=== PATIENT | female | born 1965 | race Caucasian/White ===

== ENCOUNTER → 2017-05-23 12:04 | Outpatient (CLI) | payer MEDICAID, SELFPAY ==
--- NOTE | 2017-05-23 12:07 | RAD_ITS ---
STUDY: X-RAY - RIGHT SHOULDER REASON FOR EXAM: Female, 52 years old. Right shoulder pain following a recent fall. TECHNIQUE: 4 view(s) of the shoulder. COMPARISON: None. FINDINGS: Normal glenohumeral articulation. Normal acromioclavicular joint. Normal acromion. Normal humeral head and visualized proximal humerus. The soft tissue structures are unremarkable. Normal visualized pulmonary apex. RAD/Shoulder min 2 Views IMPRESSION: Normal x-ray examination of the shoulder. Electronically Signed: Mauro Gannon MD at 11:01 EST Tel [phone], Service support ,
== END ==
PROVIDERS: Family Provider Family Medicine; PCP Family Medicine; Visit Provider Family Medicine
DX: M25.519 Pain in unspecified shoulder (principal)
CPT/HCPCS: 73030

== ENCOUNTER 2017-05-28 11:57 | Emergency (ER) | payer MEDICAID, SELFPAY ==
[2017-05-28 11:58] VITALS: BP 192/96; PULSE 94; RESP 16; TEMP 36.6; O2SAT 99; BMI 41.6
--- NOTE | 2017-05-28 12:11 | RAD_ITS ---
STUDY: X-RAY - RIGHT ELBOW REASON FOR EXAM: Female, 52 years old. fell, elbow pain. TECHNIQUE: 3 view(s) of the elbow. COMPARISON: None. FINDINGS: Normal visualized humerus, radius and ulna. Normal radiocapitellar and ulnotrochlear articulations. The soft tissue structures are unremarkable. RAD/Elbow min 3 Views IMPRESSION: Normal x-ray examination of the elbow. Electronically Signed: Ashwin Chen MD at 12:49 EST Tel , Service support ,
--- NOTE | 2017-05-28 12:15 | ED.VISSUMM ---
- ER Visit Summary Date of Service: 05/28/17 Chief Complaint: Right elbow pain History of Present Illness: The patient is a 52 F who states that one week ago she tripped and fell sustaining a FOOSH injury to her right shoulder she went through [facility]. She had x-rays of the shoulder that were negative. Over the past several days she has had pain in her right elbow right biceps. She states that she has tried to not use the arm very much keeping it in a 90? flexion at the elbow joint. She notes soreness with range of motion. Physical Examination: Febrile vital signs are stable Right upper extremity the shoulder joint appears normal. Patient is tenderness over the biceps muscle. I can fully flex and extend the elbow though the patient guards it. The biceps appears tense. Neurovascular she is intact distally. Test Results: Elbow x-rays were negative for fracture Emergency Department Course and Treatment: Patient will be encouraged to use the joint. I think that this is most likely muscle spasm of the biceps from her guarding and not using the arm. I think if she would increase range of motion and use utilize it more that will solve the problem. Impression: Good right biceps muscle spasm This note was generated with [employer] dictation software. It may contain incorrect words, spelling, and punctuation that were not noted in review of the chart prior to signing ED Disposition - Plan for ED Patient: Disposition: Home or Assisted Living Chief Complaint: Upper Extremity Injury Instructions: ED Spasm Muscle Referrals: John Castillo MD [Primary Care Provider] - (as needed) Additional Instructions: You need to start using the arm. This should loosen up her muscles and allow it to return to normal.
--- NOTE | 2017-05-28 12:26 | ED.DCSUM_ITS ---
- ER Visit Summary Date of Service: 05/28/17 Chief Complaint: Right elbow pain History of Present Illness: The patient is a 52 F who states that one week ago she tripped and fell sustaining a FOOSH injury to her right shoulder she went through [facility]. She had x-rays of the shoulder that were negative. Over the past several days she has had pain in her right elbow right biceps. She states that she has tried to not use the arm very much keeping it in a 90? flexion at the elbow joint. She notes soreness with range of motion. Physical Examination: Febrile vital signs are stable Right upper extremity the shoulder joint appears normal. Patient is tenderness over the biceps muscle. I can fully flex and extend the elbow though the patient guards it. The biceps appears tense. Neurovascular she is intact distally. Test Results: Elbow x-rays were negative for fracture Emergency Department Course and Treatment: Patient will be encouraged to use the joint. I think that this is most likely muscle spasm of the biceps from her guarding and not using the arm. I think if she would increase range of motion and use utilize it more that will solve the problem. Impression: Good right biceps muscle spasm This note was generated with [employer] dictation software. It may contain incorrect words, spelling, and punctuation that were not noted in review of the chart prior to signing ED Disposition - Plan for ED Patient: Disposition: Home or Assisted Living Chief Complaint: Upper Extremity Injury Instructions: ED Spasm Muscle Referrals: John Castillo MD [Primary Care Provider] - (as needed) Additional Instructions: You need to start using the arm. This should loosen up her muscles and allow it to return to normal.
[2017-05-28 12:33] VITALS: BP 127/82; PULSE 63; RESP 18; O2SAT 97
== END 2017-05-28 12:37 | disposition home or self-care (01) ==
LOC: ED 12:35
PROVIDERS: Emergency Provider Emergency Medicine; Family Provider Family Medicine; PCP Family Medicine
DX: M62.838 Other muscle spasm (principal); E11.9 Type 2 diabetes mellitus without complications; I10 Essential (primary) hypertension; K21.9 Gastro-esophageal reflux disease without esophagitis; G47.33 Obstructive sleep apnea (adult) (pediatric)
CPT/HCPCS: 73080; 99282

== ENCOUNTER → 2017-08-07 16:25 | Outpatient (CLI) | payer MEDICAID, SELFPAY ==
--- NOTE | 2017-08-07 16:30 | RAD_ITS ---
STUDY: X-RAY - ABDOMEN/PELVIS REASON FOR EXAM: Female, 52 years old. Abdominal bloating. TECHNIQUE: AP supine and upright views of the abdomen and pelvis. COMPARISON: None. FINDINGS: Normal visualized lung bases. There is a long amount colonic feces. There is no obvious obstruction. There is no small bowel dilatation. There is no demonstrated free abdominal air. The visualized liver, spleen and kidneys are grossly normal in size and morphology. Normal soft tissue structures. Normal visualized osseous structures. RAD/[employer] Decub and/or Erect IMPRESSION: Constipation without obstruction. Electronically Signed: Bryon Roman DO at 19:49 EDT Tel [phone], Service support ,
[2017-08-07 17:33] LABS: Absolute Lymphocyte Count 1.68 X10^3/ul (0.83-4.51); Absolute Neutrophil Count 5.7 X10^3/uL (2.0-7.7); Basophil# 0.04 X10^3/uL; Basophil% 0.5 % (0-1); Eosinophil# 0.28 X10^3/uL; Eosinophils% 3.4 % (0-5); Hematocrit 31.6 % (37-47); Hemoglobin 9.6 g/dl (12.0-15.0); Lymphocyte # 1.68 X10^3/ul (4.0); Lymphocyte % 20.2 % (19-41); Mean Corp Hgb Conc 30.4 g/gl (32-36); Mean Corpuscular Volume 88.8 fL (81-99); Mean Platelet Vol. 11.8 fl (6.2-12.0); Monocyte# 0.59 X10^3/uL; Monocyte% 7.1 % (0-10); Neutrophil # 5.71 X10^3/uL (2.7-7.7); Neutrophil % 68.6 % (47-70); Platelet Count 206 K/mm3 (150-450); RBC Distribution Width CV 14.7 % (11.6-14.6); RBC Distribution Width SD 47.1 fl (35.1-43.9); Red Blood Count 3.56 M/mm3 (4.2-5.4); White Blood Count 8.3 K/mm3 (4.4-11.0)
[2017-08-07 17:52] LABS: POSITIVE COUNT NO; POSITIVE DIFFERENTIAL NO; POSITIVE MORPHOLOGY NO
[2017-08-07 17:59] LABS: ALB/GLOB Ratio 0.7 RATIO (0.9-2.4); AST(SGOT) 19 U/L (15-37); Alanine Aminotransfer ALT/SGPT 16 U/L (13-56); Albumin, Serum 2.9 g/dL (3.2-5.0); Alkaline Phosphatase 101 U/L (45-117); Anion Gap 7 (5-15); BUN 25 mg/dL (7-18); BUN/Creat Ratio 23.6 RATIO (10-20); Calcium,Total 8.4 mg/dL (8.5-10.1); Chloride 109 mmol/L (98-107); Creatinine, Serum 1.06 mg/dL (0.55-1.02); EST Glomerular Filtration Rate 58 mL/min (>60); Est Glom Filt Rate - Afr Amer 70 mL/min (>60); Ferritin 144 ng/mL (8-252); Free T3 2.4 pg/mL (2.18-3.98); Globulin 3.9 g/dL (2.2-4.2); Glucose 95 mg/dL (74-106); Iron 38 ug/dL (50-170); Potassium 4.6 mmol/L (3.5-5.1); Protein, Total 6.8 g/dL (6.4-8.2); Sodium Level 144 mmol/L (136-145); T4 Free Direct 1.14 ng/dL (0.76-1.46); Thyroid Stim Hormone (TSH) 1.86 uIU/mL (0.358-3.74)
[2017-08-07 18:00] LABS: BNP,B-Type NATRIURETIC PEPTIDE 53.6 pg/mL (0-100)
== END ==
PROVIDERS: Family Provider Family Medicine; PCP Family Medicine; Visit Provider Family Medicine
DX: R14.0 Abdominal distension (gaseous) (principal); D50.9 Iron deficiency anemia, unspecified; R60.0 Localized edema; I10 Essential (primary) hypertension; E11.622 Type 2 diabetes mellitus with other skin ulcer
CPT/HCPCS: 74019; 80053; 82728; 83540; 83880; 84439; 84443; 84481; 85025

== ENCOUNTER → 2017-08-29 14:55 | Outpatient (CLI) | payer MEDICAID, SELFPAY ==
[2017-08-29 17:52] LABS: Anion Gap 9 (5-15); BUN 32 mg/dL (7-18); BUN/Creat Ratio 29.4 RATIO (10-20); Calcium,Total 8.6 mg/dL (8.5-10.1); Chloride 110 mmol/L (98-107); Creatinine, Serum 1.09 mg/dL (0.55-1.02); EST Glomerular Filtration Rate 56 mL/min (>60); Est Glom Filt Rate - Afr Amer 68 mL/min (>60); Glucose 127 mg/dL (74-106); Potassium 4.4 mmol/L (3.5-5.1); Sodium Level 145 mmol/L (136-145)
== END ==
PROVIDERS: Family Provider Family Medicine; PCP Family Medicine; Visit Provider Family Medicine
DX: I10 Essential (primary) hypertension (principal)
CPT/HCPCS: 36415; 80048

== ENCOUNTER → 2017-09-15 15:07 | Outpatient (CLI) | payer MEDICAID, SELFPAY ==
[2017-09-15 17:40] LABS: Amylase 42 U/L (25-115); Anion Gap 6 (5-15); BUN 29 mg/dL (7-18); BUN/Creat Ratio 23.8 RATIO (10-20); Calcium,Total 8.2 mg/dL (8.5-10.1); Chloride 113 mmol/L (98-107); Creatinine, Serum 1.22 mg/dL (0.55-1.02); EST Glomerular Filtration Rate 49 mL/min (>60); Est Glom Filt Rate - Afr Amer 60 mL/min (>60); Glucose 133 mg/dL (74-106); Lipase 227 U/L (73-393); Potassium 4.1 mmol/L (3.5-5.1); Sodium Level 146 mmol/L (136-145)
[2017-09-19 13:55] LABS: Vitamin D 1,25-Dihydroxy 25.8 pg/mL (19.9-79.3)
[2017-09-21 13:48] LABS: Vitamin A, Retinol 49.3 ug/dL (33.1-100.0)
== END ==
PROVIDERS: Family Provider Family Medicine; PCP Family Medicine; Visit Provider Family Medicine
DX: R19.7 Diarrhea, unspecified (principal); R60.0 Localized edema
CPT/HCPCS: 36415; 80048; 82150; 82652; 83690; 84590

== ENCOUNTER 2017-09-17 15:19 | Emergency (ER) | payer MEDICAID, SELFPAY ==
[2017-09-17 15:21] VITALS: BP 196/99; PULSE 87; RESP 18; TEMP 36.3; O2SAT 95; BMI 45.3
[2017-09-17 15:24] VITALS: BP 156/92; PULSE 87; RESP 16; O2SAT 97
--- NOTE | 2017-09-17 16:08 | ED.DCSUM_ITS ---
- ER Visit Summary Date of Service: 09/17/17 Chief Complaint: [] Bilateral leg edema History of Present Illness: The patient is a 52 F planing of the above. Is a chronic problem.. Worse for the last 2 weeks. She is on Lasix 30 mg twice a day. Took a second dose extra today at the request of her doctor. She is appointment with her family doctor tomorrow. She does wear tight compression socks. She has chronic lymphedema. She states she leg raises her legs up at night. She says she has some mild shortness of breath Physical Examination: [] Vital signs reviewed General: Well-nourished well-developed Head: Normocephalic atraumatic Eyes: Pupils equal round and reactive to light extraocular movements intact ENT: TMs clear no hemotympanum no trauma Neck: Nontender full range of motion Cardiovascular: Regular rate rhythm no murmurs normal S1-S2 Respiratory: No distress clear to auscultation bilaterally chest nontender Abdomen: Soft nontender nondistended normal bowel sounds no masses Back: Nontender no CVA tenderness Extremities: Lower extremity edema 1+ to the knees bilateral. No calf tenderness. Negative Homans sign. Normal pulses and temperature Neuro alert oriented cranial nerves II through XII intact normal strength sensation reflexes Test Results: [] Emergency Department Course and Treatment: [] This is a chronic edema issue for the patient. She does not have a DVT. We give her CHERRY wraps. She artery took a third dose of Lasix. She will elevate them and limit her water intake. She does not do this. She has an appointment tomorrow. I do not think she has a PE or DVT. Her lungs are completely normal Treatment Plan: [] Disposition: [] Impression: [] Chronic lower extremity edema This note was generated with [employer] software. It may contain incorrect words, spelling, and punctuation that were not noted in review of the chart prior to signing ED Disposition - Plan for ED Patient: Chief Complaint: Edema Referrals: John Castillo MD [Primary Care Provider] -
--- NOTE | 2017-09-17 16:08 | ED.DEP ---
ED Disposition - Plan for ED Patient: Disposition: Home or Assisted Living Chief Complaint: Edema Instructions: ED Lymphedema Referrals: John Castillo MD [Primary Care Provider] -
[2017-09-17 16:16] VITALS: BP 156/92; PULSE 87; RESP 16; O2SAT 97
--- NOTE | 2017-09-17 16:25 | ED.RN ---
PT C/O FEEL LIKE MY BLOOD SUGAR IS LOW ONE TOUCH COMPLETED AND RESULT 60. OJ AND PEANUT BUTTER CRACKERS GIVEN; DR. GASTON INFORMED OF SAME. WILL RECHECK BLOOD SUGAR THEN DISCHARGE PER DR. GASTON.
[2017-09-17 16:30] LABS: Bedside Glucose 60 mg/dL (70-110)
[2017-09-17 16:45] LABS: Bedside Glucose 71 mg/dL (70-110)
== END 2017-09-17 16:46 | disposition home or self-care (01) ==
LOC: ED 16:15
PROVIDERS: Emergency Provider Emergency Medicine; Family Provider Family Medicine; PCP Family Medicine
DX: R60.0 Localized edema (principal); E66.9 Obesity, unspecified; I89.0 Lymphedema, not elsewhere classified; E11.9 Type 2 diabetes mellitus without complications; G47.33 Obstructive sleep apnea (adult) (pediatric)
CPT/HCPCS: 82962; 99282

== ENCOUNTER 2017-10-29 07:50 | Emergency (ER) | payer MEDICAID, SELFPAY ==
[2017-10-29 07:51] VITALS: BP 177/100; PULSE 110; RESP 20; TEMP 36.4; O2SAT 96; BMI 41.4
--- NOTE | 2017-10-29 08:36 | ED.DCSUM_ITS ---
- ER Visit Summary Date of Service: 10/29/17 Chief Complaint: Fall History of Present Illness: The patient is a 52 F who fell in the bathtub this morning hit her lumbar region. No head injury no loss of consciousness due to the pain it was difficult for her to crawl out of the bathtub and reach her phone. She called the paramedics. She has no radiation of her pain. No bowel or bladder compromise. She has no neck pain. Physical Examination: She appears in slight distress. Moist mucous membranes, no obvious facial deformity No C-spine tenderness supple neck. Regular rate and rhythm without any obvious murmurs Clear lungs bilaterally speaking in full sentences without any obvious respiratory distress Abdomen soft and nontender no guarding or rebound Moves all extremities without any difficulty or pain. She has a missing left great toe due to her diabetes, she can initiate the dorsiflexion of her great toe on that side, dorsiflexion of the great toe on the right is normal. She has normal plantar flexion bilaterally. She has 1+ patellar reflexes and neurologically intact. She has tenderness over the L1 through S1 regions. Skin does not show any obvious rashes or lesions, no trauma. Alert oriented ?3 with no gross focal deficit Test Results: [Straight T-spine and LS-spine are unremarkable other than chronic DJD, patient significantly improved. She is ambulating and will be discharged in stable condition.] Impression: [] Mechanical fall Lumbar strain This note was generated with [employer] dictation software. It may contain incorrect words, spelling, and punctuation that were not noted in review of the chart prior to signing ED Disposition - Plan for ED Patient: Disposition: Home or Assisted Living Chief Complaint: Back Instructions: ED Sprain Strain Lumbar Prescriptions: Hydrocodone Bitart/Apap 5-325 [[place] 5/325] 1 - 2 tab PO Q4H PRN PRN 4 Days #12 tab PRN Reason: Pain Cyclobenzaprine [Flexeril] 10 mg PO TID PRN #20 tab PRN Reason: Muscle Spasm Referrals: John Castillo MD [Primary Care Provider] - 2 Days
--- NOTE | 2017-10-29 08:37 | RAD_ITS ---
STUDY: X-RAY - THORACIC SPINE REASON FOR EXAM: Female, 52 years old. fell this am, mid back pain TECHNIQUE: 3 view(s) of the thoracic spine were obtained. COMPARISON: None. FINDINGS: Normal kyphosis of the thoracic spine. There is no substantial scoliosis. There is demineralization of the thoracic spine with endplate spondylosis. There is multilevel disc space narrowing of the thoracic spine. The soft tissue structures are unremarkable. RAD/Thoracic Spine 2 Views IMPRESSION: There is demineralization of the thoracic spine with endplate spondylosis. There is multilevel disc space narrowing of the thoracic spine. Electronically Signed: Milton Walker MD at 9:50 EDT Tel , Service support ,
--- NOTE | 2017-10-29 08:37 | RAD_ITS ---
STUDY: X-RAY - LUMBAR SPINE REASON FOR EXAM: Female, 52 years old. Lower back pain TECHNIQUE: 3 view(s) of the lumbar spine were obtained. COMPARISON: None FINDINGS: Normal lumbar lordosis. There is no substantial scoliosis. There is a normal alignment of the vertebrae. There is multilevel endplate spondylosis of the lumbar vertebrae. There is multi-level degenerative disc disease with multi-level disc space narrowing. The soft tissue structures are unremarkable. RAD/Lumbar Spine 2 or 3 Views IMPRESSION: Degenerative changes of the spine, as detailed above. Electronically Signed: Milton Walker MD at 9:51 EDT Tel , Service support ,
[2017-10-29] MEDS: HYDROmorphone 1 MG/ML Syringe SC (09:59)
[2017-10-29 10:02] VITALS: PULSE 102; RESP 18; O2SAT 95
[2017-10-29 11:24] VITALS: BP 183/94; PULSE 87; RESP 18; O2SAT 99
== END 2017-10-29 11:25 | disposition home or self-care (01) ==
PROVIDERS: Emergency Provider Emergency Medicine; Family Provider Family Medicine; PCP Family Medicine
DX: S39.012A Strain of muscle, fascia and tendon of lower back, initial encounter (principal); W18.2XXA Fall in (into) shower or empty bathtub, initial encounter; Y93.E1 Activity, personal bathing and showering; Y92.002 Bathroom of unspecified non-institutional (private) residence as the place of occurrence of the external cause; Y99.9 Unspecified external cause status; E11.9 Type 2 diabetes mellitus without complications; G47.33 Obstructive sleep apnea (adult) (pediatric)
CPT/HCPCS: 72070; 72100; 96372; 99284

== ENCOUNTER 2017-11-01 21:05 | Emergency (ER) | payer MEDICAID, SELFPAY ==
[2017-11-01 21:06] VITALS: BP 207/93; PULSE 93; RESP 18; TEMP 36.6; O2SAT 97; BMI 40.4
--- NOTE | 2017-11-01 21:52 | ED.VISSUMM ---
- ER Visit Summary Date of Service: 11/01/17 Chief Complaint: Back pain History of Present Illness: The patient is a 52 F states she fell in her shower on Monday. Slipped on the water. Injuring her mid lower back. She was seen in the ER at that time she had plain x-rays of her thoracic and lumbar spine which showed significant arthritis and degenerative disease of the disc space but no acute fracture. She was diagnosed with a lumbar and thoracic drain. She is been using NSAIDs. She is complaining of continued pain. She denies any radiation into her legs. She denies any weakness or numbness to her legs. She denies any bowel or bladder retention or incontinence. She denies any fever. She denies abdominal pain. She denies any weakness of her upper or lower extremities. She is never had any back surgeries. She is on no blood thinners. She did not hit her head nor have any LOC when she initially fell. Physical Examination: Well-appearing middle-age female. Vital signs stable. Afebrile. H EENT exam unremarkable atraumatic. Pupils round reactive light. No signs of facial or scalp trauma. C-spine nontender. Trachea midline. Lungs clear to auscultation bilaterally. Heart regular rate and rhythm. Abdomen soft nontender. Normal bowel sounds no peritoneal signs. She is moving all 4 extremities. They are neurovascularly intact. No deformity. Normal range of motion. 5 out of 5 technology internship strength bilaterally. Dorsi plantar flexion intact. Back exam she has tenderness diffusely over the lumbar spine. There is no ecchymosis or bruising. There is no pinpoint tenderness. There is also javy-lumbar soft tissue tenderness. No redness or warmth. Cervical and thoracic spine are nontender to this time. Neurologic exam normal. She has no focal motor or sensory deficits in the upper or lower extremities. She has normal motor strength and range of motion of both upper and lower extremities. In the lower extremities dorsi plantar flexion intact. Negative straight leg raise bilaterally. No cauda equina. No saddle anesthesia. Test Results: None I did review her x-ray results from her last visit. They showed significant degenerative changes but no acute fracture as read by the radiologist and ER physician. Emergency Department Course and Treatment: Patient be discharged home with a [employer] home pack. Treatment Plan: Follow-up with your primary care physician. Disposition: Discharge Impression: Acute back pain status post fall several days ago. 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 It may contain incorrect words, spelling, and punctuation that were not noted in review of the chart prior to signing ED Disposition - Plan for ED Patient: Chief Complaint: Back Referrals: John Castillo MD [Primary Care Provider] -
--- NOTE | 2017-11-01 21:56 | ED.DCSUM_ITS ---
- ER Visit Summary Date of Service: 11/01/17 Chief Complaint: Back pain History of Present Illness: The patient is a 52 F states she fell in her shower on Monday. Slipped on the water. Injuring her mid lower back. She was seen in the ER at that time she had plain x-rays of her thoracic and lumbar spine which showed significant arthritis and degenerative disease of the disc space but no acute fracture. She was diagnosed with a lumbar and thoracic drain. She is been using NSAIDs. She is complaining of continued pain. She denies any radiation into her legs. She denies any weakness or numbness to her legs. She denies any bowel or bladder retention or incontinence. She denies any fever. She denies abdominal pain. She denies any weakness of her upper or lower extremities. She is never had any back surgeries. She is on no blood thinners. She did not hit her head nor have any LOC when she initially fell. Physical Examination: Well-appearing middle-age female. Vital signs stable. Afebrile. H EENT exam unremarkable atraumatic. Pupils round reactive light. No signs of facial or scalp trauma. C-spine nontender. Trachea midline. Lungs clear to auscultation bilaterally. Heart regular rate and rhythm. Abdomen soft nontender. Normal bowel sounds no peritoneal signs. She is moving all 4 extremities. They are neurovascularly intact. No deformity. Normal range of motion. 5 out of 5 complaint inspector strength bilaterally. Dorsi plantar flexion intact. Back exam she has tenderness diffusely over the lumbar spine. There is no ecchymosis or bruising. There is no pinpoint tenderness. There is also javy-lumbar soft tissue tenderness. No redness or warmth. Cervical and thoracic spine are nontender to this time. Neurologic exam normal. She has no focal motor or sensory deficits in the upper or lower extremities. She has normal motor strength and range of motion of both upper and lower extremities. In the lower extremities dorsi plantar flexion intact. Negative straight leg raise bilaterally. No cauda equina. No saddle anesthesia. Test Results: None I did review her x-ray results from her last visit. They showed significant degenerative changes but no acute fracture as read by the radiologist and ER physician. Emergency Department Course and Treatment: Patient be discharged home with a [employer] home pack. Treatment Plan: Follow-up with your primary care physician. Disposition: Discharge Impression: Acute back pain status post fall several days ago. 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 It may contain incorrect words, spelling, and punctuation that were not noted in review of the chart prior to signing ED Disposition - Plan for ED Patient: Chief Complaint: Back Referrals: John Castillo MD [Primary Care Provider] -
--- NOTE | 2017-11-01 21:56 | ED.DEP ---
ED Disposition - Plan for ED Patient: Disposition: Home or Assisted Living Chief Complaint: Back Instructions: ED Neck Back Pain General Referrals: John Castillo MD [Primary Care Provider] - As soon as possible Additional Instructions: [place] for more severe pain otherwise Tylenol and Motrin. Call and follow-up your primary care physician. Return if any bowel or bladder incontinence or leg weakness.
[2017-11-01] MEDS: HYDROcodone Bitartrate/Apap 5/325 Tablet PO (22:13)
[2017-11-01 22:14] VITALS: BP 160/82; PULSE 87; RESP 15; O2SAT 98
--- NOTE | 2017-11-01 22:15 | ED.RN ---
PT GIVEN WRITTEN AND VERTBAL INSTRUCTIONS AND EDUCATION ON HOME PACK. PT NOT TO DRIVE WHEN TAKING [place]. PT VERBALIZES UNDERSTANDING OF INSTRUCTIONS AND DENIES ANY FURTHER QUESTIONS. PT AMBULATES OUT OF DEPT.
== END 2017-11-01 22:16 | disposition home or self-care (01) ==
PROVIDERS: Emergency Provider Emergency Medicine; Family Provider Family Medicine; PCP Family Medicine
DX: M54.9 Dorsalgia, unspecified (principal); M51.36 Other intervertebral disc degeneration, lumbar region; M51.34 Other intervertebral disc degeneration, thoracic region; W18.2XXA Fall in (into) shower or empty bathtub, initial encounter; Y93.E1 Activity, personal bathing and showering; Y92.002 Bathroom of unspecified non-institutional (private) residence as the place of occurrence of the external cause; Y99.9 Unspecified external cause status; R19.7 Diarrhea, unspecified; E11.9 Type 2 diabetes mellitus without complications; I10 Essential (primary) hypertension
CPT/HCPCS: 99282

== ENCOUNTER → 2017-11-21 16:23 | Outpatient (CLI) | payer MEDICAID, SELFPAY ==
[2017-11-21 16:46] LABS: Bacteria 0 SEEN /hpf (None Seen); Mucous, Urine 0 SEEN /hpf (<or=2+)
[2017-11-21 18:12] LABS: Color, Urine Yellow (Yellow); Glucose, Dipstick Normal (Normal); Ketone-Dipstick Negative (Negative); Leukocyte Esterase-Dipstick 25 /ul (Negative); Nitrite-Dipstick Negative (Negative); Occult Blood-Urine 25 /ul (Negative); Protein-Dipstick 100 mg/dl (Negative); Specific Gravity, Urine 1.015 (1.002-1.030); Urine Bilirubin Dipstick Negative (Negative); Urine Clarity Sl. Cloudy (Clear); Urine Urobilinogen Normal (Normal)
[2017-11-21 18:41] LABS: Red Blood Cells-Urine 0-5 SEEN /hpf (0-5); Squamous Epithelial Cells - UA 0-5 SEEN /hpf (5-10); White Blood Cells 0-5 SEEN /hpf (0-5)
== END ==
PROVIDERS: Family Provider Family Medicine; PCP Family Medicine; Visit Provider Family Medicine
DX: R30.0 Dysuria (principal)
CPT/HCPCS: 81001; 87077; 87086; 87088

== ENCOUNTER → 2017-11-25 07:12 | Outpatient (CLI) | payer MEDICAID, SELFPAY ==
[2017-11-25 09:42] LABS: Anion Gap 6 (5-15); BUN 34 mg/dL (7-18); BUN/Creat Ratio 25.6 RATIO (10-20); Calcium,Total 8.7 mg/dL (8.5-10.1); Chloride 112 mmol/L (98-107); Cholesterol 146 mg/dL (200); Creatinine, Serum 1.33 mg/dL (0.55-1.02); EST Glomerular Filtration Rate 45 mL/min (>60); Est Glom Filt Rate - Afr Amer 54 mL/min (>60); Glucose 184 mg/dL (74-106); High Density Lipoprotein 41 mg/dL; Potassium 4.6 mmol/L (3.5-5.1); Sodium Level 145 mmol/L (136-145); Triglycerides 91 mg/dL; Very Low Density Lipoprotein 18 mg/dL (5-40)
== END ==
PROVIDERS: Family Provider Family Medicine; PCP Family Medicine; Visit Provider Family Medicine
DX: E11.622 Type 2 diabetes mellitus with other skin ulcer (principal)
CPT/HCPCS: 36415; 80048; 80061

== ENCOUNTER → 2018-02-15 16:29 | Outpatient (CLI) | payer OTHER, MEDICAID, SELFPAY ==
--- NOTE | 2018-02-15 16:42 | RAD_ITS ---
HISTORY: SOB AND COUGH EXAM: XR Chest 2 Views: COMPARISON: 03/20/2017 FINDINGS: No significant change. Normal heart size. No vascular congestion, pleural effusion, or acute pulmonary infiltration. No pneumothorax. RAD/Chest PA and Lateral IMPRESSION: No acute disease or significant change. at 0132 Reported and signed by: Horacio Pereyra MD Electronically Signed: Horacio Pereyra, at 1:30 EST Tel , Service support ,
--- NOTE | 2018-02-15 16:42 | RAD_ITS ---
HISTORY: PATIENT FELL. PAIN IN LEFT KNEE. COMPARISON: None FINDINGS: XR Knee Complete 4 Views Recent, minimally displaced fracture of the proximal shaft of the left fibula. No additional fractures. Joint spaces are preserved. No dislocation. No loose body or joint effusion. Minor spurring of the anterior-superior margin of the patella at quadriceps insertion. RAD/Knee 4 or More Views IMPRESSION: Recent, minimally displaced fracture of the left fibular proximal shaft. Otherwise negative left knee exam. at 0219 Reported and signed by: Horacio Pereyra MD Electronically Signed: Horacio Pereyra, at 2:19 EST Tel , Service support ,
[2018-02-15 18:24] LABS: Absolute Lymphocyte Count 1.79 X10^3/ul (0.83-4.51); Absolute Neutrophil Count 5.2 X10^3/uL (2.0-7.7); Basophil# 0.03 X10^3/uL; Basophil% 0.4 % (0-1); Eosinophils% 2.5 % (0-5); Hematocrit 34.3 % (37-47); Hemoglobin 10.4 g/dl (12.0-15.0); Lymphocyte # 1.79 X10^3/ul (4.0); Lymphocyte % 22.7 % (19-41); Mean Corp Hgb Conc 30.3 g/gl (32-36); Mean Corpuscular Hgb 27.7 pg (27.0-32.0); Mean Corpuscular Volume 91.5 fL (81-99); Mean Platelet Vol. 11.4 fl (6.2-12.0); Monocyte% 7.6 % (0-10); Neutrophil # 5.24 X10^3/uL (2.7-7.7); Neutrophil % 66.4 % (47-70); Platelet Count 240 K/mm3 (150-450); RBC Distribution Width CV 14.3 % (11.6-14.6); RBC Distribution Width SD 46.2 fl (35.1-43.9); Red Blood Count 3.75 M/mm3 (4.2-5.4); White Blood Count 7.9 K/mm3 (4.4-11.0)
[2018-02-15 18:27] LABS: POSITIVE COUNT NO; POSITIVE DIFFERENTIAL NO; POSITIVE MORPHOLOGY NO
[2018-02-15 18:35] LABS: Anion Gap 6 (5-15); BUN 32 mg/dL (7-18); BUN/Creat Ratio 24.1 RATIO (10-20); Calcium,Total 8.5 mg/dL (8.5-10.1); Chloride 112 mmol/L (98-107); Creatinine, Serum 1.33 mg/dL (0.55-1.02); EST Glomerular Filtration Rate 45 mL/min (>60); Est Glom Filt Rate - Afr Amer 54 mL/min (>60); Glucose 83 mg/dL (74-106); Iron 47 ug/dL (50-170); Potassium 4.6 mmol/L (3.5-5.1); Sodium Level 145 mmol/L (136-145)
== END ==
PROVIDERS: Family Provider Family Medicine; PCP Family Medicine; Referring Provider Family Medicine; Visit Provider Family Medicine
DX: M25.569 Pain in unspecified knee (principal); R06.02 Shortness of breath
CPT/HCPCS: 36415; 71046; 73564; 80048; 83540; 85025

== ENCOUNTER 2018-02-27 07:15 | Day surgery (SDC) | payer OTHER, MEDICAID, SELFPAY ==
[2017-12-14 12:57] VITALS: BMI 38.7
[2018-02-27] VITALS (8 sets, daily range): BP systolic 127–164; BP diastolic 68–87; PULSE 73–88; RESP 16; TEMP 36.2–36.6; O2SAT 94–98; BMI 40.6
[2018-02-27 08:06] LABS: Bedside Glucose 167 mg/dL (70-110)
[2018-02-27 09:30] LABS: Prothrombin Time (Protime)PT. 13.1 SECONDS (11.7-14.9)
[2018-02-27 09:31] LABS: Partial Thromboplast Time 27.5 Seconds (24.1-36.2)
--- NOTE | 2018-02-27 10:20 | RAD_ITS ---
STUDY: X-RAY - LEFT ANKLE REASON FOR EXAM: Female, 52 years old. Upper reduction internal fixation in the OR. TECHNIQUE: 3 view(s) of the ankle. COMPARISON: None. FINDINGS: Fluoroscopic imaging provided for open reduction internal fixation of the distal tibial fibular joint utilizing 2 screws fixation devices. Nondisplaced transverse fracture of the proximal fibula. RAD/Ankle min 3 Views IMPRESSION: Intraoperative imaging provided for fixation of the distal tibial fibular joint. Electronically Signed: Mauro Gannon MD at 14:29 EST Tel [phone], Service support ,
--- NOTE | 2018-02-27 11:10 | RAD_ITS ---
STUDY: X-RAY - LEFT TIBIA AND FIBULA REASON FOR EXAM: Female, 52 years old. Postoperative evaluation. TECHNIQUE: 3 view(s) of the tibia and fibula were obtained. COMPARISON: Comparison is made with prior examination done earlier today. FINDINGS: The patient is status post 2 screw fixation of the distal tibial fibular joint. Nondisplaced transverse fracture of the proximal fibular shaft. Postoperative soft tissue changes. RAD/Tibia & Fibula 2 Views IMPRESSION: Status post screw fixation of the distal tibiofibular joint. Nondisplaced fracture of the proximal fibular shaft. Electronically Signed: Mauro Gannon MD at 15:40 EST Tel [phone], Service support ,
--- NOTE | 2018-02-27 11:16 | PCM.IMDPSTOP ---
Immediate Post-Op Note Date of Procedure: 02/27/18 Primary Surgeon/Physician: Ashanti Sotomayor DPM operating cost clerk: Imani Salgado Pre-Operative Diagnosis: L maisonneuve fracture with syndesmotic instability Post-Operative Diagnosis: same Surgery/Procedure Performed:: ORIF left maisonneuve fracture and syndesmotic stabilization Description of Surgical Findings:: see dictation Estimated Blood Loss: minimal Specimen's removed: none Drains: none Type of Anesthesia:: Spinal/Supplemental - Admit VTE Documentation VTE Present on Admission: No VTE Mechan Device Prophylaxis: SCD's, Knee High CRUZ Hose VTE Pharm Prophylaxis ordered?: Yes
--- NOTE | 2018-02-27 11:19 | OP.PN_ITS ---
Immediate Post-Op Note Date of Procedure: 02/27/18 Primary Surgeon/Physician: Ashanti Sotomayor DPM general teller: Imani Salgado Pre-Operative Diagnosis: L maisonneuve fracture with syndesmotic instability Post-Operative Diagnosis: same Surgery/Procedure Performed:: ORIF left maisonneuve fracture and syndesmotic stabilization Description of Surgical Findings:: see dictation Estimated Blood Loss: minimal Specimen's removed: none Drains: none Type of Anesthesia:: Spinal/Supplemental - Admit VTE Documentation VTE Present on Admission: No VTE Mechan Device Prophylaxis: SCD's, Knee High CRUZ Hose VTE Pharm Prophylaxis ordered?: Yes
--- NOTE | 2018-02-27 11:19 | PCM.DC.ORTHO ---
Discharge Activity: May Not Drive, May not drive while taking narcotic pain medications., May Not Shower, Use Walker, Use Crutches Ice area for (Minutes): 20 - behind left knee 20 minutes of each hour while awake Weight Bearing Status: No weight bearing Keep extremity elevated above heart level: Operative Extremity Call your doctor if your incision/area has: Sudden Increased Bleeding Call your doctor if you observe: Fever of 101 or Higher, Shortness of breath, Chest pain, Increased palpitations (irregular heartbeat), Calf discomfort, Uncontrolled pain Cleanse incision/area with: Keep Dressing Clean & Dry Allergies/Adverse Reactions: Allergies Latex, Natural Rubber Allergy (Verified 02/21/18 10:53) Rash Penicillins Allergy (Verified 02/21/18 10:53) Swelling lactose Adverse Reaction (Verified 02/21/18 10:53) Diarrhea Medications to take at Discharge albuterol sulfate HFA 90 mcg/actuation aerosol inhaler 2 puff INHALATION Q4H PRN g 04/11/17 Alogliptin Benzoate [Alogliptin] 25 mg PO DAILY 05/28/17 Basaglar Kwikpen U-100 46 unit SQ QHS 05/28/17 Montelukast [Singulair] 10 mg PO QHS 05/28/17 Omeprazole 40 mg PO DAILY 05/28/17 Bifidobacterium infantis 4 mg capsule 4 mg PO DAILY 06/16/17 furosemide 20 mg tablet 40 mg PO BID tab 09/21/17 glipizide 5 mg tablet 10 mg PO DAILY tab 09/21/17 lisinopril 40 mg tablet 40 mg PO QDAY 09/21/17 loratadine 10 mg capsule 10 mg PO QDAY #30 cap 09/21/17 metoprolol tartrate 25 mg tablet 25 mg PO BID 09/21/17 fluticasone 100 mcg-vilanterol 25 mcg/dose powder for inhalation 1 inh INHALATION Q24H #60 ea 12/14/17 Ibuprofen 600 mg PO DAILY PRN 02/21/18 Lactobacillus Acidophilus [Acidophilus] 1 each PO DAILY 02/21/18 Doxycycline [Vibramycin] 100 mg PO BID 14 Days #28 cap 02/27/18 Hydrocodone Bitart/Apap 5-325 [Harwood 5MG-325MG] 1 tab PO Q4H PRN PRN 7 Days #28 tab 02/27/18 Primary Care Physician: John Castillo MD [Primary Care Provider] - Test Results: Test results from this visit will be discussed in further detail at your follow-up appointment, if applicable. Please Follow Up With: Ashanti Sotomayor DPM - F/u at previously scheduled post operative appointment Proposed Discharge Date: 02/27/18
--- NOTE | 2018-02-27 11:24 | DCINST_ITS ---
Discharge Activity: May Not Drive, May not drive while taking narcotic pain medications., May Not Shower, Use Walker, Use Crutches Ice area for (Minutes): 20 - behind left knee 20 minutes of each hour while awake Weight Bearing Status: No weight bearing Keep extremity elevated above heart level: Operative Extremity Call your doctor if your incision/area has: Sudden Increased Bleeding Call your doctor if you observe: Fever of 101 or Higher, Shortness of breath, Chest pain, Increased palpitations (irregular heartbeat), Calf discomfort, Uncontrolled pain Cleanse incision/area with: Keep Dressing Clean & Dry Allergies/Adverse Reactions: Allergies Latex, Natural Rubber Allergy (Verified 02/21/18 10:53) Rash Penicillins Allergy (Verified 02/21/18 10:53) Swelling lactose Adverse Reaction (Verified 02/21/18 10:53) Diarrhea Medications to take at Discharge albuterol sulfate HFA 90 mcg/actuation aerosol inhaler 2 puff INHALATION Q4H PRN g 04/11/17 Alogliptin Benzoate [Alogliptin] 25 mg PO DAILY 05/28/17 Basaglar Kwikpen U-100 46 unit SQ QHS 05/28/17 Montelukast [Singulair] 10 mg PO QHS 05/28/17 Omeprazole 40 mg PO DAILY 05/28/17 Bifidobacterium infantis 4 mg capsule 4 mg PO DAILY 06/16/17 furosemide 20 mg tablet 40 mg PO BID tab 09/21/17 glipizide 5 mg tablet 10 mg PO DAILY tab 09/21/17 lisinopril 40 mg tablet 40 mg PO QDAY 09/21/17 loratadine 10 mg capsule 10 mg PO QDAY #30 cap 09/21/17 metoprolol tartrate 25 mg tablet 25 mg PO BID 09/21/17 fluticasone 100 mcg-vilanterol 25 mcg/dose powder for inhalation 1 inh INHALATION Q24H #60 ea 12/14/17 Ibuprofen 600 mg PO DAILY PRN 02/21/18 Lactobacillus Acidophilus [Acidophilus] 1 each PO DAILY 02/21/18 Doxycycline [Vibramycin] 100 mg PO BID 14 Days #28 cap 02/27/18 Hydrocodone Bitart/Apap 5-325 [Loyal 5MG-325MG] 1 tab PO Q4H PRN PRN 7 Days #28 tab 02/27/18 Primary Care Physician: John Castillo MD [Primary Care Provider] - Test Results: Test results from this visit will be discussed in further detail at your follow- up appointment, if applicable. Please Follow Up With: Ashanti Sotomayor DPM - F/u at previously scheduled post operative appointment Proposed Discharge Date: 02/27/18
--- NOTE | 2018-02-27 11:40 | RAD_ITS ---
STUDY: X-RAY - LEFT ANKLE REASON FOR EXAM: Female, 52 years old. Postoperative evaluation. TECHNIQUE: 3 view(s) of the ankle. COMPARISON: Comparison is made with prior examination done earlier today. FINDINGS: Normal visualized distal tibia and fibula. Normal medial and lateral malleoli. Normal tibiotalar articulation and ankle mortise. 2 screws are seen at the distal tibial fibular joint. Normal visualized talus and calcaneus. The visualized subtalar, talonavicular, calcaneocuboid and tarsal articulations are normal. Postoperative soft tissue changes. RAD/Ankle min 3 Views IMPRESSION: Status post screw fixation of the distal tibial fibular joint. Electronically Signed: Mauro Gannon MD at 15:38 EST Tel [phone], Service support ,
[2018-02-27 18:50] LABS: Bedside Glucose 153 mg/dL (70-110)
--- NOTE | 2018-02-28 17:54 | PCM.OPRPT ---
Report of Operation Date of Procedure: 02/27/18 Pre-Operative Diagnosis: L maisonneuve fracture with syndesmotic instability Post-Operative Diagnosis: same Surgery/Procedure Performed:: ORIF left maisonneuve fracture and syndesmotic stabilization Description of Surgical Findings:: see dictation certified nurse aide: Imani Salgado Type of Anesthesia:: Spinal/Supplemental Specimen's removed: none Drains: none Estimated Blood Loss (mL): minimal Description of Procedure: Indications: Pt is a 52 yo F who sustained A left Maisonneuve fracture of her fibula with syndesmotic disruption when she fell at work on 02/09/2018. She presented to my office on 02/12/2018 after being seen in the ER for this injury. Radiographs revealed a PER 3 type fracture and surgical intervention was agreed upon. 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 All risks, complications, and alternatives were discussed with the patient, and the patient signed an informed consent. No guarantees were given. Procedure: On 02/28/2018 Lori Ashby was visually and verbally identified in the preoperative holding area. The consent form was again reviewed with the patient, as were all risks, complications, and alternatives and the patient wished to proceed with the proposed surgery. The Left lower leg was marked as the correct operative extremity. The patient was brought to the operating room and placed on the operating room table in the lazy lateral position. After anesthesia, a surgical time out was performed and all present were in agreement. a pneumatic thigh tourniquet was then placed. At this time the left lower extremity was prepped and draped in the usual sterile fashion. after exsanguination with an esmarch the tourniquet was inflated to 300 mmHg. At this time attention was directed to the Left lower leg, using intra operative fluoroscopy the proximal fibula fracture was again visualized and noted to be displaced. Using a #15 blade a linear incision was made over the distal fibula at the level of the tibiofibular joint. The incision was bluntly carried deep through the subcutaneous tissues with careful attention paid to all bleeders, which were clamped and tied or bovied as necessary. All vital neurovascular structures were retracted. Under intra operative fluoroscopy a 3.5mm cortical transyndesmotic screw with a washer was placed per AO technique parallel to the tibiotalar joint angled slightly from the lateral posterior fibula to the medial tibia. A second screw and washer were then placed 1cm distal to that screw and again parallel to the tibiotalar joint under intraoperative fluoroscopy. Syndesmotic stability was confirmed with the external rotation and hook tests. The medial clear space as maintained. The proximal fibular fracture was again visualized under intraoperative fluoroscopy and noted to be in appropriate alignment and position. The incision was flushed with copious amounts of normal sterile saline and closure was initiated. deep layers were closed with 2.0 vicryl, subcutaneous tissue was closed with 3.0 vicryl and 3.0 prolene was used for skin. Adaptic and dry sterile dressing were applied. A multilayer compressive dressing was applied with a well padded posterior splint. Total tourniquet time was 26 minutes. immediate capillary refill was noted to all digits upon deflation. Intra operative fluoroscopy was utilized throughout the case to aid in visualization and confirmation of fracture reduction and screw placement. Interpretation of the images was vital to my decision making process. The patient tolerated the procedure and anesthesia well. The patient was then transported to the postanesthesia care unit by a member of the anesthesia team and myself with all vital signs stable and neurovascular status of the left lower extremity equal to pre-operative levels. Anesthesia will administer a LLE lower sciatic block in PACU. At the end of the case all sponge, needle and instrument counts were found to be correct. Grafts/Implants Used: Danilo 3.5 cortical screws and washers x 2 - Complications none - Admit VTE Documentation VTE Present on Admission: No VTE Mechan Device Prophylaxis: Knee High CRUZ Hose VTE Pharm Prophylaxis ordered?: Yes
--- OUTSIDE RECORDS SUMMARY | 2018-04-10 19:57 | XMS RPT_ITS ---
:1965 Author Organization OHIP Support Name Relationship Address Phone [facility] Unavailable [address] + [place] [address] GRECIA EDWARD Unavailable Unavailable + NEIDA NAVARRO Unavailable Unavailable + [facility] Unavailable [address] + [place] [address] [facility] Unavailable [address] + [place] [address] WAGNER GRECIA Unavailable Unavailable + [facility] Unavailable [address] + [place] [address] WAGNERGROVERER Unavailable Unavailable + [facility] Unavailable [address] + [place] [address] WAGNERGROVERER Unavailable Unavailable + [facility] Unavailable [address] + [place] [address] [facility] Unavailable [address] + [place] [address] WAGNER GRECIA Unavailable Unavailable + [facility] Unavailable [address] + [place] [address] WAGNER GRECIA Unavailable Unavailable + [facility] Unavailable [address] + [place] [address] WAGNER GRECIA Unavailable [address] + [place] [address] [facility] Unavailable [address] + [place] [address] CHROSTOWSKI, GRECIA Unavailable Unavailable + [place] [facility] Unavailable [address] + [place] [address] CHROSTOWSKI, GRECIA Unavailable Unavailable + [place] [facility] Unavailable [address] + [place] [address] CHROSTOWSKI, GRECIA Unavailable Unavailable + [place] [facility] Unavailable [address] + [place] [address] CHROSTOWSKI, GRECIA Unavailable Unavailable + [place] [facility] Unavailable [address] + [place] [address] CHROSTOWSKI, GRECIA Unavailable . + [place], [place] . [facility] Unavailable [address] + [place] [address] CHROSTOWSKI, GRECIA Unavailable . + [place] . [facility] Unavailable [address] + [place] [address] CHROSTOWSKI, GRECIA Unavailable . + [place] . [facility] Unavailable [address] + [place] [address] CHROSTOWSKI, GRECIA Unavailable . + [place] . [facility] Unavailable [address] + [place] [address] CHROSTOWSKI, GRECIA Unavailable Unavailable + [place] [facility] Unavailable [address] + [place] [address] NEIDA NAVARRO Unavailable Unavailable [phone] [place] [address] [facility] Unavailable [address] + [place] [address] NEIDA NAVARRO Unavailable . [phone] [place] [address] [facility] Unavailable [address] + [place] [address] RAMON, NEIDA Unavailable . [phone] [place] [address] [facility] Unavailable [address] + [place] [address] RAMON, NEIDA Unavailable . [phone] [place] [address] [facility] Unavailable [address] + [place] [address] RAMON, NEIDA Unavailable . [phone] [place] [address] [facility] Unavailable [address] + [place] [address] RAMON, NEIDA Unavailable . [phone] [place] [address] [facility] Unavailable [address] + [place] [address] RAMON, NEIDA Unavailable . [phone] [place] [address] [facility] Unavailable [address] + [place] [address] RAMON, NEIDA Unavailable . [phone] [place] [address] Care Team Providers Name Role Phone GILBERTO KENDALLMARGOT Shaikh Attending Unavailable Osmin Castillo Attending Unavailable Ranney, Christopher Referring Unavailable Ranney, Christopher Primary Care Unavailable RanneyManoloer Attending Unavailable Ranney, Christopher Primary Care Unavailable RanOsmin poe Attending Unavailable Ranney, Christopher Primary Care Unavailable Dunia Hill Attending Unavailable Ranney, Christopher Referring Unavailable Ranney, Christopher Primary Care Unavailable Dunia Hill Attending Unavailable Ranney, Christopher Primary Care Unavailable RanneyManoloer Attending Unavailable Ranney, Christopher Referring Unavailable Ranney, Christopher Primary Care Unavailable Ranney, Christopher Primary Care Unavailable Reji Daly Attending Unavailable Dunia Hill Attending Unavailable Ranney, Christopher Referring Unavailable RanneyOsmin Attending Unavailable Ranney, Christopher Referring Unavailable Ranney, Christopher Primary Care Unavailable Osmin Castillo Attending Unavailable Ranney, Christopher Referring Unavailable Ranney, Christopher Primary Care Unavailable Ranney, Christopher Attending Unavailable Ranney, Christopher Referring Unavailable Ranney, Christopher Primary Care Unavailable Ranney, Christopher Primary Care Unavailable Yariel Kruse Attending Unavailable Hill, Dunia Attending Unavailable Ranney, Christopher Referring Unavailable Hill, Dunia Attending Unavailable Ranney, Christopher Referring Unavailable Ranney, Christopher Primary Care Unavailable Doe Panda Attending Unavailable Ranney, Christopher Primary Care Unavailable Demarco Gomez Attending Unavailable Ranney, Christluther Attending Unavailable Ranney, Christopher Referring Unavailable Ranney, Christopher Primary Care Unavailable Ranney, Christopher Attending Unavailable Ranney, Christopher Referring Unavailable Ranney, Christopher Primary Care Unavailable Onur Malave Attending Unavailable Ranney, Christopher Referring Unavailable Ranney, Christopher Attending Unavailable Ranney, Christopher Referring Unavailable Ranney, Christopher Primary Care Unavailable Ashanti Sotomayor Attending Unavailable Светлана, Ashanti Referring Unavailable Ranney, Christopher Primary Care Unavailable Ranney, Christopher Primary Care Unavailable Sementi, Berta Admitting Unavailable Maximus Foster Consulting Unavailable Terleviky, Lonnie Attending Unavailable Sementi, Berta Admitting Unavailable Sementi, Berta Attending Unavailable Ranney, Christopher Primary Care Unavailable Sementi, Berta Consulting Unavailable Sementi, Berta Admitting Unavailable Terleviky, Lonnie Attending Unavailable Ranney, Christopher Primary Care Unavailable Foster, Maximus Consulting Unavailable Tereletsky, Lonnie Consulting Unavailable PROBLEMS PROBLEMS DATE TYPE CONDITION / CODE ATTENDING STATUS SOURCE 03/15/2018 Unknown G89.18 - Other acute Ashanti Sotomayor Active [place] postprocedural pain [facility] / G89.18(ICD-10) Hospital Repository 02/15/2018 Unknown R06.02 - Shortness Ranlui, Active [place] of breath / [facility] R06.02(ICD-10) Hospital Repository 02/15/2018 Unknown M25.569 - Pain in Ranney, Active [place] unspecified knee / [facility] M25.569(ICD-10) Hospital Repository 10/29/2017 Unknown S30.810A - Abrasion Doe Panda Active [place] of lower back and Community pelvis, initial Hospital encounter / Repository S30.810A(ICD-10) 10/03/2017 Unknown R19.7 - Diarrhea, Ranney, Active [place] unspecified / [facility] R19.7(ICD-10) Hospital Repository 10/03/2017 Unknown 787.91 - Diarrhea / Anna, Active [place] 787.91(ICD-9) [facility] Repository 05/23/2017 Unknown M25.519 - Pain in Anna, Active [place] unspecified shoulder [facility] / M25.519(ICD-10) Hospital Repository 04/20/2017 Unknown G47.33 - Obstructive Hill, Active [place] sleep apnea (adult) [facility] (pediatric) / Hospital G47.33(ICD-10) Repository 04/12/2017 Unknown R93.8 - Abnormal Anna, Active [place] findings on [facility] diagnostic imaging Hospital of other specified Repository body structures / R93.8(ICD-10) PROCEDURES PROCEDURES No Procedure Records FoundRESULTS RESULTS CONSULTATION Observed: 03/20/2018 Status: F Source: [place] 1:04 [facility] REPOSITORY [facility] Medical Records Department [address] [place] [address] Consultation 03/07/18 1352 MR#: [id number] Acct: [id number] Name: LORI EDWARD Rep #: [id number] : 1965 52 From: Tom Gyale MD PCP: Osmin Castillo MD Status: DIS IN Y Location: [place] [id number] Problem List (1) Headache Status: Acute Qualifiers: Headache chronicity pattern: unspecified pattern Intractability: intractable (2) Hypertensive urgency Status: Acute Reason for Consult Date of Consultation: 03/07/18 Reason for Consultation: RENTERIA History of Present Illness: The patient is a 52 year old CF with PMH HTN, HLD, DM, DM Neuropathy, Diabetic foot, recent left tibia fracture s/p surgery, DARCY on CPAP, morbid obesity admitted with severe RENTERIA. Per patient she generally does not get any HAs at baseline but yesterday felt severe RENTERIA frontal, acute, without any photophobia, phonophobia, nausea or visual disturbances, has some slurred speech and confusion per ED documentation and per patient, denies any focal motor weakness or new onset focal sensory loss, on admission SBP was > [address] head was reported negative. MRI brain did not show anything acute, but associated probably small vessel disease in rosa maria, MRA head/neck reported no hemodynamically significant stenosis or occlusion. Per patient she denies any balance issues or falls, denies any dizziness, does not use cane or walker to ambulate at baseline. Per patient at present her RENTERIA is much better and is about 2 in intensity. [] Past Medical History Past Medical History (Chronic Problems): Chronic Problems (Last Reviewed 03/07/18 @ 01:15 by Jeovanny Nicolas DO) SOB (shortness of breath) on exertion (Chronic) DARCY (obstructive sleep apnea) (Chronic) CPAP 12 cm of water Iron deficiency anemia (Chronic) Gait instability (Chronic) Venous insufficiency (Chronic) History of amputation of hallux (Chronic) GERD (gastroesophageal reflux disease) (Chronic) Hypertension (Chronic) MRSA (methicillin resistant staph aureus) culture positive (Chronic) left great toe Diabetes mellitus with polyneuropathy (Chronic) Diabetic neuropathy (Chronic) Diabetes mellitus type 2, uncontrolled (Chronic) Medical History: Medical History (Last Reviewed 03/07/18 @ 01:15 by Jeovanny Nicolas DO) H/O: hysterectomy (Resolved) Z98.890, Z90.710 Iron deficiency anemia (Chronic) D50.9 Diarrhea in adult patient (Resolved) R19.7 chronic intermittent diarrhea-etiology unknown Gait instability (Chronic) R26.81 Diabetic foot ulcer (Resolved) E11.621, L97.509 Venous insufficiency (Chronic) History of amputation of hallux (Chronic) Z89.419 GERD (gastroesophageal reflux disease) (Chronic) K21.9 Hypertension (Chronic) I10 Delayed wound healing (Resolved) T14.8 Edema of left lower extremity (Resolved) R60.0 MRSA (methicillin resistant staph aureus) culture positive (Chronic) Z22.322 left great toe Chronic ulcer of left foot with necrosis of muscle (Resolved) L97.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) M86.9 left great toe Malnutrition (Resolved) E46 Diabetes mellitus with polyneuropathy (Chronic) E11.42 Vaginal candidiasis (Resolved) B37.3 Diabetic neuropathy (Chronic) E11.40 Diabetes mellitus type 2, uncontrolled (Chronic) E11.65 Chronic ulcer of right great toe with fat layer exposed (Resolved) L97.512 Diabetic ulcer of left great toe (Resolved) E11.621, L97.529 with osteomylitis of left great toe Puncture wound of toe of left foot (Resolved) S91.139A Cellulitis of toe of left foot (Resolved) L03.032 Allergies Latex, Natural Rubber Allergy (Verified 03/06/18 21:46) Rash Penicillins Allergy (Verified 03/06/18 21:46) Swelling lactose Adverse Reaction (Verified 03/06/18 21:46) Diarrhea Home Medications: Ambulatory Orders Medication Instructions Recorded albuterol sulfate HFA 90 2 puff INHALATION Q4H PRN g 04/11/17 mcg/actuation aerosol inhaler Alogliptin Benzoate [Alogliptin] 25 mg PO DAILY 05/28/17 Basaglar Kwikpen U-100 46 unit SQ QHS 05/28/17 Surgical History: Surgical History (Last Reviewed 03/07/18 @ 01:15 by Jeovanny Nicolas DO) Amputated toe (Resolved) Z89.429 Surgical History: hysterectomy, - - 2 c/s Psychiatric History: No pertinent psych hx 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 Lives: Alone Smoking Status: Never smoker Tobacco Use: Non-smoker Alcohol: Rare Drugs: None - *Family History Sibling History Items: Diabetes, Heart Disease, Hypertension Paternal History Items: Diabetes, Heart Disease, Hypertension Maternal History Items: Diabetes, Hypertension, - - Obesity Review of Systems Constitutional: Reports: - - complete ROS negative except as documented in HPI Patient Problems: Active and Suspected Problems (Last Reviewed 03/07/18 @ 01:15 by Jeovanny Nicolas DO) Hypertensive urgency (Acute) Dehydration (Acute) Headache (Acute) - Physical Exam General: Alert HEENT: Normocephalic Neck: Supple Lungs: Normal air movement Cardiovascular: Normal S1, Normal S2 Abdomen: Bowel Sounds Present Extremities: No cyanosis Neurological: - - consious, alert, CN 2-12 grossly intact, power 5/5 all 4 extremities, no sensory loss, no cerebellar signs, Reflexes + B/L B/S/T/K/A, gait deferred, no NR Psych/Mental Status: Normal Affect Vital Signs Temp Pulse Resp BP Pulse Ox 98.2 F 85 16 173/75 H 96 03/07/18 10:32 03/07/18 12:51 03/07/18 12:51 03/07/18 10:34 03/07/18 10:32 Oxygen Delivery Method Room Air Weight: 114.9 kg Body Mass Index (BMI) 41.5 Finger Stick Blood Glucose 156 Intake and Output for Last 24 Hours Intake Total 1747 / 1747 Balance 1747 / 1747 Laboratory Tests Past 24 Hrs WBC 9.0 RBC 3.92 L Hgb 10.8 L Hct 35.0 L MCV 89.3 MCH 27.6 MCHC 30.9 L RDW 14.0 WBC RBC Hgb Hct MCV MCH MCHC RDW RDW Differential Plt Count MPV POC Glucose POC Glucose 147 H 200 H 156 H Assessment/Plan All Active Problems (Last Reviewed 03/07/18 @ 01:15 by Jeovanny Nicolas DO) Hypertensive urgency (Acute) Dehydration (Acute) Headache (Acute) Amputated toe (Resolved) H/O: hysterectomy (Resolved) Diarrhea in adult patient (Resolved) Diabetic foot ulcer (Resolved) Delayed wound healing (Resolved) Edema of left lower extremity (Resolved) 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 Per patient she generally does not get any HAs at baseline but yesterday felt severe RENTERIA frontal, acute, without any photophobia, phonophobia, nausea or visual disturbances, has some slurred speech and confusion per ED documentation and per patient, denies any focal motor weakness or new onset focal sensory loss, on admission SBP was > [address] head was reported negative. MRI brain did not show anything acute, but associated probably small vessel disease in rosa maria, MRA head/neck reported no hemodynamically significant stenosis or occlusion. Per patient she denies any balance issues or falls, denies any dizziness, does not use cane or walker to ambulate at baseline. Per patient at present her RENTERIA is much better and is about 2 in intensity. Impression Hypertensive urgency RENTERIA-decreased in intensity with decrease in BP Plan -RENTERIA likely secondary to uncontrolled BP. -Better BP control, goal < 130/80 mmHg, will defer to hospitalist team -MRI brain and MRA head/neck reviewed -TTE-p -GI/DVT prophylaxis -Fall precautions -Further medical management per hospitalist team -Please call with questions if any -Thank you for allowing us to participate in patient's care and management Code Visit Inpatient E AND M: [id number] Init Hosp L3 03/20/18 1304 <Electronically signed by Tom Gayle MD> Date Tom Gayle MD Cosigner Signature (if applicable): Date CC: Osmin Castillo MD; Maximus Foster MD Signed CBC-COMPLETE BLOOD CNT Collected: 03/16/2018 Status: F Source: [place] NO DIFF 11:31 AM [facility] REPOSITORY TYPE CODE TESTS RESULT OUT OF RANGE REFERENCE UNITS LAB L100.1000 4.4-11.0 K/mm3 Normal WBC 8.6 LAB L100.1200 4.2-5.4 M/mm3 Low RBC 3.68 LAB L100.1300 12.0-15.0 g/dl Low HGB 10.1 LAB L100.1400 37-47 % Low HCT 33.7 LAB L100.1500 81-99 fL Normal MCV 91.6 LAB L100.1600 27.0-32.0 pg Normal MCH 27.4 LAB L100.1700 32-36 g/gl Low MCHC 30.0 LAB L100.1810 11.6-14.6 % Normal RDW CV 14.2 LAB L100.1820 35.1-43.9 fl High RDW SD 47.2 LAB L100.1900 150-450 K/mm3 Normal PLT 254 LAB L100.2000 6.2-12.0 fl Normal MPV 11.4 Performed By: #### L100.0500, L500.2500 #### [facility] [address] [place], [address] BASIC METABOLIC Collected: 03/16/2018 Status: F Source: [place] PROFILE (BMP) 11:31 AM [facility] REPOSITORY TYPE CODE TESTS RESULT OUT OF RANGE REFERENCE UNITS LAB L501.0100 74-106 mg/dL High GLU 134 Result Comment: Fasting Glucose result greater than or equal to 126 mg/dL suggests DIABETES MELLITUS per A.D.A. criteria. Please note revised GLUCOSE reference range effective 2017. LAB L501.1000 7-18 mg/dL High BUN 24 LAB L501.1100 0.55-1.02 mg/dL High CREAT,SERUM 1.30 Result Comment: The validity of the calculated GFR AND GFRAA in patients over 70 years has not been determined. Clinical correlation is essential. LAB L501.1110 >60 mL/min Low EST GFR 46 Result Comment: Non- GFR Calc LAB L501.1115 >60 mL/min Low EST GFR - AA 55 Result Comment: GFR Calc LAB L501.1300 10-20 RATIO Normal BUN/CRE 18.5 LAB L501.2200 8.5-10.1 mg/dL Low CA 8.3 LAB L501.5300 136-145 mmol/L NA Normal 144 LAB L501.5600 3.5-5.1 mmol/L K Normal 4.4 LAB L501.5900 98-107 mmol/L High CL 111 LAB L501.6100 21.0-32.0 mmol/L Normal CO2 26.0 LAB L501.6200 5-15 Normal GAP 7 Performed By: #### L100.0500, L500.2500 #### [facility] [address] [place], [address] 12 LEAD ELECTROCARDIOGRAM Observed: 03/09/2018 Status: F Source: [place] 2:29 PM [facility] REPOSITORY [facility] Cardiovascular Services [address] [place] [address] 12 Lead EKG 03/06/187 MR#: [id number] Acct: [id number] Name: WAGNERWAYNELORI M Rep #: [id number] : 1965 52 From: Jeff Smith MD Attending Dr: Lonnie Jimenez DO Status: DIS IN Ordering Dr: Haja Muñoz MD Date: 03/06/18 Location: [facility] Sex: F C Admitted: 03/06/18 Test Reason : HEADACHE/HTN Blood Pressure : / mmHG Vent. Rate : 092 BPM Atrial Rate : 092 BPM P-R Int : 172 ms QRS Dur : 084 ms QT Int : 374 ms P-R-T Axes : 051 -09 034 degrees QTc Int : 462 ms Normal sinus rhythm Normal ECG Confirmed by JEFF SMITH MD ([id number]), makeup editor TOOTIE CAGE ([id number]) on 03/09/2018 2:29:45 PM Referred By: OUSMANE Confirmed By:JEFF SMITH MD 03/09/18 1429 Date Jeff Smith MD CC: Osmin Castillo MD; Lonnie Jimenez DO; Haja Muñoz MD Signed DISCHARGE SUMMARY Observed: 03/09/2018 Status: F Source: [place] 9:19 AM [facility] REPOSITORY [facility] Medical Records Department [address] [place] [address] Discharge Summary 03/09/18 0903 MR#: [id number] Acct: [id number] Name: LORI EDWARD Rep #: [id number] : 1965 52 From: Lonnie Jimenez DO PCP: Osmin Castillo MD Status: DIS IN Y Location: [place] [address]-1 Discharge Date and Diagnosis Date of Admission: 03/07/18 Date of Discharge: 03/08/18 - Primary Discharge Diagnosis #1 hypertensive urgency #2 cephalgia secondary to hypertensive urgency #3 chronic kidney disease stage III secondary to type 2 diabetes - Secondary Discharge Diagnosis Chronic Problems (Last Reviewed 03/07/18 @ 01:15 by Jeovanny Nicolas DO) SOB (shortness of breath) on exertion (Chronic) DARCY (obstructive sleep apnea) (Chronic) CPAP 12 cm of water Iron deficiency anemia (Chronic) Gait instability (Chronic) Venous insufficiency (Chronic) History of amputation of hallux (Chronic) GERD (gastroesophageal reflux disease) (Chronic) Hypertension (Chronic) MRSA (methicillin resistant staph aureus) culture positive (Chronic) left great toe Diabetes mellitus with polyneuropathy (Chronic) Diabetic neuropathy (Chronic) Diabetes mellitus type 2, uncontrolled (Chronic) Hospital Course and Treatment Consultations 03/07/18 Consult: Onc/Wound/upper inspector Routine Comment: Reason for Consult:: recent L fibula fx surgery Comments:: patient refused to have drsg taken off to assess Operations: None Procedures: None Summary of Care Provided: The patient is a 52 year old F who was seen in the emergency room at [facility] with chief complaint severe cephalgia and elevated blood pressure with a systolic reading of 228. Workup in the emergency room included a CT of the head which was negative, portable chest x-ray was also negative, CBC showed a mild anemia. Glucose was elevated at 177, BUN and creatinine were elevated at 33 and 1.25. Patient received 10 mg of IV labetalol in the emergency room, she was admitted to PCU and NIH stroke scores were monitored, she had an MRI of the brain, MRI of the head and neck and was seen in consultation by neurology. Neurology felt that the patient's cephalgia was secondary to uncontrolled hypertension. Patient's blood pressure medications were adjusted while she was in the hospital, her imaging studies did not show any evidence of acute stroke. Physical exam: On examination she appeared in good health and spirits. Vital signs as documented. Skin warm and dry and without overt rashes. Neck without JVD. Lungs clear. Heart exam notable for regular rhythm, normal sounds and absence of murmurs, rubs or gallops. Abdomen unremarkable and without evidence of organomegaly, masses, or abdominal aortic enlargement. Extremities nonedematous, patient's left lower leg is covered with a surgery splint.. Neuro: Cranial nerves II through XII are grossly intact, no focal motor deficits were noted, sensation to light touch and pinprick is intact. Psych: Patient is alert and oriented x3, she does not appear anxious or depressed. On 03/08/18, patient was seen and examined felt to be in stable condition for discharge home - Physical Exam Vital Signs Temp Pulse Resp BP Pulse Ox 98.9 F 74 18 166/75 H 94 03/08/18 13:19 03/08/18 13:19 03/08/18 13:19 03/08/18 13:19 03/08/18 13:19 Oxygen Delivery Method Room Air Weight: 114.9 kg Body Mass Index (BMI) 41.5 Finger Stick Blood Glucose 156 Intake and Output for Last 24 Hours Intake Total 3516 / 3516 1602 / 1602 Balance 3516 / 3516 1602 / 1602 POC Glucose POC Glucose 165 H Discharge Activity: Return to Normal Activity Weight Bearing Status: Full weight bearing Home Medications: Medications to take at Discharge albuterol sulfate HFA 90 mcg/actuation aerosol inhaler 2 puff INHALATION Q4H PRN g 04/11/17 Alogliptin Benzoate [Alogliptin] 25 mg PO DAILY 05/28/17 Basaglar Kwikpen U-100 46 unit SQ QHS 05/28/17 Montelukast [Singulair] 10 mg PO QHS 05/28/17 Omeprazole 40 mg PO DAILY 05/28/17 Bifidobacterium infantis 4 mg capsule 4 mg PO DAILY 06/16/17 furosemide 20 mg tablet 40 mg PO BID tab 09/21/17 glipizide 5 mg tablet 10 mg PO DAILY tab 09/21/17 lisinopril 40 mg tablet 40 mg PO QDAY 09/21/17 metoprolol tartrate 25 mg tablet 25 mg PO BID 09/21/17 fluticasone 100 mcg-vilanterol 25 mcg/dose powder for inhalation 1 inh INHALATION Q24H #60 ea 12/14/17 Ibuprofen 600 mg PO DAILY PRN 02/21/18 Lactobacillus Acidophilus [Acidophilus] 1 each PO DAILY 02/21/18 Doxycycline [Vibramycin] 100 mg PO BID 14 Days #28 cap 02/27/18 Loperamide [Imodium] 2 mg PO BID PRN 03/07/18 Metoprolol Tartrate [Lopressor (beta nubia)] 50 mg PO BID #60 tab 03/08/18 loratadine 10 mg capsule 10 mg PO QDAY #30 cap 03/08/18 Following Prescrptions Were Given to Patient: Metoprolol Tartrate [Lopressor (beta nubia)] 50 mg PO BID #60 tab Primary Care Physician: John Castillo MD [Primary Care Provider] - Please follow up with your Primary Care Physician in: in 3 weeks Please Follow Up With: John Castillo MD Disposition: Home Minutes spent on discharge:: 32 Patient Condition:: Stable Medical Necessity - Tobacco Use Smoking Status: Never smoker Tobacco Use: Non-smoker Meaningful Use Info Meaningful Use Diagnoses (Choose all that apply): None applicable Code Visit Inpatient E AND M: 78040 Disch Hosp 03/09/18918 <Electronically signed by Lonnie Jimenez DO> Date Lonnie Jimenez DO Cosigner Signature (if applicable): Date CC: Osmin Castillo MD; Lonnie Jimenez DO Signed DISCHARGE INSTRUCTION Observed: 03/08/2018 Status: F Source: [place] 12:17 PM [facility] REPOSITORY [facility] Medical Records Department [address] [place] [address] Instructions for Home/Discharge Instructions 03/08/18 1214 MR#: [id number] Acct: [id number] Name: LORI EDWARD Rep #: [id number] : 1965 52 From: Lonnie Jimenez DO PCP: Osmin Castillo MD Status: ADM IN - Discharge Diagnoses Current Active Problems: Current Active and Chronic Problems (Last Reviewed 03/07/18 @ 01:15 by Jeovanny Nicolas DO) Hypertensive urgency (Acute) Dehydration (Acute) Headache (Acute) You will use the following diet at home:: Calorie/Carbohydrate Controlled (specify 1200, 1400, etc) - 1800 agnes Your food should be the consistency of: Regular Your liquids should be the consistency of: Regular/Thin Discharge Activity: Return to Normal Activity Weight Bearing Status: Full weight bearing Allergies/Adverse Reactions: Allergies Latex, Natural Rubber Allergy (Verified 03/06/18 21:46) Rash Penicillins Allergy (Verified 03/06/18 21:46) Swelling lactose Adverse Reaction (Verified 03/06/18 21:46) Diarrhea Medications to take at Discharge albuterol sulfate HFA 90 mcg/actuation aerosol inhaler 2 puff INHALATION Q4H PRN g 04/11/17 Alogliptin Benzoate [Alogliptin] 25 mg PO DAILY 05/28/17 Basaglar Gordonikpen U-100 46 unit SQ QHS 05/28/17 Montelukast [Singulair] 10 mg PO QHS 05/28/17 Omeprazole 40 mg PO DAILY 05/28/17 Bifidobacterium infantis 4 mg capsule 4 mg PO DAILY 06/16/17 furosemide 20 mg tablet 40 mg PO BID tab 09/21/17 glipizide 5 mg tablet 10 mg PO DAILY tab 09/21/17 lisinopril 40 mg tablet 40 mg PO QDAY 09/21/17 metoprolol tartrate 25 mg tablet 25 mg PO BID 09/21/17 fluticasone 100 mcg-vilanterol 25 mcg/dose powder for inhalation 1 inh INHALATION Q24H #60 ea 12/14/17 Ibuprofen 600 mg PO DAILY PRN 02/21/18 Lactobacillus Acidophilus [Acidophilus] 1 each PO DAILY 02/21/18 Doxycycline [Vibramycin] 100 mg PO BID 14 Days #28 cap 02/27/18 Loperamide [Imodium] 2 mg PO BID PRN 03/07/18 Metoprolol Tartrate [Lopressor (beta nubia)] 50 mg PO BID #60 tab 03/08/18 loratadine 10 mg capsule 10 mg PO QDAY #30 cap 03/08/18 The following prescriptions were given: Metoprolol Tartrate [Lopressor (beta nubia)] 50 mg PO BID #60 tab Primary Care Physician: John Castillo MD [Primary Care Provider] - Please follow up with your Primary Care Physician in: in 3 weeks Test Results: Test results from this visit will be discussed in further detail at your follow-up appointment, if applicable. 03/08/18 1217 <Electronically signed by Lonnie Jimenez DO> Date Lonnie Jimenez DO CC: Osmin Castillo MD; Maximus Foster MD BEDSIDE GLUCOSE Collected: 03/08/2018 Status: F Source: [place] 11:02 AM [facility] REPOSITORY TYPE CODE TESTS RESULT OUT OF REFERENCE UNITS RANGE LAB L501.080 70-110 mg/dL High BEDSIDE GLU 165 Result Comment: MANAGEMENT OF PATIENT CARE PER NURSING PROTOCOL Performed By: #### L501.080 #### [facility] Laboratory Point of Care [address] [facility] [place] [address] BEDSIDE GLUCOSE Collected: 03/08/2018 Status: F Source: [place] 6:56 AM [facility] REPOSITORY TYPE CODE TESTS RESULT OUT OF REFERENCE UNITS RANGE LAB L501.080 70-110 mg/dL High BEDSIDE GLU 126 Result Comment: MANAGEMENT OF PATIENT CARE PER NURSING PROTOCOL Performed By: #### L501.080 #### [facility] Laboratory Point of Care [address] [facility] [place] [address] URINALYSIS, COMPLETE Collected: 03/08/2018 Status: F Source: [place] 5:40 AM [facility] REPOSITORY Order Comment: How was Urine Obtained? CLEAN CATCH TYPE CODE TESTS RESULT OUT OF RANGE REFERENCE UNITS LAB L400.3000 Yellow COLOR Normal Yellow LAB L400.3050 Clear Normal CLARITY Cloudy LAB L400.3200 Normal mg/dl Normal GLUCOSE, UR Normal LAB L400.3300 Negative mg/dL Normal BILIRUBIN URINE Negative LAB L400.3400 Negative mg/dl Normal KETONE UR Negative LAB L400.3465 1.002-1.030 Normal SP.GR. DIPSTX 1.025 LAB L400.3550 5.0 - 8.0 pH UR Normal 5.0 LAB L400.3600 Negative mg/dl High PROT DIPSTX 100 LAB L400.3700 Normal mg/dl Normal UROBILI Normal LAB L400.3750 Negative Normal NITRITE UR Negative LAB L400.3780 Negative /ul High 25 OCCULT BLOOD-UR LAB L400.3800 Negative /ul High LEUK ESTERASE 100 LAB L400.4050 0-5 /hpf WBC Normal 5-10 SEEN LAB L400.4100 0-5 /hpf Normal RBC-UA 0-5 SEEN LAB L400.4150 5-10 /hpf SQUAM Normal EPI 5-10 SEEN LAB L400.4300 None Seen /hpf 2+ Normal BACTERIA LAB L400.4350 <or=2+ /hpf 0 Normal MUCUS, URINE SEEN LAB L400.5200 None Seen /hpf 3+ Normal YEAST-URINE Performed By: #### L400.0001 #### [facility] [address] [facility] [place], [place], [address] HH, HEMOGLOBIN AND Collected: 03/08/2018 Status: F Source: [place] HEMATOCRIT 5:05 AM [facility] REPOSITORY TYPE CODE TESTS RESULT OUT OF RANGE REFERENCE UNITS LAB L100.1300 12.0-15.0 g/dl Low HGB 8.5 LAB L100.1400 37-47 % Low HCT 28.1 Performed By: #### L100.0600 #### [facility] [address] [place], [place], [address] BASIC METABOLIC Collected: 03/08/2018 Status: F Source: [place] PROFILE (BMP) 5:05 AM [facility] REPOSITORY TYPE CODE TESTS RESULT OUT OF RANGE REFERENCE UNITS LAB L501.0100 74-106 mg/dL High GLU 140 Result Comment: Fasting Glucose result greater than or equal to 126 mg/dL suggests DIABETES MELLITUS per A.D.A. criteria. Please note revised GLUCOSE reference range effective 2017. LAB L501.1000 7-18 mg/dL High BUN 33 LAB L501.1100 0.55-1.02 mg/dL High CREAT,SERUM 1.27 Result Comment: The validity of the calculated GFR AND GFRAA in patients over 70 years has not been determined. Clinical correlation is essential. LAB L501.1110 >60 mL/min Low EST GFR 47 Result Comment: Non- GFR Calc LAB L501.1115 >60 mL/min Low EST GFR - AA 57 Result Comment: GFR Calc LAB L501.1255 ml/min Normal Estimated CRCL 47.16 LAB L501.1300 10-20 RATIO High BUN/CRE 26.0 LAB L501.2200 8.5-10 mg/dL Low .1 CA 7.9 LAB L501.5300 136-14 mmol/L Normal 5 NA 145 LAB L501.5600 3.5-5. mmol/L Normal 1 K 4.6 LAB L501.5900 98-107 mmol/L High CL 115 LAB L501.6100 21.0-3 mmol/L Normal 2.0 CO2 24.0 LAB L501.6200 5-15 Normal GAP 6 Performed By: #### L500.2500 #### [facility] [address] [place], [address] Observed: 03/08/2018 Status: F Source: [place] CULTURE, URINE 5:00 AM [facility] REPOSITORY Urine Culture #1 Below infection level. ORGANISM 1: Presumptive E. coli [place] Count <1000 MIX CULTURE Mixed contaminants. Submit a new specimen if indicated. ORGANISM 2: Mixed Gram Positive Organisms [place] Count >100,000 MIX CULTURE Mixed contaminants. Submit a new specimen if indicated. Performed By: #### M100.0650 #### [facility] Laboratory [address] [place], [address] BEDSIDE GLUCOSE Collected: 03/07/2018 Status: F Source: [place] 9:11 PM [facility] REPOSITORY TYPE CODE TESTS RESULT OUT OF REFERENCE UNITS RANGE LAB L501.080 70-110 mg/dL High BEDSIDE GLU 167 Result Comment: Insulin Given MANAGEMENT OF PATIENT CARE PER NURSING PROTOCOL Performed By: #### L501.080 #### [facility] Laboratory Point of Care [address] [place] [address] BEDSIDE GLUCOSE Collected: 03/07/2018 Status: F Source: [place] 4:47 PM [facility] REPOSITORY TYPE CODE TESTS RESULT OUT OF REFERENCE UNITS RANGE LAB L501.080 70-110 mg/dL High BEDSIDE GLU 139 Result Comment: MANAGEMENT OF PATIENT CARE PER NURSING PROTOCOL Performed By: #### L501.080 #### [facility] Laboratory Point of Care [address] [place] [address] ECHOCARDIOGRAM COMPLETE Observed: 03/07/2018 Status: F Source: [place] 3:12 PM [facility] REPOSITORY [facility] Cardiovascular Services [address] [place] [address] Echo Complete 03/07/18 1322 MR#: [id number] Acct: [id number] Name: WAGNERLORI M Rep #: [id number] : 1965 52 From: Reji Gu MD Attending Dr: Lonnie Jimenez DO Status: ADM IN Ordering Dr: Jeovanny Nicolas DO Date: 03/07/18 Location: PCU Sex: F C Admitted: 03/06/18 Reason For Study: TIA/CVA Procedure This was a 2D Doppler, Color Flow transthoracic echocardiogram. Exam performed portable in patient room. Left Ventricle Normal size and thickness. The estimated ejection fraction is 65 %. Stage 1 diastolic dysfunction. No regional wall motion abnormalities noted. Right Ventricle Mildly dilated right ventricle. Normal systolic function. Atria Normal left atrium. Normal right atrium. Normal atrial septum. Bubble contrast study negative for right to left interatrial shunt. Mitral Valve The mitral valve is structurally normal. No prolapse or stenosis seen. Trivial eccentric mitral valve insufficiency. Tricuspid Valve Normal tricuspid valve. Trivial tricuspid valve insufficiency. Right ventricular systolic pressure estimated to be 39 mmHg. Mild pulmonary hypertension. Aortic Valve Normal aortic valve. Trisinus/trileaflet aortic valve. Pulmonic Valve The pulmonic valve is not well visualized. Great Vessels Normal aortic root. Normal arch. Normal inferior vena cava. Inferior vena cava collapse with sniff. Pericardium/Pleural Trivial pericardial effusion. There are no echocardiographic indications of cardiac tamponade. Medication Performed a rapid injection of agitated mix of 9 cc saline and 1cc air to assess for atrial septal defect. MMode/2D Measurements AND Calculations LVIDd: 4.5 cm IVSd: 1.2 cm Ao root diam: 3.0 cm LVIDs: 2.7 cm LVPWd: 1.5 cm RVDd: 3.9 cm FS: 39.4 % LAV(MOD-bp): 50.5 ml EDV(MOD-sp4): 119.2 ml EDV(MOD-sp2): 108.3 ml LAV(MOD-bp) Indexed: 23.1 ml/m2 ESV(MOD-sp4): 41.9 ml EF(MOD-sp2): 55.8 % LAV(MOD-sp2): 48.7 ml EF(MOD-sp4): 64.8 % LAV(MOD-sp4): 51.9 ml SV(MOD-sp4): 77.3 ml SV(MOD-sp2): 60.4 ml LA A4 area: 19.2 cm2 LA dimension(2D): 4.4 cm RA A4 area: 19.1 cm2 Doppler Measurements AND Calculations MV E max nhi: 110.4 cm/sec Lat Peak E' Nhi: 7.5 cm/sec Med Peak E' Nhi: 5.0 cm/sec MV A max nhi: 132.1 cm/sec E/E' lat: 14.7 E/E' med: 21.9 MV E/A: 0.84 Ao V2 max: 158.4 cm/sec LV V1 max: 120.2 cm/sec PA V2 max: 104.7 cm/sec Ao max P.0 mmHg LV V1 max P.8 mmHg TR max nhi: 286.9 cm/sec TR max P.0 mmHg Interpretation Summary The estimated ejection fraction is 65 %. Stage 1 diastolic dysfunction. Mildly dilated right ventricle. Bubble contrast study negative for right to left interatrial shunt. Trivial eccentric mitral valve insufficiency. Trivial tricuspid valve insufficiency. Right ventricular systolic pressure estimated to be 39 mmHg. Trivial to smal posterior pericardial effusion. There are no echocardiographic indications of cardiac tamponade. Compared to echo report dated 03/17/2017, no appreciable changes noted. Small pericardial effusion noted at that time. Ordering Physician: Berta Nicolas Referring Physician: Osmin Castillo MD Performed By: Elizabeth Garber RDCS 03/07/18 1511 Date Reji Gu MD CC: Berta Nicolas; Osmin Castillo MD; Lonnie Jimenez DO Date Dictated: 03/07/18 1322 Date Transcribed: 03/07/18 1511 Hairmasters Manager: Signed BEDSIDE GLUCOSE Collected: 03/07/2018 Status: F Source: [place] 11:23 AM [facility] REPOSITORY TYPE CODE TESTS RESULT OUT OF REFERENCE UNITS RANGE LAB L501.080 70-110 mg/dL High BEDSIDE GLU 147 Result Comment: MANAGEMENT OF PATIENT CARE PER NURSING PROTOCOL Performed By: #### L501.080 #### [facility] Point of Care [address] [place] [address] BEDSIDE GLUCOSE Collected: 03/07/2018 Status: F Source: [place] 6:33 AM [facility] REPOSITORY TYPE CODE TESTS RESULT OUT OF REFERENCE UNITS RANGE LAB L501.080 70-110 mg/dL High BEDSIDE GLU 200 Result Comment: MANAGEMENT OF PATIENT CARE PER NURSING PROTOCOL Performed By: #### L501.080 #### [facility] Laboratory Point of Care [address] [place] [address] CBC W/DIFF, AUTOMATED Collected: 03/07/2018 Status: F Source: [place] 4:46 AM [facility] REPOSITORY TYPE CODE TESTS RESULT OUT OF RANGE REFERENCE UNITS LAB L100.1000 4.4-11.0 K/mm3 High WBC 11.9 LAB L100.1200 4.2-5.4 M/mm3 Low RBC 3.46 LAB L100.1300 12.0-15.0 g/dl Low HGB 9.8 LAB L100.1400 37-47 % Low HCT 31.7 LAB L100.1500 81-99 fL Normal MCV 91.6 LAB L100.1600 27.0-32.0 pg Normal MCH 28.3 LAB L100.1700 32-36 g/gl Low MCHC 30.9 LAB L100.1810 11.6-14.6 % Normal RDW CV 13.8 LAB L100.1820 35.1-43.9 fl High RDW SD 45.1 LAB L100.1900 150-450 K/mm3 Normal PLT 237 LAB L100.2000 6.2-12.0 fl Normal MPV 11.3 LAB L100.2100 47-70 % High NEUT% 83.9 LAB L100.2200 19-41 % Low LY% 11.7 LAB L100.2300 0-10 % Normal MONO% 3.6 LAB L100.2400 0-5 % Normal EO% 0.2 LAB L100.2500 0-1 % Normal BASO% 0.3 LAB L100.2550 0.0-0.9 % Normal IM GRAN % 0.300 Result Comment: IG% - Immature Granulocytes (promyelocytes, myelocytes and metamyelocytes) > 1% indicates that a LEFT SHIFT is Present. LAB L100.2620 2.0-7.7 X10 3/uL High Absolute Neut 10.0 LAB L100.2720 0.83-4.51 X10 3/ul Normal Absolute Lymph 1.39 Performed By: #### L100.0100 #### [facility] [address] [facility] [place], [place], [id number] COMPREHENSIVE METABOLIC Collected: 03/07/2018 Status: F Source: [place]AY 4:46 AM [facility] REPOSITORY Order Comment: 'TROP' Serial specimen #1, #2 or #3: 3 'TROP' Serial specimen #1, #2, #3, or #4: 3 TYPE CODE TESTS RESULT OUT OF RANGE REFERENCE UNITS LAB L501.0100 74-106 mg/dL High GLU 251 Result Comment: Glucose result greater than or equal to 200 mg/dL suggests DIABETES MELLITUS per A.D.A. criteria. Please note revised GLUCOSE reference range effective 2017. LAB L501.1000 7-18 mg/dL High BUN 38 LAB L501.1100 0.55-1.02 mg/dL High CREAT,SERUM 1.69 Result Comment: The validity of the calculated GFR AND GFRAA in patients over 70 years has not been determined. Clinical correlation is essential. LAB L501.1110 >60 mL/min Low EST GFR 34 Result Comment: Non- GFR Calc LAB L501.1115 >60 mL/min Low EST GFR - AA 41 Result Comment: GFR Calc LAB L501.1255 ml/min Normal Estimated CRCL 35.44 LAB L501.1300 10-20 RATIO High BUN/CRE 22.5 LAB L501.1500 6.4-8. g/dL Normal 2 T PROT 6.5 LAB L501.1800 3.2-5. g/dL Low 0 ALB 2.5 LAB L501.1950 2.2-4. g/dL Normal 2 GLOB 4.0 LAB L501.2000 0.9-2. RATIO Low 4 A/G 0.6 LAB L501.2200 8.5-10 mg/dL Low .1 CA 7.9 LAB L501.4100 15-37 U/L Normal AST 20 LAB L501.4305 45-117 U/L Normal ALK P 93 LAB L501.4405 13-56 U/L Normal ALT 17 LAB L501.4600 0.20-1 mg/dL Low .00 T BILI 0.10 LAB L501.5300 136-14 mmol/L Normal 5 NA 145 LAB L501.5600 3.5-5. mmol/L Normal 1 K 4.9 LAB L501.5900 98-107 mmol/L High CL 113 LAB L501.6100 21.0-3 mmol/L Normal 2.0 CO2 23.0 LAB L501.6200 5-15 Normal GAP 9 Performed By: #### L500.4050, L500.4100, L501.2300, L501.4010, L501.5200 #### [facility] [address] [place], [place], [id number] LIPID PROFILE Collected: 03/07/2018 Status: F Source: [place] 4:46 AM [facility] REPOSITORY Order Comment: 'TROP' Serial specimen #1, #2 or #3: 3 'TROP' Serial specimen #1, #2, #3, or #4: 3 TYPE CODE TESTS RESULT OUT OF RANGE REFERENCE UNITS LAB L501.4900 200 mg/dL Normal CHOL 148 Result Comment: <200 mg/dL Desirable 200-240 mg/dL Borderline >240 mg/dL High Risk LAB L501.5000 mg/dL Normal TRIG 77 Result Comment: The drugs N-Acetylcysteine and Metamizole may falsely depress this assay. Serum Triglycerides Reference Interval Normal <150 mg/dL Borderline high 150 - 199 mg/dL High 200 - 499 mg/dL Very High > or = 500 mg/dL LAB L501.6400 mg/dL Normal HDL 46 Result Comment: The drugs N-Acetylcysteine and Metamizole may falsely depress this assay. Reference Range HDL <40 mg/dL Low HDL Cholesterol HDL >or= 60 mg/dL High HDL Cholesterol LAB L501.6500 0-130 mg/dL Normal LDL 87 LAB L501.6600 5-40 mg/dL Normal VLDL 15 Performed By: #### L500.4050, L500.4100, L501.2300, L501.4010, L501.5200 #### [facility] [address] [place], [place], [id number] PHOSPHORUS Collected: 03/07/2018 Status: F Source: [place] 4:46 AM [facility] REPOSITORY Order Comment: 'TROP' Serial specimen #1, #2 or #3: 3 'TROP' Serial specimen #1, #2, #3, or #4: 3 TYPE CODE TESTS RESULT OUT OF RANGE REFERENCE UNITS LAB L501.2300 2.5-4.9 mg/dL Normal PHOS 4.4 Performed By: #### L500.4050, L500.4100, L501.2300, L501.4010, L501.5200 #### [facility] [address] [place], [place], [id number] TROPONIN-I Collected: 03/07/2018 Status: F Source: [place] 4:46 AM [facility] REPOSITORY Order Comment: 'TROP' Serial specimen #1, #2 or #3: 3 'TROP' Serial specimen #1, #2, #3, or #4: 3 TYPE CODE TESTS RESULT OUT OF RANGE REFERENCE UNITS LAB L501.4010 <0.045 ng/mL Normal < 0.015 TROPONIN-I Result Comment: TROPONIN-I EXPECTED VALUES <0.045 Negative 0.045 - 0.590 Consistent with Cardiac Damage > OR = 0.600 Critical Value Not every elevated troponin is indicative of ID. These values should be used with clinical judgement in examining the patient's clinical picture for diagnosis. To establish a diagnosis of ID versus myocardial injury, there must be a demonstrated rise and/or fall in the troponin values, in addition to ischemic symptoms, EKG changes, new regional wall motion abnormality, and/or angiographical evidence. PLEASE NOTE: REFERENCE RANGES EDITED 17 Performed By: #### L500.4050, L500.4100, L501.2300, L501.4010, L501.5200 #### [facility] [address] [place], [place], [id number] MAGNESIUM Collected: 03/07/2018 Status: F Source: [place] 4:46 AM [facility] REPOSITORY Order Comment: 'TROP' Serial specimen #1, #2 or #3: 3 'TROP' Serial specimen #1, #2, #3, or #4: 3 TYPE CODE TESTS RESULT OUT OF RANGE REFERENCE UNITS LAB L501.5200 1.6-2.6 mg/dL Normal MG 1.7 Performed By: #### L500.4050, L500.4100, L501.2300, L501.4010, L501.5200 #### [facility] [address] [place], [address] BRAIN WITHOUT Observed: 03/07/2018 Status: F Source: [place] CONTRAST 2:57 AM [facility] REPOSITORY [facility] Imaging [place] [address] Brain without Contrast MR#: [id number] Acct: [id number] Name: LORI EDWARD Rep #: [id number] : 1965 F 52 From: Landry Yoder MD PCP: Osmin Castillo MD Status: ADM IN Study: Brain without Contrast Date of Exam: 03/07/18 Exam# [id number] Ordering Dr: Jeovanny Nicolas DO STUDY: MRI BRAIN WITHOUT CONTRAST REASON FOR EXAM: Female, 52 years old. Headache, confusion, slurred speech since yesterday TECHNIQUE: Standardized multiplanar fat and water weighted pulse sequences were obtained. COMPARISON: CT 03/06/2018 FINDINGS: Normal size of the ventricles and extra-axial spaces for the patient's age. Normal white matter tracts of the supratentorial brain. Normal bilateral basal ganglia. Normal thalami. There is no extra-axial fluid accumulation. Normal flow voids within the major intracranial circulation suggesting patency by spin echo criteria. Normal sella turcica, pituitary gland, infundibular stalk, optic chiasm and hypothalamus. Normal tectal plate and pineal gland. A faint region of T2 hyperintensity is present in the central [place] without associated restricted diffusion or mass effect. This may be related to remote ischemia or microangiopathy. Nonacute central pontine myelinolysis is not entirely excluded. Normal cerebellum. Normal basal cisterns. Normal bilateral temporal bones. Normal bilateral internal auditory canals. No demonstrated orbital abnormality, within the constraints of a routine brain study. Normal visualized paranasal sinuses. Bilateral mastoid sinus disease. Normal visualized soft tissue structures. Normal visualized upper cervical spine. MRI/Brain without Contrast IMPRESSION: Abnormal signal in the [place] as described. Differential includes remote ischemia, sequelae of microangiopathy, and changes of nonacute central pontine myelinolysis. No evidence of acute infarct or hemorrhage. Electronically Signed: Landry Yoder MD at 10:26 EST Tel , Service support , CC: Berta Nicolas; Osmin Castillo MD [employer] Manager: Signed MRA NECK WITHOUT Observed: 03/07/2018 Status: F Source: [place] CONTRAST 2:57 AM [facility] REPOSITORY [facility] Imaging Services [address] [place] [address] MRA Neck without Contrast MR#: [id number] Acct: [id number] Name: LORI EDWARD Rep #: [id number] : 1965 F 52 From: Landry Yoder MD PCP: Omsin Castillo MD Status: ADM IN Study: MRA Neck without Contrast Date of Exam: 03/07/18 Exam# [id number] Ordering Dr: Jeovanny Nicolas DO STUDY: MRA NECK WITHOUT CONTRAST REASON FOR EXAM: Female, 52 years old. Headache, confusion, slurred speech since yesterday TECHNIQUE: Source images were obtained, MIPs were performed. The study was performed unenhanced. COMPARISON: None. FINDINGS: RIGHT CAROTID ARTERIES: Normal right common carotid artery (CCA). Normal right common carotid bulb. Normal origin of the right internal carotid (ICA) artery without a hemodynamically significant stenosis. Normal visualized cervical portion of the right internal carotid artery. Normal origin of the right external carotid artery (ECA). LEFT CAROTID ARTERIES: Normal left common carotid artery (CCA). Normal left common carotid bulb. Normal origin of the left internal carotid (ICA) artery without a hemodynamically significant stenosis. Normal visualized cervical portion of the left internal carotid artery. Normal origin of the left external carotid artery (ECA). VERTEBRAL ARTERIES: Normal antegrade flow within the bilateral vertebral artery without a hemodynamically significant stenosis. MRI/MRA Neck without Contrast IMPRESSION: Normal bilateral cervical carotid and vertebral arteries. Electronically Signed: Landry Yoder MD at 10:30 EST Tel , Service support , CC: Berta Nicolas; Osmin Castillo MD [employer] Manager: Signed MRA HEAD ONLY WITHOUT Observed: 03/07/2018 Status: F Source: [place] CONTRAST 2:57 AM [facility] REPOSITORY [facility] Imaging Services [address] [place] [address] MRA Head ONLY without Contrast MR#: [id number] Acct: [id number] Name: LORI EDWARD Rep #: [id number] : 1965 F 52 From: Crescencio Buenrostro MD PCP: Osmin Castillo MD Status: ADM IN Study: MRA Head ONLY without Contrast Date of Exam: 03/07/18 Exam# [id number] Ordering Dr: Jeovanny Nicolas DO STUDY: MRA OF THE HEAD WITHOUT CONTRAST REASON FOR EXAM: Female, 52 years old. Headache, confusion and slurred speech since yesterday. TECHNIQUE: 3-D rijd-ht-girakf (TOF) imaging was performed with MIPs. The study was performed unenhanced. COMPARISON: None. FINDINGS: Normal bilateral petrous carotid arteries. Normal right cavernous carotid artery with a normal supraclinoid bifurcation. Normal left cavernous carotid artery with a normal supraclinoid bifurcation. Normal right A1 segment of the anterior cerebral artery. Normal left A1 segment of the anterior cerebral artery. Normal intact anterior communicating artery (ACOM). Normal bilateral A2 segments of the anterior cerebral arteries. Normal right M1 and M2 segments of the middle cerebral arteries, with a normal M1 bifurcation. Normal left M1 and M2 segments of the middle cerebral arteries, with a normal M1 bifurcation. Normal right posterior communicating artery (PCOM). Normal left posterior communicating artery (PCOM). Normal bilateral vertebral arteries. Normal basilar artery with a normal basilar bifurcation. The visualized bilateral superior cerebellar (SCA) arteries are normal. Normal bilateral P1, P2 and visualized P3 segments of the posterior cerebral arteries. There is no demonstrated aneurysm of the [place]. There is no major vessel occlusion or hemodynamically significant stenosis. There is no demonstrated abnormality of the visualized brain. MRI/MRA Head ONLY without Contrast IMPRESSION: Normal MRA of the head Electronically Signed: Crescencio Buenrostro MD at 11:01 EST , Service support , CC: Berta Nicolas; Osmin Castillo MD [employer] Manager: Signed HISTORY AND PHYSICAL Observed: 03/07/2018 Status: F Source: [place] EXAM 2:56 AM [facility] REPOSITORY [facility] Medical Records Department [address] [place] [address] History and Physical 03/07/18 0108 MR#: [id number] Acct: [id number] Name: LORI EDWARD Jeovanny Rep #: [id number] : 1965 52 From: Jeovanny Nicolas DO PCP: Osmin Castillo MD Status: ADM IN Y Location: [place] [address] Problem List (1) Hypertensive urgency Status: Acute (2) Dehydration Status: Acute (3) SOB (shortness of breath) on exertion Status: Chronic (4) DARCY (obstructive sleep apnea) Status: Chronic Comment: CPAP 12 cm of water (5) Amputated toe Status: Resolved (6) H/O: hysterectomy Status: Resolved (7) Iron deficiency anemia Status: Chronic (8) Diarrhea in adult patient Status: Resolved Comment: chronic intermittent diarrhea- etiology unknown (9) Gait instability Status: Chronic (10) Diabetic foot ulcer Status: Resolved Qualifiers: Diabetes mellitus type: type 2 Laterality: left Qualified Code(s): E11.621 - Type 2 diabetes mellitus with foot ulcer; L97.529 - Non-pressure chronic ulcer of other part of left foot with unspecified severity (11) Venous insufficiency Status: Chronic (12) History of amputation of hallux Status: Chronic (13) GERD (gastroesophageal reflux disease) Status: Chronic Qualifiers: Esophagitis presence: esophagitis presence not specified Qualified Code(s): K21.9 - Gastro-esophageal reflux disease without esophagitis (14) Hypertension Status: Chronic Qualifiers: Hypertension type: essential hypertension Qualified Code(s): I10 - Essential (primary) hypertension (15) Delayed wound healing Status: Resolved (16) Edema of left lower extremity Status: Resolved (17) MRSA (methicillin resistant staph aureus) culture positive Status: Chronic Comment: left great toe (18) Chronic ulcer of left foot with necrosis of muscle Status: Resolved (19) Osteomyelitis of ankle or foot Status: Resolved Comment: left great toe (20) Malnutrition Status: Resolved (21) Diabetes mellitus with polyneuropathy Status: Chronic Qualifiers: Diabetes mellitus type: type 2 (22) Vaginal candidiasis Status: Resolved (23) Diabetes mellitus type 2, uncontrolled Status: Chronic (24) Chronic ulcer of right great toe with fat layer exposed Status: Resolved (25) Diabetic ulcer of left great toe Status: Resolved Comment: with osteomylitis of left great toe (26) Puncture wound of toe of left foot Status: Resolved Qualifiers: Encounter type: subsequent encounter Qualified Code(s): S91.139D - Puncture wound without foreign body of unspecified toe(s) without damage to nail, subsequent encounter (27) Cellulitis of toe of left foot Status: Resolved History of Present Illness Date of Admission: 03/07/18 Chief Complaint: RENTERIA The patient is a 52 year old F with a past medical history of GERD, diabetes mellitus type 2, hypertension, morbid obesity, diabetic peripheral polyneuropathy and multiple diabetic foot wounds who presented to the emergency department at [facility] on 03/06/2018 complaining of a severe headache. The headache was associated with nausea and started at approximately 3 PM. The RENTERIA started in the left eye and left face and did not generalize. She can not recall if she had any visual disturbances. She was noted to have slurred speech and confusion by the paramedics. She has recently had surgery on her left leg for a tibia fracture and is in a posterior splint. She denied fever, chills, chest pain, shortness of breath, vomiting, abdominal pain. There is mention in the ER physician's note of decreased sensation on the left side and some slurred speech. Vital signs at presentation to the emergency room were temp 97 F, pulse rate 97, blood pressure 196/117, respiratory rate 18 and she was 93-97% saturated on room air. White blood cell count was 9.0 with 75% neutrophils. Hemoglobin was 10.8 which is within her baseline. Platelets were normal. Electrolytes were unremarkable and the BUN was 33 with a creatinine of 1.25. Creatinine in May [address] of the head was normal. Chest x-ray showed no infiltrates, pulmonary vascular congestion or pleural effusions. She received 10 mg of IV labetalol in the emergency room and her blood pressure dropped to 141/79. She recently had surgery and her father . Admits to being under increased stress recently. She denies any hx of migraines - personal. Her dtr gets RENTERIA's with her periods. Past Medical History Past Medical History (Chronic Problems): Chronic Problems (Last Reviewed 03/07/18 @ 01:15 by Jeovanny Nicolas DO) SOB (shortness of breath) on exertion (Chronic) DARCY (obstructive sleep apnea) (Chronic) CPAP 12 cm of water Iron deficiency anemia (Chronic) Gait instability (Chronic) Venous insufficiency (Chronic) History of amputation of hallux (Chronic) GERD (gastroesophageal reflux disease) (Chronic) Hypertension (Chronic) MRSA (methicillin resistant staph aureus) culture positive (Chronic) left great toe Diabetes mellitus with polyneuropathy (Chronic) Diabetic neuropathy (Chronic) Diabetes mellitus type 2, uncontrolled (Chronic) Medical History: Medical History (Last Reviewed 03/07/18 @ 01:15 by Jeovanny Nicolas DO) H/O: hysterectomy (Resolved) Z98.890, Z90.710 Iron deficiency anemia (Acute) D50.9 Diarrhea in adult patient (Chronic) R19.7 chronic intermittent diarrhea-etiology unknown Gait instability (Acute) R26.81 Diabetic foot ulcer (Chronic) E11.621, L97.509 Venous insufficiency (Acute) History of amputation of hallux (Acute) Z89.419 GERD (gastroesophageal reflux disease) (Chronic) K21.9 Hypertension (Chronic) I10 Delayed wound healing (Acute) T14.8 Edema of left lower extremity (Chronic) R60.0 MRSA (methicillin resistant staph aureus) culture positive (Chronic) Z22.322 left great toe 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) L97.523 Osteomyelitis of ankle or foot (Chronic) M86.9 left great toe Malnutrition (Chronic) E46 Diabetes mellitus with polyneuropathy (Chronic) E11.42 Vaginal candidiasis (Acute) B37.3 Diabetic neuropathy (Chronic) E11.40 Diabetes mellitus type 2, uncontrolled (Chronic) E11.65 Chronic ulcer of right great toe with fat layer exposed (Chronic) L97.512 Diabetic ulcer of left great toe (Chronic) E11.621, L97.529 with osteomylitis of left great toe Puncture wound of toe of left foot (Chronic) S91.139A Cellulitis of toe of left foot (Acute) L03.032 Allergies Latex, Natural Rubber Allergy (Verified 03/06/18 21:46) Rash Penicillins Allergy (Verified 03/06/18 21:46) Swelling lactose Adverse Reaction (Verified 03/06/18 21:46) Diarrhea Home Medications: Ambulatory Orders Medication Instructions Recorded albuterol sulfate HFA 90 2 puff INHALATION Q4H PRN g 04/11/17 mcg/actuation aerosol inhaler Alogliptin Benzoate [Alogliptin] 25 mg PO DAILY 05/28/17 Basaglar Kwikpen U-100 46 unit SQ QHS 05/28/17 Surgical History: Surgical History (Last Reviewed 03/07/18 @ 01:15 by Jeovanny Nicolas DO) Amputated toe (Resolved) Z89.429 Surgical History: hysterectomy, - - 2 c/s Psychiatric History: No pertinent psych hx 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 Denies: Difficulty Hearing, Difficulty Swallowing, Head Aches, Sinus Congestion, Sinus Drainage, Sore Throat Cardiovascular: Denies: Chest Pain, Edema, Heaviness, Light Headedness, Palpitations Respiratory: Denies: Cough, Shortness of breath at rest, Sputum production Gastrointestinal: Reports: Nausea - with the RENTERIA. Denies: Abdominal Pain, Vomiting Genitourinary: Denies: Dysuria Gynecological: Denies: Breast symptoms, Vaginal discharge Musculoskeletal: Reports: Leg Pain - left. Denies: Joint Pain, Joint Tenderness Skin: Denies: Rash, Wounds Neurological: Denies: Numbness, Tingling, Focal weakness Psychiatric: Denies: Anxiety, Depression, Homicidal Ideations, Suicidal Ideations Hematologic/ Lymphatic: Denies: Easy Bruising, Easy Bleeding VTE Information - Inpt Only VTE Present on Admission: No VTE Mechan Device Prophylaxis: SCD's VTE Pharm Prophylaxis ordered?: Yes Patient Problems: Active and Suspected Problems (Last Reviewed 03/07/18 @ 01:15 by Jeovanny Nicolas DO) Hypertensive urgency (Acute) Dehydration (Acute) - Physical Exam General: Alert, Oriented x3, Cooperative, No apparent distress, Well developed, Well nourished HEENT: Atraumatic, PERRLA, EOMI, Normocephalic Oral: Dry Mucosa Neck: Supple, No JVD, Trachea Midline, Carotid Bruit, Right Lungs: Clear to auscultation, Normal air movement, No rhonchi, No wheeze, No rales Cardiovascular: Regular rate, Regular Rhythm, Normal S1, Normal S2, No murmurs, No Ectopic Activity, No rub noted, No Gallop Abdomen: Bowel Sounds Present, Soft, Non Tender Extremities: No clubbing, No cyanosis, No edema, No Calf Tenderness, - - the left leg is in a posterior splint and wrapped with CHERRY. she has intact sensation of the toes Skin: No rashes, No breakdown Musculoskeletal: No Muscle Wasting Neurological: Cranial nerves II-XII grossly intact, Neuro grossly intact, Motor Exam 5/5 strength throughout Psych/Mental Status: Normal Affect, Appropriate Vital Signs Temp Pulse Resp BP Pulse Ox 98.5 F 102 H 16 219/88 H 96 03/07/18 01:01 03/07/18 01:01 03/07/18 01:01 03/07/18 01:02 03/07/18 01:01 Oxygen Delivery Method Room Air Weight: 253 lb 4.978 oz Body Mass Index (BMI) 41.5 Finger Stick Blood Glucose 156 Laboratory Tests Past 24 Hrs WBC 9.0 RBC 3.92 L WBC RBC Hgb Hct MCV MCH MCHC RDW RDW Differential Plt Count MPV Immature Gran % (Auto) Neut % (Auto) POC Glucose POC Glucose 156 H Assessment/Plan All Active Problems (Last Reviewed 03/07/18 @ 01:15 by Jeovanny Nicolas DO) Hypertensive urgency (Acute) Dehydration (Acute) Amputated toe (Resolved) H/O: hysterectomy (Resolved) Diarrhea in adult patient (Resolved) Diabetic foot ulcer (Resolved) Delayed wound healing (Resolved) Edema of left lower extremity (Resolved) 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 Impressions 1. hypertensive urgency with cephalgia and altered mental status 2. DM II 3. HTN 4. dehydration 5. anemia 6. GERD 7. Asthma 8. R carotid bruit RENTERIA resolved after 0.5 mg Dilaudid Neuro exam is currently non-focal Will get an MRI in the AM and MRA of the head and neck Consult neurology in the AM Hydrate Recheck lab in the AM Check a HGBA1C - she usually only checks her BS in the AM stroke protocol initiated ASA 325 mg now and then 81 mg daily DVT prophylaxis with Lovenox and SCD's PT,OT and ST consults ordered Code Visit Inpatient E AND M: 10445 Init Hosp L3 03/07/18 0256 <Electronically signed by Jeovanny Nicolas DO> Date Jeovanny Nicolas DO Cosigner Signature: Date (if applicable) CC: Berta Nicolas; Osmin Castillo MD Signed TROPONIN-I Collected: 03/07/2018 Status: F Source: [place] 1:50 AM [facility] REPOSITORY Order Comment: 'TROP' Serial specimen #1, #2 or #3: 2 RESULT(S) PREVIOUSLY REPORTED ON MANUAL REQUISITION DURING DOWNTIME. TYPE CODE TESTS RESULT OUT OF RANGE REFERENCE UNITS LAB L501.4010 <0.045 ng/mL Normal < 0.015 TROPONIN-I Result Comment: TROPONIN-I EXPECTED VALUES <0.045 Negative 0.045 - 0.590 Consistent with Cardiac Damage > OR = 0.600 Critical Value Not every elevated troponin is indicative of ID. These values should be used with clinical judgement in examining the patient's clinical picture for diagnosis. To establish a diagnosis of ID versus myocardial injury, there must be a demonstrated rise and/or fall in the troponin values, in addition to ischemic symptoms, EKG changes, new regional wall motion abnormality, and/or angiographical evidence. PLEASE NOTE: REFERENCE RANGES EDITED 17 Performed By: #### L501.4010 #### [facility] Laboratory [address] [place], [address] EMERGENCY DEPARTMENT Observed: 03/06/2018 Status: F Source: [place] SUMMARY 10:54 PM [facility] REPOSITORY [facility] Medical Records Department [address] [place] [address] Emergency Department Summary 03/06/18 2233 MR#: [id number] Acct: [id number] Name: LORI EDWARD Rep #: [id number] : 1965 52 From: Haja Muñoz MD PCP: Osmin Castillo MD Status: REG ER - ER Visit Summary Date of Service: 03/06/18 Chief Complaint: Bad headache and high blood pressure History of Present Illness: The patient is a 52 F who arrived by ambulance because of severe headache, elevated blood pressure with systolic of 228, slurred speech. Onset is unknown. She does report history of diabetes and hypertension. She had recent surgery left tibia and is in a posterior splint. She does report trouble with vision. She denies ringing or ears or decreased hearing. She denies neck pain or neck stiffness. She denies chest pain, back pain shortness of breath, orthopnea or PND. She does report nausea without vomiting diarrhea. She denies dysuria, frequency, urgency hematuria. She denies tingling but reports that she has greater sensation on the right. Past medical history diabetes and hypertension. Arranging. Allergies noted. She apparently lives alone. Physical Examination: Initial blood pressure in the emergency room was 211/119. She is not alert. She stated the month was February. She reports altered sensation on the left and has inattention to the left. She also had difficulty recognizing objects and trouble with speech. She had trouble with both fluency and slurred speech. Pupils equal round reactive paradoxic muscle intact. Sclerae anicteric. TMs normal. Trachea midline. There is no carotid bruit. Heart is regular without murmur, gallop or rub. Lungs are clear to auscultation. Pulses are noted upper and lower extremity and symmetric. NIH is 7. There is no clonus or Babinski sign noted. Test Results: CT of the head interpreted by radiologist reviewed by me as negative. Portable chest x-ray interpreted by me as negative. CBC unremarkable mild anemia. Coags are not available because the hemolyzed. Basic metabolic panel reveals an elevated BUN/creatinine of 33 and 1.25. Glucose is 177. Emergency Department Course and Treatment: With abrupt onset of headache elevated blood pressure will need to obtain CAT scan to evaluate for intracranial bleed. This may represent a stroke. Since she is diabetic blood sugar was checked and is greater than 180. She acknowledged that she is compliant with her blood pressure meds. Appropriate blood work was obtained. The onset of her symptoms is unknown. She is not a thrombotic candidate because of the blood pressure and the fact that the onset of her symptoms is unknown. Treatment Plan: Most recent blood pressure is 184/119. She received 10 mg of labetalol. Disposition: Admit PCU Impression: 1. CVA 2. Hypertensive urgency 3. Hyperglycemia and diabetic This note was generated with alphacityguides dictation software. It may contain incorrect words, spelling, and punctuation that were not noted in review of the chart prior to signing ED Disposition - Plan for ED Patient: Chief Complaint: Neuro S/Sx Referrals: John Castillo MD [Primary Care Provider] - What to do if you have Problems For any increased pain, shortness of breath, bleeding, nausea or vomiting, chest pain, or any unexpected problems, contact your Primary Care Provider. Call [facility] ([phone]) or report to the closest Emergency Room. Call 911 if necessary. 03/06/18 5510 <Electronically signed by Haja Muñoz MD> Date Haja Villarrealignskinny Signature (If Indicated): Date CC: Osmin Castillo MD PROTHROMBIN TIME W/INR Collected: 03/06/2018 Status: F Source: [place] 10:35 PM [facility] REPOSITORY TYPE CODE TESTS RESULT OUT OF RANGE REFERENCE UNITS LAB L300.4150 11.7-14.9 SECONDS Normal PROTIME 12.9 LAB L300.4200 Normal INR 1.0 Performed By: #### L300.3900, L300.4310 #### [facility] Laboratory [address] [place], [place], [address] PARTIAL THROMBOPLAST Collected: 03/06/2018 Status: F Source: [place] TIME 10:35 PM [facility] REPOSITORY TYPE CODE TESTS RESULT OUT OF RANGE REFERENCE UNITS LAB L300.4310 24.1-36.2 Seconds Normal PTT 26.3 Performed By: #### L300.3900, L300.4310 #### [facility] Laboratory [address] [place], [place], [address] CBC W/DIFF, AUTOMATED Collected: 03/06/2018 Status: F Source: [place] 10:10 PM [facility] REPOSITORY TYPE CODE TESTS RESULT OUT OF RANGE REFERENCE UNITS LAB L100.1000 4.4-11.0 K/mm3 Normal WBC 9.0 LAB L100.1200 4.2-5.4 M/mm3 Low RBC 3.92 LAB L100.1300 12.0-15.0 g/dl Low HGB 10.8 LAB L100.1400 37-47 % Low HCT 35.0 LAB L100.1500 81-99 fL Normal MCV 89.3 LAB L100.1600 27.0-32.0 pg Normal MCH 27.6 LAB L100.1700 32-36 g/gl Low MCHC 30.9 LAB L100.1810 11.6-14.6 % Normal RDW CV 14.0 LAB L100.1820 35.1-43.9 fl High RDW SD 45.7 LAB L100.1900 150-450 K/mm3 Normal PLT 249 LAB L100.2000 6.2-12.0 fl Normal MPV 10.8 LAB L100.2100 47-70 % High NEUT% 74.8 LAB L100.2200 19-41 % Low LY% 16.5 LAB L100.2300 0-10 % Normal MONO% 5.9 LAB L100.2400 0-5 % Normal EO% 2.3 LAB L100.2500 0-1 % Normal BASO% 0.4 LAB L100.2550 0.0-0.9 % Normal IM GRAN % 0.100 Result Comment: IG% - Immature Granulocytes (promyelocytes, myelocytes and metamyelocytes) > 1% indicates that a LEFT SHIFT is Present. LAB L100.2620 2.0-7.7 X10 3/uL Normal Absolute Neut 6.7 LAB L100.2720 0.83-4.51 X10 3/ul Normal Absolute Lymph 1.48 Performed By: #### L100.0100 #### [facility] Laboratory [address] [place], [address] BASIC METABOLIC Collected: 03/06/2018 Status: F Source: [place] PROFILE (BMP) 10:10 PM [facility] REPOSITORY TYPE CODE TESTS RESULT OUT OF RANGE REFERENCE UNITS LAB L501.0100 74-106 mg/dL High GLU 177 Result Comment: Fasting Glucose result greater than or equal to 126 mg/dL suggests DIABETES MELLITUS per A.D.A. criteria. Please note revised GLUCOSE reference range effective 2017. LAB L501.1000 7-18 mg/dL High BUN 33 LAB L501.1100 0.55-1.02 mg/dL High CREAT,SERUM 1.25 Result Comment: The validity of the calculated GFR AND GFRAA in patients over 70 years has not been determined. Clinical correlation is essential. LAB L501.1110 >60 mL/min Low EST GFR 48 Result Comment: Non- GFR Calc LAB L501.1115 >60 mL/min Low EST GFR - AA 58 Result Comment: GFR Calc LAB L501.1255 ml/min Normal Estimated CRCL 47.91 LAB L501.1300 10-20 RATIO High BUN/CRE 26.4 LAB L501.2200 8.5-10 mg/dL Normal .1 CA 8.6 LAB L501.5300 136-14 mmol/L Normal 5 NA 143 LAB L501.5600 3.5-5. mmol/L Normal 1 K 4.6 LAB L501.5900 98-107 mmol/L High CL 111 LAB L501.6100 21.0-3 mmol/L Normal 2.0 CO2 25.0 LAB L501.6200 5-15 Normal GAP 7 Performed By: #### L500.2500, L501.4010 #### [facility] [address] [place], [address] TROPONIN-I Collected: 03/06/2018 Status: F Source: [place] 10:10 PM [facility] REPOSITORY TYPE CODE TESTS RESULT OUT OF RANGE REFERENCE UNITS LAB L501.4010 <0.045 ng/mL Normal < 0.015 TROPONIN-I Result Comment: TROPONIN-I EXPECTED VALUES <0.045 Negative 0.045 - 0.590 Consistent with Cardiac Damage > OR = 0.600 Critical Value Not every elevated troponin is indicative of ID. These values should be used with clinical judgement in examining the patient's clinical picture for diagnosis. To establish a diagnosis of ID versus myocardial injury, there must be a demonstrated rise and/or fall in the troponin values, in addition to ischemic symptoms, EKG changes, new regional wall motion abnormality, and/or angiographical evidence. PLEASE NOTE: REFERENCE RANGES EDITED 17 Performed By: #### L500.2500, L501.4010 #### [facility] Laboratory [address] [place], [address] THYROID STIM HORMONE Collected: 03/06/2018 Status: F Source: [place] (TSH) 10:10 PM [facility] REPOSITORY TYPE CODE TESTS RESULT OUT OF RANGE REFERENCE UNITS LAB L501.9520 0.358-3.74 uIU/mL Normal TSH 1.03 Performed By: #### L501.9520 #### [facility] Laboratory [address] [place], [address] HEMOGLOBIN A1C Collected: 03/06/2018 Status: F Source: [place] 10:10 PM [facility] REPOSITORY TYPE CODE TESTS RESULT OUT OF RANGE REFERENCE UNITS LAB L501.9985 4.2-6.3 % High HGB A1C 7.9 Performed By: #### L501.9985 #### [facility] Laboratory [address] [place], [address] BEDSIDE GLUCOSE Collected: 03/06/2018 Status: F Source: [place] 10:07 PM [facility] REPOSITORY TYPE CODE TESTS RESULT OUT OF REFERENCE UNITS RANGE LAB L501.080 70-110 mg/dL High BEDSIDE GLU 156 Result Comment: MANAGEMENT OF PATIENT CARE PER NURSING PROTOCOL Performed By: #### L501.080 #### [facility] Laboratory Point of Care [address] [place] [address] BRAIN/HEAD WITHOUT Observed: 03/06/2018 Status: F Source: [place] CONTRAST 9:48 PM [facility] REPOSITORY [facility] Imaging Services [address] [place] [address] Brain/Head without Contrast MR#: [id number] Acct: [id number] Name: SARITAWAYNE TINSLEYRA Up Rep #: [id number] : 1965 F 52 From: Flaco Almonte MD PCP: Osmin Castillo MD Status: PRE ER Study: Brain/Head without Contrast Date of Exam: 03/06/18 Exam# [id number] Ordering Dr: Haja Muñoz MD STUDY: CT BRAIN WITHOUT CONTRAST REASON FOR EXAM: Female, 52 years old. Slurred speech, sudden onset headache with nausea RADIATION DOSAGE (If Supplied By Facility): CTDIvol = ( 60.81 ) mGy, DLP = ( 1089.89 ) mGycm TECHNIQUE: Transaxial CT imaging of the brain was performed without administration of intravenous contrast material. Individualized dose optimization techniques were used for this CT. COMPARISON: None. FINDINGS: Normal soft tissue structures. Normal calvarium. Normal size ventricles and extra-axial spaces for the patient's age. Normal white matter tracts of the cerebral hemispheres. Normal basal ganglia and thalami. Normal brainstem. Normal cerebellum. There is no intracranial hemorrhage. There are no findings of an acute ischemic infarction. Normal visualized paranasal sinuses. CT/Brain/Head without Contrast IMPRESSION: Normal unenhanced CT scan of the brain. N.B. : The above information has been verbally conveyed by Flaco Almonte MD to Dr Ousmane MD, on 03/06/2018 22:13:53 (ET). Electronically Signed: Flaco Almonte MD at 22:14 EST , Service support , CC: Osmin Castillo MD; Haja Muñoz MD [employer] Manager: Signed CHEST 1 VIEW Observed: 03/06/2018 Status: F Source: [place] 9:48 PM [facility] REPOSITORY [facility] Imaging Services [address] [place] [address] Chest 1 View MR#: [id number] Acct: [id number] Name: LORI EDWARD Rep #: [id number] : 1965 F 52 From: Flaco Almonte MD PCP: Osmin Castillo MD Status: REG ER Study: Chest 1 View Date of Exam: 03/06/18 Exam# [id number] Ordering Dr: Haja Muñoz MD STUDY: X-RAY CHEST REASON FOR EXAM: Female, 52 years old. Headache, hypertension TECHNIQUE: Single AP portable view of the chest. COMPARISON: Previous study of 02/15/2018 FINDINGS: night monitor leads are present. The lungs are clear and expanded. There is no demonstrated pleural abnormality. There is mild cardiac enlargement. Normal mediastinum and libby. Normal visualized pulmonary arteries. Normal visualized aortic arch and descending thoracic aorta. Normal visualized thoracic spine. Normal visualized ribs, clavicles, and shoulders. There is no demonstrated abnormality of the visualized soft tissue structures of the upper abdomen. RAD/Chest 1 View IMPRESSION: Mild cardiomegaly. No acute cardiopulmonary disease process is seen. Electronically Signed: Flaco Almonte MD at 22:38 EST , Service support , CC: Osmin Castillo MD; Haja Muñoz MD Hairmasters Manager: Signed OPERATIVE REPORT Observed: 02/28/2018 Status: F Source: [place] 6:26 PM [facility] REPOSITORY [facility] Medical Records Department [address] [place] [address] Operative Report 02/28/18 1754 MR#: [id number] Acct: [id number] Name: LORI EDWARD Rep #: [id number] : 1965 52 From: Ashanti Sotomayor DPM PCP: Osmin Castillo MD Status: [facility] Y Location: [facility] Report of Operation Date of Procedure: 02/27/18 Pre-Operative Diagnosis: L maisonneuve fracture with syndesmotic instability Post-Operative Diagnosis: same Surgery/Procedure Performed:: ORIF left maisonneuve fracture and syndesmotic stabilization Description of Surgical Findings:: see dictation wet machine operator: Imani Salgado Type of Anesthesia:: Spinal/Supplemental Specimen's removed: none Drains: none Estimated Blood Loss (mL): minimal Description of Procedure: Indications: Pt is a 52 yo F who sustained A left Maisonneuve fracture of her fibula with syndesmotic disruption when she fell at work on 02/09/2018. She presented to my office on 02/12/2018 after being seen in the ER for this injury. Radiographs revealed a PER 3 type fracture and surgical intervention was agreed upon. 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 All risks, complications, and alternatives were discussed with the patient, and the patient signed an informed consent. No guarantees were given. Procedure: On 02/28/2018 Lori Edward was visually and verbally identified in the preoperative holding area. The consent form was again reviewed with the patient, as were all risks, complications, and alternatives and the patient wished to proceed with the proposed surgery. The Left lower leg was marked as the correct operative extremity. The patient was brought to the operating room and placed on the operating room table in the lazy lateral position. After anesthesia, a surgical time out was performed and all present were in agreement. a pneumatic thigh tourniquet was then placed. At this time the left lower extremity was prepped and draped in the usual sterile fashion. after exsanguination with an esmarch the tourniquet was inflated to 300 mmHg. At this time attention was directed to the Left lower leg, using intra operative fluoroscopy the proximal fibula fracture was again visualized and noted to be displaced. Using a #15 blade a linear incision was made over the distal fibula at the level of the tibiofibular joint. The incision was bluntly carried deep through the subcutaneous tissues with careful attention paid to all bleeders, which were clamped and tied or bovied as necessary. All vital neurovascular structures were retracted. Under intra operative fluoroscopy a 3.5mm cortical transyndesmotic screw with a washer was placed per AO technique parallel to the tibiotalar joint angled slightly from the lateral posterior fibula to the medial tibia. A second screw and washer were then placed 1cm distal to that screw and again parallel to the tibiotalar joint under intraoperative fluoroscopy. Syndesmotic stability was confirmed with the external rotation and hook tests. The medial clear space as maintained. The proximal fibular fracture was again visualized under intraoperative fluoroscopy and noted to be in appropriate alignment and position. The incision was flushed with copious amounts of normal sterile saline and closure was initiated. deep layers were closed with 2.0 vicryl, subcutaneous tissue was closed with 3.0 vicryl and 3.0 prolene was used for skin. Adaptic and dry sterile dressing were applied. A multilayer compressive dressing was applied with a well padded posterior splint. Total tourniquet time was 26 minutes. immediate capillary refill was noted to all digits upon deflation. Intra operative fluoroscopy was utilized throughout the case to aid in visualization and confirmation of fracture reduction and screw placement. Interpretation of the images was vital to my decision making process. The patient tolerated the procedure and anesthesia well. The patient was then transported to the postanesthesia care unit by a member of the anesthesia team and myself with all vital signs stable and neurovascular status of the left lower extremity equal to pre-operative levels. Anesthesia will administer a LLE lower sciatic block in PACU. At the end of the case all sponge, needle and instrument counts were found to be correct. Grafts/Implants Used: Andrew 3.5 cortical screws and washers x 2 - Complications none - Admit VTE Documentation VTE Present on Admission: No VTE Mechan Device Prophylaxis: Knee High CRUZ Hose VTE Pharm Prophylaxis ordered?: Yes 02/28/18 1826 <Electronically signed by Ashanti Sotomayor DPM> Date Ashanti Sotomayor DPM CC: SHERMAN Sotomayor; Osmin Castillo MD Signed BEDSIDE GLUCOSE Collected: 02/27/2018 Status: F Source: [place] 12:08 PM [facility] REPOSITORY TYPE CODE TESTS RESULT OUT OF REFERENCE UNITS RANGE LAB L501.080 70-110 mg/dL High BEDSIDE GLU 153 Result Comment: MANAGEMENT OF PATIENT CARE PER NURSING PROTOCOL Performed By: #### L501.080 #### [facility] Laboratory Point of Care [address] [facility] [place] [address] DISCHARGE INSTRUCTION Observed: 02/27/2018 Status: F Source: [place] 11:25 AM [facility] REPOSITORY [facility] Medical Records Department [address] [place] [address] Instructions for Home/Discharge Instructions 02/27/18 1119 MR#: [id number] Acct: [id number] Name: LORI EDWARD Rep #: [id number] : 1965 52 From: Ashanti Sotomayor DPM PCP: Osmin Castillo MD Status: REG [facility] Discharge Activity: May Not Drive, May not drive while taking narcotic pain medications., May Not Shower, Use Walker, Use Crutches Ice area for (Minutes): 20 - behind left knee 20 minutes of each hour while awake Weight Bearing Status: No weight bearing Keep extremity elevated above heart level: Operative Extremity Call your doctor if your incision/area has: Sudden Increased Bleeding Call your doctor if you observe: Fever of 101 or Higher, Shortness of breath, Chest pain, Increased palpitations (irregular heartbeat), Calf discomfort, Uncontrolled pain Cleanse incision/area with: Keep Dressing Clean AND Dry Allergies/Adverse Reactions: Allergies Latex, Natural Rubber Allergy (Verified 02/21/18 10:53) Rash Penicillins Allergy (Verified 02/21/18 10:53) Swelling lactose Adverse Reaction (Verified 02/21/18 10:53) Diarrhea Medications to take at Discharge albuterol sulfate HFA 90 mcg/actuation aerosol inhaler 2 puff INHALATION Q4H PRN g 04/11/17 Alogliptin Benzoate [Alogliptin] 25 mg PO DAILY 05/28/17 Basaglar Kwikpen U-100 46 unit SQ QHS 05/28/17 Montelukast [Singulair] 10 mg PO QHS 05/28/17 Omeprazole 40 mg PO DAILY 05/28/17 Bifidobacterium infantis 4 mg capsule 4 mg PO DAILY 06/16/17 furosemide 20 mg tablet 40 mg PO BID tab 09/21/17 glipizide 5 mg tablet 10 mg PO DAILY tab 09/21/17 lisinopril 40 mg tablet 40 mg PO QDAY 09/21/17 loratadine 10 mg capsule 10 mg PO QDAY #30 cap 09/21/17 metoprolol tartrate 25 mg tablet 25 mg PO BID 09/21/17 fluticasone 100 mcg-vilanterol 25 mcg/dose powder for inhalation 1 inh INHALATION Q24H #60 ea 12/14/17 Ibuprofen 600 mg PO DAILY PRN 02/21/18 Lactobacillus Acidophilus [Acidophilus] 1 each PO DAILY 02/21/18 Doxycycline [Vibramycin] 100 mg PO BID 14 Days #28 cap 02/27/18 Hydrocodone Bitart/Apap 5-325 [Grassflat 5MG-325MG] 1 tab PO Q4H PRN PRN 7 Days #28 tab 02/27/18 Primary Care Physician: John Castillo MD [Primary Care Provider] - Test Results: Test results from this visit will be discussed in further detail at your follow-up appointment, if applicable. Please Follow Up With: Ashanti Sotomayor DPM - F/u at previously scheduled post operative appointment Proposed Discharge Date: 02/27/18 02/27/18 5630 <Electronically signed by Ashanti Sotomayor DPM> Date Ashanti Sotomayor DPM CC: Osmin Castillo MD ANKLE MIN 3 VIEWS Observed: 02/27/2018 Status: F Source: [place] 11:11 AM [facility] REPOSITORY [facility] Imaging Services [address] [place] [address] Ankle min 3 Views MR#: [id number] Acct: [id number] Name: LORI EDWARD Rep #: [id number] : 1965 F 52 From: Mauro Gannon MD PCP: Osmin Castillo MD Status: [facility] Study: Ankle min 3 Views Date of Exam: 02/27/18 Exam# [id number] Ordering Dr: Ashanti Sotomayor DPM STUDY: X-RAY - LEFT ANKLE REASON FOR EXAM: Female, 52 years old. Postoperative evaluation. TECHNIQUE: 3 view(s) of the ankle. COMPARISON: Comparison is made with prior examination done earlier today. FINDINGS: Normal visualized distal tibia and fibula. Normal medial and lateral malleoli. Normal tibiotalar articulation and ankle mortise. 2 screws are seen at the distal tibial fibular joint. Normal visualized talus and calcaneus. The visualized subtalar, talonavicular, calcaneocuboid and tarsal articulations are normal. Postoperative soft tissue changes. RAD/Ankle min 3 Views IMPRESSION: Status post screw fixation of the distal tibial fibular joint. Electronically Signed: Mauro Gannon MD at 15:38 EST Tel [phone], Service support , CC: SHERMAN Castillo MD Hairmasters Manager: Signed TIBIA AND FIBULA Observed: 02/27/2018 Status: F Source: [place] 2 VIEWS 11:11 AM [facility] REPOSITORY [facility] Imaging Services [address] [place] [address] Tibia AND Fibula 2 Views MR#: [id number] Acct: [id number] Name: LORI EDWARD Rep #: [id number] : 1965 F 52 From: Mauro Gannon MD PCP: Osmin Castillo MD Status: [facility] Study: Tibia AND Fibula 2 Views Date of Exam: 02/27/18 Exam# [id number] Ordering Dr: Ashanti Sotomayor DPM STUDY: X-RAY - LEFT TIBIA AND FIBULA REASON FOR EXAM: Female, 52 years old. Postoperative evaluation. TECHNIQUE: 3 view(s) of the tibia and fibula were obtained. COMPARISON: Comparison is made with prior examination done earlier today. FINDINGS: The patient is status post 2 screw fixation of the distal tibial fibular joint. Nondisplaced transverse fracture of the proximal fibular shaft. Postoperative soft tissue changes. RAD/Tibia AND Fibula 2 Views IMPRESSION: Status post screw fixation of the distal tibiofibular joint. Nondisplaced fracture of the proximal fibular shaft. Electronically Signed: Mauro Gannon MD at 15:40 EST Tel [phone], Service support , CC: SHERMAN Castillo MD Hairmasters Manager: Signed BEDSIDE GLUCOSE Collected: 02/27/2018 Status: F Source: [place] 7:51 AM [facility] REPOSITORY TYPE CODE TESTS RESULT OUT OF REFERENCE UNITS RANGE LAB L501.080 70-110 mg/dL High BEDSIDE GLU 167 Result Comment: MANAGEMENT OF PATIENT CARE PER NURSING PROTOCOL Performed By: #### L501.080 #### [facility] Laboratory Point of Care [address] [place] [address] PROTHROMBIN TIME W/INR Collected: 02/27/2018 Status: F Source: [place] 7:40 AM [facility] REPOSITORY Order Comment: Reason for Laboratory Test PREOP TYPE CODE TESTS RESULT OUT OF RANGE REFERENCE UNITS LAB L300.4150 11.7-14.9 SECONDS Normal PROTIME 13.1 LAB L300.4200 Normal INR 1.0 Performed By: #### L300.3900, L300.4310 #### [facility] Laboratory [address] [place], [address] PARTIAL THROMBOPLAST Collected: 02/27/2018 Status: F Source: [place] TIME 7:40 AM [facility] REPOSITORY Order Comment: Reason for Laboratory Test PREOP TYPE CODE TESTS RESULT OUT OF RANGE REFERENCE UNITS LAB L300.4310 24.1-36.2 Seconds Normal PTT 27.5 Performed By: #### L300.3900, L300.4310 #### [facility] Laboratory [address] [place], [address] ANKLE MIN 3 VIEWS Observed: 02/27/2018 Status: F Source: [place] 12:08 AM [facility] REPOSITORY [facility] Imaging Services [address] [place] [address] Ankle min 3 Views MR#: [id number] Acct: [id number] Name: LORI EDWARD Rep #: [id number] : 1965 F 52 From: Mauro Gannon MD PCP: Osmin Castillo MD Status: [facility] Study: Ankle min 3 Views Date of Exam: 02/27/18 Exam# [id number] Ordering Dr: Ashanti Sotomayor DPM STUDY: X-RAY - LEFT ANKLE REASON FOR EXAM: Female, 52 years old. Upper reduction internal fixation in the OR. TECHNIQUE: 3 view(s) of the ankle. COMPARISON: None. FINDINGS: Fluoroscopic imaging provided for open reduction internal fixation of the distal tibial fibular joint utilizing 2 screws fixation devices. Nondisplaced transverse fracture of the proximal fibula. RAD/Ankle min 3 Views IMPRESSION: Intraoperative imaging provided for fixation of the distal tibial fibular joint. Electronically Signed: Mauro Gannon MD at 14:29 EST Tel [phone], Service support , CC: SHERMAN Sotomayor; Osmin Castillo MD Hairmasters Manager: Signed CHEST PA AND LATERAL Observed: 02/15/2018 Status: F Source: [place] 4:37 PM [facility] REPOSITORY [facility] Imaging Services [address] [place] [address] Chest PA and Lateral MR#: [id number] Acct: [id number] Name: LORI EDWARD Rep #: [id number] : 1965 F 52 From: Horacio Pereyra MD PCP: Osmin Castillo MD Status: REG CLI Study: Chest PA and Lateral Date of Exam: 02/15/18 Exam# [id number] Ordering Dr: John Castillo MD HISTORY: SOB AND COUGH EXAM: XR Chest 2 Views: COMPARISON: 03/20/2017 FINDINGS: No significant change. Normal heart size. No vascular congestion, pleural effusion, or acute pulmonary infiltration. No pneumothorax. RAD/Chest PA and Lateral IMPRESSION: No acute disease or significant change. at 0132 Reported and signed by: Horacio Pereyra MD Electronically Signed: Horacio Pereyra, at 1:30 EST Tel , Service support , CC: Osmin Castillo MD Hairmasters Manager: Signed KNEE 4 OR MORE Observed: 02/15/2018 Status: F Source: [place] VIEWS 4:37 PM [facility] REPOSITORY [facility] Imaging Services [address] [place] [address] Knee 4 or More Views MR#: [id number] Acct: [id number] Name: LORI EDWARD Rep #: [id number] : 1965 F 52 From: Horacio Pereyra MD PCP: Osmin Castillo MD Status: [facility] CLI Study: Knee 4 or More Views Date of Exam: 02/15/18 Exam# [id number] Ordering Dr: John Castillo MD HISTORY: PATIENT FELL. PAIN IN LEFT KNEE. COMPARISON: None FINDINGS: XR Knee Complete 4 Views Recent, minimally displaced fracture of the proximal shaft of the left fibula. No additional fractures. Joint spaces are preserved. No dislocation. No loose body or joint effusion. Minor spurring of the anterior-superior margin of the patella at quadriceps insertion. RAD/Knee 4 or More Views IMPRESSION: Recent, minimally displaced fracture of the left fibular proximal shaft. Otherwise negative left knee exam. at 0219 Reported and signed by: Horacio Pereyra MD Electronically Signed: Horacio Pereyra, at 2:19 EST Tel , Service support , CC: Omsin Castillo MD Hairmasters Manager: Signed CBC W/DIFF, AUTOMATED Collected: 02/15/2018 Status: F Source: [place] 4:36 PM [facility] REPOSITORY TYPE CODE TESTS RESULT OUT OF RANGE REFERENCE UNITS LAB L100.1000 4.4-11.0 K/mm3 Normal WBC 7.9 LAB L100.1200 4.2-5.4 M/mm3 Low RBC 3.75 LAB L100.1300 12.0-15.0 g/dl Low HGB 10.4 LAB L100.1400 37-47 % Low HCT 34.3 LAB L100.1500 81-99 fL Normal MCV 91.5 LAB L100.1600 27.0-32.0 pg Normal MCH 27.7 LAB L100.1700 32-36 g/gl Low MCHC 30.3 LAB L100.1810 11.6-14.6 % Normal RDW CV 14.3 LAB L100.1820 35.1-43.9 fl High RDW SD 46.2 LAB L100.1900 150-450 K/mm3 Normal PLT 240 LAB L100.2000 6.2-12.0 fl Normal MPV 11.4 LAB L100.2100 47-70 % Normal NEUT% 66.4 LAB L100.2200 19-41 % Normal LY% 22.7 LAB L100.2300 0-10 % Normal MONO% 7.6 LAB L100.2400 0-5 % Normal EO% 2.5 LAB L100.2500 0-1 % Normal BASO% 0.4 LAB L100.2550 0.0-0.9 % Normal IM GRAN % 0.400 Result Comment: IG% - Immature Granulocytes (promyelocytes, myelocytes and metamyelocytes) > 1% indicates that a LEFT SHIFT is Present. LAB L100.2620 2.0-7.7 X10 3/uL Normal Absolute Neut 5.2 LAB L100.2720 0.83-4.51 X10 3/ul Normal Absolute Lymph 1.79 Performed By: #### L100.0100 #### [facility] [address] [place], [place], [address] BASIC METABOLIC Collected: 02/15/2018 Status: F Source: [place] PROFILE ([facility]) 4:36 PM [facility] REPOSITORY TYPE CODE TESTS RESULT OUT OF RANGE REFERENCE UNITS LAB L501.0100 74-106 mg/dL Normal GLU 83 Result Comment: Please note revised GLUCOSE reference range effective 2017. LAB L501.1000 7-18 mg/dL High BUN 32 LAB L501.1100 0.55-1.02 mg/dL High CREAT,SERUM 1.33 Result Comment: The validity of the calculated GFR AND GFRAA in patients over 70 years has not been determined. Clinical correlation is essential. LAB L501.1110 >60 mL/min Low EST GFR 45 Result Comment: Non- GFR Calc LAB L501.1115 >60 mL/min Low EST GFR - AA 54 Result Comment: GFR Calc LAB L501.1300 10-20 RATIO High BUN/CRE 24.1 LAB L501.2200 8.5-10.1 mg/dL CA Normal 8.5 LAB L501.5300 136-145 mmol/L NA Normal 145 LAB L501.5600 3.5-5.1 mmol/L K Normal 4.6 LAB L501.5900 98-107 mmol/L High CL 112 LAB L501.6100 21.0-32.0 mmol/L Normal CO2 27.0 LAB L501.6200 5-15 Normal GAP 6 Performed By: #### L500.2500, L503.6150 #### [facility] [address] [place], [address] IRON Collected: 02/15/2018 Status: F Source: [place] 4:36 PM [facility] REPOSITORY TYPE CODE TESTS RESULT OUT OF RANGE REFERENCE UNITS LAB L503.6150 50-170 ug/dL Low IRON 47 Performed By: #### L500.2500, L503.6150 #### [facility] Laboratory [address] [place], [address] PULMONARY VISIT REPORT Observed: 12/14/2017 Status: F Source: [place] 2:29 PM [facility] REPOSITORY [facility] [address] [place] [address] OFFICE VISIT Date of Service: 12/14/17 MR#: [id number] Acct: [id number] Name: LORI EDWARD Rep #: [id number] : 1965 Provider: Onur Malave MD Age/Sex: 52/F Location: [facility] Status: Signed Assessment AND Plan 1. DARCY (obstructive sleep apnea) G47.33 Plan Patient is not being very compliant with DARCY therapy at this time. Did point out on patient's complaints report of a residual AHI of 0.6, so pressure appears to be appropriate. Okay with transition to nasal pillow interface, but patient would like to try a full facemask when last time. Did point out the patient's AHI severity and patient appeared to respond appropriately. Resume CPAP 12 cm water 2. SOB (shortness of breath) on exertion R06.02 Plan Long discussion with patient about the appropriate use of maintenance inhalers. Patient states that she cannot tolerate her Symbicort secondary to the taste. Patient was given Breo and personally instructed on the use of the Elipta inhaler. Patient reports subjective improvement. Possibly repeat pulmonary function tests in the future once patient is better compliant. Transition from Symbicort to Breo therapy. Recommend appropriate use of maintenance inhalers. Medications New: fluticasone-vilanterol 100-25 mcg/dose (Breo Ellipta) after inha1 inh Inhalation Q24H lation, rinse mouth with water and spit out; do not swallow Plan Detail Other Medications Discontinued: budesonide-formoterol 160-4.5 mcg/actuation (Symbicort) adminis2 puffs Inhalation BID ter with spacer, rinse mouth after each use Discontinued Reason : Order Changed HPI 3 M FU: Details: Patient is a 52-year-old female, currently under care of Dr. Castillo, who presents for evaluation secondary to productive cough. Since last visit, patient denies any ER visits, hospitalizations or prednisone burst. Patient subjectively feels she is worse compared to previous. Patient states she does have a cough productive of clear sputum. Patient reports that she has been using her Symbicort approximately twice per week, but Ventolin 2-3 times per day. Patient states that she does not care for the Symbicort secondary to a foul taste. Patient denies any thrush or sore throat. Patient does report a cough productive of clear sputum on a daily basis. This is not associated with fever, chills, nausea or vomiting. No hemoptysis is been reported. Patient states she has not used her CPAP machine over the last week. Patient states that she feels suffocated and is unable to tolerate it. Patient states that she has had some sinus congestion recently. Patient does state that one day that she was able to wear it for 7 hours she did feel significantly improved. Patient currently has a fullface interface, but is willing to change the nasal pillow. Patient has tried melatonin to help with her sleeping issues with modest effect. Documentation reviewed with the patient Compliance report (November 2017): Attempted use 93% of the time, but only able to get greater than 4 hours 27% of the time for an average of 3 hours 24 minutes. Patient currently on CPAP 12 cm water with a residual AHI of 0.6 and well-controlled leak. Intake Vital Signs09/13/18 Height 5 ft 6 in 12/14/17 Weight: 108.862 kg Intake Visit Reasons: 3 M FU Chief Complaint: DARCY Division Manager Required: No Is patient in pain?: No Allergies Latex, Natural Rubber Allergy (Verified 12/14/17 08:01) Rash Penicillins Allergy (Verified 12/14/17 08:01) Swelling lactose Adverse Reaction (Verified 12/14/17 08:01) Diarrhea Medications albuterol sulfate HFA 90 mcg/actuation aerosol inhaler 2 puff INHALATION Q4H PRN g 04/11/17 [History Confirmed 12/14/17] Alogliptin Benzoate [Alogliptin] 25 mg PO DAILY 05/28/17 [History Confirmed 12/14/17] Basaglar Kwikpen U-100 46 unit SQ QHS 05/28/17 [History Confirmed 12/14/17] Montelukast [Singulair] 10 mg PO DAILY 05/28/17 [History Confirmed 12/14/17] Omeprazole [Omeprazole] 40 mg PO DAILY 05/28/17 [History Confirmed 12/14/17] Bifidobacterium infantis 4 mg capsule 4 mg PO QHS 06/16/17 [History Confirmed 12/14/17] furosemide 20 mg tablet 40 mg PO BID tab 09/21/17 [History Confirmed 12/14/17] glipizide 5 mg tablet 10 mg PO DAILY tab 09/21/17 [History Confirmed 12/14/17] lisinopril 40 mg tablet 40 mg PO QDAY 09/21/17 [History Confirmed 12/14/17] loratadine 10 mg capsule 10 mg PO QDAY #30 cap 09/21/17 [Rx Confirmed 12/14/17] metoprolol tartrate 25 mg tablet 25 mg PO BID 09/21/17 [History Confirmed 12/14/17] Cyclobenzaprine [Flexeril] 10 mg PO TID PRN #20 tab 10/29/17 [Rx Confirmed 12/14/17] Hydrocodone Bitart/Apap 5-325 [Grassflat 5/325] 1 - 2 tab PO Q4H PRN PRN 4 Days #12 tab 10/29/17 [Rx Confirmed 12/14/17] fluticasone 100 mcg-vilanterol 25 mcg/dose powder for inhalation 1 inh INHALATION Q24H #60 ea 12/14/17 [Rx Confirmed 12/14/17] [facility] Medical History Iron deficiency anemia (Acute) Diarrhea in adult patient (Chronic) Gait instability (Acute) Diabetic foot ulcer (Chronic) Venous insufficiency (Acute) History of amputation of hallux (Acute) GERD (gastroesophageal reflux disease) (Chronic) Hypertension (Chronic) Delayed wound healing (Acute) Edema of left lower extremity (Chronic) MRSA (methicillin resistant staph aureus) culture positive (Chronic) 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) Malnutrition (Chronic) Diabetes mellitus with polyneuropathy (Chronic) Vaginal candidiasis (Acute) Diabetic neuropathy (Chronic) Diabetes mellitus type 2, uncontrolled (Chronic) Chronic ulcer of right great toe with fat layer exposed (Chronic) Diabetic ulcer of left great toe (Chronic) Puncture wound of toe of left foot (Chronic) Cellulitis of toe of left foot (Acute) Surgical History Amputated toe (Resolved) H/O: hysterectomy (Resolved) Social History Smoking Status: Unknown if ever smoked second hand exposure: Yes alcohol intake: never substance use type: does not use Review of Systems Const CONSTITUTIONAL: Positive fatigue; negative anorexia, body ache, chills, daytime sleepiness, fever(s), night sweats, oral thrush, stops breathing during sleep, weight loss, sleeping in chair, weight loss, weight gain, frequent colds, seasonal allergies, other, headache(s) or orthopnea EETM Ear Nose Throat Mouth: Positive hearing normal; negative hoarseness, dry mouth in morning, change in vision, itchy eyes, eye pain, swallowing Difficulty, ear pain, headache(s), mouth pain, nasal congestion, nasal discharge, sinus pain, sinus pressure, sore throat, other, hard of hearing, nose bleed or post nasal drip Cardio Cardiovascular: Negative chest pain, chest pain at rest, chest pain with activity, irregular heart rhythm, edema, shortness of breath when lying down, palpitations, other or murmur Resp Respiratory: Positive as per HPI and cough cough: Positive productive color: Positive clear; negative shortness of breath, pain with cough, wheezing, chest congestion, chest tightness, pain on inspiration, inhalers, increase use of rescue inhalers, snoring, apnea or other Gastro Gastrointestional: Negative bloody stools, change in appetite, difficulty swallowing, reflux, hematemesis, melena stool, loose stool, constipation or other Genitourinary: Negative blood in urine, nocturia, pain with urination or other Musc Musculoskeletal: Negative body pain, back pain, neck pain or other Skin/Breast Skin/Breast: Negative dry skin, itching, unusual bruising, breast lump, other or rash Neuro Neurological: Negative restless legs, confusion, weakness or other Psych Psychocological: Negative abnormal sleep pattern, anxiety, thoughts of hurting self/others, hopelessness or other Lymph Lymphatic: Negative easy bleeding, easy bruising, other or swollen lymph nodes Exam Const Constitutional: Positive conversant, cooperative, in no acute respiratory distress, healthy appearing, well developed, well nourished and appears older than stated age Head Head: Positive normocephalic and atraumatic; negative cyanosis of lips/distal nose, frontal sinus tenderness or maxillary sinus tenderness Eyes Eye: Positive clear conjunctiva; negative nystagmus, scleral abnormality or cataract present Ears Ear: Positive hearing normal and external ears normal; negative hard of hearing Nose Nose: Positive external nose normal, septum normal and clear nasal discharge; negative epistaxis or nasal polyp Mouth Mouth: Positive oral mucosae normal, no lesions and crowded posterior oropharynx; negative post nasal drip, malodorous breath or oral thrush present Mallampati Score: III: Mallampati Score Neck Neck: Positive normal visual inspection, full ROM, trachea midline, thick neck and female neck greater than 37 cm (15 in); negative lymphadenopathy or JVD Chest Wall Chest: Positive normal inspection of the chest and symmetric chest movement; negative crepitus or tenderness Resp lung sounds: Positive wheezes, wheeze present on forced exhalation and prolonged expiratory time; negative rhonchi, rales, use of accessory muscles or dullness to percussion Cardio Cardiac: Positive regular rate, regular rhythm, S1 normal and S2 normal; negative murmur, rub or gallop GI GI: Positive normal to inspection and normal bowel sounds; negative distended, ascites or epigastric tenderness Genitourinary: Positive deferred Musc Musculoskeletal: Positive steady gait; negative using an assistive device for ambulation, kyphosis or scoliosis Skin Pulmonary Skin Exam: Positive intact; negative rash, lesion, ulcers, erythema or dermal atrophy Multiple tattoos Pulses Pulse: Yes radial pulses present Extremities Extremities: Yes capillary refill normal, No clubbing, No cyanosis, Yes edema (Trace lower extremity) Neuro Neurologic: Yes conversant, Yes no focal neuro deficits, Yes cooperative, Yes normal cognition, Yes normal coordination, Yes normal concentration Lymph Lymphatic: No lymphadenopathy Psych Appearance: Positive grossly normal Mental Status: Positive mental status grossly normal Mood: Positive congruent mood Affect: Positive normal affect Office Procedures Inhaler Training Inhaler Training Procedure performed by: Onur Malave Inhaler Training: Yes personally trained on inhaler use, sample provided, first dose given in the office, expresses understanding, needs reinforcement and continue to monitor Coding Level of Care Code Off vis,est,level 4 Diagnoses DARCY (obstructive sleep apnea) G47.33 SOB (shortness of breath) on exertion R06.02 12/14/17 1429 <Electronically signed by Onur Malave MD> Date Onur Malave MD Cosigner Signature: Date (if applicable) CC: Osmin Castillo MD BASIC METABOLIC Collected: 11/25/2017 Status: F Source: [place] PROFILE (BMP) 7:36 AM [facility] REPOSITORY Order Comment: Order Date: 11/16/17 Order Info: 0667-1 - BMP Order Info: 85947-8 - LIPID TYPE CODE TESTS RESULT OUT OF RANGE REFERENCE UNITS LAB L501.0100 74-106 mg/dL High GLU 184 Result Comment: Fasting Glucose result greater than or equal to 126 mg/dL suggests DIABETES MELLITUS per A.D.A. criteria. Please note revised GLUCOSE reference range effective 2017. LAB L501.1000 7-18 mg/dL High BUN 34 LAB L501.1100 0.55-1.02 mg/dL High CREAT,SERUM 1.33 Result Comment: The validity of the calculated GFR AND GFRAA in patients over 70 years has not been determined. Clinical correlation is essential. LAB L501.1110 >60 mL/min Low EST GFR 45 Result Comment: Non- GFR Calc LAB L501.1115 >60 mL/min Low EST GFR - AA 54 Result Comment: GFR Calc LAB L501.1300 10-20 RATIO High BUN/CRE 25.6 LAB L501.2200 8.5-10.1 mg/dL CA Normal 8.7 LAB L501.5300 136-145 mmol/L NA Normal 145 LAB L501.5600 3.5-5.1 mmol/L K Normal 4.6 LAB L501.5900 98-107 mmol/L High CL 112 LAB L501.6100 21.0-32.0 mmol/L Normal CO2 27.0 LAB L501.6200 5-15 Normal GAP 6 Performed By: #### L500.2500 #### [facility] [address] [place], [place], [id number] LIPID PROFILE Collected: 11/25/2017 Status: F Source: [place] 7:36 AM [facility] REPOSITORY Order Comment: Order Date: 11/16/17 Order Info: 0667-1 - BMP Order Info: 45028-6 - LIPID TYPE CODE TESTS RESULT OUT OF RANGE REFERENCE UNITS LAB L501.4900 200 mg/dL Normal CHOL 146 Result Comment: <200 mg/dL Desirable 200-240 mg/dL Borderline >240 mg/dL High Risk LAB L501.5000 mg/dL Normal TRIG 91 Result Comment: The drugs N-Acetylcysteine and Metamizole may falsely depress this assay. Serum Triglycerides Reference Interval Normal <150 mg/dL Borderline high 150 - 199 mg/dL High 200 - 499 mg/dL Very High > or = 500 mg/dL LAB L501.6400 mg/dL Normal HDL 41 Result Comment: The drugs N-Acetylcysteine and Metamizole may falsely depress this assay. Reference Range HDL <40 mg/dL Low HDL Cholesterol HDL >or= 60 mg/dL High HDL Cholesterol LAB L501.6500 0-130 mg/dL Normal LDL 87 LAB L501.6600 5-40 mg/dL Normal VLDL 18 Performed By: #### L500.4100 #### [facility] [address] [place], [place], [id number] URINALYSIS, COMPLETE Collected: 11/21/2017 Status: F Source: [place] 4:45 PM [facility] REPOSITORY Order Comment: Order Date: 11/16/17 Order Info: 30965-9 - UAC How was Urine Obtained? DIRECTOR EDUCATION TO SPECIFY TYPE CODE TESTS RESULT OUT OF RANGE REFERENCE UNITS LAB L400.3000 Yellow COLOR Normal Yellow LAB L400.3050 Clear Normal CLARITY Sl. Cloudy LAB L400.3200 Normal mg/dl Normal GLUCOSE, UR Normal LAB L400.3300 Negative mg/dL Normal BILIRUBIN URINE Negative LAB L400.3400 Negative mg/dl Normal KETONE UR Negative LAB L400.3465 1.002-1.030 Normal SP.GR. DIPSTX 1.015 LAB L400.3550 5.0 - 8.0 pH UR Normal 5.0 LAB L400.3600 Negative mg/dl High PROT DIPSTX 100 LAB L400.3700 Normal mg/dl Normal UROBILI Normal LAB L400.3750 Negative Normal NITRITE UR Negative LAB L400.3780 Negative /ul High 25 OCCULT BLOOD-UR LAB L400.3800 Negative /ul High LEUK 25 ESTERASE LAB L400.4050 0-5 /hpf WBC Normal 0-5 SEEN LAB L400.4100 0-5 /hpf Normal RBC-UA 0-5 SEEN LAB L400.4150 5-10 /hpf SQUAM Normal EPI 0-5 SEEN LAB L400.4300 None Seen /hpf 0 Normal BACTERIA SEEN LAB L400.4350 <or=2+ /hpf 0 Normal MUCUS, URINE SEEN Performed By: #### L400.0001 #### [facility] [address] [place] [address], [id number] Observed: 11/21/2017 Status: F Source: [place] CULTURE, URINE 4:45 PM [facility] REPOSITORY Order Date: 11/16/17 Order Info: 630-4 - CUUR Urine Culture There are no CLSI standards for interpretation of this Drug/Organism combination. ORGANISM 1: Pediococcus pentosaceus [place] Count >100,000 Performed By: #### M100.0650 #### [facility] [address] [place] [address], [id number] EMERGENCY DEPARTMENT Observed: 11/01/2017 Status: F Source: [place] SUMMARY 11:34 PM [facility] REPOSITORY [facility] Medical Records Department [address] [place] [address] Emergency Department Summary 11/01/17 2152 MR#: [id number] Acct: [id number] Name: LORI EDWARD Rep #: [id number] : 1965 52 From: Demarco Gomez MD PCP: Osmin Castillo MD Status: DEP ER - ER Visit Summary Date of Service: 11/01/17 Chief Complaint: Back pain History of Present Illness: The patient is a 52 F states she fell in her shower on Monday. Slipped on the water. Injuring her mid lower back. She was seen in the ER at that time she had plain x-rays of her thoracic and lumbar spine which showed significant arthritis and degenerative disease of the disc space but no acute fracture. She was diagnosed with a lumbar and thoracic drain. She is been using NSAIDs. She is complaining of continued pain. She denies any radiation into her legs. She denies any weakness or numbness to her legs. She denies any bowel or bladder retention or incontinence. She denies any fever. She denies abdominal pain. She denies any weakness of her upper or lower extremities. She is never had any back surgeries. She is on no blood thinners. She did not hit her head nor have any LOC when she initially fell. Physical Examination: Well-appearing middle-age female. Vital signs stable. Afebrile. H EENT exam unremarkable atraumatic. Pupils round reactive light. No signs of facial or scalp trauma. C-spine nontender. Trachea midline. Lungs clear to auscultation bilaterally. Heart regular rate and rhythm. Abdomen soft nontender. Normal bowel sounds no peritoneal signs. She is moving all 4 extremities. They are neurovascularly intact. No deformity. Normal range of motion. 5 out of 5 action finisher strength bilaterally. Dorsi plantar flexion intact. Back exam she has tenderness diffusely over the lumbar spine. There is no ecchymosis or bruising. There is no pinpoint tenderness. There is also javy-lumbar soft tissue tenderness. No redness or warmth. Cervical and thoracic spine are nontender to this time. Neurologic exam normal. She has no focal motor or sensory deficits in the upper or lower extremities. She has normal motor strength and range of motion of both upper and lower extremities. In the lower extremities dorsi plantar flexion intact. Negative straight leg raise bilaterally. No cauda equina. No saddle anesthesia. Test Results: None I did review her x-ray results from her last visit. They showed significant degenerative changes but no acute fracture as read by the radiologist and ER physician. Emergency Department Course and Treatment: Patient be discharged home with a Grassflat home pack. Treatment Plan: Follow-up with your primary care physician. Disposition: Discharge Impression: Acute back pain status post fall several days ago. 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 It may contain incorrect words, spelling, and punctuation that were not noted in review of the chart prior to signing ED Disposition - Plan for ED Patient: Chief Complaint: Back Referrals: John Castillo MD [Primary Care Provider] - What to do if you have Problems For any increased pain, shortness of breath, bleeding, nausea or vomiting, chest pain, or any unexpected problems, contact your Primary Care Provider. Call [facility] ([phone]) or report to the closest Emergency Room. Call 911 if necessary. 11/01/17 2334 <Electronically signed by Demarco Gomez MD> Date Demarco Gomez MD Cosigner Signature (If Indicated): Date CC: Osmin Castillo MD DISCHARGE INSTRUCTION Observed: 11/01/2017 Status: F Source: [place] 11:34 PM [facility] REPOSITORY [facility] Medical Records Department [address] [place] [address] Discharge Instruction 11/01/17 2156 MR#: [id number] Acct: [id number] Name: WAGNERLORI M Rep #: [id number] : 1965 52 From: Demarco Gomez MD PCP: Osmin Castillo MD Status: [facility] ER ED Disposition - Plan for ED Patient: Disposition: Home or Assisted Living Chief Complaint: Back Instructions: ED Neck Back Pain General Referrals: John Castillo MD [Primary Care Provider] - As soon as possible Additional Instructions: Grassflat for more severe pain otherwise Tylenol and Motrin. Call and follow-up your primary care physician. Return if any bowel or bladder incontinence or leg weakness. What to do if you have Problems For any increased pain, shortness of breath, bleeding, nausea or vomiting, chest pain, or any unexpected problems, contact your Primary Care Provider. Call [facility] ([phone]) or report to the closest Emergency Room. Call 911 if necessary. 11/01/17 2334 <Electronically signed by Demarco Gomez MD> Date Demarco Gomez MD Cosigner Signature (If Indicated): Date CC: Osmin Castillo MD EMERGENCY DEPARTMENT Observed: 10/29/2017 Status: F Source: [place] SUMMARY 3:43 PM [facility] REPOSITORY [facility] Medical Records Department [address] [place] [address] Emergency Department Summary 10/29/17 0835 MR#: [id number] Acct: [id number] Name: LORI EDWARD Rep #: [id number] : 1965 52 From: Doe Panda MD PCP: Osmin Castillo MD Status: DEP ER - ER Visit Summary Date of Service: 10/29/17 Chief Complaint: Fall History of Present Illness: The patient is a 52 F who fell in the bathtub this morning hit her lumbar region. No head injury no loss of consciousness due to the pain it was difficult for her to crawl out of the bathtub and reach her phone. She called the paramedics. She has no radiation of her pain. No bowel or bladder compromise. She has no neck pain. Physical Examination: She appears in slight distress. Moist mucous membranes, no obvious facial deformity No C-spine tenderness supple neck. Regular rate and rhythm without any obvious murmurs Clear lungs bilaterally speaking in full sentences without any obvious respiratory distress Abdomen soft and nontender no guarding or rebound Moves all extremities without any difficulty or pain. She has a missing left great toe due to her diabetes, she can initiate the dorsiflexion of her great toe on that side, dorsiflexion of the great toe on the right is normal. She has normal plantar flexion bilaterally. She has 1+ patellar reflexes and neurologically intact. She has tenderness over the L1 through S1 regions. Skin does not show any obvious rashes or lesions, no trauma. Alert oriented 3 with no gross focal deficit Test Results: [Straight T-spine and LS-spine are unremarkable other than chronic DJD, patient significantly improved. She is ambulating and will be discharged in stable condition.] Impression: [] Mechanical fall Lumbar strain This note was generated with alphacityguides dictation software. It may contain incorrect words, spelling, and punctuation that were not noted in review of the chart prior to signing ED Disposition - Plan for ED Patient: Disposition: Home or Assisted Living Chief Complaint: Back Instructions: ED Sprain Strain Lumbar Prescriptions: Hydrocodone Bitart/Apap 5-325 [Grassflat 5/325] 1 - 2 tab PO Q4H PRN PRN 4 Days #12 tab PRN Reason: Pain Cyclobenzaprine [Flexeril] 10 mg PO TID PRN #20 tab PRN Reason: Muscle Spasm Referrals: John Castillo MD [Primary Care Provider] - 2 Days What to do if you have Problems For any increased pain, shortness of breath, bleeding, nausea or vomiting, chest pain, or any unexpected problems, contact your Primary Care Provider. Call [facility] ([phone]) or report to the closest Emergency Room. Call 911 if necessary. 10/29/17 154 <Electronically signed by Doe Panda MD> Date Doe Panda MD Cosigner Signature (If Indicated): Date CC: Osmin Castillo MD THORACIC SPINE 2 Observed: 10/29/2017 Status: F Source: [place] VIEWS 8:38 AM [facility] REPOSITORY [facility] Imaging Services [address] [place] [address] Thoracic Spine 2 Views MR#: [id number] Acct: [id number] Name: LORI EDWARD Rep #: [id number] : 1965 F 52 From: Milton Walker MD PCP: Osmin Castillo MD Status: REG ER Study: Thoracic Spine 2 Views Date of Exam: 10/29/17 Exam# [id number] Ordering Dr: Doe Panda MD STUDY: X-RAY - THORACIC SPINE REASON FOR EXAM: Female, 52 years old. fell this am, mid back pain TECHNIQUE: 3 view(s) of the thoracic spine were obtained. COMPARISON: None. FINDINGS: Normal kyphosis of the thoracic spine. There is no substantial scoliosis. There is demineralization of the thoracic spine with endplate spondylosis. There is multilevel disc space narrowing of the thoracic spine. The soft tissue structures are unremarkable. RAD/Thoracic Spine 2 Views IMPRESSION: There is demineralization of the thoracic spine with endplate spondylosis. There is multilevel disc space narrowing of the thoracic spine. Electronically Signed: Milton Walker MD at 9:50 EDT Tel , Service support , CC: Osmin Castillo MD; Doe Panda MD Hairmasters Manager: Signed LUMBAR SPINE 2 OR 3 Observed: 10/29/2017 Status: F Source: [place] VIEWS 8:38 AM [facility] REPOSITORY [facility] Imaging Services [address] [place] [address] Lumbar Spine 2 or 3 Views MR#: [id number] Acct: [id number] Name: LORI EDWARD Rep #: [id number] : 1965 F 52 From: Milton Walker MD PCP: Osmin Castillo MD Status: REG ER Study: Lumbar Spine 2 or 3 Views Date of Exam: 10/29/17 Exam# [id number] Ordering Dr: Doe Panda MD STUDY: X-RAY - LUMBAR SPINE REASON FOR EXAM: Female, 52 years old. Lower back pain TECHNIQUE: 3 view(s) of the lumbar spine were obtained. COMPARISON: None FINDINGS: Normal lumbar lordosis. There is no substantial scoliosis. There is a normal alignment of the vertebrae. There is multilevel endplate spondylosis of the lumbar vertebrae. There is multi-level degenerative disc disease with multi-level disc space narrowing. The soft tissue structures are unremarkable. RAD/Lumbar Spine 2 or 3 Views IMPRESSION: Degenerative changes of the spine, as detailed above. Electronically Signed: Milton Walker MD at 9:51 EDT Tel , Service support , CC: Osmin Castillo MD; Doe Panda MD Hairmasters Manager: Signed PULMONARY VISIT REPORT Observed: 10/26/2017 Status: F Source: [place] 2:58 PM [facility] Pulmonary Medicine [address] [place] [address] OFFICE VISIT Date of Service: 10/26/17 MR#: [id number] Acct: [id number] Name: OSIELWAYNE LARRYRA Up Rep #: [id number] : 1965 Provider: Dunia Hill Age/Sex: 52/F Location: [facility].PM[facility] Status: Signed Assessment AND Plan 1. DARCY (obstructive sleep apnea) G47.33 Plan Patient is using and benefiting from Pap therapy. No indication for titration study at this time. Add melatonin 3 mg 15 minutes prior to bedtime each night. She has been encouraged to contact the office and give us an update on how she has responded to this medication. Continue to encourage weight loss. Contact the office for any new or worsening symptoms in the meantime. Follow-up as previously scheduled on 12/14/17 with [facility]. HPI 1 M FU: Chief Complaint: Daytime hypersomnia HPI Comments Details: This is a 52 year old very pleasant f, here to follow up for sleep apnea. Current use of pressure support therapy is on average of 3.5 hours per night with current settings of 12 cmH2O. LORI denies any daytime somnolence, dry mouth in the morning, snoring through the mask, morning headaches or difficulty with mask leaks, but difficulty falling asleep and is experiencing 3-4 episodes of nocturia nightly. LORI reports feeling somewhat rested in the morning and is benefitting from current therapy.Compliance report was reviewed and shows 100% compliance, current AHI average is 0.3 events per hour, leaks appear to be a frequent issue. Currently she denies any lower extremity edema. She has been compliant with diuresis and is down significant amount of weight since her last office visit. She denies any shortness of breath during conversation, at rest or even on exertion. She denies any cough, sputum production or hemoptysis. She denies any wheezing, chest tightness, chest pain or palpitations. See complete review of systems Intake Vital Signs10/26/17 Height 5 ft 5 in 10/26/17 Weight: 258 lb Intake Visit Reasons: 1 M FU Chief Complaint: DARCY Division Manager Required: No DME Vendor: GM Accompanied by: Self Is patient in pain?: No Allergies Latex, Natural Rubber Allergy (Verified 10/26/17 14:32) Rash Penicillins Allergy (Verified 10/26/17 14:32) Swelling lactose Adverse Reaction (Verified 10/26/17 14:32) Diarrhea Medications Cetirizine HCl [Zyrtec] 10 mg PO DAILY PRN 10/28/15 [History Confirmed 09/21/17] albuterol sulfate HFA 90 mcg/actuation aerosol inhaler 2 puff INHALATION Q4H PRN g 04/11/17 [History Confirmed 09/21/17] budesonide-formoterol HFA 160 mcg-4.5 mcg/actuation aerosol inhaler 2 puff INHALATION BID #1 ea 04/11/17 [Rx Confirmed 09/21/17] Alogliptin Benzoate [Alogliptin] 25 mg PO DAILY 05/28/17 [History Confirmed 09/21/17] Basaglmarkel Mike[place] U-100 1 unit SQ QHS 05/28/17 [History Confirmed 09/21/17] Montelukast [Singulair] 10 mg PO DAILY 05/28/17 [History Confirmed 09/21/17] Omeprazole [Omeprazole] 40 mg PO DAILY 05/28/17 [History Confirmed 09/21/17] Bifidobacterium infantis 4 mg capsule 4 mg PO QHS 06/16/17 [History Confirmed 09/21/17] furosemide 20 mg tablet 40 mg PO BID tab 09/21/17 [History Confirmed 09/21/17] glipizide 5 mg tablet 10 mg PO DAILY tab 09/21/17 [History Confirmed 09/21/17] lactobacillus combination no.8 3 billion cell capsule 3,000 mmu cells PO QDAY 09/21/17 [History Confirmed 09/21/17] lisinopril 40 mg tablet 40 mg PO QDAY 09/21/17 [History Confirmed 09/21/17] loratadine 10 mg capsule 10 mg PO QDAY #30 cap 09/21/17 [Rx Confirmed 09/21/17] metoprolol tartrate 25 mg tablet 25 mg PO BID 09/21/17 [History Confirmed 09/21/17] [facility] Medical History Iron deficiency anemia (Acute) Diarrhea in adult patient (Chronic) Gait instability (Acute) Diabetic foot ulcer (Chronic) Venous insufficiency (Acute) History of amputation of hallux (Acute) GERD (gastroesophageal reflux disease) (Chronic) Hypertension (Chronic) Delayed wound healing (Acute) Edema of left lower extremity (Chronic) MRSA (methicillin resistant staph aureus) culture positive (Chronic) 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) Malnutrition (Chronic) Diabetes mellitus with polyneuropathy (Chronic) Vaginal candidiasis (Acute) Diabetic neuropathy (Chronic) Diabetes mellitus type 2, uncontrolled (Chronic) Chronic ulcer of right great toe with fat layer exposed (Chronic) Diabetic ulcer of left great toe (Chronic) Puncture wound of toe of left foot (Chronic) Cellulitis of toe of left foot (Acute) Surgical History Amputated toe (Resolved) H/O: hysterectomy (Resolved) Social History Smoking Status: Never smoker second hand exposure: Yes alcohol intake: never substance use type: does not use Review of Systems Const CONSTITUTIONAL: Negative anorexia, body ache, chills, daytime sleepiness, fever(s), night sweats, oral thrush, stops breathing during sleep, weight loss, sleeping in chair, fatigue, weight loss, weight gain, frequent colds, seasonal allergies, other, headache(s) or orthopnea EETM Ear Nose Throat Mouth: Positive hearing normal, nasal discharge and post nasal drip; negative hard of hearing, hoarseness, dry mouth in morning, change in vision, itchy eyes, eye pain, swallowing Difficulty, ear pain, nose bleed, headache(s), mouth pain, nasal congestion, sinus pain, sinus pressure, sore throat or other Cardio Cardiovascular: Positive edema Location: lower extremity; negative chest pain, chest pain at rest, chest pain with activity, irregular heart rhythm, shortness of breath when lying down, palpitations, murmur or other Resp Respiratory: Positive as per HPI; negative shortness of breath, pain with cough, wheezing, chest congestion, cough, chest tightness, pain on inspiration, inhalers, increase use of rescue inhalers, snoring, apnea or other Gastro Gastrointestional: Negative bloody stools, change in appetite, difficulty swallowing, reflux, hematemesis, melena stool, loose stool, constipation or other Genitourinary: Positive nocturia; negative blood in urine, pain with urination or other Musc Musculoskeletal: Negative body pain, back pain, neck pain or other Skin/Breast Skin/Breast: Negative dry skin, itching, rash, unusual bruising, breast lump or other Neuro Neurological: Negative restless legs, confusion, weakness or other Psych Psychocological: Negative abnormal sleep pattern, anxiety, thoughts of hurting self/others, hopelessness or other Lymph Lymphatic: Negative easy bleeding, easy bruising, swollen lymph nodes or other Exam Const Constitutional: Positive conversant, cooperative, in no acute respiratory distress, healthy appearing, well developed, well nourished, good hygiene and obese Head Head: Positive normocephalic and atraumatic; negative cyanosis of lips/distal nose Eyes Eye: Positive clear conjunctiva; negative nystagmus or scleral abnormality Ears Ear: Positive hearing normal and external ears normal; negative hard of hearing Nose Nose: Positive external nose normal and no nasal discharge; negative epistaxis Mouth Mouth: Positive post nasal drip, no lesions and crowded posterior oropharynx; negative malodorous breath or oral thrush present Mallampati Score: III: Mallampati Score Neck Neck: Positive normal visual inspection, full ROM, trachea midline, thick neck and female neck greater than 37 cm (15 in); negative lymphadenopathy, JVD or tender Chest Wall Chest: Positive normal inspection of the chest and symmetric chest movement; negative increased A/P diameter Resp lung sounds: Positive clear to auscultation, good air exchange, normal expiratory time and normal respiratory effort; negative diminished, wheezes, rhonchi, rales, dullness to percussion or wheeze present on forced exhalation Cardio Cardiac: Positive regular rate, regular rhythm, S1 normal and S2 normal; negative murmur GI GI: Positive normal to inspection, normal bowel sounds and obese; negative distended Genitourinary: Positive deferred Musc Musculoskeletal: Positive steady gait and ROM normal; negative kyphosis or scoliosis Skin Pulmonary Skin Exam: Positive intact; negative rash, lesion, ulcers, erythema, scaly or dermal atrophy Pulses Pulse: Yes pulses normal x4 extremities Extremities Extremities: Yes capillary refill normal, No clubbing, No cyanosis, Yes edema Location: lower extremity location: Bilateral pitting +2 Neuro Neurologic: Yes conversant, Yes no focal neuro deficits, Yes normal concentration, Yes understands questions, Yes cooperative, Yes normal cognition, Yes normal coordination Lymph Lymphatic: No lymphadenopathy, No tenderness, No cervical adenopathy, No axillary adenopathy Psych Appearance: Positive grossly normal, eye contact and well kempt Mental Status: Positive mental status grossly normal Mood: Positive congruent mood Affect: Positive normal affect Coding Level of Care Code Off vis,est,level 3 Diagnoses DARCY (obstructive sleep apnea) G47.33 10/26/17 7699 <Electronically signed by Dunia MOLINAC> Date Dunia MOLINAC Cosigner Signature: Date (if applicable) CC: Osmin Castillo MD EMERGENCY DEPARTMENT Observed: 10/10/2017 Status: F Source: [place] SUMMARY 7:20 AM [facility] REPOSITORY [facility] Medical Records Department [address] [place] [address] Emergency Department Summary 09/17/17 1606 MR#: [id number] Acct: [id number] Name: LORI EDWARD Rep #: [id number] : 1965 52 From: Yariel Kruse MD PCP: Osmin Castilol MD Status: DEP ER - ER Visit Summary Date of Service: 09/17/17 Chief Complaint: [] Bilateral leg edema History of Present Illness: The patient is a 52 F planing of the above. Is a chronic problem.. Worse for the last 2 weeks. She is on Lasix 30 mg twice a day. Took a second dose extra today at the request of her doctor. She is appointment with her family doctor tomorrow. She does wear tight compression socks. She has chronic lymphedema. She states she leg raises her legs up at night. She says she has some mild shortness of breath Physical Examination: [] Vital signs reviewed General: Well-nourished well-developed Head: Normocephalic atraumatic Eyes: Pupils equal round and reactive to light extraocular movements intact ENT: TMs clear no hemotympanum no trauma Neck: Nontender full range of motion Cardiovascular: Regular rate rhythm no murmurs normal S1-S2 Respiratory: No distress clear to auscultation bilaterally chest nontender Abdomen: Soft nontender nondistended normal bowel sounds no masses Back: Nontender no CVA tenderness Extremities: Lower extremity edema 1+ to the knees bilateral. No calf tenderness. Negative Homans sign. Normal pulses and temperature Neuro alert oriented cranial nerves II through XII intact normal strength sensation reflexes Test Results: [] Emergency Department Course and Treatment: [] This is a chronic edema issue for the patient. She does not have a DVT. We give her CHERRY wraps. She artery took a third dose of Lasix. She will elevate them and limit her water intake. She does not do this. She has an appointment tomorrow. I do not think she has a PE or DVT. Her lungs are completely normal Treatment Plan: [] Disposition: [] Impression: [] Chronic lower extremity edema This note was generated with GO-SIMation software. It may contain incorrect words, spelling, and punctuation that were not noted in review of the chart prior to signing ED Disposition - Plan for ED Patient: Chief Complaint: Edema Referrals: John Castillo MD [Primary Care Provider] - What to do if you have Problems For any increased pain, shortness of breath, bleeding, nausea or vomiting, chest pain, or any unexpected problems, contact your Primary Care Provider. Call [facility] ([phone]) or report to the closest Emergency Room. Call 911 if necessary. 10/10/17719 <Electronically signed by Yariel Kruse MD> Date Yariel Kruse MD Cosigner Signature (If Indicated): Date CC: Osmin Castillo MD DISCHARGE INSTRUCTION Observed: 10/10/2017 Status: F Source: [place] 7:20 AM [facility] REPOSITORY [facility] Medical Records Department [address] [place] [address] Discharge Instruction 09/17/17 1608 MR#: [id number] Acct: [id number] Name: LORI EDWARD Rep #: [id number] : 1965 52 From: Yariel Kruse MD PCP: Osmin Castillo MD Status: DEP ER ED Disposition - Plan for ED Patient: Disposition: Home or Assisted Living Chief Complaint: Edema Instructions: ED Lymphedema Referrals: John Castillo MD [Primary Care Provider] - What to do if you have Problems For any increased pain, shortness of breath, bleeding, nausea or vomiting, chest pain, or any unexpected problems, contact your Primary Care Provider. Call [facility] ([phone]) or report to the closest Emergency Room. Call 911 if necessary. 10/10/17 0720 <Electronically signed by Yariel Kruse MD> Date Yariel Kruse MD Cosigner Signature (If Indicated): Date CC: Osmin Castillo MD PULMONARY VISIT REPORT Observed: 09/22/2017 Status: F Source: [place] 9:58 AM [facility] REPOSITORY [facility] [address] [place] [address] OFFICE VISIT Date of Service: 09/21/17 MR#: [id number] Acct: [id number] Name: LORI EDWARD Rep #: [id number] : 1965 Provider: Dunia Hill Age/Sex: 52/F Location: [facility] Status: Signed Assessment AND Plan 1. DARCY (obstructive sleep apnea) G47.33 Status Chronic Plan She was previously treated with 11 cm of water, felt that this was not high enough pressure and was increased to 14 cm of water. She reports that at 14 continue to water she was feeling suffocated and was unable to tolerate the device more than 4 hours. At this time I will adjust her to 12 cm of water. Follow her up in 1 month. She has been notified that this will be the last adjustment I, if this is not successful in treating her comfortably and maintaining an AHI below 5 events per hour and she will be sent for titration study. We will have her follow-up with Dr. Malave in 3 months from now. She is using and benefiting from current CPAP settings, further adjustments are made only for comfort with hopes of gaining more than 4 hours of use nightly. Plan Detail Other Medications New: lactobacillus combination no.8 (Adult Probi3,000 mmu cells PO QDAY otic) Discontinued: HPI 6 M FU: Chief Complaint: Daytime hypersomnia HPI Comments Details: This patient presents to the office today to follow- up on her obstructive sleep apnea. She is ambulatory and currently on room air. She has not been seen in the ED urgent care for pain pump since last office visit. She is to follow closely with her primary care provider regarding bilateral lower extremity edema. She reports compliance with Lasix 60 mg twice daily. She continues to experience lower extremity edema. She reports that she has been compliant with a low- sodium diet. She denies adding any salt to any foods. Going over her meals for the last couple days she reports frequency and eating fresh fruits and vegetables. She continues to experience shortness of breath on exertion. She has occasional wheezing and chest tightness. She does have a Ventolin rescue inhaler which she has used 2 times today. She does report that in the hot humid weather she is more short of breath. The rescue inhaler does provide her with relief from her shortness of breath and wheezing. She does have a dry cough, denies any sputum production or hemoptysis. She reports a weight gain and swelling of her hands and abdomen is well. She has been compliant with her CPAP. She tries to wear it at least 4 hours nightly. She is feeling somewhat more rested. She has not currently napping. She is still having about 2 episodes of nocturia nightly. She denies falling asleep while watching TV. She denies any difficulty with dry mouth. She also denies frequent headaches. She is compliant with Symbicort 2 puffs twice daily. She denies any medication side effects such as sore throat or thrush. She has not added any [id number] medications for her symptoms. Complaints report for the past 30 days has been reviewed and shows that the patient is using the device 100% of the time. Average use is just under 4 hours. Current setting is 14 cm water which has been increased from 11 cm of water. The change was made 7 days ago. Current AHI is 0.4 events per hour. It is notable that after the increase to 14 cm of water and AHI is more controlled. Leaks do not appear to be an occasional problem, it does not appear that they are more frequent at the higher pressures. Intake Vital Signs09/21/17 Height 5 ft 5 in 09/21/17 Weight: 272 lb Intake Visit Reasons: 6 M FU Chief Complaint: DARCY Accompanied by: Self Is patient in pain?: Yes Allergies Latex, Natural Rubber Allergy (Verified 09/21/17 14:24) Rash Penicillins Allergy (Verified 09/21/17 14:24) Swelling lactose Adverse Reaction (Verified 09/21/17 14:24) Diarrhea Medications Cetirizine HCl [Zyrtec] 10 mg PO DAILY PRN 10/28/15 [History Confirmed 09/21/17] albuterol sulfate HFA 90 mcg/actuation aerosol inhaler 2 puff INHALATION Q4H PRN g 04/11/17 [History Confirmed 09/21/17] budesonide-formoterol HFA 160 mcg-4.5 mcg/actuation aerosol inhaler 2 puff INHALATION BID #1 ea 04/11/17 [Rx Confirmed 09/21/17] Alogliptin Benzoate [Alogliptin] 25 mg PO DAILY 05/28/17 [History Confirmed 09/21/17] Basaglar Kwikpen U-100 1 unit SQ QHS 05/28/17 [History Confirmed 09/21/17] Montelukast [Singulair] 10 mg PO DAILY 05/28/17 [History Confirmed 09/21/17] Omeprazole [Omeprazole] 40 mg PO DAILY 05/28/17 [History Confirmed 09/21/17] Bifidobacterium infantis 4 mg capsule 4 mg PO QHS 06/16/17 [History Confirmed 09/21/17] furosemide 20 mg tablet 40 mg PO BID tab 09/21/17 [History Confirmed 09/21/17] glipizide 5 mg tablet 10 mg PO DAILY tab 09/21/17 [History Confirmed 09/21/17] lactobacillus combination no.8 3 billion cell capsule 3,000 mmu cells PO QDAY 09/21/17 [History Confirmed 09/21/17] lisinopril 40 mg tablet 40 mg PO QDAY 09/21/17 [History Confirmed 09/21/17] loratadine 10 mg capsule 10 mg PO QDAY #30 cap 09/21/17 [Rx Confirmed 09/21/17] metoprolol tartrate 25 mg tablet 25 mg PO BID 09/21/17 [History Confirmed 09/21/17] [facility] Medical History Iron deficiency anemia (Acute) Diarrhea in adult patient (Chronic) Gait instability (Acute) Diabetic foot ulcer (Chronic) Venous insufficiency (Acute) History of amputation of hallux (Acute) GERD (gastroesophageal reflux disease) (Chronic) Hypertension (Chronic) Delayed wound healing (Acute) Edema of left lower extremity (Chronic) MRSA (methicillin resistant staph aureus) culture positive (Chronic) 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) Malnutrition (Chronic) Diabetes mellitus with polyneuropathy (Chronic) Vaginal candidiasis (Acute) Diabetic neuropathy (Chronic) Diabetes mellitus type 2, uncontrolled (Chronic) Chronic ulcer of right great toe with fat layer exposed (Chronic) Diabetic ulcer of left great toe (Chronic) Puncture wound of toe of left foot (Chronic) Cellulitis of toe of left foot (Acute) Surgical History Amputated toe (Resolved) H/O: hysterectomy (Resolved) Social History Smoking Status: Never smoker second hand exposure: Yes alcohol intake: never substance use type: does not use Review of Systems Const CONSTITUTIONAL: Positive fatigue; negative anorexia, body ache, chills, daytime sleepiness, fever(s), night sweats, oral thrush, stops breathing during sleep, weight loss, sleeping in chair, weight loss, weight gain, frequent colds, seasonal allergies, other, headache(s) or orthopnea EETM Ear Nose Throat Mouth: Positive hearing normal, nasal discharge, post nasal drip and sore throat; negative hard of hearing, hoarseness, dry mouth in morning, change in vision, itchy eyes, eye pain, swallowing Difficulty, ear pain, nose bleed, headache(s), mouth pain, nasal congestion, sinus pain, sinus pressure or other Cardio Cardiovascular: Positive edema Location: lower extremity; negative chest pain, chest pain at rest, chest pain with activity, irregular heart rhythm, shortness of breath when lying down, palpitations, murmur or other Resp Respiratory: Positive as per HPI, shortness of breath shortness of breath: Positive with activity, cough cough: Positive non-productive and inhalers; negative pain with cough, wheezing, chest congestion, chest tightness, pain on inspiration, increase use of rescue inhalers, snoring, apnea or other Gastro Gastrointestional: Negative bloody stools, change in appetite, difficulty swallowing, reflux, hematemesis, melena stool, loose stool, constipation or other Genitourinary: Positive nocturia; negative blood in urine, pain with urination or other Musc Musculoskeletal: Positive body pain; negative back pain, neck pain or other Skin/Breast Skin/Breast: Negative dry skin, itching, rash, unusual bruising, breast lump or other Neuro Neurological: Negative restless legs, confusion, weakness or other Psych Psychocological: Negative abnormal sleep pattern, anxiety, thoughts of hurting self/others, hopelessness or other Lymph Lymphatic: Negative easy bleeding, easy bruising, swollen lymph nodes or other Exam Const Constitutional: Positive conversant, cooperative, in no acute respiratory distress, healthy appearing, well developed, well nourished, good hygiene and obese Head Head: Positive normocephalic and atraumatic; negative cyanosis of lips/distal nose Eyes Eye: Positive clear conjunctiva and nystagmus; negative scleral abnormality Ears Ear: Positive hearing normal and external ears normal; negative hard of hearing Nose Nose: Positive external nose normal and no nasal discharge; negative epistaxis Mouth Mouth: Positive post nasal drip, oral mucosae normal, no lesions, dentures and posterior oropharynx is adequate; negative malodorous breath or oral thrush present Mallampati Score: II: Mallampati Score Neck Neck: Positive normal visual inspection, full ROM, trachea midline, thick neck and female neck greater than 37 cm (15 in); negative lymphadenopathy, JVD or tender Chest Wall Chest: Positive normal inspection of the chest and symmetric chest movement; negative increased A/P diameter Resp lung sounds: Positive clear to auscultation, good air exchange, normal expiratory time and normal respiratory effort; negative diminished, wheezes, rhonchi, rales, dullness to percussion or wheeze present on forced exhalation Cardio Cardiac: Positive regular rate, regular rhythm, S1 normal and S2 normal; negative murmur GI GI: Positive normal to inspection, normal bowel sounds and obese; negative distended Genitourinary: Positive deferred Musc Musculoskeletal: Positive steady gait and ROM normal; negative kyphosis or scoliosis Skin Pulmonary Skin Exam: Positive intact; negative rash, lesion, ulcers, erythema, scaly or dermal atrophy Pulses Pulse: Yes pulses normal x4 extremities Extremities Extremities: Yes edema Location: lower extremity location: Bilateral pitting +2, Yes capillary refill normal, No clubbing, No cyanosis Neuro Neurologic: Yes conversant, Yes no focal neuro deficits, Yes cooperative, Yes normal cognition, Yes normal coordination, Yes normal concentration, Yes understands questions Lymph Lymphatic: No lymphadenopathy, No tenderness, No cervical adenopathy, No axillary adenopathy Psych Appearance: Positive grossly normal, eye contact and well kempt Mental Status: Positive mental status grossly normal Mood: Positive congruent mood Affect: Positive normal affect Coding Level of Care Code Off vis,est,level 3 Diagnoses DARCY (obstructive sleep apnea) G47.33 09/22/17 0958 <Electronically signed by Dunia PYLE> Date Dunia PYLE Cosigner Signature: Date (if applicable) CC: Osmin Castillo MD BEDSIDE GLUCOSE Collected: 09/17/2017 Status: F Source: [place] 4:41 PM [facility] REPOSITORY TYPE CODE TESTS RESULT OUT OF RANGE REFERENCE UNITS LAB L501.080 70-110 mg/dL Normal BEDSIDE GLU 71 Result Comment: Snack Given MANAGEMENT OF PATIENT CARE PER NURSING PROTOCOL Performed By: #### L501.080 #### [facility] Laboratory Point of Care [address] [place], [place] [id number] BEDSIDE GLUCOSE Collected: 09/17/2017 Status: F Source: [place] 4:21 PM [facility] REPOSITORY TYPE CODE TESTS RESULT OUT OF REFERENCE UNITS RANGE LAB L501.080 70-110 mg/dL Low BEDSIDE GLU 60 Result Comment: MANAGEMENT OF PATIENT CARE PER NURSING PROTOCOL Performed By: #### L501.080 #### [facility] Laboratory Point of Care [address] [place] [address] MISCELLANEOUS LAB Collected: 09/15/2017 Status: F Source: [place] [facility]EDURE [facility] Order Comment: Comments: VITK [id number] FZ PROTECT FROM LIGHT Test(s) Ordered: VITK [id number] FZ PROTECT FROM LIGHT TYPE CODE TESTS RESULT OUT OF RANGE REFERENCE UNITS LAB L801.1541 Normal MISC LAB TEST Result Comment: TEST RESULT LIMITS Vitamin K1 0.21 ng/mL 0.13 - 1.88 TESTING PERFORMED AT [facility]. ORIGINAL REPORT ON FILE IN LAB CONTAINS ADDITIONAL TEST SITE INFORMATION. Performed By: #### L801.1541 #### [facility] Laboratory [facility] [place], [address] BASIC METABOLIC Collected: 09/15/2017 Status: F Source: [place] PROFILE (BMP) 3:14 PM [facility] REPOSITORY Order Comment: Order Date: 08/30/17 Order Info: 0667-1 - BMP Order Info: 1798-8 - ASHLEY Order Info: 3040-3 - LIPASE Comments: VITK [id number] FZ PROTECT FROM LIGHT TYPE CODE TESTS RESULT OUT OF RANGE REFERENCE UNITS LAB L501.0100 74-106 mg/dL High GLU 133 Result Comment: Fasting Glucose result greater than or equal to 126 mg/dL suggests DIABETES MELLITUS per A.D.A. criteria. Please note revised GLUCOSE reference range effective 2017. LAB L501.1000 7-18 mg/dL High BUN 29 LAB L501.1100 0.55-1.02 mg/dL High CREAT,SERUM 1.22 Result Comment: The validity of the calculated GFR AND GFRAA in patients over 70 years has not been determined. Clinical correlation is essential. LAB L501.1110 >60 mL/min Low EST GFR 49 Result Comment: Non- GFR Calc LAB L501.1115 >60 mL/min Normal EST GFR - AA 60 Result Comment: GFR Calc LAB L501.1300 10-20 RATIO High BUN/CRE 23.8 LAB L501.2200 8.5-10.1 mg/dL Low CA 8.2 LAB L501.5300 136-145 mmol/L High NA 146 LAB L501.5600 3.5-5.1 mmol/L K Normal 4.1 LAB L501.5900 98-107 mmol/L High CL 113 LAB L501.6100 21.0-32.0 mmol/L Normal CO2 27.0 LAB L501.6200 5-15 Normal GAP 6 Performed By: #### L500.2500, L501.2400, L501.2450 #### [facility] [address] [place], [place], [address] #### L3300.0960, L3400.0920 #### [facility] (refer to report for specific site) refer to report for address and phone number AMYLASE Collected: 09/15/2017 Status: F Source: [place] 3:14 PM [facility] REPOSITORY Order Comment: Order Date: 08/30/17 Order Info: 06- - BMP Order Info: 1797-11 - ASHLEY Order Info: 3040-3 - LIPASE Comments: VITK [id number] FZ PROTECT FROM LIGHT TYPE CODE TESTS RESULT OUT OF RANGE REFERENCE UNITS LAB L501.2400 25-115 U/L Normal ASHLEY 42 Performed By: #### L500.2500, L501.2400, L501.2450 #### [facility] [address] [place], [place], [address] #### L3300.0960, L3400.0920 #### [facility] (refer to report for specific site) refer to report for address and phone number LIPASE Collected: 09/15/2017 Status: F Source: [place] 3:14 PM [facility] REPOSITORY Order Comment: Order Date: 08/30/17 Order Info: 0667-1 - BMP Order Info: [id number] - ASHLEY Order Info: 3040-3 - LIPASE Comments: VITK [id number] FZ PROTECT FROM LIGHT TYPE CODE TESTS RESULT OUT OF RANGE REFERENCE UNITS LAB L501.2450 73-393 U/L Normal LIPASE 227 Performed By: #### L500.2500, L501.2400, L501.2450 #### [facility] [address] [place], [address] #### L3300.0960, L3400.0920 #### [facility] (refer to report for specific site) refer to report for address and phone number VITAMIN D 1,[id number]-DIHYDROXY Collected: 09/15/2017 Status: F Source: [place] 3:14 PM [facility] REPOSITORY Order Comment: Order Date: 08/30/17 Order Info: [id number] - [id number] TYPE CODE TESTS RESULT OUT OF RANGE REFERENCE UNITS LAB L3300.0960 19.9-79.3 pg/mL Normal VITD 1,25 25.8 32834 Result Comment: Performed at: [address] [id number] [employer] Machine Operator: Landry Dhaliwal MD, Phone: [phone] Performed By: #### L500.2500, L501.2400, L501.2450 #### [facility] [address] [facility] [place], [address] #### L3300.0960, L3400.0920 #### [facility] (refer to report for specific site) refer to report for address and phone number VITAMIN A, RETINOL Collected: 09/15/2017 Status: F Source: [place] 3:14 PM [facility] REPOSITORY Order Comment: Order Date: 08/30/17 Order Info: 2923-1 - JOHANN Comments: VITK [id number] FZ PROTECT FROM LIGHT TYPE CODE TESTS RESULT OUT OF RANGE REFERENCE UNITS LAB L3400.0920 33.1-100.0 ug/dL Normal VIT A, [id number] 49.3 Result Comment: Reference intervals for vitamin A determined from National Health and Nutrition Examination Survey, 9911-8873. Individuals with vitamin A less than 20 ug/dL are considered vitamin A deficient and those with serum concentrations less than 10 ug/dL are considered severely deficient. This test was developed and its performance characteristics determined by [employer]. It has not been cleared or approved by the Food and Drug Administration. Performed at: [address] [id number] Roll Or Tape Edge Machine Operator: Landry Dhaliwal MD, Phone: [phone] Performed By: #### L500.2500, L501.2400, L501.2450 #### [facility] [address] [place], [place], [id number] #### L3300.0960, L3400.0920 #### [facility] (refer to report for specific site) refer to report for address and phone number BASIC METABOLIC Collected: 08/29/2017 Status: F Source: [place] PROFILE (BMP) 3:01 PM [facility] REPOSITORY Order Comment: Order Date: 08/24/17 Order Info: 0667-1 - BMP TYPE CODE TESTS RESULT OUT OF RANGE REFERENCE UNITS LAB L501.0100 74-106 mg/dL High GLU 127 Result Comment: Fasting Glucose result greater than or equal to 126 mg/dL suggests DIABETES MELLITUS per A.D.A. criteria. Please note revised GLUCOSE reference range effective 2017. LAB L501.1000 7-18 mg/dL High BUN 32 LAB L501.1100 0.55-1.02 mg/dL High CREAT,SERUM 1.09 Result Comment: The validity of the calculated GFR AND GFRAA in patients over 70 years has not been determined. Clinical correlation is essential. LAB L501.1110 >60 mL/min Low EST GFR 56 Result Comment: Non- GFR Calc LAB L501.1115 >60 mL/min Normal EST GFR - AA 68 Result Comment: GFR Calc LAB L501.1300 10-20 RATIO High BUN/CRE 29.4 LAB L501.2200 8.5-10.1 mg/dL CA Normal 8.6 LAB L501.5300 136-145 mmol/L NA Normal 145 LAB L501.5600 3.5-5.1 mmol/L K Normal 4.4 LAB L501.5900 98-107 mmol/L High CL 110 LAB L501.6100 21.0-32.0 mmol/L Normal CO2 26.0 LAB L501.6200 5-15 Normal GAP 9 Performed By: #### L500.2500 #### [facility] [address] [place], [place], [id number] BNP,B-TYPE NATRIURETIC Collected: 08/07/2017 Status: F Source: [place] PEPTIDE 4:42 PM [facility] REPOSITORY TYPE CODE TESTS RESULT OUT OF RANGE REFERENCE UNITS LAB L503.6620 0-100 pg/mL Normal B-TYPE 53.6 PRINCESS PEP Performed By: #### L503.6620 #### [facility] [address] [place], [address] CBC W/DIFF, AUTOMATED Collected: 08/07/2017 Status: F Source: [place] 4:41 PM [facility] REPOSITORY Order Comment: Order Date: 08/07/17 Order Info: 0184-1 - CBCD TYPE CODE TESTS RESULT OUT OF RANGE REFERENCE UNITS LAB L100.1000 4.4-11.0 K/mm3 Normal WBC 8.3 LAB L100.1200 4.2-5.4 M/mm3 Low RBC 3.56 LAB L100.1300 12.0-15.0 g/dl Low HGB 9.6 LAB L100.1400 37-47 % Low HCT 31.6 LAB L100.1500 81-99 fL Normal MCV 88.8 LAB L100.1600 27.0-32.0 pg Normal MCH 27.0 LAB L100.1700 32-36 g/gl Low MCHC 30.4 LAB L100.1810 11.6-14.6 % High RDW CV 14.7 LAB L100.1820 35.1-43.9 fl High RDW SD 47.1 LAB L100.1900 150-450 K/mm3 Normal PLT 206 LAB L100.2000 6.2-12.0 fl Normal MPV 11.8 LAB L100.2100 47-70 % Normal NEUT% 68.6 LAB L100.2200 19-41 % Normal LY% 20.2 LAB L100.2300 0-10 % Normal MONO% 7.1 LAB L100.2400 0-5 % Normal EO% 3.4 LAB L100.2500 0-1 % Normal BASO% 0.5 LAB L100.2550 0.0-0.9 % Normal IM GRAN % 0.200 Result Comment: IG% - Immature Granulocytes (promyelocytes, myelocytes and metamyelocytes) > 1% indicates that a LEFT SHIFT is Present. LAB L100.2620 2.0-7.7 X10 3/uL Normal Absolute Neut 5.7 LAB L100.2720 0.83-4.51 X10 3/ul Normal Absolute Lymph 1.68 Performed By: #### L100.0100, L500.4050, L501.9520, L503.6150, L503.6550 #### [facility] [place], [address] COMPREHENSIVE METABOLIC Collected: 08/07/2017 Status: F Source: [place] MCKAY 4:41 PM [facility] REPOSITORY Order Comment: Order Date: 08/07/17 Order Info: 0786-1 - CMP Order Info: 3016-3 - TSH Order Info: 2498-4 - FE Order Info: 2276-4 - DOYLE TYPE CODE TESTS RESULT OUT OF RANGE REFERENCE UNITS LAB L501.0100 74-106 mg/dL Normal GLU 95 Result Comment: Please note revised GLUCOSE reference range effective 2017. LAB L501.1000 7-18 mg/dL High BUN 25 LAB L501.1100 0.55-1.02 mg/dL High CREAT,SERUM 1.06 Result Comment: The validity of the calculated GFR AND GFRAA in patients over 70 years has not been determined. Clinical correlation is essential. LAB L501.1110 >60 mL/min Low EST GFR 58 Result Comment: Non- GFR Calc LAB L501.1115 >60 mL/min Normal EST GFR - AA 70 Result Comment: GFR Calc LAB L501.1300 10-20 RATIO High BUN/CRE 23.6 LAB L501.1500 6.4-8.2 g/dL T Normal PROT 6.8 LAB L501.1800 3.2-5.0 g/dL Low ALB 2.9 LAB L501.1950 2.2-4.2 g/dL Normal GLOB 3.9 LAB L501.2000 0.9-2.4 RATIO Low A/G 0.7 LAB L501.2200 8.5-10.1 mg/dL Low CA 8.4 LAB L501.4100 15-37 U/L Normal AST 19 LAB L501.4305 45-117 U/L Normal ALK P 101 LAB L501.4405 13-56 U/L Normal ALT 16 LAB L501.4600 0.20-1.00 mg/dL T Normal BILI 0.20 LAB L501.5300 136-145 mmol/L NA Normal 144 LAB L501.5600 3.5-5.1 mmol/L K Normal 4.6 LAB L501.5900 98-107 mmol/L High CL 109 LAB L501.6100 21.0-32.0 mmol/L Normal CO2 28.0 LAB L501.6200 5-15 Normal GAP 7 Performed By: #### L100.0100, L500.4050, L501.9520, L503.6150, L503.6550 #### [facility] [address] [place], [place], [id number] THYROID STIM HORMONE Collected: 08/07/2017 Status: F Source: [place] (TSH) 4:41 PM [facility] REPOSITORY Order Comment: Order Date: 08/07/17 Order Info: 0786-1 - CMP Order Info: 3016-3 - TSH Order Info: 24984 - FE Order Info: 2276-4 - DOYLE TYPE CODE TESTS RESULT OUT OF RANGE REFERENCE UNITS LAB L501.9520 0.358-3.74 uIU/mL Normal TSH 1.86 Performed By: #### L100.0100, L500.4050, L501.9520, L503.6150, L503.6550 #### [facility] [address] [place], [place], [id number] IRON Collected: 08/07/2017 Status: F Source: [place] 4:41 PM [facility] REPOSITORY Order Comment: Order Date: 08/07/17 Order Info: 0786-1 - CMP Order Info: 3016-3 - TSH Order Info: 2498-4 - FE Order Info: 2276-4 - DOYLE TYPE CODE TESTS RESULT OUT OF RANGE REFERENCE UNITS LAB L503.6150 50-170 ug/dL Low IRON 38 Performed By: #### L100.0100, L500.4050, L501.9520, L503.6150, L503.6550 #### [facility] [address] [place], [place], [id number] FERRITIN Collected: 08/07/2017 Status: F Source: [place] 4:41 PM [facility] REPOSITORY Order Comment: Order Date: 08/07/17 Order Info: 0786-1 - CMP Order Info: 3016-3 - TSH Order Info: 2494 - FE Order Info: 227-4 - DOYLE TYPE CODE TESTS RESULT OUT OF RANGE REFERENCE UNITS LAB L503.6550 8-252 ng/mL Normal FERRITIN 144 Performed By: #### L100.0100, L500.4050, L501.9520, L503.6150, L503.6550 #### [facility] [address] [place], [address] FREE T3 Collected: 08/07/2017 Status: F Source: [place] 4:41 PM [facility] REPOSITORY Order Comment: Order Date: 08/07/17 Order Info: 0786-1 - CMP Order Info: 6-3 - TSH Order Info: 2494 - FE Order Info: 227-4 - DOYLE TYPE CODE TESTS RESULT OUT OF RANGE REFERENCE UNITS LAB L501.10448 2.18-3.98 pg/mL Normal FREE T3 2.4 Performed By: #### L501.74017, L506.0400 #### [facility] [address] [facility] [place], [address] T4 FREE DIRECT Collected: 08/07/2017 Status: F Source: [place] 4:41 PM [facility] REPOSITORY Order Comment: Order Date: 08/07/17 Order Info: 0786-1 - CMP Order Info: 3016-3 - TSH Order Info: 24984 - FE Order Info: 2276-4 - DOYLE TYPE CODE TESTS RESULT OUT OF RANGE REFERENCE UNITS LAB L506.0400 0.76-1.46 ng/dL Normal T4 FREE 1.14 DIRECT Performed By: #### L501.03402, L506.0400 #### [facility] [address] [facility] [place], [address] ABD INC DECUB Observed: 08/07/2017 Status: F Source: [place] AND/OR ERECT 4:31 PM [facility] REPOSITORY [facility] Imaging Services [address] [place] [address] Abd Inc Decub and/or Erect MR#: [id number] Acct: [id number] Name: OLRI EDWARD Rep #: [id number] : 1965 F 52 From: Bryon Roman DO PCP: Osmin Castillo MD Status: REG CLI Study: Abd Inc Decub and/or Erect Date of Exam: 08/07/17 Exam# [id number] Ordering Dr: John Castillo MD STUDY: X-RAY - ABDOMEN/PELVIS REASON FOR EXAM: Female, 52 years old. Abdominal bloating. TECHNIQUE: AP supine and upright views of the abdomen and pelvis. COMPARISON: None. FINDINGS: Normal visualized lung bases. There is a long amount colonic feces. There is no obvious obstruction. There is no small bowel dilatation. There is no demonstrated free abdominal air. The visualized liver, spleen and kidneys are grossly normal in size and morphology. Normal soft tissue structures. Normal visualized osseous structures. RAD/Abd Inc Decub and/or Erect IMPRESSION: Constipation without obstruction. Electronically Signed: Bryon Roman DO at 19:49 EDT Tel [phone], Service support , CC: Osmin Castillo MD Hairmasters Manager: Signed PULMONARY VISIT REPORT Observed: 06/16/2017 Status: F Source: [place] 12:43 PM [facility] REPOSITORY [facility] [address] [place] [address] OFFICE VISIT Date of Service: 06/16/17 MR#: [id number] Acct: [id number] Name: LORI EDWARD Rep #: [id number] : 1965 Provider: Dunia Hill Age/Sex: 52/F Location: [facility].PMW Status: Signed Assessment AND Plan 1. DARCY (obstructive sleep apnea) G47.33 Status Chronic Plan She is having some difficulties with continued air leaks and dry mouth. According to the sleep study for events were controlled even with a pressure as low as 11 cm of water. I will decrease her pressure from 15 down to 11 cm of water. He has an appointment coming up with Dr. Malave at which time he can evaluate her response to therapy and her symptoms. I will also transition her from a full facemask to nasal pillows. We discussed that she may possibly require the addition of a chinstrap if she sleeps with her mouth open. She is agreeable to these changes. She is noticing that the longer she wears the CPAP he more rested she feels the next morning. Currently, she is using and benefiting from therapy. 2. SOB (shortness of breath) on exertion R06.02 Status Chronic Plan Her weight continues to rise, I suspect in response to fluid retention. She is currently on Lasix 20 mg twice daily. She does not have an upcoming follow- up with her PCP. I will treat her temporarily with an increased dose of morning Lasix. He will use 40 mg in the morning and continue the 20 mg in the evening. After 4 days on the increased dose she will resume her chronic maintenance dose of 20 mg twice daily. She has been encouraged to avoid sodium intake. She has been encouraged to contact the office if she develops any new or worsening symptoms prior to her follow-up with Dr. Malave. Plan Detail Other Medications New: HPI 1 M FU: Chief Complaint: DARCY HPI Comments Details: Feels worse than her last visit. She was sleeping in the lobby when I called her back. States she wears her CPAP about half the time because when she moves it leaks. She feels better when she wears it.Patient has a dry cough and wheezing. Uses Ventolin PRN AND Symbicort. This is a 52 year old very pleasant F, currently under the care of Dr. Castillo at [facility], here to follow up for sleep apnea. Current use of pressure support therapy is on average of 4 hours per night with current settings of 15 cmH2O. Last sleep study was completed on April 20, 2017 . LORI reports a decrease daytime somnolence, she denies any nocturia, snoring through the mask, morning headaches or difficulty with mask leaks, but is experiencing dry mouth in the morning. LORI reports feeling rested in the morning and is benefitting from current therapy. Compliance report was reviewed and shows 100% compliance. Current AHI is 0.2 events per hour. Leaks are occasionally a problem but not consistently. Intake Vital Signs06/16/17 Height 5 ft 5 in 06/16/17 Weight: 261 lb Intake Visit Reasons: 1 M FU Allergies Latex, Natural Rubber Allergy (Verified 06/16/17 11:03) Rash Penicillins Allergy (Verified 06/16/17 11:03) Swelling lactose Adverse Reaction (Verified 06/16/17 11:03) Diarrhea Medications Cetirizine HCl [Zyrtec] 10 mg PO DAILY PRN 10/28/15 [History Confirmed 06/16/17] Lisinopril [Zestril] 20 mg PO DAILY 04/20/16 [History Confirmed 06/16/17] albuterol sulfate HFA 90 mcg/actuation aerosol inhaler 2 puff INHALATION Q4H PRN g 04/11/17 [History Confirmed 06/16/17] budesonide-formoterol HFA 160 mcg-4.5 mcg/actuation aerosol inhaler 2 puff INHALATION BID #1 ea 04/11/17 [Rx Confirmed 06/16/17] Alogliptin Benzoate [Alogliptin] 25 mg PO DAILY 05/28/17 [History Confirmed 06/16/17] Basaglar Kwikpen U-100 1 unit SQ QHS 05/28/17 [History Confirmed 06/16/17] Furosemide [Lasix] 20 mg PO BID 05/28/17 [History Confirmed 06/16/17] Glipizide [Glipizide] 5 mg PO DAILY 05/28/17 [History Confirmed 06/16/17] Montelukast [Singulair] 10 mg PO DAILY 05/28/17 [History Confirmed 06/16/17] Omeprazole [Omeprazole] 40 mg PO DAILY 05/28/17 [History Confirmed 06/16/17] Bifidobacterium infantis 4 mg capsule 4 mg PO QHS 06/16/17 [History Confirmed 06/16/17] furosemide 40 mg tablet 40 mg PO ONCE #4 tab 06/16/17 [Rx Confirmed 06/16/17] PFSH Medical History Iron deficiency anemia (Acute) Diarrhea in adult patient (Chronic) Gait instability (Acute) Diabetic foot ulcer (Chronic) Venous insufficiency (Acute) History of amputation of hallux (Acute) GERD (gastroesophageal reflux disease) (Chronic) Hypertension (Chronic) Delayed wound healing (Acute) Edema of left lower extremity (Chronic) MRSA (methicillin resistant staph aureus) culture positive (Chronic) 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) Malnutrition (Chronic) Diabetes mellitus with polyneuropathy (Chronic) Vaginal candidiasis (Acute) Diabetic neuropathy (Chronic) Diabetes mellitus type 2, uncontrolled (Chronic) Chronic ulcer of right great toe with fat layer exposed (Chronic) Diabetic ulcer of left great toe (Chronic) Puncture wound of toe of left foot (Chronic) Cellulitis of toe of left foot (Acute) Surgical History Amputated toe (Resolved) H/O: hysterectomy (Resolved) Social History Smoking Status: Never smoker second hand exposure: Yes alcohol intake: never substance use type: does not use Review of Systems Const CONSTITUTIONAL: Positive sleeping in chair and fatigue; negative anorexia, body ache, chills, daytime sleepiness, fever(s), night sweats, oral thrush, stops breathing during sleep, weight loss, weight loss, weight gain, frequent colds, seasonal allergies, other, headache(s) or orthopnea EETM Ear Nose Throat Mouth: Positive hearing normal, nasal discharge and sore throat; negative hard of hearing, hoarseness, dry mouth in morning, change in vision, itchy eyes, eye pain, swallowing Difficulty, ear pain, nose bleed, headache(s), mouth pain, nasal congestion, post nasal drip, sinus pain, sinus pressure or other Cardio Cardiovascular: Negative chest pain, chest pain at rest, chest pain with activity, irregular heart rhythm, edema, shortness of breath when lying down, palpitations, murmur or other Resp Respiratory: Positive as per HPI, wheezing and cough cough: Positive non-productive; negative shortness of breath, pain with cough, chest congestion, chest tightness, pain on inspiration, inhalers, increase use of rescue inhalers, snoring, apnea or other Gastro Gastrointestional: Negative bloody stools, change in appetite, difficulty swallowing, reflux, hematemesis, melena stool, loose stool, constipation or other Genitourinary: Negative blood in urine, nocturia, pain with urination or other Musc Musculoskeletal: Negative body pain, back pain, neck pain or other Skin/Breast Skin/Breast: Negative dry skin, itching, rash, unusual bruising, breast lump or other Neuro Neurological: Negative restless legs, confusion, weakness or other Psych Psychocological: Negative abnormal sleep pattern, anxiety, thoughts of hurting self/others, hopelessness or other Lymph Lymphatic: Negative easy bleeding, easy bruising, swollen lymph nodes or other Exam Const Constitutional: Positive conversant, cooperative, in no acute respiratory distress, well developed, well nourished, good hygiene and obese Head Head: Positive normocephalic and atraumatic; negative cyanosis of lips/distal nose Eyes Eye: Positive clear conjunctiva and nystagmus; negative scleral abnormality Ears Ear: Positive hearing normal and external ears normal; negative hard of hearing Nose Nose: Positive external nose normal and no nasal discharge; negative epistaxis Mouth Mouth: Positive oral mucosae normal, no lesions, good dentition and crowded posterior oropharynx; negative post nasal drip, malodorous breath or oral thrush present Mallampati Score: III: Mallampati Score Neck Neck: Positive normal visual inspection, full ROM, trachea midline, thick neck and female neck greater than 37 cm (15 in); negative lymphadenopathy, JVD or tender Chest Wall Chest: Positive normal inspection of the chest and symmetric chest movement; negative increased A/P diameter Resp lung sounds: Positive clear to auscultation, good air exchange, normal expiratory time and normal respiratory effort; negative diminished, wheezes, rhonchi, rales, dullness to percussion or wheeze present on forced exhalation Cardio Cardiac: Positive regular rate, regular rhythm, S1 normal and S2 normal; negative murmur GI GI: Positive normal to inspection, normal bowel sounds and obese; negative distended or ascites Genitourinary: Positive deferred Musc Musculoskeletal: Positive steady gait and ROM normal; negative kyphosis or scoliosis Skin Pulmonary Skin Exam: Positive intact; negative rash, lesion, ulcers, erythema, scaly or dermal atrophy Pulses Pulse: Yes pulses normal x4 extremities Extremities Extremities: Yes edema Location: lower extremity location: Bilateral pitting +2, Yes capillary refill normal, No clubbing, No cyanosis, No stasis dermatitis Neuro Neurologic: Yes conversant, Yes no focal neuro deficits, Yes cooperative, Yes normal cognition, Yes normal coordination, Yes normal concentration, Yes understands questions, No tremor Lymph Lymphatic: No lymphadenopathy, No tenderness, No cervical adenopathy, No axillary adenopathy Psych Appearance: Positive grossly normal, eye contact and well kempt Mental Status: Positive mental status grossly normal Mood: Positive congruent mood Affect: Positive normal affect Coding Level of Care Code Off vis,est,level 4 Diagnoses DARCY (obstructive sleep apnea) G47.33 SOB (shortness of breath) on exertion R06.02 06/16/17 1243 <Electronically signed by Dunia PYLE> Date Dunia PYLE Cosigner Signature: Date (if applicable) CC: Osmin Castillo MD EMERGENCY DEPARTMENT Observed: 05/29/2017 Status: F Source: [place] SUMMARY 7:03 AM [facility] Medical Records Department [address] [place] [address] Emergency Department Summary 05/28/17 1215 MR#: [id number] Acct: [id number] Name: LORI EDWARD Rep #: [id number] : 1965 52 From: Reji Daly DO PCP: Osmin Castillo MD Status: DEP ER - ER Visit Summary Date of Service: 05/28/17 Chief Complaint: Right elbow pain History of Present Illness: The patient is a 52 F who states that one week ago she tripped and fell sustaining a FOOSH injury to her right shoulder she went through drywall. She had x-rays of the shoulder that were negative. Over the past several days she has had pain in her right elbow right biceps. She states that she has tried to not use the arm very much keeping it in a 90 flexion at the elbow joint. She notes soreness with range of motion. Physical Examination: Febrile vital signs are stable Right upper extremity the shoulder joint appears normal. Patient is tenderness over the biceps muscle. I can fully flex and extend the elbow though the patient guards it. The biceps appears tense. Neurovascular she is intact distally. Test Results: Elbow x-rays were negative for fracture Emergency Department Course and Treatment: Patient will be encouraged to use the joint. I think that this is most likely muscle spasm of the biceps from her guarding and not using the arm. I think if she would increase range of motion and use utilize it more that will solve the problem. Impression: Good right biceps muscle spasm This note was generated with alphacityguides dictation software. It may contain incorrect words, spelling, and punctuation that were not noted in review of the chart prior to signing ED Disposition - Plan for ED Patient: Disposition: Home or Assisted Living Chief Complaint: Upper Extremity Injury Instructions: ED Spasm Muscle Referrals: John Castillo MD [Primary Care Provider] - (as needed) Additional Instructions: You need to start using the arm. This should loosen up her muscles and allow it to return to normal. What to do if you have Problems For any increased pain, shortness of breath, bleeding, nausea or vomiting, chest pain, or any unexpected problems, contact your Primary Care Provider. Call [facility] ([phone]) or report to the closest Emergency Room. Call 911 if necessary. 05/29/17 0703 <Electronically signed by Reji Daly DO> Date Reji Daly DO Cosigner Signature (If Indicated): Date CC: Osmin Castillo MD ELBOW MIN 3 VIEWS Observed: 05/28/2017 Status: F Source: [place] 12:11 PM [facility] REPOSITORY [facility] Imaging Services [facility] [address] Elbow min 3 Views MR#: [id number] Acct: [id number] Name: LORI EDWARD Rep #: [id number] : 1965 F 52 From: Ashwin Chen PCP: Osmin Castillo MD Status: DEP ER Study: Elbow min 3 Views Date of Exam: 05/28/17 Exam# [id number] Ordering Dr: Reji Daly DO STUDY: X-RAY - RIGHT ELBOW REASON FOR EXAM: Female, 52 years old. fell, elbow pain. TECHNIQUE: 3 view(s) of the elbow. COMPARISON: None. FINDINGS: Normal visualized humerus, radius and ulna. Normal radiocapitellar and ulnotrochlear articulations. The soft tissue structures are unremarkable. RAD/Elbow min 3 Views IMPRESSION: Normal x-ray examination of the elbow. Electronically Signed: Ashwin Chen MD at 12:49 EST Tel , Service support , CC: Osmin Castillo MD; Reji Daly DO Hairmasters Manager: Signed SHOULDER MIN 2 VIEWS Observed: 05/23/2017 Status: F Source: [place] 12:07 PM [facility] REPOSITORY [facility] Imaging Services [address] [place] [address] Shoulder min 2 Views MR#: [id number] Acct: [id number] Name: LORI EDWARD Rep #: [id number] : 1965 F 52 From: Mauro Gannon MD PCP: Osmin Castillo MD Status: REG CLI Study: Shoulder min 2 Views Date of Exam: 05/23/17 Exam# [id number] Ordering Dr: John Castillo MD STUDY: X-RAY - RIGHT SHOULDER REASON FOR EXAM: Female, 52 years old. Right shoulder pain following a recent fall. TECHNIQUE: 4 view(s) of the shoulder. COMPARISON: None. FINDINGS: Normal glenohumeral articulation. Normal acromioclavicular joint. Normal acromion. Normal humeral head and visualized proximal humerus. The soft tissue structures are unremarkable. Normal visualized pulmonary apex. RAD/Shoulder min 2 Views IMPRESSION: Normal x-ray examination of the shoulder. Electronically Signed: Mauro Gannon MD at 11:01 EST Tel [phone], Service support , CC: Osmin Castillo MD Hairmasters Manager: Signed PROGRESS Observed: 05/16/2017 Status: COMPLETED Source: [place] 4:39 PM [facility] REPOSITORY HNO ID: [id number] Author: Janice Jacob Service: (none) Author Type: Nurse Practitioner Type: Progress Notes Filed: 05/16/2017 4:46 PM Note Text: Patient is a 52 year old female presenting with ear problem. The history is provided by the patient. No sales representative advertising was used. Ear Pain Associated symptoms include congestion and coughing. Pertinent negatives include no chest pain, chills, fever, headaches, myalgias, rash or sore throat. CURTIS Edward is a 52 year old female who presents today for CC of left ear pain. This started 3-4 days ago She is also having neck and jaw pain and swollen glands all on left side Symptoms are worsened by chewing and swallowing. She has tried ibuprofen with slight relief. Risk factors none known. PMH AOM in the past. BP 160/88 Pulse 100 Temp 36.2 ?C (97.1 ?F) (Tympanic) Resp 18 Wt 115.7 kg (255 lb) BMI 41.16 kg/m2 ALLERGIES Allergen Reactions - Lactose Diarrhea - Latex Rash, Itching - Penicillins Swelling swollen lips ACTIVE PROBLEM LIST Achalasia Type II Or Unspecified Type Diabetes Mellitus Without Mention of Complication, Not Stated As Uncontrolled Obesity, Unspecified Htn (Hypertension) Asthma Gerd (Gastroesophageal Reflux Disease) Pain, Postoperative, Acute Family History Problem Relation Age of Onset - Diabetes Mother - Heart Mother - Heart Father Social History Marital status: Unknown Spouse name: Years of education: Number of children: 2 Social History Main Topics Smoking status: Never Smoker Smokeless status: Never Used Alcohol use: No Drug use: No Sexual activity: No Review of Systems Constitutional: Negative. Negative for chills, fever and malaise/fatigue. HENT: Positive for congestion and ear pain (left). Negative for sinus pain and sore throat. Left jaw neck pain Respiratory: Positive for cough. Negative for sputum production, shortness of breath and wheezing. Cardiovascular: Negative for chest pain. Musculoskeletal: Negative for myalgias. Skin: Negative for rash. Neurological: Negative for headaches. Physical Exam Constitutional: She is oriented to person, place, and time and well-developed, well-nourished, and in no distress. HENT: Head: Normocephalic and atraumatic. Right Ear: Tympanic membrane, external ear and ear canal normal. Tympanic membrane is not injected, not erythematous, not retracted and not bulging. No middle ear effusion. Left Ear: External ear and ear canal normal. Tympanic membrane is injected, erythematous and retracted. Tympanic membrane is not bulging. A middle ear effusion (suppurative) is present. Nose: Nose normal. Right sinus exhibits no maxillary sinus tenderness and no frontal sinus tenderness. Left sinus exhibits no maxillary sinus tenderness and no frontal sinus tenderness. Mouth/Throat: Uvula is midline, oropharynx is clear and moist and mucous membranes are normal. No oropharyngeal exudate, posterior oropharyngeal edema, posterior oropharyngeal erythema or tonsillar abscesses. Eyes: Conjunctivae and EOM are normal. Pupils are equal, round, and reactive to light. Neck: Normal range of motion. Neck supple. Pulmonary/Chest: Effort normal. Lymphadenopathy: Head (right side): No submental, no submandibular, no tonsillar, no preauricular and no posterior auricular adenopathy present. Head (left side): No submental, no submandibular, no tonsillar, no preauricular and no posterior auricular adenopathy present. She has cervical adenopathy. Right cervical: No superficial cervical adenopathy present. Left cervical: Superficial cervical adenopathy present. Right: No supraclavicular adenopathy present. Left: No supraclavicular adenopathy present. Neurological: She is alert and oriented to person, place, and time. Skin: Skin is warm and dry. Psychiatric: Affect normal. Nursing note and vitals reviewed. repeat BP: BP 138/90 Pulse 100 Temp 36.2 ?C (97.1 ?F) (Tympanic) Resp 18 Wt 115.7 kg (255 lb) BMI 41.16 kg/m2 ASSESSMENT/PLAN: 1. Left acute suppurative otitis media - ICD9: 382.00, ICD10: H66.002 - Will begin treatment with as per antibiotic as written, see orders - The patient should also be given warm salt water gargles, throat lozenges and/or OTC throat spray as needed for the first 5- 7 days of treatment. - Supportive care with plenty of fluids, rest, and analgesia prn. - Follow up in one week if symptoms persist or worsen. - GO TO THE ER IF: 1. You have a severe headache or pain around the ear. 2. You notice swelling around the ear. 3. You have a seizure (convulsion), twitching of the facial muscles, or passes out. 4. You are dizzy, have a stiff neck, or cannot walk or talk normally. * Seek medical care immediately, call 911, go to ER if you have chest pain, difficulty breathing, shortness of breath, inability to swallow. Follow up with Dr. Castillo for BP check - CEFDINIR 300 MG CAPSULE Diagnosis and treatment plan were discussed and questions were answered to the patient's satisfaction. Pt acknowledged understanding of concepts and follow up plan. Specific signs and symptoms that would indicate the need for higher level of care were discussed in detail warranting prompt ER evaluation. Janice Jacob CNP PROGRESS Observed: 05/16/2017 Status: COMPLETED Source: [place] 11:12 AM [facility] REPOSITORY O ID: [id number] Author: Dasha Kendall Service: (none) Author Type: Physician Type: Progress Notes Filed: 05/16/2017 11:17 AM Note Text: NAME: Lori Edward AGE: [age] year old Follow up visit for dysphagia/GERD and chronic diarrhea. Last seen: 2017 HISTORY Patients dysphagia is better after POEM in 02/2017. Has mild heartburn, controlled with omeprazole 40mg a day. -patient continues to have chronic diarrhea for several years. She gets about 3-5 times a day watery to frothy. Occasional accidents. Takes imodium with only partial relief. She has tried fiber in past and it made it worse. Had colonoscopy and egd for this 2014 and it was remarkable. She had c/diff in past (early 2016), but was treated successfully.diabetes is not very well controlled, hg A1c is over 8. Celiac screen in past negative. PERTINENT PRIOR DIAGNOSTIC TESTING MEDICATIONS Current Outpatient Prescriptions: budesonide-formoterol (SYMBICORT) 160-4.5 mcg/actuation inhaler Inhale 2 Puffs as instructed twice daily. Disp: Rfl: montelukast (SINGULAIR) 10 mg tablet Take 10 mg by mouth daily at bedtime. Disp: Rfl: furosemide (LASIX) 40 mg tablet Take 20 mg by mouth twice daily. Disp: Rfl: omeprazole (PRILOSEC) 20 mg capsule Take 2 capsules by mouth twice daily. Disp: Rfl: lisinopril 2.5 mg tablet Take by mouth once daily. Disp: Rfl: alogliptin (NESINA) 25 mg tab Take 25 mg by mouth once daily. Disp: Rfl: insulin glargine (BASAGLAR KWIKPEN) 100 unit/mL (3 mL) inpn Inject 45 Units subcutaneously once daily. Disp: Rfl: loperamide (IMODIUM) 2 mg cap(s) Take 1 capsule by mouth twice daily. Disp: 60 capsule Rfl: 11 glipiZIDE XL (GLUCOTROL XL) 5 mg 24 hr tablet Take 5 mg by mouth once daily. Disp: Rfl: CETIRIZINE HCL (ZYRTEC ORAL) Take by mouth. Disp: Rfl: ALBUTEROL SULFATE (VENTOLIN HFA INHALATION) Inhale as instructed once daily. Disp: Rfl: acetaminophen (TYLENOL) 325 mg tablet Take 650 mg by mouth every 6 hours as needed. Disp: Rfl: oxyCODONE (ROXICODONE) 5 mg/5 mL oral solution Take 5 mL by mouth every 6 hours as needed for Pain. Disp: 140 mL Rfl: 0 gabapentin (NEURONTIN) 600 mg tablet Take 600 mg by mouth daily at bedtime. taking 300 mg in the AM and 600 mg in the PM Disp: Rfl: No current facility-administered medications for this visit. ALLERGIES ALLERGIES Allergen Reactions - Lactose Diarrhea - Latex Rash, Itching - Penicillins Swelling swollen lips PAST MEDICAL HISTORY PAST MEDICAL HISTORY Diagnosis Date - Asthma - Diarrhea - GERD (gastroesophageal reflux disease) - HTN (hypertension) - Mitral valve disorders(424.0) - Obesity, unspecified - Sleep apnea in adult - Type II or unspecified type diabetes mellitus without mention of complication, not stated as uncontrolled dx 1987 PAST SURGICAL HISTORY PAST SURGICAL HISTORY Procedure Laterality Date - AMPUTATION TOE,I-P JT - SECTION HX 1988, 1990 - COLONOSCOP W/ OR W/O BRSH SPEC 01/30/2014 Colonoscopy - EGD W/O OR W/BRUSH/WASH 01/30/2014 EGD - HYSTERECTOMY HX 08/15/2010 - PAST SURGICAL HISTORY OF 02/10/2017 POEM GASTROINTESTINAL REVIEW OF SYSTEMS Difficulty swallowing / foods sticking in throat: No Heartburn: Yes, mild Chest Pain: No Filling up quickly at meals: No Loss of appetite: No Nausea: No Vomiting: No Abdominal pain: No Bloody or black, bowel movements: No Constipation: No Diarrhea: Yes Vomiting blood: No Recent change in weight: Yes REVIEW OF OTHER SYSTEMS GENERAL: No weight loss, malaise or fevers RESPIRATORY: Negative for cough, hemoptysis, wheezing, COPD, dyspnea or shortness of breath CARDIOVASCULAR: Negative for chest pain, leg swelling, hypertension, CHF or palpitations MUSCULOSKELETAL: Negative for joint pain or swelling, back pain or muscle pain SKIN: Negative for lesions, rash, and itching PSYCH: Negative for sleep disturbance, mood disorder and recent psychosocial stressors NEURO: No history of headaches, syncope, paralysis, seizures or tremors PHYSICAL EXAMINATION BP 156/87 Pulse 96 Temp (Src) 97.4 (Oral) Ht 5' 6 (1.68m) Wt 256 lb 12.8 oz (116.5kg) SpO2 95% BMI 41.47 kg/(m2). General appearance: cooperative, in no acute distress Neurological: alert and oriented x3, exam grossly non-focal, No Asterixis Eyes: conjunctivae/corneas clear Oropharynx: Lips, tongue and oral mucosa normal Lungs: Lungs clear to auscultation. No wheezing or ronchi. Heart: S1, S2 Normal Abdomen: Abdomen soft, non-tender, Bowel sounds normal, No masses, No organomegaly and no tenderness on palpation or percussion. Extremities: Extremities normal. No deformities, edema, or skin discoloration Skin:no rashes, lesions, or jaundice Lymph:No abnormal adenopathy Assessment IMPRESSION -Achalasia s/p POEM with resolution of dysphagia but has mild reflux controlled with omeprazole. -Chronic diarrhea, w/u unremarkable in past and with some incontinence PLAN -advised patient to have barium swallow and pH test scheduled -will stool studies (OANDP), probiotic pill once a day, will try cholestyramine twice daily for diarrhea. Continue imodium as needed. Kegels exercises encouraged. -diabetes - if above measures fail will try empiric rifaximin for possible SIBO RTC in 3 months Dasha Kendall MD May 16, 2017 10:56 AM PROGRESS Observed: 05/16/2017 Status: COMPLETED Source: [place] 8:41 AM [facility] REPOSITORY HNO ID: [id number] Author: Padmini Aleman Service: (none) Author Type: (none) Type: Progress Notes Filed: 05/16/2017 8:52 AM Note Text: NAME: Lori Edward AGE: [age] year old Follow up visit for dysphagia. Since last visit she has had an EGD dilation on 11/23/16. Patient has esophageal manometry ordered but does not have this scheduled. Last seen: 11/22/16 HISTORY PERTINENT PRIOR DIAGNOSTIC TESTING Luminal: - EGD 11/23/16-- Dilation in the proximal esophagus. ? - Resistence to passage of the scope at the gastroesophageal junction. Moderate, suggesting possible achalasia. ? - A medium amount of food (residue) in the stomach. ? - Normal examined duodenum. ? - No specimens collected. Extra Luminal: NA Labs: - CBC 02/11/17- HANDH 9.3 and 29.4 - CMP 02/11/17- Glucose 247 CHEST WITHOUT Observed: 04/12/2017 Status: F Source: [place] CONTRAST 5:48 PM [facility] REPOSITORY [facility] Imaging Services [address] [place] [address] Chest without Contrast MR#: [id number] Acct: [id number] Name: LORI EDWARD Rep #: [id number] : 1965 F 51 From: Norman Guerrier MD PCP: Osmin Castillo MD Status: REG CLI Study: Chest without Contrast Date of Exam: 04/12/17 Exam# [id number] Ordering Dr: John Castillo MD STUDY: CT CHEST WITHOUT CONTRAST REASON FOR EXAM: Female, 51 years old. Abnormal chest x-ray RADIATION DOSAGE (If Supplied By Facility): CTDIvol = ( 19.81 ) mGy, DLP = ( 682.97 ) mGycm TECHNIQUE: Transaxial imaging was performed without the administration of intravenous contrast material. Coronal and sagittal reformatted images were created. Individualized dose optimization techniques were used for this CT. COMPARISON: Chest x-ray dated 03/20/2017 FINDINGS: There are no pulmonary infiltrates or pleural effusions. There are no pulmonary nodules or masses. There is no pneumothorax. The heart is normal in size. There is a trace pericardial effusion. There is no thoracic lymphadenopathy. There are is a metallic density in the esophagus which likely represents surgical clips or a monitoring device. This is stable when compared with the prior radiograph. There is no evidence of thoracic aortic aneurysm. Images through the upper abdomen demonstrate no significant abnormality. There are no destructive osseous lesions. CT/Chest without Contrast IMPRESSION: Clear lungs. Trace pericardial effusion. Electronically Signed: Norman Guerrier, at 18:28 EST Tel , Service support , CC: Osmin Castillo MD [employer] Manager: Signed PULMONARY VISIT REPORT Observed: 04/11/2017 Status: F Source: [place] 3:40 PM [facility] REPOSITORY [facility] [address] [place] [address] OFFICE VISIT Date of Service: 04/11/17 MR#: [id number] Acct: [id number] Name: LORI EDWARD Rep #: [id number] : 1965 Provider: Dunia Hill Age/Sex: 51/F Location: [facility] Status: Signed Assessment AND Plan 1. DARCY (obstructive sleep apnea) G47.33 Status Chronic Plan Titration study scheduled. Patient to follow-up with Dr. Malave in 3 months, at which time we can evaluate the patient's response to pressure support therapy. Lengthy discussion on the pathophysiology of sleep apnea. Also discussed what to expect while acclimating to the pressure support device. Patient has been encouraged to contact the office with any troubles, concerns or questions. Orders Orders: 2. SOB (shortness of breath) on exertion R06.02 Status Chronic Plan The patient is self reportedly asthmatic. She is currently being treated with Symbicort, she found it to be very helpful to her shortness of breath. She has had spirometry in the past. Would consider doing a complete pulmonary function test in the future. Follow-up with Dr. Malave in 3 months. Continue Symbicort at this time. Prescription has been provided. Plan Detail Other Medications New: budesonide-formoterol 160-4.5 mcg/actuation (Symbicort) adminis2 puffs Inhalation BID ter with spacer, rinse mouth after each use Follow Up 3 Months ([facility]) HPI Sleep concern: Chief Complaint: day time hypersomnia HPI Comments Details: Patient reports to the office today for initial consultation regarding newly diagnosed obstructive sleep apnea. The patient is ambulatory and currently on room air. She reports that she has been experiencing daytime hypersomnia for many years. She is currently working as a healthcare aide and admits that sometimes when her client is sleeping she catches herself nodding off. She reports that she falls asleep easily when sitting still. She falls asleep easily while reading. She definitely falls asleep as a passenger in a car. She is not sure if she snores, as she sleeps alone. She does report having a dry mouth in the morning. She experiences 3-4 episodes nightly awakening, not necessarily for nocturia. She also reports that sometimes when she wakens in the morning it looks as though she has purple lipstick on. The patient recently underwent a polysomnogram which indicates that she has severe obstructive sleep apnea. The sleep study showed that her overall AASM apnea hypotony index was 27.6 events per hour. She has yet to undergo a titration study. The patient also reports that she has had asthma all of her life. She is currently being treated with a trial dose of Symbicort. She was under the impression that the Symbicort was to be used as a rescue inhaler. She has been educated that the Symbicort is designed as a maintenance medication and should be used 2 puffs twice daily. She is also been instructed to rinse her mouth out after each use. See complete review of systems. The patient reports that she has never been a smoker. Intake Vital Signs04/11/17 Height 5 ft 5 in 04/11/17 Weight: 248 lb Intake Visit Reasons: Sleep problems Accompanied by: Self Allergies Latex, Natural Rubber Allergy (Verified 04/11/17 08:34) Rash Penicillins Allergy (Verified 04/11/17 08:34) Swelling gluten Adverse Reaction (Verified 04/11/17 08:35) Nausea/Vom/Diarrhea Medications Insulin Glargine [Lantus SoloStar Pen] 45 units SC QHS 06/22/13 [History Confirmed 04/11/17] Cetirizine HCl [Zyrtec] 10 mg PO DAILY PRN 10/28/15 [History Confirmed 04/11/17] Gabapentin [Neurontin] 300 mg PO BREAKFAST 02/21/16 [History Confirmed 04/11/17] Gabapentin [Neurontin] 600 mg PO QHS 02/21/16 [History Confirmed 04/11/17] Meloxicam [Mobic] 15 mg PO DAILY 02/21/16 [History Confirmed 04/11/17] Escitalopram Oxalate [Lexapro] 10 mg PO DAILY 04/20/16 [History Confirmed 04/11/17] Lisinopril [Zestril] 2.5 mg PO DAILY 04/20/16 [History Confirmed 04/11/17] Sucralfate [Carafate] 1 gm PO 4X/DAY #60 tab 07/12/16 [Rx Confirmed 04/11/17] Zantac 1 tab PO DAILY 07/12/16 [History Confirmed 04/11/17] albuterol sulfate HFA 90 mcg/actuation aerosol inhaler 2 puff INHALATION Q4H PRN g 04/11/17 [History Confirmed 04/11/17] budesonide-formoterol HFA 160 mcg-4.5 mcg/actuation aerosol inhaler 2 puff INHALATION BID #1 ea 04/11/17 [Rx Confirmed 04/11/17] budesonide-formoterol HFA 160 mcg-4.5 mcg/actuation aerosol inhaler 2 puff INHALATION Q12H 04/11/17 [History Confirmed 04/11/17] Review of Systems Const CONSTITUTIONAL: Positive body ache, chills, daytime sleepiness and fatigue; negative anorexia, fever(s), night sweats, oral thrush, stops breathing during sleep, weight loss, sleeping in chair, weight loss, weight gain, frequent colds, seasonal allergies, other, headache(s) or orthopnea EETM Ear Nose Throat Mouth: Positive hearing normal, change in vision, itchy eyes, eye pain, swallowing Difficulty and nasal discharge; negative hard of hearing, hoarseness, dry mouth in morning, ear pain, nose bleed, headache(s), mouth pain, nasal congestion, post nasal drip, sinus pain, sinus pressure, sore throat or other Cardio Cardiovascular: Positive edema Location: lower extremity; negative chest pain, chest pain at rest, chest pain with activity, irregular heart rhythm, shortness of breath when lying down, palpitations, murmur or other Resp Respiratory: Positive as per HPI and cough; negative shortness of breath, pain with cough, wheezing, chest congestion, chest tightness, pain on inspiration, inhalers, increase use of rescue inhalers, snoring, apnea or other Gastro Gastrointestional: Negative bloody stools, change in appetite, difficulty swallowing, reflux, hematemesis, melena stool, loose stool, constipation or other Genitourinary: Negative blood in urine, nocturia, pain with urination or other Musc Musculoskeletal: Positive back pain; negative body pain, neck pain or other Skin/Breast Skin/Breast: Positive dry skin; negative itching, rash, unusual bruising, breast lump or other Neuro Neurological: Positive restless legs; negative confusion, weakness or other Psych Psychocological: Negative abnormal sleep pattern, anxiety, thoughts of hurting self/others, hopelessness or other Lymph Lymphatic: Negative easy bleeding, easy bruising, swollen lymph nodes or other Exam Const Constitutional: Positive conversant, cooperative, in no acute respiratory distress, healthy appearing, well developed, well nourished, good hygiene and obese Head Head: Positive normocephalic and atraumatic; negative cyanosis of lips/distal nose Eyes Eye: Positive clear conjunctiva and nystagmus; negative scleral abnormality Ears Ear: Positive hearing normal and external ears normal; negative hard of hearing Nose Nose: Positive external nose normal and no nasal discharge; negative epistaxis Mouth Mouth: Positive posterior oropharynx is adequate, oral mucosae normal, no lesions and good dentition; negative post nasal drip, oral thrush present or malodorous breath Mallampati Score: II: Mallampati Score Neck Neck: Positive normal visual inspection, full ROM and trachea midline; negative lymphadenopathy, JVD or tender Chest Wall Chest: Positive normal inspection of the chest and symmetric chest movement; negative increased A/P diameter Resp lung sounds: Positive good air exchange, clear to auscultation, normal expiratory time and normal respiratory effort; negative rhonchi, wheezes, rales, wheeze present on forced exhalation or dullness to percussion Cardio Cardiac: Positive regular rate, regular rhythm, S1 normal and S2 normal; negative murmur GI GI: Positive normal to inspection, normal bowel sounds and obese; negative distended Genitourinary: Positive deferred Musc Musculoskeletal: Positive steady gait and ROM normal; negative kyphosis or scoliosis Skin Pulmonary Skin Exam: Positive intact; negative rash, lesion, ulcers, erythema or scaly Pulses Pulse: Yes pulses normal x4 extremities Extremities Extremities: Yes edema Location: lower extremity location: Bilateral leg swelling: pitting pitting: +2, Yes capillary refill normal, No clubbing, No cyanosis, No stasis dermatitis Neuro Neurologic: Yes conversant, Yes no focal neuro deficits, Yes cooperative, Yes normal cognition, Yes normal coordination, Yes normal concentration, Yes understands questions Lymph Lymphatic: No lymphadenopathy, No tenderness, No cervical adenopathy, No axillary adenopathy Psych Appearance: Positive grossly normal, eye contact and well kempt Mental Status: Positive mental status grossly normal Mood: Positive congruent mood Affect: Positive normal affect 04/11/17 1540 <Electronically signed by Dunia Hill CONSULTANT [employer]. VICE PRESIDENT [employer] (EX )-C> Date Dunia Hill NP-C Cosigner Signature: Date (if applicable) CC: Osmin Castillo MD ALLERGIES ALLERGIES DATE TYPE / CODE NAME / CODE REACTION SEVERITY SOURCE 03/06/2018 Drug Penicillins/Q94655 Swelling Unknown [place] Allergy/416 0476(RXNORM) [facility] 427404(RUST ED CT) Repository 03/06/2018 Drug Latex, Natural Rash Unknown [place] Allergy/416 Rubber/[id number]( [facility] 798024([facility] Rep[facility] 03/06/2018 Drug lactose/[id number] Diarrhea Unknown [place] Allergy/416 (RXNORM) [facility] 418514(RUST ED CT) Repository 04/11/2017 Drug gluten/[id number]( Nausea/Vom/Diar Unknown [place] Allergy/416 RXNORM) marlon [facility] 307426(RUST ED CT) Repository 08/18/2016 DRUG LACTOSE DIARRHEA [facility] INGREDI/[address] [place] 682556(SNOM Repository ED CT) 06/24/2015 Drug PENICILLINS SWELLING [facility] Class/[address] [place] 1003(SNOMED Repository CT) 01/30/2014 DRUG LATEX RASH [facility] INGREDI/[address] [place] 690751(SNOM Repository ED CT) ENCOUNTERS ENCOUNTERS ADMIT/DISCHARGE ACCOUNT ADMITTING ENCOUNTER LOCATION SOURCE NUMBER CLASS 03/16/2018 [id number] Ambulatory [facility] ing:MTLAB Repository 03/06/2018/03/08/20 [id number] [facility] [facility] ing:PCURoom: Repository [id number]: 1 03/06/2018 [id number] [place]i, Ambulatory [facility] [place] [facility] Repository 03/06/2018 [id number] [place], Ambulatory BMSBuilding:[facility] [place] [facility] Repository 02/27/2018/02/28/20 [id number] Ambulatory [address] ing:SDCRoom: Repository AC18 02/15/2018 [id number] [facility] Repository 12/14/2017/12/15/19 [id number] Ambulatory BMSBuilding:B [place] [facility] Hospital Repository 11/25/2017 [id number] [facility]LAB Repository 11/21/2017 [id number] [facility] Repository 11/01/2017/11/02/19 [id number] Emergency [place] Fowler[address] [facility] Hospital ing:ED Repository 10/29/2017/10/30/19 [id number] Emergency Soraida Soraida [address] [facility] [place] [facility] ing:ED Repository 10/26/2017/10/27/19 [id number] Ambulatory BMSBuilding:B Soraida 18 [facility] Hospital Repository 09/21/2017/09/22/19 [id number] Ambulatory BMSBuilding:B S[place]ida 18 [facility] Hospital Repository 09/17/2017/09/18/19 [id number] Emergency Fowler Fowler [address] [facility] [place] [facility] ing:ED Repository 09/15/2017 [id number] [facility] Rep[facility] 08/29/2017 [id number] [facility] Repository 08/07/2017 [id number] [facility]MTRAD Repository 06/16/2017/06/17/19 [id number] Ambulatory BMSBuilding:B Fowler 18 MS.[facility] Hospital Repository 05/28/2017/05/28/19 [id number] Emergency Fowler Fowler 18 [facility] [place] [place] [facility] ing:ED Repository 05/23/2017 [id number] [facility] Repository 05/16/2017/05/16/19 [id number] Ambulatory [address] Repository 05/16/2017/05/16/19 [id number] Ambulatory [address] Repository 04/20/2017 [id number] Ambulatory [facility] ing:SL Repository 04/12/2017 [id number] Ambulatory [facility] ing:CT Repository 04/11/2017/04/11/19 [id number] Ambulatory BMSBuilding:B Soraida 19 [place] 04/06/2017 [id number] Ambulatory [facility] ing:BI Repository PAYERS PAYERS ENCOUNTER GUARANTOR PAYER SUBSCRIBER SOURCE 03/16/2018 LORI Up Primary LORI Quigley [id number] Insurance:CARESOURCEP CHROSTOWSKIDOB: Community BERNADINE LNAPT olicy Number: [id number], [place] [id number] Repository 38268Yhc: (330) Date:2018-03-16P O [phone] () [address]ATTN: [place] [address]DB: 03/16/2018 Secondary NOT GIVENUNK Fowler Insurance:SELF PAY [facility] Number: Effective Repository Date:2018-03-16 03/06/2018 LORI Up Primary LORI Quigley [id number] Insurance:CARESOURCEP CHROSTOWSKIDOB: Community BERNADINE LNAPT olicy Number: [id number], [place] [id number] Repository 624[address]Exf: (330) Date:2018-03-06P O [phone] () [address]ATTN: [place] [address]FK: 03/06/2018 Secondary NOT GIVENUNK Fowler Insurance:SELF PAY [facility] Number: Effective Repository Date:2018-03-06 03/06/2018 LORI Quigley [id number] Insurance:CARESOURCEP CHROSTOWSKIDOB: Community BERNADINE LNAPT olicy Number: [id number], [place] [id number] Repository 00834Moc: (330) Date:2018-03-06P O [phone] () [address]ATTN: [place] [address]TW: 03/06/2018 Secondary NOT GIVENUNK Fowler Insurance:SELF PAY [facility] Number: Effective Repository Date:2018-03-06 03/06/2018 LORI Up Primary LORI Up Fowler [id number] Insurance:CARESOURCEP CHROSTOWSKIDOB: Community BERNADINE LNAPT olicy Number: [id number], [place] [id number] Repository 24950Ftz: (330) Date:2018-03-06P O [phone] () [address]ATTN: [place] [address]GM: 03/06/2018 Secondary NOT GIVENUNK Soraida Insurance:SELF PAY [facility] Number: Effective Repository Date:2018-03-06 02/27/2018 LORI Up Primary LORI Up Fowler [id number] Insurance:SELF INS CHROSTOWSKIDOB: Community BERNADINE LNAPT [facility] [id number], [place] Number: Repository [phone]: [id number] [phone] (HP) Date:3318-36-89TETJUPMC [facility] [address]RENBFW[place], [place] [address]IW: 02/27/2018 Secondary LORI Up Fowler Insurance:CARESOURCEP CHROSTOWSKIDOB: Community olicy Number: [id number] [id number] Repository Date:2018-02-15P O [address]ATTN: [place] [address]MJ: 02/27/2018 Tertiary NOT GIVENUNK Fowler Insurance:SELF PAY [facility] Number: Effective Repository Date:2018-02-15 02/15/2018 LORI Up Primary LORI Up Fowler [id number] Insurance:SELF INS CHROSTOWSKIDOB: Community BERNADINE LNAPT [facility] [id number] [facility] BrooklynPolic Number: Repository [address]Wce: (250) [id number] [phone] (HP) Date:0099-12-22AHPPLSMINNEAPOLIS VA [facility] [address] [address]CGICXYONX, [place] [address]XJ: 02/15/2018 Secondary LORI Up Fowler Insurance:CARESOURCEP CHROSTOWSKIDOB: Community olicy Number: [id number] Hospital [id number] Repository Date:2018-02-15P O [address]ATTN: [place] [address]OZ: 02/15/2018 Tertiary NOT GIVENUNK Fowler Insurance:SELF PAY [facility] Number: Effective Repository Date:2018-02-15 12/14/2017 LORI Up Primary LORI Up Soraida [id number] Insurance:CARESOURCEP CHROSTOWSKIDOB: Community BERNADINE LNAPT oly Number: [id number], [place] [id number] Repository 13396Ivv: [phone]) Date:2017-09-21P O [phone] () [address]ATTN: [place] [address]KY: 12/14/2017 Secondary NOT GIVENUNK Soraida Insurance:SELF PAY [facility] Number: Effective Repository Date:2017-12-07 11/25/2017 LORI Up Primary LORI Up Soraida [id number] Insurance:CARESOURCEP CHROSTOWSKIDOB: Community BERNADINE LNAPT olicy Number: [id number], [place] [id number] Repository [address]Snq: ([phone]) Date:2017-11-25P O [phone] () [address]ATTN: [place] [address]XG: 11/25/2017 Secondary NOT GIVENUNK Soraida Insurance:SELF PAY [facility] Number: Effective Repository Date:2017-11-25 11/21/2017 LORI Up Primary LORI Up Soraida [id number] Insurance:CARESOURCEP CHROSTOWSKIDOB: Community BERNADINE LNAPT olicy Number: [id number], [place] [id number] Repository 14[address]Ybw: (330) Date:2017-11-21P O [phone] () [address]ATTN: [place] [address]LU: 11/21/2017 Secondary NOT GIVENUNK Soraida Insurance:SELF [facility]Y [facility] Number: Effective Repository Date:2017-11-21 11/01/2017 LORI Up [facility] LORI Up Soraida [id number] Insurance:CARESOURCEP CHROSTOWSKIDOB: Community BERNADINE LNAPT olicy Number: [id number], [place] [id number] Repository 575[address]Yhm: (330) Date:2017-11-01P O [phone] () [address]ATTN: [place] [address]EI: 11/01/2017 Secondary NOT GIVENUNK Fowler Insurance:SELF PAY [facility] Number: Effective Repository Date:2017-11-01 10/29/2017 LORI Up [facility] LORI Up Fowler [id number] Insurance:CARESOURCEP CHROSTOWSKIDOB: Community BERNADINE LNAPT olicy Number: [id number], [place] [id number] Repository [address]63[address]Vdc: (330) Date:2017-10-29P O [phone] () [address]ATTN: [place] [address]UN: 10/29/2017 Secondary NOT GIVENUNK Fowler Insurance:SELF PAY [facility] Number: Effective Repository Date:2017-10-29 10/26/2017 LORI Up [facility] LORI Vegaoster [id number] Insurance:CARESOURCEP CHROSTOWSKIDOB: Community BERNADINE LNAPT olicy Number: [id number], [place] [id number] Repository 16145Vaz: (330) Date:2017-09-21P O [phone] (HP) [address]ATTN: [place] [address]RW: 10/26/2017 Secondary NOT GIVENUNK Fowler Insurance:SELF PAY [facility] Number: Effective Repository Date:2017-10-19 09/21/2017 LORI Up [facility] LORI Up Soraida [id number] Insurance:CARESOURCEP CHROSTOWSKIDOB: Community BERNADINE LNAPT olicy Number: [id number], [place] [id number] Repository [address]2316Sky: (330) Date:2017-09-12 O [phone] (HP) [address]ATTN: [place] [address]JG: 09/21/2017 Secondary NOT GIVENUNK Fowler Insurance:SELF PAY [facility] Number: Effective Repository Date:2017-09-15 09/17/2017 LORI Up [facility] LORI Up Soraida [id number] Insurance:CARESOURCEP CHROSTOWSKIDOB: Community BERNADINE LNAPT olicy Number: [id number], [place] [id number] Repository [address]Yau: (330) Date:2017-09-17P O [phone] (HP) [address]ATTN: [place] [address]KX: 09/17/2017 Secondary NOT GIVENUNK Soraida Insurance:SELF PAY [facility] Number: Effective Repository Date:2017-09-17 09/15/2017 LORI Up [facility] LORI Up Fowler [id number] Insurance:CARESOURCEP CHROSTOWSKIDOB: Community BERNADINE LNAPT olicy Number: [id number], [place] [id number] Repository [address]Vvw: (330) Date:2017-09-15P O [phone] (HP) [address]ATTN: [place] [address]CE: 09/15/2017 Secondary NOT GIVENUNK Fowler Insurance:SELF PAY [facility] Number: Effective Repository Date:2017-09-15 08/29/2017 LORI Up [facility] LORI Up Soraida [id number] Insurance:CARESOURCEP CHROSTOWSKIDOB: Community BERNADINE LNAPT olicy Number: [id number], [place] [id number] Repository [address]Rio: (330) Date:2017-08-29P O [phone] (HP) [address]ATTN: [place] [address]RO: 08/29/2017 Secondary NOT GIVENUNK Soraida Insurance:SELF PAY [facility] Number: Effective Repository Date:2017-08-29 08/07/2017 LORI Up [facility] LORI Up Soraida [id number] Insurance:CARESOURCEP CHROSTOWSKIDOB: Community BERNADINE LNAPT olicy Number: [id number], [place] [id number] Repository [address]13[address]Syo: (330) Date:2017-08-07P O [phone] (HP) [address]ATTN: [place] [address]RH: 08/07/2017 Secondary NOT GIVENUNK Fowler Insurance:SELF PAY [facility] Number: Effective Repository Date:2017-08-07 06/16/2017 LORI Up [facility] LORI Up Fowler [id number] Insurance:CARESOURCEP CHROSTOWSKIDOB: Community BERNADINE LNAPT olicy Number: [id number], [place] [id number] Repository [address]Yng: (330) Date:2017-06-05P O [phone] (HP) [address]ATTN: [place] [address]FN: 06/16/2017 Secondary NOT GIVENUNK Fowler Insurance:SELF PAY [facility] Number: Effective Repository Date:2017-06-05 05/28/2017 LORI Up [facility] LORI Up Soraida [id number] Insurance:CARESOURCEP CHROSTOWSKIDOB: Community BERNADINE LNAPT olicy Number: [id number], [place] [id number] Repository 727[address]Ahn: (330) Date:2017-05-28P O [phone] (HP) [address]ATTN: [place] [address]PY: 05/28/2017 Secondary NOT GIVENUNK Soraida Insurance:SELF PAY [facility] Number: Effective Repository Date:2017-05-28 05/23/2017 LORI Up [facility] LORI Up Fowler [id number] Insurance:CARESOURCEP CHROSTOWSKIDOB: Community BERNADINE LNAPT olicy Number: [id number], [place] [id number] Repository [address]17[address]Hnr: (330) Date:2017-05-23P O [phone] (HP) [address]ATTN: [place] [address]AZ: 05/23/2017 Secondary NOT GIVENUNK Fowler Insurance:SELF PAY [facility] Number: Effective Repository Date:2017-05-23 04/20/2017 LORI Up [facility] LORI Up Soraida [id number] Insurance:CARESOURCEP CHROSTOWSKIDOB: Community BERNADINE LNAPT olicy Number: [id number], [place] [id number] Repository 98467Kpc: (330) Date:2017-04-11P O [phone] () [address]ATTN: [place] [address]RA: 04/20/2017 Secondary NOT GIVENUNK Sroaida Insurance:SELF PAY [facility] Number: Effective Repository Date:2017-04-11 04/12/2017 LORI Up [facility] LORI Up Fowler [id number] Insurance:CARESOURCEP CHROSTOWSKIDOB: Community BERNADINE LNAPT olicy Number: [id number], [place] [id number] Repository 29[address]Cbe: (330) Date:2017-04-06P O [phone] (HP) [address]ATTN: [place] [address]WM: 04/12/2017 Secondary NOT GIVENUNK Fowler Insurance:SELF PAY [facility] Number: Effective Repository Date:2017-04-06 04/11/2017 LORI Up Primary LORI Quigley [id number] Insurance:CARESOURCEP CHROSTOWSKIDOB: Community BERNADINE LNAPT olicy Number: [id number], [place] [id number] Repository 99[address]Cql: (330) Date:2017-03-29P O [phone] () [address]ATTN: [place] [address]WE: 04/11/2017 Secondary NOT GIVENUNK Fowler Insurance:SELF PAY [facility] Number: Effective Repository Date:2017-03-29 04/06/2017 Lori Up Primary LORI Quigley [id number] Insurance:CARESOURCEP CHROSTOWSKIDOB: Community [address] olicy Number: [id number] Christi, [place] [id number] Repository 577[address]Joj: (330) Date:2017-03-07P O [phone] () [address]ATTN: [place] [address]AZ: 04/06/2017 Secondary NOT GIVENUNK Soraida Insurance:SELF PAY [facility] Number: Effective Repository Date:2017-03-07
== END 2018-02-27 14:11 | disposition home or self-care (01) ==
LOC: SDC 07:22 → AC 07:23
PROVIDERS: Anesthesiology; Family Provider Family Medicine; PCP Family Medicine; Referring Provider Podiatrist Foot & Ankle Surgery; Visit Provider Podiatrist Foot & Ankle Surgery
DX: S82.862A Displaced Maisonneuve's fracture of left leg, initial encounter for closed fracture (principal); Z86.14 Personal history of Methicillin resistant Staphylococcus aureus infection; E11.9 Type 2 diabetes mellitus without complications; W18.30XA Fall on same level, unspecified, initial encounter; Y93.9 Activity, unspecified; Y92.89 Other specified places as the place of occurrence of the external cause; Y99.0 Civilian activity done for income or pay; K21.9 Gastro-esophageal reflux disease without esophagitis; I10 Essential (primary) hypertension; J45.909 Unspecified asthma, uncomplicated; I27.20 Pulmonary hypertension, unspecified; E11.622 Type 2 diabetes mellitus with other skin ulcer; E11.40 Type 2 diabetes mellitus with diabetic neuropathy, unspecified; D50.9 Iron deficiency anemia, unspecified; N28.9 Disorder of kidney and ureter, unspecified; R06.02 Shortness of breath; M25.569 Pain in unspecified knee
CPT/HCPCS: 01480; 27758; 73590; 73610; 76000; 82962; 85610; 85730; C1713; J7120

== ENCOUNTER 2018-03-06 21:42 | Inpatient (IN) | payer MEDICAID, SELFPAY ==
[2018-02-27 07:54] VITALS: BMI 40.6
[2018-03-06] VITALS (9 sets, daily range): BP systolic 141–211; BP diastolic 79–119; PULSE 88–105; RESP 16–18; TEMP 36.1; O2SAT 93–97; BMI 42.9
--- NOTE | 2018-03-06 21:46 | EKG12_ITS ---
Test Reason : HEADACHE/HTN Blood Pressure : / mmHG Vent. Rate : 092 BPM Atrial Rate : 092 BPM P-R Int : 172 ms QRS Dur : 084 ms QT Int : 374 ms P-R-T Axes : 051 -09 034 degrees QTc Int : 462 ms Normal sinus rhythm Normal ECG Confirmed by UMA HARO, SHEELA ([id number]), teacher theater arts TOOTIE CAGE ([id number]) on 03/09/2018 2:29:45 PM Referred By: OUSMANE Confirmed By:SHEELA EATON MD
--- NOTE | 2018-03-06 21:46 | CT_ITS ---
STUDY: CT BRAIN WITHOUT CONTRAST REASON FOR EXAM: Female, 52 years old. Slurred speech, sudden onset headache with nausea RADIATION DOSAGE (If Supplied By Facility): CTDIvol = ( 60.81 ) mGy, DLP = ( 1089.89 ) mGycm TECHNIQUE: Transaxial CT imaging of the brain was performed without administration of intravenous contrast material. Individualized dose optimization techniques were used for this CT. COMPARISON: None. FINDINGS: Normal soft tissue structures. Normal calvarium. Normal size ventricles and extra-axial spaces for the patient's age. Normal white matter tracts of the cerebral hemispheres. Normal basal ganglia and thalami. Normal brainstem. Normal cerebellum. There is no intracranial hemorrhage. There are no findings of an acute ischemic infarction. Normal visualized paranasal sinuses. CT/Brain/Head without Contrast IMPRESSION: Normal unenhanced CT scan of the brain. N.B. : The above information has been verbally conveyed by Flaco Almonte MD to Dr Toni MD, on 03/06/2018 22:13:53 (ET). Electronically Signed: Flaco Almonte MD at 22:14 EST , Service support ,
--- NOTE | 2018-03-06 21:55 | RAD_ITS ---
STUDY: X-RAY CHEST REASON FOR EXAM: Female, 52 years old. Headache, hypertension TECHNIQUE: Single AP portable view of the chest. 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 The lungs are clear and expanded. There is no demonstrated pleural abnormality. There is mild cardiac enlargement. Normal mediastinum and libby. Normal visualized pulmonary arteries. Normal visualized aortic arch and descending thoracic aorta. Normal visualized thoracic spine. Normal visualized ribs, clavicles, and shoulders. There is no demonstrated abnormality of the visualized soft tissue structures of the upper abdomen. RAD/Chest 1 View IMPRESSION: Mild cardiomegaly. No acute cardiopulmonary disease process is seen. Electronically Signed: Flaco Almonte MD at 22:38 EST , Service support ,
[2018-03-06 22:22] LABS: Absolute Lymphocyte Count 1.48 X10^3/ul (0.83-4.51); Absolute Neutrophil Count 6.7 X10^3/uL (2.0-7.7); Basophil# 0.04 X10^3/uL; Basophil% 0.4 % (0-1); Eosinophil# 0.21 X10^3/uL; Eosinophils% 2.3 % (0-5); Hemoglobin 10.8 g/dl (12.0-15.0); Lymphocyte # 1.48 X10^3/ul (4.0); Lymphocyte % 16.5 % (19-41); Mean Corp Hgb Conc 30.9 g/gl (32-36); Mean Corpuscular Hgb 27.6 pg (27.0-32.0); Mean Corpuscular Volume 89.3 fL (81-99); Mean Platelet Vol. 10.8 fl (6.2-12.0); Monocyte# 0.53 X10^3/uL; Monocyte% 5.9 % (0-10); Neutrophil # 6.68 X10^3/uL (2.7-7.7); Neutrophil % 74.8 % (47-70); Platelet Count 249 K/mm3 (150-450); RBC Distribution Width SD 45.7 fl (35.1-43.9); Red Blood Count 3.92 M/mm3 (4.2-5.4)
[2018-03-06 22:25] LABS: POSITIVE COUNT NO; POSITIVE DIFFERENTIAL NO; POSITIVE MORPHOLOGY NO
--- NOTE | 2018-03-06 22:38 | ED.DCSUM_ITS ---
- ER Visit Summary Date of Service: 03/06/18 Chief Complaint: Bad headache and high blood pressure History of Present Illness: The patient is a 52 F who arrived by ambulance because of severe headache, elevated blood pressure with systolic of 228, slurred speech. Onset is unknown. She does report history of diabetes and hypertension. She had recent surgery left tibia and is in a posterior splint. She does report trouble with vision. She denies ringing or ears or decreased hearing. She denies neck pain or neck stiffness. She denies chest pain, back pain shortness of breath, orthopnea or PND. She does report nausea without vomiting diarrhea. She denies dysuria, frequency, urgency hematuria. She denies tingling but reports that she has greater sensation on the right. Past medical history diabetes and hypertension. Arranging. Allergies noted. She apparently lives alone. Physical Examination: Initial blood pressure in the emergency room was 211/119. She is not alert. She stated the month was February. She reports altered sensation on the left and has inattention to the left. She also had difficulty recognizing objects and trouble with speech. She had trouble with both fluency and slurred speech. Pupils equal round reactive paradoxic muscle intact. Sclerae anicteric. TMs normal. Trachea midline. There is no carotid bruit. Heart is regular without murmur, gallop or rub. Lungs are clear to auscultation. Pulses are noted upper and lower extremity and symmetric. NIH is 7. There is no clonus or Babinski sign noted. Test Results: CT of the head interpreted by radiologist reviewed by me as negative. Portable chest x-ray interpreted by me as negative. CBC unremarkable mild anemia. Coags are not available because the hemolyzed. Basic metabolic panel reveals an elevated BUN/creatinine of 33 and 1.25. Glucose is 177. Emergency Department Course and Treatment: With abrupt onset of headache elevated blood pressure will need to obtain CAT scan to evaluate for intracranial bleed. This may represent a stroke. Since she is diabetic blood sugar was checked and is greater than 180. She acknowledged that she is compliant with her blood pressure meds. Appropriate blood work was obtained. The onset of her symptoms is unknown. She is not a thrombotic candidate because of the blood pressure and the fact that the onset of her symptoms is unknown. Treatment Plan: Most recent blood pressure is 184/119. She received 10 mg of labetalol. Disposition: Admit PCU Impression: 1. CVA 2. Hypertensive urgency 3. Hyperglycemia and diabetic This note was generated with [employer] dictation software. It may contain incorrect words, spelling, and punctuation that were not noted in review of the chart prior to signing ED Disposition - Plan for ED Patient: Chief Complaint: Neuro S/Sx Referrals: John Castillo MD [Primary Care Provider] -
[2018-03-06 22:42] LABS: Anion Gap 7 (5-15); BUN 33 mg/dL (7-18); BUN/Creat Ratio 26.4 RATIO (10-20); Calcium,Total 8.6 mg/dL (8.5-10.1); Chloride 111 mmol/L (98-107); Creatinine, Serum 1.25 mg/dL (0.55-1.02); EST Glomerular Filtration Rate 48 mL/min (>60); Est Glom Filt Rate - Afr Amer 58 mL/min (>60); Estimated Creatinine Clearance 47.91 ml/min; Glucose 177 mg/dL (74-106); Potassium 4.6 mmol/L (3.5-5.1); Sodium Level 143 mmol/L (136-145)
[2018-03-06 22:45] LABS: Bedside Glucose 156 mg/dL (70-110)
[2018-03-06] MEDS: Labetalol 20 MG/4 ML Vial 10 MG IV (22:45)
[2018-03-06 22:48] LABS: Prothrombin Time (Protime)PT. 12.9 SECONDS (11.7-14.9)
[2018-03-06 22:49] LABS: Partial Thromboplast Time 26.3 Seconds (24.1-36.2)
[2018-03-06] MEDS: Ondansetron 4 MG/2 ML Vial IV (23:21)
[2018-03-07] VITALS (19 sets, daily range): BP systolic 147–219; BP diastolic 58–98; PULSE 78–104; RESP 14–18; TEMP 36.7–37.1; O2SAT 94–96; BMI 41.5; BMI 42.9
[2018-03-07] MEDS: 0.9% Normal Saline 1,000 ML 100 ML IV ×2 (01:03→14:24)
[2018-03-07] MEDS: HYDROmorphone 0.5 MG/0.5 ML SYRINGE IV (01:06)
--- NOTE | 2018-03-07 01:08 | PCM.HP.STD ---
Problem List (1) Hypertensive urgency Status: Acute (2) Dehydration Status: Acute (3) SOB (shortness of breath) on exertion Status: Chronic (4) DARCY (obstructive sleep apnea) Status: Chronic Comment: CPAP 12 cm of water (5) Amputated toe Status: Resolved (6) H/O: hysterectomy Status: Resolved (7) Iron deficiency anemia Status: Chronic (8) Diarrhea in adult patient Status: Resolved Comment: chronic intermittent diarrhea-etiology unknown (9) Gait instability Status: Chronic (10) Diabetic foot ulcer Status: Resolved Qualifiers: Diabetes mellitus type: type 2 Laterality: left Qualified Code(s): E11.621 - Type 2 diabetes mellitus with foot ulcer; L97.529 - Non-pressure chronic ulcer of other part of left foot with unspecified severity (11) Venous insufficiency Status: Chronic (12) History of amputation of hallux Status: Chronic (13) GERD (gastroesophageal reflux disease) Status: Chronic Qualifiers: Esophagitis presence: esophagitis presence not specified Qualified Code(s): K21.9 - Gastro-esophageal reflux disease without esophagitis (14) Hypertension Status: Chronic Qualifiers: Hypertension type: essential hypertension Qualified Code(s): I10 - Essential (primary) hypertension (15) Delayed wound healing Status: Resolved (16) Edema of left lower extremity Status: Resolved (17) MRSA (methicillin resistant staph aureus) culture positive Status: Chronic Comment: left great toe (18) Chronic ulcer of left foot with necrosis of muscle Status: Resolved (19) Osteomyelitis of ankle or foot Status: Resolved Comment: left great toe (20) Malnutrition Status: Resolved (21) Diabetes mellitus with polyneuropathy Status: Chronic Qualifiers: Diabetes mellitus type: type 2 (22) Vaginal candidiasis Status: Resolved (23) Diabetes mellitus type 2, uncontrolled Status: Chronic (24) Chronic ulcer of right great toe with fat layer exposed Status: Resolved (25) Diabetic ulcer of left great toe Status: Resolved Comment: with osteomylitis of left great toe (26) Puncture wound of toe of left foot Status: Resolved Qualifiers: Encounter type: subsequent encounter Qualified Code(s): S91.139D - Puncture wound without foreign body of unspecified toe(s) without damage to nail, subsequent encounter (27) Cellulitis of toe of left foot Status: Resolved History of Present Illness Date of Admission: 03/07/18 Chief Complaint: RENTERIA The patient is a 52 year old F with a past medical history of GERD, diabetes mellitus type 2, hypertension, morbid obesity, diabetic peripheral polyneuropathy and multiple diabetic foot wounds who presented to the emergency department at [facility] on 03/06/2018 complaining of a severe headache. The headache was associated with nausea and started at approximately 3 PM. The RENTERIA started in the left eye and left face and did not generalize. She can not recall if she had any visual disturbances. She was noted to have slurred speech and confusion by the paramedics. She has recently had surgery on her left leg for a tibia fracture and is in a posterior splint. She denied fever, chills, chest pain, shortness of breath, vomiting, abdominal pain. There is mention in the ER physician's note of decreased sensation on the left side and some slurred speech. Vital signs at presentation to the emergency room were temp 97 ?F, pulse rate 97, blood pressure 196/117, respiratory rate 18 and she was 93-97% saturated on room air. White blood cell count was 9.0 with 75% neutrophils. Hemoglobin was 10.8 which is within her baseline. Platelets were normal. Electrolytes were unremarkable and the BUN was 33 with a creatinine of 1.25. Creatinine in May [address] of the head was normal. Chest x-ray showed no infiltrates, pulmonary vascular congestion or pleural effusions. She received 10 mg of IV labetalol in the emergency room and her blood pressure dropped to 141/79. She recently had surgery and her father . Admits to being under increased stress recently. She denies any hx of migraines - personal. Her dtr gets RENTERIA's with her periods. Past Medical History Past Medical History (Chronic Problems): Chronic Problems (Last Reviewed 03/07/18 @ 01:15 by Jeovanny Nicolas DO) SOB (shortness of breath) on exertion (Chronic) DARCY (obstructive sleep apnea) (Chronic) CPAP 12 cm of water Iron deficiency anemia (Chronic) Gait instability (Chronic) Venous insufficiency (Chronic) History of amputation of hallux (Chronic) GERD (gastroesophageal reflux disease) (Chronic) Hypertension (Chronic) MRSA (methicillin resistant staph aureus) culture positive (Chronic) left great toe Diabetes mellitus with polyneuropathy (Chronic) Diabetic neuropathy (Chronic) Diabetes mellitus type 2, uncontrolled (Chronic) Medical History: Medical History (Last Reviewed 03/07/18 @ 01:15 by Jeovanny Nicolas DO) H/O: hysterectomy (Resolved) Z98.890, Z90.710 Iron deficiency anemia (Acute) D50.9 Diarrhea in adult patient (Chronic) R19.7 chronic intermittent diarrhea-etiology unknown Gait instability (Acute) R26.81 Diabetic foot ulcer (Chronic) E11.621, L97.509 Venous insufficiency (Acute) History of amputation of hallux (Acute) Z89.419 GERD (gastroesophageal reflux disease) (Chronic) K21.9 Hypertension (Chronic) I10 Delayed wound healing (Acute) T14.8 Edema of left lower extremity (Chronic) R60.0 MRSA (methicillin resistant staph aureus) culture positive (Chronic) Z22.322 left great toe 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) L97.523 Osteomyelitis of ankle or foot (Chronic) M86.9 left great toe Malnutrition (Chronic) E46 Diabetes mellitus with polyneuropathy (Chronic) E11.42 Vaginal candidiasis (Acute) B37.3 Diabetic neuropathy (Chronic) E11.40 Diabetes mellitus type 2, uncontrolled (Chronic) E11.65 Chronic ulcer of right great toe with fat layer exposed (Chronic) L97.512 Diabetic ulcer of left great toe (Chronic) E11.621, L97.529 with osteomylitis of left great toe Puncture wound of toe of left foot (Chronic) S91.139A Cellulitis of toe of left foot (Acute) L03.032 Allergies Latex, Natural Rubber Allergy (Verified 03/06/18 21:46) Rash Penicillins Allergy (Verified 03/06/18 21:46) Swelling lactose Adverse Reaction (Verified 03/06/18 21:46) Diarrhea Home Medications: Ambulatory Orders Medication Instructions Recorded albuterol sulfate HFA 90 2 puff INHALATION Q4H PRN g 04/11/17 mcg/actuation aerosol inhaler Alogliptin Benzoate [Alogliptin] 25 mg PO DAILY 05/28/17 Basaglmarkel Mikepen U-100 46 unit SQ QHS 05/28/17 Montelukast [Singulair] 10 mg PO QHS 05/28/17 Omeprazole 40 mg PO DAILY 05/28/17 Bifidobacterium infantis 4 mg 4 mg PO DAILY 06/16/17 capsule furosemide 20 mg tablet 40 mg PO BID tab 06/21/18 glipizide 5 mg tablet 10 mg PO DAILY tab 09/21/17 lisinopril 40 mg tablet 40 mg PO QDAY 09/21/17 loratadine 10 mg capsule 10 mg PO QDAY #30 cap 09/21/17 metoprolol tartrate 25 mg tablet 25 mg PO BID 09/21/17 fluticasone 100 mcg-vilanterol 25 1 inh INHALATION Q24H #60 ea 12/14/17 mcg/dose powder for inhalation Ibuprofen 600 mg PO DAILY PRN 02/21/18 Lactobacillus Acidophilus 1 each PO DAILY 02/21/18 [Acidophilus] Doxycycline [Vibramycin] 100 mg PO BID 14 Days #28 cap 02/27/18 Loperamide [Imodium] 2 mg PO BID PRN 03/07/18 Surgical History: Surgical History (Last Reviewed 03/07/18 @ 01:15 by Jeovanny Nicolas DO) Amputated toe (Resolved) Z89.429 Surgical History: hysterectomy, - - 2 c/s Psychiatric History: No pertinent psych hx CORPORATE HEALTH CONSULTANT History: No pertinent CORPORATE HEALTH CONSULTANT history Lives: Alone Smoking Status: Never smoker Tobacco Use: Non-smoker Alcohol: Rare Drugs: None - *Family History Sibling History Items: Diabetes, Heart Disease, Hypertension Paternal History Items: Diabetes, Heart Disease, Hypertension Maternal History Items: Diabetes, Hypertension, - - Obesity Review of Systems Constitutional: Denies: Anorexia, Chills, Fever, Weakness, Weight Change Eyes: Reports: Blurred vision HEENT: Reports: Dysphasia. Denies: Difficulty Hearing, Difficulty Swallowing, Head Aches, Sinus Congestion, Sinus Drainage, Sore Throat Cardiovascular: Denies: Chest Pain, Edema, Heaviness, Light Headedness, Palpitations Respiratory: Denies: Cough, Shortness of breath at rest, Sputum production Gastrointestinal: Reports: Nausea - with the RENTERIA. Denies: Abdominal Pain, Vomiting Genitourinary: Denies: Dysuria Gynecological: Denies: Breast symptoms, Vaginal discharge Musculoskeletal: Reports: Leg Pain - left. Denies: Joint Pain, Joint Tenderness Skin: Denies: Rash, Wounds Neurological: Denies: Numbness, Tingling, Focal weakness Psychiatric: Denies: Anxiety, Depression, Homicidal Ideations, Suicidal Ideations Hematologic/ Lymphatic: Denies: Easy Bruising, Easy Bleeding VTE Information - Inpt Only VTE Present on Admission: No VTE Mechan Device Prophylaxis: SCD's VTE Pharm Prophylaxis ordered?: Yes Patient Problems: Active and Suspected Problems (Last Reviewed 03/07/18 @ 01:15 by Jeovanny Nicolas DO) Hypertensive urgency (Acute) Dehydration (Acute) - Physical Exam General: Alert, Oriented x3, Cooperative, No apparent distress, Well developed, Well nourished HEENT: Atraumatic, PERRLA, EOMI, Normocephalic Oral: Dry Mucosa Neck: Supple, No JVD, Trachea Midline, Carotid Bruit, Right Lungs: Clear to auscultation, Normal air movement, No rhonchi, No wheeze, No rales Cardiovascular: Regular rate, Regular Rhythm, Normal S1, Normal S2, No murmurs, No Ectopic Activity, No rub noted, No Gallop Abdomen: Bowel Sounds Present, Soft, Non Tender Extremities: No clubbing, No cyanosis, No edema, No Calf Tenderness, - - the left leg is in a posterior splint and wrapped with CHERRY. she has intact sensation of the toes Skin: No rashes, No breakdown Musculoskeletal: No Muscle Wasting Neurological: Cranial nerves II-XII grossly intact, Neuro grossly intact, Motor Exam 5/5 strength throughout Psych/Mental Status: Normal Affect, Appropriate Vital Signs Temp Pulse Resp BP Pulse Ox 98.5 F 102 H 16 219/88 H 96 03/07/18 01:01 03/07/18 01:01 03/07/18 01:01 03/07/18 01:02 03/07/18 01:01 Oxygen Delivery Method Room Air Weight: 253 lb 4.978 oz Body Mass Index (BMI) 41.5 Finger Stick Blood Glucose 156 Laboratory Tests Past 24 Hrs 03/06/18 03/06/18 03/06/18 22:10 22:10 22:10 WBC 9.0 RBC 3.92 L Hgb 10.8 L Hct 35.0 L MCV 89.3 MCH 27.6 MCHC 30.9 L RDW 14.0 RDW Differential 45.7 H Plt Count 249 MPV 10.8 Immature Gran % (Auto) 0.100 Neut % (Auto) 74.8 H Lymph % (Auto) 16.5 L Leslie % (Auto) 5.9 Eos % (Auto) 2.3 Baso % (Auto) 0.4 Absolute Neuts (auto) 6.7 Absolute Lymphs (auto) 1.48 Total Counted Not Reportable PT Cancelled INR Cancelled APTT Cancelled Sodium 143 Potassium 4.6 Chloride 111 H Carbon Dioxide 25.0 Anion Gap 7 BUN 33 H Creatinine 1.25 H Estim Creat Clear Calc 47.91 Est GFR (MDRD) Af Amer 58 L Est GFR (MDRD) Non-Af 48 L BUN/Creatinine Ratio 26.4 H Glucose 177 H Calcium 8.6 Troponin I < 0.015 03/06/18 22:35 WBC RBC Hgb Hct MCV MCH MCHC RDW RDW Differential Plt Count MPV Immature Gran % (Auto) Neut % (Auto) Lymph % (Auto) Leslie % (Auto) Eos % (Auto) Baso % (Auto) Absolute Neuts (auto) Absolute Lymphs (auto) Total Counted PT 12.9 INR 1.0 APTT 26.3 Sodium Potassium Chloride Carbon Dioxide Anion Gap BUN Creatinine Estim Creat Clear Calc Est GFR (MDRD) Af Amer Est GFR (MDRD) Non-Af BUN/Creatinine Ratio Glucose Calcium Troponin I POC Glucose 03/06/18 22:07 POC Glucose 156 H Assessment/Plan All Active Problems (Last Reviewed 03/07/18 @ 01:15 by Jeovanny Nicolas DO) Hypertensive urgency (Acute) Dehydration (Acute) Amputated toe (Resolved) H/O: hysterectomy (Resolved) Diarrhea in adult patient (Resolved) Diabetic foot ulcer (Resolved) Delayed wound healing (Resolved) Edema of left lower extremity (Resolved) 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 Impressions 1. hypertensive urgency with cephalgia and altered mental status 2. DM II 3. HTN 4. dehydration 5. anemia 6. GERD 7. Asthma 8. R carotid bruit RENTERIA resolved after 0.5 mg Dilaudid Neuro exam is currently non-focal Will get an MRI in the AM and MRA of the head and neck Consult neurology in the AM Hydrate Recheck lab in the AM Check a HGBA1C - she usually only checks her BS in the AM stroke protocol initiated ASA 325 mg now and then 81 mg daily DVT prophylaxis with Lovenox and SCD's PT,OT and ST consults ordered Code Visit Inpatient E&M: 98536 Init Hosp L3
[2018-03-07 04:44] LABS: Thyroid Stim Hormone (TSH) 1.03 uIU/mL (0.358-3.74)
[2018-03-07 04:53] LABS: Absolute Lymphocyte Count 1.39 X10^3/ul (0.83-4.51); Basophil# 0.04 X10^3/uL; Basophil% 0.3 % (0-1); Eosinophil# 0.02 X10^3/uL; Eosinophils% 0.2 % (0-5); Hematocrit 31.7 % (37-47); Hemoglobin 9.8 g/dl (12.0-15.0); Lymphocyte # 1.39 X10^3/ul (4.0); Lymphocyte % 11.7 % (19-41); Mean Corp Hgb Conc 30.9 g/gl (32-36); Mean Corpuscular Hgb 28.3 pg (27.0-32.0); Mean Corpuscular Volume 91.6 fL (81-99); Mean Platelet Vol. 11.3 fl (6.2-12.0); Monocyte# 0.43 X10^3/uL; Monocyte% 3.6 % (0-10); Neutrophil % 83.9 % (47-70); Platelet Count 237 K/mm3 (150-450); RBC Distribution Width CV 13.8 % (11.6-14.6); RBC Distribution Width SD 45.1 fl (35.1-43.9); Red Blood Count 3.46 M/mm3 (4.2-5.4); White Blood Count 11.9 K/mm3 (4.4-11.0)
[2018-03-07 04:54] LABS: POSITIVE COUNT NO; POSITIVE DIFFERENTIAL NO; POSITIVE MORPHOLOGY NO
[2018-03-07 05:12] LABS: ALB/GLOB Ratio 0.6 RATIO (0.9-2.4); AST(SGOT) 20 U/L (15-37); Alanine Aminotransfer ALT/SGPT 17 U/L (13-56); Albumin, Serum 2.5 g/dL (3.2-5.0); Alkaline Phosphatase 93 U/L (45-117); Anion Gap 9 (5-15); BUN 38 mg/dL (7-18); BUN/Creat Ratio 22.5 RATIO (10-20); Calcium,Total 7.9 mg/dL (8.5-10.1); Chloride 113 mmol/L (98-107); Cholesterol 148 mg/dL (200); Creatinine, Serum 1.69 mg/dL (0.55-1.02); EST Glomerular Filtration Rate 34 mL/min (>60); Est Glom Filt Rate - Afr Amer 41 mL/min (>60); Estimated Creatinine Clearance 35.44 ml/min; Glucose 251 mg/dL (74-106); High Density Lipoprotein 46 mg/dL; Magnesium 1.7 mg/dL (1.6-2.6); Phosphorus 4.4 mg/dL (2.5-4.9); Potassium 4.9 mmol/L (3.5-5.1); Protein, Total 6.5 g/dL (6.4-8.2); Sodium Level 145 mmol/L (136-145); Triglycerides 77 mg/dL; Very Low Density Lipoprotein 15 mg/dL (5-40)
[2018-03-07] MEDS: Enoxaparin 40 MG/0.4 ML Syringe SC (05:12)
[2018-03-07] MEDS: Aspirin 325 MG Tablet PO (05:12)
--- NOTE | 2018-03-07 05:55 | MRI_ITS ---
STUDY: MRA OF THE HEAD WITHOUT CONTRAST REASON FOR EXAM: Female, 52 years old. Headache, confusion and slurred speech since yesterday. TECHNIQUE: 3-D [id number] (TOF) imaging was performed with MIPs. The study was performed unenhanced. COMPARISON: None. FINDINGS: Normal bilateral petrous carotid arteries. Normal right cavernous carotid artery with a normal supraclinoid bifurcation. Normal left cavernous carotid artery with a normal supraclinoid bifurcation. Normal right A1 segment of the anterior cerebral artery. Normal left A1 segment of the anterior cerebral artery. Normal intact anterior communicating artery (ACOM). Normal bilateral A2 segments of the anterior cerebral arteries. Normal right M1 and M2 segments of the middle cerebral arteries, with a normal M1 bifurcation. Normal left M1 and M2 segments of the middle cerebral arteries, with a normal M1 bifurcation. Normal right posterior communicating artery (PCOM). Normal left posterior communicating artery (PCOM). Normal bilateral vertebral arteries. Normal basilar artery with a normal basilar bifurcation. The visualized bilateral superior cerebellar (SCA) arteries are normal. Normal bilateral P1, P2 and visualized P3 segments of the posterior cerebral arteries. There is no demonstrated aneurysm of the augustine of [place]. There is no major vessel occlusion or hemodynamically significant stenosis. There is no demonstrated abnormality of the visualized brain. MRI/MRA Head ONLY without Contrast IMPRESSION: Normal MRA of the head Electronically Signed: Crescencio Buenrostro MD at 11:01 EST , Service support ,
--- NOTE | 2018-03-07 05:55 | ECHOD_ITS ---
Reason For Study: TIA/CVA Procedure This was a 2D Doppler, Color Flow transthoracic echocardiogram. Exam performed portable in patient room. Left Ventricle Normal size and thickness. The estimated ejection fraction is 65 %. Stage 1 diastolic dysfunction. No regional wall motion abnormalities noted. Right Ventricle Mildly dilated right ventricle. Normal systolic function. Atria Normal left atrium. Normal right atrium. Normal atrial septum. Bubble contrast study negative for right to left interatrial shunt. Mitral Valve The mitral valve is structurally normal. No prolapse or stenosis seen. Trivial eccentric mitral valve insufficiency. Tricuspid Valve Normal tricuspid valve. Trivial tricuspid valve insufficiency. Right ventricular systolic pressure estimated to be 39 mmHg. Mild pulmonary hypertension. Aortic Valve Normal aortic valve. Trisinus/trileaflet aortic valve. Pulmonic Valve The pulmonic valve is not well visualized. Great Vessels Normal aortic root. Normal arch. Normal inferior vena cava. Inferior vena cava collapse with sniff. Pericardium/Pleural Trivial pericardial effusion. There are no echocardiographic indications of cardiac tamponade. Medication Performed a rapid injection of agitated mix of 9 cc saline and 1cc air to assess for atrial septal defect. MMode/2D Measurements & Calculations LVIDd: 4.5 cm IVSd: 1.2 cm Ao root diam: 3.0 cm LVIDs: 2.7 cm LVPWd: 1.5 cm RVDd: 3.9 cm FS: 39.4 % LAV(MOD-bp): 50.5 ml EDV(MOD-sp4): 119.2 ml EDV(MOD-sp2): 108.3 ml LAV(MOD-bp) Indexed: 23.1 ml/m2 ESV(MOD-sp4): 41.9 ml EF(MOD-sp2): 55.8 % LAV(MOD-sp2): 48.7 ml EF(MOD-sp4): 64.8 % LAV(MOD-sp4): 51.9 ml SV(MOD-sp4): 77.3 ml SV(MOD-sp2): 60.4 ml LA A4 area: 19.2 cm2 LA dimension(2D): 4.4 cm RA A4 area: 19.1 cm2 Doppler Measurements & Calculations MV E max ramirez: 110.4 cm/sec Lat Peak E' Ramirez: 7.5 cm/sec Med Peak E' Ramirez: 5.0 cm/sec MV A max ramirez: 132.1 cm/sec E/E' lat: 14.7 E/E' med: 21.9 MV E/A: 0.84 Ao V2 max: 158.4 cm/sec LV V1 max: 120.2 cm/sec PA V2 max: 104.7 cm/sec Ao max P.0 mmHg LV V1 max P.8 mmHg TR max ramirez: 286.9 cm/sec TR max P.0 mmHg Interpretation Summary The estimated ejection fraction is 65 %. Stage 1 diastolic dysfunction. Mildly dilated right ventricle. Bubble contrast study negative for right to left interatrial shunt. Trivial eccentric mitral valve insufficiency. Trivial tricuspid valve insufficiency. Right ventricular systolic pressure estimated to be 39 mmHg. Trivial to smal posterior pericardial effusion. There are no echocardiographic indications of cardiac tamponade. Compared to echo report dated 03/17/2017, no appreciable changes noted. Small pericardial effusion noted at that time. Ordering Physician: Berta Nicolas Referring Physician: Osmin Castillo MD Performed By: Elizabeth Garber RDCS
--- NOTE | 2018-03-07 05:55 | MRI_ITS ---
STUDY: MRA NECK WITHOUT CONTRAST REASON FOR EXAM: Female, 52 years old. Headache, confusion, slurred speech since yesterday TECHNIQUE: Source images were obtained, MIPs were performed. The study was performed unenhanced. COMPARISON: None. FINDINGS: RIGHT CAROTID ARTERIES: Normal right common carotid artery (CCA). Normal right common carotid bulb. Normal origin of the right internal carotid (ICA) artery without a hemodynamically significant stenosis. Normal visualized cervical portion of the right internal carotid artery. Normal origin of the right external carotid artery (ECA). LEFT CAROTID ARTERIES: Normal left common carotid artery (CCA). Normal left common carotid bulb. Normal origin of the left internal carotid (ICA) artery without a hemodynamically significant stenosis. Normal visualized cervical portion of the left internal carotid artery. Normal origin of the left external carotid artery (ECA). VERTEBRAL ARTERIES: Normal antegrade flow within the bilateral vertebral artery without a hemodynamically significant stenosis. MRI/MRA Neck without Contrast IMPRESSION: Normal bilateral cervical carotid and vertebral arteries. Electronically Signed: Landry Yoder MD at 10:30 EST Tel , Service support ,
--- NOTE | 2018-03-07 05:55 | MRI_ITS ---
STUDY: MRI BRAIN WITHOUT CONTRAST REASON FOR EXAM: Female, 52 years old. Headache, confusion, slurred speech since yesterday TECHNIQUE: Standardized multiplanar fat and water weighted pulse sequences were obtained. COMPARISON: CT 03/06/2018 FINDINGS: Normal size of the ventricles and extra-axial spaces for the patient's age. Normal white matter tracts of the supratentorial brain. Normal bilateral basal ganglia. Normal thalami. There is no extra-axial fluid accumulation. Normal flow voids within the major intracranial circulation suggesting patency by spin echo criteria. Normal sella turcica, pituitary gland, infundibular stalk, optic chiasm and hypothalamus. Normal tectal plate and pineal gland. A faint region of T2 hyperintensity is present in the central rosa maria without associated restricted diffusion or mass effect. This may be related to remote ischemia or microangiopathy. Nonacute central pontine myelinolysis is not entirely excluded. Normal cerebellum. Normal basal cisterns. Normal bilateral temporal bones. Normal bilateral internal auditory canals. No demonstrated orbital abnormality, within the constraints of a routine brain study. Normal visualized paranasal sinuses. Bilateral mastoid sinus disease. Normal visualized soft tissue structures. Normal visualized upper cervical spine. MRI/Brain without Contrast IMPRESSION: Abnormal signal in the rosa maria as described. Differential includes remote ischemia, sequelae of microangiopathy, and changes of nonacute central pontine myelinolysis. No evidence of acute infarct or hemorrhage. Electronically Signed: Landry Yoder MD at 10:26 EST Tel , Service support ,
[2018-03-07 06:36] LABS: Bedside Glucose 200 mg/dL (70-110)
[2018-03-07] MEDS: Budesonide Respules 0.5 MG/2 ML AMPUL.NEB. INHALATION ×2 (06:40→19:01)
[2018-03-07] MEDS: Albuterol 2.5 MG/3 ML VIAL.NEB. INHALATION ×3 (06:41→19:00)
[2018-03-07] MEDS: Insulin Lispro 100 UNIT/ML INSULN.PEN SC ×2 (08:14→21:19)
[2018-03-07 08:37] LABS: Hemoglobin A1c 7.9 % (4.2-6.3)
[2018-03-07] MEDS: Metoprolol Tartrate 25 MG Tablet PO (10:34)
[2018-03-07] MEDS: Lisinopril 20 MG Tablet PO (10:34)
[2018-03-07] MEDS: Doxycycline 100 MG CAPSULE PO ×2 (10:34→21:18)
[2018-03-07] MEDS: 0.9% NaCl Peripheral Flush Adult/Peds IV (10:34)
[2018-03-07 12:00] LABS: Bedside Glucose 147 mg/dL (70-110)
--- NOTE | 2018-03-07 13:30 | CASEMGMT ---
RN NANCY Face to Face with patient for initial transition planning/care coordination assessment. RN CM introduced self and role at [facility]. Patient lying in bed, alert and oriented. Patient willing to participate in assessment and is able to answer all questions appropriately. Care providers, pharmacy, and demographics verified. Patient wishes to discharge home and states that [facility] is working on getting her HHC next week. Patient states she has no further needs or concerns at this time. CM to follow for discharge planning needs that may arise. PCP: Anna Specialists: None Preferred Pharmacy: [facility] Insurance: [employer] Prescription Benefit: [employer] Living Will/HPOA: None LNOK: Son, currently in [place] [facility] Living Arrangements: Patient lives alone in 1st floor apt with ramp to enter home. Has brother that checks on her daily. Transportation: Patient states she uses a taxi to get to appts DME/HHC: Patient has Knee walker, cpap, and wheel chair at home. Disposition Plan: Patient to discharge home with follow-up plans in place. Alma Delia ARNDT, RN, CM
--- NOTE | 2018-03-07 13:57 | CON.PCM_ITS ---
Problem List (1) Headache Status: Acute Qualifiers: Headache chronicity pattern: unspecified pattern Intractability: intractable (2) Hypertensive urgency Status: Acute Reason for Consult Date of Consultation: 03/07/18 Reason for Consultation: RENTERIA History of Present Illness: The patient is a 52 year old CF with PMH HTN, HLD, DM, DM Neuropathy, Diabetic foot, recent left tibia fracture s/p surgery, DARCY on CPAP, morbid obesity admitted with severe RENTERIA. Per patient she generally does not get any HAs at baseline but yesterday felt severe RENTERIA frontal, acute, without any photophobia, phonophobia, nausea or visual disturbances, has some slurred speech and confusion per ED documentation and per patient, denies any focal motor weakness or new onset focal sensory loss, on admission SBP was > [address] head was reported negative. MRI brain did not show anything acute, but associated probably small vessel disease in rosa maria, MRA head/neck reported no hemodynamically significant stenosis or occlusion. Per patient she denies any balance issues or falls, denies any dizziness, does not use cane or walker to ambulate at baseline. Per patient at present her RENTERIA is much better and is about 2 in intensity. [] Past Medical History Past Medical History (Chronic Problems): Chronic Problems (Last Reviewed 03/07/18 @ 01:15 by Jeovanny Nicolas DO) SOB (shortness of breath) on exertion (Chronic) DARCY (obstructive sleep apnea) (Chronic) CPAP 12 cm of water Iron deficiency anemia (Chronic) Gait instability (Chronic) Venous insufficiency (Chronic) History of amputation of hallux (Chronic) GERD (gastroesophageal reflux disease) (Chronic) Hypertension (Chronic) MRSA (methicillin resistant staph aureus) culture positive (Chronic) left great toe Diabetes mellitus with polyneuropathy (Chronic) Diabetic neuropathy (Chronic) Diabetes mellitus type 2, uncontrolled (Chronic) Medical History: Medical History (Last Reviewed 03/07/18 @ 01:15 by Jeovanny Nicolas DO) H/O: hysterectomy (Resolved) Z98.890, Z90.710 Iron deficiency anemia (Chronic) D50.9 Diarrhea in adult patient (Resolved) R19.7 chronic intermittent diarrhea-etiology unknown Gait instability (Chronic) R26.81 Diabetic foot ulcer (Resolved) E11.621, L97.509 Venous insufficiency (Chronic) History of amputation of hallux (Chronic) Z89.419 GERD (gastroesophageal reflux disease) (Chronic) K21.9 Hypertension (Chronic) I10 Delayed wound healing (Resolved) T14.8 Edema of left lower extremity (Resolved) R60.0 MRSA (methicillin resistant staph aureus) culture positive (Chronic) Z22.322 left great toe Chronic ulcer of left foot with necrosis of muscle (Resolved) L97.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) M86.9 left great toe Malnutrition (Resolved) E46 Diabetes mellitus with polyneuropathy (Chronic) E11.42 Vaginal candidiasis (Resolved) B37.3 Diabetic neuropathy (Chronic) E11.40 Diabetes mellitus type 2, uncontrolled (Chronic) E11.65 Chronic ulcer of right great toe with fat layer exposed (Resolved) L97.512 Diabetic ulcer of left great toe (Resolved) E11.621, L97.529 with osteomylitis of left great toe Puncture wound of toe of left foot (Resolved) S91.139A Cellulitis of toe of left foot (Resolved) L03.032 Allergies Latex, Natural Rubber Allergy (Verified 03/06/18 21:46) Rash Penicillins Allergy (Verified 03/06/18 21:46) Swelling lactose Adverse Reaction (Verified 03/06/18 21:46) Diarrhea Home Medications: Ambulatory Orders Medication Instructions Recorded albuterol sulfate HFA 90 2 puff INHALATION Q4H PRN g 04/11/17 mcg/actuation aerosol inhaler Alogliptin Benzoate [Alogliptin] 25 mg PO DAILY 05/28/17 Basaglar Rashidpen U-100 46 unit SQ QHS 05/28/17 Montelukast [Singulair] 10 mg PO QHS 05/28/17 Omeprazole 40 mg PO DAILY 05/28/17 Bifidobacterium infantis 4 mg 4 mg PO DAILY 06/16/17 capsule furosemide 20 mg tablet 40 mg PO BID tab 09/21/17 glipizide 5 mg tablet 10 mg PO DAILY tab 09/21/17 lisinopril 40 mg tablet 40 mg PO QDAY 09/21/17 loratadine 10 mg capsule 10 mg PO QDAY #30 cap 09/21/17 metoprolol tartrate 25 mg tablet 25 mg PO BID 09/21/17 fluticasone 100 mcg-vilanterol 25 1 inh INHALATION Q24H #60 ea 12/14/17 mcg/dose powder for inhalation Ibuprofen 600 mg PO DAILY PRN 02/21/18 Lactobacillus Acidophilus 1 each PO DAILY 02/21/18 [Acidophilus] Doxycycline [Vibramycin] 100 mg PO BID 14 Days #28 cap 02/27/18 Loperamide [Imodium] 2 mg PO BID PRN 03/07/18 Surgical History: Surgical History (Last Reviewed 03/07/18 @ 01:15 by Jeovanny Nicolas DO) Amputated toe (Resolved) Z89.429 Surgical History: hysterectomy, - - 2 c/s Psychiatric History: No pertinent psych hx [employer]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 Lives: Alone Smoking Status: Never smoker Tobacco Use: Non-smoker Alcohol: Rare Drugs: None - *Family History Sibling History Items: Diabetes, Heart Disease, Hypertension Paternal History Items: Diabetes, Heart Disease, Hypertension Maternal History Items: Diabetes, Hypertension, - - Obesity Review of Systems Constitutional: Reports: - - complete ROS negative except as documented in HPI Patient Problems: Active and Suspected Problems (Last Reviewed 03/07/18 @ 01:15 by Jeovanny Nicolas DO) Hypertensive urgency (Acute) Dehydration (Acute) Headache (Acute) - Physical Exam General: Alert HEENT: Normocephalic Neck: Supple Lungs: Normal air movement Cardiovascular: Normal S1, Normal S2 Abdomen: Bowel Sounds Present Extremities: No cyanosis Neurological: - - consious, alert, CN 2-12 grossly intact, power 5/5 all 4 ext remities, no sensory loss, no cerebellar signs, Reflexes + B/L B/S/T/K/A, gait deferred, no NR Psych/Mental Status: Normal Affect Vital Signs Temp Pulse Resp BP Pulse Ox 98.2 F 85 16 173/75 H 96 03/07/18 10:32 03/07/18 12:51 03/07/18 12:51 03/07/18 10:34 03/07/18 10:32 Oxygen Delivery Method Room Air Weight: 114.9 kg Body Mass Index (BMI) 41.5 Finger Stick Blood Glucose 156 Intake and Output for Last 24 Hours 03/05/18 03/06/18 03/07/18 23:59 23:59 23:59 Intake Total 1747 / 1747 Balance 1747 / 1747 Laboratory Tests Past 24 Hrs 03/06/18 03/06/18 03/06/18 22:10 22:10 22:10 WBC 9.0 RBC 3.92 L Hgb 10.8 L Hct 35.0 L MCV 89.3 MCH 27.6 MCHC 30.9 L RDW 14.0 RDW Differential 45.7 H Plt Count 249 MPV 10.8 Immature Gran % (Auto) 0.100 Neut % (Auto) 74.8 H Lymph % (Auto) 16.5 L Garvin % (Auto) 5.9 Eos % (Auto) 2.3 Baso % (Auto) 0.4 Absolute Neuts (auto) 6.7 Absolute Lymphs (auto) 1.48 Total Counted Not Reportable PT Cancelled INR Cancelled APTT Cancelled Sodium 143 Potassium 4.6 Chloride 111 H Carbon Dioxide 25.0 Anion Gap 7 BUN 33 H Creatinine 1.25 H Estim Creat Clear Calc 47.91 Est GFR (MDRD) Af Amer 58 L Est GFR (MDRD) Non-Af 48 L BUN/Creatinine Ratio 26.4 H Glucose 177 H Hemoglobin A1c Calcium 8.6 Phosphorus Magnesium Total Bilirubin AST ALT Alkaline Phosphatase Troponin I < 0.015 Total Protein Albumin Globulin Albumin/Globulin Ratio Triglycerides Cholesterol LDL Cholesterol VLDL Cholesterol HDL Cholesterol TSH 03/06/18 03/06/18 03/06/18 22:10 22:10 22:35 WBC RBC Hgb Hct MCV MCH MCHC RDW RDW Differential Plt Count MPV Immature Gran % (Auto) Neut % (Auto) Lymph % (Auto) Garvin % (Auto) Eos % (Auto) Baso % (Auto) Absolute Neuts (auto) Absolute Lymphs (auto) Total Counted PT 12.9 INR 1.0 APTT 26.3 Sodium Potassium Chloride Carbon Dioxide Anion Gap BUN Creatinine Estim Creat Clear Calc Est GFR (MDRD) Af Amer Est GFR (MDRD) Non-Af BUN/Creatinine Ratio Glucose Hemoglobin A1c 7.9 H Calcium Phosphorus Magnesium Total Bilirubin AST ALT Alkaline Phosphatase Troponin I Total Protein Albumin Globulin Albumin/Globulin Ratio Triglycerides Cholesterol LDL Cholesterol VLDL Cholesterol HDL Cholesterol TSH 1.03 03/07/18 03/07/18 03/07/18 01:50 04:46 04:46 WBC 11.9 H RBC 3.46 L Hgb 9.8 L Hct 31.7 L MCV 91.6 MCH 28.3 MCHC 30.9 L RDW 13.8 RDW Differential 45.1 H Plt Count 237 MPV 11.3 Immature Gran % (Auto) 0.300 Neut % (Auto) 83.9 H Lymph % (Auto) 11.7 L Garvin % (Auto) 3.6 Eos % (Auto) 0.2 Baso % (Auto) 0.3 Absolute Neuts (auto) 10.0 H Absolute Lymphs (auto) 1.39 Total Counted Not Reportable PT INR APTT Sodium 145 Potassium 4.9 Chloride 113 H Carbon Dioxide 23.0 Anion Gap 9 BUN 38 H Creatinine 1.69 H Estim Creat Clear Calc 35.44 Est GFR (MDRD) Af Amer 41 L Est GFR (MDRD) Non-Af 34 L BUN/Creatinine Ratio 22.5 H Glucose 251 H Hemoglobin A1c Calcium 7.9 L Phosphorus 4.4 Magnesium 1.7 Total Bilirubin 0.10 L AST 20 ALT 17 Alkaline Phosphatase 93 Troponin I Pending < 0.015 Total Protein 6.5 Albumin 2.5 L Globulin 4.0 Albumin/Globulin Ratio 0.6 L Triglycerides 77 Cholesterol 148 LDL Cholesterol 87 VLDL Cholesterol 15 HDL Cholesterol 46 TSH POC Glucose 03/07/18 03/07/18 03/06/18 11:23 06:33 22:07 POC Glucose 147 H 200 H 156 H Assessment/Plan All Active Problems (Last Reviewed 03/07/18 @ 01:15 by Jeovanny Nicolas DO) Hypertensive urgency (Acute) Dehydration (Acute) Headache (Acute) Amputated toe (Resolved) H/O: hysterectomy (Resolved) Diarrhea in adult patient (Resolved) Diabetic foot ulcer (Resolved) Delayed wound healing (Resolved) Edema of left lower extremity (Resolved) 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 Per patient she generally does not get any HAs at baseline but yesterday felt severe RENTERIA frontal, acute, without any photophobia, phonophobia, nausea or visual disturbances, has some slurred speech and confusion per ED documentation and per patient, denies any focal motor weakness or new onset focal sensory loss, on admission SBP was > [address] head was reported negative. MRI brain did not show anything acute, but associated probably small vessel disease in rosa maria, MRA head/neck reported no hemodynamically significant stenosis or occlusion. Per patient she denies any balance issues or falls, denies any dizziness, does not use cane or walker to ambulate at baseline. Per patient at present her RENTERIA is much better and is about 2 in intensity. Impression Hypertensive urgency RENTERIA-decreased in intensity with decrease in BP Plan -RENTERIA likely secondary to uncontrolled BP. -Better BP control, goal < 130/80 mmHg, will defer to hospitalist team -MRI brain and MRA head/neck reviewed -TTE-p -GI/DVT prophylaxis -Fall precautions -Further medical management per hospitalist team -Please call with questions if any -Thank you for allowing us to participate in patient's care and management Code Visit Inpatient E&M: 36827 Init Hosp L3
[2018-03-07 16:56] LABS: Bedside Glucose 139 mg/dL (70-110)
--- NOTE | 2018-03-07 20:28 | PCM.HOSP.N ---
Hospitalist Note Patient was seen and examined briefly today, I talked with neurology today and they do not feel the patient has had a stroke. Patient's headache is gone at this time, her blood pressure though remains elevated. She will need her blood pressure medications adjusted, she also complained of some dysuria this evening and I ordered a UA. I will reevaluate the patient in the morning, patient will need repeat BMP in the morning as her creatinine has bumped up a little bit, she was on Lasix at home up until 3 days ago.
[2018-03-07] MEDS: Metoprolol Tartrate 50 MG Tablet PO (21:19)
[2018-03-07] MEDS: Montelukast 10 MG Tablet PO (21:19)
[2018-03-07 21:27] LABS: Bedside Glucose 167 mg/dL (70-110)
[2018-03-07] MEDS: Acetaminophen 325 MG Tablet 650 MG PO (21:40)
[2018-03-08] VITALS (10 sets, daily range): BP systolic 155–187; BP diastolic 73–84; PULSE 72–80; RESP 16–18; TEMP 36.6–37.2; O2SAT 94–97
[2018-03-08] MEDS: 0.9% Normal Saline 1,000 ML 100 ML IV ×2 (00:30→10:57)
[2018-03-08] MEDS: 0.9% NaCl Peripheral Flush Adult/Peds IV ×2 (00:38→01:51)
[2018-03-08] MEDS: Labetalol 20 MG/4 ML Vial 10 MG IV (00:38)
[2018-03-08] MEDS: HYDROmorphone 0.5 MG/0.5 ML SYRINGE IV (01:50)
[2018-03-08] MEDS: Enoxaparin 40 MG/0.4 ML Syringe SC (05:22)
[2018-03-08 05:38] LABS: Hematocrit 28.1 % (37-47); Hemoglobin 8.5 g/dl (12.0-15.0)
[2018-03-08 05:51] LABS: BUN 33 mg/dL (7-18); Creatinine, Serum 1.27 mg/dL (0.55-1.02); Estimated Creatinine Clearance 47.16 ml/min; Glucose 140 mg/dL (74-106)
[2018-03-08 05:52] LABS: Anion Gap 6 (5-15); Calcium,Total 7.9 mg/dL (8.5-10.1); Chloride 115 mmol/L (98-107); EST Glomerular Filtration Rate 47 mL/min (>60); Est Glom Filt Rate - Afr Amer 57 mL/min (>60); Potassium 4.6 mmol/L (3.5-5.1); Sodium Level 145 mmol/L (136-145)
[2018-03-08 06:02] LABS: Mucous, Urine 0 SEEN /hpf (<or=2+)
[2018-03-08 06:04] LABS: Color, Urine Yellow (Yellow); Glucose, Dipstick Normal (Normal); Ketone-Dipstick Negative (Negative); Leukocyte Esterase-Dipstick 100 /ul (Negative); Nitrite-Dipstick Negative (Negative); Occult Blood-Urine 25 /ul (Negative); Protein-Dipstick 100 mg/dl (Negative); Specific Gravity, Urine 1.025 (1.002-1.030); Urine Bilirubin Dipstick Negative (Negative); Urine Clarity Cloudy (Clear); Urine Urobilinogen Normal (Normal)
[2018-03-08 06:11] LABS: Bacteria 2+ /hpf (None Seen); Yeast-Urine 3+ /hpf (None Seen)
[2018-03-08 06:12] LABS: Red Blood Cells-Urine 0-5 SEEN /hpf (0-5); Squamous Epithelial Cells - UA 5-10 SEEN /hpf (5-10); White Blood Cells 5-10 SEEN /hpf (0-5)
[2018-03-08 07:01] LABS: Bedside Glucose 126 mg/dL (70-110)
[2018-03-08] MEDS: Aspirin 81 MG TAB.CHEW PO (08:15)
[2018-03-08] MEDS: Lisinopril 20 MG Tablet PO (10:03)
[2018-03-08] MEDS: Metoprolol Tartrate 50 MG Tablet PO (10:03)
[2018-03-08] MEDS: Doxycycline 100 MG CAPSULE PO (10:03)
[2018-03-08] MEDS: Insulin Lispro 100 UNIT/ML INSULN.PEN SC (11:24)
[2018-03-08 11:25] LABS: Bedside Glucose 165 mg/dL (70-110)
--- NOTE | 2018-03-08 11:50 | NURSING ---
wound photo: left distal lateral lower leg
--- NOTE | 2018-03-08 12:17 | DCINST_ITS ---
- Discharge Diagnoses Current Active Problems: Current Active and Chronic Problems (Last Reviewed 03/07/18 @ 01:15 by Jeovanny Nicolas DO) Hypertensive urgency (Acute) Dehydration (Acute) Headache (Acute) You will use the following diet at home:: Calorie/Carbohydrate Controlled (specify 1200, 1400, etc) - 1800 agnes Your food should be the consistency of: Regular Your liquids should be the consistency of: Regular/Thin Discharge Activity: Return to Normal Activity Weight Bearing Status: Full weight bearing Allergies/Adverse Reactions: Allergies Latex, Natural Rubber Allergy (Verified 03/06/18 21:46) Rash Penicillins Allergy (Verified 03/06/18 21:46) Swelling lactose Adverse Reaction (Verified 03/06/18 21:46) Diarrhea Medications to take at Discharge albuterol sulfate HFA 90 mcg/actuation aerosol inhaler 2 puff INHALATION Q4H PRN g 04/11/17 Alogliptin Benzoate [Alogliptin] 25 mg PO DAILY 05/28/17 Basaglar Kwikpen U-100 46 unit SQ QHS 05/28/17 Montelukast [Singulair] 10 mg PO QHS 05/28/17 Omeprazole 40 mg PO DAILY 05/28/17 Bifidobacterium infantis 4 mg capsule 4 mg PO DAILY 06/16/17 furosemide 20 mg tablet 40 mg PO BID tab 09/21/17 glipizide 5 mg tablet 10 mg PO DAILY tab 09/21/17 lisinopril 40 mg tablet 40 mg PO QDAY 09/21/17 metoprolol tartrate 25 mg tablet 25 mg PO BID 09/21/17 fluticasone 100 mcg-vilanterol 25 mcg/dose powder for inhalation 1 inh INHALATION Q24H #60 ea 12/14/17 Ibuprofen 600 mg PO DAILY PRN 02/21/18 Lactobacillus Acidophilus [Acidophilus] 1 each PO DAILY 02/21/18 Doxycycline [Vibramycin] 100 mg PO BID 14 Days #28 cap 02/27/18 Loperamide [Imodium] 2 mg PO BID PRN 03/07/18 Metoprolol Tartrate [Lopressor (beta nubia)] 50 mg PO BID #60 tab 03/08/18 loratadine 10 mg capsule 10 mg PO QDAY #30 cap 03/08/18 The following prescriptions were given: Metoprolol Tartrate [Lopressor (beta nubai)] 50 mg PO BID #60 tab Primary Care Physician: John Castillo MD [Primary Care Provider] - Please follow up with your Primary Care Physician in: in 3 weeks Test Results: Test results from this visit will be discussed in further detail at your follow- up appointment, if applicable.
--- NOTE | 2018-03-08 14:01 | NURSING ---
Student nurse charting reviewed and appropriate.
--- NOTE | 2018-03-08 14:19 | NURSING ---
Student nurse charting reviewed and appropriate.
--- NOTE | 2018-03-09 09:03 | PCM.DC.SUM ---
Discharge Date and Diagnosis Date of Admission: 03/07/18 Date of Discharge: 03/08/18 - Primary Discharge Diagnosis #1 hypertensive urgency #2 cephalgia secondary to hypertensive urgency #3 chronic kidney disease stage III secondary to type 2 diabetes - Secondary Discharge Diagnosis Chronic Problems (Last Reviewed 03/07/18 @ 01:15 by Jeovanny Nicolas DO) SOB (shortness of breath) on exertion (Chronic) DARCY (obstructive sleep apnea) (Chronic) CPAP 12 cm of water Iron deficiency anemia (Chronic) Gait instability (Chronic) Venous insufficiency (Chronic) History of amputation of hallux (Chronic) GERD (gastroesophageal reflux disease) (Chronic) Hypertension (Chronic) MRSA (methicillin resistant staph aureus) culture positive (Chronic) left great toe Diabetes mellitus with polyneuropathy (Chronic) Diabetic neuropathy (Chronic) Diabetes mellitus type 2, uncontrolled (Chronic) Hospital Course and Treatment Consultations 03/07/18 Consult: Onc/Wound/supervisor home economics Routine Comment: Reason for Consult:: recent L fibula fx surgery Comments:: patient refused to have drsg taken off to assess Operations: None Procedures: None Summary of Care Provided: The patient is a 52 year old F who was seen in the emergency room at [facility] with chief complaint severe cephalgia and elevated blood pressure with a systolic reading of 228. Workup in the emergency room included a CT of the head which was negative, portable chest x-ray was also negative, CBC showed a mild anemia. Glucose was elevated at 177, BUN and creatinine were elevated at 33 and 1.25. Patient received 10 mg of IV labetalol in the emergency room, she was admitted to PCU and NIH stroke scores were monitored, she had an MRI of the brain, MRI of the head and neck and was seen in consultation by neurology. Neurology felt that the patient's cephalgia was secondary to uncontrolled hypertension. Patient's blood pressure medications were adjusted while she was in the hospital, her imaging studies did not show any evidence of acute stroke. Physical exam: On examination she appeared in good health and spirits. Vital signs as documented. Skin warm and dry and without overt rashes. Neck without JVD. Lungs clear. Heart exam notable for regular rhythm, normal sounds and absence of murmurs, rubs or gallops. Abdomen unremarkable and without evidence of organomegaly, masses, or abdominal aortic enlargement. Extremities nonedematous, patient's left lower leg is covered with a surgery splint.. Neuro: Cranial nerves II through XII are grossly intact, no focal motor deficits were noted, sensation to light touch and pinprick is intact. Psych: Patient is alert and oriented x3, she does not appear anxious or depressed. On 03/08/18, patient was seen and examined felt to be in stable condition for discharge home - Physical Exam Vital Signs Temp Pulse Resp BP Pulse Ox 98.9 F 74 18 166/75 H 94 03/08/18 13:19 03/08/18 13:19 03/08/18 13:19 03/08/18 13:19 03/08/18 13:19 Oxygen Delivery Method Room Air Weight: 114.9 kg Body Mass Index (BMI) 41.5 Finger Stick Blood Glucose 156 Intake and Output for Last 24 Hours 03/07/18 03/08/18 03/09/18 23:59 23:59 23:59 Intake Total 3516 / 3516 1602 / 1602 Balance 3516 / 3516 1602 / 1602 POC Glucose 03/08/18 11:02 POC Glucose 165 H Discharge Activity: Return to Normal Activity Weight Bearing Status: Full weight bearing Home Medications: Medications to take at Discharge albuterol sulfate HFA 90 mcg/actuation aerosol inhaler 2 puff INHALATION Q4H PRN g 04/11/17 Alogliptin Benzoate [Alogliptin] 25 mg PO DAILY 05/28/17 Basaglar Kwikpen U-100 46 unit SQ QHS 05/28/17 Montelukast [Singulair] 10 mg PO QHS 05/28/17 Omeprazole 40 mg PO DAILY 05/28/17 Bifidobacterium infantis 4 mg capsule 4 mg PO DAILY 06/16/17 furosemide 20 mg tablet 40 mg PO BID tab 09/21/17 glipizide 5 mg tablet 10 mg PO DAILY tab 09/21/17 lisinopril 40 mg tablet 40 mg PO QDAY 09/21/17 metoprolol tartrate 25 mg tablet 25 mg PO BID 09/21/17 fluticasone 100 mcg-vilanterol 25 mcg/dose powder for inhalation 1 inh INHALATION Q24H #60 ea 12/14/17 Ibuprofen 600 mg PO DAILY PRN 02/21/18 Lactobacillus Acidophilus [Acidophilus] 1 each PO DAILY 02/21/18 Doxycycline [Vibramycin] 100 mg PO BID 14 Days #28 cap 02/27/18 Loperamide [Imodium] 2 mg PO BID PRN 03/07/18 Metoprolol Tartrate [Lopressor (beta nubia)] 50 mg PO BID #60 tab 03/08/18 loratadine 10 mg capsule 10 mg PO QDAY #30 cap 03/08/18 Following Prescrptions Were Given to Patient: Metoprolol Tartrate [Lopressor (beta nubia)] 50 mg PO BID #60 tab Primary Care Physician: John Castillo MD [Primary Care Provider] - Please follow up with your Primary Care Physician in: in 3 weeks Please Follow Up With: John Castillo MD Disposition: Home Minutes spent on discharge:: 32 Patient Condition:: Stable Medical Necessity - Tobacco Use Smoking Status: Never smoker Tobacco Use: Non-smoker Meaningful Use Info Meaningful Use Diagnoses (Choose all that apply): None applicable Code Visit Inpatient E&M: 61658 Disch Hosp
--- NOTE | 2018-03-09 16:01 | CASEMGMT ---
Addendum entered by Alma Delia Galdamez 03/09/18 16:15: This RN CM received call back from pt at this time. Pt states she has been doing 'ok' since discharge and states 'no headache or anything.' Pt states no questions regarding discharge instructions or medications at this time. Pt states has f/u appt on monday at 1030. Pt states no suggestions for [facility] at this time but does states that 'I really liked that nurse Yeimi, she really seemed to care, well they all did but she was just really nice.' Pt voices no further questions/concerns/needs at this time. Char FOURNIER CM Original Note: RN CM Discharge F/U Phone Call LACE: 13 Strata: 4 Discharge date: 03/08/18 Call date: 03/09/18 Call time: 1601 Attempted to reach pt without success at this time, message left for pt to call this RN CM back if able. Char FOURNIER CM Admission dx: Hypertensive urgency, suspected CVA
== END 2018-03-08 14:47 | disposition home or self-care (01) | DRG 199 ==
LOC: ED 22:20 → PCU 23:45
PROVIDERS: Admitting Provider Internal Medicine; Emergency Provider Emergency Medicine; Family Provider Family Medicine; PCP Family Medicine; Visit Provider Internal Medicine
DX: I16.0 Hypertensive urgency (principal); E11.22 Type 2 diabetes mellitus with diabetic chronic kidney disease; N18.3 Chronic kidney disease, stage 3 (moderate); E11.51 Type 2 diabetes mellitus with diabetic peripheral angiopathy without gangrene; G47.33 Obstructive sleep apnea (adult) (pediatric); D50.9 Iron deficiency anemia, unspecified; I87.2 Venous insufficiency (chronic) (peripheral); K21.9 Gastro-esophageal reflux disease without esophagitis; E11.42 Type 2 diabetes mellitus with diabetic polyneuropathy; Z86.14 Personal history of Methicillin resistant Staphylococcus aureus infection; E11.621 Type 2 diabetes mellitus with foot ulcer; L97.523 Non-pressure chronic ulcer of other part of left foot with necrosis of muscle; E66.01 Morbid (severe) obesity due to excess calories; Z89.419 Acquired absence of unspecified great toe; Z68.41 Body mass index [BMI] 40.0-44.9, adult; Z82.49 Family history of ischemic heart disease and other diseases of the circulatory system; Z83.3 Family history of diabetes mellitus; Z86.39 Personal history of other endocrine, nutritional and metabolic disease; Z90.710 Acquired absence of both cervix and uterus; E86.0 Dehydration; J45.909 Unspecified asthma, uncomplicated; R09.89 Other specified symptoms and signs involving the circulatory and respiratory systems; Z60.2 Problems related to living alone; I12.9 Hypertensive chronic kidney disease with stage 1 through stage 4 chronic kidney disease, or unspecified chronic kidney disease; E78.5 Hyperlipidemia, unspecified; E46 Unspecified protein-calorie malnutrition; L03.032 Cellulitis of left toe
CPT/HCPCS: 36415; 70450; 70544; 70547; 70551; 71045; 80048; 80053; 80061; 81001; 82962; 83036; 83735; 84100; 84443; 84484; 85014; 85018; 85025; 85610; 85730; 87086; 87088; 93005; 93306; 94640; 94660; 97161; 97165; 97802; 99285; J7030; A4216; J2405

== ENCOUNTER → 2018-03-16 11:27 | Outpatient (CLI) | payer MEDICAID, SELFPAY ==
[2018-03-07 08:05] VITALS: BMI 41.5
[2018-03-16 13:32] LABS: Hematocrit 33.7 % (37-47); Hemoglobin 10.1 g/dl (12.0-15.0); Mean Corpuscular Hgb 27.4 pg (27.0-32.0); Mean Corpuscular Volume 91.6 fL (81-99); Mean Platelet Vol. 11.4 fl (6.2-12.0); Platelet Count 254 K/mm3 (150-450); RBC Distribution Width CV 14.2 % (11.6-14.6); RBC Distribution Width SD 47.2 fl (35.1-43.9); Red Blood Count 3.68 M/mm3 (4.2-5.4); White Blood Count 8.6 K/mm3 (4.4-11.0)
[2018-03-16 13:35] LABS: Scan Indicated on CBC? Y/N NO
[2018-03-16 13:55] LABS: Anion Gap 7 (5-15); BUN 24 mg/dL (7-18); BUN/Creat Ratio 18.5 RATIO (10-20); Calcium,Total 8.3 mg/dL (8.5-10.1); Chloride 111 mmol/L (98-107); EST Glomerular Filtration Rate 46 mL/min (>60); Est Glom Filt Rate - Afr Amer 55 mL/min (>60); Glucose 134 mg/dL (74-106); Potassium 4.4 mmol/L (3.5-5.1); Sodium Level 144 mmol/L (136-145)
--- OUTSIDE RECORDS SUMMARY | 2018-05-02 04:51 | XMS RPT_ITS ---
:1965 Author Organization OHIP Support Name Relationship Address Phone [facility] Unavailable [address] + [place] [address] [facility] Unavailable [address] + [place] [address] NEIDA NAVARRO Unavailable Unavailable + [facility] Unavailable [address] + [place] [address] WAGNER GRECIA Unavailable Unavailable + NEIDA NAVARRO Unavailable Unavailable + [facility] Unavailable [address] + [place] [address] NEIDA NAVARRO Unavailable Unavailable + [facility] Unavailable [address] + [place] [address] [facility] Unavailable [address] + [place] [address] GRECIA EDWARD Unavailable Unavailable + [facility] Unavailable [address] + [place] [address] GRECIA EDWARD Unavailable Unavailable + [facility] Unavailable [address] + [place] [address] GRECIA EDWARD Unavailable Unavailable + [facility] Unavailable [address] + [place] [address] [facility] Unavailable [address] + [place] [address] GRECIA EDWARD Unavailable Unavailable + [facility] Unavailable [address] + [place] [address] CHROSTOWSKI, GRECIA Unavailable Unavailable + [facility] Unavailable [address] + [place] [address] CHROSTOWSKI, GRECIA Unavailable [address] + [place] [address] [facility] Unavailable [address] + [place] [address] CHROSTOWSKI, GRECIA Unavailable Unavailable + [place] [facility] Unavailable [address] + [place] [address] CHROSTOWSKI, GRECIA Unavailable Unavailable + [place] [facility] Unavailable [address] + [place] [address] CHROSTOWSKI, GRECIA Unavailable Unavailable + [place] [facility] Unavailable [address] + [place] [address] CHROSTOWSKI, GRECIA Unavailable Unavailable + [place] [facility] Unavailable [address] + [place] [address] CHROSTOWSKI, GRECIA Unavailable . + [place] . [facility] Unavailable [address] + [place] [address] CHROSTOWSKI, GRECIA Unavailable . + [place] . [facility] Unavailable [address] + [place] [address] CHROSTOWSKI, GRECIA Unavailable . + [place] . [facility] Unavailable [address] + [place] [address] CHROSTOWSKI, GRECIA Unavailable . + [place] . [facility] Unavailable [address] + [place] [address] CHROSTOWSKI, GRECIA Unavailable Unavailable + [place] [facility] Unavailable [address] + [place] [address] NEIDA NAVARRO Unavailable Unavailable [phone] [place] [address] [facility] Unavailable [address] + [place] [address] NEIDA NAVARRO Unavailable . [phone] [place] [address] [facility] Unavailable [address] + [place] [address] NEIDA NAVARRO Unavailable . [phone] [place] [address] [facility] Unavailable [address] + [place] [address] NEIDA NAVARRO Unavailable . [phone] [place] [address] Care Team Providers Name Role Phone DASHA KENDALL Attending Unavailable Osmin Castillo Attending Unavailable Ranney, Christopher Referring Unavailable Ranney, Christopher Primary Care Unavailable Ranney, Christopher Primary Care Unavailable Reji Daly Attending Unavailable Ranney, Christchaner Attending Unavailable Ranney, Christopher Referring Unavailable Ranney, Christopher Primary Care Unavailable Ranney, Christopher Primary Care Unavailable Reji Daly Attending Unavailable Dunia Hill Attending Unavailable Ranney, Christopher Referring Unavailable Reji Gu Attending Unavailable Lonnie Jimenez Referring Unavailable Ranney, Christchaner Attending Unavailable Ranney, Christopher Referring Unavailable Ranney, Christopher Primary Care Unavailable Ranney, Manoloer Attending Unavailable Ranney, Christopher Referring Unavailable Ranney, Christopher Primary Care Unavailable Ranney, Christchaner Attending Unavailable Ranney, Christopher Referring Unavailable Ranney, Christopher Primary Care Unavailable Ranney, Christopher Primary Care Unavailable Yariel Kruse Attending Unavailable Dunia Hill Attending Unavailable Ranney, Christopher Referring Unavailable Dunia Hill Attending Unavailable Ranney, Christopher Referring Unavailable Ranney, Christopher Primary Care Unavailable Doe Panda Attending Unavailable Ranney, Christopher Primary Care Unavailable Demarco Gomez Attending Unavailable Ranney, Manoloer Attending Unavailable Ranney, Christopher Referring Unavailable Ranney, Christopher Primary Care Unavailable Ranney, Manoloer Attending Unavailable Ranney, Christopher Referring Unavailable [facility], [facility] Unavailable Onur Malave Attending Unavailable Ranney, Christopher Referring Unavailable Ranney, Christopher Attending Unavailable Ranney, Christopher Referring Unavailable Ranney, [facility] Primary Care Unavailable MycAshanti yousif Attending Unavailable Mychak, Ashanti Referring Unavailable Ranney, Christopher Primary Care Unavailable Ranney, Christopher Primary Care Unavailable Sementi, Berta Admitting Unavailable Maximus Foster Consulting Unavailable Tereletsky, Lonnie Attending Unavailable Sementi, Berta Admitting Unavailable Sementi, Berta Attending Unavailable Ranney, Christopher Primary Care Unavailable Sementi, Berta Consulting Unavailable Sementi, Berta Admitting Unavailable Tereletsky, Lonnie Attending Unavailable Ranney, Christopher Primary Care Unavailable Foster, Maximus Consulting Unavailable Tereletsky, Lonnie Consulting Unavailable PROBLEMS PROBLEMS DATE TYPE CONDITION / CODE ATTENDING STATUS SOURCE 03/15/2018 Unknown G89.18 - Other acute Ashanti Sotomayor Active [place] [facility] / G89.18(ICD-10) Hospital Repository 02/15/2018 Unknown R06.02 - Shortness Anna, Active [place] of breath / [facility] R06.02(ICD-10) Hospital Repository 02/15/2018 Unknown M25.569 - Pain in Anna, Active [place] unspecified knee / [facility] M25.569(ICD-10) Hospital Repository 10/29/2017 Unknown S30.810A - Abrasion Cornpriscilla Doe Active [place] of lower back and [facility] pelvis, initial Hospital encounter / Repository S30.810A(ICD-10) 10/03/2017 Unknown R19.7 - Diarrhea, Anna, Active [place] unspecified / [facility] R19.7(ICD-10) Hospital Repository 10/03/2017 Unknown 787.91 - Diarrhea / Anna, Active [place] 787.91(ICD-9) [facility] Hospital Repository 05/23/2017 Unknown M25.519 - Pain in Anna, Active [place] unspecified shoulder [facility] / M25.519(ICD-10) Hospital Repository PROCEDURES PROCEDURES No Procedure Records FoundRESULTS RESULTS EMERGENCY DEPARTMENT Observed: 03/26/2018 Status: F Source: [place] SUMMARY 7:03 AM [facility] Medical Records Department [address] [place] [address] Emergency Department Summary 03/24/18 1438 MR#: [id number] Acct: [id number] Name: LORI EDWARD Rep #: [id number] : 1965 52 From: Reji Daly DO PCP: Osmin Castillo MD Status: DEP ER - ER Visit Summary Date of Service: 03/24/18 Chief Complaint: Left foot pain History of Present Illness: The patient is a 52 F who underwent a fibular surgery for a fracture on February 27 by was to orthopedics. She states she had her stitches taken out on Monday and had a new splint put on. She states that on Monday she began have pain on the top part of her foot described as sharp and stabbing. She states it has become significantly more painful and was having difficulty sleeping last night. Physical Examination: Afebrile vital signs stable Patient has a posterior Ortho-Glass splint on. This was taken down. In doing so went through 3 layers of cotton in 3 separate layers of Cherry wrap. When I took the splint off the patient stated that her pain was significant improved. The patient has a strong dorsalis pedis and posterior tibial pulse. Surgical and site is well-healing. I do not see any bruising on the foot or erythema. The patient has significant amount of loose skin associated with edematous tissue that has been compressed. Test Results: Foot films were negative for acute Emergency Department Course and Treatment: Splint was taken down and the patient feels significantly better. She still has had the occasional sharp pain at the distal end of the first metatarsal. I placed the patient back in a posterior Ortho-Glass splint. She also received a Valium which is helped. She will be discharged home to follow-up with her doctor. Impression: 1. Left foot pain 2. Splint by physician This note was generated with Anygma dictation software. It may contain incorrect words, spelling, and punctuation that were not noted in review of the chart prior to signing ED Disposition - Plan for ED Patient: Disposition: Home or Assisted Living Chief Complaint: Lower Extremity Injury Instructions: ED Splint Care Fiberglass Referrals: Ashanti Sotomayor DPM [STAFF PHYSICIAN] - Keep Jhonny appointment What to do if you have Problems For any increased pain, shortness of breath, bleeding, nausea or vomiting, chest pain, or any unexpected problems, contact your Primary Care Provider. Call [facility] ([phone]) or report to the closest Emergency Room. Call 911 if necessary. 03/26/18 0703 <Electronically signed by Reji Daly DO> Date Reji Daly DO Cosigner Signature (If Indicated): Date CC: Osmin Castillo MD FOOT MIN 3 VIEWS Observed: 03/24/2018 Status: F Source: [place] 1:24 PM [facility] [address] [place] [address] Foot min 3 Views MR#: [id number] Acct: [id number] Name: LORI EDWARD Rep #: [id number] : 1965 F 52 From: Christian Nino MD PCP: Osmin Castillo MD Status: REG ER Study: Foot min 3 Views Date of Exam: 03/24/18 Exam# [id number] Ordering Dr: Reji Daly DO STUDY: X-RAY - LEFT FOOT CLINICAL: Female, 52 years old. Diabetic. Amputation. TECHNIQUE: 3 view(s) of the foot. COMPARISON: 05/06/2016. FINDINGS: Stable appearance of an amputation of the first digit. Cannot exclude soft tissue infection. Cannot completely exclude soft tissue air. There is a small calcific density approximately 4 mm size distal to the tip of the first metatarsal of uncertain origin. Subluxation seen of the second metatarsophalangeal joint. Small plantar spur. 2. Screws through the distal tibia and fibula. RAD/Foot min 3 Views IMPRESSION: No gross focal destructive process of the bones. No definite osteomyelitis but cannot be excluded on radiographs alone. Cannot exclude soft tissue infection. Cannot completely exclude soft tissue gas. Electronically Signed: Christian Nino MD at 14:41 EST , Service support , CC: Osmin Castillo MD; Reji Daly DO International Student Counselor: Signed CONSULTATION Observed: 03/20/2018 Status: F Source: [place] 1:04 PM [facility] Medical Records Department [address] [place] [address] Consultation 03/07/18 1352 MR#: [id number] Acct: [id number] Name: LORI EDWARD Rep #: [id number] : 1965 52 From: Tom Gayle MD PCP: Osmin Castillo MD Status: DIS IN Y Location: [place] [address]1 Problem List (1) Headache Status: Acute Qualifiers: [...] Benzoate [Alogliptin] 25 mg PO DAILY 05/28/17 Marisela Zhang U-100 46 unit SQ QHS 05/28/17 Surgical History: Surgical History (Last Reviewed 03/07/18 @ 01:15 by Jeovanny Nicolas DO) Amputated toe (Resolved) Z89.429 Surgical History: hysterectomy, - - 2 c/s Psychiatric History: No pertinent psych hx CASE SUPERVISOR History: No pertinent CASE SUPERVISOR history Lives: Alone Smoking Status: Never smoker [...] management Code Visit Inpatient E AND M: 77727 Init Hosp L3 03/20/18 1304 <Electronically signed by Tom Gayle MD> Date Tom Gayle MD Cosigner Signature (if applicable): Date CC: Osmin Castillo MD; Maximus Foster MD Signed CBC-COMPLETE BLOOD CNT Collected: 03/16/2018 Status: F Source: [place] NO DIFF 11:31 AM [facility] TYPE CODE TESTS RESULT OUT OF [...] 11.4 Performed By: #### L100.0500, L500.2500 #### [facility] [address] [place], [place], [address] BASIC METABOLIC Collected: 03/16/2018 Status: F Source: [place] PROFILE (BMP) 11:31 AM [facility] TYPE CODE TESTS RESULT OUT OF [...] 7 Performed By: #### L100.0500, L500.2500 #### [facility] [address] [facility], [address] 12 LEAD ELECTROCARDIOGRAM Observed: 03/09/2018 Status: F Source: [place] 2:29 PM [facility] [address] [place] [address] 12 Lead EKG 03/06/18 2147 MR#: [id number] Acct: [id number] Name: LORI EDWARD Rep #: [id number] : 1965 52 From: Jeff Smith MD Attending Dr: Lonnie Jimenze DO Status: DIS IN Ordering Dr: Haja Muñoz MD Date: 03/06/18 Location: [facility] Sex: F C Admitted: 03/06/18 Test Reason : HEADACHE/HTN Blood Pressure : / mmHG Vent. Rate : 092 BPM Atrial Rate : 092 BPM P-R Int : 172 ms QRS Dur : 084 ms QT Int : 374 ms P-R-T Axes : 051 -09 034 degrees QTc Int : 462 ms Normal sinus rhythm Normal ECG Confirmed by JEFF SMITH MD ([id number]), newspaper editor managing TOOTIE CAGE ([id number]) on 03/09/2018 2:29:45 PM Referred By: OUSMANE Confirmed By:JEFF SMITH MD 03/09/18 1429 Date Jeff Smith MD CC: Osmin Castillo MD; Lonnie Jimenez DO; Haja Muñoz MD Signed DISCHARGE SUMMARY Observed: 03/09/2018 Status: F Source: [place] 9:19 AM [facility] Medical Records Department [address] [place] [address] Discharge Summary 03/09/18 0903 MR#: [id number] Acct: [id number] Name: SARITAWAYNE TINSLEYRA Up Rep #: [id number] : 1965 52 From: Lonnie Jimenez DO PCP: sOmin Castillo MD Status: DIS IN Y Location: [place] [address] Discharge Date and Diagnosis Date of Admission: [...] Hospital Course and Treatment Consultations 03/07/18 Consult: Onc/Wound/banana grader Routine Comment: Reason for Consult:: recent L fibula fx surgery Comments:: patient refused to have drsg taken off to assess Operations: None Procedures: None Summary of Care Provided: The patient is a 52 year old F who was seen in the emergency room at [facility] with chief complaint severe cephalgia and elevated [...] Benzoate [Alogliptin] 25 mg PO DAILY 05/28/17 Marisela Zhang U-100 46 unit SQ QHS 05/28/17 Montelukast [...] applicable Code Visit Inpatient E AND M: 71652 Disch Hosp 03/09/18918 <Electronically signed by Lonnie Jimenez DO> Date Lonnie Jimenez DO Cosigner Signature (if applicable): Date CC: Osmin Castillo MD; Lonnie Jimenez DO Signed DISCHARGE INSTRUCTION Observed: 03/08/2018 Status: F Source: [place] 12:17 PM [facility] Medical Records Department [address] [place] [address] Instructions for Home/Discharge Instructions 03/08/18 1214 MR#: [id number] Acct: [id number] Name: LORI EDWARD Rep #: [id number] : 1965 52 From: Lonnie Jimenez DO [...] 03/08/2018 Status: F Source: [place] 11:02 AM [facility] TYPE CODE TESTS RESULT OUT OF REFERENCE UNITS RANGE LAB L501.080 70-110 mg/dL High BEDSIDE GLU 165 Result Comment: MANAGEMENT OF PATIENT CARE PER NURSING PROTOCOL Performed By: #### L501.080 #### [facility] Point of Care [address] [place] [address] BEDSIDE GLUCOSE Collected: 03/08/2018 Status: F Source: [place] 6:56 AM [facility] TYPE CODE TESTS RESULT OUT OF REFERENCE UNITS RANGE LAB L501.080 70-110 mg/dL High BEDSIDE GLU 126 Result Comment: MANAGEMENT OF PATIENT CARE PER NURSING PROTOCOL Performed By: #### L501.080 #### [facility] Point of Care [address] [place] [address] URINALYSIS, COMPLETE Collected: 03/08/2018 Status: F Source: [place] 5:40 AM [facility] Order Comment: How was Urine Obtained? [...] Normal YEAST-URINE Performed By: #### L400.0001 #### [facility] [address] [place], [place], [address] HH, HEMOGLOBIN AND Collected: 03/08/2018 Status: F Source: [place] HEMATOCRIT 5:05 AM [facility] TYPE CODE TESTS RESULT OUT OF RANGE REFERENCE UNITS LAB L100.1300 12.0-15.0 g/dl Low HGB 8.5 LAB L100.1400 37-47 % Low HCT 28.1 Performed By: #### L100.0600 #### [facility] [address] [place], [address] BASIC METABOLIC Collected: 03/08/2018 Status: F Source: [place] PROFILE (BMP) 5:05 AM [facility] TYPE CODE TESTS RESULT OUT OF [...] GAP 6 Performed By: #### L500.2500 #### [facility] [address] [place], [address] Observed: 03/08/2018 Status: F Source: [place] CULTURE, URINE 5:00 AM [facility] Urine Culture #1 Below infection level. ORGANISM 1: Presumptive E. coli [place] Count <1000 MIX CULTURE Mixed contaminants. Submit a new specimen if indicated. ORGANISM 2: Mixed Gram Positive Organisms [place] Count >100,000 MIX CULTURE Mixed contaminants. Submit a new specimen if indicated. Performed By: #### M100.0650 #### [facility] [address] [place], [address] BEDSIDE GLUCOSE Collected: 03/07/2018 Status: F Source: [place] 9:11 PM [facility] TYPE CODE TESTS RESULT OUT OF REFERENCE UNITS RANGE LAB L501.080 70-110 mg/dL High BEDSIDE GLU 167 Result Comment: Insulin Given MANAGEMENT OF PATIENT CARE PER NURSING PROTOCOL Performed By: #### L501.080 #### [facility] Point of Care [address] [place] [address] BEDSIDE GLUCOSE Collected: 03/07/2018 Status: F Source: [place] 4:47 PM [facility] TYPE CODE TESTS RESULT OUT OF REFERENCE UNITS RANGE LAB L501.080 70-110 mg/dL High BEDSIDE GLU 139 Result Comment: MANAGEMENT OF PATIENT CARE PER NURSING PROTOCOL Performed By: #### L501.080 #### [facility] Point of Care [address] [place] [address] ECHOCARDIOGRAM COMPLETE Observed: 03/07/2018 Status: F Source: [place] 3:12 PM [facility] [address] [facility] [place] [address] Echo Complete 03/07/18 1322 MR#: [id number] Acct: [id number] Name: LORI EDWARD Jeovanny Rep #: [id number] : 1965 52 From: Reji Gu MD Attending Dr: Lonnie Jimenez DO Status: ADM IN Ordering Dr: Jeovanny Nicolas DO Date: 03/07/18 Location: U Sex: F C Admitted: 03/06/18 Reason For [...] Dictated: 03/07/18 1322 Date Transcribed: 03/07/18 1511 International Student Counselor: Signed BEDSIDE GLUCOSE Collected: 03/07/2018 Status: F Source: [place] 11:23 AM [facility] TYPE CODE TESTS RESULT OUT OF REFERENCE UNITS RANGE LAB L501.080 70-110 mg/dL High BEDSIDE GLU 147 Result Comment: MANAGEMENT OF PATIENT CARE PER NURSING PROTOCOL Performed By: #### L501.080 #### [facility] Point of Care [address] [place] [address] BEDSIDE GLUCOSE Collected: 03/07/2018 Status: F Source: [place] 6:33 AM [facility] TYPE CODE TESTS RESULT OUT OF REFERENCE UNITS RANGE LAB L501.080 70-110 mg/dL High BEDSIDE GLU 200 Result Comment: MANAGEMENT OF PATIENT CARE PER NURSING PROTOCOL Performed By: #### L501.080 #### [place] [facility] Point of Care [address] [place] [address] CBC W/DIFF, AUTOMATED Collected: 03/07/2018 Status: F Source: [place] 4:46 AM [facility] TYPE CODE TESTS RESULT OUT OF [...] Lymph 1.39 Performed By: #### L100.0100 #### [facility] [address] [place], [address] COMPREHENSIVE METABOLIC Collected: 03/07/2018 Status: F [facility] AM [facility] Order Comment: 'TROP' Serial specimen #1, [...] #### L500.4050, L500.4100, L501.2300, L501.4010, L501.5200 #### [facility] [address] [place], [place], [address] LIPID PROFILE Collected: 03/07/2018 Status: F Source: [place] 4:46 AM [facility] Order Comment: 'TROP' Serial specimen #1, [...] #### L500.4050, L500.4100, L501.2300, L501.4010, L501.5200 #### [facility] [address] [place], [place], [address] PHOSPHORUS Collected: 03/07/2018 Status: F Source: [place] 4:46 AM [facility] Order Comment: 'TROP' Serial specimen #1, #2 or #3: 3 'TROP' Serial specimen #1, #2, #3, or #4: 3 TYPE CODE TESTS RESULT OUT OF RANGE REFERENCE UNITS LAB L501.2300 2.5-4.9 mg/dL Normal PHOS 4.4 Performed By: #### L500.4050, L500.4100, L501.2300, L501.4010, L501.5200 #### [facility] [address] [place], [place], [address] TROPONIN-I Collected: 03/07/2018 Status: F Source: [place] 4:46 AM [facility] Order Comment: 'TROP' Serial specimen #1, [...] Not every elevated troponin is indicative of IA. These values should be used with clinical judgement in examining the patient's clinical picture for diagnosis. To establish a diagnosis of IA versus myocardial injury, there must be a demonstrated rise and/or fall in the troponin values, in addition to ischemic symptoms, EKG changes, new regional wall motion abnormality, and/or angiographical evidence. PLEASE NOTE: REFERENCE RANGES EDITED 17 Performed By: #### L500.4050, L500.4100, L501.2300, L501.4010, L501.5200 #### [facility] [address] [place], [address] MAGNESIUM Collected: 03/07/2018 Status: F Source: [place] 4:46 AM [facility] Order Comment: 'TROP' Serial specimen #1, #2 or #3: 3 'TROP' Serial specimen #1, #2, #3, or #4: 3 TYPE CODE TESTS RESULT OUT OF RANGE REFERENCE UNITS LAB L501.5200 1.6-2.6 mg/dL Normal MG 1.7 Performed By: #### L500.4050, L500.4100, L501.2300, L501.4010, L501.5200 #### [facility] [address] [place], [address] BRAIN WITHOUT Observed: 03/07/2018 Status: F Source: [place] CONTRAST 2:57 AM [facility] [address] [place] [address] Brain without Contrast MR#: [id number] Acct: [id number] Name: LORI EDWARD Rep #: [id number] : 1965 F 52 From: Landry Yoder MD PCP: Osmin Castillo MD Status: ADM IN Study: Brain without Contrast Date of Exam: 03/07/18 Exam# [id number] Ordering Dr: Jeovanny Nicolas DO STUDY: MRI [...] of acute infarct or hemorrhage. Electronically Signed: Lanrdy Yoder MD at 10:26 EST Tel , Service support , CC: Berta Nicolas; Osmin Castillo MD International Student Counselor: Signed MRA NECK WITHOUT Observed: 03/07/2018 Status: F Source: [place] CONTRAST 2:57 AM [facility] [place] [address] MRA Neck without Contrast MR#: [id number] Acct: [id number] Name: LORI EDWARD Rep #: [id number] : 1965 F 52 From: Landry Yoder MD PCP: Osmin Castillo MD Status: ADM IN Study: MRA Neck without Contrast Date of Exam: 03/07/18 Exam# [id number] Ordering Dr: Jeovanny Nicolas DO STUDY: MRA [...] , CC: Berta Nicolas; Osmin Castillo MD International Student Counselor: Signed MRA HEAD ONLY WITHOUT Observed: 03/07/2018 Status: F Source: [place] CONTRAST 2:57 AM [facility] [address] [place] [address] MRA Head ONLY without Contrast MR#: [id number] Acct: [id number] Name: LORI EDWARD Rep #: [id number] : 1965 F 52 From: Crescencio Buenrostro MD PCP: Osmin Castillo MD Status: ADM IN Study: MRA Head ONLY without Contrast Date of Exam: 03/07/18 Exam# [id number] Ordering Dr: Jeovanny Nicolas DO STUDY: MRA OF THE HEAD WITHOUT CONTRAST REASON FOR EXAM: Female, 52 years old. Headache, confusion and slurred speech since yesterday. TECHNIQUE: 3-D asia-dd-sryjgu (TOF) imaging was performed with MIPs. The [...] There is no demonstrated aneurysm of the [place]. There is no major vessel occlusion or hemodynamically significant stenosis. There is no demonstrated abnormality of the visualized brain. MRI/MRA Head ONLY without Contrast IMPRESSION: Normal MRA of the head Electronically Signed: Crescencio Buenrostro MD at 11:01 EST , Service support , CC: Berta Nicolas; Osmin Castillo MD International Student Counselor: Signed HISTORY AND PHYSICAL Observed: 03/07/2018 Status: F Source: [place] EXAM 2:56 AM [facility] Medical Records Department [address] [place] [address] History and Physical 03/07/18 0108 MR#: [id number] Acct: [id number] Name: LORI EDWARD Rep #: [id number] : 1965 52 From: Jeovanny Nicolas DO PCP: Osmin Castillo MD Status: ADM IN Location: [place] [address] Problem List (1) Hypertensive urgency Status: Acute [...] who presented to the emergency department at [facility] on 03/06/2018 complaining of a severe headache. [...] c/s Psychiatric History: No pertinent psych hx CASE SUPERVISOR History: No pertinent CASE SUPERVISOR history Lives: Alone Smoking Status: Never smoker [...] ordered Code Visit Inpatient E AND M: 89366 Init Hosp L3 03/07/18 0256 <Electronically signed by Jeovanny Nicolas DO> Date M Amanda Nicolas DO [facility] Signature: Date (if applicable) CC: Berta Nicolas; Osmin Castillo MD Signed TROPONIN-I Collected: 03/07/2018 Status: F Source: [place] 1:50 AM [facility] Order Comment: 'TROP' Serial specimen #1, #2 or #3: 2 RESULT(S) PREVIOUSLY REPORTED ON MANUAL REQUISITION DURING DOWNTIME. TYPE CODE TESTS RESULT OUT OF RANGE REFERENCE UNITS LAB L501.4010 <0.045 ng/mL Normal < 0.015 TROPONIN-I Result Comment: TROPONIN-I EXPECTED VALUES <0.045 Negative 0.045 - 0.590 Consistent with Cardiac Damage > OR = 0.600 Critical Value Not every elevated troponin is indicative of IA. These values should be used with clinical judgement in examining the patient's clinical picture for diagnosis. To establish a diagnosis of IA versus myocardial injury, there must be a demonstrated rise and/or fall in the troponin values, in addition to ischemic symptoms, EKG changes, new regional wall motion abnormality, and/or angiographical evidence. PLEASE NOTE: REFERENCE RANGES EDITED 17 Performed By: #### L501.4010 #### [facility] [address] [place], [address] EMERGENCY DEPARTMENT Observed: 03/06/2018 Status: F Source: [place] SUMMARY 10:54 PM [facility] Medical Records Department [address] [place] [address] Emergency Department Summary 03/06/18 2233 MR#: [id number] Acct: [id number] Name: LORI EDWARD Rep #: [id number] : 1965 52 From: Haja Muñoz MD [...] and diabetic This note was generated with Anygma dictation software. It may contain incorrect words, [...] your Primary Care Provider. Call [facility] ([phone]) or report to the closest Emergency Room. Call 911 if necessary. 03/06/18 9915 <Electronically signed by Haja Muñoz MD> Date Haja Muñoz MD Cosigner Signature (If Indicated): Date CC: Osmin Castillo MD PROTHROMBIN TIME W/INR Collected: 03/06/2018 Status: F Source: [place] 10:35 PM [facility] TYPE CODE TESTS RESULT OUT OF RANGE REFERENCE UNITS LAB L300.4150 11.7-14.9 SECONDS Normal PROTIME 12.9 LAB L300.4200 Normal INR 1.0 Performed By: #### L300.3900, L300.4310 #### [facility] [address] [place], [place], [address] PARTIAL THROMBOPLAST Collected: 03/06/2018 Status: F Source: [place] TIME 10:35 PM [facility] TYPE CODE TESTS RESULT OUT OF RANGE REFERENCE UNITS LAB L300.4310 24.1-36.2 Seconds Normal PTT 26.3 Performed By: #### L300.3900, L300.4310 #### [facility] [address] [place], [place], [address] CBC W/DIFF, AUTOMATED Collected: 03/06/2018 Status: F Source: [place] 10:10 PM [facility] TYPE CODE TESTS RESULT OUT OF [...] Lymph 1.48 Performed By: #### L100.0100 #### [facility] [address] [place], [place], [address] BASIC METABOLIC Collected: 03/06/2018 Status: F Source: [place] PROFILE (BMP) 10:10 PM [facility] TYPE CODE TESTS RESULT OUT OF [...] 7 Performed By: #### L500.2500, L501.4010 #### [facility] [address] [place], [address] TROPONIN-I Collected: 03/06/2018 Status: F Source: [place] 10:10 PM [facility] TYPE CODE TESTS RESULT OUT OF RANGE REFERENCE UNITS LAB L501.4010 <0.045 ng/mL Normal < 0.015 TROPONIN-I Result Comment: TROPONIN-I EXPECTED VALUES <0.045 Negative 0.045 - 0.590 Consistent with Cardiac Damage > OR = 0.600 Critical Value Not every elevated troponin is indicative of IA. These values should be used with clinical judgement in examining the patient's clinical picture for diagnosis. To establish a diagnosis of IA versus myocardial injury, there must be a demonstrated rise and/or fall in the troponin values, in addition to ischemic symptoms, EKG changes, new regional wall motion abnormality, and/or angiographical evidence. PLEASE NOTE: REFERENCE RANGES EDITED 17 Performed By: #### L500.2500, L501.4010 #### [facility] [address] [place], [address] THYROID STIM HORMONE Collected: 03/06/2018 Status: F Source: [place] (TSH) 10:10 PM [facility] TYPE CODE TESTS RESULT OUT OF RANGE REFERENCE UNITS LAB L501.9520 0.358-3.74 uIU/mL Normal TSH 1.03 Performed By: #### L501.9520 #### [facility] [address] [place], [address] HEMOGLOBIN A1C Collected: 03/06/2018 Status: F Source: [place] 10:10 PM [facility] TYPE CODE TESTS RESULT OUT OF RANGE REFERENCE UNITS LAB L501.9985 4.2-6.3 % High HGB A1C 7.9 Performed By: #### L501.9985 #### [facility] [address] [place], [address] BEDSIDE GLUCOSE Collected: 03/06/2018 Status: F Source: [place] 10:07 PM [facility] TYPE CODE TESTS RESULT OUT OF REFERENCE UNITS RANGE LAB L501.080 70-110 mg/dL High BEDSIDE GLU 156 Result Comment: MANAGEMENT OF PATIENT CARE PER NURSING PROTOCOL Performed By: #### L501.080 #### [facility] Point of Care [address] [place] [address] BRAIN/HEAD WITHOUT Observed: 03/06/2018 Status: F Source: [place] CONTRAST 9:48 PM [facility] [address] [place] [address] Brain/Head without Contrast MR#: [id number] Acct: [id number] Name: LORI EDWARD Rep #: [id number] : 1965 F 52 From: Flaco Almonte MD PCP: Osmin Castillo MD Status: PRE ER Study: Brain/Head without Contrast Date of Exam: 03/06/18 Exam# [id number] Ordering Dr: Haja Muñoz MD STUDY: CT [...] CC: Osmin Castillo MD; Haja Muñoz MD International Student Counselor: Signed CHEST 1 VIEW Observed: 03/06/2018 Status: F Source: [place] 9:48 PM [facility] [address] [place] [address] Chest 1 View MR#: [id number] Acct: [id number] Name: LORI EDWARD Rep #: [id number] : 1965 F 52 From: Flaco Almonte MD PCP: Osmin Castillo MD Status: REG ER Study: Chest 1 View Date of Exam: 03/06/18 Exam# [id number] Ordering Dr: Haja Muñoz MD STUDY: X-RAY CHEST REASON FOR EXAM: Female, 52 years old. Headache, hypertension TECHNIQUE: Single AP portable view of the chest. COMPARISON: Previous study of 02/15/2018 FINDINGS: screening nurse leads are present. The lungs are clear [...] CC: Osmin Castillo MD; Haja Muñoz MD International Student Counselor: Signed OPERATIVE REPORT Observed: 02/28/2018 Status: F Source: [place] 6:26 PM [facility] Medical Records Department [address] [place] [address] Operative Report 02/28/18 1754 MR#: [id number] Acct: [id number] Name: LORI EDWARD Rep #: [id number] : 1965 52 From: Ashanti Sotomyaor DPM PCP: Osmin Castillo MD Status: [place] [facility] [place] [facility] [place] of Operation Date of Procedure: 02/27/18 Pre-Operative Diagnosis: L maisonneuve fracture with syndesmotic instability Post-Operative Diagnosis: same Surgery/Procedure Performed:: ORIF left maisonneuve fracture and syndesmotic stabilization Description of Surgical Findings:: see dictation set up mechanic crown assembly machine: Imani Salgado Type of Anesthesia:: Spinal/Supplemental Specimen's [...] No guarantees were given. Procedure: On 02/28/2018 Lroi Edward was visually and verbally identified in [...] were found to be correct. Grafts/Implants Used: Danilo 3.5 cortical screws and washers x 2 - Complications none - Admit VTE Documentation VTE Present on Admission: No VTE Mechan Device Prophylaxis: Knee High CRUZ Hose VTE Pharm Prophylaxis ordered?: Yes 02/28/18 1826 <Electronically signed by Ashanti Sotomayor DPM> Date Ashanti Sotomayor DPM CC: SHERMAN Sotomayor; Osmin Castillo MD Signed BEDSIDE GLUCOSE Collected: 02/27/2018 Status: F Source: [place] 12:08 PM [facility] TYPE CODE TESTS RESULT OUT OF REFERENCE UNITS RANGE LAB L501.080 70-110 mg/dL High BEDSIDE GLU 153 Result Comment: MANAGEMENT OF PATIENT CARE PER NURSING PROTOCOL Performed By: #### L501.080 #### [facility] Point of Care [address] [facility] [place] [address] DISCHARGE INSTRUCTION Observed: 02/27/2018 Status: F Source: [place] 11:25 AM [facility] Medical Records Department [address] [place] [address] Instructions for Home/Discharge Instructions 02/27/18 1119 MR#: [id number] Acct: [id number] Name: LORI EDWARD Rep #: [id number] : 1965 52 From: Ashanti Sotomayor DPM PCP: Osmin Castillo MD Status: [place] [facility] Discharge Activity: May Not Drive, May not [...] Days #28 cap 02/27/18 Hydrocodone Bitart/Apap 5-325 [[place] 5MG-325MG] 1 tab PO Q4H PRN PRN 7 Days #28 tab 02/27/18 Primary Care Physician: John Castillo MD [Primary Care Provider] - Test Results: Test results from this visit will be discussed in further detail at your follow-up appointment, if applicable. Please Follow Up With: Ashanti Sotomayor DPM - F/u at previously scheduled post operative appointment Proposed Discharge Date: 02/27/18 02/27/18 1125 <Electronically signed by Ashanti Sotomayor DPM> Date Ashanti Sotomayor DPM CC: Osmin Castillo MD ANKLE MIN 3 VIEWS Observed: 02/27/2018 Status: F Source: [place] 11:11 AM [facility] [address] [place] [address] Ankle min 3 Views MR#: [id number] Acct: [id number] Name: LORI EDWARD Rep #: [id number] : 1965 F 52 From: Mauro Gannon MD PCP: Osmin Castillo MD Status: [facility] Study: Ankle min 3 Views Date of Exam: 02/27/18 Exam# [id number] Ordering Dr: Ashanti Sotomayor DPM STUDY: X-RAY [...] Mauro Gannon MD at 15:38 EST Tel [phone], Service support , CC: SHERMAN Sotomayor; Osmin Castillo MD International Student Counselor: Signed TIBIA AND FIBULA Observed: 02/27/2018 Status: F Source: [place] 2 VIEWS 11:11 AM [facility] REPOS[facility] [address] [place] [address] Tibia AND Fibula 2 Views MR#: [id number] Acct: [id number] Name: LORI EDWARD Rep #: [id number] : 1965 F 52 From: Mauro Gannon MD PCP: Osmin Castillo MD Status: [facility] Study: Tibia AND Fibula 2 Views Date of Exam: 02/27/18 Exam# [id number] Ordering Dr: Ashanti Sotomayor DPM STUDY: X-RAY [...] Mauro Gannon MD at 15:40 EST Tel [phone], Service support , CC: SHERMAN Sotomayor; Osmin Castillo MD International Student Counselor: Signed BEDSIDE GLUCOSE Collected: 02/27/2018 Status: F Source: [place] 7:51 AM [facility] TYPE CODE TESTS RESULT OUT OF REFERENCE UNITS RANGE LAB L501.080 70-110 mg/dL High BEDSIDE GLU 167 Result Comment: MANAGEMENT OF PATIENT CARE PER NURSING PROTOCOL Performed By: #### L501.080 #### [facility] Point of Care [address] [place] [address] PROTHROMBIN TIME W/INR Collected: 02/27/2018 Status: F Source: [place] 7:40 AM [facility] Order Comment: Reason for Laboratory Test PREOP TYPE CODE TESTS RESULT OUT OF RANGE REFERENCE UNITS LAB L300.4150 11.7-14.9 SECONDS Normal PROTIME 13.1 LAB L300.4200 Normal INR 1.0 Performed By: #### L300.3900, L300.4310 #### [facility] [address] [place], [address] PARTIAL THROMBOPLAST Collected: 02/27/2018 Status: F Source: [place] TIME 7:40 AM [facility] Order Comment: Reason for Laboratory Test PREOP TYPE CODE TESTS RESULT OUT OF RANGE REFERENCE UNITS LAB L300.4310 24.1-36.2 Seconds Normal PTT 27.5 Performed By: #### L300.3900, L300.4310 #### [facility] [address] [facility] [place], [address] ANKLE MIN 3 VIEWS Observed: 02/27/2018 Status: F Source: [place] 12:08 AM [facility] [address] [place] [address] Ankle min 3 Views MR#: [id number] Acct: [id number] Name: OSIELWAYNE LARRYRA Up Rep #: [id number] : 1965 F 52 From: Mauro Gannon MD PCP: Osmin Castillo MD Status: [facility] Study: Ankle min 3 Views Date of Exam: 02/27/18 Exam# [id number] Ordering Dr: Ashanti Sotomayor DPM STUDY: X-RAY [...] Mauro Gannon MD at 14:29 EST Tel [phone], Service support , CC: SHERMAN Sotomayor; Osmin Castillo MD International Student Counselor: Signed CHEST PA AND LATERAL Observed: 02/15/2018 Status: F Source: [place] 4:37 PM [facility] [address] [place] [address] Chest PA and Lateral MR#: [id number] Acct: [id number] Name: LORI EDWARD Rep #: [id number] : 1965 F 52 From: Horacio Pereyra MD PCP: sOmin Castillo MD Status: REG CLI Study: Chest PA and Lateral Date of Exam: 02/15/18 Exam# [id number] Ordering Dr: John Castillo MD HISTORY: SOB [...] Service support , CC: Osmin Castillo MD International Student Counselor: Signed KNEE 4 OR MORE Observed: 02/15/2018 Status: F Source: [place] VIEWS 4:37 PM [facility] [address] [place] [address] Knee 4 or More Views MR#: [id number] Acct: [id number] Name: LORI EDWARD Rep #: [id number] : 1965 F 52 From: Horacio Pereyra MD PCP: Osmin Castillo MD Status: REG CLI Study: Knee 4 or More Views Date of Exam: 02/15/18 Exam# [id number] Ordering Dr: John Castillo MD HISTORY: PATIENT [...] Service support , CC: Osmin Castillo MD International Student Counselor: Signed CBC W/DIFF, AUTOMATED Collected: 02/15/2018 Status: F Source: [place] 4:36 PM [facility] TYPE CODE TESTS RESULT OUT OF [...] Lymph 1.79 Performed By: #### L100.0100 #### [facility] [address] [place], [place], [address] BASIC METABOLIC Collected: 02/15/2018 Status: F Source: [place] PROFILE (BMP) 4:36 PM [facility] TYPE CODE TESTS RESULT OUT OF [...] 6 Performed By: #### L500.2500, L503.6150 #### [facility] [address] [place], [address] IRON Collected: 02/15/2018 Status: F Source: [place] 4:36 PM [facility] TYPE CODE TESTS RESULT OUT OF RANGE REFERENCE UNITS LAB L503.6150 50-170 ug/dL Low IRON 47 Performed By: #### L500.2500, L503.6150 #### [facility] [address] [place], [address] PULMONARY VISIT REPORT Observed: 12/14/2017 Status: F Source: [place] 2:29 PM [facility] [address] [place], [place] [address] OFFICE VISIT Date of Service: 12/14/17 MR#: [id number] Acct: [id number] Name: LORI EDWARD Rep #: [id number] : 1965 Provider: Onur Malave MD Age/Sex: 52/F Location: [facility] Status: Signed Assessment AND Plan 1. DARCY [...] of 0.6 and well-controlled leak. Intake Vital Signs12/14/17 Height 5 ft 6 in 12/14/17 Weight: 108.862 kg Intake Visit Reasons: 3 M FU Chief Complaint: DARCY Automatic Clipper Required: No Is patient in pain?: No Allergies Latex, Natural Rubber Allergy (Verified 12/14/17 08:01) Rash Penicillins Allergy (Verified 12/14/17 08:01) Swelling lactose Adverse Reaction (Verified 12/14/17 08:01) Diarrhea Medications albuterol sulfate HFA 90 mcg/actuation aerosol inhaler 2 puff INHALATION Q4H PRN g 04/11/17 [History Confirmed 12/14/17] Alogliptin Benzoate [Alogliptin] 25 mg PO DAILY 05/28/17 [History Confirmed 12/14/17] Basaglmarkel [place] U-100 46 unit SQ QHS 05/28/17 [History [...] 10/29/17 [Rx Confirmed 12/14/17] Hydrocodone Bitart/Apap 5-325 [[place] 5/325] 1 - 2 tab PO Q4H PRN PRN 4 Days #12 tab 10/29/17 [Rx Confirmed 12/14/17] fluticasone 100 mcg-vilanterol 25 mcg/dose powder for inhalation 1 inh INHALATION Q24H #60 ea 12/14/17 [Rx Confirmed 12/14/17] PFSH Medical History Iron deficiency anemia (Acute) [...] F Source: [place] PROFILE (BMP) 7:36 AM [facility] Order Comment: Order Date: 11/16/17 Order Info: 0667-1 - BMP Order Info: 73203-0 - LIPID TYPE CODE TESTS RESULT OUT [...] GAP 6 Performed By: #### L500.2500 #### [facility] [address] [place], [address] LIPID PROFILE Collected: 11/25/2017 Status: F Source: [place] 7:36 AM [facility] Order Comment: Order Date: 11/16/17 Order Info: 0667-1 - BMP Order Info: 22994-7 - LIPID TYPE CODE TESTS RESULT OUT [...] VLDL 18 Performed By: #### L500.4100 #### [facility] [address] [place], [address] URINALYSIS, COMPLETE Collected: 11/21/2017 Status: F Source: [place] 4:45 PM [facility] Order Comment: Order Date: 11/16/17 Order Info: 12685-9 - [facility] How was Urine Obtained? [employer] TO SPECIFY TYPE CODE TESTS RESULT OUT [...] URINE SEEN Performed By: #### L400.0001 #### [facility] [address] [place], [address] Observed: 11/21/2017 Status: F Source: [place] CULTURE, URINE 4:45 PM [facility] Order Date: 11/16/17 Order Info: 630-4 - [facility] Urine Culture There are no CLSI standards for interpretation of this Drug/Organism combination. ORGANISM 1: Pediococcus pentosaceus [place] Count >100,000 Performed By: #### M100.0650 #### [facility] [address] [place] [address], [address] EMERGENCY DEPARTMENT Observed: 11/01/2017 Status: F Source: [place] SUMMARY 11:34 PM [facility] Records Department [address] [place] [address] Emergency Department Summary 11/01/17 2152 MR#: [id number] Acct: [id number] Name: LORI EDWARD Rep #: [id number] : 1965 52 From: Demarco Gomez MD [...] range of motion. 5 out of 5 design drafter strength bilaterally. Dorsi plantar flexion intact. Back [...] Treatment: Patient be discharged home with a Sharelook home pack. Treatment Plan: Follow-up with your primary care physician. Disposition: Discharge Impression: Acute back pain status post fall several days ago. 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 It may contain incorrect words, [...] your Primary Care Provider. Call [facility] ([phone]) or report to the closest Emergency Room. Call 911 if necessary. 11/01/17 2334 <Electronically signed by Demarco Gomez MD> Date Demarco Gomez MD Cosigner Signature (If Indicated): Date CC: Osmin Castillo MD DISCHARGE INSTRUCTION Observed: 11/01/2017 Status: F Source: [place] 11:34 PM [facility] Department [address] [place] [address] Discharge Instruction 11/01/17 2156 MR#: [id number] Acct: [id number] Name: WAGNERLORI M Rep #: [id number] : 1965 52 From: Demarco Gomez MD PCP: Osmin Castillo MD Status: DEP ER ED Disposition - Plan for ED Patient: Disposition: Home or Assisted Living Chief Complaint: Back Instructions: ED Neck Back Pain General Referrals: John Castillo MD [Primary Care Provider] - As soon as possible Additional Instructions: [place] for more severe pain otherwise Tylenol and Motrin. Call and follow-up your primary care physician. Return if any bowel or bladder incontinence or leg weakness. What to do if you have Problems For any increased pain, shortness of breath, bleeding, nausea or vomiting, chest pain, or any unexpected problems, contact your Primary Care Provider. Call [facility] ([phone]) or report to the closest Emergency Room. Call 911 if necessary. 11/01/17 2334 <Electronically signed by Demarco Gomez MD> Date Demarco Gomez MD Cosigner Signature (If Indicated): Date CC: Osmin Castillo MD EMERGENCY DEPARTMENT Observed: 10/29/2017 Status: F Source: [place] SUMMARY 3:43 PM [facility] Department [address] [place] [address] Emergency Department Summary 10/29/17 0835 MR#: [id number] Acct: [id number] Name: LORI EDWARD Rep #: [id number] : 1965 52 From: Doe Panda MD [...] Lumbar strain This note was generated with Anygma dictation software. It may contain incorrect words, spelling, and punctuation that were not noted in review of the chart prior to signing ED Disposition - Plan for ED Patient: Disposition: Home or Assisted Living Chief Complaint: Back Instructions: ED Sprain Strain Lumbar Prescriptions: Hydrocodone Bitart/Apap 5-325 [[place] 5/325] 1 - 2 tab PO Q4H [...] your Primary Care Provider. Call [facility] ([phone]) or report to the closest Emergency Room. Call 911 if necessary. 10/29/17 1543 <Electronically signed by Doe Panda MD> Date Doe Panda MD Cosigner Signature (If Indicated): Date CC: Osmin Castillo MD THORACIC SPINE 2 Observed: 10/29/2017 Status: F Source: [place] ROCK 8:38 AM [facility] [address] [place] [address] Thoracic Spine 2 Views MR#: [id number] Acct: [id number] Name: LORI EDWARD Rep #: [id number] : 1965 F 52 From: Milton Walker MD PCP: Osmin Castillo MD Status: REG ER Study: Thoracic Spine 2 Views Date of Exam: 10/29/17 Exam# [id number] Ordering Dr: Doe Panda MD STUDY: X-RAY [...] CC: Osmin Castillo MD; Doe Panda MD International Student Counselor: Signed LUMBAR SPINE 2 OR 3 Observed: 10/29/2017 Status: F Source: [place] VIEWS 8:38 AM [facility] RE[facility] [address] [place] [address] Lumbar Spine 2 or 3 Views MR#: [id number] Acct: [id number] Name: LORI EDWARD Rep #: [id number] : 1965 F 52 From: Milton Walker MD PCP: Osmin Castillo MD Status: REG ER Study: Lumbar Spine 2 or 3 Views Date of Exam: 10/29/17 Exam# [id number] Ordering Dr: Doe Panda MD STUDY: X-RAY [...] CC: Osmin Castillo MD; Doe Panda MD International Student Counselor: Signed PULMONARY VISIT REPORT Observed: 10/26/2017 Status: F Source: [place] 2:58 PM [facility] [address] [place] [address] OFFICE VISIT Date of Service: 10/26/17 MR#: [id number] Acct: [id number] Name: LORI EDWARD Rep #: [id number] : 1965 Provider: Dunia Hill Age/Sex: 52/F [facility] Status: Signed Assessment AND Plan 1. DARCY [...] Follow-up as previously scheduled on 12/14/17 with [facility]. HPI 1 M FU: Chief Complaint: Daytime [...] Reasons: 1 M FU Chief Complaint: DARCY Automatic Clipper Required: No DME Vendor: [employer] Accompanied by: Self Is patient in pain?: [...] mg PO BID 09/21/17 [History Confirmed 09/21/17] [facility] Medical History Iron deficiency anemia (Acute) Diarrhea [...] Diagnoses DARCY (obstructive sleep apnea) G47.33 10/26/17 4703 <Electronically signed by Dunia PYLE> Date Dunia PYLE Cosigner Signature: Date (if applicable) CC: Osmin Castillo MD EMERGENCY DEPARTMENT Observed: 10/10/2017 Status: F Source: [place] SUMMARY 7:20 AM [facility] Medical Records Department [address] [place] [address] Emergency Department Summary 09/17/17 1606 MR#: [id number] Acct: [id number] Name: LORI EDWARD Rep #: [id number] : 1965 52 From: Yariel Kruse MD [...] extremity edema This note was generated with Olive Mediaation software. It may contain incorrect words, spelling, [...] your Primary Care Provider. Call [facility] ([phone]) or report to the closest Emergency Room. Call 911 if necessary. 10/10/17719 <Electronically signed by Yariel Kruse MD> Date Yariel Kruse MD Cosigner Signature (If Indicated): Date CC: Osmin Castillo MD DISCHARGE INSTRUCTION Observed: 10/10/2017 Status: F Source: S[place] 7:20 AM [facility] Medical Records Department [address] [place] [address] Discharge Instruction 09/17/17 1608 MR#: [id number] Acct: [id number] Name: LORI EDWARD Rep #: [id number] : 1965 52 From: Yariel Kruse MD [...] your Primary Care Provider. Call [facility] ([phone]) or report to the closest Emergency Room. Call 911 if necessary. 10/10/17719 <Electronically signed by Yariel Kruse MD> Date Yariel Lopez Signature (If Indicated): Date CC: Osmin Castillo MD PULMONARY VISIT REPORT Observed: 09/22/2017 Status: F Source: [place] 9:58 AM [facility] [place] [address] [place] [address] OFFICE VISIT Date of Service: 09/21/17 MR#: [id number] Acct: [id number] Name: LORI EDWARD Rep #: [id number] : 1965 Provider: Dunia Hill Age/Sex: 52/F Location: [facility]PM[facility] Status: Signed Assessment AND Plan 1. DARCY [...] or thrush. She has not added any rsrf-dvi-fhincvz medications for her symptoms. Complaints report for [...] mg PO BID 09/21/17 [History Confirmed 09/21/17] [facility] Medical History Iron deficiency anemia (Acute) Diarrhea [...] 09/17/2017 Status: F Source: S[place] 4:41 PM [facility] TYPE CODE TESTS RESULT OUT OF RANGE REFERENCE UNITS LAB L501.080 70-110 mg/dL Normal BEDSIDE GLU 71 Result Comment: Snack Given MANAGEMENT OF PATIENT CARE PER NURSING PROTOCOL Performed By: #### L501.080 #### [facility] [address] [facility] [place], [place] [address] BEDSIDE GLUCOSE Collected: 09/17/2017 Status: F Source: [place] 4:21 PM [facility] TYPE CODE TESTS RESULT OUT OF REFERENCE UNITS RANGE LAB L501.080 70-110 mg/dL Low BEDSIDE GLU 60 Result Comment: MANAGEMENT OF PATIENT CARE PER NURSING PROTOCOL Performed By: #### L501.080 #### [facility] Point of Care [address] [facility] [place] [address] MISCELLANEOUS LAB Collected: 09/15/2017 Status: F Source: [place] PROCEDURE 3:24 PM [facility] Order Comment: Comments: VITK [id number] FZ PROTECT FROM LIGHT Test(s) Ordered: VITK [id number] FZ PROTECT FROM LIGHT TYPE CODE TESTS RESULT OUT OF RANGE REFERENCE UNITS LAB L801.1541 Normal MISC LAB TEST Result Comment: TEST RESULT LIMITS Vitamin K1 0.21 ng/mL 0.13 - 1.88 TESTING PERFORMED AT [facility]. ORIGINAL REPORT ON FILE IN LAB CONTAINS ADDITIONAL TEST SITE INFORMATION. Performed By: #### L801.1541 #### [facility] [address] [place], [address] BASIC METABOLIC Collected: 09/15/2017 Status: F Source: [place] PROFILE (BMP) 3:14 PM [facility] Order Comment: Order Date: 08/30/17 Order Info: 0667-1 - BMP Order Info: 1798-8 - ASHLEY Order Info: 3040-3 - LIPASE Comments: VITK [id number] FZ PROTECT FROM LIGHT TYPE CODE TESTS [...] Performed By: #### L500.2500, L501.2400, L501.2450 #### [facility] [address] [place], [address] #### L3300.0960, L3400.0920 #### [facility] (refer to report for specific site) refer to report for address and phone number AMYLASE Collected: 09/15/2017 Status: F Source: [place] 3:14 PM [facility] Order Comment: Order Date: 08/30/17 Order Info: 666-04 - BMP Order Info: 1797-11 - ASHLEY Order Info: 3 - LIPASE Comments: VITK [id number] FZ PROTECT FROM LIGHT TYPE CODE TESTS RESULT OUT OF RANGE REFERENCE UNITS LAB L501.2400 25-115 U/L Normal ASHLEY 42 Performed By: #### L500.2500, L501.2400, L501.2450 #### [facility] [address] [place], [address] #### L3300.0960, L3400.0920 #### [facility] (refer to report for specific site) refer to report for address and phone number LIPASE Collected: 09/15/2017 Status: F Source: [place] 3:14 PM [facility] Order Comment: Order Date: 08/30/17 Order Info: 666-04 - BMP Order Info: 1797-11 - ASHLEY Order Info: 3 - LIPASE Comments: VITK [id number] FZ PROTECT FROM LIGHT TYPE CODE TESTS RESULT OUT OF RANGE REFERENCE UNITS LAB L501.2450 73-393 U/L Normal LIPASE 227 Performed By: #### L500.2500, L501.2400, L501.2450 #### [facility] [address] [place], [address] #### L3300.0960, L3400.0920 #### [facility] (refer to report for specific site) refer to report for address and phone number VITAMIN D 1,25-DIHYDROXY Collected: 09/15/2017 Status: F Source: S[place] 3:14 PM [facility] Order Comment: Order Date: 08/30/17 Order Info: 05696-5 - SNGT530 TYPE CODE TESTS RESULT OUT OF RANGE REFERENCE UNITS LAB L3300.0960 19.9-79.3 pg/mL Normal VITD 1,25 25.8 01611 Result Comment: Performed at: [address] [id number] Office Machine Servicer Apprentice: Landry Dhaliwal MD, Phone: [phone] Performed By: #### L500.2500, L501.2400, L501.2450 #### [facility] [address] [place], [address] #### L3300.0960, L3400.0920 #### [facility] (refer to report for specific site) refer to report for address and phone number VITAMIN A, RETINOL Collected: 09/15/2017 Status: F Source: [place] 3:14 PM [facility] Order Comment: Order Date: 08/30/17 Order Info: 2923-1 - JOHANN Comments: VITK [id number] FZ PROTECT FROM LIGHT TYPE CODE TESTS RESULT OUT OF RANGE REFERENCE UNITS LAB L3400.0920 33.1-100.0 ug/dL Normal VIT A, 390273 49.3 Result Comment: Reference intervals for vitamin A determined from National Health and Nutrition Examination Survey, 6815-0071. Individuals with vitamin A less than 20 ug/dL are considered vitamin A deficient and those with serum concentrations less than 10 ug/dL are considered severely deficient. This test was developed and its performance characteristics determined by [employer]. It has not been cleared or approved by the Food and Drug Administration. Performed at: [address] [id number] Office Machine Servicer Apprentice: Landry Dhaliwal MD, Phone: [phone] Performed By: #### L500.2500, L501.2400, L501.2450 #### [facility] [address] [place], [address] #### L3300.0960, L3400.0920 #### [facility] (refer to report for specific site) refer to report for address and phone number BASIC METABOLIC Collected: 08/29/2017 Status: F Source: [place] PROFILE (BMP) 3:01 PM [facility] Order Comment: Order Date: 08/24/17 Order [...] GAP 9 Performed By: #### L500.2500 #### [facility] [address] [place], [place], [address] BNP,B-TYPE NATRIURETIC Collected: 08/07/2017 Status: F Source: [place] PEPTIDE 4:42 PM [facility] TYPE CODE TESTS RESULT OUT OF RANGE REFERENCE UNITS LAB L503.6620 0-100 pg/mL Normal B-TYPE 53.6 PRINCESS PEP Performed By: #### L503.6620 #### [facility] [address] [place], [address] CBC W/DIFF, AUTOMATED Collected: 08/07/2017 Status: F Source: S[place] 4:41 PM [facility] Order Comment: Order Date: 08/07/17 Order [...] #### L100.0100, L500.4050, L501.9520, L503.6150, L503.6550 #### [facility] [address] [place], [address] COMPREHENSIVE METABOLIC Collected: 08/07/2017 Status: F Source: SORAIDA MCKAY 4:41 PM [facility] Order Comment: Order Date: 08/07/17 Order [...] #### L100.0100, L500.4050, L501.9520, L503.6150, L503.6550 #### [facility] [address] [place], [place], [address] THYROID STIM HORMONE Collected: 08/07/2017 Status: F Source: S[place]AIDA (TSH) 4:41 PM [facility] Order Comment: Order Date: 08/07/17 Order Info: 785-04 - CMP Order Info: 3015-06 - TSH Order Info: 24984 - FE Order Info: 4 - DOYLE TYPE CODE TESTS RESULT OUT OF RANGE REFERENCE UNITS LAB L501.9520 0.358-3.74 uIU/mL Normal TSH 1.86 Performed By: #### L100.0100, L500.4050, L501.9520, L503.6150, L503.6550 #### [facility] [address] [place], [place], [address] IRON Collected: 08/07/2017 Status: F Source: BR[place] 4:41 PM [facility] REPOSITORY Order Comment: Order Date: 08/07/17 Order Info: 785-04 - CMP Order Info: 3015-06 - TSH Order Info: 24984 - FE Order Info: 2275-4 - DOYLE TYPE CODE TESTS RESULT OUT OF RANGE REFERENCE UNITS LAB L503.6150 50-170 ug/dL Low IRON 38 Performed By: #### L100.0100, L500.4050, L501.9520, L503.6150, L503.6550 #### [facility] [address] [place], [place], [address] FERRITIN Collected: 08/07/2017 Status: F Source: [place] 4:41 PM [facility] REPOSITORY Order Comment: Order Date: 08/07/17 Order Info: 0786- - CMP Order Info: 3 - TSH Order Info: 24984 - FE Order Info: 2274 - DOYLE TYPE CODE TESTS RESULT OUT OF RANGE REFERENCE UNITS LAB L503.6550 8-252 ng/mL Normal FERRITIN 144 Performed By: #### L100.0100, L500.4050, L501.9520, L503.6150, L503.6550 #### [facility] [address] [place], [address] FREE T3 Collected: 08/07/2017 Status: F Source: [place] 4:41 PM [facility] Order Comment: Order Date: 08/07/17 Order Info: 0786-1 - CMP Order Info: 3016-3 - TSH Order Info: 2494 - FE Order Info: 2276-4 - DOYLE TYPE CODE TESTS RESULT OUT OF RANGE REFERENCE UNITS LAB L501.47102 2.18-3.98 pg/mL Normal FREE T3 2.4 Performed By: #### L501.32014, L506.0400 #### [facility] [address] [facility] [place], [address] T4 FREE DIRECT Collected: 08/07/2017 Status: F Source: [place] 4:41 PM [facility] Order Comment: Order Date: 08/07/17 Order Info: 0786-1 - CMP Order Info: 3016-3 - TSH Order Info: 24984 - FE Order Info: 2276-4 - DOYLE TYPE CODE TESTS RESULT OUT OF RANGE REFERENCE UNITS LAB L506.0400 0.76-1.46 ng/dL Normal T4 FREE 1.14 DIRECT Performed By: #### L501.77843, L506.0400 #### [facility] [address] [place], [address] ABD INC DECUB Observed: 08/07/2017 Status: F Source: SORAIDA AND/OR ERECT 4:31 PM [facility] Services [address] [place] [address] Abd Inc Decub and/or Erect MR#: [id number] Acct: [id number] Name: WAGNERLORI M Rep #: [id number] : 1965 F 52 From: Bryon Roman DO PCP: Osmin Castillo MD Status: REG CLI Study: Abd Inc Decub and/or Erect Date of Exam: 08/07/17 Exam# [id number] Ordering Dr: John Castillo MD STUDY: X-RAY [...] Bryon Roman DO at 19:49 EDT Tel [phone], Service support , CC: Osmin Castillo MD International Student Counselor: Signed PULMONARY VISIT REPORT Observed: 06/16/2017 Status: F Source: [place] 12:43 PM [facility] [address] [place] [id number] OFFICE VISIT Date of Service: 06/16/17 MR#: [id number] Acct: [id number] Name: LORI EDWARD Rep #: [id number] : 1965 Provider: Dunia Hill Age/Sex: 52/F Location: [facility]PM[facility] Status: Signed Assessment AND Plan 1. DARCY [...] under the care of Dr. Castillo at [facility], here to follow up for sleep apnea. [...] ONCE #4 tab 06/16/17 [Rx Confirmed 06/16/17] [facility] Medical History Iron deficiency anemia (Acute) Diarrhea [...] EMERGENCY DEPARTMENT Observed: 05/29/2017 Status: F Source: [place] SUMMARY 7:03 AM [facility] Medical Records Department [address] [place] [address] Emergency Department Summary 05/28/17 1215 MR#: [id number] Acct: [id number] Name: LORI EDWARD Rep #: [id number] : 1965 52 From: Reji Daly DO PCP: Osmin Castillo MD Status: DEP ER - ER Visit Summary Date of Service: 05/28/17 Chief Complaint: Right elbow pain History of Present Illness: The patient is a 52 F who states that one week ago she tripped and fell sustaining a FOOSH injury to her right shoulder she went through [facility]. She had x-rays of the shoulder that [...] muscle spasm This note was generated with Anygma dictation software. It may contain incorrect words, [...] your Primary Care Provider. Call [facility] ([phone]) or report to the closest Emergency Room. Call 911 if necessary. 05/29/17 0703 <Electronically signed by Reji Daly DO> Date Reji Hooper Signature (If Indicated): Date CC: Osmin Castillo MD ELBOW MIN 3 VIEWS Observed: 05/28/2017 Status: F Source: [place] 12:11 PM [facility] [address] [place] [address] Elbow min 3 Views MR#: [id number] Acct: [id number] Name: LORI EDWARD Rep #: [id number] : 1965 F 52 From: Ashwin Chen PCP: Osmin Castillo MD Status: DEP ER Study: Elbow min 3 Views Date of Exam: 05/28/17 Exam# [id number] Ordering Dr: Reji Daly DO STUDY: X-RAY [...] CC: Osmin Castillo MD; Reji Daly DO International Student Counselor: Signed SHOULDER MIN 2 VIEWS Observed: 05/23/2017 Status: F Source: [place] 12:07 PM [facility] [address] [place] [address] Shoulder min 2 Views MR#: [id number] Acct: [id number] Name: LORI EDWARD Rep #: [id number] : 1965 F 52 From: Mauro Gannon MD PCP: Osmin Castillo MD Status: REG CLI Study: Shoulder min 2 Views Date of Exam: 05/23/17 Exam# [id number] Ordering Dr: John Castillo MD STUDY: X-RAY [...] x-ray examination of the shoulder. Electronically Signed: Mauor Gannon MD at 11:01 EST Tel [phone], Service support , CC: Osmin Castillo MD International Student Counselor: Signed PROGRESS Observed: 05/16/2017 Status: COMPLETED Source: [place] 4:39 PM [facility] REPOSITORY HNO ID: [id number] Author: Janice Jacob Service: (none) Author Type: Nurse Practitioner Type: Progress Notes Filed: 05/16/2017 4:46 PM Note Text: Patient is a 52 year old female presenting with ear problem. The history is provided by the patient. No paraprofessional interpreter was used. Ear Pain Associated symptoms include [...] CNP PROGRESS Observed: 05/16/2017 Status: COMPLETED Source: [place] 11:12 AM [facility] REPOSITORY HNO ID: [id number] Author: Dasha Kendall Service: (none) Author Type: Physician Type: Progress Notes Filed: 05/16/2017 11:17 AM Note Text: NAME: Lori Edward AGE: [age] year old Follow up visit for dysphagia/GERD and chronic diarrhea. Last seen: 2016 HISTORY Patients dysphagia is better after POEM [...] remarkable. She had c/diff in past (early 2017), but was treated successfully.diabetes is not very [...] of complication, not stated as uncontrolled dx 1988 PAST SURGICAL HISTORY PAST SURGICAL HISTORY Procedure [...] AM PROGRESS Observed: 05/16/2017 Status: COMPLETED Source: [place] 8:41 AM [facility] REPOSITORY HNO ID: [id number] Author: Padmini Aleman Service: (none) Author Type: [...] and 29.4 - CMP 02/11/17- Glucose 247 ALLERGIES ALLERGIES DATE TYPE / CODE NAME / CODE REACTION SEVERITY SOURCE 03/24/2018 Drug Penicillins/P03937 Swelling Unknown [place] Allergy/416 0476(RXNORM) [facility] 526547([facility] ED CT) Repository 03/24/2018 Drug Latex, Natural Rash Unknown [place] Allergy/416 Rubber/S211190406( [facility] Repository 03/24/2018 Drug lactose/F206659766 Diarrhea Unknown [place] Allergy/416 (RXNORM) [facility] 104698([facility] ED CT) Repository 04/11/2017 Drug gluten/D195084800( Nausea/Vom/Diar Unknown [place] Allergy/416 RXNORM) [facility] 621526([facility] ED CT) Repository 08/18/2016 DRUG LACTOSE DIARRHEA [facility] INGREDI/419 [address] [place] 809061(SNOM Repository ED CT) 06/24/2015 Drug PENICILLINS SWELLING [facility] Class/85603 [address] [place] 1003(SNOMED Repository CT) 01/30/2014 DRUG LATEX RASH [facility] INGREDI/419 [address] [place] 733063(SNOM Repository ED CT) ENCOUNTERS ENCOUNTERS ADMIT/DISCHARGE ACCOUNT ADMITTING ENCOUNTER LOCATION SOURCE NUMBER CLASS 03/24/2018/03/24/20 [id number] Emergency [address] ing:ED Repository 03/16/2018 [id number] Ambulatory [facility] ing:MTLAB Repository 03/06/2018/03/08/20 [id number] Ambulatory BMSBuilding:W [place] 18 [facility] Repository 03/06/2018/03/08/20 [id number] [place] [address] [facility] ing:PCURoom: Repository [id number]: 1 03/06/2018 [id number] [place]i, Ambulatory BMSBuilding:Daksha [place] MS.[facility] Repository 03/06/2018 [id number] [place], Ambulatory BMSBuilding:Daksha [place] MS.[facility] Repository 02/27/2018/02/28/20 [id number] Ambulatory [address] ing:SDCRoom: Repository AC18 02/15/2018 [id number] Ambulatory [facility] ing:MTLAB Repository 12/14/2017/12/15/19 [id number] Ambulatory BMSBuilding:B [place] [facility] [place] [place] 11/25/2017 [id number] Ambulatory [facility] ing:LAB Repository 11/21/2017 [id number] Ambulatory [facility] ing:MTLAB Repository 11/01/2017/11/02/19 [id number] Emergency [address] ing:ED Repository 10/29/2017/10/30/19 [id number] Emergency [place] 18 [facility] ing:ED Repository 10/26/2017/10/27/19 [id number] Ambulatory BMSBuilding:B [place] 18 [place].[facility] Repository 09/21/2017/09/22/19 [id number] Ambulatory BMSBuilding:B [place] 18 [facility] Hospital Repository 09/17/2017/09/18/19 [id number] Emergency [place] 18 [facility] ing:ED Repository 09/15/2017 [id number] Ambulatory General acute hospital Hospital ing:MTLAB Repository 08/29/2017 [id number] Ambulatory General acute hospital Hospital ing:MTLAB Repository 08/07/2017 [id number] Ambulatory General acute hospital Hospital ing:MTRAD Repository 06/16/2017/06/17/19 [id number] Ambulatory BMSBuilding:B [place] [facility] [place] [place] 05/28/2017/05/28/19 [id number] Emergency [place] 18 [facility] ing:ED Repository 05/23/2017 [id number] Ambulatory General acute hospital Hospital ing:MTRAD Repository 05/16/2017/05/16/19 [id number] Ambulatory [address] Repository 05/16/2017/05/16/19 [id number] Ambulatory [address] Repository PAYERS PAYERS ENCOUNTER GUARANTOR PAYER SUBSCRIBER SOURCE 03/24/2018 LORI Up Primary LORI [place] [id number] Insurance:CARESOURCEP CHROSTOWSKIDOB: [facility] Number: [id number], [place] [id number] Repository [address]Gpe: ([phone]) Date:2018-03-24P O [phone] () [address]ATTN: [place] [address]CS: 03/24/2018 Secondary NOT GIVENUNK [place] Insurance:SELF PAY [facility] Number: Effective Repository Date:2018-03-24 03/16/2018 LORI Up Primary LORI Up [place] [id number] Insurance:CARESOURCEP CHROSTOWSKIDOB: Community MARIA ELENA LNAPT olicy Number: [id number], [place] [id number] Repository [address]Hsx: ([phone]) Date:2018-03-16P O [phone] (HP) [address]ATTN: [place] [address]VK: 03/16/2018 Secondary NOT GIVENUNK [place] Insurance:SELF PAY [facility]: Effective Repository Date:2018-03-16 03/06/2018 LORI Up Primary LORI Up [place] [id number] Insurance:CARESOURCEP CHROSTOWSKIDOB: Community MARIA ELENA LNAPT olicy Number: [id number], [place] [id number] Repository [address]Msl: ([phone]) Date:2018-03-06P O [phone] (HP) [address]ATTN: [place] [address]PS: 03/06/2018 Secondary NOT GIVENUNK [place] Insurance:SELF PAY [facility] Number: Effective Repository Date:2018-03-06 03/06/2018 LORI Up Primary LORI Up [place] [id number] Insurance:CARESOURCEP CHROSTOWSKIDOB: Community MARIA ELENA LNAPT olicy Number: [id number], [place] [id number] Repository [address]Uvw: ([phone]) Date:2018-03-06P O [phone] (HP) [address]ATTN: [place] [address]AH: 03/06/2018 Secondary NOT GIVENUNK [place] Insurance:SELF PAY [facility] Number: Effective Repository Date:2018-03-06 03/06/2018 LORI Up Primary LORI Up [place] [id number] Insurance:CARESOURCEP CHROSTOWSKIDOB: Community MARIA ELENA LNAPT olicy Number: [id number], [place] [id number] Repository [address]Omj: ([phone]) Date:2018-03-06P O [phone] () [address]ATTN: [place] [address]IV: 03/06/2018 Secondary NOT GIVENUNK [place] Insurance:SELF PAY [facility] Number: Effective Repository Date:2018-03-06 03/06/2018 LORI Up Primary LORI Up [place] [id number] Insurance:CARESOURCEP CHROSTOWSKIDOB: Community MARIA ELENA LNAPT olicy Number: [id number], [place] [id number] Repository [address]Ecb: ([phone]) Date:2018-03-06P O [phone] () [address]ATTN: [place] [address]HK: 03/06/2018 Secondary NOT GIVENUNK [place] Insurance:SELF PAY [facility] Number: Effective Repository Date:2018-03-06 02/27/2018 LORI Up Primary LORI Up [place] [id number] Insurance:SELF INS CHROSTOWSKIDOB: Community MARIA ELENA LNAPT [facility] GROUPPolicy [id number], [place] Number: Repository [address]Als: [phone] [phone] (HP) Date:9319-19-50ADQDHE[facility] 147289BPTZCGGZ, [place] [address]QE: 02/27/2018 Secondary LORI Up [place] Insurance:CARESOURCEP CHROSTOWSKIDOB: Community olicy Number: [id number] Hospital [id number] Repository Date:2018-02-15P O [address]ATTN: [place] [address]PR: 02/27/2018 Tertiary NOT GIVENUNK [place] Insurance:SELF PAY [facility] Number: Effective Repository Date:2018-02-15 02/15/2018 LORI Up Primary LORI Up [place] [id number] Insurance:SELF INS CHROSTOWSKIDOB: Community MARIA ELENA LNAPT [facility] [id number], [place] HLPolicy Number: Repository [address]Mxl: [phone] [id number] [phone] (HP) Date:[id number] [facility]OS[facility] [address] [address]EIOXCQYEA, [place] [address]ED: 02/15/2018 Secondary LORI Up [place] Insurance:CARESOURCEP CHROSTOWSKIDOB: Community olicy Number: [id number] Hospital [id number] Repository Date:2018-02-15P O [address]ATTN: [place] [address]JP: 02/15/2018 Tertiary NOT GIVENUNK [place] Insurance:SELF PAY [facility] Number: Effective Repository Date:2018-02-15 12/14/2017 LORI Primary LORI Up [place] [id number] Insurance:CARESOURCEP CHROSTOWSKIDOB: Community MARIA ELENA LNAPT olicy Number: [id number], [place] [id number] Repository [address]Foo: (330) Date:2017-09-21P O [phone] () [address]ATTN: [place] [address]UY: 12/14/2017 Secondary NOT GIVENUNK [place] Insurance:SELF [facility] Effective Repository Date:2017-12-07 11/25/2017 LORI Primary LORI Up [place] [id number] Insurance:CARESOURCEP CHROSTOWSKIDOB: Community MARIA ELENA LNAPT olicy Number: [id number], [place] [id number] Repository [address]Asb: (330) Date:2017-11-25P O [phone] () [address]ATTN: [place] [address]HD: 11/25/2017 Secondary NOT GIVENUNK [place] Insurance:SELF PAY [facility]: Effective Repository Date:2017-11-25 11/21/2017 LORI Up [facility] LORI Up [place] [id number] Insurance:CARESOURCEP CHROSTOWSKIDOB: Community MARIA ELENA LNAPT olicy Number: [id number], [place] [id number] Repository [address]Wom: (330) Date:2017-11-21P O [phone] () [address]ATTN: [place] [address]QI: 11/21/2017 Secondary NOT GIVENUNK [place] Insurance:SELF PAY [facility] Number: Effective Repository Date:2017-11-21 11/01/2017 LORI Up [facility] LORI Up [place] [id number] Insurance:CARESOURCEP CHROSTOWSKIDOB: Community MARIA ELENA LNAPT olicy Number: [id number], [place] [id number] Repository [address]Tzy: (330) Date:2017-11-01P O [phone] () [address]ATTN: [place] [address]BR: 11/01/2017 Secondary NOT GIVENUNK [place] Insurance:SELF PAY [facility] Number: Effective Repository Date:2017-11-01 10/29/2017 LORI Up [facility] LORI Up [place] [id number] Insurance:CARESOURCEP CHROSTOWSKIDOB: Community MARIA ELENA LNAPT olicy Number: [id number], [place] [id number] Repository [address]Nfm: (330) Date:2017-10-29P O [phone] (HP) [address]ATTN: [place] [address]VA: 10/29/2017 Secondary NOT GIVENUNK [place] Insurance:SELF PAY [facility] Number: Effective Repository Date:2017-10-29 10/26/2017 LORI Up [facility] LORI Up [place] [id number] Insurance:CARESOURCEP CHROSTOWSKIDOB: Community MARIA ELENA LNAPT olicy Number: [id number], [place] [id number] Repository [address]Rre: (330) Date:2017-09-21P O [phone] () [address]ATTN: [place] [address]AS: 10/26/2017 Secondary NOT GIVENUNK [place] Insurance:SELF PAY [facility]: Effective Repository Date:2017-10-19 09/21/2017 LORI Up Primary LORI Up [place] [id number] Insurance:CARESOURCEP CHROSTOWSKIDOB: Community MARIA ELENA LNAPT olicy Number: [id number], [place] [id number] Repository [address]Oki: (330) Date:2017-09-12 O [phone] () [address]ATTN: [place] [address]MK: 09/21/2017 Secondary NOT GIVENUNK [place] Insurance:SELF PAY [facility] Number: Effective Repository Date:2017-09-15 09/17/2017 LORI Up [facility] LORI Up [place] [id number] Insurance:CARESOURCEP CHROSTOWSKIDOB: Community MARIA ELENA LNAPT olicy Number: [id number], [place] [id number] Repository [address]Duy: (330) Date:2017-09-17P O [phone] () [address]ATTN: [place] [address]GR: 09/17/2017 Secondary NOT GIVENUNK [place] Insurance:SELF PAY [facility] Number: Effective Repository Date:2017-09-17 09/15/2017 LORI Up [facility] LORI [place] [id number] Insurance:CARESOURCEP CHROSTOWSKIDOB: Community MARIA ELENA LNAPT olicy Number: [id number], [place] [id number] Repository [address]Xdt: (330) Date:2017-09-15P O [phone] () [address]ATTN: [place] [address]XF: 09/15/2017 Secondary NOT GIVENUNK [place] Insurance:SELF PAY [facility] Number: Effective Repository Date:2017-09-15 08/29/2017 LORI Up [facility] LORI Up [place] [id number] Insurance:CARESOURCEP CHROSTOWSKIDOB: Community MARIA ELENA LNAPT olicy Number: [id number], [place] [id number] Repository [address]Qzr: (330) Date:2017-08-29P O [phone] (HP) [address]ATTN: [facility]S [facility] [place] [address]OS: 08/29/2017 Secondary NOT GIVENUNK [place] Insurance:SELF PAY [facility] Number: Effective Repository Date:2017-08-29 08/07/2017 LORI Up [facility] LORI Up [place] [id number] Insurance:CARESOURCEP CHROSTOWSKIDOB: Community MARIA ELENA LNAPT olicy Number: [id number], [place] [id number] Repository [address]Yhj: (330) Date:2017-08-07P O [phone] (HP) [address]ATTN: [place] [address]WS: 08/07/2017 Secondary NOT GIVENUNK [place] Insurance:SELF PAY [facility] Number: Effective Repository Date:2017-08-07 06/16/2017 LORI Up [facility] LORI Up [place] [id number] Insurance:CARESOURCEP CHROSTOWSKIDOB: Community MARIA ELENA LNAPT olicy Number: [id number], [place] [id number] Repository [address]Idc: (330) Date:2017-06-05P O [phone] (HP) [address]ATTN: [facility]S [facility] [place] [address]JB: 06/16/2017 Secondary NOT GIVENUNK [place] Insurance:SELF PAY [facility] Number: Effective Repository Date:2017-06-05 05/28/2017 LORI Up Primary LORI [place] [id number] Insurance:CARESOURCEP CHROSTOWSKIDOB: Community MARIA ELENA LNAPT olicy Number: [id number], [place] [id number] Repository [address]Qxa: (330) Date:2017-05-28P O [phone] () [address]ATTN: [place] [address]VO: 05/28/2017 Secondary NOT GIVENUNK [place] Insurance:SELF PAY [facility] Number: Effective Repository Date:2017-05-28 05/23/2017 LORI Up Primary LORI [place] [id number] Insurance:CARESOURCEP CHROSTOWSKIDOB: Community MARIA ELENA LNAPT olicy Number: [id number], [place] [id number] Repository [address]Doe: (330) Date:2017-05-23P O [phone] () [address]ATTN: [place] [address]MW: 05/23/2017 Secondary NOT GIVENUNK [place] Insurance:SELF PAY [facility] Number: Effective Repository Date:2017-05-23
== END ==
PROVIDERS: Family Provider Family Medicine; PCP Family Medicine; Referring Provider Family Medicine; Visit Provider Family Medicine
DX: D50.9 Iron deficiency anemia, unspecified (principal); I16.0 Hypertensive urgency
CPT/HCPCS: 36415; 80048; 85027

== ENCOUNTER 2018-03-24 12:18 | Emergency (ER) | payer MEDICAID, SELFPAY ==
[2018-03-07 08:05] VITALS: BMI 41.5
[2018-03-24 12:20] VITALS: BP 209/104; PULSE 93; RESP 18; TEMP 36.4; O2SAT 95; BMI 40.3
[2018-03-24 12:46] VITALS: BP 221/118; PULSE 92; RESP 17
--- NOTE | 2018-03-24 13:35 | RAD_ITS ---
STUDY: X-RAY - LEFT FOOT CLINICAL: Female, 52 years old. Diabetic. Amputation. TECHNIQUE: 3 view(s) of the foot. COMPARISON: 05/06/2016. FINDINGS: Stable appearance of an amputation of the first digit. Cannot exclude soft tissue infection. Cannot completely exclude soft tissue air. There is a small calcific density approximately 4 mm size distal to the tip of the first metatarsal of uncertain origin. Subluxation seen of the second metatarsophalangeal joint. Small plantar spur. 2. Screws through the distal tibia and fibula. RAD/Foot min 3 Views IMPRESSION: No gross focal destructive process of the bones. No definite osteomyelitis but cannot be excluded on radiographs alone. Cannot exclude soft tissue infection. Cannot completely exclude soft tissue gas. Electronically Signed: Christian Nino MD at 14:41 EST , Service support ,
[2018-03-24] MEDS: diazePAM 5 MG Tablet PO (13:41)
--- NOTE | 2018-03-24 14:37 | ED.RN ---
SHORT LEG SPLINT APPLIED TO LLE BY DR. IRENE.
--- NOTE | 2018-03-24 14:39 | ED.DCSUM_ITS ---
- ER Visit Summary Date of Service: 03/24/18 Chief Complaint: Left foot pain History of Present Illness: The patient is a 52 F who underwent a fibular surgery for a fracture on February 27 by was to orthopedics. She states she had her stitches taken out on Monday and had a new splint put on. She states that on Monday she began have pain on the top part of her foot described as sharp and stabbing. She states it has become significantly more painful and was having difficulty sleeping last night. Physical Examination: Afebrile vital signs stable Patient has a posterior Ortho-Glass splint on. This was taken down. In doing so went through 3 layers of cotton in 3 separate layers of Diego wrap. When I took the splint off the patient stated that her pain was significant improved. The patient has a strong dorsalis pedis and posterior tibial pulse. Surgical and site is well-healing. I do not see any bruising on the foot or erythema. The patient has significant amount of loose skin associated with edematous tissue that has been compressed. Test Results: Foot films were negative for acute Emergency Department Course and Treatment: Splint was taken down and the patient feels significantly better. She still has had the occasional sharp pain at the distal end of the first metatarsal. I placed the patient back in a posterior Ortho-Glass splint. She also received a Valium which is helped. She will be d ischarged home to follow-up with her doctor. Impression: 1. Left foot pain 2. Splint by physician This note was generated with [employer] dictation software. It may contain incorrect words, spelling, and punctuation that were not noted in review of the chart prior to signing ED Disposition - Plan for ED Patient: Disposition: Home or Assisted Living Chief Complaint: Lower Extremity Injury Instructions: ED Splint Care Fiberglass Referrals: Ashanti Sotomayor DPM [STAFF PHYSICIAN] - Keep Jhonny appointment
[2018-03-24 15:04] VITALS: BP 185/89; PULSE 91; RESP 17; O2SAT 95
--- NOTE | 2018-03-24 15:04 | ED.RN ---
DISCHARGE INSTRUCTIONS GIVEN TO AND REVIEWED WITH PATIENT, PATIENT DENIES QUESTIONS OR CONCERNS AND VOICES UNDERSTANDING OF DISCHARGE INSTRUCTIONS. PT TO PRIVATE VEHICLE VIA WHEELCHAIR.
== END 2018-03-24 15:05 | disposition home or self-care (01) ==
PROVIDERS: Emergency Provider Emergency Medicine; Family Provider Family Medicine; PCP Family Medicine
DX: M79.672 Pain in left foot (principal); E11.9 Type 2 diabetes mellitus without complications; I10 Essential (primary) hypertension
CPT/HCPCS: 29515; 73630; 99283

== ENCOUNTER → 2018-05-16 08:46 | Outpatient (CLI) | payer MEDICAID, SELFPAY ==
--- NOTE | 2018-05-16 08:51 | RAD_ITS ---
STUDY: X-RAY - ESOPHAGUS (BARIUM SWALLOW) WITH FLUOROSCOPY REASON FOR EXAM: Female, 53 years old. Dysphasia. Vomiting. TECHNIQUE: 13 view(s) of the esophagus were obtained following swallowing of barium. FLUOROSCOPY TIME (if supplied): (0:25) minutes/seconds COMPARISON: Comparison is made with prior study dated February 22, 2016. FINDINGS: There is no demonstrated esophageal foreign body. There is no demonstrated stricture or mucosal abnormality. Again, the esophagus is mildly distended and decreased peristaltic activity. Normal gastroesophageal junction, without a demonstrated hiatal hernia. The patient ingested a 12 mm tablet of barium without any difficulty. There is atherosclerotic tortuosity of the aortic arch and descending thoracic aorta. Normal visualized pulmonary parenchyma. Normal visualized osseous structures of the thorax. RAD/Esophagus Only IMPRESSION: Stable dilatation of the esophagus without evidence of obstruction or gastroesophageal reflux. Electronically Signed: Mauro Gannon MD at 8:55 EST , Service support ,
== END ==
PROVIDERS: Family Provider Family Medicine; PCP Family Medicine; Referring Provider Family Medicine; Visit Provider Family Medicine
DX: K21.9 Gastro-esophageal reflux disease without esophagitis (principal)
CPT/HCPCS: 74220

== ENCOUNTER → 2018-05-17 17:52 | Outpatient (CLI) | payer MEDICAID, SELFPAY | PROVIDERS: Family Provider Family Medicine; PCP Family Medicine; Referring Provider Family Medicine; Visit Provider Family Medicine | DX: N39.0 Urinary tract infection, site not specified (principal) | CPT/HCPCS: 87086; 87088 ==

== ENCOUNTER 2018-05-19 09:39 | Emergency (ER) | payer MEDICAID, SELFPAY ==
[2018-05-19 09:40] VITALS: BP 180/79; PULSE 87; RESP 18; TEMP 36.6; O2SAT 99; BMI 38.9
--- NOTE | 2018-05-19 10:46 | CT_ITS ---
STUDY: CT ABDOMEN AND PELVIS WITHOUT CONTRAST REASON FOR EXAM: Female, 53 years old. Right flank pain RADIATION DOSAGE (If Supplied By Facility): CTDIvol = ( 30.45 ) mGy, DLP = ( 1551.95 ) mGycm TECHNIQUE: Transaxial images were obtained from the dome of the diaphragm to the symphysis pubis without oral contrast, and without intravenous contrast. Sagittal and coronal images were reconstructed. Individualized dose optimization techniques were used for this CT. COMPARISON: None. FINDINGS: The visualized lung bases are unremarkable. The visualized portions of the heart are within normal limits. Normal liver. There are multiple gallstones. Normal spleen. Normal pancreas. Normal bilateral adrenal glands. Normal right kidney. Normal left kidney. There is a small hiatal hernia. Normal small intestine. There are multiple colonic diverticula consistent with diverticulosis. The appendix is visualized and appears normal. Normal abdominal aorta. Normal inferior vena cava. Normal retroperitoneum. There is mild circumferential bladder wall thickening. There is absence of the uterus consistent with a prior hysterectomy. Normal abdominal wall. There are diffuse degenerative changes of the visualized lumbar spine. CT/Abdomen/Pelvis without Cont IMPRESSION: Circumferential bladder wall thickening suggesting cystitis. No evidence of obstructing stones. No evidence of hydronephrosis or hydroureter. Electronically Signed: Davon Ervin DO at 13:05 EST Tel , Service support ,
[2018-05-19] MEDS: 0.9% Normal Saline 1,000 ML 250 ML IV (11:35)
[2018-05-19] MEDS: Ketorolac 30 MG/ML Syringe IV (11:35)
[2018-05-19 11:37] VITALS: TEMP 36.4
[2018-05-19 13:11] LABS: Color, Urine Yellow (Yellow); Glucose, Dipstick Normal (Normal); Ketone-Dipstick Negative (Negative); Leukocyte Esterase-Dipstick 500 /ul (Negative); Nitrite-Dipstick Negative (Negative); Occult Blood-Urine 25 /ul (Negative); Protein-Dipstick 100 mg/dl (Negative); Urine Bilirubin Dipstick Negative (Negative); Urine Clarity Cloudy (Clear); Urine Urobilinogen Normal (Normal)
[2018-05-19 13:18] LABS: Bacteria 3+ /hpf (None Seen); Mucous, Urine RARE /hpf (<or=2+); Red Blood Cells-Urine 0-5 SEEN /hpf (0-5); Squamous Epithelial Cells - UA 5-10 SEEN /hpf (5-10); White Blood Cells 25-50 SEEN /hpf (0-5); Yeast-Urine 2+ /hpf (None Seen)
--- NOTE | 2018-05-19 14:10 | ED.DCSUM_ITS ---
- ER Visit Summary Date of Service: 05/19/18 Chief Complaint: Right flank pain History of Present Illness: The patient is a 53 F who presents with right flank pain that has been getting worse. Patient states she was recently diagnosed with a urinary tract infection. Patient states she feels like this could be also from a kidney stone. Patient saw her primary care physician who put her on Bactrim for urinary tract infection. She also stated that she had blood in her urine at that time. Patient admits to some nausea and vomiting. Patient had 2 episodes of vomiting today. Patient also admits to some loose diarrhea. Patient admits to subjective fevers and chills but did not take her temperature. Physical Examination: Vital signs are stable except for an elevated blood pressure 180/79 patient is afebrile. Patient is in no acute distress. Oral mucosa is pink and moist. Neck is supple. Trachea is midline. There is no JVD noted. Heart was regular rate and rhythm. Lungs are clear and equal bilateral. Abdomen is soft. Bowel sounds are normal. There is some right CVA tenderness. There is also some right lower abdominal tenderness. There is no rebound or guarding noted. The remaining physical exam is within normal limits. Test Results: Urinalysis does show evidence of urinary tract infection. CT scan of the abdomen pelvis does not show any ureteral calculi or perinephric stranding. Emergency Department Course and Treatment: Patient was given IV fluids and Toradol here. Patient was given a prescription for Cipro to take instead of the Bactrim. Patient was instructed to follow-up with her primary care physician in 5-7 days. Patient understood and was agreeable with the plan. All questions were answered. Disposition: Discharge home Impression: Pyelonephritis This note was generated with [employer] dictation software. It may contain incorrect words, spelling, and punctuation that were not noted in review of the chart prior to signing ED Disposition - Plan for ED Patient: Disposition: Home or Assisted Living Diagnosis: Pyelonephritis Instructions: ED Kidney Infec Female Prescriptions: Ciprofloxacin [Cipro] 500 mg PO BID #14 tab Referrals: John Castillo MD [Primary Care Provider] -
[2018-05-19 14:27] VITALS: BP 134/67; PULSE 67; RESP 16; O2SAT 97
== END 2018-05-19 14:28 | disposition home or self-care (01) ==
PROVIDERS: Emergency Provider Emergency Medicine; Family Provider Family Medicine; PCP Family Medicine
DX: N12 Tubulo-interstitial nephritis, not specified as acute or chronic (principal)
CPT/HCPCS: 74176; 81001; 96361; 96374; 99285; J7030; A4216

== ENCOUNTER 2018-06-03 18:02 | Emergency (ER) | payer MEDICAID, SELFPAY ==
[2018-06-03 18:02] VITALS: BP 213/97; PULSE 98; RESP 18; TEMP 36.3; O2SAT 97; BMI 41.7
--- NOTE | 2018-06-03 19:09 | ED.VISSUMM ---
- ER Visit Summary Date of Service: 06/03/18 Chief Complaint: Right flank abdominal pain History of Present Illness: The patient is a 53 F history of prior C. difficile, insulin pen diabetes, hypertension, anemia and recent GI treated with Cipro. She states she took the antibiotic for 10 days. Patient complaining of right flank pain. Associated with nausea and vomiting. Diarrhea loose stools today. Has had a prior hysterectomy. Still has her gallbladder. Denies any fever. Is complaining of right back pain. Physical Examination: Middle-aged female no acute distress. Vital signs are stable. She is afebrile. She does not look septic or toxic. HEENT exam unremarkable neck nontender no lymphadenopathy. Lungs clear to auscultation bilaterally. Heart regular rate and rhythm no murmur. Abdomen is soft nondistended normal bowel sounds no peritoneal signs. Mild right upper quadrant tenderness. No Mancera sign. No McBurney's point tenderness. No signs of obstruction. Positive bowel sounds and soft extremities moves all 4. Neurovascular intact. Back mild right CVA tenderness. Neurologically she is awake alert with no focal motor deficits. Test Results: CBC shows a white count of 10. Hemoglobin 9.6 which is her baseline anemia. Electrolytes potassium 5.5 normal gap. Creatinine 1.3 which is her baseline. Liver enzymes normal. Lipase slightly elevated 455. Urinalysis normal no signs of infection Emergency Department Course and Treatment: Patient with flank and abdominal pain. Receive IV fluids. Repeat exam patient is doing well at 2030. Abdomen is benign. She and I discussed all of her test results. I also reviewed a recent CT abdomen pelvis that she had done which showed multiple gallstones and that may or may not be the cause of her pain. She will follow-up with a local general surgeon for further evaluation of gallstones and gallbladder disease. Treatment Plan: [place] diet. Tylenol for pain. Follow-up Disposition: Discharge Impression: Right flank pain and abdominal pain of uncertain etiology. (May be secondary to known history of gallstones) This note was generated with [employer] dictation software. It may contain incorrect words, spelling, and punctuation that were not noted in review of the chart prior to signing ED Disposition - Plan for ED Patient: Referrals: John Castillo MD [Primary Care Provider] -
[2018-06-03 19:22] LABS: Mucous, Urine 0 SEEN /hpf (<or=2+); Red Blood Cells-Urine 0 SEEN /hpf (0-5); Squamous Epithelial Cells - UA 0 SEEN /hpf (5-10)
[2018-06-03 19:41] LABS: Color, Urine Yellow (Yellow); Glucose, Dipstick 50 mg/dl (Normal); Ketone-Dipstick Negative (Negative); Leukocyte Esterase-Dipstick 25 /ul (Negative); Nitrite-Dipstick Negative (Negative); Occult Blood-Urine 50 /ul (Negative); Protein-Dipstick 100 mg/dl (Negative); Urine Bilirubin Dipstick Negative (Negative); Urine Clarity Sl. Cloudy (Clear); Urine Urobilinogen Normal (Normal)
[2018-06-03] MEDS: 0.9% Normal Saline 1,000 ML 1000 ML IV (19:41)
[2018-06-03] MEDS: Ceftriaxone 1 GM/50 ML BAG IV (19:41)
[2018-06-03 19:46] LABS: Absolute Lymphocyte Count 1.48 X10^3/ul (0.83-4.51); Absolute Neutrophil Count 8.2 X10^3/uL (2.0-7.7); Basophil# 0.05 X10^3/uL; Basophil% 0.5 % (0-1); Eosinophils% 1.9 % (0-5); Hematocrit 32.3 % (37-47); Hemoglobin 9.6 g/dl (12.0-15.0); Lymphocyte # 1.48 X10^3/ul (4.0); Lymphocyte % 14.2 % (19-41); Mean Corp Hgb Conc 29.7 g/gl (32-36); Mean Corpuscular Hgb 27.1 pg (27.0-32.0); Mean Corpuscular Volume 91.2 fL (81-99); Mean Platelet Vol. 10.8 fl (6.2-12.0); Monocyte# 0.48 X10^3/uL; Monocyte% 4.6 % (0-10); Neutrophil # 8.19 X10^3/uL (2.7-7.7); Neutrophil % 78.6 % (47-70); Platelet Count 238 K/mm3 (150-450); RBC Distribution Width CV 14.7 % (11.6-14.6); RBC Distribution Width SD 49.4 fl (35.1-43.9); Red Blood Count 3.54 M/mm3 (4.2-5.4); White Blood Count 10.4 K/mm3 (4.4-11.0)
[2018-06-03 19:47] LABS: POSITIVE COUNT NO; POSITIVE DIFFERENTIAL NO; POSITIVE MORPHOLOGY NO
[2018-06-03 19:49] LABS: White Blood Cells 0-5 SEEN /hpf (0-5); Yeast-Urine 2+ /hpf (None Seen)
[2018-06-03 19:50] LABS: Bacteria RARE /hpf (None Seen)
[2018-06-03 20:02] LABS: AST(SGOT) 17 U/L (15-37); Alanine Aminotransfer ALT/SGPT 16 U/L (13-56); Albumin, Serum 2.8 g/dL (3.2-5.0); Alkaline Phosphatase 95 U/L (45-117); Anion Gap 5 (5-15); BUN 39 mg/dL (7-18); BUN/Creat Ratio 29.8 RATIO (10-20); Bilirubin, Direct 0.07 mg/dL (0.00-0.30); Calcium,Total 8.2 mg/dL (8.5-10.1); Chloride 120 mmol/L (98-107); Creatinine, Serum 1.31 mg/dL (0.55-1.02); EST Glomerular Filtration Rate 45 mL/min (>60); Est Glom Filt Rate - Afr Amer 55 mL/min (>60); Globulin 4.2 g/dL (2.2-4.2); Glucose 113 mg/dL (74-106); Lipase 455 U/L (73-393); Potassium 5.5 mmol/L (3.5-5.1); Sodium Level 144 mmol/L (136-145)
[2018-06-03 20:18] VITALS: BP 172/127; PULSE 100; RESP 16; O2SAT 93
--- NOTE | 2018-06-03 20:39 | ED.DEP ---
ED Disposition - Plan for ED Patient: Disposition: Home or Assisted Living Instructions: ED Abdominal Pain Unkn Cause Referrals: Reji Lui MD [STAFF PHYSICIAN] - As soon as possible Additional Instructions: Your workup today was basically unremarkable however you have had a recent CAT scan that showed multiple gallstones which may or may not be the cause of your abdominal pain. Follow-up with 1 of the local general surgeons I referred you to Dr. Roberto Lui for evaluation for gallbladder disease and your gallstones. Return if increasing pain, fever or intractable vomiting.
== END 2018-06-03 20:48 | disposition home or self-care (01) ==
PROVIDERS: Emergency Provider Emergency Medicine; Family Provider Family Medicine; PCP Family Medicine
DX: R10.9 Unspecified abdominal pain (principal); R11.2 Nausea with vomiting, unspecified; R19.7 Diarrhea, unspecified; Z90.710 Acquired absence of both cervix and uterus; E11.9 Type 2 diabetes mellitus without complications; I10 Essential (primary) hypertension; D64.9 Anemia, unspecified; Z79.4 Long term (current) use of insulin; Z86.19 Personal history of other infectious and parasitic diseases; M54.9 Dorsalgia, unspecified
CPT/HCPCS: 80048; 80076; 81001; 83690; 85025; 96365; 99285; J7030; A4216

== ENCOUNTER 2018-06-06 13:02 | Day surgery (SDC) | payer MEDICAID, SELFPAY ==
[2018-06-05 14:58] VITALS: BMI 41.7
[2018-06-06] VITALS (14 sets, daily range): BP systolic 122–183; BP diastolic 0–93; PULSE 68–76; RESP 16–20; TEMP 35.3–37; O2SAT 85–100; BMI 42.2
--- NOTE | 2018-06-06 13:12 | EKG12_ITS ---
Test Reason : PRE-OP Blood Pressure : / mmHG Vent. Rate : 067 BPM Atrial Rate : 067 BPM P-R Int : 162 ms QRS Dur : 088 ms QT Int : 442 ms P-R-T Axes : 020 -09 023 degrees QTc Int : 467 ms Normal sinus rhythm Normal ECG When compared with ECG of 06-MAR-2018 21:47, No significant change was found Confirmed by UMA HARO, SHEELA ([id number]), acquisition editor TOOTIE CAGE ([id number]) on 06/08/2018 1:58:08 PM Referred By: Reji Lui Confirmed By:SHEELA EATON MD
[2018-06-06 13:41] LABS: Absolute Neutrophil Count 12.1 X10^3/uL (2.0-7.7); Basophil# 0.02 X10^3/uL; Basophil% 0.1 % (0-1); Eosinophil# 0.01 X10^3/uL; Eosinophils% 0.1 % (0-5); Hematocrit 33.7 % (37-47); Hemoglobin 10.1 g/dl (12.0-15.0); Lymphocyte % 6.7 % (19-41); Mean Corpuscular Hgb 27.4 pg (27.0-32.0); Mean Corpuscular Volume 91.6 fL (81-99); Mean Platelet Vol. 10.9 fl (6.2-12.0); Monocyte# 0.47 X10^3/uL; Monocyte% 3.5 % (0-10); Neutrophil % 89.5 % (47-70); POSITIVE COUNT NO; POSITIVE DIFFERENTIAL NO; POSITIVE MORPHOLOGY NO; Platelet Count 229 K/mm3 (150-450); RBC Distribution Width CV 14.8 % (11.6-14.6); RBC Distribution Width SD 49.8 fl (35.1-43.9); Red Blood Count 3.68 M/mm3 (4.2-5.4); White Blood Count 13.5 K/mm3 (4.4-11.0)
[2018-06-06 13:54] LABS: Anion Gap 7 (5-15); BUN 46 mg/dL (7-18); BUN/Creat Ratio 25.1 RATIO (10-20); Calcium,Total 8.2 mg/dL (8.5-10.1); Chloride 115 mmol/L (98-107); Creatinine, Serum 1.83 mg/dL (0.55-1.02); EST Glomerular Filtration Rate 31 mL/min (>60); Est Glom Filt Rate - Afr Amer 37 mL/min (>60); Estimated Creatinine Clearance 32.36 ml/min; Glucose 146 mg/dL (74-106); Potassium 5.9 mmol/L (3.5-5.1); Sodium Level 140 mmol/L (136-145)
[2018-06-06 13:55] LABS: Partial Thromboplast Time 27.8 Seconds (24.1-36.2); Prothrombin Time (Protime)PT. 12.9 SECONDS (11.7-14.9)
[2018-06-06 14:00] LABS: Bedside Glucose 141 mg/dL (70-110)
--- NOTE | 2018-06-06 15:00 | GALL_PTH ---
PATIENT: DORIS EDWARD LOC: [facility] U#:[id number] AGE/SX: 53/F ROOM: RE06/06/[address]: Dr. Reji Lui MD : 1965 BED: DIS: 06/07/2018 SPEC #: [id number] RECD: 06/06/18 16:18 STATUS: MAXIMUS ISABELLA #: [id number] ELY: 06/06/18 15:[address]: Reji Lui DEPT: SURGICAL PATHOLOGY RECD BY: Talha Fischer ENTERED: 06/07/18 07:13 SP TYPE: [place] DR: Dr. Osmin Castillo MD Tissues: Gallbladder, NOS Procedures: Surgery Specimen Level III HEADER OPERATION: Laparoscopic cholecystectomy PRE-OP DIAGNOSIS: Cholecystitis TISSUE SUBMITTED: Gallbladder and contents MICROSCOPIC DIAGNOSIS Gallbladder, cholecystectomy: Mild chronic cholecystitis and cholelithiasis. AM:quan 06/08/18 MICROSCOPIC DESCRIPTION Slides are reviewed. GROSS DESCRIPTION Received is one container labeled with the patient's name and designated gallbladder. The specimen consists of a gallbladder measuring 8.7 x 3.5 x 3.5 cm. The external surface is smooth and glistening. Focally, it is granular, hemorrhagic and contains cautery artifact. The lumen of the gallbladder contains yellow-green mucoid bile and multiple marie calculi ranging in size from <0.1 to 0.6 cm. The mucosa is bile-stained and without any mass lesions. The gallbladder wall averages 0.1 cm in thickness and is free of mass lesions. Data Steward sections of the gallbladder and the cystic duct are submitted in one cassette. / AM:quan 06/07/18 TC:3 CPT: 04797
--- NOTE | 2018-06-06 15:03 | OP.PCM_ITS ---
Problem List (1) Calculus of gallbladder with chronic cholecystitis without obstruction Status: Chronic Report of Operation Date of Procedure: 06/06/18 Pre-Operative Diagnosis: Calculus of the gallbladder with chronic cholecystitis without obstruction Post-Operative Diagnosis: Same Surgery/Procedure Performed:: Laparoscopic cholecystectomy Anesthesiologist: Derrick Duran Specimen's removed: Gallbladder Drains: None Estimated Blood Loss (mL): < 25 cc Fluids Replaced: 500 cc lr Description of Procedure: Patient was brought into the operating room placed in the supine position. Under excellent general trach intubation the abdomen was sterilely prepped drap ed in usual fashion. Local was injected above the umbilicus curvilinear incision was made dissection was carried down to the fascia the fascia grasped with a Carlo varies needle was placed inside the abdomen the abdomen was insufflated to 15 torr a 10/12 trocar was placed without difficulty. Patient was placed in the head up and rotated to the left position. A subxiphoid #5 trocar was placed, inferior to this another 5 trocar was placed, laterally a #5 trocar was placed. All of these under direct visualization without injury to underlying structures. Fundus of the gallbladder was grasped and retracted in a cephalad direction moderate amount of adhesions were taken down with electrocautery. I dissected out the cystic artery first place hemoclips proximally distally and ligated the artery identified the cystic duct dissected it free place hemoclips proximally distally and ligated the duct deliver the gallbladder from the gallbladder bed with use of electrocautery there is no spillage of bile or stones. Placed a specimen specimen bag delivered through the umbilical port without difficulty. Reinflated the abdomen inspected the right upper quadrant good hemostasis was noted. Remove the trochars under direct visualization good hemostasis was noted. Close the fascia the umbilical port figure 8 stitch of 0 Vicryl. Skin incisions were closed with a particular stitches of 4-0 Monocryl. Steri-Strips are applied sterile dressings were applied and the patient tolerated the procedure well. - Admit VTE Documentation VTE Present on Admission: No VTE Mechan Device Prophylaxis: SCD's VTE Pharm Prophylaxis ordered?: No Reason prophylaxis not ordered:: Treatment Not Indicated
--- NOTE | 2018-06-06 15:04 | DCINST_ITS ---
Discharge Diet: Light diet - advance as tolerated Discharge Activity: May Not Drive - for 2-3 days or while taking narcotic pain medications., - - Do not drive, work heavy equipment or sign legal documents for 24 hours. May shower in (days): 1 - with the bandage in place. Additional Activity Instructions:: Pain medication may cause nausea. You should typically eat light foods as you take your pain medications. Pain medication may also cause constipation. If this is a problem for you, please discuss with your doctor. Call your doctor if your incision/area has: Continuous Slow Oozing, Sudden Increased Bleeding, Increased Pain/ Swelling, Increased Redness, Foul Smelling Discharge Call your doctor if you observe: Fever of 101 or Higher Suture Line Care: Avoid Pulling/Pushing, Avoid Pinching/Bending Additional Dressing/Incision Instructions:: Leave operative bandaids on for 2 days. When you remove dressing, leave Steri-Strips on until your follow-up appointment, or until the Steri-Strips fall off on their own. Allergies/Adverse Reactions: Allergies Latex, Natural Rubber Allergy (Verified 06/05/18 15:51) Rash Penicillins Allergy (Verified 06/05/18 15:51) Swelling lactose Adverse Reaction (Verified 06/05/18 15:51) Diarrhea Medications to take at Discharge albuterol sulfate HFA 90 mcg/actuation aerosol inhaler 2 puff INHALATION Q4H PRN g 04/11/17 Alogliptin Benzoate [Alogliptin] 25 mg PO DAILY 05/28/17 Basaglar Kwikpen U-100 46 unit SQ QHS PRN 05/28/17 Montelukast [Singulair] 10 mg PO QHS 05/28/17 Omeprazole 40 mg PO DAILY 05/28/17 furosemide 20 mg tablet 40 mg PO BID tab 09/21/17 glipizide 5 mg tablet 10 mg PO DAILY tab 09/21/17 lisinopril 40 mg tablet 40 mg PO QDAY 09/21/17 Ibuprofen 600 mg PO DAILY PRN 02/21/18 Lactobacillus Acidophilus [Acidophilus] 1 ea PO DAILY 02/21/18 Loperamide [Imodium] 2 mg PO BID PRN 03/07/18 Metoprolol Tartrate [Lopressor (beta nubia)] 50 mg PO BID #60 tab 03/08/18 amlodipine 5 mg tablet 5 mg PO DAILY 06/05/18 fexofenadine 180 mg tablet 180 mg PO DAILY 06/05/18 fluticasone 100 mcg-vilanterol 25 mcg/dose powder for inhalation 1 inh INHALATION Q24H #60 ea 06/05/18 Primary Care Physician: John Castillo MD [Primary Care Provider] - Test Results: Test results from this visit will be discussed in further detail at your follow- up appointment, if applicable. Please Follow Up With: Reji Lui MD - Please call [phone] to schedule an appointment. When: 7 days after your surgery.
[2018-06-06] MEDS: Bupivacaine Mpf 0.5% 30 ML VIAL (15:44)
[2018-06-06 16:25] LABS: Bedside Glucose 142 mg/dL (70-110)
--- NOTE | 2018-06-06 19:30 | PCM.PN.HOSP ---
Subjective: Follow-up hyperkalemia Patient underwent a laparoscopic cholecystectomy today by Dr. Lui. She underwent a lap scopic cholecystectomy today by Dr. Lui that was unremarkable. The hospitalist service was contacted for medical management while patient was observed overnight. Patient denies any abdominal pain states that she is hungry, however. Did complain of lower extremity numbness after the procedure but that is actually gotten better since surgery. Vitals/I&O's: Vital Signs Temp Pulse Resp BP Pulse Ox 36.9 C 68 18 162/87 H 98 06/06/18 18:16 06/06/18 18:16 06/06/18 18:16 06/06/18 18:16 06/06/18 18:41 Oxygen Flow Rate (L/min) 2 Oxygen Delivery Method Nasal Cannula Weight: 116.8 kg Body Mass Index (BMI) 42.2 Finger Stick Blood Glucose 142 Intake and Output for Last 24 Hours 06/04/18 06/05/18 06/06/18 23:59 23:59 23:59 Intake Total 2600 / 2600 Balance 2600 / 2600 General: Alert, Cooperative, No apparent distress HEENT: Atraumatic, Normocephalic Neck: No Nodes, Thyroid Normal Size and Texture Lungs: Clear to auscultation, Normal air movement, No rhonchi, No wheeze Cardiovascular: Regular rate, Regular Rhythm, Normal S1, Normal S2, No murmurs Abdomen: Soft, Non Tender, Hypoactive Bowel Sounds, Obese Extremities: No edema, No Calf Tenderness Skin: No rashes, No breakdown Psych/Mental Status: Normal Affect, Appropriate Laboratory Results 06/06/18 13:28: POC Glucose 141 H 06/06/18 13:30: WBC 13.5 H, RBC 3.68 L, Hgb 10.1 L, Hct 33.7 L, MCV 91.6, MCH 27.4, MCHC 30.0 L, RDW 14.8 H, RDW Differential 49.8 H, Plt Count 229, MPV 10.9, Immature Gran % (Auto) 0.100, Neut % (Auto) 89.5 H, Lymph % (Auto) 6.7 L, [place] % (Auto) 3.5, Eos % (Auto) 0.1, Baso % (Auto) 0.1, Absolute Neuts (auto) 12.1 H, Absolute Lymphs (auto) 0.90, Total Counted Not Reportable 06/06/18 13:30: PT 12.9, INR 1.0, APTT 27.8 06/06/18 13:30: Sodium 140, Potassium 5.9 H, Chloride 115 H, Carbon Dioxide 18.0 L, Anion Gap 7, BUN 46 H, Creatinine 1.83 H, Estim Creat Clear Calc 32.36, Est GFR (MDRD) Af Amer 37 L, Est GFR (MDRD) Non-Af 31 L, BUN/Creatinine Ratio 25.1 H, Glucose 146 H, Calcium 8.2 L 06/06/18 13:30: Hemoglobin A1c 7.0 H 06/06/18 16:20: POC Glucose 142 H Current Medications Albuterol Sulfate (Ventolin Aerosols) 2.5 mg INHALATION Q4H PRN PRN Reason: SHORTNESS OF BREATH/WHEEZING Albuterol Sulfate (Ventolin Aerosols) 2.5 mg INHALATION Q6HWA.RT [facility] Amlodipine Besylate (Norvasc) 5 mg PO DAILY [facility] Budesonide (Pulmicort Aerosol) 0.5 mg INHALATION Q12H.RT [facility] Furosemide (Lasix) 40 mg PO BIDLX [facility] Glipizide (Glucotrol) 10 mg PO DAILYCM [facility] Lactated Ringer's () 1,000 mls @ 50 mls/hr IV .Q20H [facility] Last Admin: 06/06/18 19:06 Dose: Not Given Ibuprofen (Motrin) 600 mg PO DAILY PRN PRN Reason: PAIN Insulin Glargine (Lantus (Bkc)) 46 units SC QHS PRN PRN Reason: BLOOD GLUCOSE >160 Lactobacillus Acidophilus (Acidophilus) 1 tablet PO DAILY [facility] Linagliptin (Tradjenta) 5 mg PO DAILY [facility] Lisinopril (Zestril) 40 mg PO DAILY [facility] Loperamide HCl (Imodium) 2 mg PO BID PRN PRN Reason: Diarrhea Loratadine (Claritin) 10 mg PO DAILY [facility] Metoprolol Tartrate (Lopressor (Beta Raymon)) 50 mg PO BID [facility] Montelukast Sodium (Singulair) 10 mg PO QHS [facility] Ondansetron HCl (Zofran) 4 mg IV Q8H PRN PRN PRN Reason: NAUSEA Oxycodone HCl (Oxyir) 5 - 10 mg PO Q4H PRN PRN PRN Reason: SEVERE PAIN (-01/10) Pantoprazole Sodium (Protonix) 40 mg PO DAILY [facility] Medical Necessity - Tobacco Use Smoking Status: Never smoker Assessment/Plan All Active Problems (Last Reviewed 06/05/18 @ 16:04 by Reji Lui MD) Hypertensive urgency (Acute) Dehydration (Acute) Headache (Acute) Amputated toe (Resolved) H/O: hysterectomy (Resolved) Diarrhea in adult patient (Resolved ~02/2016) Diabetic foot ulcer (Resolved) Delayed wound healing (Resolved) Edema of left lower extremity (Resolved) 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 Hyperkalemia: Patient had high potassiums before on June 03 and now is 5.9. No evidence of hemolysis. Patient currently receiving IV fluids. Previous review of her potassium levels have not shown any hyperkalemia. Would monitor for now but if still remains high may consider discontinuing lisinopril. 2. Leukocytosis: No fever. Would monitor may be more reactive than anything. 3. Hypertension: Has been elevated since she has been here. Would monitor for now and continue with metoprolol, Lasix, lisinopril and amlodipine. 4. Diabetes mellitus type 2: On glipizide, Lantus, Tradjenta. Would monitor for now but check blood sugar with meals. 5. Status post lap scopic cholecystectomy: Management per surgery. 6. DVT prophylaxis with SCDs. Thank you for the consult. The hospital service will continue to follow along during the course of this patient's hospitalization. Code Visit Inpatient E&M: 67172 Subs Hosp L2
--- NOTE | 2018-06-06 19:38 | PN_ITS ---
Subjective: Follow-up hyperkalemia Patient underwent a laparoscopic cholecystectomy today by Dr. Lui. She underwent a lap scopic cholecystectomy today by Dr. Lui that was unremarkable. The hospitalist service was contacted for medical management while patient was observed overnight. Patient denies any abdominal pain states that she is hungry, however. Did complain of lower extremity numbness after the procedure but that is actually gotten better since surgery. Vitals/I&O's: Vital Signs Temp Pulse Resp BP Pulse Ox 36.9 C 68 18 162/87 H 98 06/06/18 18:16 06/06/18 18:16 06/06/18 18:16 06/06/18 18:16 06/06/18 18:41 Oxygen Flow Rate (L/min) 2 Oxygen Delivery Method Nasal Cannula Weight: 116.8 kg Body Mass Index (BMI) 42.2 Finger Stick Blood Glucose 142 Intake and Output for Last 24 Hours 06/04/18 06/05/18 06/06/18 23:59 23:59 23:59 Intake Total 2600 / 2600 Balance 2600 / 2600 General: Alert, Cooperative, No apparent distress HEENT: Atraumatic, Normocephalic Neck: No Nodes, Thyroid Normal Size and Texture Lungs: Clear to auscultation, Normal air movement, No rhonchi, No wheeze Cardiovascular: Regular rate, Regular Rhythm, Normal S1, Normal S2, No murmurs Abdomen: Soft, Non Tender, Hypoactive Bowel Sounds, Obese Extremities: No edema, No Calf Tenderness Skin: No rashes, No breakdown Psych/Mental Status: Normal Affect, Appropriate Laboratory Results 06/06/18 13:28: POC Glucose 141 H 06/06/18 13:30: WBC 13.5 H, RBC 3.68 L, Hgb 10.1 L, Hct 33.7 L, MCV 91.6, MCH 27.4, MCHC 30.0 L, RDW 14.8 H, RDW Differential 49.8 H, Plt Count 229, MPV 10.9, Immature Gran % (Auto) 0.100, Neut % (Auto) 89.5 H, Lymph % (Auto) 6.7 L, [place] % (Auto) 3.5, Eos % (Auto) 0.1, Baso % (Auto) 0.1, Absolute Neuts (auto) 12.1 H, Absolute Lymphs (auto) 0.90, Total Counted Not Reportable 06/06/18 13:30: PT 12.9, INR 1.0, APTT 27.8 06/06/18 13:30: Sodium 140, Potassium 5.9 H, Chloride 115 H, Carbon Dioxide 18.0 L, Anion Gap 7, BUN 46 H, Creatinine 1.83 H, Estim Creat Clear Calc 32.36, Est GFR (MDRD) Af Amer 37 L, Est GFR (MDRD) Non-Af 31 L, BUN/Creatinine Ratio 25.1 H , Glucose 146 H, Calcium 8.2 L 06/06/18 13:30: Hemoglobin A1c 7.0 H 06/06/18 16:20: POC Glucose 142 H Current Medications Albuterol Sulfate (Ventolin Aerosols) 2.5 mg INHALATION Q4H PRN PRN Reason: SHORTNESS OF BREATH/WHEEZING Albuterol Sulfate (Ventolin Aerosols) 2.5 mg INHALATION Q6HWA.RT [facility] Amlodipine Besylate (Norvasc) 5 mg PO DAILY [facility] Budesonide (Pulmicort Aerosol) 0.5 mg INHALATION Q12H.RT [facility] Furosemide (Lasix) 40 mg PO BIDLX [facility] Glipizide (Glucotrol) 10 mg PO DAILYCM [facility] Lactated Ringer's () 1,000 mls @ 50 mls/hr IV .Q20H [facility] Last Admin: 06/06/18 19:06 Dose: Not Given Ibuprofen (Motrin) 600 mg PO DAILY PRN PRN Reason: PAIN Insulin Glargine (Lantus (Bkc)) 46 units SC QHS PRN PRN Reason: BLOOD GLUCOSE >160 Lactobacillus Acidophilus (Acidophilus) 1 tablet PO DAILY [facility] Linagliptin (Tradjenta) 5 mg PO DAILY [facility] Lisinopril (Zestril) 40 mg PO DAILY [facility] Loperamide HCl (Imodium) 2 mg PO BID PRN PRN Reason: Diarrhea Loratadine (Claritin) 10 mg PO DAILY [facility] Metoprolol Tartrate (Lopressor (Beta Raymon)) 50 mg PO BID [facility] Montelukast Sodium (Singulair) 10 mg PO QHS [facility] Ondansetron HCl (Zofran) 4 mg IV Q8H PRN PRN PRN Reason: NAUSEA Oxycodone HCl (Oxyir) 5 - 10 mg PO Q4H PRN PRN PRN Reason: SEVERE PAIN (-01/10) Pantoprazole Sodium (Protonix) 40 mg PO DAILY [facility] Medical Necessity - Tobacco Use Smoking Status: Never smoker Assessment/Plan All Active Problems (Last Reviewed 06/05/18 @ 16:04 by Reji Lui MD) Hypertensive urgency (Acute) Dehydration (Acute) Headache (Acute) Amputated toe (Resolved) H/O: hysterectomy (Resolved) Diarrhea in adult patient (Resolved ~02/2016) Diabetic foot ulcer (Resolved) Delayed wound healing (Resolved) Edema of left lower extremity (Resolved) 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 Hyperkalemia: Patient had high potassiums before on June 03 and now is 5.9. No evidence of hemolysis. Patient currently receiving IV fluids. Previous review of her potassium levels have not shown any hyperkalemia. Would monitor for now but if still remains high may consider discontinuing lisinopril. 2. Leukocytosis: No fever. Would monitor may be more reactive than anything. 3. Hypertension: Has been elevated since she has been here. Would monitor for now and continue with metoprolol, Lasix, lisinopril and amlodipine. 4. Diabetes mellitus type 2: On glipizide, Lantus, Tradjenta. Would monitor for now but check blood sugar with meals. 5. Status post lap scopic cholecystectomy: Management per surgery. 6. DVT prophylaxis with SCDs. Thank you for the consult. The hospital service will continue to follow along during the course of this patient's hospitalization. Code Visit Inpatient E&M: 18502 Subs Hosp L2
[2018-06-06] MEDS: Albuterol 2.5 MG/3 ML VIAL.NEB. INHALATION (19:44)
[2018-06-06] MEDS: Budesonide Respules 0.5 MG/2 ML AMPUL.NEB. INHALATION (19:44)
[2018-06-06] MEDS: Metoprolol Tartrate 50 MG Tablet PO (20:04)
[2018-06-06] MEDS: Montelukast 10 MG Tablet PO (20:04)
[2018-06-07 02:31] VITALS: BP 136/73; PULSE 73; RESP 18; TEMP 36.7; O2SAT 100
[2018-06-07 07:10] VITALS: O2SAT 97
[2018-06-07 07:15] VITALS: O2SAT 96
[2018-06-07 07:39] VITALS: PULSE 75
[2018-06-07] MEDS: glipiZIDE 5 MG Tablet 10 MG PO (07:39)
[2018-06-07] MEDS: Pantoprazole Sodium 40 MG Tablet PO (07:39)
[2018-06-07] MEDS: Metoprolol Tartrate 50 MG Tablet PO (07:39)
[2018-06-07] MEDS: Lisinopril 40 MG Tablet PO (07:39)
[2018-06-07] MEDS: Furosemide 40 MG Tablet PO (07:40)
[2018-06-07] MEDS: Loratadine 10 MG Tablet PO (07:40)
[2018-06-07] MEDS: amLODIPine 5 MG Tablet PO (07:40)
[2018-06-07 07:41] LABS: Bedside Glucose 71 mg/dL (70-110)
[2018-06-07] MEDS: LINAGLIPTIN 5 MG TABLET PO (07:41)
[2018-06-07 07:42] VITALS: BP 150/72; PULSE 75; RESP 16; TEMP 36.7; O2SAT 96
[2018-06-07 07:47] VITALS: O2SAT 90
[2018-06-07 08:37] LABS: Anion Gap 6 (5-15); BUN 46 mg/dL (7-18); BUN/Creat Ratio 25.4 RATIO (10-20); Calcium,Total 7.8 mg/dL (8.5-10.1); Chloride 114 mmol/L (98-107); Creatinine, Serum 1.81 mg/dL (0.55-1.02); EST Glomerular Filtration Rate 31 mL/min (>60); Est Glom Filt Rate - Afr Amer 38 mL/min (>60); Estimated Creatinine Clearance 32.72 ml/min; Glucose 91 mg/dL (74-106); Potassium 5.5 mmol/L (3.5-5.1); Sodium Level 138 mmol/L (136-145)
--- NOTE | 2018-06-07 09:58 | PCM.PN.SRG ---
Subjective: Patient evaluated resting comfortably in bed. She notes minimal amount of abdominal discomfort. She denies nausea, vomiting. She is hungry. She ordered oatmeal for breakfast. - Physical Exam General: Alert, Oriented x3, Cooperative Abdomen: Soft, Non Tender, Hypoactive Bowel Sounds, Obese, - - Incisions c/d/i. No erythema or infection noted Vital Signs Temp Pulse Resp BP Pulse Ox 98.0 F 75 16 150/72 H 90 06/07/18 07:42 06/07/18 07:42 06/07/18 07:42 06/07/18 07:42 06/07/18 07:47 Oxygen Flow Rate (L/min) 2 Oxygen Delivery Method Room Air Weight: 257 lb 7.999 oz Body Mass Index (BMI) 42.2 Finger Stick Blood Glucose 142 Intake and Output for Last 24 Hours 06/05/18 06/06/18 06/07/18 23:59 23:59 23:59 Intake Total 2600 / 2600 594 / 594 Output Total 100 / 100 Balance 2600 / 2600 494 / 494 Laboratory Tests Past 24 Hrs 06/06/18 06/06/18 06/06/18 13:30 13:30 13:30 WBC 13.5 H RBC 3.68 L Hgb 10.1 L Hct 33.7 L MCV 91.6 MCH 27.4 MCHC 30.0 L RDW 14.8 H RDW Differential 49.8 H Plt Count 229 MPV 10.9 Immature Gran % (Auto) 0.100 Neut % (Auto) 89.5 H Lymph % (Auto) 6.7 L [place] % (Auto) 3.5 Eos % (Auto) 0.1 Baso % (Auto) 0.1 Absolute Neuts (auto) 12.1 H Absolute Lymphs (auto) 0.90 Total Counted Not Reportable PT 12.9 INR 1.0 APTT 27.8 Sodium 140 Potassium 5.9 H Chloride 115 H Carbon Dioxide 18.0 L Anion Gap 7 BUN 46 H Creatinine 1.83 H Estim Creat Clear Calc 32.36 Est GFR (MDRD) Af Amer 37 L Est GFR (MDRD) Non-Af 31 L BUN/Creatinine Ratio 25.1 H Glucose 146 H Hemoglobin A1c Calcium 8.2 L 06/06/18 06/07/18 13:30 08:10 WBC RBC Hgb Hct MCV MCH MCHC RDW RDW Differential Plt Count MPV Immature Gran % (Auto) Neut % (Auto) Lymph % (Auto) [place] % (Auto) Eos % (Auto) Baso % (Auto) Absolute Neuts (auto) Absolute Lymphs (auto) Total Counted PT INR APTT Sodium 138 Potassium 5.5 H Chloride 114 H Carbon Dioxide 18.0 L Anion Gap 6 BUN 46 H Creatinine 1.81 H Estim Creat Clear Calc 32.72 Est GFR (MDRD) Af Amer 38 L Est GFR (MDRD) Non-Af 31 L BUN/Creatinine Ratio 25.4 H Glucose 91 Hemoglobin A1c 7.0 H Calcium 7.8 L POC Glucose 06/07/18 06/06/18 06/06/18 07:35 16:20 13:28 POC Glucose 71 142 H 141 H Medical Necessity - Tobacco Use Smoking Status: Never smoker Assessment/Plan All Active Problems (Last Reviewed 06/05/18 @ 16:04 by Reji Lui MD) Hypertensive urgency (Acute) Dehydration (Acute) Headache (Acute) Amputated toe (Resolved) H/O: hysterectomy (Resolved) Diarrhea in adult patient (Resolved ~02/2016) Diabetic foot ulcer (Resolved) Delayed wound healing (Resolved) Edema of left lower extremity (Resolved) 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 Lui. S/p laparoscopic cholecystectomy Ready for discharge Code Visit Inpatient E&M: 78549 Subs Hosp L1 - Post-op
--- NOTE | 2018-06-07 10:09 | PCM.PN.HOSP ---
Subjective: Doing well after surgery, no shortness of breath or chest pain. She has slight right upper quadrant abdominal pain. Vitals/I&O's: Vital Signs Temp Pulse Resp BP Pulse Ox 98.0 F 75 16 150/72 H 90 06/07/18 07:42 06/07/18 07:42 06/07/18 07:42 06/07/18 07:42 06/07/18 07:47 Oxygen Flow Rate (L/min) 2 Oxygen Delivery Method Room Air Weight: 257 lb 7.999 oz Body Mass Index (BMI) 42.2 Finger Stick Blood Glucose 142 Intake and Output for Last 24 Hours 06/05/18 06/06/18 06/07/18 23:59 23:59 23:59 Intake Total 2600 / 2600 594 / 594 Output Total 100 / 100 Balance 2600 / 2600 494 / 494 General: Alert, Oriented x3, Cooperative, No apparent distress HEENT: Atraumatic, PERRLA, EOMI, Normocephalic Oral: Moist Mucosa Neck: Supple, No JVD, Trachea Midline Lungs: Clear to auscultation, Normal air movement, No rhonchi, No wheeze, No rales Cardiovascular: Regular rate, Regular Rhythm, Normal S1, Normal S2, No murmurs Abdomen: Soft, Non-Distended, No Hepato-splenomegaly, Tender - Mildly right upper quadrant Extremities: No edema, Capillary Refill Less than 3 Seconds Skin: Incision - Dressings are clean dry and intact Neurological: Neuro grossly intact, Sensory exam intact to light touch and pain Psych/Mental Status: Normal Affect, Appropriate Laboratory Results 06/06/18 13:28: POC Glucose 141 H 06/06/18 13:30: WBC 13.5 H, RBC 3.68 L, Hgb 10.1 L, Hct 33.7 L, MCV 91.6, MCH 27.4, MCHC 30.0 L, RDW 14.8 H, RDW Differential 49.8 H, Plt Count 229, MPV 10.9, Immature Gran % (Auto) 0.100, Neut % (Auto) 89.5 H, Lymph % (Auto) 6.7 L, [place] % (Auto) 3.5, Eos % (Auto) 0.1, Baso % (Auto) 0.1, Absolute Neuts (auto) 12.1 H, Absolute Lymphs (auto) 0.90, Total Counted Not Reportable 06/06/18 13:30: PT 12.9, INR 1.0, APTT 27.8 06/06/18 13:30: Sodium 140, Potassium 5.9 H, Chloride 115 H, Carbon Dioxide 18.0 L, Anion Gap 7, BUN 46 H, Creatinine 1.83 H, Estim Creat Clear Calc 32.36, Est GFR (MDRD) Af Amer 37 L, Est GFR (MDRD) Non-Af 31 L, BUN/Creatinine Ratio 25.1 H, Glucose 146 H, Calcium 8.2 L 06/06/18 13:30: Hemoglobin A1c 7.0 H 06/06/18 16:20: POC Glucose 142 H 06/07/18 07:35: POC Glucose 71 06/07/18 08:10: Sodium 138, Potassium 5.5 H, Chloride 114 H, Carbon Dioxide 18.0 L, Anion Gap 6, BUN 46 H, Creatinine 1.81 H, Estim Creat Clear Calc 32.72, Est GFR (MDRD) Af Amer 38 L, Est GFR (MDRD) Non-Af 31 L, BUN/Creatinine Ratio 25.4 H, Glucose 91, Calcium 7.8 L Current Medications Albuterol Sulfate (Ventolin Aerosols) 2.5 mg INHALATION Q4H PRN PRN Reason: SHORTNESS OF BREATH/WHEEZING Albuterol Sulfate (Ventolin Aerosols) 2.5 mg INHALATION Q6HWA.RT [facility] Last Admin: 06/07/18 07:10 Dose: Not Given Amlodipine Besylate (Norvasc) 5 mg PO DAILY [facility] Last Admin: 06/07/18 07:40 Dose: 5 mg Budesonide (Pulmicort Aerosol) 0.5 mg INHALATION Q12H.RT [facility] Last Admin: 06/07/18 07:10 Dose: Not Given Furosemide (Lasix) 40 mg PO BIDLX [facility] Last Admin: 06/07/18 07:40 Dose: 40 mg Glipizide (Glucotrol) 10 mg PO DAILYCM [facility] Last Admin: 06/07/18 07:39 Dose: 10 mg Lactated Ringer's () 1,000 mls @ 50 mls/hr IV .Q20H [facility] Last Admin: 06/06/18 19:06 Dose: Not Given Ibuprofen (Motrin) 600 mg PO DAILY PRN PRN Reason: PAIN Insulin Glargine (Lantus (Bkc)) 46 units SC QHS PRN PRN Reason: BLOOD GLUCOSE >160 Lactobacillus Acidophilus (Acidophilus) 1 tablet PO DAILY [facility] Last Admin: 06/07/18 07:40 Dose: 1 tablet Linagliptin (Tradjenta) 5 mg PO DAILY [facility] Last Admin: 06/07/18 07:41 Dose: 5 mg Lisinopril (Zestril) 40 mg PO DAILY [facility] Last Admin: 06/07/18 07:39 Dose: 40 mg Loperamide HCl (Imodium) 2 mg PO BID PRN PRN Reason: Diarrhea Loratadine (Claritin) 10 mg PO DAILY [facility] Last Admin: 06/07/18 07:40 Dose: 10 mg Metoprolol Tartrate (Lopressor (Beta Raymon)) 50 mg PO BID [facility] Last Admin: 06/07/18 07:39 Dose: 50 mg Montelukast Sodium (Singulair) 10 mg PO QHS [facility] Last Admin: 06/06/18 20:04 Dose: 10 mg Ondansetron HCl (Zofran) 4 mg IV Q8H PRN PRN PRN Reason: NAUSEA Oxycodone HCl (Oxyir) 5 - 10 mg PO Q4H PRN PRN PRN Reason: SEVERE PAIN (6-10/10) Pantoprazole Sodium (Protonix) 40 mg PO DAILY [facility] Last Admin: 06/07/18 07:39 Dose: 40 mg Sodium Chloride () 5 - 15 ml IV UD PRN PRN Reason: SALINE FLUSH Medical Necessity - Tobacco Use Smoking Status: Never smoker Assessment/Plan All Active Problems (Last Reviewed 06/05/18 @ 16:04 by Reji Lui MD) Hypertensive urgency (Acute) Dehydration (Acute) Headache (Acute) Amputated toe (Resolved) H/O: hysterectomy (Resolved) Diarrhea in adult patient (Resolved ~02/2016) Diabetic foot ulcer (Resolved) Delayed wound healing (Resolved) Edema of left lower extremity (Resolved) 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 Cholecystitis status post lap [place] postop day 1 -Doing well postoperatively continue with pain control per primary -Tolerating p.o. -She is ok for discharge I did recommend that she hold her Lasix and her lisinopril when she goes home given her acute kidney injury and her hyperkalemia which are both improving -IV fluids 2. DM 2 -Blood sugars are stable -A1c is 7 -Continue with her home glipizide, alogliptin, basaglar 3. HTN/hyperkalemia/acute kidney injury -Blood pressure systolics have been in the 150s -Would recommend holding lisinopril and Lasix for a day or so on discharge to allow correction of her potassium -Current creatinine is 1.81, her baseline creatinine seems to be around 1.3 4. GERD -Stable -Continue with PPI DVT: SCDs Code Visit Inpatient E&M: 68555 Subs Hosp L2
--- NOTE | 2018-06-07 10:32 | PN_ITS ---
Subjective: Doing well after surgery, no shortness of breath or chest pain. She has slight right upper quadrant abdominal pain. Vitals/I&O's: Vital Signs Temp Pulse Resp BP Pulse Ox 98.0 F 75 16 150/72 H 90 06/07/18 07:42 06/07/18 07:42 06/07/18 07:42 06/07/18 07:42 06/07/18 07:47 Oxygen Flow Rate (L/min) 2 Oxygen Delivery Method Room Air Weight: 257 lb 7.999 oz Body Mass Index (BMI) 42.2 Finger Stick Blood Glucose 142 Intake and Output for Last 24 Hours 06/05/18 06/06/18 06/07/18 23:59 23:59 23:59 Intake Total 2600 / 2600 594 / 594 Output Total 100 / 100 Balance 2600 / 2600 494 / 494 General: Alert, Oriented x3, Cooperative, No apparent distress HEENT: Atraumatic, PERRLA, EOMI, Normocephalic Oral: Moist Mucosa Neck: Supple, No JVD, Trachea Midline Lungs: Clear to auscultation, Normal air movement, No rhonchi, No wheeze, No rales Cardiovascular: Regular rate, Regular Rhythm, Normal S1, Normal S2, No murmurs Abdomen: Soft, Non-Distended, No Hepato-splenomegaly, Tender - Mildly right upper quadrant Extremities: No edema, Capillary Refill Less than 3 Seconds Skin: Incision - Dressings are clean dry and intact Neurological: Neuro grossly intact, Sensory exam intact to light touch and pain Psych/Mental Status: Normal Affect, Appropriate Laboratory Results 06/06/18 13:28: POC Glucose 141 H 06/06/18 13:30: WBC 13.5 H, RBC 3.68 L, Hgb 10.1 L, Hct 33.7 L, MCV 91.6, MCH 27.4, MCHC 30.0 L, RDW 14.8 H, RDW Differential 49.8 H, Plt Count 229, MPV 10.9, Immature Gran % (Auto) 0.100, Neut % (Auto) 89.5 H, Lymph % (Auto) 6.7 L, [place] % (Auto) 3.5, Eos % (Auto) 0.1, Baso % (Auto) 0.1, Absolute Neuts (auto) 12.1 H, Absolute Lymphs (auto) 0.90, Total Counted Not Reportable 06/06/18 13:30: PT 12.9, INR 1.0, APTT 27.8 06/06/18 13:30: Sodium 140, Potassium 5.9 H, Chloride 115 H, Carbon Dioxide 18.0 L, Anion Gap 7, BUN 46 H, Creatinine 1.83 H, Estim Creat Clear Calc 32.36, Est GFR (MDRD) Af Amer 37 L, Est GFR (MDRD) Non-Af 31 L, BUN/Creatinine Ratio 25.1 H , Glucose 146 H, Calcium 8.2 L 06/06/18 13:30: Hemoglobin A1c 7.0 H 06/06/18 16:20: POC Glucose 142 H 06/07/18 07:35: POC Glucose 71 06/07/18 08:10: Sodium 138, Potassium 5.5 H, Chloride 114 H, Carbon Dioxide 18.0 L, Anion Gap 6, BUN 46 H, Creatinine 1.81 H, Estim Creat Clear Calc 32.72, Est GFR (MDRD) Af Amer 38 L, Est GFR (MDRD) Non-Af 31 L, BUN/Creatinine Ratio 25.4 H , Glucose 91, Calcium 7.8 L Current Medications Albuterol Sulfate (Ventolin Aerosols) 2.5 mg INHALATION Q4H PRN PRN Reason: SHORTNESS OF BREATH/WHEEZING Albuterol Sulfate (Ventolin Aerosols) 2.5 mg INHALATION Q6HWA.RT [facility] Last Admin: 06/07/18 07:10 Dose: Not Given Amlodipine Besylate (Norvasc) 5 mg PO DAILY [facility] Last Admin: 06/07/18 07:40 Dose: 5 mg Budesonide (Pulmicort Aerosol) 0.5 mg INHALATION Q12H.RT [facility] Last Admin: 06/07/18 07:10 Dose: Not Given Furosemide (Lasix) 40 mg PO BIDLX [facility] Last Admin: 06/07/18 07:40 Dose: 40 mg Glipizide (Glucotrol) 10 mg PO DAILYCM [facility] Last Admin: 06/07/18 07:39 Dose: 10 mg Lactated Ringer's () 1,000 mls @ 50 mls/hr IV .Q20H [facility] Last Admin: 06/06/18 19:06 Dose: Not Given Ibuprofen (Motrin) 600 mg PO DAILY PRN PRN Reason: PAIN Insulin Glargine (Lantus (Bkc)) 46 units SC QHS PRN PRN Reason: BLOOD GLUCOSE >160 Lactobacillus Acidophilus (Acidophilus) 1 tablet PO DAILY [facility] Last Admin: 06/07/18 07:40 Dose: 1 tablet Linagliptin (Tradjenta) 5 mg PO DAILY [facility] Last Admin: 06/07/18 07:41 Dose: 5 mg Lisinopril (Zestril) 40 mg PO DAILY [facility] Last Admin: 06/07/18 07:39 Dose: 40 mg Loperamide HCl (Imodium) 2 mg PO BID PRN PRN Reason: Diarrhea Loratadine (Claritin) 10 mg PO DAILY [facility] Last Admin: 06/07/18 07:40 Dose: 10 mg Metoprolol Tartrate (Lopressor (Beta Raymon)) 50 mg PO BID [facility] Last Admin: 06/07/18 07:39 Dose: 50 mg Montelukast Sodium (Singulair) 10 mg PO QHS [facility] Last Admin: 06/06/18 20:04 Dose: 10 mg Ondansetron HCl (Zofran) 4 mg IV Q8H PRN PRN PRN Reason: NAUSEA Oxycodone HCl (Oxyir) 5 - 10 mg PO Q4H PRN PRN PRN Reason: SEVERE PAIN (6-10/10) Pantoprazole Sodium (Protonix) 40 mg PO DAILY [facility] Last Admin: 06/07/18 07:39 Dose: 40 mg Sodium Chloride () 5 - 15 ml IV UD PRN PRN Reason: SALINE FLUSH Medical Necessity - Tobacco Use Smoking Status: Never smoker Assessment/Plan All Active Problems (Last Reviewed 06/05/18 @ 16:04 by Reji Lui MD) Hypertensive urgency (Acute) Dehydration (Acute) Headache (Acute) Amputated toe (Resolved) H/O: hysterectomy (Resolved) Diarrhea in adult patient (Resolved ~02/2016) Diabetic foot ulcer (Resolved) Delayed wound healing (Resolved) Edema of left lower extremity (Resolved) 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 Cholecystitis status post lap malena postop day 1 -Doing well postoperatively continue with pain control per primary -Tolerating p.o. -She is ok for discharge I did recommend that she hold her Lasix and her lisinopril when she goes home given her acute kidney injury and her hyperkalemia which are both improving -IV fluids 2. DM 2 -Blood sugars are stable -A1c is 7 -Continue with her home glipizide, alogliptin, basaglar 3. HTN/hyperkalemia/acute kidney injury -Blood pressure systolics have been in the 150s -Would recommend holding lisinopril and Lasix for a day or so on discharge to allow correction of her potassium -Current creatinine is 1.81, her baseline creatinine seems to be around 1.3 4. GERD -Stable -Continue with PPI DVT: SCDs Code Visit Inpatient E&M: 41489 Subs Hosp L2
--- NOTE | 2018-06-07 11:20 | DCINST_ITS ---
Discharge Diet: Light diet - advance as tolerated Discharge Activity: May Not Drive - for 2-3 days or while taking narcotic pain medications., - - Do not drive, work heavy equipment or sign legal documents for 24 hours. May shower in (days): 1 - with the bandage in place. Call your doctor if your incision/area has: Continuous Slow Oozing, Sudden Increased Bleeding, Increased Pain/ Swelling, Increased Redness, Foul Smelling Discharge Call your doctor if you observe: Fever of 101 or Higher Suture Line Care: Avoid Pulling/Pushing, Avoid Pinching/Bending Additional Dressing/Incision Instructions:: Leave operative bandaids on for 2 days. When you remove dressing, leave Steri-Strips on until your follow-up appointment, or until the Steri-Strips fall off on their own. Allergies/Adverse Reactions: Allergies Latex, Natural Rubber Allergy (Verified 06/05/18 15:51) Rash Penicillins Allergy (Verified 06/05/18 15:51) Swelling lactose Adverse Reaction (Verified 06/05/18 15:51) Diarrhea Medications to take at Discharge albuterol sulfate HFA 90 mcg/actuation aerosol inhaler 2 puff INHALATION Q4H PRN g 04/11/17 Alogliptin Benzoate [Alogliptin] 25 mg PO DAILY 05/28/17 Basaglar Kwikpen U-100 46 unit SQ QHS PRN 05/28/17 Montelukast [Singulair] 10 mg PO QHS 05/28/17 Omeprazole 40 mg PO DAILY 05/28/17 furosemide 20 mg tablet 40 mg PO BID tab 09/21/17 glipizide 5 mg tablet 10 mg PO DAILY tab 09/21/17 lisinopril 40 mg tablet 40 mg PO QDAY 09/21/17 Ibuprofen 600 mg PO DAILY PRN 02/21/18 Lactobacillus Acidophilus [Acidophilus] 1 ea PO DAILY 02/21/18 Loperamide [Imodium] 2 mg PO BID PRN 03/07/18 Metoprolol Tartrate [Lopressor (beta nubia)] 50 mg PO BID #60 tab 03/08/18 amlodipine 5 mg tablet 5 mg PO DAILY 06/05/18 fexofenadine 180 mg tablet 180 mg PO DAILY 06/05/18 fluticasone 100 mcg-vilanterol 25 mcg/dose powder for inhalation 1 inh INHALATION Q24H #60 ea 06/05/18 Oxycodone HCl/Acetaminophen [Percocet 5/325] 1 - 2 tab PO Q4H PRN PRN 6 Days #30 tab 06/06/18 The following prescriptions were given: Oxycodone HCl/Acetaminophen [Percocet 5/325] 1 - 2 tab PO Q4H PRN PRN 6 Days #30 tab PRN Reason: Pain Primary Care Physician: John Castillo MD [Primary Care Provider] - Test Results: Test results from this visit will be discussed in further detail at your follow- up appointment, if applicable. Please Follow Up With: Pratima Patel PA-C - [phone] When: 7-10 days Proposed Discharge Date: 06/07/18
== END 2018-06-07 10:40 | disposition home or self-care (01) ==
LOC: SDC 13:03 → AC 13:05 → MS3 17:28
PROVIDERS: Anesthesiology; Family Medicine; Family Provider Family Medicine; PCP Family Medicine; Referring Provider Surgery; Visit Provider Surgery
PROC: (CPT 47562; principal; 2018-06-06 14:40)
DX: K80.10 Calculus of gallbladder with chronic cholecystitis without obstruction (principal); E87.5 Hyperkalemia; I10 Essential (primary) hypertension; K21.9 Gastro-esophageal reflux disease without esophagitis; N17.9 Acute kidney failure, unspecified; J45.909 Unspecified asthma, uncomplicated; D50.9 Iron deficiency anemia, unspecified; I87.2 Venous insufficiency (chronic) (peripheral); E11.42 Type 2 diabetes mellitus with diabetic polyneuropathy; Z89.429 Acquired absence of other toe(s), unspecified side; Z86.14 Personal history of Methicillin resistant Staphylococcus aureus infection
CPT/HCPCS: 00790; 47562; 36415; 80048; 82962; 83036; 85025; 85610; 85730; 88304; 93005; 94640; 94762; J7120; J2405

== ENCOUNTER → 2018-07-03 14:07 | Outpatient (CLI) | payer MEDICAID, SELFPAY ==
[2018-06-06 18:16] VITALS: BMI 42.2
--- NOTE | 2018-07-03 14:10 | RAD_ITS ---
STUDY: X-RAY CHEST REASON FOR EXAM: Female, 53 years old. Cough. History of asthma. TECHNIQUE: PA and lateral views of the chest. COMPARISON: Comparison is made with prior study dated March 06, 2018. FINDINGS: The lungs are clear and expanded. There is no demonstrated pleural abnormality. Normal size heart. Normal mediastinum and libby. Normal visualized pulmonary arteries. Normal visualized aortic arch and descending thoracic aorta. Normal visualized thoracic spine. Normal visualized ribs, clavicles, and shoulders. There is no demonstrated abnormality of the visualized soft tissue structures of the upper abdomen. RAD/Chest PA and Lateral IMPRESSION: Normal x-ray examination of the chest. Electronically Signed: Mauro Gannon, at 9:35 EDT , Service support ,
[2018-07-03 15:43] LABS: Anion Gap 7 (5-15); BUN 36 mg/dL (7-18); BUN/Creat Ratio 21.6 RATIO (10-20); Calcium,Total 8.3 mg/dL (8.5-10.1); Chloride 111 mmol/L (98-107); Creatinine, Serum 1.67 mg/dL (0.55-1.02); EST Glomerular Filtration Rate 34 mL/min (>60); Est Glom Filt Rate - Afr Amer 41 mL/min (>60); Glucose 73 mg/dL (74-106); Potassium 4.3 mmol/L (3.5-5.1); Sodium Level 142 mmol/L (136-145)
[2018-07-03 15:50] LABS: BNP,B-Type NATRIURETIC PEPTIDE 50.2 pg/mL (0-100)
== END ==
PROVIDERS: Family Provider Family Medicine; PCP Family Medicine; Referring Provider Family Medicine; Visit Provider Family Medicine
DX: R06.02 Shortness of breath (principal); R05 Cough; J45.909 Unspecified asthma, uncomplicated; E87.5 Hyperkalemia
CPT/HCPCS: 36415; 71046; 80048; 83880

== ENCOUNTER → 2018-07-06 14:54 | Outpatient (CLI) | payer MEDICAID, SELFPAY ==
[2018-06-06 18:16] VITALS: BMI 42.2
[2018-07-06 17:55] LABS: Anion Gap 9 (5-15); BUN 50 mg/dL (7-18); BUN/Creat Ratio 27.5 RATIO (10-20); Calcium,Total 8.2 mg/dL (8.5-10.1); Chloride 113 mmol/L (98-107); Creatinine, Serum 1.82 mg/dL (0.55-1.02); EST Glomerular Filtration Rate 31 mL/min (>60); Est Glom Filt Rate - Afr Amer 38 mL/min (>60); Glucose 125 mg/dL (74-106); Potassium 4.9 mmol/L (3.5-5.1); Sodium Level 144 mmol/L (136-145)
== END ==
PROVIDERS: Family Provider Family Medicine; PCP Family Medicine; Referring Provider Family Medicine; Visit Provider Family Medicine
DX: R06.00 Dyspnea, unspecified (principal)
CPT/HCPCS: 36415; 80048

== ENCOUNTER → 2018-07-13 14:17 | Outpatient (CLI) | payer MEDICAID, SELFPAY ==
[2018-06-06 18:16] VITALS: BMI 42.2
[2018-07-13 16:46] LABS: Anion Gap 6 (5-15); BUN 39 mg/dL (7-18); BUN/Creat Ratio 21.3 RATIO (10-20); Calcium,Total 8.3 mg/dL (8.5-10.1); Chloride 114 mmol/L (98-107); Creatinine, Serum 1.83 mg/dL (0.55-1.02); EST Glomerular Filtration Rate 31 mL/min (>60); Est Glom Filt Rate - Afr Amer 37 mL/min (>60); Glucose 103 mg/dL (74-106); Potassium 4.9 mmol/L (3.5-5.1); Sodium Level 143 mmol/L (136-145)
== END ==
PROVIDERS: Family Provider Family Medicine; PCP Family Medicine; Referring Provider Family Medicine; Visit Provider Family Medicine
DX: N18.3 Chronic kidney disease, stage 3 (moderate) (principal)
CPT/HCPCS: 36415; 80048

== ENCOUNTER → 2018-07-17 12:57 | Outpatient (CLI) | payer MEDICAID, SELFPAY ==
[2018-06-06 18:16] VITALS: BMI 42.2
[2018-07-17 13:01] LABS: Bacteria 0 SEEN /hpf (None Seen); Mucous, Urine 0 SEEN /hpf (<or=2+); Red Blood Cells-Urine 0 SEEN /hpf (0-5); White Blood Cells 0 SEEN /hpf (0-5)
[2018-07-17 13:51] LABS: Color, Urine Yellow (Yellow); Glucose, Dipstick Normal (Normal); Ketone-Dipstick Negative (Negative); Leukocyte Esterase-Dipstick 25 /ul (Negative); Nitrite-Dipstick Negative (Negative); Occult Blood-Urine 50 /ul (Negative); Protein-Dipstick 100 mg/dl (Negative); Urine Bilirubin Dipstick Negative (Negative); Urine Clarity Sl. Cloudy (Clear); Urine Urobilinogen Normal (Normal)
[2018-07-17 14:01] LABS: Squamous Epithelial Cells - UA 5-10 SEEN /hpf (5-10); Yeast-Urine 3+ /hpf (None Seen)
== END ==
PROVIDERS: Family Provider Family Medicine; PCP Family Medicine; Referring Provider Family Medicine; Visit Provider Family Medicine
DX: R30.0 Dysuria (principal)
CPT/HCPCS: 81001; 87086; 87088

== ENCOUNTER → 2018-07-18 14:45 | Outpatient (CLI) | payer MEDICAID, SELFPAY ==
[2018-07-18 14:06] VITALS: BMI 42.2
[2018-07-18 16:52] LABS: ALB/GLOB Ratio 0.8 RATIO (0.9-2.4); AST(SGOT) 18 U/L (15-37); Alanine Aminotransfer ALT/SGPT 16 U/L (13-56); Alkaline Phosphatase 105 U/L (45-117); Amylase 65 U/L (25-115); Anion Gap 7 (5-15); BUN 57 mg/dL (7-18); Calcium,Total 8.4 mg/dL (8.5-10.1); Chloride 111 mmol/L (98-107); EST Glomerular Filtration Rate 30 mL/min (>60); Est Glom Filt Rate - Afr Amer 36 mL/min (>60); Globulin 3.9 g/dL (2.2-4.2); Glucose 98 mg/dL (74-106); Lipase 343 U/L (73-393); Potassium 4.4 mmol/L (3.5-5.1); Protein, Total 6.9 g/dL (6.4-8.2); Sodium Level 141 mmol/L (136-145)
[2018-07-20 16:07] LABS: Endomysial Antibody IgA Negative (Negative)
[2018-07-23 12:05] LABS: Immunoglobulin A 449 mg/dL (87-352); t-Transglutaminase IgA <2 U/mL (0-3)
== END ==
PROVIDERS: Family Provider Family Medicine; PCP Family Medicine; Referring Provider Surgery; Visit Provider Surgery
DX: R19.7 Diarrhea, unspecified (principal)
CPT/HCPCS: 36415; 80053; 82150; 82784; 83516; 83690; 86255

== ENCOUNTER → 2018-07-20 20:16 | Outpatient (CLI) | payer MEDICAID, SELFPAY ==
[2018-07-18 14:06] VITALS: BMI 42.2
== END ==
PROVIDERS: Family Provider Family Medicine; PCP Family Medicine; Visit Provider Surgery
DX: R19.7 Diarrhea, unspecified (principal)
CPT/HCPCS: 87493

== ENCOUNTER → 2018-07-24 17:27 | Outpatient (CLI) | payer MEDICAID, SELFPAY ==
[2018-07-18 14:06] VITALS: BMI 42.2
[2018-07-24 18:40] LABS: Anion Gap 7 (5-15); BUN 48 mg/dL (7-18); BUN/Creat Ratio 21.3 RATIO (10-20); Calcium,Total 8.3 mg/dL (8.5-10.1); Chloride 115 mmol/L (98-107); Creatinine, Serum 2.25 mg/dL (0.55-1.02); EST Glomerular Filtration Rate 24 mL/min (>60); Est Glom Filt Rate - Afr Amer 29 mL/min (>60); Glucose 149 mg/dL (74-106); Potassium 5.2 mmol/L (3.5-5.1); Sodium Level 145 mmol/L (136-145)
== END ==
PROVIDERS: Family Medicine; Family Provider Family Medicine; PCP Family Medicine; Referring Provider Family Medicine; Visit Provider Family Medicine
DX: R94.4 Abnormal results of kidney function studies (principal)
CPT/HCPCS: 36415; 80048

== ENCOUNTER → 2018-07-27 15:17 | Outpatient (CLI) | payer MEDICAID, SELFPAY ==
[2018-07-18 14:06] VITALS: BMI 42.2
[2018-07-27 18:02] LABS: Anion Gap 7 (5-15); BUN 41 mg/dL (7-18); BUN/Creat Ratio 21.9 RATIO (10-20); Chloride 115 mmol/L (98-107); Creatinine, Serum 1.87 mg/dL (0.55-1.02); EST Glomerular Filtration Rate 30 mL/min (>60); Est Glom Filt Rate - Afr Amer 36 mL/min (>60); Glucose 172 mg/dL (74-106); Sodium Level 143 mmol/L (136-145)
== END ==
PROVIDERS: Family Provider Family Medicine; PCP Family Medicine; Referring Provider Family Medicine; Visit Provider Family Medicine
DX: N18.3 Chronic kidney disease, stage 3 (moderate) (principal)
CPT/HCPCS: 36415; 80048

== ENCOUNTER 2018-08-01 07:42 | Day surgery (SDC) | payer MEDICAID, SELFPAY ==
[2018-07-18 14:06] VITALS: BMI 42.2
--- NOTE | 2018-07-18 14:38 | HP_ITS ---
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 Is patient in pain?: No Allergies Latex, Natural Rubber Allergy (Verified 06/14/18 13:12) Rash Penicillins Allergy (Verified 06/14/18 13:12) Swelling lactose Adverse Reaction (Verified 06/14/18 13:12) Diarrhea Medications albuterol sulfate HFA 90 mcg/actuation aerosol inhaler 2 puff INHALATION Q4H PRN g 04/11/17 [History Confirmed 06/14/18] Alogliptin Benzoate [Alogliptin] 25 mg PO DAILY 05/28/17 [History Confirmed 06/14/18] Basaglar Kwikpen U-100 46 unit SQ QHS PRN 05/28/17 [History Confirmed 06/14/18] Montelukast [Singulair] 10 mg PO QHS 05/28/17 [History Confirmed 06/14/18] Omeprazole 40 mg PO DAILY 05/28/17 [History Confirmed 06/14/18] furosemide 20 mg tablet 40 mg PO BID tab 09/21/17 [History Confirmed 06/14/18] glipizide 5 mg tablet 10 mg PO DAILY tab 09/21/17 [History Confirmed 06/14/18] lisinopril 40 mg tablet 40 mg PO QDAY 09/21/17 [History Confirmed 06/14/18] Ibuprofen 600 mg PO DAILY PRN 02/21/18 [History Confirmed 06/14/18] Lactobacillus Acidophilus [Acidophilus] 1 ea PO DAILY 02/21/18 [History Confirmed 06/14/18] Loperamide [Imodium] 2 mg PO BID PRN 03/07/18 [History Confirmed 06/14/18] Metoprolol Tartrate [Lopressor (beta nubia)] 50 mg PO BID #60 tab 03/08/18 [Rx Confirmed 06/14/18] amlodipine 5 mg tablet 5 mg PO DAILY 06/05/18 [History Confirmed 06/14/18] fexofenadine 180 mg tablet 180 mg PO DAILY 06/05/18 [History Confirmed 06/14/18] fluticasone furoate 100 mcg-vilanterol 25 mcg/dose inhalation powder 1 inh INHALATION Q24H #60 ea 06/05/18 [Rx Confirmed 06/14/18] Is last menstrual period known: No Post menopausal: No Patient : No PFSH Medical History Iron deficiency anemia (Chronic) Diarrhea in adult patient (Resolved ~02/2016) Gait instability (Chronic) Diabetic foot ulcer (Resolved) Venous insufficiency (Chronic) History of amputation of hallux (Chronic) GERD (gastroesophageal reflux disease) (Chronic) Hypertension (Chronic) Delayed wound healing (Resolved) Edema of left lower extremity (Resolved) MRSA (methicillin resistant staph aureus) culture positive (Chronic) 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) Malnutrition (Resolved) Diabetes mellitus with polyneuropathy (Chronic) Vaginal candidiasis (Resolved) Diabetic neuropathy (Chronic) Diabetes mellitus type 2, uncontrolled (Chronic) Chronic ulcer of right great toe with fat layer exposed (Resolved) Diabetic ulcer of left great toe (Resolved) Puncture wound of toe of left foot (Resolved) Cellulitis of toe of left foot (Resolved) Surgical History Amputated toe (Resolved) H/O: hysterectomy (Resolved) History of section (Acute) History of colonoscopy (Acute ~02/2016) History of esophagogastroduodenoscopy (EGD) (Acute) S/P laparoscopic cholecystectomy (Acute ~06/2018) Family History Mother Diabetes Heart disease Hypertension Father Diabetes Brother Diabetes Social History Smoking Status: Never smoker second hand exposure: Yes alcohol intake: never substance use type: does not use HPI HPI HPI: DORIS EDWARD, is a 53 F who presents to the office today for HPI HPI Surgical H&P: Yes HPI: DORIS EDWARD, is a 53 F who presents to the office today for epigastric and right upper quadrant abdominal pain going into the back as well as diarrhea. When I initially saw her she had been having some significant right upper quadrant abdominal pain going into her back. She has had a CAT scan of her abdomen and pelvis which was done on May 19, 2018. This showed multiple gallstones workup in the emergency department showed that her liver function tests were normal as was her white count. She did have a shift and elevation in her neutrophils though. Her pain is increased when she is eating foods she is been having some diarrhea she is also been having some emesis and bloating at times. Patient does have a prior history of C. difficile hypertension anemia and was recently treated with Cipro. She has a history of achalasia and was treated with dilatation and on May 16 she underwent a barium swallow with fluoroscopy which showed stable dilatation of the esophagus without evidence of obstruction or gastroesophageal reflux disease. Finally the patient was seen in the emergency department on the 16 right flank plain and diagnosed with pyelonephritis she was given a prescription for Cipro instead of Bactrim Patient states that this pain she is experiencing now is different than what brought her to the emergency department. It is more associated with food intake. Pain is identical to the pain she had before her surgery. She has not been running any fevers. She has stopped taking her proton pump inhibitor and Imodium is not effective in controlling her diarrhea. Her last EGD was in 2015 just before she had her achalasia surgery done at the main campus. Exam Const General: no acute distress, well developed, well hydrated Orientation: oriented to person, oriented to place, oriented to time [facility] Head: normocephalic, atraumatic Ears: external ears normal Mouth: moist mucous membranes Eyes Sclera: sclerae normal Pupils: normal by confrontation Neck Neck: no lymphadenopathy noted Neck mass: No Thyroid: thyroid normal, symmetrical Chest Chest palpation & inspection: normal inspection of the chest Resp Effort & Inspection: normal respiratory effort Auscultation: clear to auscultation bilaterally Percussion: percussion normal Cardio Rate: regular rate Rhythm: regular rhythm GI Palpation: soft, no hepatosplenomegaly, no masses, tender Rectal Exam: other Other: Rectal exam deferred. Her abdomen is soft however she does have tenderness in the epigastric area she has no rebound guarding or peritoneal sign Extrem General: normal to inspection, no clubbing, cyanosis or edema Assessment & Plan Problems 1. Epigastric abdominal pain R10.13 2. Diarrhea, unspecified type R19.7 Plan I have discussed the above with the patient. I have offered the patient colonoscopy as well as an EGD with bx for evaluation. I have explained the risks/benefits of the procedure and described the procedure. I have discussed the risks with the patient, including but not limited to: infection, bleeding, perforation of the GI tract requiring emergency surgery, inability to complete the procedure, injury to any internal organs, complications of anesthesia, etc. - the patient understands and agrees to proceed. I have answered all the patient's questions to the patient's satisfaction and the patient has no further questions. The patient has been given instructions for the colon cleansing preparation. Complicated case. In addition to these 2 studies I am also going to obtain a celiac panel CBC with complete metabolic profile and amylase and lipase. Going to check her stool for C. difficile. And I am obtain a CAT scan of her abdomen and pelvis with p.o. contrast only. Orders Orders: Comprehensive Metabolic Profil Today R19.7 Celiac Disease Profile Today R19.7 Amylase Today R19.7 Lipase Today R19.7 Abdomen/Pel W ORAL Cont Only Today R19.7 CDIFF (Molecular) Today R19.7 Coding Level of Care Code Off vis,est,level 4 Diagnoses Epigastric abdominal pain R10.13 Diarrhea, unspecified type R19.7 ??Diarrhea type: unspecified type
[2018-07-31 14:20] VITALS: BMI 40.6
[2018-08-01] VITALS (8 sets, daily range): BP systolic 97–153; BP diastolic 66–83; PULSE 68–86; RESP 16–18; TEMP 36.1–37.1; O2SAT 92–99; BMI 40.1
[2018-08-01 08:31] LABS: Bedside Glucose 100 mg/dL (70-110)
--- NOTE | 2018-08-01 09:15 | EGD_PTH ---
PATIENT: DORIS EDWARD LOC: EN U#:[id number] AGE/SX: 53/F ROOM: RE08/01/[address]: Dr. Reji Lui MD : 1965 BED: DIS: 08/01/2018 SPEC #: [id number] RECD: 08/01/18 10:27 STATUS: MAXIMUS ISABELLA #: [id number] ELY: 08/01/18 09:[address]: Reji Lui DEPT: SURGICAL PATHOLOGY RECD BY: Bel Duvall ENTERED: 08/01/18 11:40 SP TYPE: EGD BIOPSY OT DR: Dr. Osmin Castillo MD Tissues: A - Gastric mucous membrane B - Esophageal mucous membrane C - Esophagus, NOS D - COLON BIOPSY Procedures: PAS Fungus (control) Special Stain Group II Special Stain Group I Surgery Specimen Level IV Alcian Blue/PAS (control) HEADER OPERATION: Colonoscopy, EGD ([place]) PRE-OP DIAGNOSIS: Epigastric abdominal pain, diarrhea TISSUE SUBMITTED: A. Antrum biopsy, histo and H. pylori, B. Esophageal biopsy, C. Mucosal abnormality esophagus biopsy, D. Random colon biopsy MICROSCOPIC DIAGNOSIS A. Antrum biopsy: Gastric mucosa with minimal superficial chronic inflammation. B. Esophageal biopsy: Squamogastric mucosa with moderate chronic inflammation, intraepithelial lymphocytes, basilar squamous hyperplasia, glandular villous transformation and epithelia atypia, favor reactive. See comment. PAS/Alcian blue stain with appropriate control is negativefor intestinal type goblet cell metaplasia. PAS stain with appropriate control is negative for organisms. C. Esophagus, mucosal abnormality, biopsy: Squamous mucosa with ulceration and acute inflammatory exudate. PAS stain with appropriate control is negative for fungal organisms. D. Colon, random biopsy: Colonic mucosa with mild lymphoid hyperplasia. Negative for active inflammation, intraepithelial inflammation and glandular atypia. CE:quan 08/02/18 COMMENT A. The results of immunohistochemistry for Helicobacter pylori will be reported separately ([id number]). B. Immunohistochemistry ([id number]) supports the above diagnosis. Case has been reviewed in consultation with Dr. Montez who concurs with the above diagnosis. IDC:[email or web address] MICROSCOPIC DESCRIPTION Slides are reviewed. GROSS DESCRIPTION A - Received in fixative is one container labeled with the patient's name and designated antrum biopsy, histo and H. pylori. The specimen consists of one irregular fragment of light marie soft tissue that measures 0.5 x 0.3 x 0.1 cm. The specimen is totally submitted in one cassette. B - Received in fixative is one container labeled with the patient's name and designated esophageal biopsy. The specimen consists of multiple irregular fragments of light marie soft tissue that in aggregate measure 1 x 0.3 x 0.1 cm. The specimen is totally submitted in one cassette. C - Received in fixative is one container labeled with the patient's name and designated mucosal esophagus. The specimen consists of two irregular fragments of light marie soft tissue that in aggregate measure 0.4 x 0.2 x 0.1 cm. The specimen is totally submitted in one cassette. D - Received in fixative is one container labeled with the patient's name and designated random colon biopsy. The specimen consists of multiple irregular fragments of light marie soft tissue that in aggregate measure 1.5 x 1 x 0.1 cm. The specimen is totally submitted in one cassette. / SJ:rg 08/01/18 TC:2 CPT: 61494 x4, 05456, 09804 x2
--- NOTE | 2018-08-01 09:15 | IMM_PTH ---
PATIENT: DORIS EDWARD LOC: EN U#:[id number] AGE/SX: 53/F ROOM: RE08/01/[address]: Dr. Reji Lui MD : 1965 BED: DIS: 08/01/2018 SPEC #: [id number] RECD: 08/01/18 15:07 STATUS: MAXIMUS REGe #: [id number] ELY: 08/01/18 09:[address]: Reji Lui DEPT: IMMUNOHISTOCHEMISTRY RECD BY: Germaine Thompson ENTERED: 08/01/18 15:08 SP TYPE: IMMUNO OTHR DR: Dr. Osmin Castillo MD Tissues: A - Stomach, NOS Procedures: H Pylori (initial) P53 (initial) PHYSICIAN & [place] [id number] SPECIMEN INFORMATION: Tissue Source: A - Antrum biopsy, B - Esophageal biopsy Clinical Info: Epigastric abdominal pain, diarrhea Specimen Number: [id number] A & B CPT code: 10299 x2 METHODOLOGY: Deparaffinized sections of prefer/formalin-fixed tissue or PAP/DQ stained slides are incubated with monoclonal/polyclonal antibodies/oligonucleotide probes. Localization is made via biotin free immunoperoxidase method. Appropriate controls are performed and reacted as expected. Results on target cell population are indicated in the following table: RESULTS: ANTIBODY / CLONE RESULT Block A H Pylori (polyclonal) negative Block B P53 (DO-7) negative These tests were developed and their performance characteristics determined by [facility]. They may not have been cleared or approved by the U.S. Food and Drug Administration. The FDA has determined that such clearance or approval is not necessary. INTERPRETATION: A. Antrum biopsy: Immunohistochemical stain with appropriate control is negative for Helicobacter organisms. CE:quan 08/02/18 ADDENDUM ADDENDUM ADDENDUM ADDENDUM ADDENDUM ADDENDUM 08/03/2018 12:46 ADDENDUM 08/03/2018 12:46 ADDENDUM 08/03/2018 12:46 ADDENDUM 08/03/2018 12:46 ADDENDUM 08/03/2018 12:46 B. Esophageal biopsy: Mild epithelial atypia, favor reactive. Clinical correlation is necessary. SJ:quan 08/03/18
--- NOTE | 2018-08-01 09:32 | PCM.HP.BLA ---
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 Is patient in pain?: No Allergies Latex, Natural Rubber Allergy (Verified 06/14/18 13:12) Rash Penicillins Allergy (Verified 06/14/18 13:12) Swelling lactose Adverse Reaction (Verified 06/14/18 13:12) Diarrhea Medications albuterol sulfate HFA 90 mcg/actuation aerosol inhaler 2 puff INHALATION Q4H PRN g 04/11/17 [History Confirmed 06/14/18] Alogliptin Benzoate [Alogliptin] 25 mg PO DAILY 05/28/17 [History Confirmed 06/14/18] Basaglar Kwikpen U-100 46 unit SQ QHS PRN 05/28/17 [History Confirmed 06/14/18] Montelukast [Singulair] 10 mg PO QHS 05/28/17 [History Confirmed 06/14/18] Omeprazole 40 mg PO DAILY 05/28/17 [History Confirmed 06/14/18] furosemide 20 mg tablet 40 mg PO BID tab 09/21/17 [History Confirmed 06/14/18] glipizide 5 mg tablet 10 mg PO DAILY tab 09/21/17 [History Confirmed 06/14/18] lisinopril 40 mg tablet 40 mg PO QDAY 09/21/17 [History Confirmed 06/14/18] Ibuprofen 600 mg PO DAILY PRN 02/21/18 [History Confirmed 06/14/18] Lactobacillus Acidophilus [Acidophilus] 1 ea PO DAILY 02/21/18 [History Confirmed 06/14/18] Loperamide [Imodium] 2 mg PO BID PRN 03/07/18 [History Confirmed 06/14/18] Metoprolol Tartrate [Lopressor (beta nubia)] 50 mg PO BID #60 tab 03/08/18 [Rx Confirmed 06/14/18] amlodipine 5 mg tablet 5 mg PO DAILY 06/05/18 [History Confirmed 06/14/18] fexofenadine 180 mg tablet 180 mg PO DAILY 06/05/18 [History Confirmed 06/14/18] fluticasone furoate 100 mcg-vilanterol 25 mcg/dose inhalation powder 1 inh INHALATION Q24H #60 ea 06/05/18 [Rx Confirmed 06/14/18] Is last menstrual period known: No Post menopausal: No Patient : No PFSH Medical History Iron deficiency anemia (Chronic) Diarrhea in adult patient (Resolved ~02/2016) Gait instability (Chronic) Diabetic foot ulcer (Resolved) Venous insufficiency (Chronic) History of amputation of hallux (Chronic) GERD (gastroesophageal reflux disease) (Chronic) Hypertension (Chronic) Delayed wound healing (Resolved) Edema of left lower extremity (Resolved) MRSA (methicillin resistant staph aureus) culture positive (Chronic) 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) Malnutrition (Resolved) Diabetes mellitus with polyneuropathy (Chronic) Vaginal candidiasis (Resolved) Diabetic neuropathy (Chronic) Diabetes mellitus type 2, uncontrolled (Chronic) Chronic ulcer of right great toe with fat layer exposed (Resolved) Diabetic ulcer of left great toe (Resolved) Puncture wound of toe of left foot (Resolved) Cellulitis of toe of left foot (Resolved) Surgical History Amputated toe (Resolved) H/O: hysterectomy (Resolved) History of section (Acute) History of colonoscopy (Acute ~02/2016) History of esophagogastroduodenoscopy (EGD) (Acute) S/P laparoscopic cholecystectomy (Acute ~06/2018) Family History Mother Diabetes Heart disease Hypertension Father Diabetes Brother Diabetes Social History Smoking Status: Never smoker second hand exposure: Yes alcohol intake: never substance use type: does not use HPI HPI HPI: DORIS WAGNER, is a 53 F who presents to the office today for HPI HPI Surgical H&P: Yes HPI: DORIS EDWARD, is a 53 F who presents to the office today for epigastric and right upper quadrant abdominal pain going into the back as well as diarrhea. When I initially saw her she had been having some significant right upper quadrant abdominal pain going into her back. She has had a CAT scan of her abdomen and pelvis which was done on May 19, 2018. This showed multiple gallstones workup in the emergency department showed that her liver function tests were normal as was her white count. She did have a shift and elevation in her neutrophils though. Her pain is increased when she is eating foods she is been having some diarrhea she is also been having some emesis and bloating at times. Patient does have a prior history of C. difficile hypertension anemia and was recently treated with Cipro. She has a history of achalasia and was treated with dilatation and on May 16 she underwent a barium swallow with fluoroscopy which showed stable dilatation of the esophagus without evidence of obstruction or gastroesophageal reflux disease. Finally the patient was seen in the emergency department on the right flank plain and diagnosed with pyelonephritis she was given a prescription for Cipro instead of Bactrim Patient states that this pain she is experiencing now is different than what brought her to the emergency department. It is more associated with food intake. Pain is identical to the pain she had before her surgery. She has not been running any fevers. She has stopped taking her proton pump inhibitor and Imodium is not effective in controlling her diarrhea. Her last EGD was in 2015 just before she had her achalasia surgery done at the main campus. Exam Const General: no acute distress, well developed, well hydrated Orientation: oriented to person, oriented to place, oriented to time [facility] Head: normocephalic, atraumatic Ears: external ears normal Mouth: moist mucous membranes Eyes Sclera: sclerae normal Pupils: normal by confrontation Neck Neck: no lymphadenopathy noted Neck mass: No Thyroid: thyroid normal, symmetrical Chest Chest palpation & inspection: normal inspection of the chest Resp Effort & Inspection: normal respiratory effort Auscultation: clear to auscultation bilaterally Percussion: percussion normal Cardio Rate: regular rate Rhythm: regular rhythm GI Palpation: soft, no hepatosplenomegaly, no masses, tender Rectal Exam: other Other: Rectal exam deferred. Her abdomen is soft however she does have tenderness in the epigastric area she has no rebound guarding or peritoneal sign Extrem General: normal to inspection, no clubbing, cyanosis or edema Assessment & Plan Problems 1. Epigastric abdominal pain R10.13 2. Diarrhea, unspecified type R19.7 Plan I have discussed the above with the patient. I have offered the patient colonoscopy as well as an EGD with bx for evaluation. I have explained the risks/benefits of the procedure and described the procedure. I have discussed the risks with the patient, including but not limited to: infection, bleeding, perforation of the GI tract requiring emergency surgery, inability to complete the procedure, injury to any internal organs, complications of anesthesia, etc. - the patient understands and agrees to proceed. I have answered all the patient's questions to the patient's satisfaction and the patient has no further questions. The patient has been given instructions for the colon cleansing preparation. Complicated case. In addition to these 2 studies I am also going to obtain a celiac panel CBC with complete metabolic profile and amylase and lipase. Going to check her stool for C. difficile. And I am obtain a CAT scan of her abdomen and pelvis with p.o. contrast only. Orders Orders: Comprehensive Metabolic Profil Today R19.7 Celiac Disease Profile Today R19.7 Amylase Today R19.7 Lipase Today R19.7 Abdomen/Pel W ORAL Cont Only Today R19.7 CDIFF (Molecular) Today R19.7 Coding Level of Care Code Off vis,est,level 4 Diagnoses Epigastric abdominal pain R10.13 Diarrhea, unspecified type R19.7 ??Diarrhea type: unspecified type 07/23/18 0602 <Electronically signed by Reji Lui MD> Date: Time: Reji Lui MD CC: Osmin Castillo MD; Reji Lui MD ~ Date Dictated: 07/18/18 1438 Date Transcribed: 07/19/18 0830 Formation Fracturing Operator: Signed ____ I have re-examined the patient. There are no clinical changes since date of exam. ____ See Progress Notes for Changes ____ Dictated on Admission Date: Time: Signature: I have re-examined the patient. There are no clinical changes since date of exam.
--- NOTE | 2018-08-01 10:20 | OP.ENDO_ITS ---
08/01/2018 John Castillo [address] [place] [address] Re : Upper GI endoscopy procedure for Lori Ashby Dear Dr. Castillo This procedure was performed on Wednesday, August 01, 2018. My impressions and recommendations are as follows: Impressions : - A previous surgical anastomosis was found, characterized by visible sutures. Biopsied. - Gastritis. Biopsied. - Normal examined duodenum. No specimens collected. - LA Grade A reflux esophagitis. Biopsied. Recommendations : - Await pathology results. - Repeat upper endoscopy at appointment to be scheduled for surveillance based on pathology results. - Return to my office in 1 week. - Continue present medications. My findings are described in the full procedure note, which is enclosed. If I can be of further assistance, please feel free to contact me at Doctor phone number(s): , Fax: [phone], Work: . Sincerely, MD Reji Faustin MD 08/01/2018 10:20:19 AM This report has been signed electronically.
--- NOTE | 2018-08-01 10:25 | OP.ENDO_ITS ---
08/01/2018 John Castillo [address] [place] [address] Re : Colonoscopy procedure for Lori Ashby Dear Dr. Castillo This procedure was performed on Wednesday, August 01, 2018. My impressions and recommendations are as follows: Impressions : - Preparation of the colon was inadequate. - Stool in the entire examined colon. She will need golytly for her next prep. - The entire examined colon is normal. Biopsied. - The examination was otherwise normal. Recommendations : - Discharge patient to home. - Resume previous diet. - Continue present medications. - Await pathology results. - Repeat colonoscopy in 3 years for surveillance. - Return to my office in 1 week. My findings are described in the full procedure note, which is enclosed. If I can be of further assistance, please feel free to contact me at Doctor phone number(s): , Fax: [phone], Work: . Sincerely, MD Reji Faustin MD 08/01/2018 10:24:48 AM This report has been signed electronically.
== END 2018-08-01 11:17 | disposition home or self-care (01) ==
LOC: EN 07:43 → AC 07:44
PROVIDERS: Family Provider Family Medicine; PCP Family Medicine; Referring Provider Family Medicine; Visit Provider Surgery
PROC: 0DJD8ZZ Inspection of Lower Intestinal Tract, Via Natural or Artificial Opening Endoscopic (ICD-10-PCS; CPT 45378; principal; 2018-08-01 09:10)
DX: R10.13 Epigastric pain (principal); R19.7 Diarrhea, unspecified; K29.70 Gastritis, unspecified, without bleeding; K21.0 Gastro-esophageal reflux disease with esophagitis; R14.0 Abdominal distension (gaseous); Z98.890 Other specified postprocedural states; E11.40 Type 2 diabetes mellitus with diabetic neuropathy, unspecified; I10 Essential (primary) hypertension; I87.2 Venous insufficiency (chronic) (peripheral); D50.9 Iron deficiency anemia, unspecified; J45.909 Unspecified asthma, uncomplicated; G47.30 Sleep apnea, unspecified
CPT/HCPCS: 43239; 45380; 82962; 88305; 88312; 88313; 88342; J7120; J2405

== ENCOUNTER → 2018-08-03 16:45 | Outpatient (CLI) | payer MEDICAID, SELFPAY ==
[2018-07-18 14:06] VITALS: BMI 42.2
[2018-08-01 08:03] VITALS: BMI 40.1
--- NOTE | 2018-08-03 16:51 | CT_ITS ---
HISTORY: DIARRHEA, RIGHT FLANK PAIN. HX OF IVANNA, SHANON/BSO, ESPOH CANCER EXAMINATION: CT Abdomen And Pelvis W/O Contrast TECHNIQUE: Helically acquired images were obtained of the abdomen and pelvis without oral or IV contrast as per renal stone protocol. A radiation dose optimization technique was used for this scan. IV Contrast dosage and agent: None. Oral contrast: None. COMPARISON: 05/19/2018 FINDINGS: Lower thorax: Mild cardiomegaly. Small pericardial effusion. Mild circumferential mural thickening of the distal esophagus. No pleural effusion. Cholecystectomy. No biliary dilatation. Limited non-infusion exam. Allowing for this, negative liver, spleen, and pancreas. Both kidneys are normal in position. No renal or ureteral calculi and no hydronephrosis or hydroureter. Adrenal glands are not enlarged. Abdominal aorta is normal in caliber. No ascites or retroperitoneal lymph node enlargement. GI tract: No obstruction. Normal appendix. No colitis or pericolonic inflammatory changes seen. Pelvis: Hysterectomy. Negative urinary bladder. No free fluid or lymph node enlargement. Bones: Chronic compression deformity of the T11 superior endplate. Transitional vertebra of the lumbosacral junction. No acute osseous abnormality. CT/Abdomen/Pel W ORAL Cont Only IMPRESSION: 1. No hydronephrosis, urolithiasis, or acute abdominal disease identified. 2. Mild circumferential mural thickening of the distal esophagus. 3. Mild cardiomegaly with small pericardial effusion. Individualized dose optimization techniques were used for this CT. at 0642 Reported and signed by: Horacio Pereyra MD Electronically Signed: Horacio Pereyra, at 6:41 EDT Tel , Service support ,
== END ==
PROVIDERS: Family Provider Family Medicine; PCP Family Medicine; Referring Provider Surgery; Visit Provider Surgery
DX: R19.7 Diarrhea, unspecified (principal)
CPT/HCPCS: 74176

== ENCOUNTER → 2018-08-06 16:14 | Outpatient (CLI) | payer MEDICAID, SELFPAY ==
[2018-08-01 08:03] VITALS: BMI 40.1
[2018-08-06 18:29] LABS: BUN 41 mg/dL (7-18); Creatinine, Serum 1.77 mg/dL (0.55-1.02); EST Glomerular Filtration Rate 32 mL/min (>60); Glucose 237 mg/dL (74-106)
[2018-08-06 18:30] LABS: Anion Gap 8 (5-15); BUN/Creat Ratio 23.2 RATIO (10-20); Calcium,Total 8.4 mg/dL (8.5-10.1); Chloride 115 mmol/L (98-107); Est Glom Filt Rate - Afr Amer 39 mL/min (>60); Potassium 5.5 mmol/L (3.5-5.1); Sodium Level 141 mmol/L (136-145)
== END ==
PROVIDERS: Family Provider Family Medicine; PCP Family Medicine; Referring Provider Family Medicine; Visit Provider Family Medicine
DX: N18.3 Chronic kidney disease, stage 3 (moderate) (principal)
CPT/HCPCS: 36415; 80048

== ENCOUNTER → 2018-08-14 12:33 | Outpatient (CLI) | payer MEDICAID, SELFPAY ==
[2018-07-31 14:20] VITALS: BMI 40.6
[2018-08-01 08:03] VITALS: BMI 40.1
== END ==
PROVIDERS: Family Provider Family Medicine; PCP Family Medicine; Referring Provider Nurse Practitioner Acute Care; Visit Provider Nurse Practitioner Acute Care
DX: G47.33 Obstructive sleep apnea (adult) (pediatric) (principal)
CPT/HCPCS: 98960; G0463

== ENCOUNTER → 2018-08-28 13:34 | Outpatient (CLI) | payer MEDICAID, SELFPAY ==
[2018-08-01 08:03] VITALS: BMI 40.1
[2018-08-28 15:55] LABS: Erythrocyte Sedimentation Rate 45 mm/hr (0-30)
[2018-08-28 16:01] LABS: Anion Gap 6 (5-15); BUN 37 mg/dL (7-18); BUN/Creat Ratio 20.1 RATIO (10-20); Calcium,Total 8.4 mg/dL (8.5-10.1); Chloride 114 mmol/L (98-107); Creatinine, Serum 1.84 mg/dL (0.55-1.02); EST Glomerular Filtration Rate 31 mL/min (>60); Est Glom Filt Rate - Afr Amer 37 mL/min (>60); Ferritin 167 ng/mL (8-252); Glucose 190 mg/dL (74-106); Iron 51 ug/dL (50-170); Potassium 5.6 mmol/L (3.5-5.1); Sodium Level 142 mmol/L (136-145); Vitamin B12 393 pg/mL (211-911); Vitamin D,25 Hydroxy 14.5 ng/mL (29.95-100.01)
== END ==
PROVIDERS: Family Provider Family Medicine; PCP Family Medicine; Referring Provider Family Medicine; Visit Provider Family Medicine
DX: L65.9 Nonscarring hair loss, unspecified (principal); N18.3 Chronic kidney disease, stage 3 (moderate)
CPT/HCPCS: 36415; 80048; 82306; 82607; 82728; 83540; 85652

== ENCOUNTER → 2018-08-29 12:53 | Outpatient (CLI) | payer MEDICAID, SELFPAY ==
[2018-08-01 08:03] VITALS: BMI 40.1
[2018-08-29 14:35] LABS: Cholesterol 144 mg/dL (200); High Density Lipoprotein 43 mg/dL; Triglycerides 113 mg/dL; Very Low Density Lipoprotein 23 mg/dL (5-40)
== END ==
PROVIDERS: Family Provider Family Medicine; PCP Family Medicine; Referring Provider Family Medicine; Visit Provider Family Medicine
DX: E11.622 Type 2 diabetes mellitus with other skin ulcer (principal)
CPT/HCPCS: 36415; 80061

== ENCOUNTER → 2018-09-25 15:59 | Outpatient (CLI) | payer MEDICAID, SELFPAY ==
[2018-08-01 08:03] VITALS: BMI 40.1
--- NOTE | 2018-09-25 16:03 | RAD_ITS ---
STUDY: X-RAY - THORACIC SPINE REASON FOR EXAM: Female, 53 years old. Thoracic back pain. TECHNIQUE: 3 view(s) of the thoracic spine were obtained. COMPARISON: Chest radiograph dated July 13, 2018 FINDINGS: There are degenerative changes of C6-C7. Normal kyphosis of the thoracic spine. There is no substantial scoliosis. There is multilevel endplate spondylosis of the thoracic vertebrae. There is a grossly stable T11 anterior compression deformity. Normal disc space heights. The soft tissue structures are unremarkable. RAD/Thoracic Spine 2 Views IMPRESSION: Degenerative changes. Stable T11 anterior compression deformity. Electronically Signed: Luba Weston MD at 16:24 EDT Tel , Service support ,
[2018-09-25 17:53] LABS: Anion Gap 9 (5-15); BUN 41 mg/dL (7-18); Calcium,Total 8.2 mg/dL (8.5-10.1); Chloride 112 mmol/L (98-107); Creatinine, Serum 1.86 mg/dL (0.55-1.02); EST Glomerular Filtration Rate 30 mL/min (>60); Est Glom Filt Rate - Afr Amer 37 mL/min (>60); Glucose 140 mg/dL (74-106); Potassium 5.2 mmol/L (3.5-5.1); Sodium Level 141 mmol/L (136-145)
[2018-09-27 16:07] LABS: Endomysial Antibody IgA Negative (Negative)
[2018-09-28 11:28] LABS: Deamidated Gliadin IgA 4 units (0-19); Deamidated Gliadin IgG 2 units (0-19); Immunoglobulin A 394 mg/dL (87-352); t-Transglutaminase IgA <2 U/mL (0-3)
[2018-09-30 06:16] LABS: Beef <0.10 kU/L (Class 0); Corn <0.10 kU/L (Class 0); Egg, Whole <0.10 kU/L (Class 0); Milk (Cow) <0.10 kU/L (Class 0); Peanut <0.10 kU/L (Class 0); Pork <0.10 kU/L (Class 0); Soybean <0.10 kU/L (Class 0); Wheat <0.10 kU/L (Class 0)
[2018-09-30 13:57] LABS: Chocolate <0.10 kU/L (Class 0)
== END ==
PROVIDERS: Family Provider Family Medicine; PCP Family Medicine; Referring Provider Family Medicine; Visit Provider Family Medicine
DX: R19.7 Diarrhea, unspecified (principal); E11.622 Type 2 diabetes mellitus with other skin ulcer; M54.6 Pain in thoracic spine
CPT/HCPCS: 36415; 72070; 80048; 82784; 83516; 86003; 86005; 86255

== ENCOUNTER → 2018-11-27 15:45 | Outpatient (CLI) | payer MEDICAID, SELFPAY ==
[2018-08-01 08:03] VITALS: BMI 40.1
--- NOTE | 2018-11-27 15:49 | RAD_ITS ---
STUDY: X-RAY - LUMBAR SPINE REASON FOR EXAM: Female, 53 years old. Back pain TECHNIQUE: 5 view(s) of the lumbar spine were obtained. COMPARISON: Previous study of 10/29/2017 FINDINGS: Normal lumbar lordosis. There is no substantial scoliosis. There is a normal alignment of the vertebrae. There is minimal multilevel endplate spondylosis. Normal disc space heights. There are degenerative facet changes bilaterally at the L4-5 and L5-S1 levels. The soft tissue structures are unremarkable. RAD/L/S Spine Min 4 Views IMPRESSION: Degenerative changes of the spine, as detailed above. Findings are stable in the interval. Electronically Signed: Flaco Almonte MD at 21:47 EDT , Service support ,
[2018-11-27 15:52] LABS: Mucous, Urine 0 SEEN /hpf (<or=2+)
[2018-11-27 17:39] LABS: Absolute Lymphocyte Count 1.52 X10^3/uL (0.83-4.51); Absolute Neutrophil Count 5.5 X10^3/uL (2.0-7.7); Basophil# 0.05 X10^3/uL; Basophil% 0.6 % (0-1); Eosinophil# 0.19 X10^3/uL; Eosinophils% 2.4 % (0-5); Hematocrit 31.2 % (37-47); Hemoglobin 9.4 g/dL (12.0-15.0); Lymphocyte # 1.52 X10^3/ul (4.0); Lymphocyte % 19.5 % (19-41); Mean Corp Hgb Conc 30.1 g/dL (32-36); Mean Corpuscular Hgb 27.8 pg (27.0-32.0); Mean Corpuscular Volume 92.3 fL (81-99); Mean Platelet Vol. 12.6 fl (6.2-12.0); Monocyte# 0.51 X10^3/uL; Monocyte% 6.6 % (0-10); NRBC Flagged by Analyzer 0 % (0-5); Neutrophil # 5.47 X10^3/uL (2.7-7.7); Neutrophil % 70.4 % (47-70); Platelet Count 191 K/mm3 (150-450); RBC Distribution Width CV 13.5 % (11.6-14.6); RBC Distribution Width SD 46.2 fl (35.1-43.9); Red Blood Count 3.38 M/mm3 (4.2-5.4); White Blood Count 7.8 K/mm3 (4.4-11.0)
[2018-11-27 17:47] LABS: Color, Urine Yellow (Yellow); Glucose, Dipstick Normal (Normal); Ketone-Dipstick Negative (Negative); Leukocyte Esterase-Dipstick 25 /ul (Negative); Nitrite-Dipstick Negative (Negative); Occult Blood-Urine 25 /ul (Negative); Protein-Dipstick 500 mg/dl (Negative); Urine Bilirubin Dipstick Negative (Negative); Urine Clarity Cloudy (Clear); Urine Urobilinogen Normal (Normal)
[2018-11-27 17:54] LABS: ALB/GLOB Ratio 0.8 RATIO (0.9-2.4); AST(SGOT) 22 U/L (15-37); Alanine Aminotransfer ALT/SGPT 20 U/L (13-56); Alkaline Phosphatase 99 U/L (45-117); Anion Gap 7 (5-15); BUN 46 mg/dL (7-18); BUN/Creat Ratio 23.1 RATIO (10-20); Calcium,Total 8.1 mg/dL (8.5-10.1); Chloride 116 mmol/L (98-107); Creatinine, Serum 1.99 mg/dL (0.55-1.02); EST Glomerular Filtration Rate 28 mL/min (>60); Est Glom Filt Rate - Afr Amer 34 mL/min (>60); Globulin 3.9 g/dL (2.2-4.2); Glucose 184 mg/dL (74-106); Potassium 5.1 mmol/L (3.5-5.1); Protein, Total 6.9 g/dL (6.4-8.2); Sodium Level 142 mmol/L (136-145)
[2018-11-27 18:00] LABS: Erythrocyte Sedimentation Rate 38 mm/hr (0-30)
[2018-11-27 18:14] LABS: Hyaline Cast 0-5 SEEN /lpf (0-5); Squamous Epithelial Cells - UA 0-5 SEEN /hpf (5-10)
[2018-11-27 18:15] LABS: Fine Granular Cast- Urine 0-5 SEEN /lpf (0-5); Yeast-Urine 4+ /hpf (None Seen)
[2018-11-27 18:18] LABS: Bacteria 1+ /hpf (None Seen); Red Blood Cells-Urine 0-5 SEEN /hpf (0-5)
[2018-11-27 18:19] LABS: Transitional Epithelial - Ur 0-5 SEEN /hpf (0-5); White Blood Cells 10-25 SEEN /hpf (0-5)
== END ==
PROVIDERS: Family Provider Family Medicine; PCP Family Medicine; Referring Provider Family Medicine; Visit Provider Family Medicine
DX: M54.9 Dorsalgia, unspecified (principal); N18.3 Chronic kidney disease, stage 3 (moderate); E11.622 Type 2 diabetes mellitus with other skin ulcer
CPT/HCPCS: 36415; 72110; 80053; 81001; 85025; 85652; 87086; 87088

== ENCOUNTER 2019-02-27 07:54 | Emergency (ER) | payer MEDICAID, SELFPAY ==
[2018-08-01 08:03] VITALS: BMI 40.1
[2019-02-27 07:56] VITALS: BP 214/94; PULSE 82; RESP 15; TEMP 36.5; O2SAT 99; BMI 39.9
--- NOTE | 2019-02-27 08:04 | CT_ITS ---
STUDY: CT BRAIN WITHOUT CONTRAST REASON FOR EXAM: Female, 53 years old. RADIATION DOSAGE (If Supplied By Facility): CTDIvol = ( 44.99 ) mGy, DLP = ( 829.85 ) mGycm TECHNIQUE: Transaxial CT imaging of the brain was performed without administration of intravenous contrast material. Individualized dose optimization techniques were used for this CT. COMPARISON: March 06, 2018. FINDINGS: Normal soft tissue structures. Normal calvarium. Normal size ventricles and extra-axial spaces for the patient's age. Normal white matter tracts of the cerebral hemispheres. Normal basal ganglia and thalami. Normal brainstem. Normal cerebellum. There is no intracranial hemorrhage. There are no findings of an acute ischemic infarction. Normal visualized paranasal sinuses. CT/Brain/Head without Contrast IMPRESSION: Normal unenhanced CT scan of the brain. Unchanged since March 06, 2018. Electronically Signed: Jc Ramirez, at 8:49 EST Tel , Service support ,
--- NOTE | 2019-02-27 08:05 | EKG12_ITS ---
Test Reason : HYPERTENSON Blood Pressure : / mmHG Vent. Rate : 083 BPM Atrial Rate : 083 BPM P-R Int : 170 ms QRS Dur : 084 ms QT Int : 370 ms P-R-T Axes : 021 -04 041 degrees QTc Int : 434 ms Normal sinus rhythm Normal ECG Confirmed by UMA HARO, SHEELA ([id number]), editor managing director TOOTIE CAGE ([id number]) on 03/01/2019 11:06:04 AM Referred By: OBDULIO Confirmed By:SHEELA EATON MD
--- NOTE | 2019-02-27 08:11 | ED.DCSUM_ITS ---
- ER Visit Summary Date of Service: 02/27/19 Chief Complaint: Headache History of Present Illness: The patient is a 53 F with a headache since yesterday afternoon. Pain is left frontal. She had this month ago, and it was associated with high blood sugar. She is also complaining of high blood pressure. She says she is compliant with her medications. Denies any other pain, symptoms, or neurologic issues. Physical Examination: Blood pressure 214/94. Otherwise vitals normal. Edison rologic exam is unremarkable. Heart regular. Lungs clear. Skin appears normal. Test Results: EKG, labs, imaging pending. Emergency Department Course and Treatment: Patient was placed on a monitor. Given her symptoms, she was treated with Zofran and labetalol. Will check EKG, labs, imaging. EKG showed sinus rhythm at a rate of 83. No sign of ischemia or infarction pattern. Chest x-ray was normal. CT brain normal. Hemoglobin stable at 9.7. Potassium 5.8. This is elevated for her. She typically runs in the fives, and has been as high as 5.9. Creatinine stable 2.06. Troponin normal. Repeat blood pressure after Zofran and labetalol was 187/82. She continued to have a headache and was treated with Compazine, Benadryl, and Toradol. Repeat blood pressure after that was 171/61. She was feeling better and requesting discharge. Patient was notified that her potassium was elevated, and that this could cause further complications for her. She would still like to go home. I spoke with Dr. Calix who is on-call for her PCP. We will stop her lisinopril, and start Lasix 40 mg daily. He will also increase her amlodipine and metoprolol. These new prescriptions were called into her pharmacy at [facility]. He also placed an order for a repeat metabolic panel. The patient should have this done on Monday. She may present to his office or the hospital for this. Patient was notified. If she has any new or worsening issues, she should return right away. Treatment Plan: As above Disposition: Discharge Impression: 1. Hypertension 2. Hyperkalemia 3. Headache This note was generated with Tempeestation software. It may contain incorrect words, spelling, and punctuation that were not noted in review of the chart prior to signing ED Disposition - Plan for ED Patient: Referrals: John Castillo MD [Primary Care Provider] -
[2019-02-27 08:23] LABS: Absolute Lymphocyte Count 1.67 X10^3/uL (0.83-4.51); Basophil# 0.07 X10^3/uL; Basophil% 0.9 % (0-1); Eosinophil# 0.27 X10^3/uL; Eosinophils% 3.6 % (0-5); Hematocrit 32.3 % (37-47); Hemoglobin 9.7 g/dL (12.0-15.0); Lymphocyte # 1.67 X10^3/ul (4.0); Mean Corpuscular Hgb 27.7 pg (27.0-32.0); Mean Corpuscular Volume 92.3 fL (81-99); Mean Platelet Vol. 11.5 fl (6.2-12.0); Monocyte# 0.54 X10^3/uL; Monocyte% 7.1 % (0-10); NRBC Flagged by Analyzer 0 % (0-5); Neutrophil % 65.9 % (47-70); Platelet Count 220 K/mm3 (150-450); RBC Distribution Width SD 47.3 fl (35.1-43.9); White Blood Count 7.6 K/mm3 (4.4-11.0)
[2019-02-27] MEDS: Ondansetron 4 MG/2 ML Vial IV (08:25)
[2019-02-27 08:28] VITALS: BP 219/90; PULSE 84; RESP 17; O2SAT 95
[2019-02-27 08:38] LABS: Anion Gap 6 (5-15); BUN 33 mg/dL (7-18); Calcium,Total 8.6 mg/dL (8.5-10.1); Chloride 121 mmol/L (98-107); Creatinine, Serum 2.06 mg/dL (0.55-1.02); EST Glomerular Filtration Rate 27 mL/min (>60); Est Glom Filt Rate - Afr Amer 32 mL/min (>60); Estimated Creatinine Clearance 28.75 ml/min; Glucose 78 mg/dL (74-106); Potassium 5.8 mmol/L (3.5-5.1); Sodium Level 146 mmol/L (136-145)
--- NOTE | 2019-02-27 08:39 | RAD_ITS ---
STUDY: X-RAY CHEST REASON FOR EXAM: Female, 53 years old. TECHNIQUE: 1 view COMPARISON: July 03, 2018 FINDINGS: The lungs are clear and expanded. There is no demonstrated pleural abnormality. Normal size heart. Normal mediastinum and libby. Normal visualized pulmonary arteries. Normal visualized aortic arch and descending thoracic aorta. Normal visualized thoracic spine. Normal visualized ribs, clavicles, and shoulders. There is no demonstrated abnormality of the visualized soft tissue structures of the upper abdomen. RAD/Chest 1 View (Portable) IMPRESSION: Normal x-ray examination of the chest unchanged since July 03, 2018. Electronically Signed: Jc Ramirez, at 9:15 EST Tel , Service support ,
[2019-02-27 08:57] VITALS: BP 187/82; PULSE 87; RESP 17; O2SAT 96
[2019-02-27] MEDS: proCHLORPERazine 10 MG/2 ML Vial IV (09:07)
[2019-02-27] MEDS: DiphenhydrAMINE 50 MG/ML Syringe 25 MG IV (09:08)
[2019-02-27] MEDS: Ketorolac 15 MG/ML Vial IV (09:09)
[2019-02-27 09:10] VITALS: BP 171/61; PULSE 88; RESP 17; O2SAT 94
--- NOTE | 2019-02-27 09:44 | ED.DEP ---
ED Disposition - Plan for ED Patient: Instructions: HYPERTENSION, Established Referrals: John Castillo MD [Primary Care Provider] - Additional Instructions: Stop taking lisinopril. You have new prescriptions at [facility] [place]: Start taking Lasix. You also have increased doses of amlodipine and metoprolol for your blood pressure. Follow-up with your doctors office on Monday to recheck your metabolic panel, specifically your potassium.
[2019-02-27 09:51] VITALS: BP 167/79; PULSE 72; RESP 15; O2SAT 95; O2SAT 96
== END 2019-02-27 09:52 | disposition home or self-care (01) ==
LOC: ED 08:27
PROVIDERS: Emergency Provider Emergency Medicine; Family Provider Family Medicine; PCP Family Medicine
DX: I10 Essential (primary) hypertension (principal); R51 Headache; E87.5 Hyperkalemia; E11.9 Type 2 diabetes mellitus without complications; K21.9 Gastro-esophageal reflux disease without esophagitis; G47.33 Obstructive sleep apnea (adult) (pediatric)
CPT/HCPCS: 70450; 71045; 80048; 84484; 85025; 93005; 96374; 96375; 99285; A4216; J2405

== ENCOUNTER → 2019-03-01 09:49 | Outpatient (CLI) | payer MEDICAID, SELFPAY ==
[2019-02-27 07:56] VITALS: BMI 39.9
[2019-03-01 13:36] LABS: Anion Gap 8 (5-15); BUN 42 mg/dL (7-18); BUN/Creat Ratio 17.3 RATIO (10-20); Calcium,Total 8.4 mg/dL (8.5-10.1); Chloride 118 mmol/L (98-107); Creatinine, Serum 2.43 mg/dL (0.55-1.02); EST Glomerular Filtration Rate 22 mL/min (>60); Est Glom Filt Rate - Afr Amer 27 mL/min (>60); Glucose 143 mg/dL (74-106); Potassium 6.3 mmol/L (3.5-5.1); Sodium Level 142 mmol/L (136-145)
== END ==
PROVIDERS: Family Provider Family Medicine; PCP Family Medicine; Referring Provider Family Medicine; Visit Provider Family Medicine
DX: N18.3 Chronic kidney disease, stage 3 (moderate) (principal)
CPT/HCPCS: 36415; 80048

== ENCOUNTER → 2019-03-04 10:24 | Outpatient (CLI) | payer MEDICAID, SELFPAY ==
[2019-02-27 07:56] VITALS: BMI 39.9
[2019-03-04 12:22] LABS: Anion Gap 7 (5-15); BUN 49 mg/dL (7-18); BUN/Creat Ratio 22.5 RATIO (10-20); Calcium,Total 8.5 mg/dL (8.5-10.1); Chloride 119 mmol/L (98-107); Creatinine, Serum 2.18 mg/dL (0.55-1.02); EST Glomerular Filtration Rate 25 mL/min (>60); Est Glom Filt Rate - Afr Amer 30 mL/min (>60); Glucose 140 mg/dL (74-106); Magnesium 1.5 mg/dL (1.6-2.6); Phosphorus 3.8 mg/dL (2.5-4.9); Potassium 5.5 mmol/L (3.5-5.1); Sodium Level 142 mmol/L (136-145)
[2019-03-04 12:37] LABS: Absolute Lymphocyte Count 1.67 X10^3/uL (0.83-4.51); Absolute Neutrophil Count 6.5 X10^3/uL (2.0-7.7); Basophil# 0.06 X10^3/uL; Basophil% 0.7 % (0-1); Eosinophils% 2.2 % (0-5); Hematocrit 32.9 % (37-47); Hemoglobin 9.7 g/dL (12.0-15.0); Lymphocyte # 1.67 X10^3/ul (4.0); Lymphocyte % 18.4 % (19-41); Mean Corp Hgb Conc 29.5 g/dL (32-36); Mean Corpuscular Hgb 27.9 pg (27.0-32.0); Mean Corpuscular Volume 94.5 fL (81-99); Mean Platelet Vol. 12.5 fl (6.2-12.0); Monocyte# 0.58 X10^3/uL; Monocyte% 6.4 % (0-10); NRBC Flagged by Analyzer 0 % (0-5); Neutrophil # 6.53 X10^3/uL (2.7-7.7); Platelet Count 245 K/mm3 (150-450); RBC Distribution Width CV 13.8 % (11.6-14.6); RBC Distribution Width SD 47.7 fl (35.1-43.9); Red Blood Count 3.48 M/mm3 (4.2-5.4); White Blood Count 9.1 K/mm3 (4.4-11.0)
== END ==
PROVIDERS: Family Provider Family Medicine; PCP Family Medicine; Referring Provider Family Medicine; Visit Provider Family Medicine
DX: R53.83 Other fatigue (principal); E87.5 Hyperkalemia
CPT/HCPCS: 36415; 80048; 83735; 84100; 85025

== ENCOUNTER → 2019-03-15 08:44 | Outpatient (CLI) | payer MEDICAID, SELFPAY ==
[2019-02-27 07:56] VITALS: BMI 39.9
--- NOTE | 2019-03-15 08:55 | RAD_ITS ---
STUDY: X-RAY CHEST REASON FOR EXAM: Female, 53 years old. Pain. TECHNIQUE: PA and lateral views of the chest. COMPARISON: None. FINDINGS: The lungs are clear and expanded. There is no demonstrated pleural abnormality. Normal size heart. Normal mediastinum and libby. Normal visualized pulmonary arteries. Normal visualized aortic arch and descending thoracic aorta. Normal visualized thoracic spine. Normal visualized ribs, clavicles, and shoulders. There is no demonstrated abnormality of the visualized soft tissue structures of the upper abdomen. RAD/Chest PA and Lateral IMPRESSION: Normal x-ray examination of the chest. Electronically Signed: Zohra Alonso MD at 1:32 EST , Service support ,
[2019-03-15 10:24] LABS: Absolute Lymphocyte Count 1.46 X10^3/uL (0.83-4.51); Basophil# 0.06 X10^3/uL; Basophil% 0.7 % (0-1); Eosinophil# 0.15 X10^3/uL; Eosinophils% 1.8 % (0-5); Hematocrit 33.1 % (37-47); Hemoglobin 10.3 g/dL (12.0-15.0); Lymphocyte # 1.46 X10^3/ul (4.0); Lymphocyte % 17.9 % (19-41); Mean Corp Hgb Conc 31.1 g/dL (32-36); Mean Corpuscular Volume 89.9 fL (81-99); Mean Platelet Vol. 12.5 fl (6.2-12.0); Monocyte# 0.48 X10^3/uL; Monocyte% 5.9 % (0-10); NRBC Flagged by Analyzer 0 % (0-5); Neutrophil # 5.96 X10^3/uL (2.7-7.7); Neutrophil % 73.2 % (47-70); Platelet Count 197 K/mm3 (150-450); RBC Distribution Width CV 13.9 % (11.6-14.6); RBC Distribution Width SD 46.1 fl (35.1-43.9); Red Blood Count 3.68 M/mm3 (4.2-5.4); White Blood Count 8.2 K/mm3 (4.4-11.0)
[2019-03-15 10:25] LABS: Erythrocyte Sedimentation Rate 31 mm/hr (0-30)
[2019-03-15 10:53] LABS: ALB/GLOB Ratio 0.8 RATIO (0.9-2.4); AST(SGOT) 18 U/L (15-37); Alanine Aminotransfer ALT/SGPT 17 U/L (13-56); Albumin, Serum 3.3 g/dL (3.2-5.0); Alkaline Phosphatase 102 U/L (45-117); Amylase 47 U/L (25-115); Anion Gap 6 (5-15); BUN 42 mg/dL (7-18); BUN/Creat Ratio 20.2 RATIO (10-20); CRP 3.17 mg/L (0.0-3.0); Calcium,Total 8.3 mg/dL (8.5-10.1); Chloride 112 mmol/L (98-107); Creatinine, Serum 2.08 mg/dL (0.55-1.02); EST Glomerular Filtration Rate 27 mL/min (>60); Est Glom Filt Rate - Afr Amer 32 mL/min (>60); Glucose 215 mg/dL (74-106); Lipase 250 U/L (73-393); Magnesium 1.7 mg/dL (1.6-2.6); Potassium 4.2 mmol/L (3.5-5.1); Protein, Total 7.3 g/dL (6.4-8.2); Sodium Level 139 mmol/L (136-145); Thyroid Stim Hormone (TSH) 1.05 uIU/mL (0.358-3.74)
[2019-03-17 11:30] LABS: H. Pylori Antibody (IgG) 0.37 (0.00-0.79)
== END ==
PROVIDERS: Family Provider Family Medicine; PCP Family Medicine; Referring Provider Family Medicine; Visit Provider Family Medicine
DX: E83.42 Hypomagnesemia (principal); R10.9 Unspecified abdominal pain; R11.2 Nausea with vomiting, unspecified
CPT/HCPCS: 36415; 71046; 80053; 82150; 83690; 83735; 84443; 85025; 85652; 86140; 86677

== ENCOUNTER → 2019-04-15 14:22 | Outpatient (CLI) | payer MEDICAID, SELFPAY ==
[2019-04-15 16:03] LABS: Anion Gap 4 (5-15); BUN 38 mg/dL (7-18); Calcium,Total 8.7 mg/dL (8.5-10.1); Chloride 116 mmol/L (98-107); Creatinine, Serum 2.53 mg/dL (0.55-1.02); EST Glomerular Filtration Rate 21 mL/min (>60); Est Glom Filt Rate - Afr Amer 26 mL/min (>60); Glucose 163 mg/dL (74-106); Potassium 4.9 mmol/L (3.5-5.1); Sodium Level 141 mmol/L (136-145)
== END ==
PROVIDERS: Family Provider Family Medicine; PCP Family Medicine; Referring Provider Nurse Practitioner Adult Health; Visit Provider Nurse Practitioner Adult Health
DX: E87.5 Hyperkalemia (principal)
CPT/HCPCS: 36415; 80048

== ENCOUNTER → 2019-04-18 15:23 | Outpatient (CLI) | payer MEDICAID, SELFPAY ==
[2019-04-18 18:12] LABS: Anion Gap 8 (5-15); BUN 42 mg/dL (7-18); BUN/Creat Ratio 19.5 RATIO (10-20); Calcium,Total 8.5 mg/dL (8.5-10.1); Chloride 115 mmol/L (98-107); Creatinine, Serum 2.15 mg/dL (0.55-1.02); EST Glomerular Filtration Rate 26 mL/min (>60); Est Glom Filt Rate - Afr Amer 31 mL/min (>60); Glucose 182 mg/dL (74-106); Potassium 4.5 mmol/L (3.5-5.1); Sodium Level 141 mmol/L (136-145)
== END ==
PROVIDERS: PCP Family Medicine; Referring Provider Family Medicine; Visit Provider Family Medicine
DX: N18.3 Chronic kidney disease, stage 3 (moderate) (principal)
CPT/HCPCS: 36415; 80048

== ENCOUNTER → 2019-06-27 16:39 | Outpatient (CLI) | payer MEDICAID, SELFPAY ==
[2019-06-27 17:46] LABS: Anion Gap 4 (5-15); BUN 42 mg/dL (7-18); BUN/Creat Ratio 18.7 RATIO (10-20); Calcium,Total 8.8 mg/dL (8.5-10.1); Chloride 116 mmol/L (98-107); Creatinine, Serum 2.25 mg/dL (0.55-1.02); EST Glomerular Filtration Rate 24 mL/min (>60); Est Glom Filt Rate - Afr Amer 29 mL/min (>60); Glucose 59 mg/dL (74-106); Potassium 6.2 mmol/L (3.5-5.1); Sodium Level 143 mmol/L (136-145)
== END ==
PROVIDERS: PCP Family Medicine; Referring Provider Family Medicine; Visit Provider Family Medicine
DX: N18.3 Chronic kidney disease, stage 3 (moderate) (principal)
CPT/HCPCS: 36415; 80048

== ENCOUNTER → 2019-07-01 12:31 | Outpatient (CLI) | payer MEDICAID, SELFPAY ==
[2019-07-01 14:53] LABS: Color, Urine Yellow (Yellow); Glucose, Dipstick Normal (Normal); Ketone-Dipstick Negative (Negative); Leukocyte Esterase-Dipstick 100 /ul (Negative); Nitrite-Dipstick Negative (Negative); Occult Blood-Urine 25 /ul (Negative); Protein-Dipstick 100 mg/dl (Negative); Urine Bilirubin Dipstick Negative (Negative); Urine Clarity Cloudy (Clear); Urine Urobilinogen Normal (Normal)
[2019-07-01 15:02] LABS: Anion Gap 8 (5-15); BUN 45 mg/dL (7-18); BUN/Creat Ratio 20.8 RATIO (10-20); Calcium,Total 8.3 mg/dL (8.5-10.1); Chloride 112 mmol/L (98-107); Creatinine, Serum 2.16 mg/dL (0.55-1.02); EST Glomerular Filtration Rate 25 mL/min (>60); Est Glom Filt Rate - Afr Amer 31 mL/min (>60); Glucose 72 mg/dL (74-106); Potassium 5.1 mmol/L (3.5-5.1); Sodium Level 141 mmol/L (136-145)
== END ==
PROVIDERS: Family Medicine; PCP Family Medicine; Referring Provider Family Medicine; Visit Provider Family Medicine
DX: R33.9 Retention of urine, unspecified (principal); N18.3 Chronic kidney disease, stage 3 (moderate); R34 Anuria and oliguria
CPT/HCPCS: 36415; 80048; 81002; 87077; 87086; 87088

== ENCOUNTER → 2019-08-01 15:05 | Outpatient (CLI) | payer MEDICAID, SELFPAY ==
[2019-08-01 17:49] LABS: Anion Gap 9 (5-15); BUN 43 mg/dL (7-18); BUN/Creat Ratio 17.1 RATIO (10-20); Calcium,Total 8.4 mg/dL (8.5-10.1); Chloride 115 mmol/L (98-107); Creatinine, Serum 2.51 mg/dL (0.55-1.02); EST Glomerular Filtration Rate 21 mL/min (>60); Est Glom Filt Rate - Afr Amer 26 mL/min (>60); Glucose 176 mg/dL (74-106); Potassium 4.8 mmol/L (3.5-5.1); Sodium Level 142 mmol/L (136-145)
[2019-08-05 12:07] LABS: Beef <0.10 kU/L (Class 0); Corn <0.10 kU/L (Class 0); Egg, Whole <0.10 kU/L (Class 0); Milk (Cow) <0.10 kU/L (Class 0); Peanut <0.10 kU/L (Class 0); Pork <0.10 kU/L (Class 0); Soybean <0.10 kU/L (Class 0); Wheat <0.10 kU/L (Class 0)
[2019-08-05 14:48] LABS: Chocolate <0.10 kU/L (Class 0)
== END ==
PROVIDERS: PCP Family Medicine; Referring Provider Family Medicine; Visit Provider Family Medicine
DX: E87.5 Hyperkalemia (principal); R19.7 Diarrhea, unspecified
CPT/HCPCS: 36415; 80048; 86003; 86005

== ENCOUNTER → 2019-08-13 14:46 | Outpatient (CLI) | payer MEDICAID, SELFPAY ==
[2019-08-13 17:42] LABS: Hemoglobin 9.4 g/dL (12.0-15.0); Mean Corp Hgb Conc 30.3 g/dL (32-36); Mean Corpuscular Hgb 27.3 pg (27.0-32.0); Mean Corpuscular Volume 90.1 fL (81-99); Mean Platelet Vol. 12.6 fl (6.2-12.0); Platelet Count 218 K/mm3 (150-450); RBC Distribution Width CV 14.1 % (11.6-14.6); Red Blood Count 3.44 M/mm3 (4.2-5.4); White Blood Count 9.3 K/mm3 (4.4-11.0)
[2019-08-13 18:07] LABS: ALB/GLOB Ratio 0.8 RATIO (0.9-2.4); AST(SGOT) 19 U/L (15-37); Alanine Aminotransfer ALT/SGPT 19 U/L (13-56); Albumin, Serum 3.1 g/dL (3.2-5.0); Alkaline Phosphatase 106 U/L (45-117); Anion Gap 9 (5-15); BUN 52 mg/dL (7-18); BUN/Creat Ratio 21.4 RATIO (10-20); Calcium,Total 8.4 mg/dL (8.5-10.1); Chloride 112 mmol/L (98-107); Creatinine, Serum 2.43 mg/dL (0.55-1.02); EST Glomerular Filtration Rate 22 mL/min (>60); Est Glom Filt Rate - Afr Amer 27 mL/min (>60); Glucose 125 mg/dL (74-106); Potassium 4.8 mmol/L (3.5-5.1); Protein, Total 7.1 g/dL (6.4-8.2); Sodium Level 141 mmol/L (136-145); Thyroid Stim Hormone (TSH) 1.24 uIU/mL (0.358-3.74)
== END ==
PROVIDERS: PCP Family Medicine; Visit Provider Family Medicine
DX: E11.622 Type 2 diabetes mellitus with other skin ulcer (principal); W19.XXXA Unspecified fall, initial encounter
CPT/HCPCS: 36415; 80053; 84443; 85027; 87086; 87088

== ENCOUNTER → 2019-08-19 16:55 | Outpatient (CLI) | payer MEDICAID, SELFPAY ==
--- NOTE | 2019-08-19 16:58 | RAD_ITS ---
STUDY: X-RAY - LUMBAR SPINE REASON FOR EXAM: Female, 54 years old. PAIN S/P FALLING IN SHOWER LAST NIGHT, BRUISING TO RIGHT LOWER BACK TECHNIQUE: 5 view(s) of the lumbar spine were obtained. COMPARISON: Prior study of 11/27/2018 FINDINGS: Normal lumbar lordosis. There is no substantial scoliosis. There is a normal alignment of the vertebrae. There is a transitional vertebrae of the lumbosacral junction. Normal vertebral bodies and endplates. There is narrowing of the L4-5 disc space, new from the previous study. There are bilateral degenerative facet changes at the L4-5 and L5-S1 levels. The soft tissue structures are unremarkable. RAD/L/S Spine Min 4 Views IMPRESSION: Transitional vertebrae of the lumbosacral junction. Mild narrowing of the L4-5 disc space, new in the interval. Bilateral degenerative facet changes at the L4-5 and L5-S1 levels. There is old compression deformity of T11, seen in retrospect on the previous study and unchanged in the interval. Electronically Signed: Flaco Almonte MD at 17:21 EDT , Service support ,
== END ==
PROVIDERS: PCP Family Medicine; Referring Provider Family Medicine; Visit Provider Family Medicine
DX: S20.221S Contusion of right back wall of thorax, sequela (principal)
CPT/HCPCS: 72110

== ENCOUNTER → 2019-08-22 11:39 | Outpatient (CLI) | payer MEDICAID, SELFPAY ==
[2019-08-22 13:03] LABS: Protein, Urine (Random) 138.8 mg/dL (<11.9); Protein:Creat Ratio 2009 mg/g CRE (0-200)
== END ==
LOC: POLAB3 11:40 → LABSPEC 11:41
PROVIDERS: PCP Family Medicine; Visit Provider Internal Medicine Nephrology
DX: E11.22 Type 2 diabetes mellitus with diabetic chronic kidney disease (principal); N18.9 Chronic kidney disease, unspecified
CPT/HCPCS: 82570; 84156

== ENCOUNTER → 2019-09-04 08:55 | Outpatient (CLI) | payer MEDICAID, SELFPAY ==
--- NOTE | 2019-09-04 08:59 | US_ITS ---
STUDY: RENAL ULTRASOUND - COMPLETE REASON FOR EXAM: Female, 54 years old. CKD 4 TECHNIQUE: Ultrasound evaluation of the kidneys was performed with real-time and static cosby-scale imaging. COMPARISON: None. FINDINGS: RIGHT KIDNEY: Normal location of the right kidney, which is normal in size. The right kidney measures 13.3 cm x 6.1 cm x 5.2 cm. There is a normal cortex of the right kidney. The renal cortex measures 1.8 cm. There is no right renal mass or cyst. There are no right renal calculi. There is no right hydronephrosis. DISTAL RIGHT URETER: There is non-visualization of the distal right ureter. There is no demonstrated right ureterovesical junction calculus. There is a visualized right ureteral jet. LEFT KIDNEY: Normal location of the left kidney, which is normal in size. The left kidney measures 13.9 cm x 5.4 cm x 5.7 cm. There is a normal cortex of the left kidney. The renal cortex measures 1.7 cm. There is no left renal mass or cyst. There are no left renal calculi. There is no left hydronephrosis. DISTAL LEFT URETER: There is non-visualization of the distal left ureter. There is no demonstrated left ureterovesical junction calculus. There is a visualized left ureteral jet. BLADDER: The distended urinary bladder has a volume of 251 ml. The empty urinary bladder has a volume of 77 ml. There is a normal wall thickness of the distended urinary bladder. There is no demonstrated mass within the urinary bladder. There are no demonstrated bladder calculi. US/Kidney and Bladder IMPRESSION: Normal ultrasound of the kidneys and urinary bladder. Electronically Signed: Mauro Gannon, at 15:35 EDT , Service support ,
== END ==
PROVIDERS: PCP Family Medicine; Referring Provider Internal Medicine Nephrology; Visit Provider Internal Medicine Nephrology
DX: N18.4 Chronic kidney disease, stage 4 (severe) (principal)
CPT/HCPCS: 76770

== ENCOUNTER 2019-09-11 13:30 | Outpatient (RCR) | payer MEDICAID, SELFPAY ==
--- NOTE | 2019-09-05 07:27 | HP.PTEVAL_ITS ---
Patient's Visit Information DORIS EDWARD is a 54 year old F referred to Physical Therapy by Dr. John Castillo MD with a diagnosis of Contusion of R posterior thoracic wall. Date of Evaluation: 08/28/19 Physical Therapist: Maicol Negrete DPT - Visit Plan Frequency: 2x /Week Duration: 4-6 Weeks Plan: Start with extension progression as tolerated. If symptoms continue to decrease progress with extension progression. Add in netural spine core stability exercises, hip strengthening of BLEs. May use modalities if needed. - Subjective Pt. is here today for her initial evaluation with diagnosis of chest wall contusion. Pt. reports falling at home onto the wall of her shower. Pt. is now complaining of icnreased pain at R side of lumbar thoracic spine. Pt. did have xrays showing DDD of lumbar spine. 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 Pt. reports no N/T, but has increased difficulty lifting her RLE. Pt. reprots increased difficulty with lifting her R leg, especially with getting in/out of her car. Pt. is hopeful to reduce her symptoms in order to get back to all work and recreational activities without limitations. - Pain R side of lumbar spine Pain Intensity (Out of 10): 3 Pain Intensity Range: 0, 6 - Objective POSTURE: Pt. had fwrd flexed posture. Pt. has slight increase in L lateral wt. shift. PALPATION: Pt. has increased tenderness at L2-S1 on R side erector spinea. NEURO: normal DTR and sensation of BLEs. ROM: Lumbar spine: flexion min/mod loss increase NW, exte- min loss mild decrease NW, SB min loss increase NW, rotation- min/mod loss increase NW. HS lenght- tight bilaterally, hip flexor length- tight bilaterally. MMT: LLE- ankle 5/5 throughout; knee- ext 5- /5, flexion 5-/5; hip- flexion 4+/5, abd 4/5, ext 4/5. RLE- ankle 5/5 throughout; knee- ext 4+/5, flexion 4+/5; hip- flexion 4/5, abd 4/5, ext 4/5. Core strength- poor. GAIT: Pt. walks without AD. Pt. has fwrd flexed posture, Pt. has no visible antalgic pattern, but is methodical about her movements. Decreased arm swing as well. STAIRS: Pt. is very careful on the stairs. Pt. has heavy use of railings. Pt. reports I just don't trust my legs.' - Special Tests Thoracic Sitting: Flexion - Mechanical Response: No effect Thoracic Sitting: Flexion - Symptoms During Testing: No effect Thoracic Sitting: Flexion - Symptoms After Testing: No effect Thoracic Sitting: Extension - Mechanical Response: No effect Thoracic Sitting: Extension - Symptoms During Testing: No effect Thoracic Sitting: Extension - Symptoms After Testing: No effect Thoracic Sitting: Right rotation - Mechanical Response: No effect Thoracic Sitting: Right Rotation - Symptoms During Testing: No effect Thoracic Sitting: Right Rotation - Symptoms After Testing: No effect Thoracic Sitting: Left rotation - Mechanical Response: No effect Thoracic Sitting: Left Rotation - Symptoms During Testing: No effect Thoracic Sitting: Left Rotation - Symptoms After Testing: No effect L/S Slump test left side: Negative L/S Slump test right side: Negative Lumbar Standing: Flexion - Mechanical Response: No effect Lumbar Standing: Flexion - Symptoms During Testing: Increases Lumbar Standing: Flexion - Symptoms After Testing: No worse Lumbar Standing: Extension - Mechanical Response: No effect Lumbar Standing: Extension - Symptoms During Testing: Decreases Lumbar Standing: Extension - Symptoms After Testing: No better Lumbar Standing: Right Side Glides - Mechanical Response: No effect Lumbar Standing: Right Side [place] - Symptoms During Testing: No effect Lumbar Standing: Right Side [place] - Symptoms After Testing: Better Lumbar Standing: Left Side [place] - Mechanical Response: No effect Lumbar Standing: Left Side [place] - Symptoms During Testing: No effect Lumbar Standing: Left Side [place] - Symptoms After Testing: No effect Lumbar Lying: Flexion - Mechanical Response: No effect Lumbar Lying: Flexion - Symptoms During Testing: No effect Lumbar Lying: Flexion - Symptoms After Testing: No effect Lumbar Lying: Extension - Mechanical Response: No effect Lumbar Lying: Extension - Symptoms During Testing: Decreases Lumbar Lying: Extension - Symptoms After Testing: No better R Hip Scour: Negative R Hip BARBRA - Intraarticular Pathology: Negative R Hip FADDIR - Labrum: Negative R Hip [place] - IT Band: Negative - Goals Goal 1:: LTG: Pt. to be I with HEP for core and BLE strengthening. Goal Time Frame: 4-6 Weeks Goal 2:: STG: Pt. to sleep throughout the night without increase in symptoms. Goal Time Frame: 2-4 Weeks Goal 3:: LTG: Pt. to have increased core and BLE strength increase by 1/2 grade of all effected musculature. Goal Time Frame: 4-6 Weeks Goal 4:: STG: Pt. to walk unlimited distances without increase in symptoms. Goal Time Frame: 2-4 Weeks Goal 5:: LTG: Pt. to have increased lumbar spine ROM by 25% in all directions without increase in symptoms. Goal Time Frame: 4-6 Weeks Goal 6:: LTG: Pt. to complete all of her work duties without increase in symptoms. Goal Time Frame: 4-6 Weeks - Rehabilitation Potential Physical Therapy Diagnosis: Pt. has signs and symptoms consistent with lumbar spine pain, on the right side. Pt. does not have any radicular signs down her legs, but does report RLE weakness and difficulty getting both legs into her car, difficulty lifting. Pt. does have marked weakness in both legs and limited core stability. Pt. would benefit from PT in order to decrease her symptoms, increased lumbar ROM, and progress strength in BLEs and her core. Rehabilitation Potential: Good - Anticipated Interventions Patient/Client Instruction: Educate patient on: Condition, Plan of Care, Risk Factors, Benefits of Fitness Program For the Purpose of:: To improve decision making, To facilitate caregiver knowledge, To improve self management, To prevent re-injury, To improve ability to perform tasks related to life management, To improve tolerance to ADL's Therapeutic Exercise to Include: Strength training, Power training, Endurance training, Balance training, Postural training, Flexibilty training, Gait and locomotor training, Passive ROM, Active ROM, Dynamic Lumbar Stabilization, [place] Exercises For the Purpose of:: To decrease pain, To decrease swelling/inflammation, To increase ROM, To improve nutrient delivery to tissue, To increase oxygenation perfusion, To improve muscle performance and motor function, To improve ability to perform ADL's, To improve ability of physical actions for home/community/work/leisure, To improve gait and locomotor functions, To improve health of tissue, To decrease soft tissue restriction, To increase flexibility/ROM Manual Therapy Techniques to Include: Mobilization, Functional dry needling, Soft tissue mobilization For the Purpose of:: To decrease pain, To increase ROM, To improve nutrient delivery to tissue, To increase oxygenation perfusion, To improve muscle performance and motor function IF ES: Yes Cryotherapy (ice pack, ice massage): Yes Thermo therapy (hot pack): Yes Ultrasound (thermal/non thermal): Yes For the Purpose of:: To decrease pain, To increase ROM, To improve nutrient delivery to tissue, To increase oxygenation perfusion, To improve muscle performance and motor function, To improve ability to perform ADL's Thank you for the opportunity to evaluate your patient. For Medicare and Medicare HMO plans, please review the plan of care and approve it. It will need to be FAXED BACK to us at [phone] for Medicare purposes. For Medicare only, by signing this I certify the plan of care. Please let me know if there are questions or concerns regarding this plan of care. Physician Signature: Date:
== END 2019-09-11 19:00 ==
LOC: PT 13:30
PROVIDERS: PCP Family Medicine; Referring Provider Family Medicine; Visit Provider Family Medicine
DX: S20.221D Contusion of right back wall of thorax, subsequent encounter (principal)
CPT/HCPCS: 97110; 97161

== ENCOUNTER → 2019-09-19 12:50 | Outpatient (CLI) | payer MEDICAID, SELFPAY ==
[2019-09-19 13:26] LABS: Mean Corpuscular Hgb 27.5 pg (27.0-32.0); Mean Corpuscular Volume 91.7 fL (81-99); Mean Platelet Vol. 11.1 fl (6.2-12.0); Platelet Count 205 K/mm3 (150-450); RBC Distribution Width CV 14.6 % (11.6-14.6); Red Blood Count 3.27 M/mm3 (4.2-5.4); White Blood Count 7.3 K/mm3 (4.4-11.0)
[2019-09-19 13:48] LABS: Vitamin D,25 Hydroxy 19.6 ng/mL
[2019-09-19 13:49] LABS: BUN 57 mg/dL (7-18); BUN/Creat Ratio 22.8 RATIO (10-20); Chloride 113 mmol/L (98-107); EST Glomerular Filtration Rate 21 mL/min (>60); Est Glom Filt Rate - Afr Amer 26 mL/min (>60); Ferritin 100 ng/mL (8-252); Glucose 178 mg/dL (74-106); Iron 53 ug/dL (50-170); Iron Binding Capacity,Total 256 ug/dL (250-450); PERCENT IRON SATURATION 20.7 % (15.0-55.0); Phosphorus 4.1 mg/dL (2.5-4.9); Potassium 4.7 mmol/L (3.5-5.1); Sodium Level 140 mmol/L (136-145)
== END ==
PROVIDERS: PCP Family Medicine; Visit Provider Internal Medicine Nephrology
DX: N18.4 Chronic kidney disease, stage 4 (severe) (principal); D63.1 Anemia in chronic kidney disease
CPT/HCPCS: 36415; 80069; 82306; 82728; 83540; 83550; 83970; 85027

== ENCOUNTER → 2019-11-19 11:40 | Outpatient (CLI) | payer MEDICAID, SELFPAY ==
[2019-11-19 12:33] LABS: Hematocrit 32.3 % (37-47); Hemoglobin 9.8 g/dL (12.0-15.0); Mean Corp Hgb Conc 30.3 g/dL (32-36); Mean Corpuscular Hgb 27.7 pg (27.0-32.0); Mean Corpuscular Volume 91.2 fL (81-99); Mean Platelet Vol. 11.8 fl (6.2-12.0); Platelet Count 203 K/mm3 (150-450); RBC Distribution Width CV 13.9 % (11.6-14.6); RBC Distribution Width SD 46.3 fl (35.1-43.9); Red Blood Count 3.54 M/mm3 (4.2-5.4); White Blood Count 8.2 K/mm3 (4.4-11.0)
[2019-11-19 13:18] LABS: Albumin, Serum 2.9 g/dL (3.2-5.0); BUN 51 mg/dL (7-18); BUN/Creat Ratio 20.1 RATIO (10-20); Calcium,Total 8.4 mg/dL (8.5-10.1); Chloride 113 mmol/L (98-107); Creatinine, Serum 2.54 mg/dL (0.55-1.02); EST Glomerular Filtration Rate 21 mL/min (>60); Est Glom Filt Rate - Afr Amer 25 mL/min (>60); Ferritin 114 ng/mL (8-252); Glucose 118 mg/dL (74-106); Iron 68 ug/dL (50-170); Iron Binding Capacity,Total 429 ug/dL (250-450); PERCENT IRON SATURATION 15.9 % (15.0-55.0); PTHIN 238.8 pg/mL (18.4-80.1); Phosphorus 4.1 mg/dL (2.5-4.9); Potassium 4.4 mmol/L (3.5-5.1); Sodium Level 140 mmol/L (136-145)
== END ==
PROVIDERS: PCP Family Medicine; Referring Provider Internal Medicine Nephrology; Visit Provider Internal Medicine Nephrology
DX: N18.4 Chronic kidney disease, stage 4 (severe) (principal); E11.22 Type 2 diabetes mellitus with diabetic chronic kidney disease; D50.9 Iron deficiency anemia, unspecified; N25.81 Secondary hyperparathyroidism of renal origin
CPT/HCPCS: 36415; 80069; 82570; 82728; 83540; 83550; 83970; 84156; 85027

== ENCOUNTER → 2019-12-21 07:46 | Outpatient (CLI) | payer MEDICAID, SELFPAY ==
--- NOTE | 2019-12-21 08:02 | MRI_ITS ---
STUDY: MRI LUMBAR SPINE WITHOUT CONTRAST REASON FOR EXAM: Female, 54 years old. back pain, right leg pain more than left TECHNIQUE: Standardized fat and water weighted pulse sequences were obtained in the sagittal and axial planes. COMPARISON: 08/19/2019 plain film FINDINGS: Note: There are demonstrated 4 nonrib-bearing lumbar vertebrae with S1 sacralization. T12-L1: Normal endplates. Normal disc height, hydration and morphology. Normal bilateral facet joints. Normal central canal and bilateral lateral recesses. Normal bilateral intervertebral neural foramina. Normal lumbar lordosis. There is no substantial scoliosis. Normal conus medullaris that terminates at the L1/2 level. L1-2: Normal endplates. Normal disc height, hydration and morphology. Normal bilateral facet joints. Normal central canal and bilateral lateral recesses. Normal bilateral intervertebral neural foramina. L2-3: Normal endplates. Normal disc height, hydration and morphology. Normal bilateral facet joints. Normal central canal and bilateral lateral recesses. Normal bilateral intervertebral neural foramina. L3-4: Normal endplates. Normal disc height, hydration and morphology. Normal bilateral facet joints. Normal central canal and bilateral lateral recesses. Normal bilateral intervertebral neural foramina. L4-5: Disc desiccation and mild broad-based disc bulge at this level is present there is compounding facet arthropathy resulting in mild bilateral foraminal narrowing. L5-S1: There is demonstrated L5 sacralization with assimilation of L5 within the sacrum. 4 nonrib-bearing vertebrae are noted on plain film. Normal visualized sacral ala. Normal visualized paraspinous soft tissue structures. MRI/Spine Lumbar (Routine) IMPRESSION: 1. Sacralization of L5 as above. 2. L4/5 broad-based disc bulge and mild bilateral foraminal narrowing. Electronically Signed: Oziel Castro DO at 10:37 EDT , Service support ,
== END ==
PROVIDERS: PCP Family Medicine; Referring Provider Family Medicine; Visit Provider Family Medicine
DX: M54.5 Low back pain (principal)
CPT/HCPCS: 72148

== ENCOUNTER → 2020-01-08 07:19 | Outpatient (CLI) | payer MEDICAID, SELFPAY ==
[2020-01-08 08:10] LABS: Albumin, Serum 2.8 g/dL (3.2-5.0); BUN 46 mg/dL (7-18); BUN/Creat Ratio 16.9 RATIO (10-20); Calcium,Total 8.4 mg/dL (8.5-10.1); Chloride 123 mmol/L (98-107); Creatinine, Serum 2.72 mg/dL (0.55-1.02); EST Glomerular Filtration Rate 19 mL/min (>60); Est Glom Filt Rate - Afr Amer 23 mL/min (>60); Glucose 133 mg/dL (74-106); Phosphorus 3.6 mg/dL (2.5-4.9); Potassium 5.1 mmol/L (3.5-5.1); Sodium Level 147 mmol/L (136-145)
[2020-01-08 08:25] LABS: PTHIN 197.4 pg/mL (18.4-80.1)
== END ==
PROVIDERS: PCP Family Medicine; Referring Provider Internal Medicine Nephrology; Visit Provider Internal Medicine Nephrology
DX: N18.4 Chronic kidney disease, stage 4 (severe) (principal); N25.81 Secondary hyperparathyroidism of renal origin; E55.9 Vitamin D deficiency, unspecified
CPT/HCPCS: 36415; 80069; 83970

== ENCOUNTER → 2020-01-09 13:40 | Outpatient (CLI) | payer MEDICAID, SELFPAY ==
--- NOTE | 2020-01-09 13:44 | MRI_ITS ---
HISTORY: Thoracic back pain, into legs, no known injury TECHNIQUE: Routine MRI of the thoracic spine was performed without IV contrast. COMPARISON: Thoracic spine radiographs 09/25/2018 FINDINGS: Number of images including paperwork: 164 ALIGNMENT: Unremarkable. VERTEBRAL BODIES: Mild to moderate anterior wedging at T11 with minimal retropulsion, unchanged. No acute fracture or suspicious bone lesion. INTERVERTEBRAL DISCS: Mild multilevel disc space narrowing and disc desiccation. No significant posterior disc bulge or protrusion. SPINAL CANAL AND FORAMINA: No critical canal stenosis. SPINAL CORD: Unremarkable. MRI/Spine Thoracic (Routine) IMPRESSION: No acute findings. Chronic T11 compression deformity. Mild multilevel thoracic spondylosis. at [id number] Reported and signed by: Cuca Spencer MD Electronically Signed: Cuca Spencer MD at 4:59 EDT Tel , Service support ,
== END ==
PROVIDERS: PCP Family Medicine; Referring Provider Family Medicine; Visit Provider Family Medicine
DX: M54.6 Pain in thoracic spine (principal)
CPT/HCPCS: 72146

== ENCOUNTER 2020-01-13 22:34 | Emergency (ER) | payer MEDICAID, SELFPAY ==
[2020-01-13 22:35] VITALS: BP 194/111; PULSE 95; RESP 20; TEMP 36.3; O2SAT 98; BMI 38.4
[2020-01-13 22:56] LABS: Absolute Lymphocyte Count 2.17 X10^3/uL (0.83-4.51); Absolute Neutrophil Count 4.9 X10^3/uL (2.0-7.7); Basophil# 0.05 X10^3/uL; Basophil% 0.6 % (0-1); Eosinophil# 0.21 X10^3/uL; Eosinophils% 2.6 % (0-5); Hematocrit 30.6 % (37-47); Hemoglobin 9.4 g/dL (12.0-15.0); Lymphocyte # 2.17 X10^3/ul (4.0); Mean Corp Hgb Conc 30.7 g/dL (32-36); Mean Corpuscular Hgb 27.9 pg (27.0-32.0); Mean Corpuscular Volume 90.8 fL (81-99); Mean Platelet Vol. 11.4 fl (6.2-12.0); Monocyte# 0.64 X10^3/uL; NRBC Flagged by Analyzer 0 % (0-5); Neutrophil # 4.94 X10^3/uL (2.7-7.7); Neutrophil % 61.6 % (47-70); Platelet Count 197 K/mm3 (150-450); RBC Distribution Width CV 13.7 % (11.6-14.6); RBC Distribution Width SD 45.8 fl (35.1-43.9); Red Blood Count 3.37 M/mm3 (4.2-5.4)
[2020-01-13] MEDS: proCHLORPERazine 10 MG/2 ML Vial IV (22:59)
[2020-01-13] MEDS: DiphenhydrAMINE 50 MG/ML Syringe 25 MG IV (22:59)
[2020-01-13 23:05] VITALS: BP 216/107
[2020-01-13 23:09] LABS: Anion Gap 5 (5-15); BUN 50 mg/dL (7-18); BUN/Creat Ratio 14.9 RATIO (10-20); Calcium,Total 8.4 mg/dL (8.5-10.1); Chloride 119 mmol/L (98-107); Creatinine, Serum 3.36 mg/dL (0.55-1.02); EST Glomerular Filtration Rate 15 mL/min (>60); Est Glom Filt Rate - Afr Amer 18 mL/min (>60); Estimated Creatinine Clearance 18.13 ml/min; Glucose 95 mg/dL (74-106); Potassium 5.3 mmol/L (3.5-5.1); Sodium Level 145 mmol/L (136-145)
[2020-01-13 23:19] VITALS: BP 193/93; PULSE 86; RESP 14; O2SAT 100
[2020-01-13] MEDS: Metoprolol Tartrate 5 MG/5 ML Vial IV (23:19)
[2020-01-13 23:33] VITALS: BP 199/89; PULSE 78; RESP 14; O2SAT 98
[2020-01-13 23:44] VITALS: BP 183/86
[2020-01-14] MEDS: HYDROcodone Bitartrate/Apap 5/325 Tablet PO (00:01)
[2020-01-14 00:05] VITALS: BP 152/61; PULSE 83; RESP 16; O2SAT 97
--- NOTE | 2020-01-14 00:35 | ED.DCSUM_ITS ---
History of Present Illness Chief Complaint: Headache Narrative: Patient presenting for evaluation secondary to headache. Patient tells me that she has a history of chronic kidney disease, and typically will get these headaches when her sodium is too low or her potassium is too high. She states that since yesterday she has had a gradual onset of a generalized throbbing headache associated with some mild photophobia no nausea no numbness or weakness or visual changes. Patient states that she has not been sick recently such as fever cough diarrhea abdominal pain skin rashes. Patient states that she is tried [id number] remedies at home which have not really alleviated this. Patient is noted to be hypertensive, but does tell me that she took her blood pressure medications today. She denies any presence of chest pain. Past Medical History - Allergies and Home Meds Allergies/Adverse Reactions: Allergies Latex, Natural Rubber Allergy (Verified 02/27/19 07:59) Rash Penicillins Allergy (Verified 02/27/19 07:59) Swelling lactose Adverse Reaction (Verified 02/27/19 07:59) Diarrhea Primary Care Physician: John Castillo MD [Primary Care Provider] - Prior records reviewed: Yes Past Medical History: - - Chronic kidney disease Surgical History: hysterectomy, - - 2 c/s Smoking Status: Never smoker Alcohol: None Drugs: None - Family History Sibling Family History: Family History (Last Reviewed 08/08/18 @ 12:58 by Ana Bernstein) Mother Diabetes Heart disease Hypertension Father Diabetes Brother Diabetes Family History: Reports: Diabetes, Heart Disease, Hypertension Paternal Family History: Family History (Last Reviewed 08/08/18 @ 12:58 by Ana Bernstein) Mother Diabetes Heart disease Hypertension Father Diabetes Brother Diabetes Family History: Reports: Diabetes, Heart Disease, Hypertension Maternal Family History: Family History (Last Reviewed 08/08/18 @ 12:58 by Ana Bernstein) Mother Diabetes Heart disease Hypertension Father Diabetes Brother Diabetes Family History: Reports: Diabetes, Hypertension, - - Obesity Review of Systems All systems negative except as indicated General: Denies: Chills, Fever, Sweats Eyes: Denies: Visual changes - bilaterally, Diplopia ENT: Denies: Rhinorrhea, Sore throat Cardiovascular: Denies: Chest pain, Palpitations Respiratory: Denies: Dyspnea, Cough, Dyspnea on exertion Gastrointestinal: Reports: Nausea Genitourinary: Denies: Dysuria, Hematuria, Frequency Musculoskeletal: Denies: Back pain, Extremity Pain Skin: Denies: Rash, Wounds Neurological: Reports: Headache Physical Exam Vital Signs/Narrative: Vital Signs Temp Pulse Resp BP Pulse Ox 01/14/20 00:05 83 16 152/61 H 97 01/13/20 23:44 183/86 H 01/13/20 23:33 78 14 199/89 H 98 01/13/20 23:19 86 14 193/93 H 100 01/13/20 23:05 216/107 H 01/13/20 22:35 97.4 F L 95 20 H 194/111 H 98 Inital Vital Signs reviewed: Yes General: Well nourished, Well developed Head: NC, AT. Negative for: Temporary Artery Tenderness Eyes: Perrl, EOMI ENT: Moist mucous membranes, No rhinorrhea Neck: Supple, No Lymphadenopathy, No JVD, Nontender, No Meningismus Cardiovascular: Regular rate, Regular rhythm, No murmurs Respiratory: No distress, CTA bilaterally, Chest nontender Abdomen: Soft, Nontender, Nondistended, Normal bowel sounds Back: Nontender, Normal Inspection Extremities: Nontender, No edema Skin: Normal color, No rash Neuro: Alert, Oriented x3, Cranial nerves II-XII grossly intact, Normal Strength, Normal Sensation, Normal Gait Diagnostic/Tx/Re-eval Laboratory Data 01/13/20 01/13/20 22:50 22:50 WBC 8.0 RBC 3.37 L Hgb 9.4 L Hct 30.6 L MCV 90.8 MCH 27.9 MCHC 30.7 L RDW Std Deviation 45.8 H RDW Coeff of Frank 13.7 Plt Count 197 MPV 11.4 Immature Gran % (Auto) 0.200 Neut % (Auto) 61.6 Lymph % (Auto) 27.0 [place] % (Auto) 8.0 Eos % (Auto) 2.6 Baso % (Auto) 0.6 Absolute Neuts (auto) 4.9 Absolute Lymphs (auto) 2.17 Nucleated RBC % 0 Sodium 145 Potassium 5.3 H Chloride 119 H Carbon Dioxide 21.0 Anion Gap 5 BUN 50 H Creatinine 3.36 H Estim Creat Clear Calc 18.13 Est GFR (MDRD) Af Amer 18 L Est GFR (MDRD) Non-Af 15 L BUN/Creatinine Ratio 14.9 Glucose 95 Calcium 8.4 L - Medical Decision Making Patient presented secondary to headache. She was hypertensive. Patient was initially given Compazine and Benadryl as well as fluids. She had modest improvement if that. Patient CBC demonstrates chronic anemia, patient does have very mild hyperkalemia but not to the point where I think that this would cause her to have symptomatology. Patient's creatinine appears to be creeping up, it is 3.3 today which is modestly higher than her most recent reading, but is also the highest reading she has had. Patient continued to have pain she was given a dose of [place] in the emergency department. This was found to help her pain. Patient was also given a dose of Lopressor with some improvement of her blood pressure. Patient does not seem to have evidence of hypertensive emergency at this point. She has improvement of her headache. She has modest DEN, but she is already under the care of nephrology for this. I do not really feel that she requires admission she was given a gentle fluid bolus. Patient was recommended that she needs to follow-up acutely with nephrology. She feels comfortable with this disposition she understands signs and symptoms which to return. Patient was discharged in stable condition. ED Disposition - Plan for ED Patient: Disposition: Home or Assisted Living Diagnosis: Hypertension, Headache, DEN (acute kidney injury), Chronic kidney disease Instructions: ED Headache Unspecified Referrals: Lilia Hook DO [STAFF PHYSICIAN] - As soon as possible
[2020-01-14 00:48] VITALS: BP 157/97; PULSE 86; RESP 16; O2SAT 98
== END 2020-01-14 00:50 | disposition home or self-care (01) ==
PROVIDERS: Emergency Provider Emergency Medicine; PCP Family Medicine
DX: I12.9 Hypertensive chronic kidney disease with stage 1 through stage 4 chronic kidney disease, or unspecified chronic kidney disease (principal); R51.9 Headache, unspecified; N17.9 Acute kidney failure, unspecified; N18.9 Chronic kidney disease, unspecified; Z82.49 Family history of ischemic heart disease and other diseases of the circulatory system; Z88.0 Allergy status to penicillin; Z90.710 Acquired absence of both cervix and uterus; Z91.040 Latex allergy status
CPT/HCPCS: 80048; 85025; 96361; 96374; 96375; 99281; 99284; J7040; A4216

== ENCOUNTER → 2020-01-30 16:02 | Outpatient (CLI) | payer MEDICAID, SELFPAY ==
[2020-01-13 22:35] VITALS: BMI 38.4
[2020-01-30 17:48] LABS: Absolute Neutrophil Count 9.3 X10^3/uL (2.0-7.7); Basophil# 0.07 X10^3/uL; Basophil% 0.6 % (0-1); Eosinophil# 0.15 X10^3/uL; Eosinophils% 1.2 % (0-5); Hematocrit 30.9 % (37-47); Hemoglobin 9.2 g/dL (12.0-15.0); Lymphocyte % 13.7 % (19-41); Mean Corp Hgb Conc 29.8 g/dL (32-36); Mean Corpuscular Hgb 27.7 pg (27.0-32.0); Mean Corpuscular Volume 93.1 fL (81-99); Mean Platelet Vol. 12.4 fl (6.2-12.0); Monocyte# 1.07 X10^3/uL; Monocyte% 8.6 % (0-10); NRBC Flagged by Analyzer 0 % (0-5); Neutrophil # 9.33 X10^3/uL (2.7-7.7); Neutrophil % 75.3 % (47-70); Platelet Count 229 K/mm3 (150-450); RBC Distribution Width CV 13.5 % (11.6-14.6); RBC Distribution Width SD 45.8 fl (35.1-43.9); Red Blood Count 3.32 M/mm3 (4.2-5.4); White Blood Count 12.4 K/mm3 (4.4-11.0)
[2020-01-30 18:27] LABS: Erythrocyte Sedimentation Rate 76 mm/hr (0-30)
== END ==
PROVIDERS: PCP Family Medicine; Referring Provider Family Medicine; Visit Provider Family Medicine
DX: L03.119 Cellulitis of unspecified part of limb (principal)
CPT/HCPCS: 36415; 85025; 85652; 86140

== ENCOUNTER → 2020-02-03 09:49 | Outpatient (CLI) | payer MEDICAID, SELFPAY ==
[2020-01-13 22:35] VITALS: BMI 38.4
--- NOTE | 2020-02-03 09:52 | VDLE_ITS ---
Reason For Study: Rt lower leg pain RIGHT GSV is normal. CFV is compressible, spontaneous, phasic, competent and demonstrates normal augmentation. FV is compressible, spontaneous, phasic, competent and demonstrates normal augmentation. POP V is compressible, spontaneous, phasic, competent and demonstrates normal augmentation. T/P Trunk is compressible. PTV is compressible. RT PerV is compressible. Procedure This is a venous duplex using B-mode, color flow and spectral Doppler. Exam performed in department. A preliminary report was called and/or faxed to [facility]. Interpretation Summary Deep veins of the right lower extremity are patent and compressible segmentally. There is no evidence of right lower extremity deep vein thrombosis. Valvular competence appears intact within the proximal deep venous system on the right . The right great saphenous vein appears patent and compressible segmentally. Ordering Physician: Fatemeh Woodruff Referring Physician: Osmin Castillo MD Performed By: Alma Delia Pennington RVT
== END ==
PROVIDERS: PCP Family Medicine; Referring Provider Podiatrist Foot & Ankle Surgery; Visit Provider Podiatrist Foot & Ankle Surgery
DX: M79.661 Pain in right lower leg (principal); R60.0 Localized edema
CPT/HCPCS: 93971

== ENCOUNTER → 2020-02-04 14:40 | Outpatient (CLI) | payer MEDICAID, SELFPAY ==
[2020-01-13 22:35] VITALS: BMI 38.4
[2020-02-04 17:30] LABS: Absolute Lymphocyte Count 1.89 X10^3/uL (0.83-4.51); Absolute Neutrophil Count 8.4 X10^3/uL (2.0-7.7); Basophil# 0.05 X10^3/uL; Basophil% 0.4 % (0-1); Eosinophil# 0.18 X10^3/uL; Eosinophils% 1.6 % (0-5); Hematocrit 30.3 % (37-47); Lymphocyte # 1.89 X10^3/ul (4.0); Lymphocyte % 16.8 % (19-41); Mean Corp Hgb Conc 29.7 g/dL (32-36); Mean Corpuscular Hgb 27.7 pg (27.0-32.0); Mean Corpuscular Volume 93.2 fL (81-99); Mean Platelet Vol. 11.4 fl (6.2-12.0); Monocyte# 0.69 X10^3/uL; Monocyte% 6.1 % (0-10); NRBC Flagged by Analyzer 0 % (0-5); Neutrophil # 8.35 X10^3/uL (2.7-7.7); Neutrophil % 74.2 % (47-70); Platelet Count 307 K/mm3 (150-450); RBC Distribution Width CV 13.5 % (11.6-14.6); RBC Distribution Width SD 45.8 fl (35.1-43.9); Red Blood Count 3.25 M/mm3 (4.2-5.4); White Blood Count 11.3 K/mm3 (4.4-11.0)
== END ==
PROVIDERS: PCP Family Medicine; Referring Provider Family Medicine; Visit Provider Family Medicine
DX: L03.119 Cellulitis of unspecified part of limb (principal)
CPT/HCPCS: 36415; 85025; 86140; 86141

== ENCOUNTER → 2020-02-05 14:01 | Outpatient (CLI) | payer MEDICAID, SELFPAY ==
[2020-01-13 22:35] VITALS: BMI 38.4
[2020-02-05 15:34] LABS: Absolute Lymphocyte Count 1.98 X10^3/uL (0.83-4.51); Absolute Neutrophil Count 8.1 X10^3/uL (2.0-7.7); Basophil# 0.06 X10^3/uL; Basophil% 0.5 % (0-1); Eosinophil# 0.22 X10^3/uL; Hematocrit 30.8 % (37-47); Hemoglobin 9.1 g/dL (12.0-15.0); Lymphocyte # 1.98 X10^3/ul (4.0); Lymphocyte % 17.8 % (19-41); Mean Corp Hgb Conc 29.5 g/dL (32-36); Mean Corpuscular Hgb 27.2 pg (27.0-32.0); Mean Corpuscular Volume 92.2 fL (81-99); Mean Platelet Vol. 11.3 fl (6.2-12.0); Monocyte# 0.68 X10^3/uL; Monocyte% 6.1 % (0-10); NRBC Flagged by Analyzer 0 % (0-5); Neutrophil # 8.11 X10^3/uL (2.7-7.7); Platelet Count 324 K/mm3 (150-450); RBC Distribution Width CV 13.5 % (11.6-14.6); RBC Distribution Width SD 46.1 fl (35.1-43.9); Red Blood Count 3.34 M/mm3 (4.2-5.4); White Blood Count 11.1 K/mm3 (4.4-11.0)
== END ==
PROVIDERS: PCP Family Medicine; Referring Provider Family Medicine; Visit Provider Family Medicine
DX: L03.119 Cellulitis of unspecified part of limb (principal)
CPT/HCPCS: 36415; 85025; 86140

== ENCOUNTER → 2020-02-12 10:59 | Outpatient (CLI) | payer MEDICAID, SELFPAY ==
[2020-01-13 22:35] VITALS: BMI 38.4
[2020-02-12 12:21] LABS: Absolute Lymphocyte Count 1.58 X10^3/uL (0.83-4.51); Absolute Neutrophil Count 8.1 X10^3/uL (2.0-7.7); Basophil# 0.07 X10^3/uL; Basophil% 0.7 % (0-1); Eosinophils% 1.9 % (0-5); Hemoglobin 9.6 g/dL (12.0-15.0); Lymphocyte # 1.58 X10^3/ul (4.0); Lymphocyte % 14.9 % (19-41); Mean Corpuscular Hgb 27.9 pg (27.0-32.0); Monocyte# 0.64 X10^3/uL; NRBC Flagged by Analyzer 0 % (0-5); Neutrophil # 8.08 X10^3/uL (2.7-7.7); Neutrophil % 75.9 % (47-70); Platelet Count 326 K/mm3 (150-450); RBC Distribution Width CV 13.7 % (11.6-14.6); RBC Distribution Width SD 46.5 fl (35.1-43.9); Red Blood Count 3.44 M/mm3 (4.2-5.4); White Blood Count 10.6 K/mm3 (4.4-11.0)
[2020-02-12 13:04] LABS: ALB/GLOB Ratio 0.6 RATIO (0.9-2.4); AST(SGOT) 13 U/L (15-37); Alanine Aminotransfer ALT/SGPT 13 U/L (13-56); Albumin, Serum 2.6 g/dL (3.2-5.0); Alkaline Phosphatase 88 U/L (45-117); Anion Gap 7 (5-15); BUN 52 mg/dL (7-18); BUN/Creat Ratio 17.1 RATIO (10-20); Calcium,Total 8.8 mg/dL (8.5-10.1); Chloride 115 mmol/L (98-107); Creatinine, Serum 3.04 mg/dL (0.55-1.02); EST Glomerular Filtration Rate 17 mL/min (>60); Est Glom Filt Rate - Afr Amer 21 mL/min (>60); Globulin 4.6 g/dL (2.2-4.2); Glucose 94 mg/dL (74-106); Potassium 4.5 mmol/L (3.5-5.1); Protein, Total 7.2 g/dL (6.4-8.2); Sodium Level 143 mmol/L (136-145)
== END ==
PROVIDERS: PCP Family Medicine; Referring Provider Family Medicine; Visit Provider Family Medicine
DX: Z20.828 Contact with and (suspected) exposure to other viral communicable diseases (principal); R11.0 Nausea; L03.119 Cellulitis of unspecified part of limb
CPT/HCPCS: 36415; 80053; 85025; 86140; 87635; U0003

== ENCOUNTER → 2020-02-26 08:12 | Outpatient (CLI) | payer MEDICAID, SELFPAY ==
[2020-02-26 09:13] LABS: Hematocrit 30.4 % (37-47); Mean Corp Hgb Conc 29.6 g/dL (32-36); Mean Corpuscular Hgb 27.7 pg (27.0-32.0); Mean Corpuscular Volume 93.5 fL (81-99); Mean Platelet Vol. 11.3 fl (6.2-12.0); Platelet Count 270 K/mm3 (150-450); RBC Distribution Width CV 14.5 % (11.6-14.6); RBC Distribution Width SD 49.7 fl (35.1-43.9); Red Blood Count 3.25 M/mm3 (4.2-5.4); White Blood Count 8.1 K/mm3 (4.4-11.0)
[2020-02-26 09:34] LABS: Albumin, Serum 2.7 g/dL (3.2-5.0); BUN 49 mg/dL (7-18); BUN/Creat Ratio 16.5 RATIO (10-20); Calcium,Total 7.9 mg/dL (8.5-10.1); Chloride 115 mmol/L (98-107); Creatinine, Serum 2.97 mg/dL (0.55-1.02); EST Glomerular Filtration Rate 18 mL/min (>60); Est Glom Filt Rate - Afr Amer 21 mL/min (>60); Glucose 155 mg/dL (74-106); Phosphorus 4.9 mg/dL (2.5-4.9); Sodium Level 142 mmol/L (136-145)
[2020-02-26 10:32] LABS: 24HR. UA Prot. Total Volume 1500 mL; Urine Protein (24 Hour) 88.2 mg/dL (<11.9)
[2020-02-26 10:37] LABS: Creat.Clear Total Volume 1500 mL; Creatinine Clearance 27 ml/min (100-200); Creatinine Urine 77.2 mg/dL (NO RANGE EST.); EST Glomerular Filtration Rate 18 mL/min (>60); Est Glom Filt Rate - Afr Amer 21 mL/min (>60)
[2020-02-28 14:36] LABS: Vitamin D,25 Hydroxy 15.5 ng/mL
== END ==
PROVIDERS: PCP Family Medicine; Referring Provider Internal Medicine Nephrology; Visit Provider Internal Medicine Nephrology
DX: N18.4 Chronic kidney disease, stage 4 (severe) (principal); N25.81 Secondary hyperparathyroidism of renal origin; E55.9 Vitamin D deficiency, unspecified
CPT/HCPCS: 36415; 80069; 81050; 82306; 82575; 84156; 85027; 86140

== ENCOUNTER → 2020-03-05 09:52 | Outpatient (CLI) | payer MEDICAID, SELFPAY ==
[2020-03-05 12:33] LABS: Anion Gap 6 (5-15); BUN 50 mg/dL (7-18); BUN/Creat Ratio 15.7 RATIO (10-20); CRP 6.92 mg/L (0.0-3.0); Calcium,Total 8.4 mg/dL (8.5-10.1); Chloride 115 mmol/L (98-107); Creatinine, Serum 3.19 mg/dL (0.55-1.02); EST Glomerular Filtration Rate 16 mL/min (>60); Est Glom Filt Rate - Afr Amer 20 mL/min (>60); Glucose 133 mg/dL (74-106); Potassium 4.1 mmol/L (3.5-5.1); Sodium Level 142 mmol/L (136-145)
== END ==
PROVIDERS: PCP Family Medicine; Visit Provider Family Medicine
DX: N18.30 Chronic kidney disease, stage 3 unspecified (principal); L03.119 Cellulitis of unspecified part of limb
CPT/HCPCS: 36415; 80048; 86140

== ENCOUNTER → 2020-03-13 08:31 | Outpatient (CLI) | payer MEDICAID, SELFPAY ==
[2020-03-10 09:34] VITALS: BMI 39.7
--- NOTE | 2020-03-13 08:36 | VDUE_ITS ---
Reason For Study: CKD Right Arm Left Arm Rt Brachial A: 0.43cm x 0.42cm, 98 cm/s Lt Brachial A: 0.41cm x 0.39cm, 108cm/s Rt Radial A: 0.21cm x 0.22cm, 109 cm/s. Lt Radial A: 0.19cm x 0.23cm, 106cm/s. Right Cephalic Vein at the wrist measures Left Cephalic Vein at the wrist measures 0.26cm x 0.26 cm. 0.28cm x 0.29 cm. Right Cephalic Vein in the forearm measures Left Cephalic Vein in the forearm measures 0.35cm x 0.35 cm. 0.27cm x 0.28 cm. Right Cephalic Vein below antecub measures Left Cephalic Vein below antecub measures 0.32cm x 0.29 cm. 0.28cm x 0.29 cm. Right Cephalic Vein above antecub measures Left Cephalic Vein above antecub measures 0.47cm x 0.47 cm. 0.54cm x 0.62 cm. Right Cephalic Vein mid bicep measures Left Cephalic Vein at mid bicep measures 0.36cm x 0.32 cm. 0.48cm x 0.44 cm. Right Cephalic Vein at the shoulder measures Left Cephalic Vein at the shoulder measures 0.35cm x 0.31 cm. 0.49cm x 0.43 cm. Right Basilic Vein at the origin measures Basilic vein at origin measures 0.30cm x 0.53cm x 0.53 cm. 0.25 cm. Right Basilic Vein mid bicep measures 0.50cm Basilic vein at bicep measures 0.37cm x 0.35 x 0.52 cm. cm. Right Basilic Vein above antecub measures Basilic vein above antecub measures 0.31cm x 0.39cm x 0.41 cm. 0.36 cm. Interpretation Summary Patent and compressible bilateral upper extremity cephalic and basilic veins with dimensions as noted. Normal anticipated bilateral radial and brachial artery diameter and flow Ordering Physician: Lilia Hook Referring Physician: Pop Castillo Performed By: Miya Conway RDCS, RVT ?
== END ==
PROVIDERS: PCP Family Medicine; Referring Provider Internal Medicine Nephrology; Visit Provider Internal Medicine Nephrology
DX: Z01.818 Encounter for other preprocedural examination (principal); N18.4 Chronic kidney disease, stage 4 (severe)
CPT/HCPCS: 93970

== ENCOUNTER → 2020-04-14 07:02 | Outpatient (CLI) | payer MEDICAID, SELFPAY ==
[2020-03-10 09:34] VITALS: BMI 39.7
[2020-04-09 14:22] VITALS: BMI 39.9
--- NOTE | 2020-04-14 07:04 | BI_ITS ---
MAMMOGRAPHY - BILATERAL SCREENING REASON FOR EXAM: Female, 54 years old. Routine annual screening examination. PERTINENT HISTORY: Non-contributory. TECHNIQUE: Digital bilateral breast carlos manuel (3D mammographic acquisition) in the CC and MLO projections. 2-D mediolateral oblique (MLO) and craniocaudad (CC) views of both breasts were obtained. CAD: Full Field Digital Mammography with Computer Added Detection was performed. COMPARISON: None. Baseline examination. FINDINGS: Breast Composition: There are scattered areas of fibroglandular density. There are no dominant masses or suspicious calcifications. No other significant abnormalities are identified. There has been no significant change since the prior study. BI/SCREEN MAMM (CAD) W/CARLOS MANUEL BILAT IMPRESSION: Stable bilateral screening mammogram. Yearly follow-up mammogram recommended. (A) ASSESSMENT CATEGORY: BIRADS Category 1: Negative. A letter regarding these results will be sent to the patient by the facility within 30 days. Approximately 10% of breast cancers are not detected by mammography. A normal mammogram should not delay biopsy of a clinically suspicious abnormality. [id number] Electronically Signed: Mauro Gannon, at 9:11 EST , Service support ,
== END ==
PROVIDERS: PCP Family Medicine; Referring Provider Internal Medicine Hematology & Oncology; Visit Provider Internal Medicine Hematology & Oncology
DX: Z12.31 Encounter for screening mammogram for malignant neoplasm of breast (principal)
CPT/HCPCS: 77063; 77067

== ENCOUNTER → 2020-04-29 08:28 | Outpatient (CLI) | payer MEDICAID, SELFPAY ==
[2020-04-23 12:58] VITALS: BMI 39.3
[2020-04-29 09:20] LABS: Hematocrit 34.9 % (37-47); Hemoglobin 10.5 g/dL (12.0-15.0); Mean Corp Hgb Conc 30.1 g/dL (32-36); Mean Corpuscular Hgb 27.9 pg (27.0-32.0); Mean Corpuscular Volume 92.8 fL (81-99); Mean Platelet Vol. 11.1 fl (6.2-12.0); Platelet Count 336 K/mm3 (150-450); RBC Distribution Width CV 15.3 % (11.6-14.6); RBC Distribution Width SD 50.7 fl (35.1-43.9); Red Blood Count 3.76 M/mm3 (4.2-5.4); White Blood Count 8.3 K/mm3 (4.4-11.0)
[2020-04-29 09:38] LABS: Protein, Urine (Random) 90.6 mg/dL (<11.9); Protein:Creat Ratio 1057 mg/g CRE (0-200)
[2020-04-29 09:48] LABS: PTHIN 142.2 pg/mL (18.4-80.1)
[2020-04-29 09:51] LABS: Albumin, Serum 3.3 g/dL (3.2-5.0); BUN 65 mg/dL (7-18); BUN/Creat Ratio 19.4 RATIO (10-20); Calcium,Total 8.6 mg/dL (8.5-10.1); Chloride 112 mmol/L (98-107); Creatinine, Serum 3.35 mg/dL (0.55-1.02); EST Glomerular Filtration Rate 15 mL/min (>60); Est Glom Filt Rate - Afr Amer 18 mL/min (>60); Glucose 105 mg/dL (74-106); Phosphorus 4.3 mg/dL (2.5-4.9); Potassium 4.1 mmol/L (3.5-5.1); Sodium Level 138 mmol/L (136-145)
== END ==
PROVIDERS: PCP Family Medicine; Referring Provider Internal Medicine Nephrology; Visit Provider Internal Medicine Nephrology
DX: N18.4 Chronic kidney disease, stage 4 (severe) (principal); E11.22 Type 2 diabetes mellitus with diabetic chronic kidney disease; D50.9 Iron deficiency anemia, unspecified
CPT/HCPCS: 36415; 80069; 82570; 83970; 84156; 85027

== ENCOUNTER → 2020-07-03 13:27 | Outpatient (CLI) | payer MEDICAID, SELFPAY ==
[2020-06-18 10:02] VITALS: BMI 40.1
== END ==
LOC: MFPLAB 13:28 → LABSPEC 13:28
PROVIDERS: PCP Family Medicine; Referring Provider Family Medicine; Visit Provider Family Medicine
DX: U07.1 COVID-19 (principal)
CPT/HCPCS: 87635; U0002

== ENCOUNTER 2020-07-07 15:06 | Outpatient (CLI) | payer MEDICAID, SELFPAY ==
[2020-07-07 15:33] VITALS: BP 152/76; PULSE 77; RESP 76; TEMP 36.2; O2SAT 94; BMI 39.2
[2020-07-07 16:26] VITALS: BP 152/80; PULSE 77; RESP 16; TEMP 36.1; O2SAT 96
[2020-07-07 16:55] VITALS: BP 143/91; PULSE 78; RESP 16; TEMP 36.2; O2SAT 95
[2020-07-07 17:30] VITALS: BP 156/80; PULSE 81; RESP 16; TEMP 36.8; O2SAT 96
[2020-07-07 17:58] VITALS: BP 156/79; PULSE 80; RESP 16; TEMP 36.9; O2SAT 97
== END 2020-07-07 18:00 | disposition home or self-care (01) ==
LOC: ICUOUT 15:07 → ICU 15:10
PROVIDERS: PCP Family Medicine; Visit Provider Nurse Practitioner Acute Care
DX: U07.1 COVID-19 (principal)
CPT/HCPCS: J7050; M0239; Q0240

== ENCOUNTER 2020-07-08 10:30 | Inpatient (IN) | payer MEDICAID, SELFPAY ==
[2020-07-07 15:33] VITALS: BMI 39.2
[2020-07-08] VITALS (7 sets, daily range): BP systolic 138–170; BP diastolic 58–75; PULSE 74–88; RESP 16–18; TEMP 36.7–36.8; O2SAT 92–96; BMI 37.0; BMI 38.5
--- NOTE | 2020-07-08 11:00 | RAD_ITS ---
STUDY: X-RAY CHEST REASON FOR EXAM: Female, 55 years old. cough -- + covid TECHNIQUE: Single AP portable view of the chest. COMPARISON: . FINDINGS: Cardiac silhouette unremarkable. Mild pulmonary congestion. Aorta unremarkable. Multifocal hazy bilateral airspace opacities. No pleural effusions. Upper abdomen unremarkable. Osseous structures intact. No pneumothorax. RAD/Chest 1 View (Portable) IMPRESSION: Multifocal hazy bilateral airspace opacities (statistically infection) Electronically Signed: Arjun Arevalo DO at 11:43 EDT Tel , Service support ,
[2020-07-08 11:19] LABS: Absolute Lymphocyte Count 1.14 X10^3/uL (0.83-4.51); Absolute Neutrophil Count 7.1 X10^3/uL (2.0-7.7); Basophil# 0.02 X10^3/uL; Basophil% 0.2 % (0-1); Hematocrit 38.9 % (37-47); Hemoglobin 11.9 g/dL (12.0-15.0); Lymphocyte # 1.14 X10^3/ul (4.0); Lymphocyte % 13.1 % (19-41); Mean Corp Hgb Conc 30.6 g/dL (32-36); Mean Corpuscular Hgb 27.9 pg (27.0-32.0); Mean Corpuscular Volume 91.3 fL (81-99); Mean Platelet Vol. 12.5 fl (6.2-12.0); Monocyte# 0.43 X10^3/uL; Monocyte% 4.9 % (0-10); NRBC Flagged by Analyzer 0 % (0-5); Neutrophil # 7.07 X10^3/uL (2.7-7.7); Neutrophil % 81.3 % (47-70); Platelet Count 122 K/mm3 (150-450); RBC Distribution Width CV 14.4 % (11.6-14.6); RBC Distribution Width SD 48.2 fl (35.1-43.9); Red Blood Count 4.26 M/mm3 (4.2-5.4); White Blood Count 8.7 K/mm3 (4.4-11.0)
--- NOTE | 2020-07-08 11:28 | NURSING ---
CHEMISTRIES HEMOLIZED
[2020-07-08] MEDS: Ondansetron 4 MG/2 ML Vial IV (11:29)
--- NOTE | 2020-07-08 11:34 | NURSING ---
ICU 1 YOON PNEUMONIA, RESP FAILURE, RENAL FAILURE, SBO
[2020-07-08 11:43] LABS: AST(SGOT) 33 U/L (15-37); Alanine Aminotransfer ALT/SGPT 26 U/L (13-56); Albumin, Serum 3.1 g/dL (3.2-5.0); Alkaline Phosphatase 87 U/L (45-117); Anion Gap 10 (5-15); BUN 64 mg/dL (7-18); BUN/Creat Ratio 13.9 RATIO (10-20); Bilirubin, Direct 0.09 mg/dL (0.00-0.30); Calcium,Total 7.8 mg/dL (8.5-10.1); Chloride 113 mmol/L (98-107); Creatinine, Serum 4.62 mg/dL (0.55-1.02); EST Glomerular Filtration Rate 11 mL/min (>60); Est Glom Filt Rate - Afr Amer 13 mL/min (>60); Estimated Creatinine Clearance 13.03 ml/min; Globulin 3.9 g/dL (2.2-4.2); Glucose 187 mg/dL (74-106); Lactic Acid 0.8 mmol/L (0.4-1.9); Potassium 4.3 mmol/L (3.5-5.1); Sodium Level 138 mmol/L (136-145)
--- NOTE | 2020-07-08 12:35 | NURSING ---
PER LAB, BLUE TOP HEMOLIZED
--- NOTE | 2020-07-08 13:09 | ED.VIS.GEN ---
History of Present Illness Chief Complaint: Nausea/Vomiting/Diarrhea Informant: Patient Onset: Days Context: Gradual Onset Current Severity: Moderate Maximum Severity: Moderate Narrative: Patient presents secondary to nausea, vomiting, and diarrhea. Patient is Covid positive. She has had 9 days of symptoms and tested positive on July 03. Patient complains of nausea, vomiting, and diarrhea. She feels that the emesis is very dark in color as well as the diarrhea. She does have some epigastric pain. She has noted some chills. Patient did receive monoclonal antibody treatment yesterday. - Past Medical History (1) Chronic renal failure, stage 3 (moderate) Status: Chronic (2) Diabetes mellitus with polyneuropathy Status: Chronic (3) GERD (gastroesophageal reflux disease) Status: Chronic (4) Hypertension Status: Chronic Past Medical History - Allergies and Home Meds Allergies/Adverse Reactions: Allergies Latex, Natural Rubber Allergy (Severe, Verified 07/08/20 10:32) Rash Penicillins Allergy (Severe, Verified 07/08/20 10:32) Swelling lips swelled lactose Adverse Reaction (Severe, Verified 07/08/20 10:32) Diarrhea Primary Care Physician: John Castillo MD [Primary Care Provider] - Prior records reviewed: Yes Surgical History: hysterectomy, - - 2 c/s Smoking Status: Former smoker - Family History Sibling Family History: Family History (Last Reviewed 07/06/20 @ 15:42 by Dunia Hill NP, TRANSMISSION INSPECTOR-C) Mother Diabetes Heart disease Hypertension Father Diabetes Heart disease Hypertension Brother Diabetes Hypertension Heart disease Family History: Reports: Diabetes, Heart Disease, Hypertension Paternal Family History: Family History (Last Reviewed 07/06/20 @ 15:42 by Dunia Hill NP, TRANSMISSION INSPECTOR-C) Mother Diabetes Heart disease Hypertension Father Diabetes Heart disease Hypertension Brother Diabetes Hypertension Heart disease Family History: Reports: Diabetes, Heart Disease, Hypertension Maternal Family History: Family History (Last Reviewed 07/06/20 @ 15:42 by Dunia Hill NP, TRANSMISSION INSPECTOR-C) Mother Diabetes Heart disease Hypertension Father Diabetes Heart disease Hypertension Brother Diabetes Hypertension Heart disease Family History: Reports: Diabetes, Hypertension, - - Obesity Review of Systems General: Reports: Chills Eyes: Denies: Visual changes - bilaterally ENT: Denies: Bilateral ear pain Cardiovascular: Denies: Chest pain Respiratory: Reports: Cough. Denies: Dyspnea, Sputum Gastrointestinal: Reports: Abdominal pain, Nausea, Vomiting, Diarrhea Genitourinary: Denies: Dysuria Musculoskeletal: Denies: Swelling, Extremity Pain Skin: Denies: Rash Neurological: Denies: Headache Hematologic: Denies: Easy bruising, Easy bleeding Allergy: Denies: Uticaria Physical Exam Vital Signs/Narrative: Vital Signs Temp Pulse Resp BP Pulse Ox 07/08/20 10:32 98.3 F 88 17 138/62 H 95 Inital Vital Signs reviewed: Yes General: Well nourished, Well developed Head: Normocephalic Neck: Supple Cardiovascular: Regular rate, Regular rhythm Respiratory: No distress, CTA bilaterally Abdomen: Soft, Tender - Focal tenderness in the epigastrium., Hypoactive bowel sounds. Negative for: Guarding, Rebound tenderness Extremities: Nontender Skin: Normal color Neurological: Alert, Oriented x3 Psychological: Normal affect Diagnostic/Tx/Re-eval Chest X-Ray - ED: 1 View, Read by ED Physician, - - Chronic changes with mild cephalization. Impressions Chest X-Ray 07/08/20 11:00 IMPRESSION: Multifocal hazy bilateral airspace opacities (statistically infection) Electronically Signed: Arjun Arevalo DO at 11:43 EDT Tel , Service support , 07/08/20 11:00 Chest 1 View (Portable) [RAD] Stat Laboratory Results 07/08/20 07/08/20 07/08/20 11:10 11:10 11:10 WBC 8.7 RBC 4.26 Hgb 11.9 L Hct 38.9 MCV 91.3 MCH 27.9 MCHC 30.6 L RDW Std Deviation 48.2 H RDW Coeff of Frank 14.4 Plt Count 122 L MPV 12.5 H Immature Gran % (Auto) 0.500 Neut % (Auto) 81.3 H Lymph % (Auto) 13.1 L [place] % (Auto) 4.9 Eos % (Auto) 0.0 Baso % (Auto) 0.2 Absolute Neuts (auto) 7.1 Absolute Lymphs (auto) 1.14 Nucleated RBC % 0 PT Cancelled INR Cancelled APTT Cancelled Sodium 138 Potassium 4.3 Chloride 113 H Carbon Dioxide 15.0 L Anion Gap 10 BUN 64 H Creatinine 4.62 H Estim Creat Clear Calc 13.03 Est GFR (MDRD) Af Amer 13 L Est GFR (MDRD) Non-Af 11 L BUN/Creatinine Ratio 13.9 Glucose 187 H Lactic Acid Calcium 7.8 L Total Bilirubin 0.20 Direct Bilirubin 0.09 AST 33 ALT 26 Alkaline Phosphatase 87 Total Protein 7.0 Albumin 3.1 L Globulin 3.9 07/08/20 07/08/20 11:10 12:08 WBC RBC Hgb Hct MCV MCH MCHC RDW Std Deviation RDW Coeff of Frank Plt Count MPV Immature Gran % (Auto) Neut % (Auto) Lymph % (Auto) [place] % (Auto) Eos % (Auto) Baso % (Auto) Absolute Neuts (auto) Absolute Lymphs (auto) Nucleated RBC % PT Cancelled INR Cancelled APTT Cancelled Sodium Potassium Chloride Carbon Dioxide Anion Gap BUN Creatinine Estim Creat Clear Calc Est GFR (MDRD) Af Amer Est GFR (MDRD) Non-Af BUN/Creatinine Ratio Glucose Lactic Acid 0.8 Calcium Total Bilirubin Direct Bilirubin AST ALT Alkaline Phosphatase Total Protein Albumin Globulin - Medical Decision Making Patient was given Zofran as well as a dose of Protonix. Patient did state that she had vomited in the room. Nursing staff did view the contents and stated it did not appear consistent with GI bleed. Hemoglobin is actually improved when compared to prior, however patient's renal function has worsened. Chest x-ray shows mild bilateral infiltrates. She is not currently hypoxic or complaining of dyspnea. Patient be given a liter of IV fluid. I do feel she will require observation for hydration and monitoring of her renal status. Patient will be discussed with the hospitalist. ED Disposition - Plan for ED Patient: Disposition: Home or Assisted Living Diagnosis: Acute on chronic renal failure, COVID-19 Referrals: John Castillo MD [Primary Care Provider] -
[2020-07-08] MEDS: 0.9% Normal Saline 1,000 ML 999 ML IV (13:22)
--- NOTE | 2020-07-08 13:36 | PCM.HP.STD ---
Problem List (1) Pneumonia due to COVID-19 virus Status: Acute (2) COVID-19 Status: Acute (3) Acute on chronic renal failure Status: Acute Qualifiers: Acute renal failure type: unspecified Chronic kidney disease stage: stage 4 (severe) Qualified Code(s): N17.9 - Acute kidney failure, unspecified; N18.4 - Chronic kidney disease, stage 4 (severe) (4) Anemia in chronic kidney disease (CKD) Status: Chronic Qualifiers: Chronic kidney disease stage: stage 4 (severe) Qualified Code(s): N18.4 - Chronic kidney disease, stage 4 (severe); D63.1 - Anemia in chronic kidney disease (5) DARCY (obstructive sleep apnea) Status: Chronic Comment: CPAP 12 cm of water (6) Iron deficiency anemia Status: Chronic Qualifiers: Iron deficiency anemia type: unspecified iron deficiency Qualified Code(s): D50.9 - Iron deficiency anemia, unspecified (7) Venous insufficiency Status: Chronic (8) GERD (gastroesophageal reflux disease) Status: Chronic Qualifiers: Esophagitis presence: esophagitis presence not specified Qualified Code(s): K21.9 - Gastro-esophageal reflux disease without esophagitis (9) Hypertension Status: Chronic Qualifiers: Hypertension type: essential hypertension Qualified Code(s): I10 - Essential (primary) hypertension (10) Diabetes mellitus with polyneuropathy Status: Chronic Qualifiers: Diabetes mellitus type: type 2 (11) Obesity (BMI 30-39.9) Status: Chronic History of Present Illness Date of Admission: 07/08/20 Chief Complaint: Recent + COVID 07/03/20, worsening symptoms, onset dark appearing emesis x 3 days. The patient is a 55 y/o F w/ PMHx: Obesity, Diabetes mellitus type II with neuropathy, Hx Diabetic foot wounds, PVD, HTN, HLD, Fe deficiency anemia, Chronic pain syndrome, GERD, CKD stage IV who presents to the [facility] ED on 07/08/20 with history of recent Covid diagnosis on 07/03/2020 with now 9 days of progressively worsening symptoms with fever, chills, nausea as well as emesis, mild abdominal cramping with loose stools intermittently, dry nonproductive cough, absence of taste, severe body aches, bilateral frontal headaches with no shortness of breath with 07/07/2020 monoclonal antibody administration however patient over the last 24 hours has had ongoing emesis which appeared very dark to her and was concerning for possible blood therefore she presented to the ED for evaluation. In the ED patient emesis with no obvious evidence of coffee-ground appearance with no appearance of any active bright red blood either. Guaiac of patient emesis was requested however she had emesis in her bedside commode which Ev had urine in it therefore this was unable to be sent. Patient does report that she believes she became ill secondary to someone also having Covid at synagogue. She has been going to synagogue at [employer] and notes that there have been no routine separation between people nor any routine mask wearing and singing has been a part of the services. Work-up in the ED included T 90.3, heart rate 88, BP 138/62, respiratory rate 17, 92 to 95% on room air, CBC with WC 8.7, hemoglobin 11.9, platelet 122 without marked shift with most recent hemoglobin on 06/19/2019 110.8 and baseline appears 10-11 primarily although prior to this baseline appears 9, pending coags upon requested evaluation, CMP with chloride 113, BUN/creatinine 64/4.62, glucose 27, lactic acid 0.8, chest x-ray multifocal hazy bilateral airspace opacities consistent with Covid pneumonia. In the ED patient ministered normal saline, Zofran and Protonix IV bolus. Past Medical History Past Medical History (Chronic Problems): Chronic Problems (Last Reviewed 07/06/20 @ 15:42 by Dunia Hill [employer]ACE [employer] MISSILE OPERATIONS SPACELIFT, SPACE AND MISSILE OPERATIONS SPACELIFT-C) Anemia in chronic kidney disease (CKD) (Chronic) Obesity (BMI 30-39.9) (Chronic) Chronic renal insufficiency, stage IV (severe) (Chronic) Anemia of chronic renal failure, stage 3 (moderate) (Chronic) Chronic renal failure, stage 3 (moderate) (Chronic) Calculus of gallbladder with chronic cholecystitis without obstruction (Chronic) SOB (shortness of breath) on exertion (Chronic) DARCY (obstructive sleep apnea) (Chronic) CPAP 12 cm of water Iron deficiency anemia (Chronic) Gait instability (Chronic) Venous insufficiency (Chronic) History of amputation of hallux (Chronic) GERD (gastroesophageal reflux disease) (Chronic) Hypertension (Chronic) MRSA (methicillin resistant staph aureus) culture positive (Chronic) left great toe Diabetes mellitus with polyneuropathy (Chronic) Diabetic neuropathy (Chronic) Diabetes mellitus type 2, uncontrolled (Chronic) Medical History: Medical History (Last Reviewed 07/06/20 @ 15:42 by Dunia Hill [employer] MISSILE [employer]PERATIONS SPACELIFT, SPACE AND MISSILE OPERATIONS SPACELIFT-C) Chronic renal insufficiency, stage IV (severe) (Chronic) N18.4 Iron deficiency anemia (Chronic) D50.9 Diarrhea in adult patient (Resolved) Onset Date: ~02/2016 R19.7 chronic intermittent diarrhea-etiology unknown Gait instability (Chronic) R26.81 Diabetic foot ulcer (Resolved) E11.621, L97.509 Venous insufficiency (Chronic) History of amputation of hallux (Chronic) Z89.419 GERD (gastroesophageal reflux disease) (Chronic) K21.9 Hypertension (Chronic) I10 Delayed wound healing (Resolved) T14.8 Edema of left lower extremity (Resolved) R60.0 MRSA (methicillin resistant staph aureus) culture positive (Chronic) Z22.322 left great toe Chronic ulcer of left foot with necrosis of muscle (Resolved) L97.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) M86.9 left great toe Malnutrition (Resolved) E46 Diabetes mellitus with polyneuropathy (Chronic) E11.42 Vaginal candidiasis (Resolved) B37.3 Diabetic neuropathy (Chronic) E11.40 Diabetes mellitus type 2, uncontrolled (Chronic) E11.65 Chronic ulcer of right great toe with fat layer exposed (Resolved) L97.512 Diabetic ulcer of left great toe (Resolved) E11.621, L97.529 with osteomylitis of left great toe Puncture wound of toe of left foot (Resolved) S91.139A Cellulitis of toe of left foot (Resolved) L03.032 Allergies Latex, Natural Rubber Allergy (Severe, Verified 07/08/20 10:32) Rash Penicillins Allergy (Severe, Verified 07/08/20 10:32) Swelling lips swelled lactose Adverse Reaction (Severe, Verified 07/08/20 10:32) Diarrhea Home Medications: Ambulatory Orders Medication Instructions Recorded glipizide 5 mg tablet 10 mg PO DAILY tab 09/21/17 Loperamide [Imodium] 2 mg PO BID PRN 03/07/18 Ergocalciferol [Vitamin D] 50,000 unit PO QWEEK 03/10/20 Ferrous Sulfate [Iron] 325 mg PO DAILY 03/10/20 Omeprazole [Prilosec] 40 mg PO DAILY 03/10/20 Calcitriol [Rocaltrol] 0.25 mcg PO DAILY 05/21/20 Carisoprodol [Soma] 350 mg PO DAILY 05/21/20 Dicyclomine HCl 20 mg PO TIDCM 05/21/20 Losartan Potassium [Cozaar] 50 mg PO DAILY 05/21/20 Multivitamins,Therapeutic 1 tab PO DAILY 05/21/20 [Multivitamin] Surgical History: Surgical History (Last Reviewed 07/06/20 @ 15:42 by Dunia Hill [employer]ACE [employer] MISSILE [employer]PERATIONS SPACELIFT, SPACE AND MISSILE OPERATIONS SPACELIFT-C) Hx of cardiac catheterization (Acute) Z98.890 History of section (Acute) Z98.891 History of esophagogastroduodenoscopy (EGD) (Acute) Z98.890 History of colonoscopy (Acute) Onset Date: ~02/2016 Z98.890 S/P laparoscopic cholecystectomy (Acute) Onset Date: ~06/2018 Z90.49 Amputated toe (Resolved) Z89.429 H/O: hysterectomy (Resolved) Z98.890, Z90.710 Surgical History: hysterectomy, - - x2, foot surgery with toe amputation, hysterectomy, cholecystectomy. 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 Lives: Alone Smoking Status: Never smoker Tobacco Use: Non-smoker Alcohol: None Drugs: None - *Family History Sibling Family History: Family History (Last Reviewed 07/06/20 @ 15:42 by Dunia Hill [employer] MISSILE [employer]PERATIONS SPACELIFT, SPACE AND MISSILE OPERATIONS SPACELIFT-C) Mother Diabetes Heart disease Hypertension Father Diabetes Heart disease Hypertension Brother Diabetes Hypertension Heart disease History Items: Diabetes, Heart Disease, Hypertension Paternal Family History: Family History (Last Reviewed 07/06/20 @ 15:42 by Dunia Hill [employer]ACE [employer] MISSILE [employer]PERATIONS SPACELIFT, SPACE AND MISSILE OPERATIONS SPACELIFT-C) Mother Diabetes Heart disease Hypertension Father Diabetes Heart disease Hypertension Brother Diabetes Hypertension Heart disease History Items: Diabetes, Heart Disease, Hypertension Maternal Family History: Family History (Last Reviewed 07/06/20 @ 15:42 by Dunia Hill NP, SPACE AND MISSILE OPERATIONS SPACELIFT-C) Mother Diabetes Heart disease Hypertension Father Diabetes Heart disease Hypertension Brother Diabetes Hypertension Heart disease History Items: Diabetes, Hypertension, - - Obesity Review of Systems Constitutional: Reports: Anorexia, Chills, Fever, Malaise, Weakness, Fatigue. Denies: Weight Change HEENT: Reports: Head Aches, Post Nasal Drip, Sinus Congestion, Sore Throat. Denies: Sinus Drainage Cardiovascular: Denies: Chest Pain, Palpitations Respiratory: Reports: Cough. Denies: Shortness of breath at rest, Shortness of breath upon exertion, Sputum production, Wheezing Gastrointestinal: Reports: Abdominal Pain, Diarrhea, Nausea, Vomiting, - - Notes dark emesis, ? coffee ground, does not appear this way during ED evaluation. Genitourinary: Denies: Dysuria Musculoskeletal: Reports: Back Pain, Joint Pain, Muscle pain. Denies: Joint Tenderness Skin: Denies: Rash, Wounds Neurological: Denies: Numbness, Tingling, Focal weakness Psychiatric: Denies: Anxiety, Depression, Homicidal Ideations, Suicidal Ideations Hematologic/ Lymphatic: Reports: Anemia. Denies: Easy Bruising, Easy Bleeding VTE Information - Inpt Only VTE Present on Admission: No VTE Mechan Device Prophylaxis: SCD's VTE Pharm Prophylaxis ordered?: No Reason prophylaxis not ordered:: Medical Contraindication - Hold until assure no active GI bleeding as noted. Patient Problems: Active and Suspected Problems (Last Reviewed 07/06/20 @ 15:42 by Dunia Hill [employer] MISSILE [employer]PERATIONS SPACELIFT, SPACE AND MISSILE OPERATIONS SPACELIFT-C) Acute on chronic renal failure (Acute) COVID-19 (Acute) Subjective: Patient seated upright in the ED bed, fatigued appearing, ill-appearing. Objective: Physical Examination: General: awake, alert, oriented x 3 and cooperative, seated upright in the ED bed, fatigued and ill-appearing. Skin: normal color, turgor, no icterus, cyanosis. HEENT: AT/NC, EOMI, PERRLA, dry MM, no carotid bruits or JVD noted. Lungs: Diffusely diminished breath sounds, greater bases, no obvious evidence of any distress, moderate effort, no rales, ronchi or wheezing. Heart: Regular rate and rhythm; no gallop, rub audible. Abdomen: soft, obese, NTTP, ND, moderately hyperactive BS, difficult to discern HSM secondary to habitus. Extremities: no cyanosis, clubbing, or edema. Neurological: patient awake, alert, oriented as noted; cognitive function intact; pupils equally reactive to light and accomodation; cranial nerves II-XII grossly normal, moving all 4 extremities, no focal deficits, strength moderately to severely global decrease secondary to acute presentation and complaints. Psychiatric: affect appears fatigued, flat, no acute evidence of depressive or anxiety feelings. - Physical Exam Vitals/I&O's: Vital Signs Temp Pulse Resp BP Pulse Ox 98.3 F 82 16 148/65 H 92 07/08/20 10:32 07/08/20 13:21 07/08/20 13:21 07/08/20 13:21 07/08/20 13:21 Oxygen Delivery Method Room Air Weight: 229 lb 11.547 oz Body Mass Index (BMI) 37.0 Finger Stick Blood Glucose 142 Intake and Output for Last 24 Hours 07/06/20 07/07/20 07/08/20 23:59 23:59 23:59 Intake Total 110 / 110 Balance 110 / 110 Laboratory Results 07/08/20 11:10: WBC 8.7, RBC 4.26, Hgb 11.9 L, Hct 38.9, MCV 91.3, MCH 27.9, MCHC 30.6 L, RDW Std Deviation 48.2 H, RDW Coeff of Frank 14.4, Plt Count 122 L, MPV 12.5 H, Immature Gran % (Auto) 0.500, Neut % (Auto) 81.3 H, Lymph % (Auto) 13.1 L, [place] % (Auto) 4.9, Eos % (Auto) 0.0, Baso % (Auto) 0.2, Absolute Neuts (auto) 7.1, Absolute Lymphs (auto) 1.14, Nucleated RBC % 0 07/08/20 11:10: PT Cancelled, INR Cancelled, APTT Cancelled 07/08/20 11:10: Sodium 138, Potassium 4.3, Chloride 113 H, Carbon Dioxide 15.0 L, Anion Gap 10, BUN 64 H, Creatinine 4.62 H, Estim Creat Clear Calc 13.03, Est GFR (MDRD) Af Amer 13 L, Est GFR (MDRD) Non-Af 11 L, BUN/Creatinine Ratio 13.9, Glucose 187 H, Calcium 7.8 L, Total Bilirubin 0.20, Direct Bilirubin 0.09, AST 33, ALT 26, Alkaline Phosphatase 87, Total Protein 7.0, Albumin 3.1 L, Globulin 3.9 07/08/20 11:10: Lactic Acid 0.8 07/08/20 12:08: PT Cancelled, INR Cancelled, APTT Cancelled 07/08/20 13:15: PT Pending, INR Pending, APTT Pending Assessment/Plan All Active Problems (Last Reviewed 07/06/20 @ 15:42 by Dunia Hill [employer]PERATIONS SPACELIFT, SPACE AND MISSILE OPERATIONS SPACELIFT-C) Acute on chronic renal failure (Acute) COVID-19 (Acute) Pneumonia due to COVID-19 virus (Acute) Hx of cardiac catheterization (Acute) History of section (Acute) History of esophagogastroduodenoscopy (EGD) (Acute) History of colonoscopy (Acute ~02/2016) S/P laparoscopic cholecystectomy (Acute ~06/2018) Hypertensive urgency (Acute) Dehydration (Acute) Headache (Acute) Amputated toe (Resolved) H/O: hysterectomy (Resolved) Diarrhea in adult patient (Resolved ~02/2016) Diabetic foot ulcer (Resolved) Delayed wound healing (Resolved) Edema of left lower extremity (Resolved) 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 The patient is a 55 y/o F w/ PMHx: Obesity, Diabetes mellitus type II with neuropathy, Hx Diabetic foot wounds, PVD, HTN, HLD, Fe deficiency anemia, Chronic pain syndrome, GERD, CKD stage IV who presents to the [facility] ED on 07/08/20 with history of recent Covid diagnosis on 07/03/2020 with now 9 days of progressively worsening symptoms with fever, chills, nausea as well as emesis, mild abdominal cramping with loose stools intermittently, dry nonproductive cough, absence of taste, severe body aches, bilateral frontal headaches with no shortness of breath with 07/07/2020 monoclonal antibody administration however patient over the last 24 hours has had ongoing emesis which appeared very dark to her and was concerning for possible blood therefore she presented to the ED for evaluation. 1. Acute Dyspnea, Cough, Mild Hypoxia with Bilateral Pneumonia secondary to Acute Viral Syndrome, COVID-19: Will admit to the COVID unit, will maintain on oxygen with wean as tolerated to room air, PRN albuterol, HOB, IS parameters w/ pending sputum cultures, respiratory viral panel and urine antigens, will obtain D-dimer, procalcitonin, CRP, CPK, Ferritin, LDH, trop and BNP, continue supportive care including q 2 hour turning including prone given no prone bed availability and judicious hydration, closely monitor for worsening status for ARDS and multiorgan failure, will consult Infectious disease, will initiate and continue IV decadron x 10 doses if guiac of emesis is negative given patient concerns for darkened appearance although no obvious concerns upon emesis witnessed in the ED, patient not candidate for remdesivir given DEN on CKD stage IV. 2. Questionable GI bleed, lower suspicion: Patient with questionable GI bleed upon presentation reporting very dark possibly coffee-ground emesis is at home however emesis witnessed in the ED with no obvious concerns but unable to obtain sample for guaiac secondary to being mixed with urine in her bedside commode, will guaiac to be cautious, will hold on steroid administration as noted above #1 pending guaiac and if negative will continue with this plan, will cycle H&H's to be cautious and maintain on IV PPI as well as limit diet to clears. If any concerns may then request surgery involvement. Given patient current positive Covid status would likely require intubation if immediate endoscopies were necessary. Given patient complained of some epigastric tenderness additionally obtain lipase and also initiate Carafate. 3. DEN on Chronic Kidney Disease Stage IV: Admission BUN/Cr 64/4.62, baseline renal function 2.5-3.3 primarily. Given COVID + status, will judiciously hydrate, hold nephrotoxic medications and repeat chemistry in AM. If no improvement would plan FeNa assessment. 4. Diabetes mellitus type II: Hold oral home regimen, as noted will maintain on clear liquids and advance to ADA once clinically appropriate, accu checks w/ ISS. 5. Chronic anemia, iron deficiency: Admission hemoglobin 11.9, baseline appears 10-11 more recently although in the past had been routinely 9, stable, trend. Continue iron supplementation. 6. Obesity: Weight loss and lifestyle changes encouraged. 7. Chronic pain syndrome: Given presentation will cautiously continue Soma however if renal function continues to worsen may require alteration of dosing. 8. Hypertension: Holding patient losartan given acute kidney injury, resume once appropriate, PRN hydralazine. 9. Hyperlipidemia: Not on statin, defer to outpatient. 10. GERD: Continued on IV PPI as noted above. 11. DVT prophylaxis: SCDs, defer chemoprophylaxis pending #2 evaluation, given #1 would desire to add chemoprophylaxis per Covid protocol if able. 12. CODE status: Patient does not have healthcare power of civil rights attorney nor living will set up. Given current Covid illness presentation, discussed CODE status at length including difference between FULL code, DNR-CCA and DNR-CC status. Following discussions about the differences in these status, requested Full Code status. Patient also amenable to high flow and BIPAP if necessary. Advanced Care Planning Face to Face Time: 16 minutes. Inpatient E&M: 47550 Init Hosp L3 Procedures: 08118 Advncd Care Plan 30 Min
[2020-07-08 13:40] LABS: Partial Thromboplast Time 29.3 Seconds (24.1-36.2); Prothrombin Time (Protime)PT. 12.9 SECONDS (11.7-14.9)
--- NOTE | 2020-07-08 13:54 | NURSING ---
ms2 covid covid, acute on chronic renal failure, pneumonia white
--- NOTE | 2020-07-08 13:55 | NURSING ---
PCU CP WHITE
--- NOTE | 2020-07-08 14:15 | NURSING ---
CV ICU 203
[2020-07-08 16:04] LABS: D-Dimer Quantitative (DVT/PE) 1.42 FEU/ug/m (0.27-0.49)
[2020-07-08 16:14] LABS: BNP,B-Type NATRIURETIC PEPTIDE 26.2 pg/mL (0-100)
[2020-07-08 16:18] LABS: Ferritin 253 ng/mL (8-252); LDH 355 U/L (84-246); Magnesium 1.8 mg/dL (1.6-2.6)
--- NOTE | 2020-07-08 16:24 | VDLE_ITS ---
Reason For Study: Pain RIGHT LEFT GSV is normal. GSV is normal. CFV, FV and PopV are compressible. CFV, FV and PopV are compressible. T/P Trunk is compressible. T/P Trunk is compressible. PTV is compressible. PTV is compressible. RT PerV is compressible. LT PerV is compressible. Procedure This is a venous duplex using B-mode, color flow and spectral Doppler. Exam performed portable in patient room. The exam was abbreviated due to the COVID 19 protocol. A preliminary report was called and/or faxed to RN. VL/Venous Duplex US - Yuri Extrem Interpretation Summary No evidence for acute deep venous thrombosis bilateral lower extremities with p atent and compressible bilateral great saphenous veins. Covid-19 protocol utilized Ordering Physician: Yary Bellamy Referring Physician: Osmin Castillo MD Performed By: Alma Delia Pennington RVT
[2020-07-08 17:36] LABS: Lipase 476 U/L (73-393)
[2020-07-08] MEDS: 0.9% Normal Saline 1,000 ML 125 ML IV (17:57)
[2020-07-08] MEDS: 0.9% Saline Lock 10 ML Syringe IV (17:57)
[2020-07-08 18:21] LABS: Hematocrit 35.3 % (37-47); Hemoglobin 10.7 g/dL (12.0-15.0)
[2020-07-08 19:15] LABS: Procalcitonin 0.28 ng/mL (0.00-0.09)
[2020-07-08 19:31] LABS: Bedside Glucose 188 mg/dL (70-110)
[2020-07-08] MEDS: Sucralfate 1 GM Tablet PO (23:02)
[2020-07-08 23:53] LABS: Hematocrit 32.1 % (37-47); Hemoglobin 9.8 g/dL (12.0-15.0)
[2020-07-09] VITALS (14 sets, daily range): BP systolic 132–171; BP diastolic 61–80; PULSE 66–79; RESP 18–19; TEMP 36.4–36.6; O2SAT 92–94; BMI 38.6
[2020-07-09 00:36] LABS: Bedside Glucose 130 mg/dL (70-110)
[2020-07-09] MEDS: 0.9% Normal Saline 1,000 ML 125 ML IV ×3 (01:59→20:58)
[2020-07-09 04:59] LABS: Absolute Lymphocyte Count 1.42 X10^3/uL (0.83-4.51); Absolute Neutrophil Count 2.9 X10^3/uL (2.0-7.7); Basophil# 0.02 X10^3/uL; Basophil% 0.4 % (0-1); Eosinophil# 0.01 X10^3/uL; Eosinophils% 0.2 % (0-5); Hematocrit 32.8 % (37-47); Hemoglobin 9.7 g/dL (12.0-15.0); Lymphocyte # 1.42 X10^3/ul (4.0); Lymphocyte % 30.1 % (19-41); Mean Corp Hgb Conc 29.6 g/dL (32-36); Mean Corpuscular Hgb 28.4 pg (27.0-32.0); Mean Corpuscular Volume 96.2 fL (81-99); Mean Platelet Vol. 12.1 fl (6.2-12.0); Monocyte# 0.36 X10^3/uL; Monocyte% 7.6 % (0-10); NRBC Flagged by Analyzer 0 % (0-5); Neutrophil % 61.5 % (47-70); Platelet Count 128 K/mm3 (150-450); RBC Distribution Width CV 14.6 % (11.6-14.6); RBC Distribution Width SD 50.9 fl (35.1-43.9); Red Blood Count 3.41 M/mm3 (4.2-5.4); White Blood Count 4.7 K/mm3 (4.4-11.0)
[2020-07-09 05:16] LABS: ALB/GLOB Ratio 0.7 RATIO (0.9-2.4); AST(SGOT) 22 U/L (15-37); Alanine Aminotransfer ALT/SGPT 17 U/L (13-56); Albumin, Serum 2.3 g/dL (3.2-5.0); Alkaline Phosphatase 64 U/L (45-117); Anion Gap 9 (5-15); BUN 57 mg/dL (7-18); BUN/Creat Ratio 15.1 RATIO (10-20); Calcium,Total 7.2 mg/dL (8.5-10.1); Chloride 119 mmol/L (98-107); Creatinine, Serum 3.78 mg/dL (0.55-1.02); EST Glomerular Filtration Rate 13 mL/min (>60); Est Glom Filt Rate - Afr Amer 16 mL/min (>60); Estimated Creatinine Clearance 15.31 ml/min; Globulin 3.4 g/dL (2.2-4.2); Glucose 92 mg/dL (74-106); Potassium 3.7 mmol/L (3.5-5.1); Protein, Total 5.7 g/dL (6.4-8.2); Sodium Level 142 mmol/L (136-145)
[2020-07-09 06:00] LABS: Bedside Glucose 84 mg/dL (70-110)
[2020-07-09] MEDS: 0.9% Saline Lock 10 ML Syringe IV (07:00)
[2020-07-09] MEDS: Sucralfate 1 GM Tablet PO ×4 (07:00→22:33)
[2020-07-09 07:15] LABS: Bedside Glucose 128 mg/dL (70-110)
--- NOTE | 2020-07-09 07:24 | PN_ITS ---
Patient Problems: Active and Suspected Problems (Last Reviewed 07/06/20 @ 15:42 by Dunia Hill ASSOCIATE DIRECTOR OF NURSING, ASSOCIATE DIRECTOR OF NURSING-C) Acute on chronic renal failure (Acute) COVID-19 (Acute) Pneumonia due to COVID-19 virus (Acute) Reason for Visit: Follow-up for COVID-19 pneumonia with GI bleed Objective: No fever, tachycardia, hypoxia. Recent GI bleed. Discussed with surgeon. Patient has history of achalasia cardia and had surgery with clippings in [facility] in 2017. She had dysphagia prior to that. She denies gastric or small bowel ulcer history although might have gastritis. No dysguesia or anosmia. Physical exam: General: Alert, Oriented x3, Cooperative HEENT: Atraumatic, PERRLA, EOMI, Normocephalic Oral: No Gingival or Mucosal Lesions/ Ulcerations Neck: Supple, No JVD, Negative Carotid Bruits Lungs: Air entry diminished in bilateral lung bases. No crepitation/rhonchi Cardiovascular: Regular rate, Regular Rhythm, Normal S1, Normal S2, No murmurs Abdomen: Bowel Sounds Present, Soft, Non Tender, Non-Distended : No renal angle tenderness. No suprapubic tenderness. Extremities: No edema, Capillary Refill Less than 3 Seconds Skin: No rashes, No breakdown Musculoskeletal: No Tenderness to Palpation of Joints or Extremities Neurological: Cranial nerves II-XII grossly intact, Deep Tendon Reflexes 2+/4 and Symmetrical, Neuro grossly intact Psych/Mental Status: Normal Affect, Appropriate. Vitals/I&O's: Vital Signs Temp Pulse Resp BP Pulse Ox 97.8 F 66 18 153/61 H 94 07/09/20 02:00 07/09/20 03:57 07/09/20 02:00 07/09/20 02:00 07/09/20 02:00 Oxygen Delivery Method Room Air Weight: 232 lb 5.875 oz Body Mass Index (BMI) 38.5 Finger Stick Blood Glucose 142 Intake and Output for Last 24 Hours 07/07/20 07/08/20 07/09/20 23:59 23:59 23:59 Intake Total 1220 / 1220 1000 / 1000 Output Total 150 / 150 500 / 500 Balance 1070 / 1070 500 / 500 Microbiology Past 72 Hours 07/08/20 22:00 Urine, Random Legionella Antigen - Final 07/08/20 22:00 Urine, Random Streptococcus pneumoniae Antigen (M - Final 07/08/20 17:35 Mucosa - Nose Respiratory Panel (PCR) - Final Laboratory Results 07/08/20 11:10: WBC 8.7, RBC 4.26, Hgb 11.9 L, Hct 38.9, MCV 91.3, MCH 27.9, MCHC 30.6 L, RDW Std Deviation 48.2 H, RDW Coeff of Frank 14.4, Plt Count 122 L, MPV 12.5 H, Immature Gran % (Auto) 0.500, Neut % (Auto) 81.3 H, Lymph % (Auto) 13.1 L, [place] % (Auto) 4.9, Eos % (Auto) 0.0, Baso % (Auto) 0.2, Absolute Neuts (auto) 7.1, Absolute Lymphs (auto) 1.14, Nucleated RBC % 0 07/08/20 11:10: PT Cancelled, INR Cancelled, APTT Cancelled 07/08/20 11:10: Sodium 138, Potassium 4.3, Chloride 113 H, Carbon Dioxide 15.0 L , Anion Gap 10, BUN 64 H, Creatinine 4.62 H, Estim Creat Clear Calc 13.03, Est GFR (MDRD) Af Amer 13 L, Est GFR (MDRD) Non-Af 11 L, BUN/Creatinine Ratio 13.9, Glucose 187 H, Calcium 7.8 L, Total Bilirubin 0.20, Direct Bilirubin 0.09, AST 33, ALT 26, Alkaline Phosphatase 87, Total Protein 7.0, Albumin 3.1 L, Globulin 3.9 07/08/20 11:10: Lactic Acid 0.8 07/08/20 12:08: PT Cancelled, INR Cancelled, APTT Cancelled 07/08/20 13:15: PT 12.9, INR 1.0, APTT 29.3 07/08/20 13:15: D-Dimer Quant (PE/DVT) 1.42 H* 07/08/20 13:15: Magnesium 1.8, Ferritin 253 H, Lactate Dehydrogenase 355 H, Troponin I < 0.015, C-React Prot Ext Range 72.30 H 07/08/20 13:15: B-Natriuretic Peptide 26.2 07/08/20 13:15: Lipase 476 H 07/08/20 17:55: Procalcitonin 0.28 H 07/08/20 17:55: Hgb 10.7 L, Hct 35.3 L 07/08/20 18:17: POC Glucose 188 H 07/08/20 22:57: POC Glucose 130 H 07/08/20 23:44: Hgb 9.8 L, Hct 32.1 L 07/09/20 04:50: WBC 4.7, RBC 3.41 L, Hgb 9.7 L, Hct 32.8 L, MCV 96.2 D, MCH 28.4, MCHC 29.6 L, RDW Std Deviation 50.9 H, RDW Coeff of Frank 14.6, Plt Count 128 L, MPV 12.1 H, Immature Gran % (Auto) 0.200, Neut % (Auto) 61.5, Lymph % (Auto) 30.1, [place] % (Auto) 7.6, Eos % (Auto) 0.2, Baso % (Auto) 0.4, Absolute Neuts (auto) 2.9, Absolute Lymphs (auto) 1.42, Nucleated RBC % 0 07/09/20 04:50: Sodium 142, Potassium 3.7, Chloride 119 H, Carbon Dioxide 14.0 L , Anion Gap 9, BUN 57 H, Creatinine 3.78 H, Estim Creat Clear Calc 15.31, Est GFR (MDRD) Af Amer 16 L, Est GFR (MDRD) Non-Af 13 L, BUN/Creatinine Ratio 15.1, Glucose 92, Calcium 7.2 L, Total Bilirubin 0.20, AST 22, ALT 17, Alkaline Phosphatase 64, Total Protein 5.7 L, Albumin 2.3 L, Globulin 3.4, Albumin/Globulin Ratio 0.7 L 07/09/20 05:50: POC Glucose 84 07/09/20 06:59: POC Glucose 128 H Current Medications Acetaminophen (Acetaminophen 325 Mg Tablet) 650 mg PO Q6H PRN PRN PRN Reason: Pain Score 1-10/Temp > 100.7 F Al Hydroxide/Mg Hydroxide (Mag Hydrox/Al Hydrox/Simeth 30 Ml Udc) 30 ml PO Q6H PRN PRN PRN Reason: Gastric Burning Albuterol Sulfate (Albuterol Sulfate 8 Gm Inhaler (60 Puffs)) 1 puff INHALATION Q4H PRN PRN PRN Reason: Dyspnea, wheezing Calcitriol (Calcitriol 0.25 Mcg Capsule) [facility] Dexamethasone Sodium Phosphate (Dexamethasone 10 Mg/Ml Vial) 6 mg IV DAILY [facility] Last Admin: 07/08/20 21:11 Dose: Not Given Documented by: Dicyclomine HCl (Dicyclomine 10 Mg Capsule) 20 mg PO TIDCM [facility] Last Admin: 07/08/20 18:00 Dose: Not Given Documented by: Ferrous Sulfate (Ferrous Sulfate 325 Mg Tablet) [facility] Guaifenesin (Guaifenesin 10 Ml Udc (200mg/10ml)) 20 ml PO Q4H PRN PRN PRN Reason: COUGH Hydralazine HCl (Hydralazine 20 Mg/Ml Vial) 10 mg IV Q4H PRN PRN PRN Reason: SBP > 160 Sodium Chloride () 1,000 mls @ 125 mls/hr IV .Q8H [facility] Last Admin: 07/09/20 01:59 Dose: 125 mls/hr Documented by: Pantoprazole Sodium 40 mg/ (Sodium Chloride) 110 mls @ 330 mls/hr IV Q12 [facility] Last Infusion: 07/08/20 23:22 Dose: Infused Documented by: Sodium Chloride () 250 mls @ 15 mls/hr IV .[id number] PRN PRN Reason: Saline Flush Sodium Chloride () 250 mls @ 15 mls/hr IV .[id number] PRN PRN Reason: Additional IVPB Infusion Insulin Human Lispro (Insulin Lispro 100 Unit/Ml Insuln.Pen) 0 unit SC [facility]; Protocol Last Admin: 07/09/20 07:00 Dose: Not Given Documented by: Loperamide HCl (Loperamide 2 Mg Capsule) 2 mg PO BID PRN PRN Reason: Diarrhea Melatonin (Melatonin 3 Mg Tablet) 3 mg PO QHS PRN PRN PRN Reason: INSOMNIA Nutritional Formula (Lactose Free) (Glucerna Shake 120 Ml Liquid) 120 ml PO TIDCM [facility] Last Admin: 07/08/20 19:34 Dose: Not Given Documented by: Ondansetron HCl (Ondansetron 4 Mg/2 Ml Vial) 4 mg IV Q8H PRN PRN PRN Reason: NAUSEA/VOMITING Prochlorperazine Edisylate (Prochlorperazine 10 Mg/2 Ml Vial) 5 mg IV Q4H PRN PRN PRN Reason: Breakthrough nausea/vomiting Sodium Chloride (0.9% Saline Lock 10 Ml Syringe) 10 - 40 ml IV UD PRN PRN Reason: SALINE FLUSH Last Admin: 07/09/20 07:00 Dose: 10 ml Documented by: Sucralfate (Sucralfate 1 Gm Tablet) 1 gm PO 1HR_ACHS [facility] Last Admin: 07/09/20 07:00 Dose: 1 gm Documented by: Throat Lozenges (Benzocaine/Menthol 1 Lozenge) 1 lozenge MUCOUS MEM Q2H PRN PRN PRN Reason: SORE THROAT STROKE Vital Signs/Narrative: Vital Signs Pulse 07/09/20 03:57 66 Medical Necessity - Tobacco Use Smoking Status: Never smoker Tobacco Use: Non-smoker Assessment/Plan All Active Problems (Last Reviewed 07/06/20 @ 15:42 by Dunia Hill ASSOCIATE DIRECTOR OF NURSING, ASSOCIATE DIRECTOR OF NURSING- C) Acute on chronic renal failure (Acute) COVID-19 (Acute) Pneumonia due to COVID-19 virus (Acute) Hx of cardiac catheterization (Acute) History of section (Acute) History of esophagogastroduodenoscopy (EGD) (Acute) History of colonoscopy (Acute ~02/2016) S/P laparoscopic cholecystectomy (Acute ~06/2018) Hypertensive urgency (Acute) Dehydration (Acute) Headache (Acute) Amputated toe (Resolved) H/O: hysterectomy (Resolved) Diarrhea in adult patient (Resolved ~02/2016) Diabetic foot ulcer (Resolved) Delayed wound healing (Resolved) Edema of left lower extremity (Resolved) 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 he patient is a 55 y/o F with multiple comorbidities is admitted with nausea, vomiting and diarrhea. Patient tested positive of Covid on July 03 and has 9 days of symptoms. Monoclonal antibody administration on 07/07/2020. 1. Bilateral COVID-19 pneumonia: Patient is admitted on Covid cohort floor. ID is consulted. Remdesivir not indicated because of DEN on CKD stage IV. Dexamethasone discontinued for concern of upper GI bleed with drop in H&H and patient has normal oxygenation, 94% on room air. Ferritin, LDH and CRP are elevated. Procalcitonin 0.28, elevated. Heart rate is controlled. 2. Acute GI bleed with coffee-ground emesis: Drop in hemoglobin from 11.9-9.7 but has been stable for last 2 H&H. IV PPI every 12 hourly and sucralfate. Stool for occult blood is positive. Ferritin elevated. Surgeon consulted. N.p.o. in case EGD is needed. 3. DEN on Chronic Kidney Disease Stage IV: Admission BUN/Cr 64/4.62, baseline renal function 2.5-3.3 primarily. Given COVID + status, will judiciously hydrate, hold nephrotoxic medications and repeat chemistry in AM. If no improvement would plan FeNa assessment. 4. Diabetes mellitus type II: Sliding scale insulin. Glucose is controlled 5. Acute anemia apparently due to upper GI bleed on chronic iron deficiency anemia: As mentioned above. Hold on dexamethasone. 6. Obesity, grade 2: Weight loss and lifestyle changes encouraged. 7. Chronic pain syndrome: 8. Hypertension: Losartan is on hold. Blood pressure is controlled. 9. Hyperlipidemia: Outpatient evaluation. 10. GERD: Continued on IV PPI as noted above. 11. DVT prophylaxis: SCDs, compartment lubricant trending secondary to GI bleed Clinical Impression(s) from Imaging Studies Chest X-Ray 07/08/20 11:00 IMPRESSION: Multifocal hazy bilateral airspace opacities (statistically infection) Microbiology Past 72 Hours 07/09/20 07:00 Stool Stool Occult Blood (MELVINA) - Final Occult Blood Positive 07/08/20 22:00 Urine, Random Legionella Antigen - Final 07/08/20 22:00 Urine, Random Streptococcus pneumoniae Antigen (M - Final 07/08/20 17:35 Mucosa - Nose Respiratory Panel (PCR) - Final Laboratory Results 07/08/20 13:15: D-Dimer Quant (PE/DVT) 1.42 H* 07/08/20 13:15: Magnesium 1.8, Ferritin 253 H, Lactate Dehydrogenase 355 H, Troponin I < 0.015, C-React Prot Ext Range 72.30 H 07/08/20 13:15: B-Natriuretic Peptide 26.2 07/08/20 13:15: Lipase 476 H 07/08/20 17:55: Procalcitonin 0.28 H 07/08/20 17:55: Hgb 10.7 L, Hct 35.3 L 07/08/20 18:17: POC Glucose 188 H 07/08/20 22:57: POC Glucose 130 H 07/08/20 23:44: Hgb 9.8 L, Hct 32.1 L 07/09/20 04:50: WBC 4.7, RBC 3.41 L, Hgb 9.7 L, Hct 32.8 L, MCV 96.2 D, MCH 28.4, MCHC 29.6 L, RDW Std Deviation 50.9 H, RDW Coeff of Farnk 14.6, Plt Count 128 L, MPV 12.1 H, Immature Gran % (Auto) 0.200, Neut % (Auto) 61.5, Lymph % (Auto) 30.1, [place] % (Auto) 7.6, Eos % (Auto) 0.2, Baso % (Auto) 0.4, Absolute Neuts (auto) 2.9, Absolute Lymphs (auto) 1.42, Nucleated RBC % 0 07/09/20 04:50: Sodium 142, Potassium 3.7, Chloride 119 H, Carbon Dioxide 14.0 L , Anion Gap 9, BUN 57 H, Creatinine 3.78 H, Estim Creat Clear Calc 15.31, Est GFR (MDRD) Af Amer 16 L, Est GFR (MDRD) Non-Af 13 L, BUN/Creatinine Ratio 15.1, Glucose 92, Calcium 7.2 L, Total Bilirubin 0.20, AST 22, ALT 17, Alkaline Phosphatase 64, Total Protein 5.7 L, Albumin 2.3 L, Globulin 3.4, Albumin/Globulin Ratio 0.7 L 07/09/20 05:50: POC Glucose 84 07/09/20 06:59: POC Glucose 128 H 07/09/20 12:50: Hgb 10.5 L, Hct 34.1 L Inpatient E&M: [id number] Subs Hosp L3
[2020-07-09] MEDS: Dicyclomine 10 MG Capsule 20 MG PO ×2 (08:31→17:01)
[2020-07-09] MEDS: Calcitriol 0.25 MCG Capsule PO (08:31)
[2020-07-09] MEDS: Ferrous Sulfate 325 MG Tablet PO (08:31)
[2020-07-09] MEDS: Sodium Ferric Gluconat 250 MG in 0.9% Normal Saline 250 ML 135 MG IV (10:17)
--- NOTE | 2020-07-09 11:45 | CASEMGMT ---
SHANTANU CRUZ called patient in for initial transition planning/care coordination assessment. SHANTANU CRUZ introduced self and role at [facility]. Patient is alert and oriented. Patient willing to participate in assessment and is able to answer all questions appropriately. Care providers, pharmacy, and demographics verified. Patient wishes to discharge home, denies need for home health at this time. Patient states she has no further needs or concerns at this time. CM to follow for discharge planning needs that may arise. PCP: Anna Specialists: Monster bezel cutter; [facility] transplant team; Valeria central supply aide Preferred Pharmacy: [facility], [facility] retail at discharge Insurance: [employer] Prescription Benefit: yes Living Will/HPOA: none LNOK: sister, brother Living Arrangements: Patient lives alone in a duplex with bed and bath on first floor. 2 steps and railing to enter the home. Patient states she is independent at home. Transportation: self/[employer] DME/HHC: Patient states she has shower chair and grab bars at home. Patient states she has plenty of groceries at home until she is out of quarantine. Patient is currently on room air, will monitor for need for home oxygen. Disposition Plan: Patient to discharge home with family support and follow-up plans in place. Alma Delia ARNDT, RN, CM
[2020-07-09 13:05] LABS: Hematocrit 34.1 % (37-47); Hemoglobin 10.5 g/dL (12.0-15.0)
--- NOTE | 2020-07-09 14:27 | PCM.HP.ID ---
Reason for Consult: COVID-19 Consulted by: Dr. Bellamy History of Present Illness: The patient is a 55 year old F [] 55-year-old white female with a past medical history of longstanding diabetes mellitus complicated by peripheral neuropathy and diabetic foot ulcers, chronic renal disease who was diagnosed with COVID-19 last week and presents with epigastric distress. Denies any respiratory symptomatology. No recent fever. Patient did lose her sense of taste and smell early prior last week. Patient did not receive the COVID-19 vaccine. Chest x-ray shows patchy infiltrates. Patient is currently comfortable on room air with adequate O2 saturations. Does have evidence of chronic renal disease. - Medical History Past Medical History (Chronic Problems): Chronic Problems (Last Reviewed 07/06/20 @ 15:42 by Dunia Hill [employer]SPORTATION DRIVER, [employer]SPORTATION DRIVER-C) Anemia in chronic kidney disease (CKD) (Chronic) Obesity (BMI 30-39.9) (Chronic) Chronic renal insufficiency, stage IV (severe) (Chronic) Anemia of chronic renal failure, stage 3 (moderate) (Chronic) Chronic renal failure, stage 3 (moderate) (Chronic) Calculus of gallbladder with chronic cholecystitis without obstruction (Chronic) SOB (shortness of breath) on exertion (Chronic) DARCY (obstructive sleep apnea) (Chronic) CPAP 12 cm of water Iron deficiency anemia (Chronic) Gait instability (Chronic) Venous insufficiency (Chronic) History of amputation of hallux (Chronic) GERD (gastroesophageal reflux disease) (Chronic) Hypertension (Chronic) MRSA (methicillin resistant staph aureus) culture positive (Chronic) left great toe Diabetes mellitus with polyneuropathy (Chronic) Diabetic neuropathy (Chronic) Diabetes mellitus type 2, uncontrolled (Chronic) Allergies/Adverse Reactions: Allergies Latex, Natural Rubber Allergy (Severe, Verified 07/08/20 10:32) Rash Penicillins Allergy (Severe, Verified 07/08/20 10:32) Swelling lips swelled lactose Adverse Reaction (Severe, Verified 07/08/20 10:32) Diarrhea Home Medications: Ambulatory Orders Medication Instructions Recorded glipizide 5 mg tablet 10 mg PO DAILY tab 09/21/17 Loperamide [Imodium] 2 mg PO BID PRN 03/07/18 Ergocalciferol [Vitamin D] 50,000 unit PO QWEEK 03/10/20 Ferrous Sulfate [Iron] 325 mg PO DAILY 03/10/20 Omeprazole [Prilosec] 40 mg PO DAILY 03/10/20 Calcitriol [Rocaltrol] 0.25 mcg PO DAILY 05/21/20 Carisoprodol [Soma] 350 mg PO DAILY 05/21/20 Dicyclomine HCl 20 mg PO TIDCM 05/21/20 Losartan Potassium [Cozaar] 50 mg PO DAILY 05/21/20 Multivitamins,Therapeutic 1 tab PO DAILY 05/21/20 [Multivitamin] Vital Signs Temp Pulse Resp BP Pulse Ox 97.5 F L 74 19 H 132/69 H 94 07/09/20 12:41 07/09/20 12:41 07/09/20 12:41 07/09/20 12:41 07/09/20 12:41 Oxygen Delivery Method Room Air Weight: 105.4 kg Body Mass Index (BMI) 38.5 Finger Stick Blood Glucose 142 Microbiology Past 72 Hours 07/09/20 07:00 Stool Occult Blood (MELVINA) - Final Stool Occult Blood Positive 07/08/20 22:00 Legionella Antigen - Final Urine, Random Streptococcus pneumoniae Antigen (M - Final 07/08/20 17:35 Respiratory Panel (PCR) - Final Mucosa - Nose Laboratory Tests Past 24 Hrs 07/08/20 07/08/20 07/08/20 13:15 13:15 13:15 WBC RBC Hgb Hct MCV MCH MCHC RDW Std Deviation RDW Coeff of Frank Plt Count MPV Immature Gran % (Auto) Neut % (Auto) Lymph % (Auto) [place] % (Auto) Eos % (Auto) Baso % (Auto) Absolute Neuts (auto) Absolute Lymphs (auto) Nucleated RBC % D-Dimer Quant (PE/DVT) 1.42 H* Sodium Potassium Chloride Carbon Dioxide Anion Gap BUN Creatinine Estim Creat Clear Calc Est GFR (MDRD) Af Amer Est GFR (MDRD) Non-Af BUN/Creatinine Ratio Glucose Calcium Magnesium 1.8 Ferritin 253 H Total Bilirubin AST ALT Alkaline Phosphatase Lactate Dehydrogenase 355 H Troponin I < 0.015 C-React Prot Ext Range 72.30 H B-Natriuretic Peptide 26.2 Total Protein Albumin Globulin Albumin/Globulin Ratio Lipase Procalcitonin 07/08/20 07/08/20 07/08/20 13:15 17:55 17:55 WBC RBC Hgb 10.7 L Hct 35.3 L MCV MCH MCHC RDW Std Deviation RDW Coeff of Frank Plt Count MPV Immature Gran % (Auto) Neut % (Auto) Lymph % (Auto) [place] % (Auto) Eos % (Auto) Baso % (Auto) Absolute Neuts (auto) Absolute Lymphs (auto) Nucleated RBC % D-Dimer Quant (PE/DVT) Sodium Potassium Chloride Carbon Dioxide Anion Gap BUN Creatinine Estim Creat Clear Calc Est GFR (MDRD) Af Amer Est GFR (MDRD) Non-Af BUN/Creatinine Ratio Glucose Calcium Magnesium Ferritin Total Bilirubin AST ALT Alkaline Phosphatase Lactate Dehydrogenase Troponin I C-React Prot Ext Range B-Natriuretic Peptide Total Protein Albumin Globulin Albumin/Globulin Ratio Lipase 476 H Procalcitonin 0.28 H 07/08/20 07/09/20 07/09/20 23:44 04:50 04:50 WBC 4.7 RBC 3.41 L Hgb 9.8 L 9.7 L Hct 32.1 L 32.8 L MCV 96.2 D MCH 28.4 MCHC 29.6 L RDW Std Deviation 50.9 H RDW Coeff of Frank 14.6 Plt Count 128 L MPV 12.1 H Immature Gran % (Auto) 0.200 Neut % (Auto) 61.5 Lymph % (Auto) 30.1 [place] % (Auto) 7.6 Eos % (Auto) 0.2 Baso % (Auto) 0.4 Absolute Neuts (auto) 2.9 Absolute Lymphs (auto) 1.42 Nucleated RBC % 0 D-Dimer Quant (PE/DVT) Sodium 142 Potassium 3.7 Chloride 119 H Carbon Dioxide 14.0 L Anion Gap 9 BUN 57 H Creatinine 3.78 H Estim Creat Clear Calc 15.31 Est GFR (MDRD) Af Amer 16 L Est GFR (MDRD) Non-Af 13 L BUN/Creatinine Ratio 15.1 Glucose 92 Calcium 7.2 L Magnesium Ferritin Total Bilirubin 0.20 AST 22 ALT 17 Alkaline Phosphatase 64 Lactate Dehydrogenase Troponin I C-React Prot Ext Range B-Natriuretic Peptide Total Protein 5.7 L Albumin 2.3 L Globulin 3.4 Albumin/Globulin Ratio 0.7 L Lipase Procalcitonin 07/09/20 12:50 WBC RBC Hgb 10.5 L Hct 34.1 L MCV MCH MCHC RDW Std Deviation RDW Coeff of Frank Plt Count MPV Immature Gran % (Auto) Neut % (Auto) Lymph % (Auto) [place] % (Auto) Eos % (Auto) Baso % (Auto) Absolute Neuts (auto) Absolute Lymphs (auto) Nucleated RBC % D-Dimer Quant (PE/DVT) Sodium Potassium Chloride Carbon Dioxide Anion Gap BUN Creatinine Estim Creat Clear Calc Est GFR (MDRD) Af Amer Est GFR (MDRD) Non-Af BUN/Creatinine Ratio Glucose Calcium Magnesium Ferritin Total Bilirubin AST ALT Alkaline Phosphatase Lactate Dehydrogenase Troponin I C-React Prot Ext Range B-Natriuretic Peptide Total Protein Albumin Globulin Albumin/Globulin Ratio Lipase Procalcitonin - Other Studies Radiology: [] Other Studies: [] Route of nutrition/ use of supplements: [] Nutritional Intake: [] IV Site: [] Pike Catheter: [] Alert and responsive does not appear toxic lungs are clear heart exam S1-S2 abdomen is obese but soft. - Assessment/Plan Antibiotics: [] Assessment/Plan: [] Active and Suspected Problems (Last Reviewed 07/06/20 @ 15:42 by Dunia Hill [employer] TRANSPORTATION DRIVER, [employer]SPORTATION DRIVER-C) Acute on chronic renal failure (Acute) COVID-19 (Acute) Pneumonia due to COVID-19 virus (Acute) COVID-19 in the patient with diabetes mellitus and renal disease. Patient has very minimal respiratory symptomatology and adequate O2 saturations on room air. I agree with holding off on remdesivir as well as low-dose dexamethasone given her clinical condition at this time. Continue supportive care.
--- NOTE | 2020-07-09 15:37 | PCM.NTREPORT ---
Nutrition Therapy Report - History Nutrition Services has been consulted to:: Manage nutrient details of diet order Current diet / nutrition support order:: NPO - Anthropometric Measurements Height:: 5 ft 5 in Weight:: 105.4 kg Body Mass Index (BMI):: 38.6 - Relevant Labs Relevant Labs:: RBC 3.41 M/mm3 (4.2-5.4) L 07/09/20 04:50 Hgb 10.5 g/dL (12.0-15.0) L 07/09/20 12:50 Hct 34.1 % (37-47) L 07/09/20 12:50 MCHC 29.6 g/dL (32-36) L 07/09/20 04:50 RDW Std Deviation 50.9 fl (35.1-43.9) H 07/09/20 04:50 Plt Count 128 K/mm3 (150-450) L 07/09/20 04:50 MPV 12.1 fl (6.2-12.0) H 07/09/20 04:50 Neut % (Auto) 81.3 % (47-70) H 07/08/20 11:10 Lymph % (Auto) 13.1 % (19-41) L 07/08/20 11:10 D-Dimer Quant (PE/DVT) 1.42 FEU/ug/m (0.27-0.49) H* 07/08/20 13:15 Chloride 119 mmol/L (98-107) H 07/09/20 04:50 Carbon Dioxide 14.0 mmol/L (21.0-32.0) L 07/09/20 04:50 BUN 57 mg/dL (7-18) H 07/09/20 04:50 Creatinine 3.78 mg/dL (0.55-1.02) H 07/09/20 04:50 Est GFR (MDRD) Af Amer 16 mL/min (>60) L 07/09/20 04:50 Est GFR (MDRD) Non-Af 13 mL/min (>60) L 07/09/20 04:50 Glucose 187 mg/dL (74-106) H 07/08/20 11:10 Calcium 7.2 mg/dL (8.5-10.1) L 07/09/20 04:50 Ferritin 253 ng/mL (8-252) H 07/08/20 13:15 Lactate Dehydrogenase 355 U/L (84-246) H 07/08/20 13:15 C-React Prot Ext Range 72.30 mg/L (0.0-3.0) H 07/08/20 13:15 Total Protein 5.7 g/dL (6.4-8.2) L 07/09/20 04:50 Albumin 2.3 g/dL (3.2-5.0) L 07/09/20 04:50 Albumin/Globulin Ratio 0.7 RATIO (0.9-2.4) L 07/09/20 04:50 Lipase 476 U/L (73-393) H 07/08/20 13:15 Procalcitonin 0.28 ng/mL (0.00-0.09) H 07/08/20 17:55 - Assessment Food / Nutrition-Related History:: Spoke w/ pt via room phone d/t COVID-19 isolation. 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 States she was eating very little, just fruit. Pt feels has lost ~10# during acute illness. UBW 240# and was 229.7# on ED standing scale- 10.3#/4.29% wt loss x 1 week is significant. No special diet at home. Reports gas below breast bone after eating d/t hx of achalasia. SMBG 2-4x/day. - Nutrition Diagnosis Problem / Etiology / Signs & Symptoms (PES):: acute, severe malnutrition r/t decreased appetite w/ inadequate energy intake during acute COVID-19 illness as evidenced by estimated PO intake meeting <50% of nutritional needs x 1 week, unintentional wt loss of 10.3#/4.29% x 1 week. Evidence of Malnutrition Exists:: Yes Severe PCM:: Acute Illness - Nutrition Intervention Nutrition Prescription:: 2846-1345 calories/day (1.3xRMR). 80-90 g protein/day (0.8g/kg). 2000mL fluid/day (1mL/calorie) - Food / Nutrient Delivery Interventions Summary of nutrition intervention:: Pt states she is feeling more hungry today; currently NPO pending surgery consult for possible GI bleed. No questions for RDN at this time. Nutrition support ordered as / adjusted to:: advance diet as tolerated to CHO controlled, sodium restricted. - MNT Monitoring Further MNT monitoring and evaluation required?: Yes MNT Follow-up in:: 3-5 days
[2020-07-09 17:15] LABS: Bedside Glucose 134 mg/dL (70-110)
[2020-07-09 18:30] LABS: Bedside Glucose 105 mg/dL (70-110)
[2020-07-09] MEDS: hydrALAZINE 20 MG/ML Vial 10 MG IV (22:44)
[2020-07-10] VITALS (8 sets, daily range): BP systolic 158–179; BP diastolic 57–71; PULSE 72–93; RESP 18; TEMP 36.5–36.7; O2SAT 93–97
[2020-07-10] MEDS: Ondansetron 4 MG/2 ML Vial IV (02:59)
[2020-07-10 05:03] LABS: Absolute Lymphocyte Count 0.85 X10^3/uL (0.83-4.51); Absolute Neutrophil Count 3.8 X10^3/uL (2.0-7.7); Basophil# 0.01 X10^3/uL; Basophil% 0.2 % (0-1); Eosinophil# 0.01 X10^3/uL; Eosinophils% 0.2 % (0-5); Hematocrit 32.6 % (37-47); Hemoglobin 9.9 g/dL (12.0-15.0); Lymphocyte # 0.85 X10^3/ul (4.0); Lymphocyte % 16.8 % (19-41); Mean Corp Hgb Conc 30.4 g/dL (32-36); Mean Corpuscular Hgb 28.1 pg (27.0-32.0); Mean Corpuscular Volume 92.6 fL (81-99); Mean Platelet Vol. 11.6 fl (6.2-12.0); Monocyte# 0.38 X10^3/uL; Monocyte% 7.5 % (0-10); NRBC Flagged by Analyzer 0 % (0-5); Neutrophil # 3.78 X10^3/uL (2.7-7.7); Neutrophil % 74.9 % (47-70); Platelet Count 142 K/mm3 (150-450); RBC Distribution Width CV 14.7 % (11.6-14.6); RBC Distribution Width SD 50.3 fl (35.1-43.9); Red Blood Count 3.52 M/mm3 (4.2-5.4); White Blood Count 5.1 K/mm3 (4.4-11.0)
[2020-07-10 05:19] LABS: ALB/GLOB Ratio 0.7 RATIO (0.9-2.4); AST(SGOT) 25 U/L (15-37); Alanine Aminotransfer ALT/SGPT 18 U/L (13-56); Albumin, Serum 2.4 g/dL (3.2-5.0); Alkaline Phosphatase 66 U/L (45-117); Anion Gap 8 (5-15); BUN 46 mg/dL (7-18); BUN/Creat Ratio 15.1 RATIO (10-20); Calcium,Total 7.6 mg/dL (8.5-10.1); Chloride 119 mmol/L (98-107); Creatinine, Serum 3.04 mg/dL (0.55-1.02); EST Glomerular Filtration Rate 17 mL/min (>60); Est Glom Filt Rate - Afr Amer 21 mL/min (>60); Estimated Creatinine Clearance 19.04 ml/min; Globulin 3.6 g/dL (2.2-4.2); Glucose 102 mg/dL (74-106); Potassium 3.8 mmol/L (3.5-5.1); Sodium Level 143 mmol/L (136-145)
[2020-07-10 05:21] LABS: Bedside Glucose 101 mg/dL (70-110)
[2020-07-10] MEDS: 0.9% Normal Saline 1,000 ML 125 ML IV (05:22)
[2020-07-10] MEDS: hydrALAZINE 20 MG/ML Vial 10 MG IV (06:35)
[2020-07-10] MEDS: Sucralfate 1 GM Tablet PO (06:35)
[2020-07-10 06:46] LABS: Bedside Glucose 97 mg/dL (70-110)
--- NOTE | 2020-07-10 07:19 | CON.PCM_ITS ---
Problem List (1) COVID-19 Status: Acute Reason for Consult Date of Consultation: 07/10/20 History of Present Illness: The patient is a 55 year old F who presents to the hospital with Covid symptoms and a positive Covid test. The patient reports that she had dark vomitus at home and it resembled coffee grounds. The patient has not had any coffee-ground emesis or bloody stools since admission. She denies any sharp abdominal pain but thinks that it is more hunger. She denies any nausea or vomiting overnight. She had 2 bowel movements which are nonbloody. Past Medical History Past Medical History (Chronic Problems): Chronic Problems (Last Reviewed 07/06/20 @ 15:42 by Dunia Hill [employer]ABLE [employer], [employer]) Anemia in chronic kidney disease (CKD) (Chronic) Obesity (BMI 30-39.9) (Chronic) Chronic renal insufficiency, stage IV (severe) (Chronic) Anemia of chronic renal failure, stage 3 (moderate) (Chronic) Chronic renal failure, stage 3 (moderate) (Chronic) Calculus of gallbladder with chronic cholecystitis without obstruction (Chronic) SOB (shortness of breath) on exertion (Chronic) DARCY (obstructive sleep apnea) (Chronic) CPAP 12 cm of water Iron deficiency anemia (Chronic) Gait instability (Chronic) Venous insufficiency (Chronic) History of amputation of hallux (Chronic) GERD (gastroesophageal reflux disease) (Chronic) Hypertension (Chronic) MRSA (methicillin resistant staph aureus) culture positive (Chronic) left great toe Diabetes mellitus with polyneuropathy (Chronic) Diabetic neuropathy (Chronic) Diabetes mellitus type 2, uncontrolled (Chronic) Medical History: Medical History (Last Reviewed 07/06/20 @ 15:42 by Dunia Hill [employer], [employer]) Chronic renal insufficiency, stage IV (severe) (Chronic) N18.4 Iron deficiency anemia (Chronic) D50.9 Diarrhea in adult patient (Resolved) Onset Date: ~02/2016 R19.7 chronic intermittent diarrhea-etiology unknown Gait instability (Chronic) R26.81 Diabetic foot ulcer (Resolved) E11.621, L97.509 Venous insufficiency (Chronic) History of amputation of hallux (Chronic) Z89.419 GERD (gastroesophageal reflux disease) (Chronic) K21.9 Hypertension (Chronic) I10 Delayed wound healing (Resolved) T14.8 Edema of left lower extremity (Resolved) R60.0 MRSA (methicillin resistant staph aureus) culture positive (Chronic) Z22.322 left great toe Chronic ulcer of left foot with necrosis of muscle (Resolved) L97.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) M86.9 left great toe Malnutrition (Resolved) E46 Diabetes mellitus with polyneuropathy (Chronic) E11.42 Vaginal candidiasis (Resolved) B37.3 Diabetic neuropathy (Chronic) E11.40 Diabetes mellitus type 2, uncontrolled (Chronic) E11.65 Chronic ulcer of right great toe with fat layer exposed (Resolved) L97.512 Diabetic ulcer of left great toe (Resolved) E11.621, L97.529 with osteomylitis of left great toe Puncture wound of toe of left foot (Resolved) S91.139A Cellulitis of toe of left foot (Resolved) L03.032 Allergies Latex, Natural Rubber Allergy (Severe, Verified 07/08/20 10:32) Rash Penicillins Allergy (Severe, Verified 07/08/20 10:32) Swelling lips swelled lactose Adverse Reaction (Severe, Verified 07/08/20 10:32) Diarrhea Home Medications: Ambulatory Orders Medication Instructions Recorded glipizide 5 mg tablet 10 mg PO DAILY tab 09/21/17 Loperamide [Imodium] 2 mg PO BID PRN 03/07/18 Ergocalciferol [Vitamin D] 50,000 unit PO QWEEK 03/10/20 Ferrous Sulfate [Iron] 325 mg PO DAILY 03/10/20 Omeprazole [Prilosec] 40 mg PO DAILY 03/10/20 Calcitriol [Rocaltrol] 0.25 mcg PO DAILY 05/21/20 Carisoprodol [Soma] 350 mg PO DAILY 05/21/20 Dicyclomine HCl 20 mg PO TIDCM 05/21/20 Losartan Potassium [Cozaar] 50 mg PO DAILY 05/21/20 Multivitamins,Therapeutic 1 tab PO DAILY 05/21/20 [Multivitamin] Surgical History: Surgical History (Last Reviewed 07/06/20 @ 15:42 by Dunia Hill [employer], [employer]) Hx of cardiac catheterization (Acute) Z98.890 History of section (Acute) Z98.891 History of esophagogastroduodenoscopy (EGD) (Acute) Z98.890 History of colonoscopy (Acute) Onset Date: ~02/2016 Z98.890 S/P laparoscopic cholecystectomy (Acute) Onset Date: ~06/2018 Z90.49 Amputated toe (Resolved) Z89.429 H/O: hysterectomy (Resolved) Z98.890, Z90.710 Surgical History: hysterectomy, - - x2, foot surgery with toe amputation, hysterectomy, cholecystectomy. 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 SERVICE OFFICER history Lives: Alone Smoking Status: Never smoker Tobacco Use: Non-smoker Alcohol: None Drugs: None - *Family History Sibling Family History: Family History (Last Reviewed 07/06/20 @ 15:42 by Dunia Hill [employer], [employer]) Mother Diabetes Heart disease Hypertension Father Diabetes Heart disease Hypertension Brother Diabetes Hypertension Heart disease History Items: Diabetes, Heart Disease, Hypertension Paternal Family History: Family History (Last Reviewed 07/06/20 @ 15:42 by Dunia Hill [employer], [employer]) Mother Diabetes Heart disease Hypertension Father Diabetes Heart disease Hypertension Brother Diabetes Hypertension Heart disease History Items: Diabetes, Heart Disease, Hypertension Maternal Family History: Family History (Last Reviewed 07/06/20 @ 15:42 by Dunia Hill NP, [employer]) Mother Diabetes Heart disease Hypertension Father Diabetes Heart disease Hypertension Brother Diabetes Hypertension Heart disease History Items: Diabetes, Hypertension, - - Obesity Review of Systems Constitutional: Denies: Anorexia, Fever HEENT: Denies: Difficulty Swallowing Cardiovascular: Denies: Chest Pain Respiratory: Reports: Cough, Shortness of Breath Gastrointestinal: Reports: Diarrhea, Nausea, Vomiting. Denies: Abdominal Pain Musculoskeletal: Denies: Joint Tenderness, Leg Pain Skin: Denies: Jaundice Hematologic/ Lymphatic: Denies: Anemia Patient Problems: Active and Suspected Problems (Last Reviewed 07/06/20 @ 15:42 by Dunia Hill NP, [employer]) Acute on chronic renal failure (Acute) COVID-19 (Acute) Pneumonia due to COVID-19 virus (Acute) - Physical Exam Vitals/I&O's: Vital Signs Temp Pulse Resp BP Pulse Ox 98.0 F 83 18 170/67 H 93 07/10/20 02:47 07/10/20 06:35 07/10/20 02:47 07/10/20 06:34 07/10/20 02:47 Oxygen Delivery Method Room Air Weight: 237 lb 14.06 oz Body Mass Index (BMI) 38.6 Finger Stick Blood Glucose 142 Intake and Output for Last 24 Hours 07/08/20 07/09/20 07/10/20 23:59 23:59 23:59 Intake Total 1220 / 1220 3440.00 / 3440.00 1000 / 1000 Output Total 150 / 150 500 / 500 Balance 1070 / 1070 2940.00 / 2940.00 1000 / 1000 General: Alert, Oriented x3 Neck: No JVD Lungs: Normal air movement Cardiovascular: Regular rate, Regular Rhythm Abdomen: Soft, Non Tender, Non-Distended Musculoskeletal: No Muscle Wasting Lymphatic: No Cervical, Supraclavicular, or Inguinal Adenopathy Neurological: Cranial nerves II-XII grossly intact Psych/Mental Status: Normal Affect Microbiology Past 72 Hours 07/09/20 22:55 Stool Stool Occult Blood (MELVINA) - Final 07/09/20 07:00 Stool Stool Occult Blood (MELVINA) - Final Occult Blood Positive 07/08/20 22:00 Urine, Random Legionella Antigen - Final 07/08/20 22:00 Urine, Random Streptococcus pneumoniae Antigen (M - Final 07/08/20 17:35 Mucosa - Nose Respiratory Panel (PCR) - Final Laboratory Results 07/09/20 12:23: POC Glucose 134 H 07/09/20 12:50: Hgb 10.5 L, Hct 34.1 L 07/09/20 16:50: POC Glucose 105 07/09/20 22:30: POC Glucose 101 07/10/20 04:55: WBC 5.1, RBC 3.52 L, Hgb 9.9 L, Hct 32.6 L, MCV 92.6, MCH 28.1, MCHC 30.4 L, RDW Std Deviation 50.3 H, RDW Coeff of Frank 14.7 H, Plt Count 142 L, MPV 11.6, Immature Gran % (Auto) 0.400, Neut % (Auto) 74.9 H, Lymph % (Auto) 16.8 L, [place] % (Auto) 7.5, Eos % (Auto) 0.2, Baso % (Auto) 0.2, Absolute Neuts (auto) 3.8, Absolute Lymphs (auto) 0.85, Nucleated RBC % 0 07/10/20 04:55: Sodium 143, Potassium 3.8, Chloride 119 H, Carbon Dioxide 16.0 L , Anion Gap 8, BUN 46 H, Creatinine 3.04 H, Estim Creat Clear Calc 19.04, Est GFR (MDRD) Af Amer 21 L, Est GFR (MDRD) Non-Af 17 L, BUN/Creatinine Ratio 15.1, Glucose 102, Calcium 7.6 L, Total Bilirubin 0.20, AST 25, ALT 18, Alkaline Phosphatase 66, Total Protein 6.0 L, Albumin 2.4 L, Globulin 3.6, Albumin/Globulin Ratio 0.7 L 07/10/20 06:31: POC Glucose 97 Clinical Impression(s) from Imaging Studies Chest X-Ray 07/08/20 11:00 IMPRESSION: Multifocal hazy bilateral airspace opacities (statistically infection) Electronically Signed: Arjun Arevalo DO at 11:43 EDT Tel , Service support , Venous Doppler Study 07/08/20 16:24 Interpretation Summary No evidence for acute deep venous thrombosis bilateral lower extremities with patent and compressible bilateral great saphenous veins. Covid-19 protocol utilized Ordering Physician: Yary Bellamy Referring Physician: Osmin Castillo MD Performed By: Alma Delia Pennington RVT Current Medications Acetaminophen (Acetaminophen 325 Mg Tablet) 650 mg PO Q6H PRN PRN PRN Reason: Pain Score 1-10/Temp > 100.7 F Al Hydroxide/Mg Hydroxide (Mag Hydrox/Al Hydrox/Simeth 30 Ml Udc) 30 ml PO Q6H PRN PRN PRN Reason: Gastric Burning Albuterol Sulfate (Albuterol Sulfate 8 Gm Inhaler (60 Puffs)) 1 puff INHALATION Q4H PRN PRN PRN Reason: Dyspnea, wheezing Calcitriol (Calcitriol 0.25 Mcg Capsule) [facility] Last Admin: 07/09/20 08:31 Dose: 0.25 mcg Documented by: Dicyclomine HCl (Dicyclomine 10 Mg Capsule) 20 mg PO TIDCM [facility] Last Admin: 07/09/20 17:01 Dose: 10 mg Documented by: Ferrous Sulfate (Ferrous Sulfate 325 Mg Tablet) [facility] Last Admin: 07/09/20 08:31 Dose: 325 mg Documented by: Guaifenesin (Guaifenesin 10 Ml Udc (200mg/10ml)) 20 ml PO Q4H PRN PRN PRN Reason: COUGH Hydralazine HCl (Hydralazine 20 Mg/Ml Vial) 10 mg IV Q4H PRN PRN PRN Reason: SBP > 160 Last Admin: 07/10/20 06:35 Dose: 10 mg Documented by: Sodium Chloride () 1,000 mls @ 125 mls/hr IV .Q8H [facility] Last Admin: 07/10/20 05:22 Dose: 125 mls/hr Documented by: Pantoprazole Sodium 40 mg/ (Sodium Chloride) 110 mls @ 330 mls/hr IV Q12 [facility] Last Infusion: 07/09/20 22:54 Dose: Infused Documented by: Sodium Chloride () 250 mls @ 15 mls/hr IV .[id number] PRN PRN Reason: Saline Flush Sodium Chloride () 250 mls @ 15 mls/hr IV .[id number] PRN PRN Reason: Additional IVPB Infusion Insulin Human Lispro (Insulin Lispro 100 Unit/Ml Insuln.Pen) [address] [facility]; Protocol Last Admin: 07/10/20 06:36 Dose: Not Given Documented by: Loperamide HCl (Loperamide 2 Mg Capsule) 2 mg PO BID PRN PRN Reason: Diarrhea Melatonin (Melatonin 3 Mg Tablet) 3 mg PO QHS PRN PRN PRN Reason: INSOMNIA Ondansetron HCl (Ondansetron 4 Mg/2 Ml Vial) 4 mg IV Q8H PRN PRN PRN Reason: NAUSEA/VOMITING Last Admin: 07/10/20 02:59 Dose: 4 mg Documented by: Prochlorperazine Edisylate (Prochlorperazine 10 Mg/2 Ml Vial) 5 mg IV Q4H PRN PRN PRN Reason: Breakthrough nausea/vomiting Sodium Chloride (0.9% Saline Lock 10 Ml Syringe) 10 - 40 ml IV UD PRN PRN Reason: SALINE FLUSH Last Admin: 07/09/20 07:00 Dose: 10 ml Documented by: Sucralfate (Sucralfate 1 Gm Tablet) 1 gm PO 1HR_ACHS [facility] Last Admin: 07/10/20 06:35 Dose: 1 gm Documented by: Throat Lozenges (Benzocaine/Menthol 1 Lozenge) 1 lozenge MUCOUS MEM Q2H PRN PRN PRN Reason: SORE THROAT Assessment/Plan All Active Problems (Last Reviewed 07/06/20 @ 15:42 by Dunia Hill [employer], [employer] C) Acute on chronic renal failure (Acute) COVID-19 (Acute) Pneumonia due to COVID-19 virus (Acute) Hx of cardiac catheterization (Acute) History of section (Acute) History of esophagogastroduodenoscopy (EGD) (Acute) History of colonoscopy (Acute ~02/2016) S/P laparoscopic cholecystectomy (Acute ~06/2018) Hypertensive urgency (Acute) Dehydration (Acute) Headache (Acute) Amputated toe (Resolved) H/O: hysterectomy (Resolved) Diarrhea in adult patient (Resolved ~02/2016) Diabetic foot ulcer (Resolved) Delayed wound healing (Resolved) Edema of left lower extremity (Resolved) 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 The patient was made n.p.o. yesterday with no nausea or vomiting or coffee- ground emesis or blood per stool. Her hemoglobin was stable. She is started on clears last night and tolerated this with no nausea or vomiting. She had 2 bowel movements overnight which were green and contain no blood or melena. I will advance her diet. I recommend that she continue Carafate and PPI on discharge and follow-up with me for elective EGD after Covid is resolved. At this time the patient does not appear to be active bleeding. Follow-up as needed. Sean Casillas MD Pager: [facility] [address] [place] [address] Office:
[2020-07-10] MEDS: Dicyclomine 10 MG Capsule 20 MG PO (08:38)
[2020-07-10] MEDS: Ferrous Sulfate 325 MG Tablet PO (08:38)
[2020-07-10] MEDS: Calcitriol 0.25 MCG Capsule PO (08:38)
[2020-07-10] MEDS: amLODIPine 10 MG Tablet PO (08:47)
--- NOTE | 2020-07-10 09:00 | PCM.PN.HOSP ---
Patient Problems: Active and Suspected Problems (Last Reviewed 07/06/20 @ 15:42 by Dunia Hill TRICOT KNITTER, TRICOT KNITTER-C) Acute on chronic renal failure (Acute) COVID-19 (Acute) Pneumonia due to COVID-19 virus (Acute) Vitals/I&O's: Vital Signs Temp Pulse Resp BP Pulse Ox 97.7 F L 93 18 158/62 H 97 07/10/20 08:45 07/10/20 08:45 07/10/20 08:45 07/10/20 08:45 07/10/20 08:45 Oxygen Delivery Method Room Air Weight: 237 lb 14.06 oz Body Mass Index (BMI) 38.6 Finger Stick Blood Glucose 142 Intake and Output for Last 24 Hours 07/08/20 07/09/20 07/10/20 23:59 23:59 23:59 Intake Total 1220 / 1220 3440.00 / 3440.00 1000 / 1000 Output Total 150 / 150 500 / 500 Balance 1070 / 1070 2940.00 / 2940.00 1000 / 1000 Microbiology Past 72 Hours 07/09/20 22:55 Stool Stool Occult Blood (MELVINA) - Final 07/09/20 07:00 Stool Stool Occult Blood (MELVINA) - Final Occult Blood Positive 07/08/20 22:00 Urine, Random Legionella Antigen - Final 07/08/20 22:00 Urine, Random Streptococcus pneumoniae Antigen (M - Final 07/08/20 17:35 Mucosa - Nose Respiratory Panel (PCR) - Final Laboratory Results 07/09/20 12:23: POC Glucose 134 H 07/09/20 12:50: Hgb 10.5 L, Hct 34.1 L 07/09/20 16:50: POC Glucose 105 07/09/20 22:30: POC Glucose 101 07/10/20 04:55: WBC 5.1, RBC 3.52 L, Hgb 9.9 L, Hct 32.6 L, MCV 92.6, MCH 28.1, MCHC 30.4 L, RDW Std Deviation 50.3 H, RDW Coeff of Frank 14.7 H, Plt Count 142 L, MPV 11.6, Immature Gran % (Auto) 0.400, Neut % (Auto) 74.9 H, Lymph % (Auto) 16.8 L, Saline % (Auto) 7.5, Eos % (Auto) 0.2, Baso % (Auto) 0.2, Absolute Neuts (auto) 3.8, Absolute Lymphs (auto) 0.85, Nucleated RBC % 0 07/10/20 04:55: Sodium 143, Potassium 3.8, Chloride 119 H, Carbon Dioxide 16.0 L, Anion Gap 8, BUN 46 H, Creatinine 3.04 H, Estim Creat Clear Calc 19.04, Est GFR (MDRD) Af Amer 21 L, Est GFR (MDRD) Non-Af 17 L, BUN/Creatinine Ratio 15.1, Glucose 102, Calcium 7.6 L, Total Bilirubin 0.20, AST 25, ALT 18, Alkaline Phosphatase 66, Total Protein 6.0 L, Albumin 2.4 L, Globulin 3.6, Albumin/Globulin Ratio 0.7 L 07/10/20 06:31: POC Glucose 97 Current Medications Acetaminophen (Acetaminophen 325 Mg Tablet) 650 mg PO Q6H PRN PRN PRN Reason: Pain Score 1-10/Temp > 100.7 F Al Hydroxide/Mg Hydroxide (Mag Hydrox/Al Hydrox/Simeth 30 Ml Udc) 30 ml PO Q6H PRN PRN PRN Reason: Gastric Burning Albuterol Sulfate (Albuterol Sulfate 8 Gm Inhaler (60 Puffs)) 1 puff INHALATION Q4H PRN PRN PRN Reason: Dyspnea, wheezing Amlodipine Besylate (Amlodipine 10 Mg Tablet) 10 mg PO DAILY [facility] Last Admin: 07/10/20 08:47 Dose: 10 mg Documented by: Calcitriol (Calcitriol 0.25 Mcg Capsule) [facility] Last Admin: 07/10/20 08:38 Dose: 0.25 mcg Documented by: Dicyclomine HCl (Dicyclomine 10 Mg Capsule) 20 mg PO TIDCM [facility] Last Admin: 07/10/20 08:38 Dose: 20 mg Documented by: Ferrous Sulfate (Ferrous Sulfate 325 Mg Tablet) [facility] Last Admin: 07/10/20 08:38 Dose: 325 mg Documented by: Guaifenesin (Guaifenesin 10 Ml Udc (200mg/10ml)) 20 ml PO Q4H PRN PRN PRN Reason: COUGH Hydralazine HCl (Hydralazine 20 Mg/Ml Vial) 10 mg IV Q4H PRN PRN PRN Reason: SBP > 180 Sodium Chloride () 1,000 mls @ 125 mls/hr IV .Q8H [facility] Last Admin: 07/10/20 05:22 Dose: 125 mls/hr Documented by: Pantoprazole Sodium 40 mg/ (Sodium Chloride) 110 mls @ 330 mls/hr IV Q12 [facility] Last Admin: 07/10/20 08:37 Dose: 330 mls/hr Documented by: Sodium Chloride () 250 mls @ 15 mls/hr IV .[id number] PRN PRN Reason: Saline Flush Sodium Chloride () 250 mls @ 15 mls/hr IV .[id number] PRN PRN Reason: Additional IVPB Infusion Insulin Human Lispro (Insulin Lispro 100 Unit/Ml Insuln.Pen) 0 unit SC [facility]; Protocol Last Admin: 07/10/20 06:36 Dose: Not Given Documented by: Loperamide HCl (Loperamide 2 Mg Capsule) 2 mg PO BID PRN PRN Reason: Diarrhea Melatonin (Melatonin 3 Mg Tablet) 3 mg PO QHS PRN PRN PRN Reason: INSOMNIA Ondansetron HCl (Ondansetron 4 Mg/2 Ml Vial) 4 mg IV Q8H PRN PRN PRN Reason: NAUSEA/VOMITING Last Admin: 07/10/20 02:59 Dose: 4 mg Documented by: Prochlorperazine Edisylate (Prochlorperazine 10 Mg/2 Ml Vial) 5 mg IV Q4H PRN PRN PRN Reason: Breakthrough nausea/vomiting Sodium Chloride (0.9% Saline Lock 10 Ml Syringe) 10 - 40 ml IV UD PRN PRN Reason: SALINE FLUSH Last Admin: 07/09/20 07:00 Dose: 10 ml Documented by: Sucralfate (Sucralfate 1 Gm Tablet) 1 gm PO 1HR_ACHS [facility] Last Admin: 07/10/20 06:35 Dose: 1 gm Documented by: Throat Lozenges (Benzocaine/Menthol 1 Lozenge) 1 lozenge MUCOUS MEM Q2H PRN PRN PRN Reason: SORE THROAT STROKE Vital Signs/Narrative: Vital Signs Temp Pulse Resp BP BP Pulse Ox 07/10/20 08:45 97.7 F L 93 18 158/62 H 97 04/09/21 06:35 83 07/10/20 06:34 170/67 H Medical Necessity - Tobacco Use Smoking Status: Never smoker Tobacco Use: Non-smoker Assessment/Plan All Active Problems (Last Reviewed 07/06/20 @ 15:42 by Dunia Hill TRICOT KNITTER, TRICOT KNITTER-C) Acute on chronic renal failure (Acute) COVID-19 (Acute) Pneumonia due to COVID-19 virus (Acute) Hx of cardiac catheterization (Acute) History of section (Acute) History of esophagogastroduodenoscopy (EGD) (Acute) History of colonoscopy (Acute ~02/2016) S/P laparoscopic cholecystectomy (Acute ~06/2018) Hypertensive urgency (Acute) Dehydration (Acute) Headache (Acute) Amputated toe (Resolved) H/O: hysterectomy (Resolved) Diarrhea in adult patient (Resolved ~02/2016) Diabetic foot ulcer (Resolved) Delayed wound healing (Resolved) Edema of left lower extremity (Resolved) 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
--- NOTE | 2020-07-10 09:34 | DCINST_ITS ---
- Discharge Diagnoses Current Active Problems: Current Active and Chronic Problems (Last Reviewed 07/06/20 @ 15:42 by Dunia Hill FROG OR OYSTER FARMWORKER, FROG OR OYSTER FARMWORKER-C) Anemia in chronic kidney disease (CKD) (Chronic) Acute on chronic renal failure (Acute) COVID-19 (Acute) Obesity (BMI 30-39.9) (Chronic) Pneumonia due to COVID-19 virus (Acute) Chronic renal failure, stage 3 (moderate) (Chronic) DARCY (obstructive sleep apnea) (Chronic) CPAP 12 cm of water Iron deficiency anemia (Chronic) Venous insufficiency (Chronic) GERD (gastroesophageal reflux disease) (Chronic) Hypertension (Chronic) Diabetes mellitus with polyneuropathy (Chronic) You will use the following diet at home:: Calorie/Carbohydrate Controlled (specify 1200, 1400, etc), Cardiac Your food should be the consistency of: Regular Discharge Activity: May Not Drive Call your doctor if you observe: Fever of 101 or Higher, Numbness or Tingling, Change in Color, Inability to urinate, Inability to have a bowel movement, Using more than one pad per hour, Shortness of breath, Dizziness, Fainting spells, Swelling in the ankles, Chest pain, Prolonged hiccoughing, Increased palpitations (irregular heartbeat), Calf discomfort, Uncontrolled pain Additional Instructions: Patient is on kidney transplant [facility] Advised to take glipizide 5 mg daily and hold it if fasting glucose is less than 130 mg/dL. Increase glipizide 10 mg daily if fasting glucose is more than 200 mg/dL Allergies/Adverse Reactions: Allergies Latex, Natural Rubber Allergy (Severe, Verified 07/08/20 10:32) Rash Penicillins Allergy (Severe, Verified 07/08/20 10:32) Swelling lips swelled lactose Adverse Reaction (Severe, Verified 07/08/20 10:32) Diarrhea Medications to take at Discharge Loperamide [Imodium] 2 mg PO BID PRN 03/07/18 Ergocalciferol [Vitamin D] 50,000 unit PO QWEEK 03/10/20 Ferrous Sulfate [Iron] 325 mg PO DAILY 03/10/20 Calcitriol [Rocaltrol] 0.25 mcg PO DAILY 05/21/20 Carisoprodol [Soma] 350 mg PO DAILY 05/21/20 Dicyclomine HCl 20 mg PO TIDCM 05/21/20 Losartan Potassium [Cozaar] 50 mg PO DAILY 05/21/20 Multivitamins,Therapeutic [Multivitamin] 1 tab PO DAILY 05/21/20 Amlodipine [Norvasc] 5 mg PO DAILY #30 tab 07/10/20 Glipizide 5 mg PO BREAKFAST #30 tablet 07/10/20 Pantoprazole Sodium [Protonix] 40 mg PO BID #60 tab 07/10/20 Sucralfate [Carafate] 1 gm PO 1HR_ACHS #120 tablet 07/10/20 The following prescriptions were given: Sucralfate [Carafate] 1 gm PO 1HR_ACHS #120 tablet Transmission Status: Pending to [facility] Glipizide 5 mg PO BREAKFAST #30 tablet Transmission Status: Pending to [facility] Amlodipine [Norvasc] 5 mg PO DAILY #30 tab Transmission Status: Pending to [facility] Pantoprazole Sodium [Protonix] 40 mg PO BID #60 tab Transmission Status: Pending to [facility] Primary Care Physician: John Castillo MD [Primary Care Provider] - Please follow up with your Primary Care Physician in: in 1-2 weeks Test Results: Test results from this visit will be discussed in further detail at your follow- up appointment, if applicable. Please Follow Up With: Lilia Hook DO When: in 2 weeks
--- NOTE | 2020-07-10 09:37 | DS.PCM_ITS ---
Discharge Date and Diagnosis - Problem List Patient Problems: Active and Suspected Problems (Last Reviewed 07/06/20 @ 15:42 by Dunia Hill PIANO ACCOMPANIST, PIANO ACCOMPANIST-C) Acute on chronic renal failure (Acute) COVID-19 (Acute) Pneumonia due to COVID-19 virus (Acute) Date of Admission: 07/08/20 Date of Discharge: 07/10/20 - Primary Discharge Diagnosis Acute Problems: Active Problems (Last Reviewed 07/06/20 @ 15:42 by Dunia Hill PIANO ACCOMPANIST, PIANO ACCOMPANIST-C) Acute on chronic renal failure (Acute) COVID-19 (Acute) Pneumonia due to COVID-19 virus (Acute) - Secondary Discharge Diagnosis Chronic Problems: Chronic Problems (Last Reviewed 07/06/20 @ 15:42 by Dunia Hill PIANO ACCOMPANIST, PIANO ACCOMPANIST-C) Anemia in chronic kidney disease (CKD) (Chronic) Obesity (BMI 30-39.9) (Chronic) Chronic renal insufficiency, stage IV (severe) (Chronic) Anemia of chronic renal failure, stage 3 (moderate) (Chronic) Chronic renal failure, stage 3 (moderate) (Chronic) Calculus of gallbladder with chronic cholecystitis without obstruction (Chronic) SOB (shortness of breath) on exertion (Chronic) DARCY (obstructive sleep apnea) (Chronic) CPAP 12 cm of water Iron deficiency anemia (Chronic) Gait instability (Chronic) Venous insufficiency (Chronic) History of amputation of hallux (Chronic) GERD (gastroesophageal reflux disease) (Chronic) Hypertension (Chronic) MRSA (methicillin resistant staph aureus) culture positive (Chronic) left great toe Diabetes mellitus with polyneuropathy (Chronic) Diabetic neuropathy (Chronic) Diabetes mellitus type 2, uncontrolled (Chronic) Hospital Course and Treatment Operations: None Summary of Care Provided: The patient is a 55 y/o F with multiple comorbidities is admitted with nausea, vomiting and diarrhea. Patient tested positive of Covid on July 03 and has 9 days of symptoms. Monoclonal antibody administration on 07/07/2020. 1. Bilateral COVID-19 pneumonia: Patient is admitted on Covid cohort floor. ID is consulted. Remdesivir not indicated because of DEN on CKD stage IV. Dexamethasone discontinued for concern of upper GI bleed with drop in H&H and patient has normal oxygenation, 94% on room air. Ferritin, LDH and CRP are elevated. Procalcitonin 0.28, elevated. Heart rate is controlled. Patient respiratory status is good with no hypoxia, tachypnea or shortness of breath. No leukocytosis. 2. Acute GI bleed with coffee-ground emesis: Drop in hemoglobin from 11.9-9.7, 10.5's, 9.9. H&H has been stable. Patient was treated with IV PPI every 12 hourly and sucralfate. Stool for occult blood positive. Ferritin elevated. Surgeon was consulted and discussed with him. Follow-up as an outpatient 2 weeks. Prescription given for sucralfate and Protonix 40 mg twice daily. 3. DEN on Chronic Kidney Disease Stage IV: Admission BUN/Cr 64/4.62, baseline renal function 2.5-3.3 primarily. Given COVID + status, will judiciously hydrate, hold nephrotoxic medications and repeat chemistry in AM. If no improve ment would plan FeNa assessment. Creatinine improved from 4.6-3.0. Discussed with the razor sharpener Dr. Hook. Losartan resumed. Amlodipine 5 mg added and patient is advised to take it if systolic blood pressure remains more than 130 even after taking losartan. 4. Diabetes mellitus type II: Sliding scale insulin. Glucose is controlled. Glipizide dose decreased to 5 mg daily as patient blood sugars have been in 100s. Advised to hold glipizide if fasting goes less than 130 or double to 10 mg if glucose goes more than 200 mg/dL. 5. Acute anemia apparently due to upper GI bleed on chronic iron deficiency anemia: As mentioned above. Steroid discontinued. 6. Obesity, grade 2: Weight loss and lifestyle changes encouraged. 7. Chronic pain syndrome: 8. Hypertension: Losartan is on hold. Blood pressure is controlled. 9. Hyperlipidemia: Outpatient evaluation. 10. GERD: Continued on IV PPI as noted above. 11. DVT prophylaxis: SCDs, compartment lubricant trending secondary to GI bleed Discharge medication reconciliation done. Discharge follow-up instructions completed. Discharge process discussed with the patient and all questions were answered to patient's satisfaction. Follow with PCP and Dr. Hook as mentioned in discharge instruction Total time spent, exact 35 minutes on discharge meds reconciliation, examination, coordination of care with nurses and ancillary staff, review of imaging and blood test and discussion with the patient on follow-up instructions Patient Problems: Active and Suspected Problems (Last Reviewed 07/06/20 @ 15:42 by Dunia Hill PIANO ACCOMPANIST, PIANO ACCOMPANIST-C) Acute on chronic renal failure (Acute) COVID-19 (Acute) Pneumonia due to COVID-19 virus (Acute) Objective: Patient does not have shortness of breath, tachypnea or hypoxia. No fever. No episode of GI bleed including hematemesis, hematochezia, or melena. H&H is stable Physical exam: General: Alert, Oriented x3, Cooperative HEENT: Atraumatic, PERRLA, EOMI, Normocephalic Oral: No Gingival or Mucosal Lesions/ Ulcerations Neck: Supple, No JVD, Negative Carotid Bruits Lungs: Air entry diminished in bilateral lung bases. No crepitation/rhonchi Cardiovascular: Regular rate, Regular Rhythm, Normal S1, Normal S2, No murmurs Abdomen: Bowel Sounds Present, Soft, Non Tender, Non-Distended : No renal angle tenderness. No suprapubic tenderness. Extremities: B/L mild ankle edema, Capillary Refill Less than 3 Seconds Skin: No rashes, No breakdown Musculoskeletal: No Tenderness to Palpation of Joints or Extremities Neurological: Cranial nerves II-XII grossly intact, Deep Tendon Reflexes 2+/4 and Symmetrical, Neuro grossly intact Psych/Mental Status: Normal Affect, Appropriate. - Physical Exam Vitals/I&O's: Vital Signs Temp Pulse Resp BP Pulse Ox 97.7 F L 93 18 158/62 H 97 07/10/20 08:45 07/10/20 08:45 07/10/20 08:45 07/10/20 08:45 07/10/20 08:45 Oxygen Delivery Method Room Air Weight: 237 lb 14.06 oz Body Mass Index (BMI) 38.6 Finger Stick Blood Glucose 142 Intake and Output for Last 24 Hours 07/08/20 07/09/20 07/10/20 23:59 23:59 23:59 Intake Total 1220 / 1220 3440.00 / 3440.00 1000 / 1000 Output Total 150 / 150 500 / 500 Balance 1070 / 1070 2940.00 / 2940.00 1000 / 1000 Microbiology Past 72 Hours 07/09/20 22:55 Stool Stool Occult Blood (MELVINA) - Final 07/09/20 07:00 Stool Stool Occult Blood (MELVINA) - Final Occult Blood Positive 07/08/20 22:00 Urine, Random Legionella Antigen - Final 07/08/20 22:00 Urine, Random Streptococcus pneumoniae Antigen (M - Final 07/08/20 17:35 Mucosa - Nose Respiratory Panel (PCR) - Final Laboratory Results 07/09/20 12:23: POC Glucose 134 H 07/09/20 12:50: Hgb 10.5 L, Hct 34.1 L 07/09/20 16:50: POC Glucose 105 07/09/20 22:30: POC Glucose 101 07/10/20 04:55: WBC 5.1, RBC 3.52 L, Hgb 9.9 L, Hct 32.6 L, MCV 92.6, MCH 28.1, MCHC 30.4 L, RDW Std Deviation 50.3 H, RDW Coeff of Frank 14.7 H, Plt Count 142 L, MPV 11.6, Immature Gran % (Auto) 0.400, Neut % (Auto) 74.9 H, Lymph % (Auto) 16.8 L, [place] % (Auto) 7.5, Eos % (Auto) 0.2, Baso % (Auto) 0.2, Absolute Neuts (auto) 3.8, Absolute Lymphs (auto) 0.85, Nucleated RBC % 0 07/10/20 04:55: Sodium 143, Potassium 3.8, Chloride 119 H, Carbon Dioxide 16.0 L , Anion Gap 8, BUN 46 H, Creatinine 3.04 H, Estim Creat Clear Calc 19.04, Est GFR (MDRD) Af Amer 21 L, Est GFR (MDRD) Non-Af 17 L, BUN/Creatinine Ratio 15.1, Glucose 102, Calcium 7.6 L, Total Bilirubin 0.20, AST 25, ALT 18, Alkaline Phosphatase 66, Total Protein 6.0 L, Albumin 2.4 L, Globulin 3.6, Albumin/Globulin Ratio 0.7 L 07/10/20 06:31: POC Glucose 97 Current Medications Acetaminophen (Acetaminophen 325 Mg Tablet) 650 mg PO Q6H PRN PRN PRN Reason: Pain Score 1-10/Temp > 100.7 F Al Hydroxide/Mg Hydroxide (Mag Hydrox/Al Hydrox/Simeth 30 Ml Udc) 30 ml PO Q6H PRN PRN PRN Reason: Gastric Burning Albuterol Sulfate (Albuterol Sulfate 8 Gm Inhaler (60 Puffs)) 1 puff INHALATION Q4H PRN PRN PRN Reason: Dyspnea, wheezing Amlodipine Besylate (Amlodipine 10 Mg Tablet) 10 mg PO DAILY [facility] Last Admin: 07/10/20 08:47 Dose: 10 mg Documented by: Calcitriol (Calcitriol 0.25 Mcg Capsule) [facility] Last Admin: 07/10/20 08:38 Dose: 0.25 mcg Documented by: Dicyclomine HCl (Dicyclomine 10 Mg Capsule) 20 mg PO TIDCM [facility] Last Admin: 07/10/20 08:38 Dose: 20 mg Documented by: Ferrous Sulfate (Ferrous Sulfate 325 Mg Tablet) [facility] Last Admin: 07/10/20 08:38 Dose: 325 mg Documented by: Guaifenesin (Guaifenesin 10 Ml Udc (200mg/10ml)) 20 ml PO Q4H PRN PRN PRN Reason: COUGH Hydralazine HCl (Hydralazine 20 Mg/Ml Vial) 10 mg IV Q4H PRN PRN PRN Reason: SBP > 180 Sodium Chloride () 1,000 mls @ 125 mls/hr IV .Q8H [facility] Last Admin: 07/10/20 05:22 Dose: 125 mls/hr Documented by: Pantoprazole Sodium 40 mg/ (Sodium Chloride) 110 mls @ 330 mls/hr IV Q12 [facility] Last Admin: 07/10/20 08:37 Dose: 330 mls/hr Documented by: Sodium Chloride () 250 mls @ 15 mls/hr IV .[id number] PRN PRN Reason: Saline Flush Sodium Chloride () 250 mls @ 15 mls/hr IV .[id number] PRN PRN Reason: Additional IVPB Infusion Insulin Human Lispro (Insulin Lispro 100 Unit/Ml Insuln.Pen) 0 unit [facility]; Protocol Last Admin: 07/10/20 06:36 Dose: Not Given Documented by: Loperamide HCl (Loperamide 2 Mg Capsule) 2 mg PO BID PRN PRN Reason: Diarrhea Melatonin (Melatonin 3 Mg Tablet) 3 mg PO QHS PRN PRN PRN Reason: INSOMNIA Ondansetron HCl (Ondansetron 4 Mg/2 Ml Vial) 4 mg IV Q8H PRN PRN PRN Reason: NAUSEA/VOMITING Last Admin: 07/10/20 02:59 Dose: 4 mg Documented by: Prochlorperazine Edisylate (Prochlorperazine 10 Mg/2 Ml Vial) 5 mg IV Q4H PRN PRN PRN Reason: Breakthrough nausea/vomiting Sodium Chloride (0.9% Saline Lock 10 Ml Syringe) 10 - 40 ml IV UD PRN PRN Reason: SALINE FLUSH Last Admin: 07/09/20 07:00 Dose: 10 ml Documented by: Sucralfate (Sucralfate 1 Gm Tablet) 1 gm PO 1HR_ACHS [facility] Last Admin: 07/10/20 06:35 Dose: 1 gm Documented by: Throat Lozenges (Benzocaine/Menthol 1 Lozenge) 1 lozenge MUCOUS MEM Q2H PRN PRN PRN Reason: SORE THROAT Discharge Activity: May Not Drive Call your doctor if you observe: Fever of 101 or Higher, Numbness or Tingling, Change in Color, Inability to urinate, Inability to have a bowel movement, Using more than one pad per hour, Shortness of breath, Dizziness, Fainting spells, Swelling in the ankles, Chest pain, Prolonged hiccoughing, Increased palpitations (irregular heartbeat), Calf discomfort, Uncontrolled pain Home Medications: Medications to take at Discharge Loperamide [Imodium] 2 mg PO BID PRN 03/07/18 Ergocalciferol [Vitamin D] 50,000 unit PO QWEEK 03/10/20 Ferrous Sulfate [Iron] 325 mg PO DAILY 03/10/20 Calcitriol [Rocaltrol] 0.25 mcg PO DAILY 05/21/20 Carisoprodol [Soma] 350 mg PO DAILY 05/21/20 Dicyclomine HCl 20 mg PO TIDCM 05/21/20 Multivitamins,Therapeutic [Multivitamin] 1 tab PO DAILY 05/21/20 Amlodipine [Norvasc] 5 mg PO DAILY #30 tab 07/10/20 Glipizide 5 mg PO BREAKFAST #30 tablet 07/10/20 Losartan Potassium [Cozaar] 50 mg PO DAILY #30 tablet 07/10/20 Pantoprazole Sodium [Protonix] 40 mg PO BID #60 tab 07/10/20 Sucralfate [Carafate] 1 gm PO 1HR_ACHS #120 tablet 07/10/20 Following Prescriptions Were Given to Patient: Sucralfate [Carafate] 1 gm PO 1HR_ACHS #120 tablet Transmission Status: Received by [facility] Losartan Potassium [Cozaar] 50 mg PO DAILY #30 tablet Transmission Status: Received by [facility] Glipizide 5 mg PO BREAKFAST #30 tablet Transmission Status: Received by [facility] Amlodipine [Norvasc] 5 mg PO DAILY #30 tab Transmission Status: Received by [facility] Pantoprazole Sodium [Protonix] 40 mg PO BID #60 tab Transmission Status: Received by [facility] Primary Care Physician: John Castillo MD [Primary Care Provider] - Please follow up with your Primary Care Physician in: in 1-2 weeks Please Follow Up With: Lilia Hook DO When: in 2 weeks Medical Necessity - Tobacco Use Smoking Status: Never smoker Tobacco Use: Non-smoker Meaningful Use Info Meaningful Use Diagnoses (Choose all that apply): None applicable Inpatient E&M: [id number] [facility]
--- NOTE | 2020-07-10 09:37 | CASEMGMT ---
Palliative screening tool completed for Lace/Strata 3. Patient meets criteria and hospitalist updated. Hospitalist spoke with patient and patient declined palliative referral. No referral at this time per hospitalist.
--- NOTE | 2020-07-13 15:19 | CASEMGMT ---
RN CM Discharge Follow-up Phone Call: JAMES: 11 Strata: 3 Call Date: 07/13/20 Discharge Date: 07/10/20 Time of Call: 1520 Duration: 1 min Admitting Diagnosis: Covid Pna, mild hypoxia RN CM attempted to complete follow-up phone call after recent hospitalization. No answer, voice message left with return contact information.
== END 2020-07-10 11:50 | disposition home or self-care (01) | DRG 137 ==
LOC: ED 13:13 → ICU 14:23
PROVIDERS: Admitting Provider Family Medicine; Emergency Provider Emergency Medicine; PCP Family Medicine; Visit Provider Internal Medicine
DX: U07.1 COVID-19 (principal); J12.82 Pneumonia due to coronavirus disease 2019; N17.9 Acute kidney failure, unspecified; D63.1 Anemia in chronic kidney disease; N18.4 Chronic kidney disease, stage 4 (severe); E11.22 Type 2 diabetes mellitus with diabetic chronic kidney disease; E11.42 Type 2 diabetes mellitus with diabetic polyneuropathy; E78.5 Hyperlipidemia, unspecified; E66.9 Obesity, unspecified; K21.9 Gastro-esophageal reflux disease without esophagitis; G89.4 Chronic pain syndrome; I12.9 Hypertensive chronic kidney disease with stage 1 through stage 4 chronic kidney disease, or unspecified chronic kidney disease; G47.33 Obstructive sleep apnea (adult) (pediatric); D50.9 Iron deficiency anemia, unspecified; I87.2 Venous insufficiency (chronic) (peripheral); Z86.14 Personal history of Methicillin resistant Staphylococcus aureus infection; K92.2 Gastrointestinal hemorrhage, unspecified; E43 Unspecified severe protein-calorie malnutrition; Z68.38 Body mass index [BMI] 38.0-38.9, adult
CPT/HCPCS: 71045; 80048; 80053; 80076; 82274; 82728; 82962; 83605; 83615; 83690; 83735; 83880; 84145; 84484; 85014; 85018; 85025; 85379; 85610; 85730; 86140; 87449; 87633; 93970; 97802; 99251; 99284; J7030; J7050; M0239; A4216; G0463; J2405; J2916; Q0240

== ENCOUNTER → 2020-10-23 10:02 | Outpatient (CLI) | payer MEDICARE, MEDICAID, SELFPAY ==
[2020-08-13 13:15] VITALS: BMI 39.4
--- NOTE | 2020-10-23 10:15 | RAD_ITS ---
STUDY: X-RAY - LUMBOSACRAL SPINE REASON FOR EXAM: Female, 55 years old. Back pain TECHNIQUE: 6 view(s) of the lumbosacral spine were obtained including flexion and extension and oblique views.. COMPARISON: Comparison is made with prior study dated 08/19/2019. FINDINGS: Normal lumbar lordosis. There is no substantial scoliosis. There is normal alignment of the vertebrae. Normal vertebral bodies and endplates. Mild degree of disc space narrowing at the L4-L5 level. There is partial sacralization of the L5 vertebrae. Facet joint osteoarthritis. Stable compression fracture of the T11 vertebrae. Normal bilateral sacral ala, sacroiliac joints, and visualized sacrum. Once again, surgical clips are seen in the right lower abdomen and right hemipelvis. RAD/L/S Spine w Bend Min 6 Vw IMPRESSION: Degenerative changes of the spine, as detailed above. Electronically Signed: Mauro Gannon MD at 15:07 EDT , Service support ,
== END ==
PROVIDERS: PCP Family Medicine; Referring Provider Family Medicine; Visit Provider Family Medicine
DX: M54.9 Dorsalgia, unspecified (principal)
CPT/HCPCS: 72114

== ENCOUNTER → 2020-11-09 20:00 | Outpatient (CLI) | payer MEDICARE, MEDICAID, SELFPAY ==
[2020-08-04 12:55] VITALS: BMI 39.4
== END ==
PROVIDERS: PCP Family Medicine; Visit Provider Internal Medicine Critical Care Medicine
DX: G47.33 Obstructive sleep apnea (adult) (pediatric) (principal)
CPT/HCPCS: 95811

== ENCOUNTER 2020-11-30 09:30 | Outpatient (RCR) | payer MEDICARE, MEDICAID, SELFPAY ==
[2020-08-13 13:15] VITALS: BMI 39.4
[2020-11-04 08:07] VITALS: BMI 37.2
--- NOTE | 2020-11-05 12:54 | HP.PTEVAL ---
Patient's Visit Information DORIS EDWARD is a 55 year old F referred to Physical Therapy by Dr. John Castillo MD with a diagnosis of LUMBAR DDD. Date of Evaluation: 11/05/20 Physical Therapist: Thuan Page, PT, Cert MDT, OCS - Visit Plan Frequency: 2x /Week Duration: 4 Weeks Plan: PRECAUTION: LATEX ALLERGY. PT INTERVETIONS DLS,POSTURAL EX'S ,LE FLEXABILITY ,STRENGTHNING AND MODALTIES - Subjective This 55 y/o female presents to physical therapy with lumbar pain. Patient has had lumbar pain several years. Patient had incident falling down hill fracture left fibula. Seen Dr Castillo x-rays DDD and MEDS Soma muscle relaxer. Location of pain right lumbar. Aggravating factors walking ,standing with cooking ,stairs ,bending and lifting. Alleviating factors hot shower. Coughing/sneezing-. Bowel/bladder -. Denies paresthesia/tingling. Patient pain affects QOL and function. Patient recently had kidney transplant My and DVT right leg.. Patient pain affects ability to perform housework tasks. AALERGEY: LATEX. SOCIAL: single. VOCATION: disablity - Pain Right Back Pain Intensity (Out of 10): 8 Pain Intensity Range: 10 - Objective POSTURE: mild forward posture. PALAPATION: tender right LS. NEURO: denies paresthesia/tingling, reflexes L3-4,L4-5,L5-S1 1/3. MMT: quads/hams 4/5,hip flexion 4-/5,hip abduction 3+/5 ,ankle 4/5. SYMMTRIES: align. LUMBAR ROM: flexion WFL ,extension min loss, side glides min loss - Special Tests L/S Slump test left side: Negative L/S Slump test right side: Negative L/S Left Straight Leg Raise: Negative L/S Right Straight Leg Raise: Negative - Balance/Special Test Scores Oswestry Low Back Score: 36 - Goals Goal 1:: I with HEP Goal Time Frame: 4-6 Weeks Goal 2:: Improve posture for ADL'S Goal Time Frame: 4-6 Weeks Goal 3:: lumbar pain by 50% or > to improve function Goal Time Frame: 4-6 Weeks Goal 4:: Patient to improve lumbar ROM for function of recovery Goal Time Frame: 4-6 Weeks Goal 5:: Patient to improve back owestry score by 5 points or > to improve QOL Goal Time Frame: 4-6 Weeks - Rehabilitation Potential Physical Therapy Diagnosis: This patient has right lumbar pain with decrease strength ,deconditioned pain with movement testing along with comorbities with kidney transplant thus benifit from skilled PT. Rehabilitation Potential: Good - Anticipated Interventions Patient/Client Instruction: Educate patient on: Condition, Plan of Care For the Purpose of:: To decrease pain, To increase ROM, To increase tolerance to activity/condition/position, To improve performance and independence with ADL's, To improve ability of physical actions for home/community/work/leisure, To improve health of tissue, To decrease soft tissue restriction, To increase flexibility/ROM, To reduce risk of recurrence, To improve ability to perform tasks related to life management Therapeutic Exercise to Include: Strength training, Body mechanics, Postural training, Active ROM For the Purpose of:: To decrease pain, To improve muscle performance and motor function, To improve ability to perform ADL's, To increase tolerance to activity/condition/position, To improve performance and independence with ADL's, To improve ability of physical actions for home/community/work/leisure, To improve health of tissue, To decrease soft tissue restriction, To increase flexibility/ROM, To reduce risk of recurrence, To improve ability to perform tasks related to life management TENS: Yes IF ES: Yes Cryotherapy (ice pack, ice massage): Yes Thermo therapy (hot pack): Yes Ultrasound (thermal/non thermal): Yes For the Purpose of:: To decrease pain, To increase ROM, To improve health of tissue, To decrease soft tissue restriction, To reduce risk of recurrence, To improve ability to perform tasks related to life management Thank you for the opportunity to evaluate your patient. For Medicare and Medicare HMO plans, please review the plan of care and approve it. It will need to be FAXED BACK to us at [phone] for Medicare purposes. For Medicare only, by signing this I certify the plan of care. Please let me know if there are questions or concerns regarding this plan of care. Physician Signature: Date:
--- NOTE | 2021-01-25 16:39 | HP.PT.NRP ---
DORIS EDWARD was seen in my office for initial evaluation on 11/05/20. The following Plan of Care was established for this patient: Initial Frequency: 2x /Week Initial Duration: 4 Weeks Patient/Client Instruction: Educate patient on: Condition, Plan of Care For the Purpose of:: To decrease pain, To increase ROM, To increase tolerance to activity/condition/position, To improve performance and independence with ADL's, To improve ability of physical actions for home/community/work/leisure, To improve health of tissue, To decrease soft tissue restriction, To increase flexibility/ROM, To reduce risk of recurrence, To improve ability to perform tasks related to life management Therapeutic Exercise to Include: Strength training, Body mechanics, Postural training, Active ROM For the Purpose of:: To decrease pain, To improve muscle performance and motor function, To improve ability to perform ADL's, To increase tolerance to activity/condition/position, To improve performance and independence with ADL's, To improve ability of physical actions for home/community/work/leisure, To improve health of tissue, To decrease soft tissue restriction, To increase flexibility/ROM, To reduce risk of recurrence, To improve ability to perform tasks related to life management TENS: Yes IF ES: Yes Cryotherapy (ice pack, ice massage): Yes Thermo therapy (hot pack): Yes Ultrasound (thermal/non thermal): Yes For the Purpose of:: To decrease pain, To increase ROM, To improve health of tissue, To decrease soft tissue restriction, To reduce risk of recurrence, To improve ability to perform tasks related to life management This patient was last seen in our office . Pertinent comments regarding their Physical therapy will appear below: Patient was seen for PT for back pain. Symptoms not getting better thus RTD At this point I will be discontinuing this patient from physical therapy. I would be happy to see this patient again in the future if found appropriate by the physician. Thank you! Thuan Page, PT, Cert MDT, OCS Balance/Gait/Functional tests - Balance/Special Test Scores Oswestry Low Back Score: 31
== END 2020-11-30 19:00 | disposition home or self-care (01) ==
LOC: PT 09:30
PROVIDERS: PCP Family Medicine; Visit Provider Family Medicine
DX: M51.36 Other intervertebral disc degeneration, lumbar region (principal)
CPT/HCPCS: 97035; 97110; 97162

== ENCOUNTER → 2021-02-02 09:08 | Outpatient (CLI) | payer MEDICARE, MEDICAID, SELFPAY ==
--- NOTE | 2021-02-03 14:28 | PFT ---
INTRODUCTION: The patient is a 55-year-old female that presents for pulmonary function studies secondary to a diagnosis of shortness of breath. Respiratory therapy reported good patient effort. Bronchodilators were used during testing. INTERPRETATION: Forced expiration spirometry demonstrates no evidence of a large airways obstructive ventilatory defect. There was no significant response to aerosolized bronchodilators. Spirograms are of good quality and plateau normally. Body plus tomography was performed and revealed a decreased TLC to 4.07 L, 78% of predicted, indicative of a mild restrictive ventilatory impairment. Diffusing capacity by single breath CO is at the lower limits of normal. IMPRESSION: Mild restrictive ventilatory impairment with diffusing capacity at the lower limits of normal.
== END ==
PROVIDERS: PCP Family Medicine; Referring Provider Nurse Practitioner Acute Care; Visit Provider Nurse Practitioner Acute Care
DX: R06.02 Shortness of breath (principal)
CPT/HCPCS: 94060; 94726; 94729

== ENCOUNTER → 2021-02-04 12:51 | Outpatient (CLI) | payer MEDICARE, MEDICAID, SELFPAY ==
[2021-02-04 13:27] VITALS: PULSE 101; PULSE 102; PULSE 78; PULSE 88; PULSE 93; PULSE 95; PULSE 98; O2SAT 90; O2SAT 91; O2SAT 92; O2SAT 93; O2SAT 95; O2SAT 96; O2SAT 97
--- NOTE | 2021-02-05 07:35 | WT_ITS ---
PSN 6 Minute Walk Test 6 Minute Walk Test 6 Minute Walk Test: 6 Minute Walk Test PSN:6-Minute Walk Test Start: 02/04/21 13:26 Freq: Status: Active Protocol: [id number] Document 02/04/21 13:27 [facility] (Rec: 02/04/21 13:31 [facility] [id number]) 6 Minute Walk Test Date Performed 02/04/21 Time Performed 13:00 Height 5 ft 5 in Weight: 98.883 kg Weight in Pounds 218.[address]: Skyla Assistive device used: None Pre-test Oxygen Delivery Method Room Air Pulse Ox (%) 96 Pulse Rate (60-100 beats/min) 78 Dyspnea Lori Scale (0-10) 0 Exertion Lori Scale (6-20) 6 1st minute Oxygen Delivery Method Room Air Pulse Ox (%) 95 Pulse Rate (60-100 beats/min) 95 2nd minute Oxygen Delivery Method Room Air Pulse Rate (60-100 beats/min) 93 Dyspnea Lori Scale (0-10) 90 3rd minute Oxygen Delivery Method Room Air Pulse Ox (%) 93 Pulse Rate (60-100 beats/min) 95 4th minute Oxygen Delivery Method Room Air Pulse Ox (%) 91 Pulse Rate (60-100 beats/min) 102 H 5th minute Oxygen Delivery Method Room Air Pulse Ox (%) 92 Pulse Rate (60-100 beats/min) 98 6th minute Oxygen Delivery Method Room Air Pulse Ox (%) 90 Pulse Rate (60-100 beats/min) 101 H Dyspnea Lori Scale (0-10) 0.5 Exertion Lori Scale (6-20) 8 Post-test Oxygen Delivery Method Room Air Pulse Ox (%) 97 Pulse Rate (60-100 beats/min) 88 Full Laps Walked 20 Partial Lap, Number of Tiles Walked 0 Total Distance Walked (ft) 1180 Interpretation Interpretation: The patient ambulated 1180 feet over the course of 6 minutes beginning on room air without assistive devices. Pretesting oxygen saturation was noted to be 96% on room air. With ambulation, the tutu oxygen saturation was 90%. This represents a significant exertional oxygen desaturation. Recommendations Recommendations: There is no indication for the use of supplemental oxygen at this time. However, close interval follow-up is recommended, given the degree of oxygen desaturation noted during the study.
== END ==
PROVIDERS: PCP Family Medicine; Referring Provider Nurse Practitioner Acute Care; Visit Provider Nurse Practitioner Acute Care
DX: R06.02 Shortness of breath (principal)
CPT/HCPCS: 94618

== ENCOUNTER → 2021-03-10 18:07 | Outpatient (CLI) | payer MEDICARE, MEDICAID, SELFPAY | PROVIDERS: PCP Family Medicine; Referring Provider Family Medicine; Visit Provider Family Medicine | DX: J31.0 Chronic rhinitis (principal) | CPT/HCPCS: 87635; U0005; U0003 ==

== ENCOUNTER 2021-04-15 12:39 | Outpatient (CLI) | payer MEDICARE, MEDICAID, SELFPAY ==
--- NOTE | 2021-04-15 12:45 | BI_ITS ---
MAMMOGRAPHY - BILATERAL SCREENING REASON FOR EXAM: Female, 55 years old. Routine annual screening examination. PERTINENT HISTORY: Non-contributory. TECHNIQUE: Digital bilateral breast carlos manuel (3D mammographic acquisition) in the CC and MLO projections. 2-D mediolateral oblique (MLO) and craniocaudad (CC) views of both breasts were obtained. CAD: Full Field Digital Mammography with Computer Added Detection was performed. COMPARISON: Comparison is made with prior study dated 04/14/2020. FINDINGS: Breast Composition: The breasts are almost entirely fatty. There are no dominant masses or suspicious calcifications. No other significant abnormalities are identified. There has been no significant change since the prior study. BI/SCRN MAMM (CAD)W/CARLOS MANUEL BILAT IMPRESSION: Stable bilateral screening mammogram. Yearly follow-up mammogram recommended. (A) ASSESSMENT CATEGORY: BIRADS Category 1: Negative. A letter regarding these results will be sent to the patient by the facility within 30 days. Approximately 10% of breast cancers are not detected by mammography. A normal mammogram should not delay biopsy of a clinically suspicious abnormality. [id number] Electronically Signed: Mauro Gannon MD at 13:42 EST , Service support ,
== END 2021-04-15 23:59 | disposition short-term general hospital (02) ==
LOC: OPBI 12:40
PROVIDERS: PCP Family Medicine; Referring Provider Family Medicine; Visit Provider Family Medicine
DX: Z12.31 Encounter for screening mammogram for malignant neoplasm of breast (principal)
CPT/HCPCS: 77063; 77067

== ENCOUNTER 2021-07-19 17:56 | Inpatient (IN) | payer MEDICARE, MEDICAID, SELFPAY ==
[2021-07-19] VITALS (8 sets, daily range): BP systolic 136–167; BP diastolic 75–92; PULSE 93–111; RESP 18–36; TEMP 36.2–37; O2SAT 77–102; BMI 37.0; BMI 38.1
--- NOTE | 2021-07-19 19:34 | RAD_ITS ---
STUDY: X-RAY CHEST REASON FOR EXAM: Female, 56 years old. CHEST PAIN sob TECHNIQUE: XR Chest 1 View COMPARISON: 4.7. FINDINGS: There is no demonstrated pleural abnormality. There is bilateral infiltrate. There is borderline cardiomegaly. Normal mediastinum and libby. Normal visualized pulmonary arteries. There is atherosclerotic calcification of the aortic arch with tortuosity. There are diffuse degenerative changes of the visualized thoracic spine. There is degenerative osteoarthritis of the bilateral shoulders. There is no demonstrated abnormality of the visualized soft tissue structures of the upper abdomen. RAD/Chest 1 View (Portable) IMPRESSION: There is bilateral infiltrate. Electronically Signed: Amilcar Isaac MD at 19:48 EDT ,
--- NOTE | 2021-07-19 19:36 | EKG12_ITS ---
Test Reason : DYSRHYTHMIA Blood Pressure : / mmHG Vent. Rate : 106 BPM Atrial Rate : 106 BPM P-R Int : 154 ms QRS Dur : 082 ms QT Int : 350 ms P-R-T Axes : 040 -01 065 degrees QTc Int : 464 ms Sinus tachycardia Low voltage QRS (Limb Leads) Nonspecific ST-segment abnormality Confirmed by MADAN HARO, ORVILLE ([id number]), film and video editor RIGO LEZAMA ([id number]) on 07/20/2021 9:00:51 AM Referred By: ALEX Confirmed By:ORVILLE HAGER MD
--- NOTE | 2021-07-19 19:38 | EX.ED.DYSGE1 ---
HPI History of Present Illness Chief Complaint: General Illness Narrative Narrative: 56-year-old female presenting with shortness of breath, body aches, chills. She states that start about a week and a half ago. She was seen by her primary care physician's partner who told her she was having muscle spasms. She presents today hypoxic. She has not lost her taste or smell but has a decreased appetite. She does not know if she had a fever. No nausea or vomiting. Patient states that she had COVID-19 last year in June and had a renal transplant in July. She had a right kidney transplanted. She is on tacrolimus, prednisone 5 mg daily, mycophenolate Mofetil.her renal transplant was at [facility]. She states she called them and they told her to come to [place] emergency department and stated that it probably was not due to her kidneys. Patient had a recent biopsy of her kidney which showed that it was doing well. [facility] Medical History Cellulitis of toe of left foot Chronic renal insufficiency, stage IV (severe) Chronic ulcer of left foot with necrosis of muscle Chronic ulcer of right great toe with fat layer exposed Delayed wound healing Diabetes mellitus type 2, uncontrolled Diabetes mellitus with polyneuropathy Diabetic foot ulcer Diabetic neuropathy Diabetic ulcer of left great toe Diarrhea in adult patient (~02/2016) Edema of left lower extremity Gait instability GERD (gastroesophageal reflux disease) History of amputation of hallux Hypertension Iron deficiency anemia Malnutrition MRSA (methicillin resistant staph aureus) culture positive Osteomyelitis of ankle or foot Puncture wound of toe of left foot Vaginal candidiasis Venous insufficiency Home Medications loperamide 2 mg PO BID PRN 03/07/18 [History Last Taken 07/06/20] ferrous sulfate 325 mg PO DAILY 03/10/20 [History Last Taken 07/07/20] carisoprodol 350 mg PO DAILY 05/21/20 [History Last Taken Unknown] multivitamin 1 tab PO DAILY 05/21/20 [History Last Taken Unknown] glipizide 5 mg PO BREAKFAST #30 tablet 07/10/20 [Rx Last Taken Unknown] loratadine 10 mg tablet 10 mg PO DAILY tab 08/13/20 [History Last Taken Unknown] amlodipine 5 mg tablet 5 mg PO DAILY tab 11/04/20 [History Last Taken Unknown] aspirin 81 mg tablet,delayed release 81 mg PO DAILY tab 11/04/20 [History Last Taken Unknown] calcitriol 0.25 mcg capsule 0.25 mcg PO TID cap 11/04/20 [History Last Taken Unknown] fluticasone propionate 220 mcg/actuation HFA aerosol inhaler 2 puff INHALATION BID #12 g 11/04/20 [Rx Last Taken Unknown] furosemide 40 mg tablet 40 mg PO DAILY tab 11/04/20 [History Last Taken Unknown] magnesium chloride 71.5 mg (magnesium chloride) tablet,delayed release 71.5 mg PO DAILY tab 11/04/20 [History Last Taken Unknown] mycophenolate mofetil 250 mg capsule 750 mg PO BID cap 11/04/20 [History Last Taken Unknown] omeprazole 20 mg capsule,delayed release 40 mg PO BID cap 11/04/20 [History Last Taken Unknown] prednisone 5 mg tablet 7.5 mg PO DAILY tab 11/04/20 [History Last Taken Unknown] semaglutide 0.25 mg SUBCUT QWEEK ml 11/04/20 [History Last Taken Unknown] sucralfate 1 gram tablet 1 g PO BID 11/04/20 [History Last Taken Unknown] tacrolimus 1 mg capsule, immediate-release 1 mg PO DAILY cap 11/04/20 [History Last Taken Unknown] biotin 10,000 mcg capsule 10,000 mcg PO DAILY cap 01/11/21 [History Last Taken Unknown] albuterol sulfate 90 mcg/actuation aerosol inhaler 2 puff INHALATION Q6H PRN #8.5 g 04/19/21 [Rx Last Taken Unknown] Allergy/AdvReac Type Severity Reaction Status Date / Time Latex, Natural Rubber Allergy Severe Rash Verified 07/19/21 17:58 Penicillins Allergy Severe Swelling Verified 07/19/21 17:58 lactose AdvReac Severe Diarrhea Verified 07/19/21 17:58 Family History Mother Diabetes Heart disease Hypertension Father Diabetes Heart disease Hypertension Brother Diabetes Hypertension Heart disease Surgical History Amputated toe H/O: hysterectomy History of section History of colonoscopy (~02/2016) History of esophagogastroduodenoscopy (EGD) Hx of cardiac catheterization Kidney transplant recipient S/P laparoscopic cholecystectomy (~06/2018) Social History Smoking Status: Never smoker second hand exposure: No alcohol intake: never substance use type: does not use caffeine: No what type of physical activity do you participate in: none frequency: does not exercise ROS ROS ED Constitutional Constitutional ED: Reports chills and subjective Eyes Eyes: Denies blurry vision or diplopia ENT ENT ED: Reports rhinorrhea Cardiovascular Cardiovascular: Reports chest pain Respiratory/Chest Respiratory/Chest: Reports cough, dyspnea and dyspnea on exertion Gastrointestinal Gastrointestinal: Reports nausea; Denies abdominal pain, diarrhea or vomiting Genitourinary Genitourinary ED: Denies dysuria or hematuria Musculoskeletal Musculoskeletal: Reports back pain and myalgias; Denies arthralgias or neck pain Integumentary Denies rash Neurologic Neurologic: Reports headache(s); Denies paresthesias or weakness EXAM Physical Exam Const Vital Signs: 07/19/21 17:57 07/19/21 18:50 07/19/21 18:59 Temperature 97.1 F L Temperature Source Temporal Pulse Rate 111 H Respiratory Rate 20 H 36 H Respiratory Effort Short of Breath Respiratory Depth Shallow Blood Pressure 167/79 H Blood Pressure Mean 108 Pulse Ox 86 77 Oxygen Delivery Method Room Air Room Air High Flow Oxygen Flow Rate (L/min) 12 10 07/19/21 19:38 07/19/21 20:49 07/19/21 21:35 Temperature Temperature Source Pulse Rate 104 H 93 Respiratory Rate 24 H 32 H Respiratory Effort Respiratory Depth Blood Pressure 137/75 H 160/86 H Blood Pressure Mean 95 110 Pulse Ox 94 95 102 Oxygen Delivery Method High Flow High Flow High Flow Oxygen Flow Rate (L/min) 10 10 10 Positive well nourished Constitutional Narrative: Speaking in full sentences. Noted to be on high flow oxygen. No respiratory distress. General Appearance ED: NAD; Negative for pallor HEENT Reports dry mucous membranes Negative for trauma Mouth ED: Yes dry mucous membranes Mouth: dry mucous membranes Eyes PERRL and EOMs intact bilaterally General Eye ED: Negative for pale conjunctiva or scleral icterus Neck no lymphadenopathy and supple Chest Wall inspection of chest normal Resp Auscultation: rales diffuse Cardio regular rhythm Rate: tachycardic GI normal to inspection, nondistended, normoactive bowel sounds Neuro oriented x3 and CN's II-XII intact bilaterally Sensorium / Orientation: alert Psych mental status grossly normal Skin no rashes or lesions noted General Skin Exam: Negative for jaundice or pallor MDM MDM MDM Narrative Medical decision making narrative: Patient presenting with hypoxia, chills, body aches. She reports this has been going on for about a week and a half. Patient does not usually require oxygen. She was initially put on 10 L and was weaned down to 8 L to maintain sats of 93%. Sepsis work-up was initiated. EKG shows sinus tachycardia with a ventricular rate of 106 bpm on my interpretation. Chest x-ray on my interpretation shows bilateral pneumonia. CBC shows a leukocytosis of 16.2. hemoglobin 9.7 however the patient has chronic kidney disease. Last comparison was from a year ago. No reported black or bloody stools. PT slightly prolonged at 50.8. INR 1.3. PTT 20.5. Creatinine actually is improved over her previous is now 1.29. Her GFR is actually improved as well is 46. Electrolytes within normal limits. Total bilirubin is normal. AST slightly elevated at 54 otherwise LFTs are normal lactic acid 2.0. High-sensitivity troponin is 8. Patient given IV fluids. With elevated white blood cell count, hypoxic respiratory failure, bilateral pneumonia patient treated with vancomycin, aztreonam, Levaquin after discussion with hospitalist. There was concern because she is immunocompromised. She states that her transplant team at [facility] told her she did not need to come to [facility]. ABG was drawn and patient was still slightly hypoxic on 8 L was turned up to 10. She does report that she uses CPAP at night. Patient transported to the floor in stable condition. Impression: 1. Hypoxic respiratory failure 2. Pneumonia 3. Leukocytosis 4. CKD 5. Anemia Lab Data Labs: Laboratory Results - last 24 hr 07/19/21 07/19/21 07/19/21 20:30 20:30 20:30 WBC 16.2 H RBC 3.78 L Hgb 9.7 L Hct 32.4 L MCV 85.7 MCH 25.7 L MCHC 29.9 L RDW Std Deviation 45.1 H RDW Coeff of Frank 14.5 Plt Count 319 MPV 11.2 Immature Gran % (Auto) 0.800 Neut % (Auto) 85.4 H Lymph % (Auto) 4.5 L Dillon % (Auto) 9.1 Eos % (Auto) 0.0 Baso % (Auto) 0.2 Absolute Neuts (auto) 13.9 H Absolute Lymphs (auto) 0.73 L Nucleated RBC % 0 PT 15.8 H INR 1.3 APTT 29.5 Sodium 135 L Potassium 4.0 Chloride 100 Carbon Dioxide 28.0 Anion Gap 7 BUN 20 H Creatinine 1.29 H Estim Creat Clear Calc 44.34 Est GFR (MDRD) Af Amer 55 L Est GFR (MDRD) Non-Af 46 L BUN/Creatinine Ratio 15.5 Glucose 301 H Lactic Acid Calcium 8.5 Total Bilirubin 0.60 AST 54 H ALT 44 Alkaline Phosphatase 73 Troponin I High Sens 8 Total Protein 6.6 Albumin 2.4 L Globulin 4.2 Albumin/Globulin Ratio 0.6 L 07/19/21 20:40 WBC RBC Hgb Hct MCV MCH MCHC RDW Std Deviation RDW Coeff of Frank Plt Count MPV Immature Gran % (Auto) Neut % (Auto) Lymph % (Auto) Dillon % (Auto) Eos % (Auto) Baso % (Auto) Absolute Neuts (auto) Absolute Lymphs (auto) Nucleated RBC % PT INR APTT Sodium Potassium Chloride Carbon Dioxide Anion Gap BUN Creatinine Estim Creat Clear Calc Est GFR (MDRD) Af Amer Est GFR (MDRD) Non-Af BUN/Creatinine Ratio Glucose Lactic Acid 2.0 Calcium Total Bilirubin AST ALT Alkaline Phosphatase Troponin I High Sens Total Protein Albumin Globulin Albumin/Globulin Ratio ABG Data ABG results: ABG 07/19/21 21:54 Specimen Type ART Sample Site L Radial pH 7.39 Bicarbonate Actual 26.4 H Total CO2 28 Base Excess 2 O2 Saturation 89 L ABG pCO2 43.3 ABG pO2 57 L Yao Test Positive O2 Delivery Device Cannula Liter Flow 8.0 Radiography Diagnostic Testing: Clinical Impression(s) from Imaging Studies Chest X-Ray 07/19/21 19:34 IMPRESSION: There is bilateral infiltrate. Electronically Signed: Amilcar Isaac MD at 19:48 EDT , Discharge Plan Triage Chief Complaint: General Illness ED Provider: Martín Rod Dx/Rx/DC Orders Prescriptions: No Action loratadine 10 mg tablet 10 mg PO DAILY RF: 0 mycophenolate mofetil 250 mg capsule 750 mg PO BID RF: 0 aspirin 81 mg tablet,delayed release (DR/EC) 81 mg PO DAILY RF: 0 amlodipine 5 mg tablet 5 mg PO DAILY RF: 0 furosemide 40 mg tablet 40 mg PO DAILY RF: 0 Slow-Mag 71.5 mg tablet,delayed release (DR/EC) 71.5 mg PO DAILY RF: 0 Ozempic 0.25 mg or 0.5 mg(2 mg/1.5 mL) pen injector 0.25 mg subcut QWEEK RF: 0 tacrolimus 1 mg capsule 1 mg PO DAILY RF: 0 prednisone 5 mg tablet 7.5 mg PO DAILY RF: 0 sucralfate [Carafate] 1 gram tablet 1 g PO BID RF: 0 Flovent HFA 220 mcg/actuation HFA aerosol inhaler 2 puff inhalation BID Qty: 12 RF: 6 biotin 10,000 mcg capsule 10,000 mcg PO DAILY RF: 0 loperamide 2 MG capsule 2 mg PO BID PRN (Reason: Diarrhea) RF: 0 ferrous sulfate 325 MG tablet 325 mg PO DAILY RF: 0 multivitamin 1 TABLET tablet 1 tab PO DAILY RF: 0 carisoprodol 350 MG tablet 350 mg PO DAILY RF: 0 omeprazole 20 mg capsule,delayed release(DR/EC) 40 mg PO BID RF: 0 calcitriol 0.25 mcg capsule 0.25 mcg PO TID RF: 0 glipizide 10 MG tablet 5 mg PO BREAKFAST Qty: 30 RF: 0 albuterol sulfate 90 mcg/actuation HFA aerosol inhaler 2 puff inhalation Q6H PRN (Reason: shortness of breath or wheezing) Qty: 8.5 RF: 6 Primary Care Provider: John Castillo
--- NOTE | 2021-07-19 19:51 | ED.RN ---
SPOKE WITH [facility] IN LAB. INFORMED THEM THAT PT. HAD MULTIPLE ATTEMPTS AT IV AND LAB DRAW, WHICH WAS UNSUCCESSFUL IN OBTAINING LAB WORK AN THAT THEY WOULD NEED TO COME UP AND DRAW LABS.
[2021-07-19] MEDS: Ondansetron 4 MG/2 ML Vial IV (20:48)
[2021-07-19 20:50] LABS: Absolute Lymphocyte Count 0.73 X10^3/uL (0.83-4.51); Absolute Neutrophil Count 13.9 X10^3/uL (2.0-7.7); Basophil# 0.03 X10^3/uL; Basophil% 0.2 % (0-1); Hematocrit 32.4 % (37-47); Hemoglobin 9.7 g/dL (12.0-15.0); Lymphocyte # 0.73 X10^3/ul (0.83-4.51); Lymphocyte % 4.5 % (19-41); Mean Corp Hgb Conc 29.9 g/dL (32-36); Mean Corpuscular Hgb 25.7 pg (27.0-32.0); Mean Corpuscular Volume 85.7 fL (81-99); Mean Platelet Vol. 11.2 fl (6.2-12.0); Monocyte# 1.48 X10^3/uL; Monocyte% 9.1 % (0-10); NRBC Flagged by Analyzer 0 % (0-5); Neutrophil # 13.87 X10^3/uL (2.7-7.7); Neutrophil % 85.4 % (47-70); Platelet Count 319 K/mm3 (150-450); RBC Distribution Width CV 14.5 % (11.6-14.6); RBC Distribution Width SD 45.1 fl (35.1-43.9); Red Blood Count 3.78 M/mm3 (4.2-5.4); White Blood Count 16.2 K/mm3 (4.4-11.0)
[2021-07-19 21:06] LABS: International Normalized Ratio 1.3; Prothrombin Time (Protime)PT. 15.8 SECONDS (11.7-14.9)
[2021-07-19 21:07] LABS: Partial Thromboplast Time 29.5 Seconds (24.1-36.2)
[2021-07-19 21:09] LABS: ALB/GLOB Ratio 0.6 RATIO (0.9-2.4); AST(SGOT) 54 U/L (15-37); Alanine Aminotransfer ALT/SGPT 44 U/L (13-56); Albumin, Serum 2.4 g/dL (3.2-5.0); Alkaline Phosphatase 73 U/L (45-117); Anion Gap 7 (5-15); BUN 20 mg/dL (7-18); BUN/Creat Ratio 15.5 RATIO (10-20); Calcium,Total 8.5 mg/dL (8.5-10.1); Chloride 100 mmol/L (98-107); Creatinine, Serum 1.29 mg/dL (0.55-1.02); EST Glomerular Filtration Rate 46 mL/min (>60); Est Glom Filt Rate - Afr Amer 55 mL/min (>60); Estimated Creatinine Clearance 44.34 ml/min; Globulin 4.2 g/dL (2.2-4.2); Glucose 301 mg/dL (74-106); Protein, Total 6.6 g/dL (6.4-8.2); Sodium Level 135 mmol/L (136-145); Troponin-I HS 8 pg/mL (3.0-54.0)
[2021-07-19 22:01] LABS: Allen Test Positive; Base Excess 2 mmol/L (-2 to +2); Bicarbonate 26.4 mmol/L (22-26); Blood Gas Specimen Type ART; O2 Delivery Device Cannula; PO2 57 mmHG (75-100); SITE L Radial; SO2 89 % (95-99); Total Carbon Dioxide 28 mmol/L; pCO2 43.3 mmHg (35-45); pH 7.39 (7.35-7.45)
[2021-07-19] MEDS: levoFLOXacin IV 750 MG/150 ML BAG 100 MG IV (22:08)
--- NOTE | 2021-07-19 22:22 | PCM.HP.STD ---
[facility] - General General Date of Admission: 07/19/21 HPI Narrative DORIS EDWARD, is a 56 F with a significant history of right kidney transplants secondary to kidney failure from diabetes mellitus; IB and on transplant rejection medications; obstructive sleep apnea but noncompliant with home CPAP who presents to the emergency department with a 1-1/2-week history of progressively worsening malaise. Associated with her symptoms is anorexia, decreased p.o. intake; diarrhea; lethargy; shortness of breath; and dry cough. Because she has pain with coughing; she tries not to cough. She denies fever. She reports chills. Night before presentation her blood glucose was 515. She called the on-call center team leader for her PCP and she was instructed to take 40 units of her Lantus insulin to 20 units that she takes every night. She is concerned that even though she has not been eating for a couple of days her blood glucose has been high. She reports fatigue. She denies orthopnea; or proximal nocturnal dyspnea She reports neck pain and upper back pain going to her chest. She saw an on-call center team leader for his PCP who told her (patient) that she has muscle spasms so she went for a massage. In regards to her diarrhea she report that she has IBS but her diarrhea was worse a day before presentation. Her diarrhea is back to her baseline. She reports nausea and vomiting on the day of presentation [facility] Medical History Cellulitis of toe of left foot Chronic renal insufficiency, stage IV (severe) Chronic ulcer of left foot with necrosis of muscle Chronic ulcer of right great toe with fat layer exposed Delayed wound healing Diabetes mellitus type 2, uncontrolled Diabetes mellitus with polyneuropathy Diabetic foot ulcer Diabetic neuropathy Diabetic ulcer of left great toe Diarrhea in adult patient (~02/2016) Edema of left lower extremity Gait instability GERD (gastroesophageal reflux disease) History of amputation of hallux Hypertension Iron deficiency anemia Malnutrition MRSA (methicillin resistant staph aureus) culture positive Osteomyelitis of ankle or foot Puncture wound of toe of left foot Vaginal candidiasis Venous insufficiency Home Medications loperamide 2 mg PO BID PRN 03/07/18 [History Last Taken 07/06/20] ferrous sulfate 325 mg PO DAILY 03/10/20 [History Last Taken 07/07/20] carisoprodol 350 mg PO DAILY 05/21/20 [History Last Taken Unknown] multivitamin 1 tab PO DAILY 05/21/20 [History Last Taken Unknown] glipizide 5 mg PO BREAKFAST #30 tablet 07/10/20 [Rx Last Taken Unknown] loratadine 10 mg tablet 10 mg PO DAILY tab 08/13/20 [History Last Taken Unknown] amlodipine 5 mg tablet 5 mg PO DAILY tab 11/04/20 [History Last Taken Unknown] aspirin 81 mg tablet,delayed release 81 mg PO DAILY tab 11/04/20 [History Last Taken Unknown] fluticasone propionate 220 mcg/actuation HFA aerosol inhaler 2 puff INHALATION BID #12 g 11/04/20 [Rx Last Taken Unknown] furosemide 40 mg tablet 40 mg PO DAILY tab 11/04/20 [History Last Taken Unknown] magnesium chloride 71.5 mg (magnesium chloride) tablet,delayed release 71.5 mg PO DAILY tab 11/04/20 [History Last Taken Unknown] mycophenolate mofetil 250 mg capsule 750 mg PO BID cap 11/04/20 [History Last Taken Unknown] omeprazole 20 mg capsule,delayed release 40 mg PO BID cap 11/04/20 [History Last Taken Unknown] prednisone 5 mg tablet 7.5 mg PO DAILY tab 11/04/20 [History Last Taken Unknown] semaglutide 0.25 mg SUBCUT QWEEK ml 11/04/20 [History Last Taken Unknown] sucralfate 1 gram tablet 1 g PO BID 11/04/20 [History Last Taken Unknown] tacrolimus 1 mg capsule, immediate-release 1 mg PO DAILY cap 11/04/20 [History Last Taken Unknown] biotin 10,000 mcg capsule 10,000 mcg PO DAILY cap 01/11/21 [History Last Taken Unknown] albuterol sulfate 90 mcg/actuation aerosol inhaler 2 puff INHALATION Q6H PRN #8.5 g 04/19/21 [Rx Last Taken Unknown] gabapentin 07/19/21 [History Last Taken Unknown] insulin glargine [Lantus Solostar U-100 Insulin] 10 unit SUBCUT 07/19/21 [History Last Taken Unknown] Allergy/AdvReac Type Severity Reaction Status Date / Time Latex, Natural Rubber Allergy Severe Rash Verified 07/19/21 17:58 Penicillins Allergy Severe Swelling Verified 07/19/21 17:58 lactose AdvReac Severe Diarrhea Verified 07/19/21 17:58 Family History Mother Diabetes Heart disease Hypertension Father Diabetes Heart disease Hypertension Brother Diabetes Hypertension Heart disease Surgical History Amputated toe H/O: hysterectomy History of section History of colonoscopy (~02/2016) History of esophagogastroduodenoscopy (EGD) Hx of cardiac catheterization Kidney transplant recipient S/P laparoscopic cholecystectomy (~06/2018) Social History Smoking Status: Never smoker second hand exposure: No alcohol intake: never substance use type: does not use caffeine: No what type of physical activity do you participate in: none frequency: does not exercise ROS ROS Narrative Pertinent positives and pertinent negatives as noted in HPI. All other systems were reviewed and are negative. Vital Signs Vital Signs Vital Signs: 07/19/21 17:57 07/19/21 18:50 07/19/21 18:59 Temperature 97.1 F L Temperature Source Temporal Pulse Rate 111 H Respiratory Rate 20 H 36 H Respiratory Effort Short of Breath Respiratory Depth Shallow Blood Pressure 167/79 H Blood Pressure Mean 108 Pulse Ox 86 77 Oxygen Delivery Method Room Air Room Air High Flow Oxygen Flow Rate (L/min) 12 10 07/19/21 19:38 07/19/21 20:49 07/19/21 21:35 Temperature Temperature Source Pulse Rate 104 H 93 Respiratory Rate 24 H 32 H Respiratory Effort Respiratory Depth Blood Pressure 137/75 H 160/86 H Blood Pressure Mean 95 110 Pulse Ox 94 95 102 Oxygen Delivery Method High Flow High Flow High Flow Oxygen Flow Rate (L/min) 10 10 10 Weight Weight: 101 kg Body Mass Index (BMI) 37.0 Physical Exam Narrative Physical exam: General: Well-nourished, well-developed. Head: Normocephalic, atraumatic, no tenderness Eyes: Vision is grossly intact. EOMI ENT, no trauma, moist mucous membranes, no rhinorrhea Neck: Nontender, full range of motion, no spinal tenderness, deformities, step-off CVS: Tachycardia; S1-S2 present. No murmur, gallop or rub. Respiratory : Tachypnea; rales bilateral, chest wall nontender, no wheezing Abdomen: Soft, nontender, nondistended, normal bowel sounds, no masses : Deferred Back: Nontender, no CVA tenderness, no midline spinal tenderness, deformities, step-offs Extremities: Nontender full range of motion, no trauma Skin: Normal color, no trauma, abrasions Neuro: Alert, oriented, cranial nerves II through XII grossly intact. Psychiatry: Normal mood. Normal affect. Not depressed. Not anxious. Results Lab / Micro Data Result Diagrams: 07/19/21 20:30 07/19/21 20:30 Labs: Laboratory Results - last 24 hr 07/19/21 20:30: Sodium 135 L, Potassium 4.0, Chloride 100, Carbon Dioxide 28.0, Anion Gap 7, BUN 20 H, Creatinine 1.29 H, Estim Creat Clear Calc 44.34, Est GFR (MDRD) Af Amer 55 L, Est GFR (MDRD) Non-Af 46 L, BUN/Creatinine Ratio 15.5, Glucose 301 H, Calcium 8.5, Total Bilirubin 0.60, AST 54 H, ALT 44, Alkaline Phosphatase 73, Troponin I High Sens 8, Total Protein 6.6, Albumin 2.4 L, Globulin 4.2, Albumin/Globulin Ratio 0.6 L 07/19/21 20:30: WBC 16.2 H, RBC 3.78 L, Hgb 9.7 L, Hct 32.4 L, MCV 85.7, MCH 25.7 L, MCHC 29.9 L, RDW Std Deviation 45.1 H, RDW Coeff of Frank 14.5, Plt Count 319, MPV 11.2, Immature Gran % (Auto) 0.800, Neut % (Auto) 85.4 H, Lymph % (Auto) 4.5 L, [place] % (Auto) 9.1, Eos % (Auto) 0.0, Baso % (Auto) 0.2, Absolute Neuts (auto) 13.9 H, Absolute Lymphs (auto) 0.73 L, Nucleated RBC % 0 07/19/21 20:30: PT 15.8 H, INR 1.3, APTT 29.5 07/19/21 20:40: Lactic Acid 2.0 Micro: Microbiology 07/19/21 19:50 Mucosa - Nasopharyngeal Influenza Types A,B Direct FA (MELVINA) - Final ABG Data ABG results: ABG 07/19/21 21:54 Specimen Type ART Sample Site L Radial pH 7.39 Bicarbonate Actual 26.4 H Total CO2 28 Base Excess 2 O2 Saturation 89 L ABG pCO2 43.3 ABG pO2 57 L Yao Test Positive O2 Delivery Device Cannula Liter Flow 8.0 Radiology Impression Chest X-Ray 07/19/21 19:34 IMPRESSION: There is bilateral infiltrate. Electronically Signed: Amilcar Isaac MD at 19:48 EDT Reading Location ID and State: [facility] / [place] , Service support , Assessment & Plan Assessment/Plan (1) Sepsis: QUALIFIERS: Acute respiratory failure type: with hypoxia Sepsis acute organ dysfunction status: with acute organ dysfunction Sepsis type: sepsis due to unspecified organism Severe sepsis acute organ dysfunction type: acute respiratory failure Severe sepsis shock status: without septic shock Qualified Code(s): A41.9 - Sepsis, unspecified organism; R65.20 - Severe sepsis without septic shock; J96.01 - Acute respiratory failure with hypoxia (2) Pneumonia: QUALIFIERS: Laterality: bilateral Lung location: unspecified part of lung Pneumonia type: due to unspecified organism Qualified Code(s): J18.9 - Pneumonia, unspecified organism PLAN: Sepsis secondary to pneumonia with acute hypoxemic respiratory failure Patient meets SIRS criteria with respiratory rate of more than 20; heart rate of more than 90; and WBC of more than 12. qSOFA score is 1 (respiratory rate of more equal to 22) Sofa score is 2 calculator with ABG showing PO2 of 56.5 on 8 liters of nasal cannula oxygen (about 49% FiO2). While at the emergency department her high flow nasal cannula oxygen was increased from 8 L to 10 L Chest x-ray was visualized and independently interpreted. Chest x-ray with bilateral infiltrate; I agree with radiologist interpretation PCR COVID is negative Rapid Influenza A&B is negative. Lactic acid:2.0 Albuterol as needed Legionella antigen screen and Strep antigen ordered Patient has angioedema with penicillins. Discussed with ED doctor who started patient on vancomycin; Aztreonam and Levaquin. Aztreonam and Levaquin will be continued. Tessalon perles ordered. Continue oxygen supplementation. PRN albuterol ordered Diabetes mellitus Patient with hyperglycemia on presentation Escalate home basal insulin. Continue glipizide. Accu-Chek QA [facility] with correction scale insulin ordered. Hypertension Blood pressure is not within goal Amlodipine continued. As needed hydralazine ordered. Trend blood pressure and adjust blood pressure medications. Obstructive sleep apnea CPAP with bleed oxygen in order nightly and as needed. DVT Prophylaxis: Subcutaneous lovenox ordered. Charges/Coding Visit Charges Inpatient E&M: 38879 Init Hosp L3
[2021-07-20] VITALS (16 sets, daily range): BP systolic 106–138; BP diastolic 72–86; PULSE 89–101; RESP 16–24; TEMP 36.7–37; O2SAT 90–96
[2021-07-20] MEDS: Tacrolimus Anhydrous 1 MG Capsule PO ×2 (00:17→21:32)
[2021-07-20] MEDS: Mycophenolate Mofetil 250 MG Capsule 750 MG PO ×3 (00:18→22:20)
[2021-07-20] MEDS: Insulin Glargine-YFGN 100 UNIT/ML Pen 25 UNIT SC ×2 (00:27→21:30)
[2021-07-20 00:35] LABS: Bedside Glucose 293 mg/dL (74-106)
[2021-07-20 00:46] LABS: Reflex Lactate? Y
[2021-07-20 01:19] LABS: Lactic Acid 1.5 mmol/L (0.4-1.9)
[2021-07-20 02:07] LABS: M R Staph aureus DNA By PCR Negative (Negative); Probe Check PASS; Specimen Processing Control PASS
[2021-07-20 02:35] LABS: Mucous, Urine 0 SEEN /hpf (<or=2+); Red Blood Cells-Urine 0 SEEN /hpf (0-5)
[2021-07-20 02:36] LABS: Color, Urine Yellow (Yellow); Glucose, Dipstick 250 mg/dl (Normal); Ketone-Dipstick 5 mg/dl (Negative); Leukocyte Esterase-Dipstick 100 /ul (Negative); Nitrite-Dipstick Negative (Negative); Occult Blood-Urine Negative /ul (Negative); Protein-Dipstick 100 mg/dl (Negative); Specific Gravity, Urine 1.025 (1.002-1.030); Urine Bilirubin Dipstick Negative (Negative); Urine Clarity Clear (Clear); Urine Urobilinogen Normal (Normal)
[2021-07-20 02:47] LABS: Bacteria 4+ /hpf (None Seen); Coarse Granular Cast 0-5 SEEN /lpf (0-5 /lpf); Squamous Epithelial Cells - UA 0-5 SEEN /hpf (5-10); White Blood Cells 5-10 SEEN /hpf (0-5)
[2021-07-20 02:48] LABS: Hyaline Cast 0-5 SEEN /lpf (0-5)
[2021-07-20 06:10] LABS: Absolute Lymphocyte Count 0.47 X10^3/uL (0.83-4.51); Absolute Neutrophil Count 10.4 X10^3/uL (2.0-7.7); Basophil# 0.03 X10^3/uL; Basophil% 0.2 % (0-1); Eosinophil# 0.02 X10^3/uL; Eosinophils% 0.2 % (0-5); Hemoglobin 9.2 g/dL (12.0-15.0); Lymphocyte # 0.47 X10^3/ul (0.83-4.51); Lymphocyte % 3.8 % (19-41); Mean Corp Hgb Conc 30.7 g/dL (32-36); Mean Corpuscular Hgb 25.6 pg (27.0-32.0); Mean Corpuscular Volume 83.6 fL (81-99); Mean Platelet Vol. 11.3 fl (6.2-12.0); Monocyte# 1.27 X10^3/uL; Monocyte% 10.3 % (0-10); NRBC Flagged by Analyzer 0 % (0-5); Neutrophil % 84.7 % (47-70); POSITIVE DIFFERENTIAL YES; Platelet Count 328 K/mm3 (150-450); RBC Distribution Width CV 14.4 % (11.6-14.6); RBC Distribution Width SD 43.8 fl (35.1-43.9); Red Blood Count 3.59 M/mm3 (4.2-5.4); White Blood Count 12.3 K/mm3 (4.4-11.0)
[2021-07-20 06:20] LABS: Differential Indicated SCAN CRITERIA MET
[2021-07-20 06:42] LABS: Differential Comment SCANNED
[2021-07-20 06:45] LABS: Bedside Glucose 267 mg/dL (74-106)
[2021-07-20 06:49] LABS: Anion Gap 6 (5-15); BUN 16 mg/dL (7-18); BUN/Creat Ratio 16.3 RATIO (10-20); Chloride 102 mmol/L (98-107); Creatinine, Serum 0.98 mg/dL (0.55-1.02); EST Glomerular Filtration Rate 63 mL/min (>60); Est Glom Filt Rate - Afr Amer 76 mL/min (>60); Estimated Creatinine Clearance 58.37 ml/min; Glucose 267 mg/dL (74-106); Potassium 3.9 mmol/L (3.5-5.1); Sodium Level 136 mmol/L (136-145)
[2021-07-20] MEDS: Gabapentin 300 MG Capsule PO ×2 (06:49→21:32)
[2021-07-20] MEDS: Insulin Lispro 100 UNIT/ML INSULN.PEN SC ×4 (06:49→21:27)
[2021-07-20] MEDS: Aspirin E.C. 81 MG Tablet PO (08:00)
[2021-07-20] MEDS: Ferrous Sulfate 325 MG Tablet PO (08:00)
[2021-07-20] MEDS: glipiZIDE 10 MG Tablet PO (08:01)
[2021-07-20] MEDS: Multivitamins,Therapeutic Tablet 1 TABLET PO (08:01)
[2021-07-20] MEDS: predniSONE 5 MG Tablet PO (08:01)
[2021-07-20] MEDS: Acetaminophen 325 MG Tablet 650 MG PO (08:04)
--- NOTE | 2021-07-20 08:07 | CPS ---
patient is not compliant with home cpap, and does refuses cpap while at hospital as well
--- NOTE | 2021-07-20 08:14 | CT_ITS ---
EXAM: CT ANGIOGRAPHY CHEST WITHOUT AND WITH INTRAVENOUS CONTRAST CLINICAL INDICATION: hypoxia TECHNIQUE: Helically acquired angiography images were obtained of the chest without and with intravenous contrast. This CT exam was performed using one or more of the following dose reduction techniques: automated exposure control, adjustment of the mA and/or kV according to patient size, and/or use of iterative reconstruction technique. This report was created using [employer] report generation technology. MIP reconstructed images were created and reviewed. CONTRAST: IV 100mL Isovue-370 RADIATION DOSE: CTDIvol = 13.65 mGy, DLP = 447.78 mGy-cm COMPARISON: CT chest without contrast 04/12/2017. FINDINGS: PULMONARY ARTERIES: Unremarkable. Normal in caliber. No evidence of pulmonary embolism. AORTA: Unremarkable. Normal in caliber. No evidence of dissection. GREAT VESSELS OF AORTIC ARCH: Unremarkable. Normal in caliber. No evidence of dissection. LUNGS AND PLEURAL SPACES: Atelectases with air bronchograms in the right posterior lower lobe. Subsegmental atelectases in the left lower lobe, left upper lobe, the right middle lobe, right upper lobe and right anterior lung base. Moderate bilateral posterior pleural fluid, right more than left. No mass. HEART: 2.2 cm thick right pericardial fluid and 1.9 cm thick left posterior pericardial fluid. These account for the enlarged cardiac silhouette. MEDIASTINUM: Unremarkable. No mediastinal or hilar adenopathy. Esophagus is unremarkable. No hiatal hernia. THYROID: Unremarkable. No thyroid lesions. BONES/JOINTS: Mild old compression fracture of the T11 superior endplate. No suspicious lytic or blastic abnormality. CT/CTA Chest W/WO Contrast IMPRESSION: 1. No CTA evidence of pulmonary thromboemboli, thoracic aortic aneurysm or dissection. 2. Right posterior lower lobe atelectases with air bronchograms. 3. Multiple subsegmental atelectatic changes in the left lower lobe, left upper lobe, right middle lobe, right upper lobe and right anterior lung base. 4. Moderate bilateral posterior pleural fluid, right more than left. 5. 2.2 cm thick right pericardial fluid and 1.9 cm thick left posterior pericardial fluid accounting for enlarged cardiac silhouette. 6. Minimal old central compression fracture of the T11 superior endplate. 7. The above are all new findings when compared to CT chest without contrast 04/12/2017. Electronically Signed: Crescencio Buenrostro MD at 9:42 EDT ,
[2021-07-20] MEDS: Pantoprazole Sodium 40 MG Tablet PO ×2 (09:48→21:32)
[2021-07-20] MEDS: Magnesium Chloride 64 MG Delay Rel.Tablet 128 MG PO (09:48)
[2021-07-20] MEDS: Loratadine 10 MG Tablet PO (09:48)
[2021-07-20] MEDS: Tacrolimus Anhydrous 1 MG Capsule 2 MG PO (09:49)
[2021-07-20] MEDS: amLODIPine 5 MG Tablet PO (09:49)
[2021-07-20] MEDS: Enoxaparin 40 MG/0.4 ML Syringe SC (09:50)
--- NOTE | 2021-07-20 09:58 | NURSING ---
pt up in chair and poor appetite continues. spo2 92% on 6l after return from ct scan. pt denies any dyspnea at this time and will monitor and continue to wean as able
--- NOTE | 2021-07-20 10:40 | CASEMGMT ---
According to insurance website the following facilities are in network: [facility], [facility], [facility], [facility] [place], [facility], and [facility]. [place]
--- NOTE | 2021-07-20 10:50 | CASEMGMT ---
SHANTANU CRUZ assessment: Face to Face with patient for initial transition planning/care coordination assessment. SHANTANU CRUZ introduced self and role at [facility], pt voices understanding and consents to assessment. Pt is sitting up in chair on 6L nc with some tachypnea. Pt is A/Ox4 and answers all questions appropriately. Care providers, pharmacy, and demographics verified. Presentation: Pt states SOB, cough, loss of taste, body aches, RENTERIA for 1 week-86% on RA Admitting dx: Sepsis secondary to pna PCP: Anna Specialists: [facility] kidney transplant team [facility]acy[facility] Insurance: [employer]SC/CRSC Prescription Benefit: MyCareCRSC/CRSC Living Will/HPOA: Pt states does not have LW/HPOA and declines AD info. LNOK: Tyesha Posey, sister; Silvano Ashby, brother Living Arrangements: Pt lives alone in apt with laundry in basement and states no concerns at home. Pt is independent with ADL's. Transportation: Pt drives self and states no transportation concerns. DME/HHC: Pt has a cane, walker, and shower chair. Pt states no need for any further DME. Pt states no hx of HHC but has been to [place] in past. Pt states no concerns with going home at time of discharge. Pt is on disability. Pt does not smoke cigarettes or drink ETOH. Pt states no further concerns/needs. CM to follow for any further discharge planning/needs. Advised pt to ask for CM if any further questions/concerns/needs arise, voices understanding. Pt Goal: Home Plan[place] SHANTANU CRUZ
--- NOTE | 2021-07-20 10:56 | ECHOD_ITS ---
Reason For Study: pericrdial effusion Procedure This was a 2D Doppler, Color Flow transthoracic echocardiogram. The exam was of adequate technical quality. Exam performed portable in patient room. Left Ventricle Normal LV size. Left ventricular systolic function is normal. The estimated ejection fraction is 70 %. Unable to assess diastolic dysfunction. No regional wall motion abnormalities noted. Right Ventricle Mildly dilated right ventricle. Normal systolic function. Atria Normal left atrium. Normal right atrium. No doppler evidence for ASD. Mitral Valve There is mild mitral annular calcification. Extension of the mitral annular calcification onto the base of the posterior mitral valve leaflet. Mild (1+) mitral valve insufficiency. Tricuspid Valve Normal tricuspid valve. Mild to moderate (1-2+) tricuspid valve insufficiency. Right ventricular systolic pressure estimated to be 42 mmHg. Aortic Valve Trisinus/trileaflet aortic valve. Normal aortic valve. Pulmonic Valve The pulmonic valve is not well visualized. Great Vessels Normal sized aortic root. Pericardium/Pleural Small pericardial effusion. There are no echocardiographic indications of cardiac tamponade. MMode/2D Measurements & Calculations LVIDd: 3.6 cm IVSd: 1.2 cm Ao root diam: 3.0 cm LVIDs: 2.7 cm LVPWd: 1.1 cm RVDd: 3.2 cm FS: 24.1 % LAV(MOD-bp): 61.6 ml LA A4 area: 19.7 cm2 LA dimension(2D): 3.1 cm LAV(MOD-bp) Indexed: 29.1 ml/m2 LAV(MOD-sp2): 66.9 ml LAV(MOD-sp4): 53.9 ml RA A4 area: 18.8 cm2 Doppler Measurements & Calculations Ao V2 max: 115.8 cm/sec LV V1 max: 90.3 cm/sec PA V2 max: 107.2 cm/sec Ao max P.4 mmHg LV V1 max P.3 mmHg TR max nhi: 294.5 cm/sec TR max P.7 mmHg ECHO/Echo Complete Interpretation Summary Left ventricular systolic function is normal. The estimated ejection fraction is 70 %. Mildly dilated right ventricle. There is mild mitral annular calcification. Extension of the mitral annular calcification onto the base of the posterior mi tral valve leaflet. Mild (1+) mitral valve insufficiency. Mild to moderate (1-2+) tricuspid valve insufficiency. Small pericardial effusion. There are no echocardiographic indications of cardiac tamponade. Right ventricular systolic pressure estimated to be 42 mmHg. Unable to assess diastolic dysfunction. Comment: a) of note: The previous transthoracic echocardiogram from 03-07-2018 demonstrat ed a bubble contrast study considered negative for right to left interatrial shunt b) compared to the previous transthoracic echocardiogram from 03-07-2018 and , with respect to the concern of pericardial effusion, there appear to be similar type finding s Ordering Physician: Chloe Robison Referring Physician: Osmin Castillo Performed By: Yesica Serrano, KAYLA, RVT
[2021-07-20 12:31] LABS: Bedside Glucose 244 mg/dL (74-106)
--- NOTE | 2021-07-20 12:53 | EX.PCM.CONCC ---
Assessment & Plan Assessment/Plan (1) Acute hypoxemic respiratory failure: PLAN: RECOMMENDATIONS: 1. Wean supplemental oxygen to maintain saturations at or above 90%. 2. Broaden antimicrobials to include meropenem and vancomycin. 3. Await results of echocardiogram. 4. Aggressive bronchopulmonary hygiene. Continue incentive spirometry and start PEP therapy. 5. Obtain and send sputum for culture. 6. Continue bronchodilator therapy. IMPRESSIONS: 1. Acute hypoxemic respiratory failure Most likely secondary to an occult pulmonary infectious process leading to an exacerbation of her asthma. The patient does not typically utilize supplemental oxygen at her baseline. Given her immunosuppressed state, I would recommend that we broaden her antimicrobials to include meropenem and vancomycin. She will be continued on bronchodilator therapy. Aggressive bronchopulmonary hygiene will be employed. Continue to wean supplemental oxygen as tolerated for saturations greater than 90%. Obtain and send sputum for culture. Check respiratory viral panel as well. Echocardiogram is pending, given pericardial effusion noted on CT imaging. If the patient does not improve from an oxygenation perspective over the next 24 hours, will consider bronchoscopy. 2. History of kidney transplantation/chronic immunosuppressed state Continue outpatient medication regimen. 3. Hypertension/neuropathy/diabetes mellitus/GERD Complicates care, management, recovery and prognosis. Continue home medications as indicated. This note was generated with [employer] dictation software. It may contain incorrect words, spelling, and punctuation that were not noted in checking the note before signing. HPI Consult Data Date of Consult: 07/21/21 HPI Narrative Reason for Consultation: Respiratory failure HPI Narrative: The patient is a 56-year-old female, with a history as outlined below, who presented to the emergency department on July 19 with generalized malaise, shortness of breath, chest tightness and hypoxemia. The patient has a known history of asthma and obstructive sleep apnea, for which she is noncompliant with the use of PAP therapy. The patient is status post kidney transplantation on chronic immunosuppressive therapy. She is followed by transplant team at the [facility]. The patient does not utilize supplemental oxygen at her baseline. She has been compliant with her Flovent and as needed albuterol. She has noted increased use of her rescue inhaler over the last several days. On presentation to the emergency department, the patient was noted to be afebrile but was tachycardic and tachypneic. She was otherwise hemodynamically stable. Laboratory evaluation revealed an elevated white blood cell count to 16,000. Arterial blood gas obtained on 8 L/min revealed a pH of 7.39 with a PCO2 of 43 and PO2 of 57. Chemistry profile was notable for a creatinine of 1.29. Lactate was within normal limits. Urinalysis was positive for leukocyte esterase and 4+ urine bacteria. A CTA chest was ultimately obtained which failed to demonstrate evidence of pulmonary embolism. There was however evidence of bilateral subsegmental atelectasis and right lower lobe consolidation with air bronchograms. Bilateral pleural effusions and pericardial effusion were also noted. The patient was placed on antimicrobials and aerosol treatments. She was admitted to the progressive care unit for further management. [facility] Medical History (Updated 07/20/21 @ 16:[address] Doe Wilson MD) Cellulitis of toe of left foot Chronic renal insufficiency, stage IV (severe) Chronic ulcer of left foot with necrosis of muscle Chronic ulcer of right great toe with fat layer exposed Delayed wound healing Diabetes mellitus type 2, uncontrolled Diabetes mellitus with polyneuropathy Diabetic foot ulcer Diabetic neuropathy Diabetic ulcer of left great toe Diarrhea in adult patient (~02/2016) Edema of left lower extremity Gait instability GERD (gastroesophageal reflux disease) History of amputation of hallux Hypertension Iron deficiency anemia Malnutrition MRSA (methicillin resistant staph aureus) culture positive Osteomyelitis of ankle or foot Pericardial effusion Puncture wound of toe of left foot Vaginal candidiasis Venous insufficiency Home Medications loperamide 2 mg PO BID PRN 03/07/18 [History Last Taken 07/06/20] ferrous sulfate 325 mg PO DAILY 03/10/20 [History Last Taken 07/07/20] carisoprodol 350 mg PO DAILY 05/21/20 [History Last Taken Unknown] multivitamin 1 tab PO DAILY 05/21/20 [History Last Taken Unknown] glipizide 5 mg PO BREAKFAST #30 tablet 07/10/20 [Rx Last Taken Unknown] loratadine 10 mg tablet 10 mg PO DAILY tab 08/13/20 [History Last Taken Unknown] amlodipine 5 mg tablet 5 mg PO DAILY tab 11/04/20 [History Last Taken Unknown] aspirin 81 mg tablet,delayed release 81 mg PO DAILY tab 11/04/20 [History Last Taken Unknown] fluticasone propionate 220 mcg/actuation HFA aerosol inhaler 2 puff INHALATION BID #12 g 11/04/20 [Rx Last Taken Unknown] furosemide 40 mg tablet 40 mg PO DAILY PRN tab 11/04/20 [History Last Taken Unknown] magnesium chloride 71.5 mg (magnesium chloride) tablet,delayed release 71.5 mg PO DAILY tab 11/04/20 [History Last Taken Unknown] mycophenolate mofetil 250 mg capsule 750 mg PO BID cap 11/04/20 [History Last Taken Unknown] omeprazole 20 mg capsule,delayed release 40 mg PO BID cap 11/04/20 [History Last Taken Unknown] prednisone 5 mg tablet 5 mg PO DAILY tab 11/04/20 [History Last Taken Unknown] semaglutide 0.25 mg SUBCUT QWEEK ml 11/04/20 [History Last Taken Unknown] tacrolimus 1 mg capsule, immediate-release 1 mg PO DAILY cap 11/04/20 [History Last Taken Unknown] biotin 10,000 mcg capsule 10,000 mcg PO DAILY cap 01/11/21 [History Last Taken Unknown] albuterol sulfate 90 mcg/actuation aerosol inhaler 2 puff INHALATION Q6H PRN #8.5 g 04/19/21 [Rx Last Taken Unknown] dicyclomine 10 mg PO TID 07/19/21 [History Last Taken Unknown] gabapentin 300 mg TID 07/19/21 [History Last Taken Unknown] insulin glargine [Lantus Solostar U-100 Insulin] 10 unit SUBCUT QHS 07/19/21 [History Last Taken Unknown] Allergy/AdvReac Type Severity Reaction Status Date / Time Latex, Natural Rubber Allergy Severe Rash Verified 07/19/21 17:58 Penicillins Allergy Severe Swelling Verified 07/19/21 17:58 lactose AdvReac Severe Diarrhea Verified 07/19/21 17:58 Family History Mother Diabetes Heart disease Hypertension Father Diabetes Heart disease Hypertension Brother Diabetes Hypertension Heart disease Surgical History Amputated toe H/O: hysterectomy History of section History of colonoscopy (~02/2016) History of esophagogastroduodenoscopy (EGD) Hx of cardiac catheterization Kidney transplant recipient S/P laparoscopic cholecystectomy (~06/2018) Social History Smoking Status: Never smoker second hand exposure: No alcohol intake: never substance use type: does not use caffeine: No what type of physical activity do you participate in: none frequency: does not exercise ROS Constitutional Constitutional: Reports chills, fatigue and malaise Eyes Eyes: Denies blurry vision or change in vision ENT HEENT: Denies dizziness, dysphagia, epistaxis or headache(s) Cardiovascular Cardiovascular: Reports dyspnea Respiratory/Chest Respiratory/Chest: Reports chest tightness, cough and dyspnea Gastrointestinal Gastrointestinal: Denies abdominal pain, diarrhea, nausea or vomiting Genitourinary Genitourinary: Denies difficulty urinating Musculoskeletal Musculoskeletal: Denies arthralgias, back pain or joint pain Integumentary Integumentary: Denies lesions, rash or skin ulcer Neurologic Neurologic: Denies abnormal gait or abnormal speech Psychiatric Psychiatric: Denies anxiety or depression Endocrine Endocrinology: Reports fatigue Hematologic/Lymphatic Hematologic/Lymphatic: Denies easy bleeding or easy bruising Physical Exam Const alert and no apparent distress Constitutional Narrative: Sitting in bedside recliner. General Appearance: cooperative Nutritional Appearance: obese HEENT normocephalic, head/scalp atraumatic and moist oral mucous membranes Eyes PERRL, EOMs intact bilaterally and conjunctivae normal Neck supple General: trachea midline Chest inspection of chest normal Resp no use of accessory muscles Resp Narrative: Bibasilar rales present. Effort and Inspection: able to speak in complete sentences Cardio regular rate and regular rhythm GI normal to inspection, nondistended, normoactive bowel sounds Extremity no clubbing, cyanosis or edema Skin no rashes or lesions noted Neuro CN's II-XII intact bilaterally, moves all extremities and no focal motor deficits Psych cooperative and affect normal Lab / Micro Data Result Diagrams: 07/21/21 05:20 07/20/21 05:20 Labs: Laboratory Results - last 24 hr 07/19/21 19:50: COVID-19 (PILAR) Negative 07/19/21 20:30: Sodium 135 L, Potassium 4.0, Chloride 100, Carbon Dioxide 28.0, Anion Gap 7, BUN 20 H, Creatinine 1.29 H, Estim Creat Clear Calc 44.34, Est GFR (MDRD) Af Amer 55 L, Est GFR (MDRD) Non-Af 46 L, BUN/Creatinine Ratio 15.5, Glucose 301 H, Calcium 8.5, Total Bilirubin 0.60, AST 54 H, ALT 44, Alkaline Phosphatase 73, Troponin I High Sens 8, Total Protein 6.6, Albumin 2.4 L, Globulin 4.2, Albumin/Globulin Ratio 0.6 L 07/19/21 20:30: WBC 16.2 H, RBC 3.78 L, Hgb 9.7 L, Hct 32.4 L, MCV 85.7, MCH 25.7 L, MCHC 29.9 L, RDW Std Deviation 45.1 H, RDW Coeff of Frank 14.5, Plt Count 319, MPV 11.2, Immature Gran % (Auto) 0.800, Neut % (Auto) 85.4 H, Lymph % (Auto) 4.5 L, [place] % (Auto) 9.1, Eos % (Auto) 0.0, Baso % (Auto) 0.2, Absolute Neuts (auto) 13.9 H, Absolute Lymphs (auto) 0.73 L, Nucleated RBC % 0 07/19/21 20:30: PT 15.8 H, INR 1.3, APTT 29.5 07/19/21 20:40: Lactic Acid 2.0 07/20/21 00:20: MRSA (PCR) Negative 07/20/21 00:26: POC Glucose 293 H 07/20/21 00:43: Lactic Acid 1.5 07/20/21 02:15: Urine Color Yellow, Urine Clarity Clear, Urine pH 6.0, Ur Specific [place] 1.025, Urine Protein 100 H, Urine Glucose (UA) 250 H, Urine Ketones 5 H, Urine Occult Blood Negative, Urine Nitrite Negative, Urine Bilirubin Negative, Urine Urobilinogen Normal, Ur Leukocyte Esterase 100 H, Urine RBC 0 SEEN, Urine WBC 5-10 SEEN, Ur Squamous Epith Cells 0-5 SEEN, Urine Bacteria 4+, Hyaline Casts 0-5 SEEN, Coarse Granular Casts 0-5 SEEN, Urine Mucus 0 SEEN 07/20/21 05:20: WBC 12.3 H, RBC 3.59 L, Hgb 9.2 L, Hct 30.0 L, MCV 83.6, MCH 25.6 L, MCHC 30.7 L, RDW Std Deviation 43.8, RDW Coeff of Frank 14.4, Plt Count 328, MPV 11.3, Immature Gran % (Auto) 0.800, Neut % (Auto) 84.7 H, Lymph % (Auto) 3.8 L, [place] % (Auto) 10.3 H, Eos % (Auto) 0.2, Baso % (Auto) 0.2, Absolute Neuts (auto) 10.4 H, Absolute Lymphs (auto) 0.47 L, Nucleated RBC % 0, Differential Comment SCANNED 07/20/21 05:20: Sodium 136, Potassium 3.9, Chloride 102, Carbon Dioxide 28.0, Anion Gap 6, BUN 16, Creatinine 0.98, Estim Creat Clear Calc 58.37, Est GFR (MDRD) Af Amer 76, Est GFR (MDRD) Non-Af 63, BUN/Creatinine Ratio 16.3, Glucose 267 H, Calcium 8.0 L 07/20/21 06:39: POC Glucose 267 H 07/20/21 11:42: POC Glucose 244 H Micro: Microbiology 07/20/21 02:55 Urine, Random Legionella Antigen - Final 07/20/21 02:55 Urine, Random Streptococcus pneumoniae Antigen (M - Final 07/19/21 19:50 Mucosa - Nasopharyngeal Influenza Types A,B Direct FA (MELVINA) - Final ABG Data ABG results: ABG 07/19/21 21:54 Specimen Type ART Sample Site L Radial pH 7.39 Bicarbonate Actual 26.4 H Total CO2 28 Base Excess 2 O2 Saturation 89 L ABG pCO2 43.3 ABG pO2 57 L Yao Test Positive O2 Delivery Device Cannula Liter Flow 8.0 Radiology Impression Chest X-Ray 07/19/21 19:34 IMPRESSION: There is bilateral infiltrate. Electronically Signed: Amilcar Isaac MD at 19:48 EDT Reading Location ID and State: [facility] / [place] , Service support , Chest CTA 07/20/21 08:14 IMPRESSION: 1. No CTA evidence of pulmonary thromboemboli, thoracic aortic aneurysm or dissection. 2. Right posterior lower lobe atelectases with air bronchograms. 3. Multiple subsegmental atelectatic changes in the left lower lobe, left upper lobe, right middle lobe, right upper lobe and right anterior lung base. 4. Moderate bilateral posterior pleural fluid, right more than left. 5. 2.2 cm thick right pericardial fluid and 1.9 cm thick left posterior pericardial fluid accounting for enlarged cardiac silhouette. 6. Minimal old central compression fracture of the T11 superior endplate. 7. The above are all new findings when compared to CT chest without contrast 04/12/2017. Electronically Signed: Crescencio Buenrostro MD at 9:42 EDT , Charges/Coding Visit Charges Inpatient E&M: 84447 Init Hosp L3
--- NOTE | 2021-07-20 13:47 | PN.HOSP_ITS ---
Subjective Subjective Patient seen and examined. Still complaining of shortness of breath. She denied any cough no chest pain, nausea or vomiting. She does complain of some mild chest pressure. Review of systems otherwise negative. She remained on 10 L of oxygen at time of review. Objective Data Objective Data Vital Signs: Vital Signs Temp Pulse Resp BP Pulse Ox 98.1 F 97 18 137/76 H 96 07/20/21 08:40 07/20/21 08:40 07/20/21 08:40 07/20/21 08:40 07/20/21 13:16 Oxygen Flow Rate (L/min) 10 Oxygen Delivery Method High Flow Weight: 232 lb 9.403 oz Body Mass Index (BMI) 38.1 Intake & Output: Intake and Output for Last 24 Hours 07/18/21 07/19/21 07/20/21 23:59 23:59 23:59 Intake Total 500 / 500 1080 / 1080 Output Total 750 / 750 Balance 500 / 500 330 / 330 Lab / Micro Data Result Diagrams: 07/20/21 05:20 07/20/21 05:20 Labs: Laboratory Results - last 24 hr 07/19/21 19:50: COVID-19 (PILAR) Negative 07/19/21 20:30: Sodium 135 L, Potassium 4.0, Chloride 100, Carbon Dioxide 28.0, Anion Gap 7, BUN 20 H, Creatinine 1.29 H, Estim Creat Clear Calc 44.34, Est GFR (MDRD) Af Amer 55 L, Est GFR (MDRD) Non-Af 46 L, BUN/Creatinine Ratio 15.5, Glucose 301 H, Calcium 8.5, Total Bilirubin 0.60, AST 54 H, ALT 44, Alkaline Phosphatase 73, Troponin I High Sens 8, Total Protein 6.6, Albumin 2.4 L, Globulin 4.2, Albumin/Globulin Ratio 0.6 L 07/19/21 20:30: WBC 16.2 H, RBC 3.78 L, Hgb 9.7 L, Hct 32.4 L, MCV 85.7, MCH 25.7 L, MCHC 29.9 L, RDW Std Deviation 45.1 H, RDW Coeff of Frank 14.5, Plt Count 319, MPV 11.2, Immature Gran % (Auto) 0.800, Neut % (Auto) 85.4 H, Lymph % (Auto) 4.5 L, [place] % (Auto) 9.1, Eos % (Auto) 0.0, Baso % (Auto) 0.2, Absolute Neuts (auto) 13.9 H, Absolute Lymphs (auto) 0.73 L, Nucleated RBC % 0 07/19/21 20:30: PT 15.8 H, INR 1.3, APTT 29.5 07/19/21 20:40: Lactic Acid 2.0 07/20/21 00:20: MRSA (PCR) Negative 07/20/21 00:26: POC Glucose 293 H 07/20/21 00:43: Lactic Acid 1.5 07/20/21 02:15: Urine Color Yellow, Urine Clarity Clear, Urine pH 6.0, Ur Specific [place] 1.025, Urine Protein 100 H, Urine Glucose (UA) 250 H, Urine Ketones 5 H, Urine Occult Blood Negative, Urine Nitrite Negative, Urine Bilirubin Negative, Urine Urobilinogen Normal, Ur Leukocyte Esterase 100 H, Urine RBC 0 SEEN, Urine WBC 5-10 SEEN, Ur Squamous Epith Cells 0-5 SEEN, Urine Bacteria 4+, Hyaline Casts 0-5 SEEN, Coarse Granular Casts 0-5 SEEN, Urine Mucus 0 SEEN 07/20/21 05:20: WBC 12.3 H, RBC 3.59 L, Hgb 9.2 L, Hct 30.0 L, MCV 83.6, MCH 25.6 L, MCHC 30.7 L, RDW Std Deviation 43.8, RDW Coeff of Frank 14.4, Plt Count 328, MPV 11.3, Immature Gran % (Auto) 0.800, Neut % (Auto) 84.7 H, Lymph % (Auto) 3.8 L, [place] % (Auto) 10.3 H, Eos % (Auto) 0.2, Baso % (Auto) 0.2, Absolute Neuts (auto) 10.4 H, Absolute Lymphs (auto) 0.47 L, Nucleated RBC % 0, Differential Comment SCANNED 07/20/21 05:20: Sodium 136, Potassium 3.9, Chloride 102, Carbon Dioxide 28.0, Anion Gap 6, BUN 16, Creatinine 0.98, Estim Creat Clear Calc 58.37, Est GFR (M DRD) Af Amer 76, Est GFR (MDRD) Non-Af 63, BUN/Creatinine Ratio 16.3, Glucose 267 H, Calcium 8.0 L 07/20/21 06:39: POC Glucose 267 H 07/20/21 11:42: POC Glucose 244 H Micro: Microbiology 07/20/21 02:55 Urine, Random Legionella Antigen - Final 07/20/21 02:55 Urine, Random Streptococcus pneumoniae Antigen (M - Final 07/19/21 19:50 Mucosa - Nasopharyngeal Influenza Types A,B Direct FA (MELVINA) - Final ABG Data ABG results: ABG 07/19/21 21:54 Specimen Type ART Sample Site L Radial pH 7.39 Bicarbonate Actual 26.4 H Total CO2 28 Base Excess 2 O2 Saturation 89 L ABG pCO2 43.3 ABG pO2 57 L Yao Test Positive O2 Delivery Device Cannula Liter Flow 8.0 Radiography Diagnostic Testing: Radiology Impression Chest X-Ray 07/19/21 19:34 IMPRESSION: There is bilateral infiltrate. Electronically Signed: Amilcar Isaac MD at 19:48 EDT , Chest CTA 07/20/21 08:14 IMPRESSION: 1. No CTA evidence of pulmonary thromboemboli, thoracic aortic aneurysm or dissection. 2. Right posterior lower lobe atelectases with air bronchograms. 3. Multiple subsegmental atelectatic changes in the left lower lobe, left upper lobe, right middle lobe, right upper lobe and right anterior lung base. 4. Moderate bilateral posterior pleural fluid, right more than left. 5. 2.2 cm thick right pericardial fluid and 1.9 cm thick left posterior pericardial fluid accounting for enlarged cardiac silhouette. 6. Minimal old central compression fracture of the T11 superior endplate. 7. The above are all new findings when compared to CT chest without contrast 04/12/2017. Electronically Signed: Crescencio Buenrostro MD at 9:42 EDT , Echocardiogram 07/20/21 10:56 Interpretation Summary Left ventricular systolic function is normal. The estimated ejection fraction is 70 %. Mildly dilated right ventricle. There is mild mitral annular calcification. Extension of the mitral annular calcification onto the base of the posterior mitral valve leaflet. Mild (1+) mitral valve insufficiency. Mild to moderate (1-2+) tricuspid valve insufficiency. Small pericardial effusion. There are no echocardiographic indications of cardiac tamponade. Right ventricular systolic pressure estimated to be 42 mmHg. Unable to assess diastolic dysfunction. Comment: a) of note: The previous transthoracic echocardiogram from 03-07-2018 demonstrated a bubble contrast study considered negative for right to left interatrial shunt b) compared to the previous transthoracic echocardiogram from 03-07-2018 and 03/17/2017, with respect to the concern of pericardial effusion, there appear to be similar type findings Ordering Physician: Chloe Robison Referring Physician: Osmin Castillo Performed By: Yesica Serrano, KAYLA, RVT Physical Exam Const alert, oriented x3 and no apparent distress Exam Limitations: no limitations HEENT head/scalp atraumatic and moist oral mucous membranes Head and Scalp: normocephalic Eyes PERRL, EOMs intact bilaterally and conjunctivae normal Neck no lymphadenopathy, supple and no JVD Resp Resp Narrative: diminished breath sounds bibasally, mild wheezing and crackles. on 10L of oxygen by nasal canula Cardio regular rate, regular rhythm, S1 normal heart sound, S2 normal heart sound and no murmurs GI normal to inspection, nondistended, normoactive bowel sounds, soft to palpation, non-tender and non-distended Extremity normal to inspection, full ROM and no clubbing, cyanosis or edema Peripheral Pulses: Yes pulses 2+ throughout Skin no rashes or lesions noted Neuro oriented x3, CN's II-XII intact bilaterally and moves all extremities Sensorium / Orientation: awake and alert Psych affect normal Assessment & Plan Assessment/Plan (1) Acute hypoxemic respiratory failure: PLAN: #Acute hypoxic respiratory failure due to pneumonia and pericardial effusion as well as pleural effusion * On 10 L of oxygen today. On IV ceftriaxone and azithromycin. * Patient shares that she had a history of blood clots with CTA was obtained which was negative for blood clots but showed bilateral posterior pleural fluid and right posterior lobe atelectasis as well as multiple segmental atel ectatic changes in the left lower lobe, left upper lobe and right middle as well as right upper lobe. She also had a 2.2 cm thick right pericardial fluid and 1.9 cm thick left posterior pericardial fluid. * Cardiology and pulmonology consulted. Continue IV antibiotics; these have been broadened to IV vancomycin and meropenem * 2D echo ordered which showed EF of 70% with normal left ventricular systolic function and mildly dilated right ventricle and small pericardial effusion with no echocardiographic indication of cardiac tamponade and RVSP of 42 mmHg. * Breathing treatments of bronchodilators. Titrate oxygen to maintain saturation above 90%. * Will diurese with IV Lasix as well. * Sputum culture ordered. * #History of ESRD with kidney transplant * Stable. * #Type 2 diabetes mellitus: On basal insulin. On glipizide. Insulin sliding scale. Checks AC at bedtime. #Hypertension: On amlodipine IV hydralazine as needed #Obstructive sleep apnea: On CPAP nightly DVT prophylaxis: Lovenox Charges/Coding Visit Charges Inpatient E&M: 36[address] [facility] L3
--- NOTE | 2021-07-20 16:16 | PCM.CONS.C ---
Assessment & Plan Assessment/Plan (1) Pericardial effusion: PLAN: The patient does have a small pericardial effusion with no obvious evidence of cardiac tamponade physiology based upon her transthoracic echocardiogram. It is noted that she has had similar findings reported back in 2017 and 2018. Thus, this appears to be a chronic finding for her versus an acute finding. The etiology appears to be somewhat unclear at this time with respect to this chronic finding. It is unclear as to whether this is related to her chronic noncardiovascular disease process. If the patient were to pursue further diagnostic evaluation then this may involve a tertiary care center evaluation for further noninvasive or potentially invasive studies such as a pericardiocentesis or pericardial window to assist with diagnosis, etc. At the moment she will continue her noncardiac evaluation and care of her acute noncardiac condition. (2) Pneumonia: QUALIFIERS: Pneumonia type: due to unspecified organism Laterality: bilateral Lung location: unspecified part of lung Qualified Code(s): J18.9 - Pneumonia, unspecified organism PLAN: Does appear there are concerns of an underlying acute respiratory related condition/pneumonia. She has been evaluated by internal medicine and pulmonology. She is being treated medically. (3) Acute hypoxemic respiratory failure: PLAN: She did have acute hypoxic respiratory failure thought related to the underlying pulmonary disease process. It does not appear this is related to an acute cardiac process at this time. She will continue evaluation care per internal medicine and pulmonology. (4) Hypertension: QUALIFIERS: Hypertension type: essential hypertension Qualified Code(s): I10 - Essential (primary) hypertension PLAN: She does need to NU medical management with adjustment of her blood pressures taking into consideration her renal function, etc.,. (5) S/P kidney transplant: PLAN: She is status post renal transplant. She states she recently had a renal biopsy that demonstrated no evidence of rejection. She should continue to follow with her transplant physicians for this issue. Addt'l Comments The patient's case was discussed and reviewed with the patient and Dr. Robison. This note was generated using a voice recognition system and there may be incorrect words, spelling or punctuation that were not noted when reviewing the office note prior to saving. HPI Consult Data Date of Consult: 07/20/21 HPI Narrative HPI Narrative: DORIS EDWARD, is a 56 year old white female who presents for cardiovascular consultation based upon concerns of a pericardial effusion superimposed upon a history of diabetes mellitus, chronic renal insufficiency, status post renal transplant (approximately 1 year ago according to the patient), irritable bowel syndrome, and DARCY who presented for concerns of progressive feeling rough , malaise, progressive shortness of breath, diminished appetite, and increased frequency of loose bowel movements. She was evaluated in the emergency department and subsequently brought into the PCU for further evaluation and care. In the emergency department she had a high sensitive troponin I level which was reported negative. She had an ECG that demonstrated sinus tachycardia with low voltage QRS in the limb leads and a nonspecific ST segment abnormality. She underwent radiologic evaluation with chest x-ray and chest CT. The results are noted below. Based upon the results of the CT scan there was concerns of a pericardial effusion. Thus a transthoracic echocardiogram was requested and performed. The results are noted below. It was noted the patient did have a small pericardial effusion with no obvious tamponade physiology. It was also noted that similar type findings were noted on previous transthoracic echocardiograms from 2017 and 2018. The patient appeared to deny any symptoms of classic angina pectoris. She had no evidence of acute CHF with acute orthopnea or PND. She has had no ongoing peripheral pitting edema. She denies any near-syncope or syncope. She was noted to be hypoxic. This was thought to be based upon her underlying pulmonary disease findings. She has been treated with O2 nasal cannula. The patient has undergone previous diagnostic cardiac catheterization in the past at [facility]. The report is noted below. [facility] Medical History (Updated 07/20/21 @ 16:[address] Doe Wilson MD) Cellulitis of toe of left foot Chronic renal insufficiency, stage IV (severe) Chronic ulcer of left foot with necrosis of muscle Chronic ulcer of right great toe with fat layer exposed Delayed wound healing Diabetes mellitus type 2, uncontrolled Diabetes mellitus with polyneuropathy Diabetic foot ulcer Diabetic neuropathy Diabetic ulcer of left great toe Diarrhea in adult patient (~02/2016) Edema of left lower extremity Gait instability GERD (gastroesophageal reflux disease) History of amputation of hallux Hypertension Iron deficiency anemia Malnutrition MRSA (methicillin resistant staph aureus) culture positive Osteomyelitis of ankle or foot Pericardial effusion Puncture wound of toe of left foot Vaginal candidiasis Venous insufficiency Home Medications loperamide 2 mg PO BID PRN 03/07/18 [History Last Taken 07/06/20] ferrous sulfate 325 mg PO DAILY 03/10/20 [History Last Taken 07/07/20] carisoprodol 350 mg PO DAILY 05/21/20 [History Last Taken Unknown] multivitamin 1 tab PO DAILY 05/21/20 [History Last Taken Unknown] glipizide 5 mg PO BREAKFAST #30 tablet 07/10/20 [Rx Last Taken Unknown] loratadine 10 mg tablet 10 mg PO DAILY tab 08/13/20 [History Last Taken Unknown] amlodipine 5 mg tablet 5 mg PO DAILY tab 11/04/20 [History Last Taken Unknown] aspirin 81 mg tablet,delayed release 81 mg PO DAILY tab 11/04/20 [History Last Taken Unknown] fluticasone propionate 220 mcg/actuation HFA aerosol inhaler 2 puff INHALATION BID #12 g 11/04/20 [Rx Last Taken Unknown] furosemide 40 mg tablet 40 mg PO DAILY PRN tab 11/04/20 [History Last Taken Unknown] magnesium chloride 71.5 mg (magnesium chloride) tablet,delayed release 71.5 mg PO DAILY tab 11/04/20 [History Last Taken Unknown] mycophenolate mofetil 250 mg capsule 750 mg PO BID cap 11/04/20 [History Last Taken Unknown] omeprazole 20 mg capsule,delayed release 40 mg PO BID cap 11/04/20 [History Last Taken Unknown] prednisone 5 mg tablet 5 mg PO DAILY tab 11/04/20 [History Last Taken Unknown] semaglutide 0.25 mg SUBCUT QWEEK ml 11/04/20 [History Last Taken Unknown] tacrolimus 1 mg capsule, immediate-release 1 mg PO DAILY cap 11/04/20 [History Last Taken Unknown] biotin 10,000 mcg capsule 10,000 mcg PO DAILY cap 01/11/21 [History Last Taken Unknown] albuterol sulfate 90 mcg/actuation aerosol inhaler 2 puff INHALATION Q6H PRN #8.5 g 04/19/21 [Rx Last Taken Unknown] dicyclomine 10 mg PO TID 07/19/21 [History Last Taken Unknown] gabapentin 300 mg TID 07/19/21 [History Last Taken Unknown] insulin glargine [Lantus Solostar U-100 Insulin] 10 unit SUBCUT QHS 07/19/21 [History Last Taken Unknown] Allergy/AdvReac Type Severity Reaction Status Date / Time Latex, Natural Rubber Allergy Severe Rash Verified 07/19/21 17:58 Penicillins Allergy Severe Swelling Verified 07/19/21 17:58 lactose AdvReac Severe Diarrhea Verified 07/19/21 17:58 Family History Mother Diabetes Heart disease Hypertension Father Diabetes Heart disease Hypertension Brother Diabetes Hypertension Heart disease Surgical History Amputated toe H/O: hysterectomy History of section History of colonoscopy (~02/2016) History of esophagogastroduodenoscopy (EGD) Hx of cardiac catheterization Kidney transplant recipient S/P laparoscopic cholecystectomy (~06/2018) Social History Smoking Status: Never smoker second hand exposure: No alcohol intake: never substance use type: does not use caffeine: No what type of physical activity do you participate in: none frequency: does not exercise ROS Constitutional Constitutional: Reports malaise and poor appetite Eyes Eyes: Reports as per HPI ENT HEENT: Reports as per HPI Cardiovascular Cardiovascular: Reports dyspnea Respiratory/Chest Respiratory/Chest: Reports dyspnea Gastrointestinal Gastrointestinal: Reports diarrhea Genitourinary Genitourinary: Reports as per HPI Musculoskeletal Musculoskeletal: Reports as per HPI Integumentary Integumentary: Reports as per HPI Neurologic Neurologic: Reports as per HPI Psychiatric Psychiatric: Reports as per HPI Physical Exam Const alert, oriented x3 and no apparent distress Orientation / Consciousness: awake HEENT normocephalic, head/scalp atraumatic and hearing grossly normal bilaterally Eyes PERRL, EOMs intact bilaterally and conjunctivae normal Neck full ROM, supple and no JVD Resp Auscultation: rhonchi throughout Cardio regular rate, regular rhythm, S1 normal heart sound and S2 normal heart sound GI normal to inspection, nondistended, normoactive bowel sounds Extremity no pedal edema Skin no rashes or lesions noted Neuro oriented x3, moves all extremities, no focal motor deficits and no sensory deficits noted Psych mental status grossly normal Risk Stratification Risk Stratification Applicable: No Procedure Criteria Type of Procedure Procedure Type: Elective Elective Risks - COVID COVID Risk Discussion: The surgeon/proceduralist and patient have discussed in detail the risk of exposure to and/or potential harm posed by the COVID-19 virus with having a surgery/procedure at this time versus the risk of delaying the surgery/procedure. It is not possible to know either the risk of delaying the surgery or procedure or chance of getting an infection with perfect accuracy, but a joint decision was made between the patient and the surgeon/proceduralist to proceed at this time with the scheduled surgery/procedure as indicated on the consent form. Objective Data Vital Signs: Vital Signs Temp Pulse Resp BP Pulse Ox 98.1 F 97 18 137/76 H 96 07/20/21 08:40 07/20/21 08:40 07/20/21 08:40 07/20/21 08:40 07/20/21 13:16 Oxygen Flow Rate (L/min) 10 Oxygen Delivery Method High Flow Weight: 232 lb 9.403 oz Body Mass Index (BMI) 38.1 Intake & Output: Intake and Output for Last 24 Hours 07/18/21 07/19/21 07/20/21 23:59 23:59 23:59 Intake Total 500 / 500 1080 / 1080 Output Total 750 / 750 Balance 500 / 500 330 / 330 Lab / Micro Data Result Diagrams: 07/20/21 05:20 07/20/21 05:20 Labs: Laboratory Results - last 24 hr 07/19/21 19:50: COVID-19 (PILAR) Negative 07/19/21 20:30: Sodium 135 L, Potassium 4.0, Chloride 100, Carbon Dioxide 28.0, Anion Gap 7, BUN 20 H, Creatinine 1.29 H, Estim Creat Clear Calc 44.34, Est GFR (MDRD) Af Amer 55 L, Est GFR (MDRD) Non-Af 46 L, BUN/Creatinine Ratio 15.5, Glucose 301 H, Calcium 8.5, Total Bilirubin 0.60, AST 54 H, ALT 44, Alkaline Phosphatase 73, Troponin I High Sens 8, Total Protein 6.6, Albumin 2.4 L, Globulin 4.2, Albumin/Globulin Ratio 0.6 L 07/19/21 20:30: WBC 16.2 H, RBC 3.78 L, Hgb 9.7 L, Hct 32.4 L, MCV 85.7, MCH 25.7 L, MCHC 29.9 L, RDW Std Deviation 45.1 H, RDW Coeff of Frank 14.5, Plt Count 319, MPV 11.2, Immature Gran % (Auto) 0.800, Neut % (Auto) 85.4 H, Lymph % (Auto) 4.5 L, [place] % (Auto) 9.1, Eos % (Auto) 0.0, Baso % (Auto) 0.2, Absolute Neuts (auto) 13.9 H, Absolute Lymphs (auto) 0.73 L, Nucleated RBC % 0 07/19/21 20:30: PT 15.8 H, INR 1.3, APTT 29.5 07/19/21 20:40: Lactic Acid 2.0 07/20/21 00:20: MRSA (PCR) Negative 07/20/21 00:26: POC Glucose 293 H 07/20/21 00:43: Lactic Acid 1.5 07/20/21 02:15: Urine Color Yellow, Urine Clarity Clear, Urine pH 6.0, Ur Specific [place] 1.025, Urine Protein 100 H, Urine Glucose (UA) 250 H, Urine Ketones 5 H, Urine Occult Blood Negative, Urine Nitrite Negative, Urine Bilirubin Negative, Urine Urobilinogen Normal, Ur Leukocyte Esterase 100 H, Urine RBC 0 SEEN, Urine WBC 5-10 SEEN, Ur Squamous Epith Cells 0-5 SEEN, Urine Bacteria 4+, Hyaline Casts 0-5 SEEN, Coarse Granular Casts 0-5 SEEN, Urine Mucus 0 SEEN 07/20/21 05:20: WBC 12.3 H, RBC 3.59 L, Hgb 9.2 L, Hct 30.0 L, MCV 83.6, MCH 25.6 L, MCHC 30.7 L, RDW Std Deviation 43.8, RDW Coeff of Frank 14.4, Plt Count 328, MPV 11.3, Immature Gran % (Auto) 0.800, Neut % (Auto) 84.7 H, Lymph % (Auto) 3.8 L, [place] % (Auto) 10.3 H, Eos % (Auto) 0.2, Baso % (Auto) 0.2, Absolute Neuts (auto) 10.4 H, Absolute Lymphs (auto) 0.47 L, Nucleated RBC % 0, Differential Comment SCANNED 07/20/21 05:20: Sodium 136, Potassium 3.9, Chloride 102, Carbon Dioxide 28.0, Anion Gap 6, BUN 16, Creatinine 0.98, Estim Creat Clear Calc 58.37, Est GFR (MDRD) Af Amer 76, Est GFR (MDRD) Non-Af 63, BUN/Creatinine Ratio 16.3, Glucose 267 H, Calcium 8.0 L 07/20/21 06:39: POC Glucose 267 H 07/20/21 11:42: POC Glucose 244 H Micro: Microbiology 07/20/21 13:16 Mucosa - Nasopharyngeal Respiratory Panel (PCR) - Final 07/20/21 02:55 Urine, Random Legionella Antigen - Final 07/20/21 02:55 Urine, Random Streptococcus pneumoniae Antigen (M - Final 07/19/21 19:50 Mucosa - Nasopharyngeal Influenza Types A,B Direct FA (MELVINA) - Final ABG Data ABG results: ABG 07/19/21 21:54 Specimen Type ART Sample Site L Radial pH 7.39 Bicarbonate Actual 26.4 H Total CO2 28 Base Excess 2 O2 Saturation 89 L ABG pCO2 43.3 ABG pO2 57 L Yao Test Positive O2 Delivery Device Cannula Liter Flow 8.0 Cardiology Labs/Tests 07/19/21 20:30: Sodium 135 L, Potassium 4.0, Chloride 100, Carbon Dioxide 28.0, Anion Gap 7, BUN 20 H, Creatinine 1.29 H, Est GFR (MDRD) Af Amer 55 L, Est GFR (MDRD) Non-Af 46 L, BUN/Creatinine Ratio 15.5, Glucose 301 H, Calcium 8.5, Total Bilirubin 0.60 07/19/21 20:30: WBC 16.2 H, RBC 3.78 L, Hgb 9.7 L, Hct 32.4 L, MCV 85.7, MCH 25.7 L, MCHC 29.9 L, Plt Count 319, MPV 11.2, Immature Gran % (Auto) 0.800, Neut % (Auto) 85.4 H, Lymph % (Auto) 4.5 L, [place] % (Auto) 9.1, Eos % (Auto) 0.0, Baso % (Auto) 0.2, Absolute Neuts (auto) 13.9 H, Nucleated RBC % 0 07/19/21 20:30: PT 15.8 H, INR 1.3, APTT 29.5 07/19/21 20:40: Lactic Acid 2.0 07/19/21 21:54: pH 7.39, Bicarbonate Actual 26.4 H, Base Excess 2, O2 Saturation 89 L, ABG pCO2 43.3, ABG pO2 57 L, Yao Test Positive 07/20/21 00:43: Lactic Acid 1.5 07/20/21 02:15: Urine Color Yellow, Urine Clarity Clear, Urine pH 6.0, Ur Specific [place] 1.025, Urine Protein 100 H, Urine Glucose (UA) 250 H, Urine Ketones 5 H, Urine Occult Blood Negative, Urine Nitrite Negative, Urine Bilirubin Negative, Urine Urobilinogen Normal, Ur Leukocyte Esterase 100 H, Urine RBC 0 SEEN, Urine WBC 5-10 SEEN 07/20/21 05:20: WBC 12.3 H, RBC 3.59 L, Hgb 9.2 L, Hct 30.0 L, MCV 83.6, MCH 25.6 L, MCHC 30.7 L, Plt Count 328, MPV 11.3, Immature Gran % (Auto) 0.800, Neut % (Auto) 84.7 H, Lymph % (Auto) 3.8 L, [place] % (Auto) 10.3 H, Eos % (Auto) 0.2, Baso % (Auto) 0.2, Absolute Neuts (auto) 10.4 H, Nucleated RBC % 0 07/20/21 05:20: Sodium 136, Potassium 3.9, Chloride 102, Carbon Dioxide 28.0, Anion Gap 6, BUN 16, Creatinine 0.98, Est GFR (MDRD) Af Amer 76, Est GFR (MDRD) Non-Af 63, BUN/Creatinine Ratio 16.3, Glucose 267 H, Calcium 8.0 L Rhythm: Sinus rhythm EKG: As noted above ECHO: Echocardiogram 07/20/21 10:56 Interpretation Summary Left ventricular systolic function is normal. The estimated ejection fraction is 70 %. Mildly dilated right ventricle. There is mild mitral annular calcification. Extension of the mitral annular calcification onto the base of the posterior mitral valve leaflet. Mild (1+) mitral valve insufficiency. Mild to moderate (1-2+) tricuspid valve insufficiency. Small pericardial effusion. There are no echocardiographic indications of cardiac tamponade. Right ventricular systolic pressure estimated to be 42 mmHg. Unable to assess diastolic dysfunction. Comment: a) of note: The previous transthoracic echocardiogram from 03-07-2018 demonstrated a bubble contrast study considered negative for right to left interatrial shunt b) compared to the previous transthoracic echocardiogram from 03-07-2018 and 03/17/2017, with respect to the concern of pericardial effusion, there appear to be similar type findings Cardiac Cath: Operative Report (Blank) Date of Procedure: 06/24/13 - Ene Mejia [facility] Procedure: Left heart catheterization, left ventricular gram, coronary arteriography Indications: Chest discomfort/angina pectoris Consent: Per patient Premedications: Versed 1 mg IV push x1 Procedure: He patient was brought to the cardiac catheterization laboratory laid supine on the cardiac catheterization table. The right inguinal area was prepped and draped in the standard sterile fashion. 2% Xylocaine was used for local anesthesia. Using the modified Seldinger technique the right femoral artery was cannulated and a #5 Maltese sheath was placed. A #5 Maltese JL4 Michele left coronary artery catheter was then advanced under fluoroscopic guidance to the level the central aorta where central aortic pressure was noted. It was then used to engage the left coronary ostium where selective left coronary arteriography in multiple views. This catheter was then exchanged over a J-tipped guidewire for a #5 Maltese JR 4 Michele right coronary artery catheter. This catheter was then advanced under fluoroscopic guide to the level the central aorta were central aortic pressure was noted. Was then used to engage the right coronary ostium where selective right coronary arteriography was performed in multiple views. This catheter was then exchanged over a J-tipped guidewire for a #5 Maltese pigtail catheter. This catheter was advanced to the level of the central aorta and with the assistance of the J-tipped guidewire prolapsed across the aortic valve into the left ventricle. Left ventricular pressures measure coronary. A single plane DICKSON left ventriculogram was performed using 36 mL of Isovue at 12 mL per second. Left ventricular pressures were measured and recorded. The left heart pullback procedure was performed. All catheters and sheaths were eventually removed. Direct pressure was held for adequate hemostasis was achieved. There was no apparent bleeding, hematoma, or constipation otherwise prior to leaving the cardiac catheterization laboratory. Findings: Hemodynamics: Pre-angiographic dye load: Central pressure: 95/62 mmHg Mean central pressure: 77 mmHg Left ventricular pressure: 108/15 mmHg Post-angiographic dye load: Central pressure: 111/63 mmHg Mean central pressure: 84 mmHg Left ventricular pressure: 117/21 mmHg Left ventricle: Normal left ventricular size, wall motion, and systolic function. The estimated LVEF is 65%. Left main coronary artery: This is a large vessel giving rise to the left anterior descending and left circumflex coronary arteries. It appears to be angiographically normal. Left anterior descending coronary artery: This is a large vessel which as noted to course around the LV apex and give rise to a small septal refrigeration unit repairer as well as a small first and second diagonal branching system. The LAD demonstrates proximal 10% tubular type stenosis. Left circumflex coronary artery: This is a large vessel which gives rise to a small to moderate first OM and small second OM and large third OM. The LCx system appears to be angiographically normal. Right coronary artery: This is a large dominant vessel giving rise to a small right PDA, small right AV segment, and small right posterior lateral system. The RCA system also gives rise to a high RV marginal branch. The RCA system appears to be angiographically normal. Aortic valve annulus: Normal Aortic valve: Normal Aortic root: Normal Mitral valve annulus: Normal Mitral valve: Mitral valve prolapse without obvious mitral valve regurgitation Discussion: The cardiac catheterization reveals relatively normal resting left ventricular end-diastolic pressure. The left ventriculogram demonstrates preserved left ventricular size, wall motion, and systolic function. Coronary arteriography does not demonstrate any angiographically significant appearing CAD. Valvular interrogation suggests mitral valve prolapse without obvious mitral valve regurgitation. The patient should continue risk factor evaluation and medical therapy as deemed appropriate. She should be considered for further non-CAD evaluation of her chest discomfort. Final impression: 1. Relatively normal left ventricular end-diastolic pressure at rest. 2. Left ventricle: A. Normal left ventricular size, wall motion, and systolic function D. Estimated LVEF is 65% 3. Left main coronary artery: A. She graphically normal 4. Left anterior descending coronary: A. Proximal 10% tubular type stenosis 5. Left circumflex coronary artery: A. Angiographically normal 6. Right coronary artery: A. Large dominant vessel B. Angiographically normal 7. Mitral valve: A. Mitral valve prolapse without obvious mitral valve regurgitant Radiography Diagnostic Testing: Radiology Impression Chest X-Ray 07/19/21 19:34 IMPRESSION: There is bilateral infiltrate. Electronically Signed: Amilcar Isaac MD at 19:48 EDT Reading Location ID and State: [facility] / [place] , Service support , Chest CTA 07/20/21 08:14 IMPRESSION: 1. No CTA evidence of pulmonary thromboemboli, thoracic aortic aneurysm or dissection. 2. Right posterior lower lobe atelectases with air bronchograms. 3. Multiple subsegmental atelectatic changes in the left lower lobe, left upper lobe, right middle lobe, right upper lobe and right anterior lung base. 4. Moderate bilateral posterior pleural fluid, right more than left. 5. 2.2 cm thick right pericardial fluid and 1.9 cm thick left posterior pericardial fluid accounting for enlarged cardiac silhouette. 6. Minimal old central compression fracture of the T11 superior endplate. 7. The above are all new findings when compared to CT chest without contrast 04/12/2017. Electronically Signed: Crescencio Buenrostro MD at 9:42 EDT , Echocardiogram 07/20/21 10:56 Interpretation Summary Left ventricular systolic function is normal. The estimated ejection fraction is 70 %. Mildly dilated right ventricle. There is mild mitral annular calcification. Extension of the mitral annular calcification onto the base of the posterior mitral valve leaflet. Mild (1+) mitral valve insufficiency. Mild to moderate (1-2+) tricuspid valve insufficiency. Small pericardial effusion. There are no echocardiographic indications of cardiac tamponade. Right ventricular systolic pressure estimated to be 42 mmHg. Unable to assess diastolic dysfunction. Comment: a) of note: The previous transthoracic echocardiogram from 03-07-2018 demonstrated a bubble contrast study considered negative for right to left interatrial shunt b) compared to the previous transthoracic echocardiogram from 03-07-2018 and 03/17/2017, with respect to the concern of pericardial effusion, there appear to be similar type findings Ordering Physician: Chloe Robison Referring Physician: Osmin Castillo Performed By: Yesica Serrano, RDCS, RVT
--- NOTE | 2021-07-20 16:20 | PHA.PHARE_ITS ---
Consult Pharmacy has been consulted to manage selected antiobiotic: Vancomycin Type of Consult: New start Prior Doses of Antibiotics Received/Current Regimen: received vanc 1500mg IV x1 in E.R. at 00:53 early this morning Labs: Sodium 136 mmol/L (136-145) 07/20/21 05:20 Potassium 3.9 mmol/L (3.5-5.1) 07/20/21 05:20 Chloride 102 mmol/L (98-107) 07/20/21 05:20 Carbon Dioxide 28.0 mmol/L (21.0-32.0) 07/20/21 05:20 Anion Gap 6 (5-15) 07/20/21 05:20 BUN 16 mg/dL (7-18) 07/20/21 05:20 Creatinine 0.98 mg/dL (0.55-1.02) 07/20/21 05:20 Est GFR (MDRD) Af Amer 76 mL/min (>60) 07/20/21 05:20 Est GFR (MDRD) Non-Af 63 mL/min (>60) 07/20/21 05:20 BUN/Creatinine Ratio 16.3 RATIO (10-20) 07/20/21 05:20 Glucose 267 mg/dL (74-106) H 07/20/21 05:20 Microbiology: Microbiology 07/20/21 13:16 Mucosa - Nasopharyngeal Respiratory Panel (PCR) - Final 07/20/21 02:55 Urine, Random Legionella Antigen - Final 07/20/21 02:55 Urine, Random Streptococcus pneumoniae Antigen (M - Final 07/19/21 19:50 Mucosa - Nasopharyngeal Influenza Types A,B Direct FA (MELVINA) - Final Weight used for dosin.5 kg Estimated Creatinine Clearance: 78.9ml/min Goal Trough: 15-20 mcg/mL Pharmacy Plan for Drug Dosing: The patient received a dose in E.R. early this morning so will not load again. Will continue with 1500mg IV q12h per [facility] protocol based on the patient's weight and CrCl. The patient's CrCl of 78.9ml/min was calculated using an adjusted body weight of 77.1kg. Nursing is having trouble getting IV access this afternoon but will start the next dose as soon as possible. Will check a trough level before the 4th total dose tomorrow evening. Pharmacy Service will continue to monitor and adjust dosing as required. Follow-Up Labs: Trough Vancomycin Labs to be done on [date and time ordered]: 07/21/21 before PM dose
[2021-07-20 17:15] LABS: Bedside Glucose 229 mg/dL (74-106)
[2021-07-20] MEDS: Budesonide Respules 0.5 MG/2 ML AMPUL.NEB. INHALATION (19:43)
[2021-07-20 21:25] LABS: Bedside Glucose 284 mg/dL (74-106)
--- NOTE | 2021-07-20 23:23 | NURSING ---
Pt SPO2 sitting between 89-90 with pulse of 113, repository putting 50% 12 L ventimask
--- NOTE | 2021-07-20 23:50 | NURSING ---
Wearing Ventimask stating at 93% on 50% 12L.
[2021-07-21] VITALS (15 sets, daily range): BP systolic 100–135; BP diastolic 67–78; PULSE 81–97; RESP 12–32; TEMP 36.5–37; O2SAT 92–97
[2021-07-21] MEDS: Acetaminophen 325 MG Tablet 650 MG PO (01:48)
--- NOTE | 2021-07-21 02:55 | CPS ---
Patient placed on 50% Venti mask at this time for mouth breathing and desaturation while sleeping; Patient is supposed to wear a CPAP machine as she has one at home, but states she has been noncompliant with that for the last four months. When the patient is asked by RT if she would like to use one of our machines for nocturnal use while she is here she states that she does not because our machines are loud and uncomfortable.
--- NOTE | 2021-07-21 02:58 | CPS ---
RT placed patient on BIPAP at this time per request of RN. RN at bedside called RT for patient desat and complaints of nosebleed on venti mask. The patient states shes is now willing to wear the BIPAP since the Venti mask is not working to keep her sats up while she sleeps and she feels it is drying out her sinuses. RT has patient on 14/11 R12 50% FiO2 via the V60 BIPAP at this time. RN aware of settings. Patient's now satting 92% on these settings.
[2021-07-21 06:01] LABS: Absolute Lymphocyte Count 0.46 X10^3/uL (0.83-4.51); Absolute Neutrophil Count 8.7 X10^3/uL (2.0-7.7); Basophil# 0.03 X10^3/uL; Basophil% 0.3 % (0-1); Eosinophil# 0.08 X10^3/uL; Eosinophils% 0.8 % (0-5); Hematocrit 29.9 % (37-47); Hemoglobin 9.1 g/dL (12.0-15.0); Lymphocyte # 0.46 X10^3/ul (0.83-4.51); Lymphocyte % 4.4 % (19-41); Mean Corp Hgb Conc 30.4 g/dL (32-36); Mean Corpuscular Hgb 25.6 pg (27.0-32.0); Mean Corpuscular Volume 84.2 fL (81-99); Mean Platelet Vol. 11.1 fl (6.2-12.0); Monocyte# 1.04 X10^3/uL; NRBC Flagged by Analyzer 0 % (0-5); Neutrophil # 8.68 X10^3/uL (2.7-7.7); Neutrophil % 83.8 % (47-70); POSITIVE DIFFERENTIAL YES; Platelet Count 366 K/mm3 (150-450); RBC Distribution Width CV 14.5 % (11.6-14.6); RBC Distribution Width SD 44.5 fl (35.1-43.9); Red Blood Count 3.55 M/mm3 (4.2-5.4); White Blood Count 10.4 K/mm3 (4.4-11.0)
[2021-07-21 06:08] LABS: Differential Indicated SCAN CRITERIA MET
[2021-07-21 06:19] LABS: Differential Comment SCANNED; Hypochromasia 1+; Polychromasia RARE
--- NOTE | 2021-07-21 06:24 | PN.CC_ITS ---
Assessment & Plan Assessment/Plan (1) Acute hypoxemic respiratory failure: PLAN: RECOMMENDATIONS: 1. Wean supplemental oxygen to maintain saturations at or above 90%. 2. Continue broad-spectrum antimicrobial coverage. 3. Aggressive bronchopulmonary hygiene. Continue incentive spirometry and start PEP therapy. 4. Obtain and send sputum for culture. 5. Continue bronchodilator therapy. IMPRESSIONS: 1. Acute hypoxemic respiratory failure Most likely secondary to an occult pulmonary infectious process leading to an exacerbation of her asthma. The patient does not typically utilize supplemental oxygen at her baseline. Given her immunosuppressed state, I would recommend that we continue broadened antimicrobial coverage. She will be continued on bronchodilator therapy. Aggressive bronchopulmonary hygiene will be employed. Continue to wean supplemental oxygen as tolerated for saturations greater than 90%. Obtain and send sputum for culture. If the patient does not continue to improve from an oxygenation perspective bronchoscopy can be considered. 2. History of kidney transplantation/chronic immunosuppressed state Continue outpatient medication regimen. 3. Hypertension/neuropathy/diabetes mellitus/GERD Complicates care, management, recovery and prognosis. Continue home medications as indicated. This note was generated with [employer] dictation software. It may contain incorrect words, spelling, and punctuation that were not noted in checking the note before signing. Subjective Subjective The patient was seen and examined at the bedside this morning. Events from the last 24 hours have been reviewed. The patient is currently afebrile, hemodynamically stable and maintaining appropriate oxygen saturations on 4 L/min via nasal cannula. The patient is currently documented to be overall net +1.5 L for the hospitalization. The patient is sitting in her bedside recliner this morning and does report feeling improved from a breathing perspective. Objective Data Objective Data The patient's most recent lab work, culture data and imaging studies have all been personally reviewed. Surface echocardiogram demonstrated normal LV size and function with an ejection fraction of 70%. Right ventricular systolic pressure was estimated to be 42 mmHg. Small pericardial effusion was noted without any evidence of cardiac tamponade. Blood and urine cultures are pending. Strep and urine Legionella antigens were negative. Respiratory viral panel was negative. COVID PCR was negative. Vital Signs: Vital Signs Temp Pulse Resp BP Pulse Ox 98.2 F 96 16 122/69 H 92 07/21/21 03:09 07/21/21 03:17 07/21/21 03:09 07/21/21 03:09 07/21/21 03:09 Oxygen Flow Rate (L/min) 12 Oxygen Delivery Method Bi-pap Weight: 105.5 kg Body Mass Index (BMI) 38.1 Intake & Output: Intake and Output for Last 24 Hours 07/19/21 07/20/21 07/21/21 23:59 23:59 23:59 Intake Total 500 / 500 1970 / 1970 120 / 120 Output Total 750 / 750 350 / 350 Balance 500 / 500 1220 / 1220 -230 / -230 Lab / Micro Data Attestation: I reviewed the patient's lab results. Result Diagrams: 07/21/21 05:20 07/21/21 05:20 Labs: Laboratory Results - last 24 hr 07/20/21 05:20: Differential Comment SCANNED 07/20/21 05:20: Sodium 136, Potassium 3.9, Chloride 102, Carbon Dioxide 28.0, Anion Gap 6, BUN 16, Creatinine 0.98, Estim Creat Clear Calc 58.37, Est GFR (MDRD) Af Amer 76, Est GFR (MDRD) Non-Af 63, BUN/Creatinine Ratio 16.3, Glucose 267 H, Calcium 8.0 L 07/20/21 06:39: POC Glucose 267 H 07/20/21 11:42: POC Glucose 244 H 07/20/21 17:06: POC Glucose 229 H 07/20/21 20:58: POC Glucose 284 H 07/21/21 05:20: WBC 10.4, RBC 3.55 L, Hgb 9.1 L, Hct 29.9 L, MCV 84.2, MCH 25.6 L, MCHC 30.4 L, RDW Std Deviation 44.5 H, RDW Coeff of Frank 14.5, Plt Count 366, MPV 11.1, Immature Gran % (Auto) 0.700, Neut % (Auto) 83.8 H, Lymph % (Auto) 4.4 L, [place] % (Auto) 10.0, Eos % (Auto) 0.8, Baso % (Auto) 0.3, Absolute Neuts (auto) 8.7 H, Absolute Lymphs (auto) 0.46 L, Nucleated RBC % 0, Differential Comment SCANNED, Polychromasia RARE, Hypochromasia 1+ Micro: Microbiology 07/20/21 13:16 Mucosa - Nasopharyngeal Respiratory Panel (PCR) - Final 07/20/21 02:55 Urine, Random Legionella Antigen - Final 07/20/21 02:55 Urine, Random Streptococcus pneumoniae Antigen (M - Final 07/19/21 19:50 Mucosa - Nasopharyngeal Influenza Types A,B Direct FA (MELVINA) - Final Radiography Diagnostic Testing: Radiology Impression Chest CTA 07/20/21 08:14 IMPRESSION: 1. No CTA evidence of pulmonary thromboemboli, thoracic aortic aneurysm or dissection. 2. Right posterior lower lobe atelectases with air bronchograms. 3. Multiple subsegmental atelectatic changes in the left lower lobe, left upper lobe, right middle lobe, right upper lobe and right anterior lung base. 4. Moderate bilateral posterior pleural fluid, right more than left. 5. 2.2 cm thick right pericardial fluid and 1.9 cm thick left posterior pericardial fluid accounting for enlarged cardiac silhouette. 6. Minimal old central compression fracture of the T11 superior endplate. 7. The above are all new findings when compared to CT chest without contrast 04/12/2017. Electronically Signed: Crescencio Buenrostro MD at 9:42 EDT , Echocardiogram 07/20/21 10:56 Interpretation Summary Left ventricular systolic function is normal. The estimated ejection fraction is 70 %. Mildly dilated right ventricle. There is mild mitral annular calcification. Extension of the mitral annular calcification onto the base of the posterior mitral valve leaflet. Mild (1+) mitral valve insufficiency. Mild to moderate (1-2+) tricuspid valve insufficiency. Small pericardial effusion. There are no echocardiographic indications of cardiac tamponade. Right ventricular systolic pressure estimated to be 42 mmHg. Unable to assess diastolic dysfunction. Comment: a) of note: The previous transthoracic echocardiogram from 03-07-2018 demonstrated a bubble contrast study considered negative for right to left interatrial shunt b) compared to the previous transthoracic echocardiogram from 03-07-2018 and 03/17/2017, with respect to the concern of pericardial effusion, there appear to be similar type findings Ordering Physician: Chloe Robison Referring Physician: Osmin Castillo Performed By: Yesica Serrano, KAYLA, RVT Physical Exam Const alert and no apparent distress Constitutional Narrative: Sitting in bedside recliner. General Appearance: cooperative Nutritional Appearance: obese HEENT normocephalic, head/scalp atraumatic and moist oral mucous membranes Eyes PERRL, EOMs intact bilaterally and conjunctivae normal Neck supple General: trachea midline Chest inspection of chest normal Resp no use of accessory muscles Effort and Inspection: able to speak in complete sentences Auscultation: rales Cardio regular rate and regular rhythm GI normal to inspection, nondistended, normoactive bowel sounds Extremity no clubbing, cyanosis or edema Skin no rashes or lesions noted Neuro CN's II-XII intact bilaterally, moves all extremities and no focal motor deficits Psych cooperative and affect normal Charges/Coding Visit Charges Inpatient E&M: 84239 Subs Hosp L2
[2021-07-21] MEDS: Gabapentin 300 MG Capsule PO ×3 (06:29→21:49)
[2021-07-21 06:31] LABS: Bedside Glucose 167 mg/dL (74-106)
[2021-07-21 06:42] LABS: Anion Gap 7 (5-15); BUN 19 mg/dL (7-18); BUN/Creat Ratio 17.4 RATIO (10-20); Calcium,Total 8.4 mg/dL (8.5-10.1); Chloride 103 mmol/L (98-107); Creatinine, Serum 1.09 mg/dL (0.55-1.02); EST Glomerular Filtration Rate 55 mL/min (>60); Est Glom Filt Rate - Afr Amer 67 mL/min (>60); Estimated Creatinine Clearance 52.48 ml/min; Glucose 163 mg/dL (74-106); Potassium 3.8 mmol/L (3.5-5.1); Sodium Level 139 mmol/L (136-145)
[2021-07-21] MEDS: Insulin Lispro 100 UNIT/ML INSULN.PEN SC ×4 (06:58→21:55)
--- NOTE | 2021-07-21 07:23 | CPS ---
MOUTH RINSED POST TREATMENT.
--- NOTE | 2021-07-21 07:25 | CPS ---
PATIENT WEANED TO 6 LPM NC WITH HUMIDITY.
[2021-07-21] MEDS: Budesonide Respules 0.5 MG/2 ML AMPUL.NEB. INHALATION (07:30)
--- NOTE | 2021-07-21 09:01 | CPS ---
PATIENT WEANED TO 4 LPM.
--- NOTE | 2021-07-21 09:20 | PN.HOSP_ITS ---
Subjective Subjective Patient seen and examined. She says she feels much better today. She had an uneventful night. She is now down to 4L of oxygen. She also otherwise remained hemodynamically stable. CT of the chest done yesterday was negative for PE but did show a pericardial effusion as well as bilateral small pleural effusions sammie ateral atelectasis and infiltrates. Cardiology and pulmonology were consulted. She had an echo done which showed that her pericardial effusion was chronic. Objective Data Objective Data Vital Signs: Vital Signs Temp Pulse Resp BP Pulse Ox 97.7 F L 89 16 116/67 96 07/21/21 09:12 07/21/21 09:12 07/21/21 09:12 07/21/21 09:12 07/21/21 09:12 Oxygen Flow Rate (L/min) 3 Oxygen Delivery Method Nasal Cannula Weight: 232 lb 9.403 oz Body Mass Index (BMI) 38.1 Intake & Output: Intake and Output for Last 24 Hours 07/19/21 07/20/21 07/21/21 23:59 23:59 23:59 Intake Total 500 / 500 1970 / 1970 650 / 650 Output Total 750 / 750 550 / 550 Balance 500 / 500 1220 / 1220 100 / 100 Lab / Micro Data Result Diagrams: 07/21/21 05:20 07/21/21 05:20 Labs: Laboratory Results - last 24 hr 07/20/21 11:42: POC Glucose 244 H 07/20/21 17:06: POC Glucose 229 H 07/20/21 20:58: POC Glucose 284 H 07/21/21 05:20: WBC 10.4, RBC 3.55 L, Hgb 9.1 L, Hct 29.9 L, MCV 84.2, MCH 25.6 L, MCHC 30.4 L, RDW Std Deviation 44.5 H, RDW Coeff of Frank 14.5, Plt Count 366, MPV 11.1, Immature Gran % (Auto) 0.700, Neut % (Auto) 83.8 H, Lymph % (Auto) 4.4 L, [place] % (Auto) 10.0, Eos % (Auto) 0.8, Baso % (Auto) 0.3, Absolute Neuts (auto) 8.7 H, Absolute Lymphs (auto) 0.46 L, Nucleated RBC % 0, Differential Comment SCANNED, Polychromasia RARE, Hypochromasia 1+ 07/21/21 05:20: Sodium 139, Potassium 3.8, Chloride 103, Carbon Dioxide 29.0, Anion Gap 7, BUN 19 H, Creatinine 1.09 H, Estim Creat Clear Calc 52.48, Est GFR (MDRD) Af Amer 67, Est GFR (MDRD) Non-Af 55 L, BUN/Creatinine Ratio 17.4, Glucose 163 H, Calcium 8.4 L 07/21/21 06:26: POC Glucose 167 H Micro: Microbiology 07/20/21 13:16 Mucosa - Nasopharyngeal Respiratory Panel (PCR) - Final 07/20/21 02:55 Urine, Random Legionella Antigen - Final 07/20/21 02:55 Urine, Random Streptococcus pneumoniae Antigen (M - Final 07/19/21 19:50 Mucosa - Nasopharyngeal Influenza Types A,B Direct FA (MELVINA) - Final Radiography Diagnostic Testing: Radiology Impression Chest CTA 07/20/21 08:14 IMPRESSION: 1. No CTA evidence of pulmonary thromboemboli, thoracic aortic aneurysm or dissection. 2. Right posterior lower lobe atelectases with air bronchograms. 3. Multiple subsegmental atelectatic changes in the left lower lobe, left upper lobe, right middle lobe, right upper lobe and right anterior lung base. 4. Moderate bilateral posterior pleural fluid, right more than left. 5. 2.2 cm thick right pericardial fluid and 1.9 cm thick left posterior pericardial fluid accounting for enlarged cardiac silhouette. 6. Minimal old central compression fracture of the T11 superior endplate. 7. The above are all new findings when compared to CT chest without contrast 04/12/2017. Electronically Signed: Crescencio Buenrostro MD at 9:42 EDT , Echocardiogram 07/20/21 10:56 Interpretation Summary Left ventricular systolic function is normal. The estimated ejection fraction is 70 %. Mildly dilated right ventricle. There is mild mitral annular calcification. Extension of the mitral annular calcification onto the base of the posterior mitral valve leaflet. Mild (1+) mitral valve insufficiency. Mild to moderate (1-2+) tricuspid valve insufficiency. Small pericardial effusion. There are no echocardiographic indications of cardiac tamponade. Right ventricular systolic pressure estimated to be 42 mmHg. Unable to assess diastolic dysfunction. Comment: a) of note: The previous transthoracic echocardiogram from 03-07-2018 demonstrated a bubble contrast study considered negative for right to left interatrial shunt b) compared to the previous transthoracic echocardiogram from 03-07-2018 and 03/17/2017, with respect to the concern of pericardial effusion, there appear to be similar type findings Ordering Physician: Chloe Robison Referring Physician: Osmin Castillo Performed By: Yesica Serrano, KAYLA, RVT Physical Exam Const alert, oriented x3 and no apparent distress Exam Limitations: no limitations HEENT head/scalp atraumatic and moist oral mucous membranes Head and Scalp: normocephalic Eyes PERRL, EOMs intact bilaterally and conjunctivae normal Neck no lymphadenopathy, supple and no JVD Resp Resp Narrative: diminished breath sounds bibasally, mild wheezing and crackles. on 4L of oxygen by nasal canula Cardio regular rate, regular rhythm, S1 normal heart sound, S2 normal heart sound and no murmurs GI normal to inspection, nondistended, normoactive bowel sounds, soft to palpation, non-tender and non-distended Extremity normal to inspection, full ROM and no clubbing, cyanosis or edema Peripheral Pulses: Yes pulses 2+ throughout Skin no rashes or lesions noted Neuro oriented x3, CN's II-XII intact bilaterally and moves all extremities Sensorium / Orientation: awake and alert Psych affect normal Assessment & Plan Assessment/Plan (1) Acute hypoxemic respiratory failure: PLAN: #Acute hypoxic respiratory failure due to pneumonia and pericardial effusion as well as pleural effusion * now down to 4L of oxygen by nasal canula * antibiotics broadened to IV vancomycin and meropenem * CTA was obtained which was negative for blood clots but showed bilateral posterior pleural fluid and right posterior lobe atelectasis as well as multiple segmental atelectatic changes in the left lower lobe, left upper lobe and right middle as well as right upper lobe. She also had a 2.2 cm thick right pericardial fluid and 1.9 cm thick left posterior pericardial fluid. * Cardiology and pulmonology on board * 2D echo showed EF of 70% with normal left ventricular systolic function and mildly dilated right ventricle and small pericardial effusion with no echocardiographic indication of cardiac tamponade and RVSP of 42 mmHg. * Breathing treatments of bronchodilators. Titrate oxygen to maintain satu ration above 90%. * Sputum culture ordered and pending. * per cardiology, review of previous imaging showed that the pericardial effusion is chronic. * #History of ESRD with kidney transplant * Stable. Creatinine is 1.09. Will monitor * #Type 2 diabetes mellitus: On basal insulin. On glipizide. Insulin sliding scale. Checks AC at bedtime. #Hypertension: On amlodipine IV hydralazine as needed #Obstructive sleep apnea: On CPAP nightly DVT prophylaxis: Lovenox Charges/Coding Visit Charges Inpatient E&M: 50899 Subs Hosp L2
[2021-07-21] MEDS: Mycophenolate Mofetil 250 MG Capsule 750 MG PO ×2 (09:28→21:48)
[2021-07-21] MEDS: Magnesium Chloride 64 MG Delay Rel.Tablet 128 MG PO ×2 (09:28→21:49)
[2021-07-21] MEDS: glipiZIDE 10 MG Tablet PO (09:28)
[2021-07-21] MEDS: amLODIPine 5 MG Tablet PO (09:28)
[2021-07-21] MEDS: Aspirin E.C. 81 MG Tablet PO (09:29)
[2021-07-21] MEDS: Loratadine 10 MG Tablet PO (09:29)
[2021-07-21] MEDS: Enoxaparin 40 MG/0.4 ML Syringe SC (09:29)
[2021-07-21] MEDS: Multivitamins,Therapeutic Tablet 1 TABLET PO (09:29)
[2021-07-21] MEDS: predniSONE 5 MG Tablet PO (09:29)
[2021-07-21] MEDS: Tacrolimus Anhydrous 1 MG Capsule 2 MG PO (09:30)
[2021-07-21 13:00] LABS: Bedside Glucose 189 mg/dL (74-106)
--- NOTE | 2021-07-21 13:41 | CON.PCM.ID_ITS ---
Assessment & Plan Assessment/Plan (1) Pericardial effusion: (2) Acute hypoxemic respiratory failure: (3) Pneumonia: QUALIFIERS: Pneumonia type: due to unspecified organism Laterality: bilateral Lung location: unspecified part of lung Qualified Code(s): J18.9 - Pneumonia, unspecified organism PLAN: Rapidly improved. Cxs neg so far, UAg neg, covid neg, resp pcr panel neg. MRSA pcr was neg, will stop vanc. Not producing sputum. Reports oral swelling with PCN, but thinks has taken amoxicillin without issue. Will narrow meropenem to ceftriaxone and monitor. On bactrim SS daily for prophylaxis, will need restart at discharge. Will follow, thank you (4) S/P kidney transplant: HPI Consult Data Date of Consult: 07/21/21 HPI Narrative HPI Narrative: DORIS EDWARD, is a 56 F with h/o donor kidney transplant in 08/2020 at [facility]. No issues with rejection or infection. No recent changes in immunosuppression. Is on bactrim SS daily for prophylaxis. Reports about 1.5 weeks of severe fatigue, increased dyspnea, dry cough, sore throat, not feeling well. Covid vaccine x1. No sick contacts. No change in taste or smell. No aches except in shoulder/chest from coughing. Had diarrhea x3 prior to admission on 07/19. Admitted on levaquin/aztreo, changed to vanc/ernie. Feeling dramatically better today. Reports oral swelling with PCN, but thinks has taken amoxicillin without issue. Full ROS performed and neg except as noted above. [facility] Medical History (Updated 07/20/21 @ 16:[address] Doe Wilson MD) Cellulitis of toe of left foot Chronic renal insufficiency, stage IV (severe) Chronic ulcer of left foot with necrosis of muscle Chronic ulcer of right great toe with fat layer exposed Delayed wound healing Diabetes mellitus type 2, uncontrolled Diabetes mellitus with polyneuropathy Diabetic foot ulcer Diabetic neuropathy Diabetic ulcer of left great toe Diarrhea in adult patient (~02/2016) Edema of left lower extremity Gait instability GERD (gastroesophageal reflux disease) History of amputation of hallux Hypertension Iron deficiency anemia Malnutrition MRSA (methicillin resistant staph aureus) culture positive Osteomyelitis of ankle or foot Pericardial effusion Puncture wound of toe of left foot Vaginal candidiasis Venous insufficiency Home Medications loperamide 2 mg PO BID PRN 03/07/18 [History Last Taken 07/06/20] ferrous sulfate 325 mg PO DAILY 03/10/20 [History Last Taken 07/07/20] carisoprodol 350 mg PO DAILY 05/21/20 [History Last Taken Unknown] multivitamin 1 tab PO DAILY 05/21/20 [History Last Taken Unknown] glipizide 5 mg PO BREAKFAST #30 tablet 07/10/20 [Rx Last Taken Unknown] loratadine 10 mg tablet 10 mg PO DAILY tab 08/13/20 [History Last Taken Unknow n] amlodipine 5 mg tablet 5 mg PO DAILY tab 11/04/20 [History Last Taken Unknown] aspirin 81 mg tablet,delayed release 81 mg PO DAILY tab 11/04/20 [History Last Taken Unknown] fluticasone propionate 220 mcg/actuation HFA aerosol inhaler 2 puff INHALATION BID #12 g 11/04/20 [Rx Last Taken Unknown] furosemide 40 mg tablet 40 mg PO DAILY PRN tab 11/04/20 [History Last Taken Unknown] magnesium chloride 71.5 mg (magnesium chloride) tablet,delayed release 71.5 mg PO DAILY tab 11/04/20 [History Last Taken Unknown] mycophenolate mofetil 250 mg capsule 750 mg PO BID cap 11/04/20 [History Last Taken Unknown] omeprazole 20 mg capsule,delayed release 40 mg PO BID cap 11/04/20 [History Last Taken Unknown] prednisone 5 mg tablet 5 mg PO DAILY tab 11/04/20 [History Last Taken Unknown] semaglutide 0.25 mg SUBCUT QWEEK ml 11/04/20 [History Last Taken Unknown] tacrolimus 1 mg capsule, immediate-release 1 mg PO DAILY cap 11/04/20 [History Last Taken Unknown] biotin 10,000 mcg capsule 10,000 mcg PO DAILY cap 01/11/21 [History Last Taken Unknown] albuterol sulfate 90 mcg/actuation aerosol inhaler 2 puff INHALATION Q6H PRN #8.5 g 04/19/21 [Rx Last Taken Unknown] dicyclomine 10 mg PO TID 07/19/21 [History Last Taken Unknown] gabapentin 300 mg TID 07/19/21 [History Last Taken Unknown] insulin glargine [Lantus Solostar U-100 Insulin] 10 unit SUBCUT QHS 07/19/21 [History Last Taken Unknown] Allergy/AdvReac Type Severity Reaction Status Date / Time Latex, Natural Rubber Allergy Severe Rash Verified 07/19/21 17:58 Penicillins Allergy Severe Swelling Verified 07/19/21 17:58 lactose AdvReac Severe Diarrhea Verified 07/19/21 17:58 Family History Mother Diabetes Heart disease Hypertension Father Diabetes Heart disease Hypertension Brother Diabetes Hypertension Heart disease Surgical History Amputated toe H/O: hysterectomy History of section History of colonoscopy (~02/2016) History of esophagogastroduodenoscopy (EGD) Hx of cardiac catheterization Kidney transplant recipient S/P laparoscopic cholecystectomy (~06/2018) Social History Smoking Status: Never smoker second hand exposure: No alcohol intake: never substance use type: does not use caffeine: No what type of physical activity do you participate in: none frequency: does not exercise Physical Exam Const alert, oriented x3 and no apparent distress General Appearance: cooperative Exam Limitations: no limitations HEENT normocephalic and head/scalp atraumatic Eyes PERRL and EOMs intact bilaterally Neck supple and No nodes Resp normal air movement and clear to auscultation bilaterally Auscultation: diminished lung sounds Cardio regular rate and regular rhythm GI soft to palpation, non-tender and non-distended Extremity no clubbing, cyanosis or edema Skin no rashes or lesions noted Neuro CN's II-XII intact bilaterally Lab / Micro Data Result Diagrams: 07/21/21 05:20 07/21/21 05:20 Labs: Laboratory Results - last 24 hr 07/20/21 17:06: POC Glucose 229 H 07/20/21 20:58: POC Glucose 284 H 07/21/21 05:20: WBC 10.4, RBC 3.55 L, Hgb 9.1 L, Hct 29.9 L, MCV 84.2, MCH 25.6 L, MCHC 30.4 L, RDW Std Deviation 44.5 H, RDW Coeff of Frank 14.5, Plt Count 366, MPV 11.1, Immature Gran % (Auto) 0.700, Neut % (Auto) 83.8 H, Lymph % (Auto) 4.4 L, [place] % (Auto) 10.0, Eos % (Auto) 0.8, Baso % (Auto) 0.3, Absolute Neuts (auto) 8.7 H, Absolute Lymphs (auto) 0.46 L, Nucleated RBC % 0, Differential Comment SCANNED, Polychromasia RARE, Hypochromasia 1+ 07/21/21 05:20: Sodium 139, Potassium 3.8, Chloride 103, Carbon Dioxide 29.0, Anion Gap 7, BUN 19 H, Creatinine 1.09 H, Estim Creat Clear Calc 52.48, Est GFR (MDRD) Af Amer 67, Est GFR (MDRD) Non-Af 55 L, BUN/Creatinine Ratio 17.4, Glucose 163 H, Calcium 8.4 L 07/21/21 06:26: POC Glucose 167 H 07/21/21 12:55: POC Glucose 189 H Micro: Microbiology 07/20/21 13:16 Mucosa - Nasopharyngeal Respiratory Panel (PCR) - Final 07/20/21 02:55 Urine, Random Legionella Antigen - Final 07/20/21 02:55 Urine, Random Streptococcus pneumoniae Antigen (M - Final
[2021-07-21] MEDS: 0.9% Saline Lock 10 ML Syringe IV (16:46)
[2021-07-21 16:55] LABS: Bedside Glucose 202 mg/dL (74-106)
[2021-07-21 20:50] LABS: Bedside Glucose 214 mg/dL (74-106)
[2021-07-21] MEDS: Tacrolimus Anhydrous 1 MG Capsule PO (21:49)
[2021-07-21] MEDS: Insulin Glargine-YFGN 100 UNIT/ML Pen 25 UNIT SC (21:54)
[2021-07-21] MEDS: Pantoprazole Sodium 40 MG Tablet PO (22:06)
[2021-07-22] VITALS (15 sets, daily range): BP systolic 120–148; BP diastolic 67–94; PULSE 86–114; RESP 16–20; TEMP 36.2–36.8; O2SAT 88–98
[2021-07-22] MEDS: Acetaminophen 325 MG Tablet 650 MG PO (03:03)
[2021-07-22 06:10] LABS: Absolute Lymphocyte Count 0.55 X10^3/uL (0.83-4.51); Absolute Neutrophil Count 7.5 X10^3/uL (2.0-7.7); Basophil# 0.03 X10^3/uL; Basophil% 0.3 % (0-1); Eosinophil# 0.15 X10^3/uL; Eosinophils% 1.7 % (0-5); Hematocrit 31.6 % (37-47); Hemoglobin 9.5 g/dL (12.0-15.0); Lymphocyte # 0.55 X10^3/ul (0.83-4.51); Lymphocyte % 6.1 % (19-41); Mean Corp Hgb Conc 30.1 g/dL (32-36); Mean Corpuscular Hgb 25.7 pg (27.0-32.0); Mean Corpuscular Volume 85.6 fL (81-99); Monocyte# 0.77 X10^3/uL; Monocyte% 8.5 % (0-10); NRBC Flagged by Analyzer 0 % (0-5); Neutrophil # 7.51 X10^3/uL (2.7-7.7); Neutrophil % 82.7 % (47-70); POSITIVE DIFFERENTIAL YES; Platelet Count 420 K/mm3 (150-450); RBC Distribution Width CV 14.6 % (11.6-14.6); RBC Distribution Width SD 44.9 fl (35.1-43.9); Red Blood Count 3.69 M/mm3 (4.2-5.4); White Blood Count 9.1 K/mm3 (4.4-11.0)
[2021-07-22 06:17] LABS: Differential Indicated SCAN CRITERIA MET
[2021-07-22] MEDS: Gabapentin 300 MG Capsule PO ×2 (06:29→20:23)
[2021-07-22] MEDS: Insulin Lispro 100 UNIT/ML INSULN.PEN SC ×4 (06:33→20:22)
[2021-07-22 06:35] LABS: Anion Gap 5 (5-15); BUN 22 mg/dL (7-18); BUN/Creat Ratio 20.8 RATIO (10-20); Calcium,Total 8.3 mg/dL (8.5-10.1); Chloride 105 mmol/L (98-107); Creatinine, Serum 1.06 mg/dL (0.55-1.02); EST Glomerular Filtration Rate 57 mL/min (>60); Est Glom Filt Rate - Afr Amer 69 mL/min (>60); Estimated Creatinine Clearance 53.96 ml/min; Glucose 157 mg/dL (74-106); Potassium 3.8 mmol/L (3.5-5.1); Sodium Level 139 mmol/L (136-145)
[2021-07-22 06:39] LABS: Differential Comment SCANNED
[2021-07-22 06:41] LABS: Bedside Glucose 153 mg/dL (74-106)
[2021-07-22] MEDS: Budesonide Respules 0.5 MG/2 ML AMPUL.NEB. INHALATION ×2 (07:19→18:48)
[2021-07-22] MEDS: Enoxaparin 40 MG/0.4 ML Syringe SC (09:44)
[2021-07-22] MEDS: Tacrolimus Anhydrous 1 MG Capsule 2 MG PO (09:44)
[2021-07-22] MEDS: Mycophenolate Mofetil 250 MG Capsule 750 MG PO ×2 (09:44→20:23)
[2021-07-22] MEDS: Pantoprazole Sodium 40 MG Tablet PO (09:45)
[2021-07-22] MEDS: amLODIPine 5 MG Tablet PO (09:45)
[2021-07-22] MEDS: Aspirin E.C. 81 MG Tablet PO (09:45)
[2021-07-22] MEDS: Loratadine 10 MG Tablet PO (09:45)
[2021-07-22] MEDS: Multivitamins,Therapeutic Tablet 1 TABLET PO (09:45)
[2021-07-22] MEDS: predniSONE 5 MG Tablet PO (09:45)
[2021-07-22] MEDS: glipiZIDE 10 MG Tablet PO (09:45)
--- NOTE | 2021-07-22 10:16 | PN.HOSP_ITS ---
Subjective Subjective Patient seen and examined. She said she felt much better today. Her breathing has improved markedly. She is still coughing and she says it is still productive, but it is much better. Review of systems is otherwise negative. Objective Data Objective Data Vital Signs: Vital Signs Temp Pulse Resp BP Pulse Ox 98.3 F 93 19 H 132/72 H 91 07/22/21 02:56 07/22/21 07:20 07/22/21 07:20 07/22/21 02:56 07/22/21 07:20 Oxygen Flow Rate (L/min) 3 Oxygen Delivery Method Nasal Cannula Weight: 232 lb 9.403 oz Body Mass Index (BMI) 38.1 Intake & Output: Intake and Output for Last 24 Hours 07/20/21 07/21/21 07/22/21 23:59 23:59 23:59 Intake Total 1970 / 1970 1900 / 1900 Output Total 750 / 750 550 / 550 Balance 1220 / 1220 1350 / 1350 Lab / Micro Data Result Diagrams: 07/22/21 05:35 07/22/21 05:35 Labs: Laboratory Results - last 24 hr 07/21/21 12:55: POC Glucose 189 H 07/21/21 16:45: POC Glucose 202 H 07/21/21 20:43: POC Glucose 214 H 07/22/21 05:35: WBC 9.1, RBC 3.69 L, Hgb 9.5 L, Hct 31.6 L, MCV 85.6, MCH 25.7 L , MCHC 30.1 L, RDW Std Deviation 44.9 H, RDW Coeff of Frank 14.6, Plt Count 420, MPV 11.0, Immature Gran % (Auto) 0.700, Neut % (Auto) 82.7 H, Lymph % (Auto) 6.1 L, [place] % (Auto) 8.5, Eos % (Auto) 1.7, Baso % (Auto) 0.3, Absolute Neuts (auto) 7.5, Absolute Lymphs (auto) 0.55 L, Nucleated RBC % 0, Differential Comment SCANNED 07/22/21 05:35: Sodium 139, Potassium 3.8, Chloride 105, Carbon Dioxide 29.0, Anion Gap 5, BUN 22 H, Creatinine 1.06 H, Estim Creat Clear Calc 53.96, Est GFR (MDRD) Af Amer 69, Est GFR (MDRD) Non-Af 57 L, BUN/Creatinine Ratio 20.8 H, Glucose 157 H, Calcium 8.3 L 07/22/21 06:32: POC Glucose 153 H Micro: Microbiology 07/20/21 02:15 Urine, Clean Catch Urine Culture - Final Presumptive Lactobacillus sp. Mixed Gram Positive Organisms 07/20/21 13:16 Mucosa - Nasopharyngeal Respiratory Panel (PCR) - Final 07/20/21 02:55 Urine, Random Legionella Antigen - Final 07/20/21 02:55 Urine, Random Streptococcus pneumoniae Antigen (M - Final 07/19/21 19:50 Mucosa - Nasopharyngeal Influenza Types A,B Direct FA (MELVINA) - Final Physical Exam Const alert, oriented x3 and no apparent distress Exam Limitations: no limitations HEENT head/scalp atraumatic and moist oral mucous membranes Head and Scalp: normocephalic Eyes PERRL, EOMs intact bilaterally and conjunctivae normal Neck no lymphadenopathy, supple and no JVD Resp Resp Narrative: diminished breath sounds bibasally, mild wheezing and crackles. on 2L of oxygen by nasal canula Cardio regular rate, regular rhythm, S1 normal heart sound, S2 normal heart sound and no murmurs GI normal to inspection, nondistended, normoactive bowel sounds, soft to palpation, non-tender and non-distended Extremity normal to inspection, full ROM and no clubbing, cyanosis or edema Peripheral Pulses: Yes pulses 2+ throughout Skin no rashes or lesions noted Neuro oriented x3, CN's II-XII intact bilaterally and moves all extremities Sensorium / Orientation: awake and alert Psych affect normal Assessment & Plan Assessment/Plan (1) Acute hypoxemic respiratory failure: PLAN: #Acute hypoxic respiratory failure due to pneumonia and pericardial effusion as well as pleural effusion * now down to 2L of oxygen by nasal canula * CTA was obtained which was negative for blood clots but showed bilateral posterior pleural fluid and right posterior lobe atelectasis as well as multiple segmental atelectatic changes in the left lower lobe, left upper lobe and right middle as well as right upper lobe. She also had a 2.2 cm thick right pericardial fluid and 1.9 cm thick left posterior pericardial fluid. * Cardiology and pulmonology on board * 2D echo showed EF of 70% with normal left ventricular systolic function and mildly dilated right ventricle and small pericardial effusion with no echocardiographic indication of cardiac tamponade and RVSP of 42 mmHg. * Breathing treatments of bronchodilators. Titrate oxygen to maintain saturation above 90%. * ID on board: stopped vancomycin and meropenem changed to IV ceftriaxone * Sputum culture negative. * per cardiology, review of previous imaging showed that the pericardial effusion is chronic. * titrate oxygen to maintain sats >905 * #History of ESRD with kidney transplant * Stable. Creatinine is 1.06. Will monitor * on bactrim for prophylaxis; which will need to be resumed upon discharge. * #Type 2 diabetes mellitus: On basal insulin. On glipizide. Insulin sliding scale. Checks AC at bedtime. #Hypertension: On amlodipine IV hydralazine as needed #Obstructive sleep apnea: On CPAP nightly DVT prophylaxis: Lovenox Charges/Coding Visit Charges Inpatient E&M: 65218 Subs Hosp L2
[2021-07-22 11:40] LABS: Bedside Glucose 186 mg/dL (74-106)
--- NOTE | 2021-07-22 12:02 | PCM.PN.INT ---
Assessment & Plan Assessment/Plan (1) Acute hypoxemic respiratory failure: PLAN: RECOMMENDATIONS: 1. Wean supplemental oxygen to maintain saturations at or above 90%. 2. Continue antimicrobials per ID recommendations. 3. Aggressive bronchopulmonary hygiene. Continue incentive spirometry and PEP therapy. 4. Continue bronchodilator therapy. IMPRESSIONS: 1. Acute hypoxemic respiratory failure Most likely secondary to an occult pulmonary infectious process leading to an exacerbation of her asthma. The patient does not typically utilize supplemental oxygen at her baseline. Given her immunosuppressed state, will continue antimicrobial coverage per ID recommendations. She will be continued on bronchodilator therapy. Aggressive bronchopulmonary hygiene will be employed. Continue to wean supplemental oxygen as tolerated for saturations greater than 90%. 2. History of kidney transplantation/chronic immunosuppressed state Continue outpatient medication regimen. 3. Hypertension/neuropathy/diabetes mellitus/GERD Complicates care, management, recovery and prognosis. Continue home medications as indicated. This note was generated with [employer] dictation software. It may contain incorrect words, spelling, and punctuation that were not noted in checking the note before signing. Subjective Subjective The patient was seen and examined at the bedside this morning. Events from the last 24 hours have been reviewed. The patient is currently afebrile, hemodynamically stable and maintaining appropriate oxygen saturations on 3 L/min via nasal cannula. The patient is currently documented to be overall net +3 L for the hospitalization. The patient still has a residual cough. Objective Data Objective Data The patient's most recent lab work, culture data and imaging studies have all been personally reviewed. Surface echocardiogram demonstrated normal LV size and function with an ejection fraction of 70%. Right ventricular systolic pressure was estimated to be 42 mmHg. Small pericardial effusion was noted without any evidence of cardiac tamponade. Blood and urine cultures are pending. Strep and urine Legionella antigens were negative. Respiratory viral panel was negative. COVID PCR was negative. Vital Signs: Vital Signs Temp Pulse Resp BP Pulse Ox 97.9 F 93 18 120/67 95 07/22/21 09:00 07/22/21 09:00 07/22/21 09:00 07/22/21 09:00 07/22/21 09:00 Oxygen Flow Rate (L/min) 3 Oxygen Delivery Method Nasal Cannula Weight: 105.5 kg Body Mass Index (BMI) 38.1 Intake & Output: Intake and Output for Last 24 Hours 04/07/21/21 07/22/21 23:59 23:59 23:59 Intake Total 1969 / 1969 1900 / 1900 50 / 50 Output Total 750 / 750 550 / 550 Balance 1220 / 1220 1350 / 1350 50 / 50 Lab / Micro Data Attestation: I reviewed the patient's lab results. Result Diagrams: 07/22/21 05:35 07/22/21 05:35 Labs: Laboratory Results - last 24 hr 07/21/21 12:55: POC Glucose 189 H 07/21/21 16:45: POC Glucose 202 H 07/21/21 20:43: POC Glucose 214 H 07/22/21 05:35: WBC 9.1, RBC 3.69 L, Hgb 9.5 L, Hct 31.6 L, MCV 85.6, MCH 25.7 L, MCHC 30.1 L, RDW Std Deviation 44.9 H, RDW Coeff of Frank 14.6, Plt Count 420, MPV 11.0, Immature Gran % (Auto) 0.700, Neut % (Auto) 82.7 H, Lymph % (Auto) 6.1 L, [place] % (Auto) 8.5, Eos % (Auto) 1.7, Baso % (Auto) 0.3, Absolute Neuts (auto) 7.5, Absolute Lymphs (auto) 0.55 L, Nucleated RBC % 0, Differential Comment SCANNED 07/22/21 05:35: Sodium 139, Potassium 3.8, Chloride 105, Carbon Dioxide 29.0, Anion Gap 5, BUN 22 H, Creatinine 1.06 H, Estim Creat Clear Calc 53.96, Est GFR (MDRD) Af Amer 69, Est GFR (MDRD) Non-Af 57 L, BUN/Creatinine Ratio 20.8 H, Glucose 157 H, Calcium 8.3 L 07/22/21 06:32: POC Glucose 153 H 07/22/21 11:31: POC Glucose 186 H Micro: Microbiology 07/19/21 20:40 Blood Culture (Wb) - Right Hand Blood Culture - Preliminary No growth in 48 hours. 07/19/21 20:30 Blood Culture (Wb) - Anticubital Right Blood Culture - Preliminary No growth in 48 hours. 07/20/21 02:15 Urine, Clean Catch Urine Culture - Final Presumptive Lactobacillus sp. Mixed Gram Positive Organisms 07/20/21 13:16 Mucosa - Nasopharyngeal Respiratory Panel (PCR) - Final 07/20/21 02:55 Urine, Random Legionella Antigen - Final 07/20/21 02:55 Urine, Random Streptococcus pneumoniae Antigen (M - Final 07/19/21 19:50 Mucosa - Nasopharyngeal Influenza Types A,B Direct FA (MELVINA) - Final Physical Exam Const alert and no apparent distress Constitutional Narrative: Sitting in bedside recliner. General Appearance: cooperative Nutritional Appearance: obese HEENT normocephalic, head/scalp atraumatic and moist oral mucous membranes Eyes PERRL, EOMs intact bilaterally and conjunctivae normal Neck supple General: trachea midline Chest inspection of chest normal Resp normal respiratory effort and no use of accessory muscles Effort and Inspection: able to speak in complete sentences Auscultation: rales and wheezes Cardio regular rate and regular rhythm GI normal to inspection, nondistended, normoactive bowel sounds Extremity no clubbing, cyanosis or edema Skin no rashes or lesions noted Neuro CN's II-XII intact bilaterally, moves all extremities and no focal motor deficits Psych cooperative and affect normal Charges/Coding Visit Charges Inpatient E&M: 42395 Subs Hosp L2
--- NOTE | 2021-07-22 13:18 | CASEMGMT ---
Pt is down to 2L nc at rest. This RN CM to room and pt states no preference for DME company at discharge, if pt qualifies. S[place]en RN CM
--- NOTE | 2021-07-22 14:47 | PCM.PN.ID ---
Physical Exam Narrative Feeling much better. No fever, O2 improved, no rash, no n/v/d. Const alert and no apparent distress General Appearance: cooperative Resp normal air movement and clear to auscultation bilaterally Cardio regular rate and regular rhythm GI soft to palpation, non-tender and non-distended Extremity no clubbing, cyanosis or edema Skin no rashes or lesions noted ID ID: Route of nutrition/ use of supplements: [] Nutritional Intake: [] IV Site: [] Pike Catheter: [] Assessment & Plan Assessment/Plan (1) Pericardial effusion: (2) Acute hypoxemic respiratory failure: (3) Pneumonia: QUALIFIERS: Pneumonia type: due to unspecified organism Laterality: bilateral Lung location: unspecified part of lung Qualified Code(s): J18.9 - Pneumonia, unspecified organism PLAN: Rapidly improved. Cxs neg so far, UAg neg, covid neg, resp pcr panel neg. MRSA pcr was neg. Reports oral swelling with PCN, but thinks has taken amoxicillin without issue. Tolerating ceftriaxone well. On bactrim SS daily for prophylaxis, will need restart at discharge. Plan on d/c home with po cefdinir 300mg bid for 3 more days. Will follow (4) S/P kidney transplant:
[2021-07-22 17:15] LABS: Bedside Glucose 249 mg/dL (74-106)
[2021-07-22] MEDS: Loperamide 2 MG Capsule PO (17:46)
--- NOTE | 2021-07-22 18:43 | NURSING ---
Reviewed charting with Truman Salazar RN
[2021-07-22] MEDS: Tacrolimus Anhydrous 1 MG Capsule PO (20:26)
[2021-07-22] MEDS: Insulin Glargine-YFGN 100 UNIT/ML Pen 25 UNIT SC (20:30)
[2021-07-22 20:35] LABS: Bedside Glucose 264 mg/dL (74-106)
--- NOTE | 2021-07-22 22:00 | CPS ---
pt refusing bipap currently
[2021-07-23] VITALS (7 sets, daily range): BP systolic 125–140; BP diastolic 67–74; PULSE 89–110; RESP 16–20; TEMP 36.6–36.9; O2SAT 84–95
[2021-07-23] MEDS: Gabapentin 300 MG Capsule PO (05:39)
[2021-07-23 05:45] LABS: Absolute Neutrophil Count 6.8 X10^3/uL (2.0-7.7); Basophil# 0.04 X10^3/uL; Basophil% 0.5 % (0-1); Eosinophil# 0.17 X10^3/uL; Eosinophils% 2.1 % (0-5); Hemoglobin 9.4 g/dL (12.0-15.0); Lymphocyte % 6.1 % (19-41); Mean Corp Hgb Conc 29.4 g/dL (32-36); Mean Corpuscular Volume 85.1 fL (81-99); Mean Platelet Vol. 10.5 fl (6.2-12.0); Monocyte# 0.61 X10^3/uL; Monocyte% 7.4 % (0-10); NRBC Flagged by Analyzer 0 % (0-5); Neutrophil # 6.84 X10^3/uL (2.7-7.7); Neutrophil % 83.2 % (47-70); POSITIVE DIFFERENTIAL YES; Platelet Count 427 K/mm3 (150-450); RBC Distribution Width CV 14.6 % (11.6-14.6); RBC Distribution Width SD 45.1 fl (35.1-43.9); Red Blood Count 3.76 M/mm3 (4.2-5.4); White Blood Count 8.2 K/mm3 (4.4-11.0)
[2021-07-23 05:49] LABS: Differential Indicated SCAN CRITERIA MET
[2021-07-23 06:18] LABS: Anion Gap 5 (5-15); BUN 22 mg/dL (7-18); BUN/Creat Ratio 21.6 RATIO (10-20); Calcium,Total 8.4 mg/dL (8.5-10.1); Chloride 105 mmol/L (98-107); Creatinine, Serum 1.02 mg/dL (0.55-1.02); EST Glomerular Filtration Rate 60 mL/min (>60); Est Glom Filt Rate - Afr Amer 72 mL/min (>60); Estimated Creatinine Clearance 56.08 ml/min; Glucose 164 mg/dL (74-106); Potassium 3.9 mmol/L (3.5-5.1); Sodium Level 139 mmol/L (136-145)
[2021-07-23 06:30] LABS: Differential Comment SCANNED
--- NOTE | 2021-07-23 06:55 | PN.CC_ITS ---
Assessment & Plan Assessment/Plan (1) Acute hypoxemic respiratory failure: PLAN: RECOMMENDATIONS: 1. Wean supplemental oxygen to maintain saturations at or above 90%. 2. Continue antimicrobials per ID recommendations. 3. Aggressive bronchopulmonary hygiene. Continue incentive spirometry and PEP therapy. 4. Continue bronchodilator therapy. 5. Perform walking oximetry prior to consideration for discharge home. 6. The patient should follow-up in the pulmonary medicine clinic within 2 weeks of discharge home. IMPRESSIONS: 1. Acute hypoxemic respiratory failure Most likely secondary to an occult pulmonary infectious process leading to an exacerbation of her asthma. The patient does not typically utilize supplemental oxygen at her baseline. Given her immunosuppressed state, will continue antimicrobial coverage per ID recommendations. She will be continued on bronchodilator therapy. Aggressive bronchopulmonary hygiene will be employed. Continue to wean supplemental oxygen as tolerated for saturations greater than 90%. 2. History of kidney transplantation/chronic immunosuppressed state Continue outpatient medication regimen. 3. Hypertension/neuropathy/diabetes mellitus/GERD Complicates care, management, recovery and prognosis. Continue home medications as indicated. This note was generated with [employer] dictation software. It may contain incorrect words, spelling, and punctuation that were not noted in checking the note before signing. Subjective Subjective The patient was seen and examined at the bedside this morning. Events from the last 24 hours have been reviewed. The patient is currently afebrile, hemodynamically stable and maintaining appropriate oxygen saturations on 2 L/min via nasal cannula. Objective Data Objective Data The patient's most recent lab work, culture data and imaging studies have all been personally reviewed. Surface echocardiogram demonstrated normal LV size and function with an ejection fraction of 70%. Right ventricular systolic pressure was estimated to be 42 mmHg. Small pericardial effusion was noted without any evidence of cardiac tamponade. Blood and urine cultures are pending. Strep and urine Legionella antigens were negative. Respiratory viral panel was negative. COVID PCR was negative. Vital Signs: Vital Signs Temp Pulse Resp BP Pulse Ox 97.8 F 89 18 140/67 H 93 07/23/21 02:00 07/23/21 03:00 07/23/21 02:00 07/23/21 02:00 07/23/21 02:00 Oxygen Flow Rate (L/min) 2 Oxygen Delivery Method Nasal Cannula Weight: 105.5 kg Body Mass Index (BMI) 38.1 Intake & Output: Intake and Output for Last 24 Hours 07/21/21 07/22/21 07/23/21 23:59 23:59 23:59 Intake Total 1900 / 1900 1250 / 1250 120 / 120 Output Total 550 / 550 Balance 1350 / 1350 1250 / 1250 120 / 120 Lab / Micro Data Attestation: I reviewed the patient's lab results. Result Diagrams: 07/23/21 05:37 07/23/21 05:37 Labs: Laboratory Results - last 24 hr 07/22/21 11:31: POC Glucose 186 H 07/22/21 17:07: POC Glucose 249 H 07/22/21 20:19: POC Glucose 264 H 07/23/21 05:37: WBC 8.2, RBC 3.76 L, Hgb 9.4 L, Hct 32.0 L, MCV 85.1, MCH 25.0 L , MCHC 29.4 L, RDW Std Deviation 45.1 H, RDW Coeff of Frank 14.6, Plt Count 427, MPV 10.5, Immature Gran % (Auto) 0.700, Neut % (Auto) 83.2 H, Lymph % (Auto) 6.1 L, [place] % (Auto) 7.4, Eos % (Auto) 2.1, Baso % (Auto) 0.5, Absolute Neuts (auto) 6.8, Absolute Lymphs (auto) 0.50 L, Nucleated RBC % 0, Differential Comment SCANNED 07/23/21 05:37: Sodium 139, Potassium 3.9, Chloride 105, Carbon Dioxide 29.0, Anion Gap 5, BUN 22 H, Creatinine 1.02, Estim Creat Clear Calc 56.08, Est GFR (MDRD) Af Amer 72, Est GFR (MDRD) Non-Af 60, BUN/Creatinine Ratio 21.6 H, Glucose 164 H, Calcium 8.4 L Micro: Microbiology 07/19/21 20:40 Blood Culture (Wb) - Right Hand Blood Culture - Preliminary No growth in 48 hours. 07/19/21 20:30 Blood Culture (Wb) - Anticubital Right Blood Culture - Preliminary No growth in 48 hours. 07/20/21 02:15 Urine, Clean Catch Urine Culture - Final Presumptive Lactobacillus sp. Mixed Gram Positive Organisms 07/20/21 13:16 Mucosa - Nasopharyngeal Respiratory Panel (PCR) - Final 07/20/21 02:55 Urine, Random Legionella Antigen - Final 07/20/21 02:55 Urine, Random Streptococcus pneumoniae Antigen (M - Final 07/19/21 19:50 Mucosa - Nasopharyngeal Influenza Types A,B Direct FA (MELVINA) - Final Physical Exam Const alert and no apparent distress Constitutional Narrative: Sitting in bedside recliner. General Appearance: cooperative Nutritional Appearance: obese HEENT normocephalic, head/scalp atraumatic and moist oral mucous membranes Eyes PERRL, EOMs intact bilaterally and conjunctivae normal Neck supple General: trachea midline Chest inspection of chest normal Resp normal respiratory effort and no use of accessory muscles Effort and Inspection: able to speak in complete sentences Auscultation: wheezes; Negative for rales or rhonchi Cardio regular rate and regular rhythm GI normal to inspection, nondistended, normoactive bowel sounds Extremity no clubbing, cyanosis or edema Skin no rashes or lesions noted Neuro CN's II-XII intact bilaterally, moves all extremities and no focal motor deficits Psych cooperative and affect normal Charges/Coding Visit Charges Inpatient E&M: 29228 Subs Hosp L2
[2021-07-23] MEDS: Budesonide Respules 0.5 MG/2 ML AMPUL.NEB. INHALATION (07:00)
[2021-07-23] MEDS: Insulin Lispro 100 UNIT/ML INSULN.PEN SC ×2 (07:26→11:44)
[2021-07-23 07:31] LABS: Bedside Glucose 188 mg/dL (74-106)
[2021-07-23] MEDS: predniSONE 5 MG Tablet PO (08:46)
[2021-07-23] MEDS: Multivitamins,Therapeutic Tablet 1 TABLET PO (08:46)
[2021-07-23] MEDS: amLODIPine 5 MG Tablet PO (08:46)
[2021-07-23] MEDS: Loratadine 10 MG Tablet PO (08:46)
[2021-07-23] MEDS: glipiZIDE 10 MG Tablet PO (08:46)
[2021-07-23] MEDS: Enoxaparin 40 MG/0.4 ML Syringe SC (08:46)
[2021-07-23] MEDS: Aspirin E.C. 81 MG Tablet PO (08:46)
[2021-07-23] MEDS: Mycophenolate Mofetil 250 MG Capsule 750 MG PO (08:47)
[2021-07-23] MEDS: Tacrolimus Anhydrous 1 MG Capsule 2 MG PO (08:47)
[2021-07-23 11:06] LABS: Bedside Glucose 215 mg/dL (74-106)
[2021-07-23] MEDS: Cefdinir 300 MG Capsule PO (11:48)
--- NOTE | 2021-07-23 11:54 | PCM.DC.SUM ---
Providers Date of Admission: 07/19/21 Primary Care Physician: Dr. 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 Routine Consulting Provider: Pulmonary Medicine [facility] Reason for Consult: acute hypoxic respiratory failure EMERGENT Consult: No Notified: Yes Date Notified: 07/20/21 Time Notified: 10:58 Method of Notification: Text 07/21/21 06:26 Consult: Infectious Disease Routine Consulting Provider: Brandon Collazo Reason for Consult: Sepsis, Respiratory Failure, Immunosuppressed 2/2 kidney transplant EMERGENT Consult: No Notified: Yes Date Notified: 07/21/21 Time Notified: 06:27 Method of Notification: Answering Service Reason For Visit: sepsis secondary to pneumonia Diagnosis Discharge Diagnosis (1) Acute hypoxemic respiratory failure: Status: Acute Code(s): J96.01 - Acute respiratory failure with hypoxia Medications at Discharge Home Medications loperamide 2 mg PO BID PRN 03/07/18 ferrous sulfate 325 mg PO DAILY 03/10/20 carisoprodol 350 mg PO DAILY 05/21/20 multivitamin 1 tab PO DAILY 05/21/20 glipizide 5 mg PO BREAKFAST #30 tablet 07/10/20 loratadine 10 mg tablet 10 mg PO DAILY tab 08/13/20 amlodipine 5 mg tablet 5 mg PO DAILY tab 11/04/20 aspirin 81 mg tablet,delayed release 81 mg PO DAILY tab 11/04/20 fluticasone propionate 220 mcg/actuation HFA aerosol inhaler 2 puff INHALATION BID #12 g 11/04/20 furosemide 40 mg tablet 40 mg PO DAILY PRN tab 11/04/20 magnesium chloride 71.5 mg (magnesium chloride) tablet,delayed release 71.5 mg PO DAILY tab 11/04/20 mycophenolate mofetil 250 mg capsule 750 mg PO BID cap 11/04/20 omeprazole 20 mg capsule,delayed release 40 mg PO BID cap 11/04/20 prednisone 5 mg tablet 5 mg PO DAILY tab 11/04/20 semaglutide 0.25 mg SUBCUT QWEEK ml 11/04/20 tacrolimus 1 mg capsule, immediate-release 1 mg PO DAILY cap 11/04/20 biotin 10,000 mcg capsule 10,000 mcg PO DAILY cap 01/11/21 albuterol sulfate 90 mcg/actuation aerosol inhaler 2 puff INHALATION Q6H PRN #8.5 g 04/19/21 Lantus Solostar U-100 Insulin 10 unit SUBCUT QHS 07/19/21 dicyclomine 10 mg PO TID 07/19/21 gabapentin 300 mg TID 07/19/21 cefdinir 300 mg PO Q12 #6 cap 07/23/21 sulfamethoxazole-trimethoprim [Bactrim] 1 tab PO DAILY #30 tab 07/23/21 Hospital Course Operations None Procedures None and 2-D Echocardiogram Summary of Care Provided Minutes Spent on Discharge: 45 Hospital Course: Patient is a 56-year-old female with past medical history as outlined which includes history of right kidney transplant due to ESRD from type 2 diabetes mellitus, DARCY and irritable bowel syndrome. She was admitted through the ED on 07/19/2021 with a complaint of progressively worsening malaise with associated anorexia and shortness of breath as well as a dry cough. She denied a fever but admitted to associated chills. She also said her blood sugar was elevated in the night before her admission with a blood sugar being 515. Imaging done showed bilateral infiltrates and she was also found to be hypoxic on admission. She was admitted and managed for sepsis due to pneumonia as well as acute hypoxic respiratory failure due to pneumonia. Chest x-ray showed bilateral infiltrates as mentioned. COVID test was negative and influenza screen was also negative. She was started on IV vancomycin, aztreonam and Levaquin. Patient's oxygen requirements went up to 10 L of oxygen. Pulmonology was consulted. CTA of the chest done was negative for PE but showed evidence of pericardial effusion. Cardiology was also consulted. He had a 2D echo done which showed EF of 70% with normal left ventricular systolic function and mildly dilated right ventricle and a small pericardial effusion which had been present on previous imaging. Pulmonology broaden antibiotics to vancomycin and meropenem. She was also diuresed with Lasix. ID was consulted. ID narrowed antibiotics down to ceftriaxone as MRSA PCR was negative. Patient had reported oral swelling with penicillins but had taken amoxicillin without issue. She was weaned down to 2 L of oxygen and felt much much better. She was discharged home on 07/23/2021. She had a walking pulse ox on the day of discharge which showed that she required 4 L of oxygen. She was discharged on 4 L of oxygen and. ID recommendations was discharged on p.o. cefdinir 300 mg twice daily for 3 days. She is to follow-up with her primary care doctor and to follow-up with pulmonology on outpatient basis. Patient was seen and examined prior to discharge. She felt much better and had no active complaints. She had an uneventful night and review of systems otherwise negative. Labs and vitals reviewed. Medication reviewed and reconciled. Physical Exam Const alert, oriented x3 and no apparent distress General Appearance: cooperative, comfortable and well kempt Exam Limitations: no limitations HEENT normocephalic, head/scalp atraumatic, hearing grossly normal bilaterally and moist oral mucous membranes Eyes PERRL, EOMs intact bilaterally and conjunctivae normal Neck no lymphadenopathy, supple and no JVD Resp Resp Narrative: diminished breath sounds bibasally, mild wheezing and crackles. on 2L of oxygen by nasal canula Cardio regular rate, regular rhythm, S1 normal heart sound, S2 normal heart sound and no murmurs GI normal to inspection, nondistended, normoactive bowel sounds, soft to palpation, non-tender and non-distended Extremity normal to inspection, full ROM and no clubbing, cyanosis or edema Skin no rashes or lesions noted Neuro oriented x3, CN's II-XII intact bilaterally and moves all extremities Sensorium / Orientation: awake and alert Psych affect normal Weight / BMI Weight Weight: 232 lb 9.403 oz Body Mass Index (BMI) 38.1 ABG / Lab / Microbiology Data Result Diagrams: 07/23/21 05:37 07/23/21 05:37 Laboratory: Laboratory Results - last 24 hr 07/22/21 17:07: POC Glucose 249 H 07/22/21 20:19: POC Glucose 264 H 07/23/21 05:37: WBC 8.2, RBC 3.76 L, Hgb 9.4 L, Hct 32.0 L, MCV 85.1, MCH 25.0 L, MCHC 29.4 L, RDW Std Deviation 45.1 H, RDW Coeff of Frank 14.6, Plt Count 427, MPV 10.5, Immature Gran % (Auto) 0.700, Neut % (Auto) 83.2 H, Lymph % (Auto) 6.1 L, Wilcox % (Auto) 7.4, Eos % (Auto) 2.1, Baso % (Auto) 0.5, Absolute Neuts (auto) 6.8, Absolute Lymphs (auto) 0.50 L, Nucleated RBC % 0, Differential Comment SCANNED 07/23/21 05:37: Sodium 139, Potassium 3.9, Chloride 105, Carbon Dioxide 29.0, Anion Gap 5, BUN 22 H, Creatinine 1.02, Estim Creat Clear Calc 56.08, Est GFR (MDRD) Af Amer 72, Est GFR (MDRD) Non-Af 60, BUN/Creatinine Ratio 21.6 H, Glucose 164 H, Calcium 8.4 L 07/23/21 07:24: POC Glucose 188 H 07/23/21 11:02: POC Glucose 215 H Microbiology: Microbiology 07/19/21 20:40 Blood Culture (Wb) - Right Hand Blood Culture - Preliminary No growth in 48 hours. 07/19/21 20:30 Blood Culture (Wb) - Anticubital Right Blood Culture - Preliminary No growth in 48 hours. 07/20/21 02:15 Urine, Clean Catch Urine Culture - Final Presumptive Lactobacillus sp. Mixed Gram Positive Organisms 07/20/21 13:16 Mucosa - Nasopharyngeal Respiratory Panel (PCR) - Final 07/20/21 02:55 Urine, Random Legionella Antigen - Final 07/20/21 02:55 Urine, Random Streptococcus pneumoniae Antigen (M - Final 07/19/21 19:50 Mucosa - Nasopharyngeal Influenza Types A,B Direct FA (MELVINA) - Final D/C Instructions Discharge Diet: Low fat / Low cholesterol and 1800 Calorie Control Diet Discharge Activity: Return to Normal Activity Weight Bearing Status: Weight bearing as tolerated Call your doctor if you observe: Fever of 101 or Higher, Shortness of breath, Dizziness, Swelling in the ankles and Chest pain Meaningful Use Info Meaningful Use Diagnoses (Choose all that apply): None applicable Discharge Plan Admission Admit Date/Time: 07/19/21 22:11 Primary Reason for Your Visit: sepsis and acute hypoxic respiratory failure due to pneumonia Attending Provider: Chloe Robison Primary Care Provider: John Castillo Consulting Providers: Doe Wilson ; Onur Malave ; Eb Lee ; Dunia Hill NP ; Brandon Collazo Instructions Patient Instructions: ED Pneumonia (Adult) Additional Instructions / Restrictions: use oxygen 4L for shortness of breath as needed Discharge Orders/Prescriptions Prescriptions: New cefdinir 300 mg Capsule 300 mg PO Q12 Qty: 6 RF: 0 sulfamethoxazole-trimethoprim [Bactrim] 400-80 mg tablet 1 tab PO DAILY Qty: 30 RF: 1 Continued loratadine 10 mg tablet 10 mg PO DAILY RF: 0 mycophenolate mofetil 250 mg capsule 750 mg PO BID RF: 0 aspirin 81 mg tablet,delayed release (DR/EC) 81 mg PO DAILY RF: 0 amlodipine 5 mg tablet 5 mg PO DAILY RF: 0 furosemide 40 mg tablet 40 mg PO DAILY PRN (Reason: Water retention) RF: 0 magnesium chloride 71.5 mg tablet,delayed release (DR/EC) 71.5 mg PO DAILY RF: 0 semaglutide 0.25 mg or 0.5 mg(2 mg/1.5 mL) pen injector 0.25 mg subcut QWEEK RF: 0 tacrolimus 1 mg capsule 1 mg PO DAILY RF: 0 prednisone 5 mg tablet 5 mg PO DAILY RF: 0 Flovent HFA 220 mcg/actuation HFA aerosol inhaler 2 puff inhalation BID Qty: 12 RF: 6 biotin 10,000 mcg capsule 10,000 mcg PO DAILY RF: 0 loperamide 2 MG capsule 2 mg PO BID PRN (Reason: Diarrhea) RF: 0 ferrous sulfate 325 MG tablet 325 mg PO DAILY RF: 0 multivitamin 1 TABLET tablet 1 tab PO DAILY RF: 0 carisoprodol 350 MG tablet 350 mg PO DAILY RF: 0 omeprazole 20 mg capsule,delayed release(DR/EC) 40 mg PO BID RF: 0 glipizide 10 MG tablet 5 mg PO BREAKFAST Qty: 30 RF: 0 gabapentin 300 mg capsule 300 mg TID RF: 0 Lantus Solostar U-100 Insulin 100 unit/mL (3 mL) insulin pen 10 unit SUBCUT QHS RF: 0 dicyclomine 10 mg Capsule 10 mg PO TID RF: 0 albuterol sulfate 90 mcg/actuation HFA aerosol inhaler 2 puff inhalation Q6H PRN (Reason: shortness of breath or wheezing) Qty: 8.5 RF: 6 Referrals / Follow Up: John Castillo MD [Primary Care Provider] - 08/04/21 2:00 pm Eb Lee DO [STAFF PHYSICIAN] - Within 2 Weeks Disposition Disposition (needs filled in before D/C Order can be placed): Home, Self Care Charges/Coding Visit Charges Inpatient E&M: 26784 Disch Hosp
--- NOTE | 2021-07-23 12:22 | CASEMGMT ---
SHANTANU CRUZ updated that patient qualifies for home oxygen. Patient states she has no preferences for DME and agreeable to [employer]. Script received for home oxygen and faxed to [facility]. Patient provided with portable oxygen tank for discharge. Patient denied further needs at this time. Patient had no questions or concerns at this time.
--- NOTE | 2021-07-23 14:32 | PHA.DC.MR ---
Pharmacy Service has performed discharge medication reconciliation for this patient. The patient's discharge medication list was reviewed for discrepancies and discrepancies were resolved. Patient discharged before this [facility] was able to auto travel counselor. Medications reviewed. Home Medications loperamide 2 mg PO BID PRN 03/07/18 ferrous sulfate 325 mg PO DAILY 03/10/20 carisoprodol 350 mg PO DAILY 05/21/20 multivitamin 1 tab PO DAILY 05/21/20 glipizide 5 mg PO BREAKFAST #30 tablet 07/10/20 loratadine 10 mg tablet 10 mg PO DAILY tab 08/13/20 amlodipine 5 mg tablet 5 mg PO DAILY tab 11/04/20 aspirin 81 mg tablet,delayed release 81 mg PO DAILY tab 11/04/20 fluticasone propionate 220 mcg/actuation HFA aerosol inhaler 2 puff INHALATION BID #12 g 11/04/20 furosemide 40 mg tablet 40 mg PO DAILY PRN tab 11/04/20 magnesium chloride 71.5 mg (magnesium chloride) tablet,delayed release 71.5 mg PO DAILY tab 11/04/20 mycophenolate mofetil 250 mg capsule 750 mg PO BID cap 11/04/20 omeprazole 20 mg capsule,delayed release 40 mg PO BID cap 11/04/20 prednisone 5 mg tablet 5 mg PO DAILY tab 11/04/20 semaglutide 0.25 mg SUBCUT QWEEK ml 11/04/20 tacrolimus 1 mg capsule, immediate-release 1 mg PO DAILY cap 11/04/20 biotin 10,000 mcg capsule 10,000 mcg PO DAILY cap 01/11/21 albuterol sulfate 90 mcg/actuation aerosol inhaler 2 puff INHALATION Q6H PRN #8.5 g 04/19/21 Lantus Solostar U-100 Insulin 10 unit SUBCUT QHS 07/19/21 dicyclomine 10 mg PO TID 07/19/21 gabapentin 300 mg TID 07/19/21 cefdinir 300 mg PO Q12 #6 cap 07/23/21 sulfamethoxazole-trimethoprim [Bactrim] 1 tab PO DAILY #30 tab 07/23/21
== END 2021-07-23 13:50 | disposition home or self-care (01) | DRG 871 ==
LOC: ED 22:08 → PCU 22:36
PROVIDERS: Admitting Provider Hospitalist; Emergency Provider Student in an Organized Health Care Education/Training Program; PCP Family Medicine; Visit Provider Student in an Organized Health Care Education/Training Program
DX: A41.9 Sepsis, unspecified organism (principal); J18.9 Pneumonia, unspecified organism; J96.01 Acute respiratory failure with hypoxia; D84.9 Immunodeficiency, unspecified; I12.0 Hypertensive chronic kidney disease with stage 5 chronic kidney disease or end stage renal disease; I31.3 Pericardial effusion (noninflammatory); J45.901 Unspecified asthma with (acute) exacerbation; J90 Pleural effusion, not elsewhere classified; Z94.0 Kidney transplant status; E11.42 Type 2 diabetes mellitus with diabetic polyneuropathy; E11.22 Type 2 diabetes mellitus with diabetic chronic kidney disease; R65.20 Severe sepsis without septic shock; E11.65 Type 2 diabetes mellitus with hyperglycemia; D64.9 Anemia, unspecified; I12.9 Hypertensive chronic kidney disease with stage 1 through stage 4 chronic kidney disease, or unspecified chronic kidney disease; N18.9 Chronic kidney disease, unspecified; G47.33 Obstructive sleep apnea (adult) (pediatric); K58.9 Irritable bowel syndrome, unspecified; Z79.84 Long term (current) use of oral hypoglycemic drugs; Z99.89 Dependence on other enabling machines and devices
CPT/HCPCS: 36415; 36600; 71045; 71275; 80048; 80053; 81001; 82803; 82962; 83605; 84484; 85025; 85610; 85730; 87040; 87086; 87088; 87449; 87633; 87635; 87641; 87804; 93005; 93306; 94002; 94640; 94667; 94668; 94760; 97802; 99251; 99285; J2185; J7040; Q9967; A4216; G0463; J0696; J2405; U0003; U0005

== ENCOUNTER → 2021-08-04 | Outpatient (CLI) | payer MEDICARE, MEDICAID, SELFPAY ==
[2021-08-04 17:54] LABS: Absolute Lymphocyte Count 0.82 X10^3/uL (0.83-4.51); Absolute Neutrophil Count 7.9 X10^3/uL (2.0-7.7); Basophil# 0.04 X10^3/uL; Basophil% 0.4 % (0-1); Eosinophil# 0.02 X10^3/uL; Eosinophils% 0.2 % (0-5); Hematocrit 36.5 % (37-47); Hemoglobin 10.5 g/dL (12.0-15.0); Lymphocyte # 0.82 X10^3/ul (0.83-4.51); Lymphocyte % 8.4 % (19-41); Mean Corp Hgb Conc 28.8 g/dL (32-36); Mean Corpuscular Hgb 24.8 pg (27.0-32.0); Mean Corpuscular Volume 86.3 fL (81-99); Mean Platelet Vol. 11.6 fl (6.2-12.0); Monocyte# 0.93 X10^3/uL; Monocyte% 9.5 % (0-10); NRBC Flagged by Analyzer 0 % (0-5); Neutrophil # 7.94 X10^3/uL (2.7-7.7); Neutrophil % 80.9 % (47-70); Platelet Count 410 K/mm3 (150-450); RBC Distribution Width CV 14.8 % (11.6-14.6); RBC Distribution Width SD 46.9 fl (35.1-43.9); Red Blood Count 4.23 M/mm3 (4.2-5.4); White Blood Count 9.8 K/mm3 (4.4-11.0)
[2021-08-04 18:22] LABS: ALB/GLOB Ratio 0.8 RATIO (0.9-2.4); AST(SGOT) 9 U/L (15-37); Alanine Aminotransfer ALT/SGPT 12 U/L (13-56); Albumin, Serum 2.6 g/dL (3.2-5.0); Alkaline Phosphatase 72 U/L (45-117); Anion Gap 6 (5-15); BUN 15 mg/dL (7-18); BUN/Creat Ratio 15.5 RATIO (10-20); Calcium,Total 8.4 mg/dL (8.5-10.1); Chloride 103 mmol/L (98-107); Creatinine, Serum 0.97 mg/dL (0.55-1.02); EST Glomerular Filtration Rate 63 mL/min (>60); Est Glom Filt Rate - Afr Amer 77 mL/min (>60); Ferritin 135 ng/mL (8-252); Globulin 3.3 g/dL (2.2-4.2); Glucose 156 mg/dL (74-106); Iron 14 ug/dL (50-170); Potassium 4.5 mmol/L (3.5-5.1); Prealbumin 9.5 mg/dL (20.0-40.0); Protein, Total 5.9 g/dL (6.4-8.2); Sodium Level 138 mmol/L (136-145); Thyroid Stim Hormone (TSH) 0.54 uIU/mL (0.358-3.74)
[2021-08-04 18:24] LABS: Vitamin B12 505 pg/mL (211-911)
[2021-08-04 18:37] LABS: BNP,B-Type NATRIURETIC PEPTIDE 212.8 pg/mL (0-100)
== END | disposition home or self-care (01) ==
LOC: MFPLAB 15:05
PROVIDERS: PCP Family Medicine; Referring Provider Family Medicine; Visit Provider Family Medicine
DX: R60.0 Localized edema (principal); N18.4 Chronic kidney disease, stage 4 (severe); R68.89 Other general symptoms and signs
CPT/HCPCS: 36415; 80053; 82607; 82728; 83540; 83880; 84134; 84443; 85025

== ENCOUNTER 2021-08-28 21:13 | Emergency (ER) | payer MEDICARE, MEDICAID, SELFPAY ==
[2021-08-28 21:15] VITALS: BP 162/93; PULSE 119; RESP 16; TEMP 36.6; O2SAT 95; BMI 39.9
--- NOTE | 2021-08-28 21:24 | EKG12_ITS ---
Test Reason : WEAKNESS Blood Pressure : / mmHG Vent. Rate : 115 BPM Atrial Rate : 115 BPM P-R Int : 160 ms QRS Dur : 086 ms QT Int : 322 ms P-R-T Axes : 052 005 018 degrees QTc Int : 445 ms Sinus tachycardia Otherwise normal ECG Confirmed by UMA HARO, SHEELA ([id number]), material expeditor SONIA MOODY ([id number]) on 08/31/2021 1:13:45 PM Referred By: LEANNE Confirmed By:SHEELA EATON MD
[2021-08-28 21:43] LABS: Absolute Lymphocyte Count 0.29 X10^3/uL (0.83-4.51); Absolute Neutrophil Count 10.9 X10^3/uL (2.0-7.7); Basophil# 0.03 X10^3/uL; Basophil% 0.3 % (0-1); Hematocrit 39.5 % (37-47); Hemoglobin 11.4 g/dL (12.0-15.0); Lymphocyte # 0.29 X10^3/ul (0.83-4.51); Lymphocyte % 2.4 % (19-41); Mean Corp Hgb Conc 28.9 g/dL (32-36); Mean Corpuscular Hgb 24.5 pg (27.0-32.0); Mean Corpuscular Volume 84.9 fL (81-99); Mean Platelet Vol. 11.7 fl (6.2-12.0); Monocyte# 0.69 X10^3/uL; Monocyte% 5.8 % (0-10); NRBC Flagged by Analyzer 0 % (0-5); Neutrophil # 10.85 X10^3/uL (2.7-7.7); Neutrophil % 90.9 % (47-70); POSITIVE DIFFERENTIAL YES; Platelet Count 259 K/mm3 (150-450); RBC Distribution Width CV 16.2 % (11.6-14.6); RBC Distribution Width SD 49.6 fl (35.1-43.9); Red Blood Count 4.65 M/mm3 (4.2-5.4); White Blood Count 11.9 K/mm3 (4.4-11.0)
[2021-08-28 21:54] LABS: Differential Indicated SCAN CRITERIA MET
[2021-08-28 22:30] LABS: Platelet Estimate ADEQUATE (ADEQ); Red Cell Morphology NORM C+C NORMAL (NORM C&C)
[2021-08-28 23:10] LABS: Anion Gap 7 (5-15); BUN 23 mg/dL (7-18); BUN/Creat Ratio 18.5 RATIO (10-20); Calcium,Total 8.9 mg/dL (8.5-10.1); Chloride 103 mmol/L (98-107); Creatinine, Serum 1.24 mg/dL (0.55-1.02); EST Glomerular Filtration Rate 48 mL/min (>60); Est Glom Filt Rate - Afr Amer 58 mL/min (>60); Estimated Creatinine Clearance 46.13 ml/min; Glucose 207 mg/dL (74-106); Potassium 4.7 mmol/L (3.5-5.1); Sodium Level 137 mmol/L (136-145)
--- NOTE | 2021-08-29 00:12 | EDS_ITS ---
HPI History of Present Illness Chief Complaint: Weakness Narrative Narrative: 56-year-old female presenting with generalized fatigue. She suspects it is due to starting Lexapro yesterday. She took a second dose today and states she slept most of the day. She states this is starting this she has been crying. She actually feels more depressed. She states that she told her primary care provider that she did not seem to be that depressed, but when she talks to him about her son who is incarcerated she becomes sad and she believes this is why it is. She states has had this before and she did have a similar reaction. She states that she slept most of the day and talk to her family occasionally who is out of town but when she was sleeping they were trying to contact her and since they could not call 911 who brought her to the emergency room. [facility] Medical History Acute hypoxemic respiratory failure Anxiety and depression Cellulitis of toe of left foot Chronic renal insufficiency, stage IV (severe) Chronic ulcer of left foot with necrosis of muscle Chronic ulcer of right great toe with fat layer exposed COVID-19 Dehydration Delayed wound healing Diabetes mellitus type 2, uncontrolled Diabetes mellitus with polyneuropathy Diabetic foot ulcer Diabetic neuropathy Diabetic ulcer of left great toe Diarrhea in adult patient (~02/2016) Edema of left lower extremity Gait instability GERD (gastroesophageal reflux disease) History of amputation of hallux History of fibula fracture Hypertension Hypertensive urgency IBS (irritable bowel syndrome) Iron deficiency anemia Malnutrition MRSA (methicillin resistant staph aureus) culture positive Osteomyelitis of ankle or foot Pericardial effusion Pneumonia due to COVID-19 virus Puncture wound of toe of left foot Vaginal candidiasis Venous insufficiency Home Medications loperamide 2 mg PO BID PRN 03/07/18 [History Last Taken 07/06/20] ferrous sulfate 325 mg PO DAILY 03/10/20 [History Last Taken 07/07/20] carisoprodol 350 mg PO DAILY 05/21/20 [History Last Taken Unknown] multivitamin 1 tab PO DAILY 05/21/20 [History Last Taken Unknown] loratadine 10 mg tablet 10 mg PO DAILY tab 08/13/20 [History Last Taken Unknown] amlodipine 5 mg tablet 5 mg PO DAILY tab 11/04/20 [History Last Taken Unknown] aspirin 81 mg tablet,delayed release 81 mg PO DAILY tab 11/04/20 [History Last Taken Unknown] furosemide 40 mg tablet 40 mg PO DAILY PRN tab 11/04/20 [History Last Taken Unknown] magnesium chloride 71.5 mg (magnesium chloride) tablet,delayed release 71.5 mg PO DAILY tab 11/04/20 [History Last Taken Unknown] omeprazole 20 mg capsule,delayed release 40 mg PO BID cap 11/04/20 [History Last Taken Unknown] prednisone 5 mg tablet 5 mg PO DAILY tab 11/04/20 [History Last Taken Unknown] tacrolimus 1 mg capsule, immediate-release 1 mg PO DAILY cap 11/04/20 [History Last Taken Unknown] biotin 10,000 mcg capsule 10,000 mcg PO DAILY cap 01/11/21 [History Last Taken Unknown] albuterol sulfate 90 mcg/actuation aerosol inhaler 2 puff INHALATION Q6H PRN #8.5 g 04/19/21 [Rx Last Taken Unknown] dicyclomine 10 mg PO TID 07/19/21 [History Last Taken Unknown] sulfamethoxazole-trimethoprim [Bactrim] 1 tab PO DAILY #30 tab 07/23/21 [Rx Last Taken Unknown] budesonide-formoterol HFA 160 mcg-4.5 mcg/actuation aerosol inhaler 2 puff INHALATION BID #1 ea 08/12/21 [Rx Last Taken Unknown] insulin lispro 100 unit/mL subcutaneous half-unit pen 10 unit SUBCUT TID ml 08/12/21 [History Last Taken Unknown] blood sugar diagnostic #10 ea 08/16/21 [History Last Taken Unknown] capsaicin 0.025 % topical cream 1 applic TOPICAL QHS g 08/16/21 [History Last Taken Unknown] cholecalciferol (vitamin D3) 50 mcg (2,000 unit) capsule 50 mcg PO DAILY [History Last Taken Unknown] escitalopram oxalate 10 mg tablet 10 mg PO DAILY 08/16/21 [History Last Taken Unknown] folic acid 20 mg capsule 20 mg PO DAILY 08/16/21 [History Last Taken Unknown] gabapentin 300 mg capsule 300 mg PO TID PRN 08/16/21 [History Last Taken Unknown] glipizide 10 mg tablet 10 mg PO BREAKFAST tab 08/16/21 [History Last Taken Unknown] hydroxyzine HCl 10 mg tablet 10 mg PO Q8H PRN #30 tab 08/16/21 [Rx Last Taken Unknown] mycophenolate mofetil 250 mg capsule 750 mg PO BID cap 08/16/21 [History Last Taken Unknown] insulin glargine 100 unit/mL (3 mL) subcutaneous pen 10 unit SUBCUT QHS #6 ml 08/24/21 [Rx Last Taken Unknown] Allergy/AdvReac Type Severity Reaction Status Date / Time Latex, Natural Rubber Allergy Severe Rash Verified 08/28/21 21:18 Penicillins Allergy Severe Swelling Verified 08/28/21 21:18 lactose AdvReac Severe Diarrhea Verified 08/28/21 21:18 Family History Mother Diabetes Heart disease Hypertension Father Diabetes Heart disease Hypertension Brother Diabetes Hypertension Heart disease Surgical History Amputated toe H/O: hysterectomy History of section History of colonoscopy (~02/2016) History of esophagogastroduodenoscopy (EGD) Hx of cardiac catheterization Kidney transplant recipient S/P kidney transplant S/P laparoscopic cholecystectomy (~06/2018) Tibia/fibula fracture Social History household members: none current occupational status: previously employed current occupation: worked in [employer] Smoking Status: Never smoker second hand exposure: No alcohol intake: never substance use type: does not use caffeine: No what type of physical activity do you participate in: none frequency: does not exercise do you feel safe at home: Yes ROS ROS ED ROS Narrative Generalized fatigue Constitutional Constitutional ED: Denies fever(s) or subjective Eyes Eyes: Denies blurry vision or diplopia ENT ENT ED: Denies rhinorrhea or sore throat Respiratory/Chest Respiratory/Chest: Denies cough, dyspnea or sputum Gastrointestinal Gastrointestinal: Denies abdominal pain, nausea or vomiting Genitourinary Genitourinary ED: Denies dysuria or hematuria Musculoskeletal Musculoskeletal: Denies arthralgias or myalgias Integumentary Denies abscess or rash Neurologic Neurologic: Denies headache(s) or weakness Psychiatric Psychiatric: Denies anxiety or depression Endocrine Endocrinology: Denies polydipsia or polyuria EXAM Physical Exam Const Vital Signs: 08/28/21 21:15 08/28/21 21:19 Temperature 98 F Temperature Source Temporal Pulse Rate 119 H Respiratory Rate 16 Respiratory Effort Normal Non-Labored Respiratory Pattern Normal Blood Pressure 162/93 H Blood Pressure Mean 116 Pulse Ox 95 Oxygen Delivery Method Nasal Cannula Oxygen Flow Rate (L/min) 4 Positive well nourished and obese General Appearance ED: NAD; Negative for pallor Nutritional Appearance: obese HEENT Reports moist mucous membranes Negative for trauma Eyes PERRL and EOMs intact bilaterally General Eye ED: Negative for pale conjunctiva Neck no lymphadenopathy and supple Resp normal respiratory effort and clear to auscultation bilaterally Cardio regular rate and regular rhythm Neuro oriented x3, CN's II-XII intact bilaterally and no sensory deficits noted Sensorium / Orientation: alert Motor Exam: strength 5/5 throughout Psych mental status grossly normal Skin no rashes or lesions noted General Skin Exam: Negative for jaundice or pallor MDM MDM MDM Narrative Medical decision making narrative: Patient presenting with generalized fatigue she attributes to her medication after starting Lexapro yesterday. I obtained blood work and her CBC and BMP are essentially unremarkable. Her creatinine is slightly bumped above baseline. She states she has not had anything to eat or drink all day because she is sleeping but does not express to me that she has nausea or vomiting. She has no other symptoms besides fatigue. After talking to her she states that she wants to discontinue the medication and she will talk to her primary care physician about starting something new. I do not believe she needs further testing here as patient has no other symptoms. Impression: 1. Fatigue 2. Medication side effect Lab Data Labs: Laboratory Results - last 24 hr 08/28/21 08/28/21 08/28/21 20:10 20:59 20:59 WBC 11.9 H RBC 4.65 Hgb 11.4 L Hct 39.5 MCV 84.9 MCH 24.5 L MCHC 28.9 L RDW Std Deviation 49.6 H RDW Coeff of Frank 16.2 H Plt Count 259 MPV 11.7 Immature Gran % (Auto) 0.600 Neut % (Auto) 90.9 H Lymph % (Auto) 2.4 L [place] % (Auto) 5.8 Eos % (Auto) 0.0 Baso % (Auto) 0.3 Absolute Neuts (auto) 10.9 H Absolute Lymphs (auto) 0.29 L Nucleated RBC % 0 Differential Comment SEE COMMENT Platelet Estimate ADEQUATE RBC Morphology NORM C+C Sodium Cancelled Cancelled Potassium Cancelled Cancelled Chloride Cancelled Cancelled Carbon Dioxide Cancelled Cancelled Anion Gap Cancelled Cancelled BUN Cancelled Cancelled Creatinine Cancelled Cancelled Estim Creat Clear Calc Cancelled Cancelled Est GFR (MDRD) Af Amer Cancelled Cancelled Est GFR (MDRD) Non-Af Cancelled Cancelled BUN/Creatinine Ratio Cancelled Cancelled Glucose Cancelled Cancelled Calcium Cancelled Cancelled 08/28/21 22:50 WBC RBC Hgb Hct MCV MCH MCHC RDW Std Deviation RDW Coeff of Frank Plt Count MPV Immature Gran % (Auto) Neut % (Auto) Lymph % (Auto) [place] % (Auto) Eos % (Auto) Baso % (Auto) Absolute Neuts (auto) Absolute Lymphs (auto) Nucleated RBC % Differential Comment Platelet Estimate RBC Morphology Sodium 137 Potassium 4.7 Chloride 103 Carbon Dioxide 27.0 Anion Gap 7 BUN 23 H Creatinine 1.24 H Estim Creat Clear Calc 46.13 Est GFR (MDRD) Af Amer 58 L Est GFR (MDRD) Non-Af 48 L BUN/Creatinine Ratio 18.5 Glucose 207 H Calcium 8.9 Discharge Plan Triage Chief Complaint: Weakness ED Provider: Martín Rod Dx/Rx/DC Orders Instructions: ED Weakness (Uncertain Cause) Prescriptions: No Action loratadine 10 mg tablet 10 mg PO DAILY RF: 0 aspirin 81 mg tablet,delayed release (DR/EC) 81 mg PO DAILY RF: 0 amlodipine 5 mg tablet 5 mg PO DAILY RF: 0 furosemide 40 mg tablet 40 mg PO DAILY PRN (Reason: Water retention) RF: 0 magnesium chloride 71.5 mg tablet,delayed release (DR/EC) 71.5 mg PO DAILY RF: 0 tacrolimus 1 mg capsule 1 mg PO DAILY RF: 0 prednisone 5 mg tablet 5 mg PO DAILY RF: 0 biotin 10,000 mcg capsule 10,000 mcg PO DAILY RF: 0 insulin lispro [Humalog Bryan KwikPen U-100] 100 unit/mL insulin pen, half- unit 10 unit subcut TID RF: 0 budesonide-formoterol [Symbicort] 160-4.5 mcg/actuation HFA aerosol inhaler 2 puff inhalation BID Qty: 1 RF: 3 capsaicin 0.025 % cream 1 applic topical QHS RF: 0 (DME) True Metrix Glucose Test Strip Strip See Rx Instructions .ROUTE .MEDSUPPLY Qty: 10 RF: 0 escitalopram oxalate [Lexapro] 10 mg tablet 10 mg PO DAILY RF: 0 mycophenolate mofetil 250 mg capsule 750 mg PO BID RF: 0 glipizide 10 mg tablet 10 mg PO BREAKFAST RF: 0 cholecalciferol (vitamin D3) 50 mcg (2,000 unit) capsule 50 mcg PO DAILY RF: 0 folic acid 20 mg capsule 20 mg PO DAILY RF: 0 hydroxyzine HCl 10 mg tablet 10 mg PO Q8H PRN (Reason: itching) Qty: 30 RF: 0 loperamide 2 MG capsule 2 mg PO BID PRN (Reason: Diarrhea) RF: 0 ferrous sulfate 325 MG tablet 325 mg PO DAILY RF: 0 multivitamin 1 TABLET tablet 1 tab PO DAILY RF: 0 carisoprodol 350 MG tablet 350 mg PO DAILY RF: 0 omeprazole 20 mg capsule,delayed release(DR/EC) 40 mg PO BID RF: 0 dicyclomine 10 mg Capsule 10 mg PO TID RF: 0 sulfamethoxazole-trimethoprim [Bactrim] 400-80 mg tablet 1 tab PO DAILY Qty: 30 RF: 1 gabapentin 300 mg capsule 300 mg PO TID PRN (Reason: Check with primary doctor) RF: 0 albuterol sulfate 90 mcg/actuation HFA aerosol inhaler 2 puff inhalation Q6H PRN (Reason: shortness of breath or wheezing) Qty: 8.5 RF: 6 Lantus Solostar U-100 Insulin 100 unit/mL (3 mL) insulin pen 10 unit SUBCUT QHS Qty: 6 RF: 1 Primary Care Provider: Annamaria Cantrell Referrals: Annamaria Cantrell MD [Primary Care Provider] - Disposition Disposition: Home, Self Care
[2021-08-29 00:21] VITALS: BP 142/78; PULSE 74; RESP 16; O2SAT 98
[2021-08-29 00:23] VITALS: BP 138/79; PULSE 91; RESP 16; O2SAT 97
== END 2021-08-29 01:33 | disposition home or self-care (01) ==
PROVIDERS: Emergency Provider Student in an Organized Health Care Education/Training Program; PCP Internal Medicine; Visit Provider Student in an Organized Health Care Education/Training Program
DX: R53.1 Weakness (principal); E11.42 Type 2 diabetes mellitus with diabetic polyneuropathy; N18.4 Chronic kidney disease, stage 4 (severe); R53.83 Other fatigue; I12.9 Hypertensive chronic kidney disease with stage 1 through stage 4 chronic kidney disease, or unspecified chronic kidney disease; I16.0 Hypertensive urgency
CPT/HCPCS: 80048; 85025; 93005; 99285; A4216

== ENCOUNTER 2021-11-17 17:27 | Emergency (ER) | payer MEDICARE, MEDICAID, SELFPAY ==
[2021-11-17 17:27] VITALS: BP 147/85; PULSE 87; RESP 16; TEMP 36.6; O2SAT 98; BMI 39.1
[2021-11-17 17:43] VITALS: PULSE 78; RESP 16; O2SAT 95
--- NOTE | 2021-11-17 17:57 | ED.VIS.LOWEX ---
HPI History of Present Illness HPI Narrative: Patient presents with injury to her left knee and lower leg that occurred today. Patient states she tripped going down some steps and fell forward. Patient denies any head injury or loss of consciousness. Patient denies any paresthesias or weakness. Patient states her pain is sharp. Patient states it is over the lateral aspect of her left knee and left lower leg. Patient denies any other injuries. Patient states she has a history of a fractured fibula and is concerned that she has fractured this again. Chief Complaint: Lower Extremity Injury Informant: patient Occured/Mechanism Mechanism/Context: Yes fall Onset/Context/Timing Onset: Today Context: Sudden Onset Timing: Continuous Quality of Pain: Sharp Location: Left knee and left lower leg Worsened by: Nothing Relieved by: Nothing Associated Symptoms Associated Symptoms: Negative for Parasthesia, Weakness or Loss of Funtion PFSH [facility] Medical History Acute hypoxemic respiratory failure Anxiety and depression Cellulitis of toe of left foot Chronic renal insufficiency, stage IV (severe) Chronic ulcer of left foot with necrosis of muscle Chronic ulcer of right great toe with fat layer exposed COVID-19 Dehydration Delayed wound healing Diabetes mellitus type 2, uncontrolled Diabetes mellitus with polyneuropathy Diabetic foot ulcer Diabetic neuropathy Diabetic ulcer of left great toe Diarrhea in adult patient (~02/2016) Edema of left lower extremity Gait instability GERD (gastroesophageal reflux disease) History of amputation of hallux History of fibula fracture Hypertension Hypertensive urgency IBS (irritable bowel syndrome) Iron deficiency anemia Malnutrition MRSA (methicillin resistant staph aureus) culture positive Osteomyelitis of ankle or foot Pericardial effusion Pneumonia due to COVID-19 virus Puncture wound of toe of left foot Vaginal candidiasis Venous insufficiency Home Medications ferrous sulfate 325 mg (65 mg iron) tablet 325 mg PO DAILY 03/10/20 [History Last Taken 07/07/20] multivitamin 1 tab PO DAILY 05/21/20 [History Last Taken Unknown] loratadine 10 mg tablet 10 mg PO DAILY 08/13/20 [History Last Taken Unknown] amlodipine 5 mg tablet 5 mg PO DAILY 11/04/20 [History Last Taken Unknown] aspirin 81 mg tablet,delayed release 81 mg PO DAILY 11/04/20 [History Last Taken Unknown] furosemide 40 mg tablet 40 mg PO DAILY PRN Water retention 11/04/20 [History Last Taken Unknown] magnesium chloride 71.5 mg (magnesium chloride) tablet,delayed release 71.5 mg PO DAILY 11/04/20 [History Last Taken Unknown] omeprazole 20 mg capsule,delayed release 40 mg PO BID 11/04/20 [History Last Taken Unknown] prednisone 5 mg tablet 5 mg PO DAILY Check with primary doctor 11/04/20 [History Last Taken Unknown] tacrolimus 1 mg capsule, immediate-release 1 mg PO DAILY Check with primary doctor 11/04/20 [History Last Taken Unknown] biotin 10,000 mcg capsule 10,000 mcg PO DAILY 01/11/21 [History Last Taken Unknown] albuterol sulfate 90 mcg/actuation aerosol inhaler 2 puff inhalation Q6H PRN shortness of breath or wheezing #8.5 grams 04/19/21 [Rx Last Taken Unknown] dicyclomine 10 mg capsule 10 mg PO TID IBS 07/19/21 [History Last Taken Unknown] sulfamethoxazole 400 mg-trimethoprim 80 mg tablet (Bactrim) 1 tab PO DAILY #30 tabs 07/23/21 [Rx Last Taken Unknown] budesonide-formoterol HFA 160 mcg-4.5 mcg/actuation aerosol inhaler (Symbicort) 2 puff inhalation BID #1 ea 08/12/21 [Rx Last Taken Unknown] insulin lispro 100 unit/mL subcutaneous half-unit pen (Humalog Bryan [place] (U-100)) 10 unit subcut TID 08/12/21 [History Last Taken Unknown] blood sugar diagnostic (True Metrix Glucose Test Strip) #10 ea 08/16/21 [History Last Taken Unknown] cholecalciferol (vitamin D3) 50 mcg (2,000 unit) capsule 50 mcg PO DAILY 08/16/21 [History Last Taken Unknown] folic acid 20 mg capsule 20 mg PO DAILY 08/16/21 [History Last Taken Unknown] gabapentin 300 mg capsule 300 mg PO TID PRN Check with primary doctor 08/16/21 [History Last Taken Unknown] glipizide 10 mg tablet 10 mg PO BREAKFAST 08/16/21 [History Last Taken Unknown] hydroxyzine HCl 10 mg tablet 10 mg PO Q8H PRN itching #30 tabs 08/16/21 [Rx Last Taken Unknown] mycophenolate mofetil 250 mg capsule 750 mg PO BID 08/16/21 [History Last Taken Unknown] insulin glargine 100 unit/mL (3 mL) subcutaneous pen (Lantus Solostar U-100 Insulin) 10 unit (0.1 mL) subcut QHS Type 2 Diabetes #6 mL 08/24/21 [Rx Last Taken Unknown] carisoprodol 350 mg tablet 350 mg PO BID #60 tabs 11/15/21 [Rx Last Taken Unknown] loperamide 2 mg capsule 2 mg PO BID PRN Diarrhea #60 caps 11/15/21 [Rx Last Taken Unknown] Allergy/AdvReac Type Severity Reaction Status Date / Time Latex, Natural Rubber Allergy Severe Rash Verified 11/17/21 17:27 Penicillins Allergy Severe Swelling Verified 11/17/21 17:27 lactose AdvReac Severe Diarrhea Verified 11/17/21 17:27 Family History Mother Diabetes Heart disease Hypertension Father Diabetes Heart disease Hypertension Brother Diabetes Hypertension Heart disease Surgical History Amputated toe H/O: hysterectomy History of section History of colonoscopy (~02/2016) History of esophagogastroduodenoscopy (EGD) Hx of cardiac catheterization Kidney transplant recipient S/P kidney transplant S/P laparoscopic cholecystectomy (~06/2018) Tibia/fibula fracture Social History household members: none current occupational status: previously employed current occupation: worked in [employer] Smoking Status: Never smoker second hand exposure: No alcohol intake: never substance use type: does not use caffeine: No what type of physical activity do you participate in: none frequency: does not exercise do you feel safe at home: Yes ROS ROS ED Constitutional Constitutional ED: Denies chills or fever(s) Eyes Eyes: Denies blurry vision or change in vision ENT ENT ED: Denies rhinorrhea or sore throat Cardiovascular Cardiovascular: Denies chest pain or palpitations Respiratory/Chest Respiratory/Chest: Denies cough or dyspnea Gastrointestinal Gastrointestinal: Denies nausea or vomiting Genitourinary Genitourinary ED: Denies dysuria or hematuria Musculoskeletal Musculoskeletal: Denies back pain or neck pain Integumentary Denies abscess or rash Neurologic Neurologic: Denies headache(s) or weakness Allergic/Immunologic Allergic/Immunologic ED: Denies mouth swelling or urticaria EXAM Physical Exam Const Vital Signs: 11/17/21 17:27 11/17/21 17:43 Temperature 97.8 F Temperature Source Temporal Pulse Rate 87 78 Respiratory Rate 16 16 Blood Pressure 147/85 H Blood Pressure Mean 105 Pulse Ox 98 95 Oxygen Delivery Method Room Air Room Air Positive well nourished, well developed and obese General Appearance ED: well developed and NAD Nutritional Appearance: obese HEENT Reports moist mucous membranes Neck full ROM Extremity Extremity Narrative: There is tenderness over the lateral aspect of the left knee and left lower leg along the fibula. There is no edema or ecchymosis. There is no bony crepitance or step-off. Range of motion of the left knee and left ankle were limited in all motion secondary to pain. Pedal pulses are equal bilaterally. Sensation was intact to light touch in all digits. Capillary refills less than 2 seconds in all digits. Neuro oriented x3, CN's II-XII intact bilaterally, moves all extremities and no sensory deficits noted Sensorium / Orientation: alert Motor Exam: strength 5/5 throughout Psych mental status grossly normal Skin no wounds MDM MDM MDM Narrative Medical decision making narrative: X-rays of the left knee were obtained. There are 4 views. On my interpretation, there is a nondisplaced fracture of the proximal fibula. There is some degenerative joint changes noted. Radiologist also interpreted the x-rays and agrees. X-rays of the left ankle were obtained. There are 3 views. On my interpretation, there is no acute fracture. There is some soft tissue swelling. There is no dislocation. Radiologist also interpreted the x-rays and agrees. Patient was advised of her findings. Patient was instructed to ice and elevate the left knee. Patient was instructed to take Tylenol or ibuprofen as needed for pain. Patient was instructed to follow-up with her primary care physician in 5 to 7 days. Patient understood and was agreeable with the plan. All questions were answered. Radiography Diagnostic Testing: Clinical Impression(s) from Imaging Studies Knee X-Ray 11/17/21 18:01 IMPRESSION: Oblique fracture of the proximal fibular shaft. Osteoarthritis as above. Electronically Signed: Lonnie Andrade MD, DA at 18:59 EDT Reading Location ID and State: [facility] / [place] Tel , Service support , Ankle X-Ray 11/17/21 18:32 IMPRESSION: Status post screw fixation distal fibula and tibia. Moderate posterior and plantar calcaneal spurring. Mild bimalleolar soft tissue swelling. Electronically Signed: Lonnie Andrade MD, DA at 18:57 EDT , Discharge Plan Triage Chief Complaint: Lower Extremity Injury ED Provider: Arjun Euceda Dx/Rx/DC Orders Clinical Impression: Closed fracture of fibula, proximal, left, Fall Instructions: ED Fracture, Lower Extremity Prescriptions: No Action loratadine 10 mg tablet 10 mg PO DAILY Label Comments: TAKE 1 TABLET BY MOUTH DAILY aspirin 81 mg tablet,delayed release (DR/EC) 81 mg PO DAILY Label Comments: TAKE 1 TABLET BY MOUTH EVERY DAY amlodipine 5 mg tablet 5 mg PO DAILY Label Comments: TAKE 1 TABLET BY MOUTH EVERY DAY furosemide 40 mg tablet 40 mg PO DAILY PRN (Reason: Water retention) Label Comments: Take 1 tablet by mouth twice daily. magnesium chloride 71.5 mg tablet,delayed release (DR/EC) 71.5 mg PO DAILY Label Comments: Take 1 tablet by mouth once daily. tacrolimus 1 mg capsule 1 mg PO DAILY Label Comments: TAKE 2 CAPSULES BY MOUTH EVERY MORNING AND TAKE 1 CAPSULES BY MOUTH EVERY EVENING -ON A 12 HOUR SCHEDULE- prednisone 5 mg tablet 5 mg PO DAILY biotin 10,000 mcg capsule 10,000 mcg PO DAILY insulin lispro [Humalog Bryan KwikPen U-100] 100 unit/mL insulin pen, half-unit 10 unit subcut TID budesonide-formoterol [Symbicort] 160-4.5 mcg/actuation HFA aerosol inhaler 2 puff inhalation BID Qty: 1 3RF Rx Instructions: administer with spacer, rinse mouth after each use (DME) True Metrix Glucose Test Strip Strip See Rx Instructions .ROUTE .MEDSUPPLY Qty: 10 Rx Instructions: As directed mycophenolate mofetil 250 mg capsule 750 mg PO BID glipizide 10 mg tablet 10 mg PO BREAKFAST Rx Instructions: Hold if fasting glucose less than 130 mg/dl. If fasting glucose more than 200 mg/dL, increase to 10 mg daily cholecalciferol (vitamin D3) 50 mcg (2,000 unit) capsule 50 mcg PO DAILY folic acid 20 mg capsule 20 mg PO DAILY hydroxyzine HCl 10 mg tablet 10 mg PO Q8H PRN (Reason: itching) Qty: 30 0RF loperamide 2 mg capsule 2 mg PO BID PRN (Reason: Diarrhea) Qty: 60 0RF carisoprodol 350 mg tablet 350 mg PO BID Qty: 60 0RF ferrous sulfate 325 MG tablet 325 mg PO DAILY multivitamin 1 TABLET tablet 1 tab PO DAILY omeprazole 20 mg capsule,delayed release(DR/EC) 40 mg PO BID dicyclomine 10 mg Capsule 10 mg PO TID sulfamethoxazole-trimethoprim [Bactrim] 400-80 mg tablet 1 tab PO DAILY Qty: 30 1RF gabapentin 300 mg capsule 300 mg PO TID PRN (Reason: Check with primary doctor) Label Comments: TAKE 1 CAPSULE THREE TIMES DAILY albuterol sulfate 90 mcg/actuation HFA aerosol inhaler 2 puff inhalation Q6H PRN (Reason: shortness of breath or wheezing) Qty: 8.5 6RF Lantus Solostar U-100 Insulin 100 unit/mL (3 mL) insulin pen 10 unit SUBCUT QHS Qty: 6 1RF Primary Care Provider: Annamaria Cantrell Referrals: Annamaria Cantrell MD [Primary Care Provider] - 5-7 Days Disposition Disposition: Home, Self Care
--- NOTE | 2021-11-17 18:01 | RAD_ITS ---
STUDY: X-RAY - LEFT KNEE REASON FOR EXAM: Female, 56 years old. Injury/Pain TECHNIQUE: 4 view(s) of the knee. COMPARISON: None. FINDINGS: There is an oblique fracture of the proximal fibular shaft. Mild tricompartmental joint space narrowing. Mild osteophytic spurring lateral aspect lateral compartment, tibial spine and upper pole patella posteriorly. No evidence of fracture, subluxation or dislocation. No evidence of joint effusion. Atherosclerotic vascular calcification of the distal superficial femoral artery. RAD/Knee 4 or More Views IMPRESSION: Oblique fracture of the proximal fibular shaft. Osteoarthritis as above. Electronically Signed: Lonnie Andrade MD, DA at 18:59 EDT ,
--- NOTE | 2021-11-17 18:32 | RAD_ITS ---
STUDY: X-RAY - LEFT ANKLE REASON FOR EXAM: Female, 56 years old. Injury/Pain TECHNIQUE: 3 view(s) of the ankle. COMPARISON: None. FINDINGS: Status post screw fixation from lateral to medial across the distal fibula and tibia. The ankle mortise joint is intact. There is mild soft tissue swelling adjacent to the lateral medial malleolus. Moderate posterior and plantar calcaneal spurring. RAD/Ankle min 3 Views IMPRESSION: Status post screw fixation distal fibula and tibia. Moderate posterior and plantar calcaneal spurring. Mild bimalleolar soft tissue swelling. Electronically Signed: Lonnie Andrade MD, DA at 18:57 EDT ,
[2021-11-17 20:05] VITALS: BP 163/81; RESP 18
== END 2021-11-17 20:09 | disposition home or self-care (01) ==
PROVIDERS: Emergency Provider Emergency Medicine; PCP Internal Medicine; Visit Provider Emergency Medicine
DX: S82.832A Other fracture of upper and lower end of left fibula, initial encounter for closed fracture (principal); E11.42 Type 2 diabetes mellitus with diabetic polyneuropathy; N18.4 Chronic kidney disease, stage 4 (severe); I12.9 Hypertensive chronic kidney disease with stage 1 through stage 4 chronic kidney disease, or unspecified chronic kidney disease; W10.9XXA Fall (on) (from) unspecified stairs and steps, initial encounter; Z86.16 Personal history of COVID-19; E66.9 Obesity, unspecified
CPT/HCPCS: 73564; 73610; 99282

== ENCOUNTER → 2022-04-18 | Outpatient (CLI) | payer MEDICARE, MEDICAID, SELFPAY ==
[2022-04-18 15:16] LABS: Absolute Lymphocyte Count 0.69 X10^3/uL (0.83-4.51); Absolute Neutrophil Count 3.7 X10^3/uL (2.0-7.7); Basophil# 0.04 X10^3/uL; Basophil% 0.8 % (0-1); Hematocrit 43.5 % (37-47); Lymphocyte # 0.69 X10^3/ul (0.83-4.51); Lymphocyte % 13.9 % (19-41); Mean Corp Hgb Conc 29.9 g/dL (32-36); Mean Corpuscular Hgb 25.5 pg (27.0-32.0); Mean Corpuscular Volume 85.5 fL (81-99); Mean Platelet Vol. 12.3 fl (6.2-12.0); Monocyte% 8.1 % (0-10); NRBC Flagged by Analyzer 0 % (0-5); Neutrophil % 74.8 % (47-70); Platelet Count 237 K/mm3 (150-450); RBC Distribution Width CV 14.6 % (11.6-14.6); RBC Distribution Width SD 45.6 fl (35.1-43.9); Red Blood Count 5.09 M/mm3 (4.2-5.4)
[2022-04-18 15:46] LABS: ALB/GLOB Ratio 0.8 RATIO (0.9-2.4); AST(SGOT) 14 U/L (15-37); Alanine Aminotransfer ALT/SGPT 16 U/L (13-56); Albumin, Serum 3.2 g/dL (3.2-5.0); Alkaline Phosphatase 96 U/L (45-117); Anion Gap 7 (5-15); BUN 21 mg/dL (7-18); BUN/Creat Ratio 16.8 RATIO (10-20); Calcium,Total 8.8 mg/dL (8.5-10.1); Chloride 103 mmol/L (98-107); Cholesterol 118 mg/dL (200); Creatinine, Serum 1.25 mg/dL (0.55-1.02); EST Glomerular Filtration Rate 47 mL/min (>60); Est Glom Filt Rate - Afr Amer 57 mL/min (>60); Glucose 367 mg/dL (74-106); High Density Lipoprotein 46 mg/dL; Potassium 4.2 mmol/L (3.5-5.1); Protein, Total 7.2 g/dL (6.4-8.2); Sodium Level 136 mmol/L (136-145); Triglycerides 85 mg/dL; Very Low Density Lipoprotein 17 mg/dL (5-40)
== END | disposition home or self-care (01) ==
LOC: BIMLAB 14:29
PROVIDERS: PCP Internal Medicine; Referring Provider Internal Medicine; Visit Provider Internal Medicine
DX: E11.65 Type 2 diabetes mellitus with hyperglycemia (principal); E11.42 Type 2 diabetes mellitus with diabetic polyneuropathy
CPT/HCPCS: 36415; 80053; 80061; 85025

== ENCOUNTER → 2022-05-03 | Outpatient (CLI) | payer MEDICARE, MEDICAID, SELFPAY ==
--- NOTE | 2022-05-03 09:08 | BI_ITS ---
MAMMOGRAPHY - BILATERAL SCREENING REASON FOR EXAM: Female, 56 years old. Routine annual screening examination. PERTINENT HISTORY: Non-contributory. TECHNIQUE: Digital bilateral breast carlos manuel (3D mammographic acquisition) in the CC and MLO projections. 2-D mediolateral oblique (MLO) and craniocaudad (CC) views of both breasts were obtained. CAD: Full Field Digital Mammography with Computer Added Detection was performed. COMPARISON: Comparison is made with prior study dated 04/15/2021 and 04/14/2020. FINDINGS: Breast Composition: The breasts are almost entirely fatty. There are no dominant masses or suspicious calcifications. Stable secretory calcifications bilaterally. No other significant abnormalities are identified. There has been no significant change since the prior study. BI/SCRN MAMM (CAD)W/CARLOS MANUEL BILAT IMPRESSION: Stable bilateral screening mammogram. Yearly follow-up mammogram recommended. (A) ASSESSMENT CATEGORY: BIRADS Category 2: Benign. A letter regarding these results will be sent to the patient by the facility within 30 days. Approximately 10% of breast cancers are not detected by mammography. A normal mammogram should not delay biopsy of a clinically suspicious abnormality. [id number] Electronically Signed: Mauro Gannon MD at 10:10 EST ,
== END | disposition home or self-care (01) ==
LOC: OPBI 09:05
PROVIDERS: PCP Internal Medicine; Visit Provider Internal Medicine
DX: Z12.31 Encounter for screening mammogram for malignant neoplasm of breast (principal)
CPT/HCPCS: 77063; 77067

== ENCOUNTER 2022-05-27 14:38 | Emergency (ER) | payer MEDICARE, MEDICAID, SELFPAY ==
[2022-05-27 14:40] VITALS: BP 149/79; PULSE 76; RESP 18; TEMP 36.7; O2SAT 100; BMI 40.3
--- NOTE | 2022-05-27 15:35 | EX.ED.DYSGE1 ---
HPI History of Present Illness Chief Complaint: Hypoglycemia Informant: patient Narrative Narrative: Patient presents via EMS secondary to hypoglycemia. Patient states that she did not require any insulin yesterday because her sugars were good. This morning she ate a yogurt and a half a banana. She checked her blood sugar after eating it was 144. She went ahead and took her 10 units of Humalog. She then only had a small yogurt and went to her doctor's appointment. She states that when she was pulling into her doctor's office she started to feel lightheaded as if her blood sugar was dropping. She made into the office and told the staff that she was not feeling well and felt that her blood sugar was low. Reportedly was in the low 40s. Patient was given oral glucose tabs and EMS was called. Patient states in the ambulance she started feeling significantly improved and now feels completely back to baseline. In the emergency room patient was given a sandwich. She has no complaints at this time. [facility] Medical History Acute hypoxemic respiratory failure Anxiety and depression Cellulitis of toe of left foot Chronic back pain Chronic renal insufficiency, stage IV (severe) Chronic ulcer of left foot with necrosis of muscle Chronic ulcer of right great toe with fat layer exposed Colon cancer screening COVID-19 Dehydration Delayed wound healing Diabetes mellitus type 2, uncontrolled Diabetes mellitus with polyneuropathy Diabetic foot ulcer Diabetic neuropathy Diabetic ulcer of left great toe Diarrhea in adult patient (~02/2016) Edema of left lower extremity Fecal incontinence Gait instability GERD (gastroesophageal reflux disease) Health care maintenance History of amputation of hallux History of fibula fracture Hypertension Hypertensive urgency IBS (irritable bowel syndrome) Iron deficiency anemia Malnutrition MRSA (methicillin resistant staph aureus) culture positive Osteomyelitis of ankle or foot Pericardial effusion Pneumonia due to COVID-19 virus Puncture wound of toe of left foot Type 2 diabetes mellitus Vaginal candidiasis Venous insufficiency Home Medications ferrous sulfate 325 mg (65 mg iron) tablet 325 mg PO DAILY 03/10/20 [History Last Taken 07/07/20] multivitamin 1 tab PO DAILY 05/21/20 [History Last Taken Unknown] loratadine 10 mg tablet 10 mg PO DAILY 08/13/20 [History Last Taken Unknown] amlodipine 5 mg tablet 5 mg PO DAILY 11/04/20 [History Last Taken Unknown] aspirin 81 mg tablet,delayed release 81 mg PO DAILY 11/04/20 [History Last Taken Unknown] furosemide 40 mg tablet 40 mg PO DAILY PRN Water retention 11/04/20 [History Last Taken Unknown] magnesium chloride 71.5 mg (magnesium chloride) tablet,delayed release 71.5 mg PO DAILY 11/04/20 [History Last Taken Unknown] omeprazole 20 mg capsule,delayed release 40 mg PO BID 11/04/20 [History Last Taken Unknown] prednisone 5 mg tablet 5 mg PO DAILY Check with primary doctor 11/04/20 [History Last Taken Unknown] tacrolimus 1 mg capsule, immediate-release 1 mg PO DAILY Check with primary doctor 11/04/20 [History Last Taken Unknown] biotin 10,000 mcg capsule 10,000 mcg PO DAILY 01/11/21 [History Last Taken Unknown] albuterol sulfate 90 mcg/actuation aerosol inhaler 2 puff inhalation Q6H PRN shortness of breath or wheezing #8.5 grams 04/19/21 [Rx Last Taken Unknown] dicyclomine 10 mg capsule 10 mg PO TID IBS 07/19/21 [History Last Taken Unknown] sulfamethoxazole 400 mg-trimethoprim 80 mg tablet (Bactrim) 1 tab PO DAILY #30 tabs 07/23/21 [Rx Last Taken Unknown] budesonide-formoterol HFA 160 mcg-4.5 mcg/actuation aerosol inhaler (Symbicort) 2 puff inhalation BID #1 ea 08/12/21 [Rx Last Taken Unknown] blood sugar diagnostic (True Metrix Glucose Test Strip) #10 ea 08/16/21 [History Last Taken Unknown] cholecalciferol (vitamin D3) 50 mcg (2,000 unit) capsule 50 mcg PO DAILY 08/16/21 [History Last Taken Unknown] folic acid 20 mg capsule 20 mg PO DAILY 08/16/21 [History Last Taken Unknown] gabapentin 300 mg capsule 300 mg PO TID PRN Check with primary doctor 08/16/21 [History Last Taken Unknown] hydroxyzine HCl 10 mg tablet 10 mg PO Q8H PRN itching #30 tabs 08/16/21 [Rx Last Taken Unknown] mycophenolate mofetil 250 mg capsule 750 mg PO BID 08/16/21 [History Last Taken Unknown] loperamide 2 mg capsule 2 mg PO BID PRN Diarrhea #60 caps 11/15/21 [Rx Last Taken Unknown] insulin lispro 100 unit/mL subcutaneous pen (Humalog KwikPen (U-100) Insulin) 10 unit (0.1 mL) subcut TID #15 mL 12/02/21 [Rx Last Taken Unknown] ciprofloxacin HCl 250 mg tablet 250 mg PO BID 04/18/22 [History Last Taken Unknown] insulin glargine 100 unit/mL (3 mL) subcutaneous pen (Lantus Solostar U-100 Insulin) 15 unit (0.15 mL) subcut QHS Type 2 Diabetes 1 month #4.5 mL 04/18/22 [Rx Last Taken Unknown] blood sugar diagnostic (FreeStyle Lite Strips) #100 ea 04/20/22 [Rx Last Taken Unknown] blood-glucose meter (FreeStyle Lite Meter kit) #1 ea 04/20/22 [Rx Last Taken Unknown] lancets 28 gauge (FreeStyle Lancets) #100 ea 04/20/22 [Rx Last Taken Unknown] glimepiride 2 mg tablet 2 mg PO BID 3 months #180 tabs 05/10/22 [Rx Last Taken Unknown] Allergy/AdvReac Type Severity Reaction Status Date / Time Latex, Natural Rubber Allergy Severe Rash Verified 05/27/22 14:39 Penicillins Allergy Severe Swelling Verified 05/27/22 14:39 lactose AdvReac Severe Diarrhea Verified 05/27/22 14:39 Family History Mother Diabetes Heart disease Hypertension Father Diabetes Heart disease Hypertension Brother Diabetes Hypertension Heart disease Surgical History Amputated toe H/O: hysterectomy History of section History of colonoscopy (~02/2016) History of esophagogastroduodenoscopy (EGD) Hx of cardiac catheterization Kidney transplant recipient S/P kidney transplant S/P laparoscopic cholecystectomy (~06/2018) Tibia/fibula fracture Social History household members: none current occupational status: previously employed current occupation: worked in [employer] Smoking Status: Never smoker second hand exposure: No alcohol intake: never substance use type: does not use caffeine: No what type of physical activity do you participate in: none frequency: does not exercise do you feel safe at home: Yes ROS ROS ED Constitutional Constitutional ED: Denies chills or fever(s) Eyes Eyes: Denies change in vision or discharge from eye(s) ENT ENT ED: Denies discharge from eye(s), rhinorrhea or sore throat Cardiovascular Cardiovascular: Denies chest pain or palpitations Respiratory/Chest Respiratory/Chest: Denies cough or dyspnea Gastrointestinal Gastrointestinal: Denies abdominal pain, diarrhea, nausea or vomiting Genitourinary Genitourinary ED: Reports urinary frequency and other Details: Urinary frequency only after receiving oral glucose tablets. ; Denies dysuria Musculoskeletal Musculoskeletal: Denies back pain or extremity pain Integumentary Denies Abrasions or rash Neurologic Neurologic: Denies headache(s) or weakness Psychiatric Psychiatric: Denies anxiety or depression Endocrine Endocrinology: Denies polydipsia Allergic/Immunologic Allergic/Immunologic ED: Denies lip swelling or urticaria EXAM Physical Exam Const Vital Signs: 05/27/22 14:40 05/27/22 14:44 Temperature 98.0 F Temperature Source Oral Pulse Rate 76 Respiratory Rate 18 Respiratory Effort Normal Non-Labored Respiratory Pattern Normal Blood Pressure 149/79 H Blood Pressure Mean 102 Pulse Ox 100 Oxygen Delivery Method Room Air Positive well nourished and well developed General Appearance ED: well developed HEENT Reports normocephalic and head/scalp atraumatic Eyes PERRL and EOMs intact bilaterally Neck supple Chest Wall inspection of chest normal and palpation of chest normal Resp normal respiratory effort and clear to auscultation bilaterally Cardio regular rate and regular rhythm GI normal to inspection, nondistended, normoactive bowel sounds Palpation: soft Extremity normal to inspection Neuro oriented x3 and no sensory deficits noted Sensorium / Orientation: alert Motor Exam: strength 5/5 throughout Psych mental status grossly normal Skin no rashes or lesions noted MDM MDM MDM Narrative Medical decision making narrative: Patient has eaten and feels completely back to baseline now. Blood sugar on arrival to the ER was 114. We will recheck her blood sugar now and if normal can be discharged to home. Treatment and Re-Evaluation Narrative: Repeat blood pressure sugar is 143. Patient is stable and wishes to go home. She will resume her medications and check her blood sugars frequently. Discharge Plan Triage Chief Complaint: Hypoglycemia ED Provider: Micaela Szymanski Dx/Rx/DC Orders Clinical Impression: Hypoglycemia Instructions: ED Diabetic Insulin Reaction Prescriptions: No Action loratadine 10 mg tablet 10 mg PO DAILY Label Comments: TAKE 1 TABLET BY MOUTH DAILY aspirin 81 mg tablet,delayed release (DR/EC) 81 mg PO DAILY Label Comments: TAKE 1 TABLET BY MOUTH EVERY DAY amlodipine 5 mg tablet 5 mg PO DAILY Label Comments: TAKE 1 TABLET BY MOUTH EVERY DAY furosemide 40 mg tablet 40 mg PO DAILY PRN (Reason: Water retention) Label Comments: Take 1 tablet by mouth twice daily. magnesium chloride 71.5 mg tablet,delayed release (DR/EC) 71.5 mg PO DAILY Label Comments: Take 1 tablet by mouth once daily. tacrolimus 1 mg capsule 1 mg PO DAILY Label Comments: TAKE 2 CAPSULES BY MOUTH EVERY MORNING AND TAKE 1 CAPSULES BY MOUTH EVERY EVENING -ON A 12 HOUR SCHEDULE- prednisone 5 mg tablet 5 mg PO DAILY biotin 10,000 mcg capsule 10,000 mcg PO DAILY budesonide-formoterol [Symbicort] 160-4.5 mcg/actuation HFA aerosol inhaler 2 puff inhalation BID Qty: 1 3RF Rx Instructions: administer with spacer, rinse mouth after each use (DME) True Metrix Glucose Test Strip Strip See Rx Instructions .ROUTE .MEDSUPPLY Qty: 10 Rx Instructions: As directed mycophenolate mofetil 250 mg capsule 750 mg PO BID cholecalciferol (vitamin D3) 50 mcg (2,000 unit) capsule 50 mcg PO DAILY folic acid 20 mg capsule 20 mg PO DAILY hydroxyzine HCl 10 mg tablet 10 mg PO Q8H PRN (Reason: itching) Qty: 30 0RF loperamide 2 mg capsule 2 mg PO BID PRN (Reason: Diarrhea) Qty: 60 0RF ciprofloxacin HCl 250 mg tablet 250 mg PO BID insulin glargine [Lantus Solostar U-100 Insulin] 100 unit/mL (3 mL) insulin pen 15 unit SUBCUT QHS 30 Days Qty: 4.5 1RF ferrous sulfate 325 MG tablet 325 mg PO DAILY multivitamin 1 TABLET tablet 1 tab PO DAILY omeprazole 20 mg capsule,delayed release(DR/EC) 40 mg PO BID dicyclomine 10 mg Capsule 10 mg PO TID sulfamethoxazole-trimethoprim [Bactrim] 400-80 mg tablet 1 tab PO DAILY Qty: 30 1RF gabapentin 300 mg capsule 300 mg PO TID PRN (Reason: Check with primary doctor) Label Comments: TAKE 1 CAPSULE THREE TIMES DAILY albuterol sulfate 90 mcg/actuation HFA aerosol inhaler 2 puff inhalation Q6H PRN (Reason: shortness of breath or wheezing) Qty: 8.5 6RF insulin lispro [Humalog KwikPen Insulin] 100 unit/mL insulin pen 10 unit subcut TID Qty: 15 1RF (DME) FreeStyle Lite Strips Strip See Rx Instructions .Route Qty: 100 11RF Rx Instructions: use as directed 3 times daily to monitor blood glucose for type 2 DM (DME) blood-glucose meter [FreeStyle Lite Meter] Kit See Rx Instructions .Route Qty: 1 0RF Rx Instructions: use as directed 3 times daily to monitor blood glucose for type 2 DM (DME) lancets [FreeStyle Lancets] 28 gauge misc See Rx Instructions .Route Qty: 100 3RF Rx Instructions: use as directed 3 times daily to monitor blood glucose for type 2 DM glimepiride 2 mg tablet 2 mg PO BID 90 Days Qty: 180 1RF Primary Care Provider: Charlene Downs Referrals: Charlene Downs MD [Primary Care Provider] - As Needed Disposition Disposition: Home, Self Care
[2022-05-27 16:21] LABS: Bedside Glucose 142 mg/dL (74-106)
[2022-05-31 08:18] LABS: Bedside Glucose 114 mg/dL (74-106)
== END 2022-05-27 16:17 | disposition home or self-care (01) ==
PROVIDERS: Emergency Provider Emergency Medicine; PCP Internal Medicine; Visit Provider Emergency Medicine
DX: E11.649 Type 2 diabetes mellitus with hypoglycemia without coma (principal); E11.42 Type 2 diabetes mellitus with diabetic polyneuropathy; E11.22 Type 2 diabetes mellitus with diabetic chronic kidney disease; N18.4 Chronic kidney disease, stage 4 (severe); Z79.4 Long term (current) use of insulin; I12.9 Hypertensive chronic kidney disease with stage 1 through stage 4 chronic kidney disease, or unspecified chronic kidney disease; K21.9 Gastro-esophageal reflux disease without esophagitis; Z79.899 Other long term (current) drug therapy; Z79.82 Long term (current) use of aspirin; Z79.84 Long term (current) use of oral hypoglycemic drugs; Z94.0 Kidney transplant status
CPT/HCPCS: 82962; 99284

== ENCOUNTER → 2022-06-16 | Outpatient (CLI) | payer MEDICARE, MEDICAID, SELFPAY ==
--- NOTE | 2022-06-16 15:04 | RAD_ITS ---
EXAM: XR LUMBOSACRAL SPINE, 4 OR 5 VIEWS CLINICAL INDICATION: Chronic Back Pain TECHNIQUE: Frontal, lateral and bilateral oblique views of the lumbar spine. This report was created using [employer] report generation technology. COMPARISON: None. FINDINGS: VERTEBRAE: There is a chronic appearing compression deformity of T11. No spondylolisthesis. Preservation of the normal lumbar lordosis. No significant facet arthropathy. DISC SPACES: No acute findings. Disc spaces are maintained. GASTROINTESTINAL TRACT: Unremarkable as visualized. Included bowel gas pattern is non-obstructive. RAD/L/S Spine Min 4 Views IMPRESSION: No acute osseous abnormalities. There is a chronic appearing compression deformity of T11. Electronically Signed: Dario Wright MD at 0:10 EDT ,
== END | disposition home or self-care (01) ==
LOC: MTRAD 15:04
PROVIDERS: PCP Internal Medicine; Referring Provider Internal Medicine; Visit Provider Internal Medicine
DX: M54.9 Dorsalgia, unspecified (principal)
CPT/HCPCS: 72110

== ENCOUNTER → 2022-07-12 | Outpatient (CLI) | payer MEDICARE, SELFPAY ==
--- NOTE | 2022-07-12 13:51 | BD_ITS ---
STUDY: DUAL ENERGY X-RAY ABSORPTIOMETRY / DXA REASON FOR EXAM: Female, 57 years old. Post Menopausal. Compression Fracture TECHNIQUE: Bone Mineral Density (BMD) measurements of lumbar spine and bilateral hips were obtained. COMPARISON: None. FINDINGS: Lumbar Spine (L1-L4): g/cm2 (1.120) / T-score (0.9) / Z-score (2.0) Findings are suggestive of normal bone density with a low fracture risk. Left Femur Total: g/cm2 (0.830) / T-score (-0.9) / Z-score (-0.2) Left Femoral Neck: g/cm2 (0.539) / T-score (-2.8) / Z-score (-1.7) Right Femur Total: g/cm2 (0.895) / T-score (-0.4) / Z-score (0.4) Right Femoral Neck: g/cm2 (0.593) / T-score (-2.3) / Z-score (-1.2) BD/Dexa Bone Density Study IMPRESSION: The patient is considered osteoporotic as outlined below according to World Franco Organization (WHO) criteria with a high fracture risk. Reference Information: The T-score is the number of standard deviations above or below the standard which is normal for young adults at their peak bone mineral density. The World Health Organization (WHO) interprets the T-scores as follows: Above -1 Normal bone density Between -1 and -2.5 Osteopenia Equal to / or below -2.5 Osteoporosis As a practical clinical guideline, osteopenia may be graded as follows: Mild -1 through -1.5 Moderate -1.6 through -2.0 Severe -2.1 through -2.4 The Z-score is the number of standard deviations above or below age-matched controls. A Z-score of less than -1.5 would be considered abnormal. References: 1. NIH Osteoporosis and Related Bone Diseases www osteo.org 2. International Society for Clinical Densitometry www iscd.org 3. National Osteoporosis Foundation www nof.org Electronically Signed: Mauro Gannon MD at 15:50 EDT ,
== END | disposition home or self-care (01) ==
LOC: OPBD 13:35
PROVIDERS: PCP Internal Medicine; Referring Provider Internal Medicine; Visit Provider Internal Medicine
DX: Z78.0 Asymptomatic menopausal state (principal)
CPT/HCPCS: 77080

== ENCOUNTER → 2022-09-22 | Outpatient (CLI) | payer MEDICARE, MEDICAID, SELFPAY ==
[2022-09-22 12:04] LABS: Absolute Lymphocyte Count 0.97 X10^3/uL (0.83-4.51); Absolute Neutrophil Count 4.6 X10^3/uL (2.0-7.7); Basophil# 0.04 X10^3/uL; Basophil% 0.6 % (0-1); Eosinophil# 0.09 X10^3/uL; Eosinophils% 1.4 % (0-5); Hematocrit 41.3 % (37-47); Hemoglobin 12.6 g/dL (12.0-15.0); Lymphocyte # 0.97 X10^3/ul (0.83-4.51); Lymphocyte % 15.5 % (19-41); Mean Corp Hgb Conc 30.5 g/dL (32-36); Mean Corpuscular Volume 85.2 fL (81-99); Mean Platelet Vol. 11.8 fl (6.2-12.0); NRBC Flagged by Analyzer 0 % (0-5); Neutrophil # 4.62 X10^3/uL (2.7-7.7); Platelet Count 259 K/mm3 (150-450); RBC Distribution Width CV 14.8 % (11.6-14.6); RBC Distribution Width SD 45.7 fl (35.1-43.9); Red Blood Count 4.85 M/mm3 (4.2-5.4); White Blood Count 6.3 K/mm3 (4.4-11.0)
[2022-09-22 12:34] LABS: ALB/GLOB Ratio 0.9 RATIO (0.9-2.4); AST(SGOT) 14 U/L (15-37); Alanine Aminotransfer ALT/SGPT 14 U/L (13-56); Albumin, Serum 3.2 g/dL (3.2-5.0); Alkaline Phosphatase 71 U/L (45-117); Anion Gap 3 (5-15); BUN 25 mg/dL (7-18); BUN/Creat Ratio 27.9 RATIO (10-20); Calcium,Total 8.7 mg/dL (8.5-10.1); Chloride 108 mmol/L (98-107); EST Glomerular Filtration Rate 69 mL/min (>60); Est Glom Filt Rate - Afr Amer 84 mL/min (>60); Globulin 3.5 g/dL (2.2-4.2); Glucose 98 mg/dL (74-106); LDH 134 U/L (84-246); Protein, Total 6.7 g/dL (6.4-8.2); Sodium Level 140 mmol/L (136-145)
[2022-09-22 12:36] LABS: Erythrocyte Sedimentation Rate 30 mm/hr (0-30)
[2022-09-23 14:10] LABS: Anti-Centromere B Ab <0.2 AI (0.0-0.9); Anti-Chromatin <0.2 AI (0.0-0.9); Anti-Jo <0.2 AI (0.0-0.9); Anti-Scleroderma-70 AB <0.2 AI (0.0-0.9); Anti-dsDNA Ab <1 IU/mL (0-9); RNP Ab <0.2 AI (0.0-0.9); SJOGREN'S Anti-SS-A test < 0.2 AI (0.0-0.9); SJOGREN'S Anti-SS-B test < 0.2 AI (0.0-0.9); Smith Ab <0.2 AI (0.0-0.9)
[2022-09-23 15:08] LABS: Endomysial Antibody IgA Negative (Negative); Immunoglobulin A 255 mg/dL (87-352); t-Transglutaminase IgA <2 U/mL (0-3)
[2022-09-26 16:09] LABS: Albumin 3.4 g/dL (2.9-4.4); Alpha-1-Globulins 0.2 g/dL (0.0-0.4); Alpha-2-Globulins 0.9 g/dL (0.4-1.0); Cytoplasmic Ab (C-ANCA) <1:20 titer (Neg:<1:20); Gamma Globulin 0.7 g/dL (0.4-1.8); Gastrin, Serum 63 pg/mL (0-115); Immunoglobulin A 249 mg/dL (87-352); Immunoglobulin E 3 IU/mL (6-495); Immunoglobulin G 793 mg/dL (586-1602); Immunoglobulin M 32 mg/dL (26-217); PROEL- TOTAL PROTEIN 6.2 g/dL (6.0-8.5); Perinuclear Ab (P-ANCA) <1:20 titer (Neg:<1:20)
== END | disposition home or self-care (01) ==
PROVIDERS: PCP Internal Medicine; Referring Provider Internal Medicine Gastroenterology; Visit Provider Internal Medicine Gastroenterology
DX: K58.9 Irritable bowel syndrome, unspecified (principal); E11.42 Type 2 diabetes mellitus with diabetic polyneuropathy
CPT/HCPCS: 36415; 80053; 82784; 82785; 82941; 83516; 83615; 84165; 85025; 85652; 86140; 86225; 86235; 86255; 86256; 86334

== ENCOUNTER → 2022-09-23 | Outpatient (CLI) | payer MEDICARE, MEDICAID, SELFPAY ==
[2022-09-29 16:09] LABS: Pancreatic Elastase, Fecal 247 (>200)
[2022-09-30 11:09] LABS: Calprotectin, Stool 88 ug/g (0-120)
== END | disposition home or self-care (01) ==
LOC: LABSPEC 13:43
PROVIDERS: PCP Internal Medicine; Referring Provider Internal Medicine Gastroenterology; Visit Provider Internal Medicine Gastroenterology
DX: K58.9 Irritable bowel syndrome, unspecified (principal)
CPT/HCPCS: 82653; 83630; 83993; 87177; 87209; 87329; 87493

== ENCOUNTER → 2022-10-13 | Outpatient (CLI) | payer MEDICARE, MEDICAID, SELFPAY | END | disposition home or self-care (01) | LOC: BIMLAB 09:40 | PROVIDERS: PCP Internal Medicine; Visit Provider Internal Medicine Gastroenterology | DX: R15.9 Full incontinence of feces (principal) | CPT/HCPCS: 36415; 82533 ==

== ENCOUNTER → 2022-10-22 | Outpatient (CLI) | payer MEDICARE, MEDICAID, SELFPAY ==
[2022-10-26 07:14] LABS: 5-HIAA, 24UR 4.7 mg/24 hr (0.0-14.9); 5-HIAA, UR 2.6 mg/L (Undefined)
== END | disposition home or self-care (01) ==
LOC: LABSPEC 09:56
PROVIDERS: PCP Internal Medicine; Referring Provider Internal Medicine Gastroenterology; Visit Provider Internal Medicine Gastroenterology
DX: R15.9 Full incontinence of feces (principal)
CPT/HCPCS: 81050; 83497